=== PATIENT | female | born 1940 | race Hispanic/Latino ===

== ENCOUNTER 2016-06-29 11:48 | Inpatient (IN) | payer MEDICARE, BC ==
[2016-06-29 12:08] VITALS: BMI 41.5
[2016-06-29] MEDS ORDERED: Sodium Chloride 0.9% 1,000 ML IV STA ×4 (12:18→17:48)
--- NOTE | 2016-06-29 12:28 | ED PDOC ---
Arrival/HPI - General Chief Complaint: Trauma Time Seen by Provider: 06/29/16 12:07 Historian: Patient - History of Present Illness Narrative History of Present Illness (Text): 06/29/16 12:30 Sneha Duarte is 75 year old female, whose past medical history includes CHF , TIA, hypertension, leg cellulitis, and hypothyroidism, presents to the emergency department for evaluation following a fall 3 days prior to arrival. States that she was feeling dizzy and about to pass out before she fell to the ground. Patient was unable to get back onto her feet after, and remained on the ground for 3 days until her neighbour checked up on her today. Patient sustained bruises to the right sided face and shoulder due to fall. Denies any loss of consciousness, or weakness/numbness to extremity. Denies fever, chills, chest pain, shortness of breath, nausea, vomiting, diarrhea, urinary incontinence, or any other complaints at this time. Time/Duration: < week (3 days ) Symptom Onset: Gradual Severity Level: Moderate Activities at Onset: Significant Context: Other (fall ) Past Medical History - Provider Review Nursing Documentation Reviewed: Yes - Infectious Disease Hx of Infectious Diseases: None - Cardiac Hx Cardiac Disorders: No Hx Pacemaker: No - Neurological Hx Paralysis: No - Endocrine/Metabolic Hx Endocrine Disorders: Yes Hx Hypothyroidism: Yes - Hematological/Oncological Hx Blood Disorders: Yes Hx Blood Transfusions: Yes Hx Blood Transfusion Reaction: No - Integumentary Other/Comment: cellulitis bilateral lower legs - Musculoskeletal/Rheumatological Hx Musculoskeletal Disorders: Yes - Gastrointestinal Hx Gastrointestinal Disorders: Yes (GI BLEED) - Genitourinary/Gynecological Hx Genitourinary Disorders: No Hx Reproductive Disorders: No - Psychiatric Hx Psychophysiologic Disorder: No Hx Emotional Abuse: No Hx Physical Abuse: No Hx Substance Use: No - Surgical History Hx Hysterectomy: Yes (1983) Hx Orthopedic Surgery: Yes (bilateral knee replacements) Other/Comment: right knee replacement 2012, left knee replacement 2003 - Anesthesia Hx Anesthesia Reactions: No Hx Malignant Hyperthermia: No - Suicidal Assessment Feels Threatened In Home Enviroment: No Family/Social History - Physician Review Nursing Documentation Reviewed: Yes Family/Social History: No Known Family HX Smoking Status: Never Smoked Hx Alcohol Use: No Hx Substance Use: No Hx Substance Use Treatment: No Allergies/Home Meds Allergies/Adverse Reactions: Allergies No Known Allergies Allergy (Verified 06/29/16 12:08) Home Medications: Home Meds Medication Instructions Recorded Confirmed Levothyroxine Sodium [Synthroid] 75 mcg PO DAILY 07/19/12 07/31/15 Linagliptin [Tradjenta] 5 mg PO DAILY 07/19/12 07/31/15 Cholecalciferol [Vitamin D3] 2,000 iu PO DAILY 08/08/13 07/31/15 Cyanocobalamin [Vitamin B12] 1,000 mcg PO BID 08/08/13 07/31/15 Fish Oil [Beeler 3] 1,000 mg PO DAILY 08/08/13 07/31/15 Potassium Chloride 20 meq PO DAILY 08/08/13 07/31/15 Aspirin [Ecotrin] 81 mg PO DAILY 07/27/15 07/31/15 Atorvastatin [Lipitor] 20 mg PO DAILY 07/27/15 07/31/15 Magnesium Oxide [Magnesium] 400 mg PO DAILY 07/27/15 07/31/15 Review of Systems - Physician Review All systems were reviewed & negative as marked: Yes - Review of Systems Constitutional: Normal. absent: Fatigue, Fevers Respiratory: Normal. absent: SOB, Cough Cardiovascular: absent: Chest Pain, Palpitations Gastrointestinal: absent: Abdominal Pain, Diarrhea, Nausea, Vomiting Musculoskeletal: Other (right shoulder and right facial ecchymosis ) Skin: Normal Neurological: Dizziness. absent: Focal Weakness Psychiatric: Normal Physical Exam - Physical Exam Narrative Physical Exam (Text): No nasal bone deformity or tenderness. There is right facial ecchymosis. No neck midline tenderness, thoracic and lumbar spine with no midline tenderness. Pt moving b/l upper and lower extremities without difficulty, 5/5 strength, with full active and passive ROM. Right shoulder ecchymosis with tenderness to palpation. Distal neurovasc fully intact. Abd soft/nt/ng, no hematomas, no peritoneal signs. Neg. pelvic rock. - Physical exam Patient appears age appropriate, speaking full sentences without difficulty - Systems Exam Head: Present: Normocephalic, right sided facial ecchymosis Pupils: Present: PERRL Extraocular Muscles: Present: EOMI Conjunctiva: Present: Normal Mouth: Present: Moist Mucous Membranes Neck: Present: Normal Range of Motion. No: MIDLINE TENDERNESS, Paraspinal Tenderness Respiratory/Chest: Present: Clear to Auscultation, Good Air Exchange. No: Respiratory Distress, Accessory Muscle Use, Tachypneic Cardiovascular: Present: Regular Rate and Rhythm, Normal S1, S2, Peripheral Pulses Present. No: Murmurs Abdomen: Present: Normal Bowel Sounds, No: Tenderness, Peritoneal Signs, Rebound, Guarding, Distention Back: Present: Normal Inspection. No: Midline Tenderness, Paraspinal Tenderness Upper Extremity: Present: Right shoulder ecchymosis with tenderness to palpation No: Cyanosis, Edema Lower Extremity: Present: Normal Inspection. No: Edema Neurological: Present: GCS=15, Speech Normal, cranial nerves II through XII fully intact with no cerebellar abnormality, neuro-sensory fully intact. No focal neurological deficits. Skin: Present: Warm, Dry, Normal Color. No: Rashes Lymphatic: Present: OX3, NI, NC Psychiatric: Present: Alert, Oriented x 3, Normal Insight, Normal Concentration Vital Signs Reviewed: Yes Vital Signs Temp Pulse Resp BP Pulse Ox 06/29/16 17:00 105 H 18 135/69 96 06/29/16 15:11 99 H 18 117/67 98 06/29/16 13:48 98 H 18 99/53 L 95 06/29/16 11:48 98.1 F 98 H 19 124/65 98 Blood Pressure: Normal Pulse: Tachycardic Respiratory Rate: Normal Appearance: Positive for: Well-Appearing, Non-Toxic, Comfortable Pain Distress: None Mental Status: Positive for: Alert and Oriented X 3 Finger Stick Blood Glucose: 261 Medical Decision Making ED Course and Treatment: Impression: A 75 year old female who presents to the emergency department complaining of bruising to right sided face and right shoulder following a fall 3 days prior to arrival. States that she has been feeling dizzy and about to pass out before falling down. On PE, there is ecchymosis to right sided face, and right shoulder. Differential Diagnosis include but are not limited to: Plan: -- CT cervical spine -- CT head -- CT maxillofacial -- EKG -- Labs, cardiac enzymes -- Chest X-ray -- Hip and Right shoulder X-ray -- Blood culture -- Urine culture -- Urinalysis -- Reassess and disposition Progress Notes: 06/29/16 14:[address] scan results, which were unremarkable. 06/29/16 16:[address] Bains who states he will evaluate the patient. Dr. Charlotte mccray. Case discussed with Dr. Tellez, covering for Dr. Porter, who accepts to Dr. Porter's service. Patient in no distress. Patient agrees with plan. - Critical Care Critical Care Minutes: 30 minutes - Lab Interpretations Lab Results: 06/29/16 12:56 06/29/16 15:20 Lab Results 06/29/16 18:05: pO2 96 H, VBG pH 7.40, VBG pCO2 36.0 L, VBG HCO3 22.3, VBG Total CO2 23.4, VBG O2 Sat (Calc) 97.9 H, VBG Base Excess -2.0 L, VBG Potassium 4.7, Sodium 134.0, Chloride 101.0, Glucose 216 H, Lactate 2.2 H, FiO2 21.0, Venous Blood Potassium 4.7 06/29/16 15:20: Sodium 134, Chloride 94 L, Potassium 5.1 H, Carbon Dioxide 23, Anion Gap 22 H, BUN 42 H, Creatinine 2.5 H, Est GFR ( Amer) 23, Est GFR ( Non-Af Amer) 19, Random Glucose 252 H, Calcium 8.9, Total Bilirubin 1.6 H, AST 1038 H, ALT 285 H, Alkaline Phosphatase 106, Lactate Dehydrogenase 2310 H, Total Creatine Kinase 85307 H, CK-MB (CK-2) 431.0 H, CK-MB (CK-2) % 0.8 L, Troponin I 0.12, Total Protein 7.7, Albumin 3.6, Globulin 4.1, Albumin/Globulin Ratio 0.9 L, Salicylates < 1 L, Acetaminophen < 10.0 L 06/29/16 14:27: Urine Color Yellow, Urine Appearance Clear, Urine pH 6.0, Ur Specific [place] 1.010, Urine Protein 30 H, Urine Glucose (UA) Negative, Urine Ketones Negative, Urine Blood Small H, Urine Nitrate Negative, Urine Bilirubin Negative, Urine Urobilinogen 0.2, Ur Leukocyte Esterase Negative, Urine RBC 0 - 2, Urine WBC 0 - 2, Ur Epithelial Cells 0 - 2 06/29/16 12:56: WBC 37.8 H* D, RBC 4.73, Hgb 15.6, Hct 44.3, MCV 93.7, MCH 33.0 , MCHC 35.2, RDW 14.3, Plt Count 397, MPV 10.2, Neutrophils % (Manual) 91 H, Lymphocytes % (Manual) 2 L, Monocytes % (Manual) 7 H, Platelet Evaluation Normal , PT 11.2, INR 1.04, APTT 46.7 H I have reviewed the lab results: Yes - RAD Interpretation Narrative RAD Interpretations (Text): PROCEDURE: CT HEAD WITHOUT CONTRAST. Creator : Evelio Salazar MD IMPRESSION: Normal CT of the Head PROCEDURE: CT Cervical Spine without contrast Creator : Evelio Salazar MD IMPRESSION: No acute fracture. PROCEDURE: CT MAXILLOFACIAL BONES WITHOUT CONTRAST Creator : Evelio Salazar MD IMPRESSION: No acute fracture. PROCEDURE: X-ray Hip/Pelvis Creator : Evelio Salazar MD IMPRESSION: Normal Bone Xray. PROCEDURE: X-ray Shoulder Creator : Evelio Salazar MD IMPRESSION: No acute fracture Radiology Orders: 06/29/16 12:18 MAXILLOFACIAL W/O CONTRAST [CT] Stat CHEST PORTABLE [RAD] Stat 06/29/16 12:19 CERVICAL SPINE W/O CONTRAST [CT] Stat HEAD W/O CONTRAST [CT] Stat HIP MIN 2V W/ PELVIS SUN [RAD] Stat SHOULDER RIGHT [RAD] Stat 06/29/16 17:20 EXT UPPER W/O CONTRAST RIGHT [CT] Stat 06/29/16 17:29 ABDOMEN COMPLETE [US] Stat Prefitter Doors: Radiologist - Medication Orders Current Medication Orders: Sodium Chloride (Sodium Chloride 0.9%) 1,000 mls @ 999 mls/hr IV .Q1H1M STA Stop: 06/29/16 18:48 Pantoprazole Sodium (Protonix Inj) 40 mg IVP DAILY IAIN Discontinued Medications Sodium Chloride (Sodium Chloride 0.9%) 1,000 mls @ 1,000 mls/hr IV .Q1H STA Stop: 06/29/16 13:17 Last Admin: 06/29/16 14:09 Dose: 1,000 MLS/HR eMAR Start Stop Document 06/29/16 14:09 SARAH (Rec: 06/29/16 14:10 SARAH [id number]) Intravenous Solution Start Date 06/29/16 Start Time 13:30 End Date 06/29/16 End time 14:30 Total Infusion Time 60 Piperacillin Sod/Tazobactam Sod (Zosyn 4.5 Gm In Ns 100ml) 100 mls @ 200 mls/ hr IVPB STAT STA PRN Reason: Protocol Stop: 06/29/16 13:45 Last Admin: 06/29/16 14:10 Dose: 200 MLS/HR eMAR Start Stop Document 06/29/16 14:10 EWO (Rec: 06/29/16 14:10 EWO [id number]) Intravenous Solution Start Date 06/29/16 Start Time 14:10 End Date 06/29/16 End time 15:10 Total Infusion Time 60 Vancomycin HCl (Vancomycin 1gm) 250 mls @ 133.333 mls/hr IVPB STAT STA PRN Reason: Protocol Stop: 06/29/16 15:08 Last Admin: 06/29/16 15:32 Dose: 133.333 MLS/HR eMAR Start Stop Document 06/29/16 15:32 EWO (Rec: 06/29/16 15:32 EWO [id number]) Intravenous Solution Start Date 06/29/16 Start Time 15:15 End Date 06/29/16 End time 17:00 Total Infusion Time 105 Sodium Chloride (Sodium Chloride 0.9%) 1,000 mls @ 1,000 mls/hr IV .Q1H STA Stop: 06/29/16 16:50 Last Admin: 06/29/16 16:01 Dose: 1,000 MLS/HR eMAR Start Stop Document 06/29/16 16:01 EWO (Rec: 06/29/16 16:01 EWO [id number]) Intravenous Solution Start Date 06/29/16 Start Time 16:01 End Date 06/29/16 End time 17:01 Total Infusion Time 60 Sodium Chloride (Sodium Chloride 0.9%) 1,000 mls @ 999 mls/hr IV .Q1H1M STA Stop: 06/29/16 18:26 Last Admin: 06/29/16 17:48 Dose: 999 MLS/HR eMAR Start Stop Document 06/29/16 17:48 EWO (Rec: 06/29/16 17:49 EWO [id number]) Intravenous Solution Start Date 06/29/16 Start Time 17:48 End Date 06/29/16 End time 18:48 Total Infusion Time 60 - Scribe Statement The provider has reviewed the documentation as recorded by the Scribe Perla Muthuraman Provider Attestation: All medical record entries made by the Danicaibsharron were at my direction and personally dictated by me. I have reviewed the chart and agree that the record accurately reflects my personal performance of the history, physical exam, medical decision making, and the department course for this patient. I have also personally directed, reviewed, and agree with the discharge instructions and disposition. Disposition/Present on Arrival - Present on Arrival Any Indicators Present on Arrival: No History of DVT/PE: No History of Uncontrolled Diabetes: Yes Urinary Catheter: No History of Decub. Ulcer: No History Surgical Site Infection Following: None - Disposition Have Diagnosis and Disposition been Completed?: Yes Diagnosis: Rhabdomyolysis Disposition: HOSPITALIZED Disposition Time: 17:40 Patient Plan: Admission Condition: CRITICAL
[2016-06-29 13:09] LABS: HEMATOCRIT 44.3 % (36.0-48.0); MEAN CELL VOLUME 93.7 fL (80.0-105.0); MEAN CORPUSCULAR HGB CONC 35.2 g/dl (31.0-37.0); MEAN PLATELET VOLUME 10.2 fl (7.0-11.0); PLATELET COUNT 397 10^3/uL (120.0-450.0); RED CELL DISTRIBUTION WIDTH 14.3 % (11.5-14.5)
[2016-06-29 13:13] LABS: ADD MANUAL DIFF? YES
[2016-06-29 13:15] LABS: WHITE BLOOD COUNT 37.8 10^3/ul (4.5-11.0)
[2016-06-29 13:16] LABS: INR 1.04 (0.93-1.08); PARTIAL THROMBOPLASTIN TIME 46.7 Seconds (23.7-30.8)
[2016-06-29] MEDS ORDERED: Piperacill/Tazo 4.5gm in NS 100 ML IVPB STA (13:16)
[2016-06-29] MEDS ORDERED: Vancomycin 1gm in NS 250ml 250 ML IVPB STA ×2 (13:16→13:24)
--- NOTE | 2016-06-29 13:20 | CT ---
PROCEDURE: CT HEAD WITHOUT CONTRAST. HISTORY: fall COMPARISON: None available. TECHNIQUE: Axial computed tomography images were obtained through the head/brain without intravenous contrast. Radiation dose: Total exam DLP = 774 mGy-cm. This CT exam was performed using one or more of the following dose reduction techniques: Automated exposure control, adjustment of the mA and/or kV according to patient size, and/or use of iterative reconstruction technique. FINDINGS: HEMORRHAGE: No intracranial hemorrhage. BRAIN: No mass effect or edema. No atrophy or chronic microvascular ischemic changes. VENTRICLES: Unremarkable. No hydrocephalus. CALVARIUM: Unremarkable. PARANASAL SINUSES: Unremarkable as visualized. No significant inflammatory changes. MASTOID AIR CELLS: Unremarkable as visualized. No inflammatory changes. OTHER FINDINGS: None. IMPRESSION: Normal CT of the Head.
--- NOTE | 2016-06-29 13:22 | CT ---
PROCEDURE: CT Cervical Spine without contrast HISTORY: <fall> COMPARISON: None available. TECHNIQUE: Axial computed tomography images were obtained of the cervical spine without the use of intravenous contrast. Coronal and sagittal reformatted images were created and reviewed. Radiation dose: Total exam DLP = 624 mGy-cm. This CT exam was performed using one or more of the following dose reduction techniques: Automated exposure control, adjustment of the mA and/or kV according to patient size, and/or use of iterative reconstruction technique. FINDINGS: VERTEBRAE: No fracture. Normal alignment. No destructive bony lesion. DISCS/SPINAL CANAL/NEURAL FORAMINA: Multilevel degenerative disc disease with disc space narrowing and spondylosis. PARASPINAL SOFT TISSUES: Unremarkable. OTHER FINDINGS: None. IMPRESSION: No acute fracture.
--- NOTE | 2016-06-29 13:26 | CT ---
PROCEDURE: CT MAXILLOFACIAL BONES WITHOUT CONTRAST HISTORY: fall COMPARISON: None TECHNIQUE: Contiguous axial CT images of the maxillofacial bones were obtained. Coronal and sagittal reformats were generated. Radiation dose: Total exam DLP = 761 mGy-cm. This CT exam was performed using one or more of the following dose reduction techniques: Automated exposure control, adjustment of the mA and/or kV according to patient size, and/or use of iterative reconstruction technique. FINDINGS: NASAL BONES: Unremarkable. ORBITS: Unremarkable. PARANASAL SINUSES/ MASTOIDS: Clear. MAXILLA: Unremarkable. MANDIBLE/ TEMPOROMANDIBULAR JOINTS: Unremarkable. SKULL BASE: Unremarkable. TEMPORAL BONES: Middle ears and mastoid grossly unremarkable. OTHER FINDINGS: None. IMPRESSION: No acute fracture.
[2016-06-29 13:35] LABS: NEUTROPHIL 91 % (50.0-70.0); PLATELET ESTIMATE NORMAL (NORMAL)
[2016-06-29 15:00] LABS: URINE BILIRUBIN NEGATIVE (NEGATIVE); URINE BLOOD SMALL (NEGATIVE); URINE GLUCOSE (UA) NEGATIVE (NEGATIVE); URINE KETONE NEGATIVE (NEGATIVE); URINE LEUKOCYTE ESTERASE NEGATIVE Leu/uL (NEGATIVE); URINE PROTEIN 30 mg/dL (<30 mg/dL); URINE UROBILINOGEN 0.2 E.U./dL (<1 E.U./dL)
[2016-06-29 15:06] LABS: URINE APPEARANCE CLEAR (CLEAR); URINE COLOR YELLOW (YELLOW)
[2016-06-29 15:07] LABS: URINE EPITHELIAL CELLS 0 - 2 /hpf (0-5); URINE RBC 0 - 2 /hpf (0-2); URINE WBC 0 - 2 /hpf (0-6)
[2016-06-29 15:39] LABS: ALB/GLOB RATIO 0.9 (1.1-1.8); BILIRUBIN,TOTAL 1.6 mg/dL (0.2-1.3); CALCIUM 8.9 mg/dL (8.4-10.5); POTASSIUM 5.1 mmol/L (3.6-5.0); TOTAL PROTEIN 7.7 g/dL (5.8-8.3)
--- NOTE | 2016-06-29 15:59 | RAD ---
HISTORY: fall COMPARISON: No prior FINDINGS: BONES: Normal. No fracture. JOINTS: Normal. No osteoarthritis. SOFT TISSUE: Normal. OTHER FINDINGS: None . IMPRESSION: Normal Bone Xray.
--- NOTE | 2016-06-29 16:00 | RAD ---
PROCEDURE: Radiographs of the Right Shoulder HISTORY: fall COMPARISON: No prior. FINDINGS: BONES: Normal. No fracture. JOINTS: Degenerative changes of the acromioclavicular joint. SOFT TISSUES: Normal. OTHER FINDINGS: None. IMPRESSION: No acute fracture.
--- NOTE | 2016-06-29 16:02 | RAD ---
HISTORY: cough COMPARISON: No prior. FINDINGS: LUNGS: No active pulmonary disease. PLEURA: No significant pleural effusion identified, no pneumothorax apparent. CARDIOVASCULAR: Normal. OSSEOUS STRUCTURES: No significant abnormalities. VISUALIZED UPPER ABDOMEN: Normal. OTHER FINDINGS: None. IMPRESSION: No active disease.
[2016-06-29 16:04] LABS: TROPONIN I 0.12 ng/mL
[2016-06-29 18:30] LABS: AMYLASE 127 U/L (35-125); LIPASE 40 U/L (23-300)
[2016-06-29] MEDS: Sodium Chloride 0.9% 1,000 ML IV SCH (21:30)
--- NOTE | 2016-06-29 21:49 | CP.PCM.CON ---
History of Present Illness - History of Present Illness History of Present Illness: General Surgery Consult note for Dr. Elias Consulted for: Possible acute cholecystitis Pt is a 75y/o F with PMH including CHF, TIA, DM, and hypothyroidism and PSH of hysterectomy and BL knee replacements who presented the ED after falling and lying on the right side on the ground for 3 days after a syncopal episode. Patient reports that prior to her fall she had nausea and green vomit for 3 days. She was just coming out of the bathroom after vomiting when she felt light headed and fell to the ground, landing on her right side. Patient recalls decreased appetite a few days prior to her nausea and vomiting, but denies any abdominal pain, fevers, chills, diarrhea, constipation, chest pain, SOB, or any other symptoms at the time. Patient states that since her fall her nausea and vomiting have resolved and she was able to tolerate lindsey sonal with no negative sequela. Surgery is consulted for possible acute cholecystitis with an elevated bilirubin, AST, ALT, and amylase. Patient also has signs of rhabdomyolisis. PMH: CHF, DVT, TIA, HTN, DM, HLD, degenerative arthritis, hypothyroidism, chronic lower extremity cellulitis PSH: hysterectomy and BL knee replacements All: NKDA Social: 32 year history 1PPD cigarettes quit 30 years ago, admits social ETOH, denies illicit drug use, lives alone Review of Systems - Review of Systems All systems: reviewed and no additional remarkable complaints except (as per HPI ) - Constitutional Constitutional: As Per HPI, Fatigue. absent: Fever, Headache - Cardiovascular Cardiovascular: Leg Edema. absent: Chest Pain, Chest Pain with Activity, Dyspnea, Dyspnea on Exertion - Respiratory Respiratory: absent: Cough, Dyspnea, Dyspnea on Exertion - Gastrointestinal Gastrointestinal: As Per HPI. absent: Constipation, Diarrhea, Dyspepsia, Hematemesis - Genitourinary Genitourinary: absent: Difficulty Urinating, Dysuria, Hematuria - Musculoskeletal Musculoskeletal: Arthralgias, Numbness (right arm). absent: Back Pain Additional comments: unable to move right arm since fall - Integumentary Integumentary: Dry Skin, Skin Ulcer (back, groin, and under breasts) Additional comments: chronic cellulitis of the legs BL Past Patient History - Infectious Disease Hx of Infectious Diseases: None - Past Medical History & Family History Past Medical History?: Yes Past Family History: Reviewed and not pertinent - Past Social History Smoking Status: Former Smoker (>30 pack years 1 PPD, quit when 43 y/o) Alcohol: Social Drugs: Denies Home Situation {Lives}: Alone - CARDIAC Hx Cardiac Disorders: No Hx Hypercholesterolemia: Yes Hx Hypertension: Yes Hx Pacemaker: No - NEUROLOGICAL Hx Paralysis: No Hx Transient Ischemic Attacks (TIA): Yes - ENDOCRINE/METABOLIC Hx Endocrine Disorders: Yes Hx Diabetes Mellitus Type 2: Yes Hx Hypothyroidism: Yes - HEMATOLOGICAL/ONCOLOGICAL Hx Blood Disorders: Yes Hx Blood Transfusions: Yes Hx Blood Transfusion Reaction: No Other/Comment: DVT - INTEGUMENTARY Hx Cellulitis: Yes (BL LE) Other/Comment: cellulitis bilateral lower legs - MUSCULOSKELETAL/RHEUMATOLOGICAL Hx Musculoskeletal Disorders: Yes Hx Degenerative Joint Disease: Yes - GASTROINTESTINAL Hx Gastrointestinal Disorders: Yes (GI BLEED) - GENITOURINARY/GYNECOLOGICAL Hx Genitourinary Disorders: No Hx Reproductive Disorders: No - PSYCHIATRIC Hx Psychophysiologic Disorder: No Hx Emotional Abuse: No Hx Physical Abuse: No Hx Substance Use: No - SURGICAL HISTORY Hx Surgeries: Yes Hx Hysterectomy: Yes (1983) Hx Orthopedic Surgery: Yes (bilateral knee replacements) Other/Comment: right knee replacement 2012, left knee replacement 2003 - ANESTHESIA Hx Anesthesia Reactions: No Hx Malignant Hyperthermia: No Meds Allergies/Adverse Reactions: Allergies Allergy/AdvReac Type Severity Reaction Status Date / Time No Known Allergies Allergy Verified 06/29/16 12:08 - Medications Medications: Current Medications Piperacillin Sod/Tazobactam Sod (Zosyn 2.25 Gm In 0.9% 100 Ml) 100 mls @ 100 mls/hr IVPB Q6 IAIN PRN Reason: Protocol Stop: 06/30/16 06:59 Sodium Chloride (Sodium Chloride 0.9%) 1,000 mls @ 200 mls/hr IV .Q5H IAIN Pantoprazole Sodium (Protonix Inj) 40 mg IVP DAILY IAIN Physical Exam - Constitutional Appears: Non-toxic, No Acute Distress - Head Exam Head Exam: NORMOCEPHALIC. absent: ATRAUMATIC (Echymosis over the right face) - Eye Exam Eye Exam: Normal appearance. absent: Conjunctival injection, Scleral icterus - ENT Exam ENT Exam: Mucous Membranes Moist, Normal Oropharynx - Respiratory Exam Respiratory Exam: NORMAL BREATHING PATTERN. absent: Accessory Muscle Use, Respiratory Distress - Cardiovascular Exam Cardiovascular Exam: Tachycardia, REGULAR RHYTHM - GI/Abdominal Exam GI & Abdominal Exam: Distended (moderate distention due to body habitus), Mass ( palpable mass in the RUQ), Soft. absent: Tenderness - Extremities Exam Extremities exam: Positive for: pedal edema (2+ pitting edema from the feet to the knees BL), pedal pulses present. Negative for: calf tenderness, tenderness Additional comments: plaques of dry skin, mild erythema, no visible wounds or ulcers. Right arm 0/0 motor strength, no sensation to light touch, warm with good capillary refill - Neurological Exam Neurological exam: Alert, Oriented x3 - Skin Additional comments: Wet skin under the breast folds with superficial skin breakdown BL, superficial skin breakdown in the groin BL Results - Vital Signs Recent Vital Signs: Last Vital Signs Temp 98.1 F 06/29/16 11:48 Pulse 100 H 06/29/16 18:54 Resp 18 06/29/16 18:54 BP 103/45 L 06/29/16 18:54 Pulse Ox 97 06/29/16 18:54 - Labs Result Diagrams: 06/29/16 12:56 06/29/16 15:20 Assessment & Plan - Assessment and Plan (Free Text) Assessment: 75F with PMH including DM, hypothyroidism, HTN, and CHF with PSH including hysterectomy 3 days s/p fall recent history of nausea and bilious vomiting and current elevated LFT's afebrile, VSS with mild tachycardia WBC of 37.8 Elevated LFTs: bilirubin 1.6, AST of 1038, ALT 285 Alkaline phosphatase WNL Amylase 127 Abd US: 5 x6 x5cm echogenic lesion in the gallbladder fundus, no wall thickening , no sonographic de la vega's, CBD 0.7-0.86cm, no visible stones. Plan: -No indication for emergent surgery at this time -Vitals are stable, patient is afebrile -Leukocytosis could be an acute phase reaction -Patient is asymptomatic, abdominal exam not acute -Current DIMITRY -Abdominal US without signs of inflammation -CT of the abdomen and pelvis with PO contrast -MRCP -Close follow up with serial abdominal exams -f/u CBC, CMP -f/u GI recs -IVF -Continue Abx -NPO -barrier skin cream for areas of skin breakdown Thank you for this consult Further recs per Dr. Curt Lua, PGY1
--- NOTE | 2016-06-29 22:08 | US ---
EXAM: US Abdomen Complete CLINICAL HISTORY: 75 years old, female; Pain; Abdominal pain; Generalized; Additional info: Obstructive jaundice TECHNIQUE: Real-time ultrasound of the abdomen (complete) with image documentation. COMPARISON: US - ABDOMEN COMPLETE 03/15/2015 11:44:16 AM FINDINGS: Liver: Enlarged, 18.1 cm. Fatty infiltration. No mass. No intrahepatic ductal dilatation. Gallbladder: Gallstones. 5 x 6 x 5 cm echogenic, nonshadowing lesion within gallbladder fundus. No wall thickening. No sonographic Fournier's sign. Common bile duct: Up to 0.86 cm in diameter. No stones. Pancreas: Unremarkable as visualized. Kidneys: Normal echogenicity. Several renal cysts, largest measuring up to 6.1 cm. No hydronephrosis. Spleen: No splenomegaly. Aorta: Unremarkable. No aneurysm. Inferior vena cava: Unremarkable. Free fluid: No significant free fluid. IMPRESSION: 1. Gallbladder lesion. DDX: Neoplasm, tumefactive sludge. Followup as clinically warranted. 2. Biliary ductal dilatation. Suggest MRCP for further evaluation. 3. Cholelithiasis. 4. Incidental/non-acute findings are described above.
[2016-06-29] MEDS ORDERED: Iohexol 240 (50 ml) ONE (22:39)
--- NOTE | 2016-06-29 23:35 | CARD ---
APPROVED REPORT EKG Measurement Heart [id number] <Conclusion> Sinus tachycardia Possible Left atrial enlargement Borderline ECG
[2016-06-29] MEDS: Piperacillin/Tazobact 2.25gm 100 ML IVPB SCH (23:58)
[2016-06-30 04:15] LABS: ALB/GLOB RATIO 0.8 (1.1-1.8); CALCIUM 7.9 mg/dL (8.4-10.5); POTASSIUM 4.8 mmol/L (3.6-5.0)
[2016-06-30] MEDS ORDERED: Sodium Chloride 0.9% 250 ML IV STA (04:15)
[2016-06-30] MEDS: Nystatin 100,000 Units/gm Topical Pow(15 gm) TOP SCH ×3 (04:46→17:00)
[2016-06-30] MEDS: Piperacillin/Tazobact 2.25gm 100 ML IVPB SCH (05:13)
[2016-06-30] MEDS: Sodium Chloride 0.9% 1,000 ML IV SCH ×2 (05:14→22:28)
[2016-06-30 05:47] LABS: HEMATOCRIT 37.1 % (36.0-48.0); MEAN CELL VOLUME 92.3 fL (80.0-105.0); MEAN CORPUSCULAR HEMOGLOBIN 31.8 pg (25.0-35.0); MEAN CORPUSCULAR HGB CONC 34.5 g/dl (31.0-37.0); MEAN PLATELET VOLUME 9.8 fl (7.0-11.0); PLATELET COUNT 311 10^3/uL (120.0-450.0); RED CELL DISTRIBUTION WIDTH 14.4 % (11.5-14.5); WHITE BLOOD COUNT 20.7 10^3/ul (4.5-11.0)
[2016-06-30 06:01] LABS: ADD MANUAL DIFF? YES
[2016-06-30 06:16] LABS: ALB/GLOB RATIO 0.8 (1.1-1.8); CALCIUM 7.3 mg/dL (8.4-10.5); POTASSIUM 4.6 mmol/L (3.6-5.0); TOTAL PROTEIN 6.6 g/dL (5.8-8.3)
[2016-06-30] MEDS: Meropenem 1g/NS 100mL IVPB 100 ML IVPB SCH ×2 (06:43→22:28)
[2016-06-30] MEDS: Linezolid 600 mg in D5W 300 ml 300 ML IVPB SCH ×2 (06:50→22:29)
[2016-06-30 06:57] LABS: BAND 4 % (0-2); NEUTROPHIL 82 % (50.0-70.0); PLATELET ESTIMATE NORMAL (NORMAL)
--- NOTE | 2016-06-30 07:45 | CT ---
PROCEDURE: CT right upper extremity HISTORY: plexus hematoma COMPARISON: Not available TECHNIQUE: 2.5 mm contiguous axial sections were acquired through the right upper extremity from the supraclavicular region through the elbow. Sagittal and coronal images were reformatted from the axial scan. FINDINGS: The examination is suboptimally performed for evaluation of brachia plexus due to asymmetric positioning of the patient. There is no alexandro hematoma seen along the course of the brachial plexus. There is ill-defined soft tissue density seen along the course of the brachia plexus. This may represent blood products. Please note that evaluation with computed tomography, without intravenous contrast, is a limited method of evaluation for brachia plexus pathology. If there is continued clinical concern, recommend evaluation with magnetic resonance imaging. There is no osseous fracture appreciated. Glenohumeral articulation appears unremarkable. There is mild acromioclavicular degenerative arthritis. Evaluation of the visualized lungs limited. There is subsegmental atelectasis at the right lung base. Note is made of a 1.2 cm nodule posterior to the right lobe of the thyroid. Possibility of a parathyroid nodule must be considered. Evaluation with thyroid ultrasound examination is suggested. Note is made of noncalcified gallstones. Evaluation with abdominal ultrasound is suggested. Right upper pole renal cortical cyst. IMPRESSION: No evidence of alexandro hematoma or mass effect along the visualized course of the right brachia plexus. Evaluation is limited by the absence of intravenous contrast and is better evaluated with magnetic resonance imaging. There is evidence of some soft tissue density, possibly blood, along the course of the brachia plexus. Brachia plexus pathology is better evaluated with magnetic resonance imaging. Possible right parathyroid nodule. Alternatively, this could represent a pedunculated thyroid nodule. Recommend correlation with thyroid ultrasound examination. Probable cholelithiasis. Correlate with ultrasound examination. Right upper pole renal cortical cyst. Preliminary interpretation of this examination was reported by [facility] at 6:34 p.m. on 06/29/2016. There is concurrence of this report with the preliminary interpretation.
--- NOTE | 2016-06-30 08:13 | CON ---
DATE: 06/29/2016 HISTORY OF PRESENT ILLNESS: This is a 75-year-old lady with history of CHF, TIA , hypertension, hypothyroidism who presented to the Emergency Department for evaluation of status post fall and right-sided face bruising. That happened 3 days ago, but she continued to feel fatigued and tired. The day prior to fall she vomited several times with bilious secretion. No hematemesis. The patient also denies loss of consciousness, chest pain, shortness of breath, diarrhea. Of note, patient had a biliary stent placed 2 years ago, which has since then, according to Dr. Duncan was removed. Of note patient was offered surgery at the time but refused PAST MEDICAL HISTORY: CHF, TIA, hypertension, hypothyroidism, biliary stricture status post stent placement and then removal. ALLERGIES: NKDA. MEDICATIONS: At home, Synthroid, Tradjenta, vitamin D3, vitamin B12, fish oil, potassium chloride, aspirin, Lipitor, metoprolol, Lasix, aspirin, Lipitor. FAMILY HISTORY: Noncontributory. SOCIAL HISTORY: No alcohol or illicit drug abuse. REVIEW OF SYSTEMS: Revealed 12 organ system other than mentioned in history of present illness is negative. PHYSICAL EXAMINATION: VITAL SIGNS: Blood pressure 135/69, heart rate 105, oxygen saturation 96% on room air, respiratory rate 18. HEAD AND NECK: Atraumatic. LUNGS: Clear to auscultation bilaterally. HEART: Regular rate and rhythm. S1, S2 normal. ABDOMEN: Soft, nontender, nondistended. MUSCULOSKELETAL: Some muscle rigidness associated with some puffiness in the right shoulder present as well. There are chronic cellulitic changes in both upper and lower extremities. NEUROLOGIC: The patient moves left upper extremity and both lower extremities; however, unable to move right upper extremity. She also does not have sensation on the right upper extremity. SKIN: Moist. PSYCHIATRIC: The patient is alert and oriented x3, comfortable. LABORATORY DATA: WBC 37.8, hemoglobin 15.6, platelet count 397. Sodium 134, potassium 5.1, chloride 94, carbon dioxide 23, BUN 42, creatinine 2.5, total bilirubin 1.6, AST 1038, ALT 285. CPK 52,270, LDH 2310. Troponin 0.12. Albumin 3.6. Urine is negative for leukocyte esterase and nitrites. She is negative for ketones. Tylenol level less than 10 and salicylate level less than 1. U-tox is pending. Chest x-ray revealed no active disease. Upper extremity CAT scan revealed no acute fracture. Cervical spine CT showed no acute fracture, multilevel degenerative disk disease with disk space narrowing and spondylosis. Shoulder x-ray on the right side did not reveal acute fracture; however, CAT scan of the upper extremity on the right side is pending. Hip and pelvis x-ray showed normal bone x-ray. Head CT: No acute intracranial pathologies. The patient received 2 liters of normal saline in the Emergency Room and additional 2 liters of normal saline will be given.. ASSESSMENT AND PLAN: This is a 75-year-old lady who presented with severe rhabdomyolysis and associated with it acute kidney injury in the setting of significantly elevated LFTs. Likely to most part related to rhabfo, but component of liver origin can not be ruled out. The total bilirubin is slightly elevated. The patient did not ingest any Tylenol recently. I will, however, order a hepatitis profile as well. I will also order abdominal ultrasound. I will continue with aggressive fluid resuscitation. I will put a Briones catheter in. I will get an ABG, lactic acid and if the ABG showed acidosis I will proceed with maintaining bicarb fluid. I am concerned about right upper shoulder. I am waiting for right upper extremity CAT scan results; however meanwhile, I will give a call to neurology and general surgery to rule out compartment syndrome. Of note, she has good pulse on right radial artery. The arm is warm and nontender on palpation. Nephrology consult was called as well. The patient has some leukocytosis. A septic workup initiated and broad spectrum antibiotics started in the Emergency Room. I will continue to target euvolemia, euglycemia, normothermia and oxygen saturation more than 90%. I will continue with DVT and GI prophylaxis. At this time, patient will be n.p.o. and I will hold statins. Abdo US and CT: suspicious for acute cholecystitis. HIDA ordered, Surgery and GI notified ccm time 40 min Delvin Bains MD cc: [id number] TT: 06/29/2016 19:02:22 Confirmation # [id number] Dictation # [id number] mn DAMIAN
--- NOTE | 2016-06-30 08:15 | CON ---
DATE: 06/29/2016 REASON FOR CONSULTATION: Abnormal LFTs. HISTORY OF PRESENT ILLNESS: This 75-year-old patient with a past medical history of CHF, TIA, hypert ension, hypothyroidism, history of common bile duct stone, status post ERCP, removal of stone, presen ts with a fall at home, and she was lying on the floor for about 3 days and the neighbor found and ca lled the ambulance. The patient denies any loss of consciousness. Complains of . Right should er ecchymosis and facial ecchymosis noted. Also found to have elevated liver enzymes, along with a C PK, suggestive of rhabdomyolysis . The patient has history of gallstones. GI consultation was requested to evaluate this. The patient denies any abdominal pain. Has episodes of nausea and vomit ing. No bleeding per rectum. No diarrhea. No fever. OTHER PAST MEDICAL HISTORY: As above. Significant for history of DVT, cellulitis, obstructive sleep apnea, status post CVA, diabetes mellitus, CHF. The patient had a history of gastric ulcer. Endosc opy showed healed ulcer, questionable CBD stricture, polyp but the patient had an ERCP and removal of the multiple gallstones. The patient had, in 10/2014, an ERCP by Dr. Kelly at . He was found to have multiple stones removed. No CBD stones noticed and the stricture noticed. Brushings w ere negative. The patient recommend a cholecystectomy. The patient, multiple times discussed with the patient and also the family, declined any surgery. History of knee replacement and a hyster ectomy. ALLERGIES: No known drug allergies. SOCIAL HISTORY: smoker. Alcohol socially. REVIEW OF SYSTEMS: Positive as above. Other systems reviewed. History of fall ecchymosis ___ __ shoulder and also facial area. PHYSICAL EXAMINATION: GENERAL: The patient is lying on the bed, not in acute distress. Pulse 107, blood pressure is 115/6 0, respirations 27, and O2 is 96. HEENT: Ecchymosis present in the facial area. NECK: Supple. HEART: S1, S2 heard. LUNGS: Bilateral air entry present. ABDOMEN: Soft. There is no mass palpable. No tenderness. EXTREMITIES: Right shoulder ecchymosis and tenderness present. PSYCHIATRIC: Alert, oriented. NEUROLOGIC: Moves all the extremities. No focal deficit. LABORATORY DATA: WBC count is 37.8, hemoglobin 15.6, hematocrit 44.3. Lactate is 2,310. Creatinine 2.5, BUN 42, total bilirubin 1.6, AST 1,038, ALT , alkaline phosphatase normal at 106. The christa stubbs did have an ultrasound scan of the abdomen done, showed gallstones, thickened gallbladder wall. There is also echogenic material inside the gallbladder. CBD normal. IMPRESSION: This a 75-year-old patient with a history of diabetes mellitus, congestive heart failure , transient ischemic attack, history of gallstones, questionable common bile duct stricture, status p ost endoscopic retrograde cholangiopancreatography and removal of the common bile duct stones, and a history of stent placement and was removed in 10/2014. The patient was recommended surgery and refus ed cholecystectomy. The patient now admitted following a fall, found to have rhabdomyolysis with elevated transaminases, most likely related sent to the rhabdomyolysis. 1. Abnormal ultrasound. Would recommend a . The patient has a history of , history of p eptic ulcer disease, would recommend IV hydration and followup of the chemistry. 2. We will continue to closely follow up her care. At the present time, we will follow up the LFTs. I would request for an MRI with MRCP to further evaluate. Thank you very much for allowing us to participate in the care of the patient. I discussed with Dr. Bains earlier today regarding this patient. Kavon Duncan MD cc: [id number] TT: 06/30/2016 05:54:09 Confirmation # [id number] Dictation # [id number] tn
--- NOTE | 2016-06-30 08:47 | PN ---
DATE: 06/30/2016 The patient seen and examined at bedside. She is comfortable. She talks full sentences. She is not in respiratory or otherwise distress. VITAL SIGNS: Heart rate 114, blood pressure 115/63, oxygen saturation 96% on room air. The patient is on normal saline at 200 mL per hour. Urine output overnight only 100 mL and creatinine jumped up slightly to 2.7 from 2.5. PHYSICAL EXAMINATION: HEAD AND NECK: Atraumatic. LUNGS: Few crackles bibasilarly. HEART: Regular rate and rhythm. S1, S2 normal. ABDOMEN: Soft, nontender, nondistended. Abdomen is not tender, even in right upper quadrant. MUSCULOSKELETAL: There is chronic edema in both lower extremities and chronic cellulitic changes. The mild rigidity in the right upper extremity unchanged. SKIN: Moist. PSYCHIATRIC: The patient is alert and oriented x 3. LABORATORIES: WBC 20.7, down from 37.8, hemoglobin 12.8, platelet count 311. Sodium 132, potassium 4.6, chloride 100, BUN 47, creatinine 2.7, glucose 185, AST 1022, ALT 346. MEDICATIONS: Meropenem, Protonix, Zofran p.r.n., linezolid. ASSESSMENT AND PLAN: This is a 75-year-old lady with acute cholecystitis and concern for some hematoma around the brachial plexus. We will get Dr. Devries for evaluation of this plexus hematoma. We will continue with n.p.o., IV fluids , antibiotics, GI consult, HIDA scan, surgical consult. We will continue with ID consult. We will continue to target euvolemia, euglycemia, normothermia and oxygen saturation more than 90%. We will continue with urine output monitoring with aiming at a goal of 0.5 mL per kilogram per hour or more. Nephrology consult is pending. Neurology consult is pending as well. Addendum: HIDA scan confirmed acute cholecystitis. Neurology consult is appreciated-->"continue current Rx", rhabdo improved, discussed with nephro: pigmented nephropathy consistent with rhabdo related DIMITRY. Abx, NPO, IVF and surgery and GI follow up ccm time 40 min Delvin Bains MD cc: [id number] TT: 06/30/2016 08:46:43 Confirmation # [id number] Dictation # [id number] en MTDD
--- NOTE | 2016-06-30 09:28 | CP.PCM.PN ---
Subjective - Date & Time of Evaluation Date of Evaluation: 06/30/16 Time of Evaluation: 07:25 - Subjective Subjective: Surgery Progress note. Dr. Elias Pt seen and examined at bedside. Still c/o decreased sensation and motor to the RUE. Denies any abdominal pain. No N/V/D. No F/C. No CP/SOB Objective - Vital Signs/Intake and Output Vital Signs (last 24 hours): Temp Pulse Resp BP Pulse Ox 99.9 F H 118 H 25 H 94/56 L 95 06/30/16 04:00 06/30/16 07:00 06/30/16 07:00 06/30/16 07:00 06/30/16 07:00 Intake and Output: 06/30/16 06/30/16 06:59 18:59 Intake Total 3200 Output Total 100 Balance 3100 - Medications Medications: Current Medications Sodium Chloride (Sodium Chloride 0.9%) 1,000 mls @ 200 mls/hr IV .Q5H [facility] Last Admin: 06/30/16 05:14 Dose: 200 mls/hr Meropenem 1g/NS 100mL IVPB (Meropenem 1g/Ns 100ml Ivpb) 100 mls @ 100 mls/hr IVPB Q12 IAIN PRN Reason: Protocol Stop: 07/07/16 06:31 Last Admin: 06/30/16 06:43 Dose: 100 mls/hr Linezolid (Zyvox 600mg/300ml D5w) 300 mls @ 200 mls/hr IVPB Q12 IAIN PRN Reason: Protocol Stop: 07/07/16 06:31 Last Admin: 06/30/16 06:50 Dose: 200 mls/hr Insulin Human Lispro (Humalog Low) 0 units SC ACHS IAIN PRN Reason: Protocol Nystatin (Nystop Topical Powder) 0 gm TOP BID [facility] Last Admin: 06/30/16 04:46 Dose: 1 applic Ondansetron HCl (Zofran Inj) 4 mg IVP Q6H PRN PRN Reason: Nausea/Vomiting Pantoprazole Sodium (Protonix Inj) 40 mg IVP DAILY [facility] Last Admin: 06/30/16 09:01 Dose: 40 mg - Labs Labs: 06/30/16 05:40 06/30/16 05:40 PT 11.2 Seconds (9.9-11.8) 06/29/16 12:56 INR 1.04 (0.93-1.08) 06/29/16 12:56 APTT 46.7 Seconds (23.7-30.8) H 06/29/16 12:56 - Constitutional Appears: Well, No Acute Distress - Head Exam Head Exam: ATRAUMATIC, NORMAL INSPECTION, NORMOCEPHALIC - Eye Exam Eye Exam: EOMI, Normal appearance. absent: Scleral icterus - ENT Exam ENT Exam: Mucous Membranes Moist - Respiratory Exam Respiratory Exam: NORMAL BREATHING PATTERN - Cardiovascular Exam Cardiovascular Exam: Tachycardia. absent: JVD - GI/Abdominal Exam GI & Abdominal Exam: Soft. absent: Distended, Guarding, Rigid, Tenderness - Extremities Exam Additional comments: Right upper extremity: warm. Pulses intact. No sensation throughout arm. C4 dermatomal sensation intact. No motor throughout arm. - Neurological Exam Neurological Exam: Alert, Awake, Oriented x3 - Psychiatric Exam Psychiatric exam: Normal Affect, Normal Mood Assessment and Plan - Assessment and Plan (Free Text) Assessment: 75yo F here with fall. Hx of Biliary stent 2 years ago, since removed. Here with Nausea/Bilious vomiting elevated LFTs. Sepsis. - Still Tachycardic and hypotensive - T.bili now normal. LFTs trending down - ABD US - 5 x 6cm lesion in gallbladder fundus. Sludge. no wall thickening. CBD 0.7-0.86cm. - CT A/P: Distended GB, Gallstones, soft tissue mass in GB. Minimal fat stranding. (awaiting official report) - F/U MRCP - F/U HIDA - Consult Dr. Devries for R Brachial Plexus Neuropraxia - Barrier skin cream for areas of skin breakdown - NPO - Continue Abx Discussed case with Dr. Curt Matta PGY1 surgery pager: [phone]
--- NOTE | 2016-06-30 09:36 | CT ---
PROCEDURE: CT Abdomen and Pelvis without intravenous contrast HISTORY: nausea, vomiting COMPARISON: None. TECHNIQUE: Without contrast.. Contrast Dose: 0 Radiation dose: Total exam DLP = 1392.15 mGy-cm. This CT exam was performed using one or more of the following dose reduction techniques: Automated exposure control, adjustment of the mA and/or kV according to patient size, and/or use of iterative reconstruction technique. FINDINGS: LOWER THORAX: Subsegmental atelectasis medial right upper lobe along mediastinal pleural LIVER: No mass. No biliary dilatation. Small amount of pneumobilia in left hepatic lobe, nonspecific. Please note that patient has a history of biliary stent noted on the ERCP examination of 08/09/2013. This is not evident on current examination. GALLBLADDER AND BILE DUCTS: Multiple hyperdense foci within gallbladder likely noncalcified or partially calcified gallstones. Probable gallbladder sludge. Please correlate with ultrasound examination 06/29/2016. Distended gallbladder. Pericholecystic stranding about gallbladder fundus with mild mural thickening noted in fundal region. Findings raise suspicion of cholecystitis. PANCREAS: Unremarkable. No gross lesion or ductal dilatation. SPLEEN: Unremarkable. ADRENALS: Surface. Linear scar/atelectasis right middle lobe. Unremarkable. No mass. KIDNEYS AND URETERS: Multiple bilateral rounded low-attenuation masses consistent with cysts as demonstrated ultrasound examination of 06/29/2016. 3.7 cm right upper pole. 5.4 cm mid right kidney. 3.0 cm left lower pole. No renal calculus or hydronephrosis. VASCULATURE: Unremarkable. No aortic aneurysm. BOWEL: Unremarkable. No obstruction. No gross mural thickening. APPENDIX: Unremarkable. Normal appendix. PERITONEUM: Unremarkable. No free fluid. No free air. LYMPH NODES: Unremarkable. No enlarged lymph nodes. BLADDER: Decompressed around Briones catheter balloon. REPRODUCTIVE: Status post hysterectomy. BONES: Diffuse multilevel degenerative disc disease. Grade 1 anterolisthesis at L4-5 without spondylolysis. Multilevel central lumbar spinal stenosis most severe at L3-4. OTHER FINDINGS: None. IMPRESSION: Cholelithiasis. Possible gallbladder sludge. Please see report of abdominal ultrasound examination 06/29/2016 where the possibility of tumefactive sludge versus neoplasm was described. Mild pericholecystic stranding about gallbladder fundus with mild mural thickening of fundus. Possible cholecystitis. . Multiple bilateral renal cysts. Status post hysterectomy. Briones catheter. Multilevel degenerative disc disease in thoracolumbar spine with multilevel central lumbar spinal stenosis most pronounced at L3-4. Grade 1 anterolisthesis L4-5. Preliminary interpretation of this examination was reported by [facility] at 1:50 a.m. on 06/30/2016. There is concurrence of this report with the preliminary interpretation.
--- NOTE | 2016-06-30 09:44 | CP.CCUPN ---
<Diego Lama - Last Filed: 06/30/16 11:16> CCU Subjective - Physician Review Subjective (Free Text): Pt seen and examined at bedside. No acute events overnight. Pt is states she is thirsty. Pt still unable to move right arm. Pt had multiple bowel movements overnight. Denies CP, SOB, N/V/D, fevers, chills, headaches. CCU Objective - Vital Signs / Intake & Output Vital Signs (Last 4 hours): Vital Signs Pulse Resp BP Pulse Ox 06/30/16 07:00 118 H 25 H 94/56 L 95 06/30/16 06:30 116 H 26 H 93/48 L 95 06/30/16 06:00 114 H 26 H 101/53 L 95 Intake and Output (Last 8hrs): Intake & Output 06/29/16 06/30/16 06/30/16 22:59 06:59 14:59 Intake Total 3200 Output Total 100 Balance 3100 Weight 220 lb 246 lb 12.8 oz Intake: IV 2000 Left Hand 2000 Left Antecubital 0 Oral 1000 Tube Feeding 0 TPN/PPN 0 Blood Product 0 Lipid 0 Albumin 0 Other 200 Output: Urine 100 Urethral (Briones) 100 Stool 0 Urine/Stool Mix 0 Emesis 0 Oral Regurgitation 0 Other 0 Other: Voiding Method Indwelling Catheter Indwelling Catheter # Voids Urethral (Briones) 0 # Bowel Movements 3 - Physical Exam Head: Positive for: Ecchymosis (Along lower right face) Pupils: Positive for: PERRL Extroacular Muscles: Positive for: EOMI Conjunctiva: Positive for: Normal. Negative for: Icteric Respiratory/Chest: Positive for: Clear to Auscultation, Good Air Exchange. Negative for: Rales, Rhonchi Cardiovascular: Positive for: Regular Rate and Rhythm, Normal S1, S2. Negative for: Murmurs Abdomen: Positive for: Normal Bowel Sounds. Negative for: Tenderness, Distention, Guarding Upper Extremity: Positive for: NORMAL PULSES, Other (Unable to move right arm. Ecchymoses on right shoulder). Negative for: Tenderness Lower Extremity: Positive for: Normal Inspection, Edema (trace). Negative for: CALF TENDERNESS Neurological: Positive for: Speech Normal, Other (No sensation in right upper extremity to light touch or deep stimulation.). Negative for: Motor Func Grossly Intact, Normal Sensory Function Skin: Positive for: Warm, Dry, Other (Ecchymoses on right upper extremity) Psychiatric: Positive for: Alert, Oriented x 3, Normal Insight, Normal Concentration - Medications Active Medications: Active Medications Generic Name Dose Route Start Last Admin Trade Name Freq PRN Reason Stop Dose Admin Sodium Chloride 1,000 mls @ 200 mls/hr 06/29/16 19:00 06/30/16 05:14 Sodium Chloride 0.9% IV 200 mls/hr .Q5H IAIN Administration Meropenem 1g/NS 100mL IVPB 100 mls @ 100 mls/hr 06/30/16 06:30 06/30/16 06:43 Meropenem 1g/Ns 100ml Ivpb IVPB 07/07/16 06:31 100 mls/hr Q12 IAIN Administration Protocol Linezolid 300 mls @ 200 mls/hr 06/30/16 06:30 06/30/16 06:50 Zyvox 600mg/300ml D5w IVPB 07/07/16 06:31 200 mls/hr Q12 IAIN Administration Protocol Insulin Human Lispro 0 units 06/30/16 11:30 Humalog Low SC ACHS IAIN Protocol Nystatin 0 gm 06/30/16 05:00 06/30/16 04:46 Nystop Topical Powder TOP 1 applic BID IAIN Administration Ondansetron HCl 4 mg 06/29/16 22:58 Zofran Inj IVP Q6H PRN Nausea/Vomiting Pantoprazole Sodium 40 mg 06/30/16 10:00 06/30/16 09:01 Protonix Inj IVP 40 mg DAILY IAIN Administration - Patient Studies Lab Studies: Lab Studies 06/30/16 06/30/16 06/29/16 Range/Units 05:40 00:15 21:55 WBC 20.7 H D (4.5-11.0) 10^3/ul RBC 4.02 (3.5-6.1) 10^6/uL Hgb 12.8 (12.0-16.0) gm/dL Hct 37.1 (36.0-48.0) % MCV 92.3 (80.0-105.0) fL MCH 31.8 (25.0-35.0) pg MCHC 34.5 (31.0-37.0) g/dl RDW 14.4 (11.5-14.5) % Plt Count 311 (120.0-450.0) 10^3/uL MPV 9.8 (7.0-11.0) fl Neutrophils % (Manual) 82 H (50.0-70.0) % Band Neutrophils % 4 H (0-2) % Lymphocytes % (Manual) 8 L (22.0-35.0) % Monocytes % (Manual) 6 (1.0-6.0) % Platelet Evaluation Normal (NORMAL) pO2 108 H (30-55) mm/Hg VBG pH 7.40 (7.32-7.43) VBG pCO2 36.0 L (40-60) VBG HCO3 22.3 (21-28) mmol/l VBG Total CO2 23.4 (22-28) mmol.L VBG O2 Sat (Calc) 98.2 H (40-65) % VBG Base Excess -2.0 L (0.0-2.0) mmol/L VBG Potassium 4.7 (3.6-5.2) mmol/L Glucose 211 H (65-105) mg/dl Lactate 1.4 (0.7-2.1) mmol/L FiO2 21.0 % Sodium 132 135 133.0 (132-148) mmol/L Potassium 4.6 4.8 (3.6-5.0) mmol/L Chloride 100 102 104.0 (98-107) mmol/L Carbon Dioxide 20 L 17 L (21-33) mmol/L Anion Gap 17 21 H (10-20) BUN 47 H 47 H (7-21) mg/dL Creatinine 2.7 H 2.5 H (0.5-1.4) mg/dL Est GFR ( Amer) 21 23 Est GFR (Non-Af Amer) 17 19 Random Glucose 185 H 210 H (70-110) mg/dL Calcium 7.3 L 7.9 L (8.4-10.5) mg/dL Total Bilirubin 1.0 1.0 (0.2-1.3) mg/dL AST 1022 H 1266 H (15-39) U/L ALT 346 H 348 H (7-56) U/L Alkaline Phosphatase 92 102 (38-133) U/L Total Creatine Kinase 54418 H 37789 H (35-230) U/L CK-MB (CK-2) 316 H (0.0-3.6) NG/ML CK-MB (CK-2) % 0.6 L (2.5-3.0) % Total Protein 6.6 7.0 (5.8-8.3) g/dL Albumin 2.9 L 3.2 (3.0-4.8) g/dL Globulin 3.6 3.8 gm/dL Albumin/Globulin Ratio 0.8 L 0.8 L (1.1-1.8) Venous Blood Potassium 4.7 (3.6-5.2) mmol/L Laboratory Results - last 24 hr 06/29/16 06/30/16 06/30/16 21:55 00:15 05:40 WBC 20.7 H D RBC 4.02 Hgb 12.8 Hct 37.1 MCV 92.3 MCH 31.8 MCHC 34.5 RDW 14.4 Plt Count 311 MPV 9.8 Neutrophils % (Manual) 82 H Band Neutrophils % 4 H Lymphocytes % (Manual) 8 L Monocytes % (Manual) 6 Platelet Evaluation Normal pO2 108 H VBG pH 7.40 VBG pCO2 36.0 L VBG HCO3 22.3 VBG Total CO2 23.4 VBG O2 Sat (Calc) 98.2 H VBG Base Excess -2.0 L VBG Potassium 4.7 Sodium 133.0 135 132 Chloride 104.0 102 100 Glucose 211 H Lactate 1.4 FiO2 21.0 Potassium 4.8 4.6 Carbon Dioxide 17 L 20 L Anion Gap 21 H 17 BUN 47 H 47 H Creatinine 2.5 H 2.7 H Est GFR ( Amer) 23 21 Est GFR (Non-Af Amer) 19 17 Random Glucose 210 H 185 H Calcium 7.9 L 7.3 L Total Bilirubin 1.0 1.0 AST 1266 H 1022 H ALT 348 H 346 H Alkaline Phosphatase 102 92 Total Creatine Kinase 30436 H 89830 H CK-MB (CK-2) 316 H CK-MB (CK-2) % 0.6 L Total Protein 7.0 6.6 Albumin 3.2 2.9 L Globulin 3.8 3.6 Albumin/Globulin Ratio 0.8 L 0.8 L Venous Blood Potassium 4.7 Fingerstick Blood Sugar Results: 261 Assessment/Plan - Assessment and Plan (Free Text) Plan: 75 y/o F with PMH of CHF, DM, TIA, and hypothyroidism presents with severe rhabdomyolysis complicated by acute kidney injury and transaminitis along with acute cholecystitis and right arm paralysis. Will continue aggressive IVF and monitor urine output, as patient had minimal output overnight. Transaminitis likely secondary to rhabdomyolysis and will continue trend. Pt underwent abdominal US which showed 5 x 6 x 5 cm lesion at the gallbladder fundus, which is suspicious for neoplasm vs sludge. Abdomen/Pelvis CT showed cholecystitis and findings consistent with abdominal US. MRCP and HIDA scans are ordered. Right upper extremity CT did not show any mass or hematoma involving the brachial plexus, although there was a soft tissue density along plexus Right upper extremity sensation and weakness have not improved, will consult Dr. Devries for further management. Neuro: AAOx3 Right arm paralysis, not improved Supportive therapy for right arm Dr. Devries consulted Cardio: Hemodynamically stable Goal MAP >65 Pulm: Maintain O2 sat >90% NC @ 2L Monitor for respiratory distress GI: NPO NS @ 200 cc/hr HIDA and MRCP ordered to evaluate acute cholecystitis Surgery, Dr. Elias following, no intervention at this time GI following, Dr. Duncan Endo: Maintain euglycemia, target glucose between 140-180 ISS Nephro: DIMITRY, creatinine elevated from previous day NS @ 200 cc/hr Monitor urine output Dr. Ron consulted Heme/ID: Afebrile, leukocytosis improving Continue Merrem and Linezolid Gallbladder as possible source of sepsis at this time PPX: Protonix Zofran SCDs Seen, reviewed, and discussed with attending Daina, PGY-1 <Delvin Bains - Last Filed: 07/01/16 08:25> CCU Objective - Vital Signs / Intake & Output Intake and Output (Last 8hrs): Intake & Output 06/30/16 07/01/16 07/01/16 22:59 06:59 14:59 Intake Total 2200 Output Total 50 Balance 2150 Intake: IV 2000 Left Hand 2000 Oral 0 Tube Feeding 0 TPN/PPN 0 Blood Product 0 Lipid 0 Albumin 0 Other 200 Output: Urine 50 Urethral (Briones) 50 Stool 0 Urine/Stool Mix 0 Emesis 0 Oral Regurgitation 0 Other 0 Other: Voiding Method Indwelling Catheter Indwelling Catheter # Voids Urethral (Briones) 0 # Bowel Movements 3 - Medications Active Medications: Active Medications Generic Name Dose Route Start Last Admin Trade Name Freq PRN Reason Stop Dose Admin Sodium Chloride 1,000 mls @ 200 mls/hr 06/29/16 19:00 06/30/16 22:28 Sodium Chloride 0.9% IV 200 mls/hr .Q5H IAIN Administration Meropenem 1g/NS 100mL IVPB 100 mls @ 100 mls/hr 06/30/16 06:30 06/30/16 22:28 Meropenem 1g/Ns 100ml Ivpb IVPB 07/07/16 06:31 100 mls/hr Q12 IAIN Administration Protocol Linezolid 300 mls @ 200 mls/hr 06/30/16 06:30 06/30/16 22:29 Zyvox 600mg/300ml D5w IVPB 07/07/16 06:31 200 mls/hr Q12 IAIN Administration Protocol Insulin Human Lispro 0 units 06/30/16 11:30 07/01/16 07:54 Humalog Low SC Not Given ACHS IAIN Protocol Levothyroxine Sodium 75 mcg 07/01/16 07:30 Synthroid PO ACB IAIN Nystatin 0 gm 06/30/16 05:00 06/30/16 04:46 Nystop Topical Powder TOP 1 applic BID IAIN Administration Ondansetron HCl 4 mg 06/29/16 22:58 06/30/16 12:15 Zofran Inj IVP 4 mg Q6H PRN Administration Nausea/Vomiting Pantoprazole Sodium 40 mg 06/30/16 10:00 06/30/16 09:01 Protonix Inj IVP 40 mg DAILY IAIN Administration - Patient Studies Lab Studies: Microbiology Studies 06/30/16 05:30 C. difficile Antigen & Toxin A,B (M - Final Stool Lab Studies 07/01/16 07/01/16 06/30/16 Range/Units 04:30 04:30 22:20 WBC 23.9 H (4.5-11.0) 10^3/ul RBC 3.34 L (3.5-6.1) 10^6/uL Hgb 10.5 L (12.0-16.0) gm/dL Hct 31.0 L (36.0-48.0) % MCV 92.8 (80.0-105.0) fL MCH 31.4 (25.0-35.0) pg MCHC 33.9 (31.0-37.0) g/dl RDW 14.7 H (11.5-14.5) % Plt Count 292 (120.0-450.0) 10^3/uL MPV 10.4 (7.0-11.0) fl Gran % 88.8 H (50.0-68.0) % Lymph % (Auto) 4.9 L (22.0-35.0) % [place] % (Auto) 6.3 H (1.0-6.0) % Eos % (Auto) 0.0 L (1.5-5.0) % Baso % (Auto) 0.0 (0.0-3.0) % Gran # 21.21 H (1.4-6.5) Lymph # 1.2 (1.2-3.4) [place] # 1.5 H (0.1-0.6) Eos # 0.0 (0.0-0.7) Baso # 0.01 (0.0-2.0) K/mm3 Neutrophils % (Manual) (50.0-70.0) % Lymphocytes % (Manual) (22.0-35.0) % Monocytes % (Manual) (1.0-6.0) % Eosinophils % (Manual) (0.0-3.0) % Platelet Evaluation (NORMAL) Sodium 135 134 (132-148) mmol/L Potassium 4.6 4.5 (3.6-5.0) mmol/L Chloride 104 103 (98-107) mmol/L Carbon Dioxide 19 L 20 L (21-33) mmol/L Anion Gap 17 16 (10-20) BUN 52 H 53 H (7-21) mg/dL Creatinine 3.5 H 3.5 H (0.5-1.4) mg/dL Est GFR ( Amer) 15 15 Est GFR (Non-Af Amer) 13 13 POC Glucose (mg/dL) (65-110) mg/dL Random Glucose 121 H 123 H (70-110) mg/dL Calcium 6.8 L* 6.7 L* (8.4-10.5) mg/dL Total Bilirubin 0.7 0.7 (0.2-1.3) mg/dL AST 595 H 660 H (15-39) U/L ALT 241 H 267 H (7-56) U/L Alkaline Phosphatase 86 81 (38-133) U/L Total Creatine Kinase 52383 H 60824 H (35-230) U/L CK-MB (CK-2) 52.8 H (0.0-3.6) NG/ML CK-MB (CK-2) % 0.3 L (2.5-3.0) % Total Protein 5.8 5.7 L (5.8-8.3) g/dL Albumin 2.5 L 2.4 L (3.0-4.8) g/dL Globulin 3.3 3.3 gm/dL Albumin/Globulin Ratio 0.8 L 0.7 L (1.1-1.8) 06/30/16 06/30/16 06/30/16 Range/Units 22:20 21:20 17:00 WBC 22.3 H (4.5-11.0) 10^3/ul RBC 3.38 L (3.5-6.1) 10^6/uL Hgb 10.8 L (12.0-16.0) gm/dL Hct 31.3 L (36.0-48.0) % MCV 92.6 (80.0-105.0) fL MCH 32.0 (25.0-35.0) pg MCHC 34.5 (31.0-37.0) g/dl RDW 14.5 (11.5-14.5) % Plt Count 279 (120.0-450.0) 10^3/uL MPV 9.9 (7.0-11.0) fl Gran % (50.0-68.0) % Lymph % (Auto) (22.0-35.0) % [place] % (Auto) (1.0-6.0) % Eos % (Auto) (1.5-5.0) % Baso % (Auto) (0.0-3.0) % Gran # (1.4-6.5) Lymph # (1.2-3.4) [place] # (0.1-0.6) Eos # (0.0-0.7) Baso # (0.0-2.0) K/mm3 Neutrophils % (Manual) 89 H (50.0-70.0) % Lymphocytes % (Manual) 6 L (22.0-35.0) % Monocytes % (Manual) 4 (1.0-6.0) % Eosinophils % (Manual) 1 (0.0-3.0) % Platelet Evaluation (NORMAL) Sodium 133 (132-148) mmol/L Potassium 4.8 (3.6-5.0) mmol/L Chloride 100 (98-107) mmol/L Carbon Dioxide 21 (21-33) mmol/L Anion Gap 17 (10-20) BUN 52 H (7-21) mg/dL Creatinine 3.3 H (0.5-1.4) mg/dL Est GFR ( Amer) 16 Est GFR (Non-Af Amer) 14 POC Glucose (mg/dL) 131 H (65-110) mg/dL Random Glucose 150 H (70-110) mg/dL Calcium 7.2 L (8.4-10.5) mg/dL Total Bilirubin 0.9 (0.2-1.3) mg/dL AST 740 H (15-39) U/L ALT 305 H (7-56) U/L Alkaline Phosphatase 88 (38-133) U/L Total Creatine Kinase 43467 H (35-230) U/L CK-MB (CK-2) 79.3 H (0.0-3.6) NG/ML CK-MB (CK-2) % 0.3 L (2.5-3.0) % Total Protein 6.3 (5.8-8.3) g/dL Albumin 2.8 L (3.0-4.8) g/dL Globulin 3.5 gm/dL Albumin/Globulin Ratio 0.8 L (1.1-1.8) 06/30/16 06/30/16 06/30/16 Range/Units 17:00 16:06 11:19 WBC 20.1 H (4.5-11.0) 10^3/ul RBC 3.73 (3.5-6.1) 10^6/uL Hgb 12.1 (12.0-16.0) gm/dL Hct 34.2 L (36.0-48.0) % MCV 91.7 (80.0-105.0) fL MCH 32.4 (25.0-35.0) pg MCHC 35.4 (31.0-37.0) g/dl RDW 15.5 H (11.5-14.5) % Plt Count 356 (120.0-450.0) 10^3/uL MPV 10.8 (7.0-11.0) fl Gran % (50.0-68.0) % Lymph % (Auto) (22.0-35.0) % [place] % (Auto) (1.0-6.0) % Eos % (Auto) (1.5-5.0) % Baso % (Auto) (0.0-3.0) % Gran # (1.4-6.5) Lymph # (1.2-3.4) [place] # (0.1-0.6) Eos # (0.0-0.7) Baso # (0.0-2.0) K/mm3 Neutrophils % (Manual) 85 H (50.0-70.0) % Lymphocytes % (Manual) 7 L (22.0-35.0) % Monocytes % (Manual) 7 H (1.0-6.0) % Eosinophils % (Manual) 1 (0.0-3.0) % Platelet Evaluation Normal (NORMAL) Sodium (132-148) mmol/L Potassium (3.6-5.0) mmol/L Chloride (98-107) mmol/L Carbon Dioxide (21-33) mmol/L Anion Gap (10-20) BUN (7-21) mg/dL Creatinine (0.5-1.4) mg/dL Est GFR ( Amer) Est GFR (Non-Af Amer) POC Glucose (mg/dL) 165 H 187 H (65-110) mg/dL Random Glucose (70-110) mg/dL Calcium (8.4-10.5) mg/dL Total Bilirubin (0.2-1.3) mg/dL AST (15-39) U/L ALT (7-56) U/L Alkaline Phosphatase (38-133) U/L Total Creatine Kinase (35-230) U/L CK-MB (CK-2) (0.0-3.6) NG/ML CK-MB (CK-2) % (2.5-3.0) % Total Protein (5.8-8.3) g/dL Albumin (3.0-4.8) g/dL Globulin gm/dL Albumin/Globulin Ratio (1.1-1.8) 06/30/16 Range/Units 05:40 WBC (4.5-11.0) 10^3/ul RBC (3.5-6.1) 10^6/uL Hgb (12.0-16.0) gm/dL Hct (36.0-48.0) % MCV (80.0-105.0) fL MCH (25.0-35.0) pg MCHC (31.0-37.0) g/dl RDW (11.5-14.5) % Plt Count (120.0-450.0) 10^3/uL MPV (7.0-11.0) fl Gran % (50.0-68.0) % Lymph % (Auto) (22.0-35.0) % [place] % (Auto) (1.0-6.0) % Eos % (Auto) (1.5-5.0) % Baso % (Auto) (0.0-3.0) % Gran # (1.4-6.5) Lymph # (1.2-3.4) [place] # (0.1-0.6) Eos # (0.0-0.7) Baso # (0.0-2.0) K/mm3 Neutrophils % (Manual) (50.0-70.0) % Lymphocytes % (Manual) (22.0-35.0) % Monocytes % (Manual) (1.0-6.0) % Eosinophils % (Manual) (0.0-3.0) % Platelet Evaluation (NORMAL) Sodium (132-148) mmol/L Potassium (3.6-5.0) mmol/L Chloride (98-107) mmol/L Carbon Dioxide (21-33) mmol/L Anion Gap (10-20) BUN (7-21) mg/dL Creatinine (0.5-1.4) mg/dL Est GFR ( Amer) Est GFR (Non-Af Amer) POC Glucose (mg/dL) (65-110) mg/dL Random Glucose (70-110) mg/dL Calcium (8.4-10.5) mg/dL Total Bilirubin (0.2-1.3) mg/dL AST (15-39) U/L ALT (7-56) U/L Alkaline Phosphatase (38-133) U/L Total Creatine Kinase 08247 H (35-230) U/L CK-MB (CK-2) 201 H (0.0-3.6) NG/ML CK-MB (CK-2) % 0.5 L (2.5-3.0) % Total Protein (5.8-8.3) g/dL Albumin (3.0-4.8) g/dL Globulin gm/dL Albumin/Globulin Ratio (1.1-1.8) Laboratory Results - last 24 hr 06/30/16 06/30/16 06/30/16 05:40 11:19 16:06 WBC RBC Hgb Hct MCV MCH MCHC RDW Plt Count MPV Gran % Lymph % (Auto) [place] % (Auto) Eos % (Auto) Baso % (Auto) Gran # Lymph # [place] # Eos # Baso # Neutrophils % (Manual) Lymphocytes % (Manual) Monocytes % (Manual) Eosinophils % (Manual) Platelet Evaluation Sodium Potassium Chloride Carbon Dioxide Anion Gap BUN Creatinine Est GFR ( Amer) Est GFR (Non-Af Amer) POC Glucose (mg/dL) 187 H 165 H Random Glucose Calcium Total Bilirubin AST ALT Alkaline Phosphatase Total Creatine Kinase 49965 H CK-MB (CK-2) 201 H CK-MB (CK-2) % 0.5 L Total Protein Albumin Globulin Albumin/Globulin Ratio 06/30/16 06/30/16 06/30/16 17:00 17:00 21:20 WBC 20.1 H RBC 3.73 Hgb 12.1 Hct 34.2 L MCV 91.7 MCH 32.4 MCHC 35.4 RDW 15.5 H Plt Count 356 MPV 10.8 Gran % Lymph % (Auto) [place] % (Auto) Eos % (Auto) Baso % (Auto) Gran # Lymph # [place] # Eos # Baso # Neutrophils % (Manual) 85 H Lymphocytes % (Manual) 7 L Monocytes % (Manual) 7 H Eosinophils % (Manual) 1 Platelet Evaluation Normal Sodium 133 Potassium 4.8 Chloride 100 Carbon Dioxide 21 Anion Gap 17 BUN 52 H Creatinine 3.3 H Est GFR ( Amer) 16 Est GFR (Non-Af Amer) 14 POC Glucose (mg/dL) 131 H Random Glucose 150 H Calcium 7.2 L Total Bilirubin 0.9 AST 740 H ALT 305 H Alkaline Phosphatase 88 Total Creatine Kinase 20336 H CK-MB (CK-2) 79.3 H CK-MB (CK-2) % 0.3 L Total Protein 6.3 Albumin 2.8 L Globulin 3.5 Albumin/Globulin Ratio 0.8 L 06/30/16 06/30/16 07/01/16 22:20 22:20 04:30 WBC 22.3 H RBC 3.38 L Hgb 10.8 L Hct 31.3 L MCV 92.6 MCH 32.0 MCHC 34.5 RDW 14.5 Plt Count 279 MPV 9.9 Gran % Lymph % (Auto) [place] % (Auto) Eos % (Auto) Baso % (Auto) Gran # Lymph # [place] # Eos # Baso # Neutrophils % (Manual) 89 H Lymphocytes % (Manual) 6 L Monocytes % (Manual) 4 Eosinophils % (Manual) 1 Platelet Evaluation Sodium 134 135 Potassium 4.5 4.6 Chloride 103 104 Carbon Dioxide 20 L 19 L Anion Gap 16 17 BUN 53 H 52 H Creatinine 3.5 H 3.5 H Est GFR ( Amer) 15 15 Est GFR (Non-Af Amer) 13 13 POC Glucose (mg/dL) Random Glucose 123 H 121 H Calcium 6.7 L* 6.8 L* Total Bilirubin 0.7 0.7 AST 660 H 595 H ALT 267 H 241 H Alkaline Phosphatase 81 86 Total Creatine Kinase 78199 H 03048 H CK-MB (CK-2) 52.8 H CK-MB (CK-2) % 0.3 L Total Protein 5.7 L 5.8 Albumin 2.4 L 2.5 L Globulin 3.3 3.3 Albumin/Globulin Ratio 0.7 L 0.8 L 07/01/16 04:30 WBC 23.9 H RBC 3.34 L Hgb 10.5 L Hct 31.0 L MCV 92.8 MCH 31.4 MCHC 33.9 RDW 14.7 H Plt Count 292 MPV 10.4 Gran % 88.8 H Lymph % (Auto) 4.9 L [place] % (Auto) 6.3 H Eos % (Auto) 0.0 L Baso % (Auto) 0.0 Gran # 21.21 H Lymph # 1.2 [place] # 1.5 H Eos # 0.0 Baso # 0.01 Neutrophils % (Manual) Lymphocytes % (Manual) Monocytes % (Manual) Eosinophils % (Manual) Platelet Evaluation Sodium Potassium Chloride Carbon Dioxide Anion Gap BUN Creatinine Est GFR ( Amer) Est GFR (Non-Af Amer) POC Glucose (mg/dL) Random Glucose Calcium Total Bilirubin AST ALT Alkaline Phosphatase Total Creatine Kinase CK-MB (CK-2) CK-MB (CK-2) % Total Protein Albumin Globulin Albumin/Globulin Ratio Addendum Addendum: 07/01/16 08:25 Patient was seen and examined at bedside with Dr. Cortez. Please see Dr. Bains note
--- NOTE | 2016-06-30 11:24 | CP.PCM.HP ---
<Luis Conde - Last Filed: 06/30/16 15:07> History of Present Illness - History of Present Illness History of Present Illness: HPI: Patient is a 75yo female with past medical history of CHF, TIA, DM type 2, hypothyroidism, obesity, CBD stones and RLE DVT presents s/p fall at home. Patient reported that prior to her fall she had been having nausea and bilious emesis. Patient stated that she was exiting her bathroom after having an episode of emesis and felt lightheaded and subsequently fell to the floor landing on her right side. She states that she tried to get up but felt too weak and ended up laying on the floor for over 13 hours. Patient states that she was found by her neighbor who called EMS. She reported that her bilious emesis was associated with decreased appetite but denied abdominal pain, fever, chills, cough, diarrhea, constipation, chest pain, palpitations, SOB, dysuria, frequency, urgency. In the ED, patient had cervical, maxillofacial, shoulder and hip x-rays which were negative for acute fractures. A Head CT revealed no acute intracranial abnormalities. Initial Labs were notable for a WBC count of 37.8, Lactate 2.2, Potassium 5.1, Chloride 94, BUN 42, Creatinine 2.5, Total bili 1.6, AST 1038, ALT 285, LDH 2310, [place] [address]. Patient was subsequently admitted to the ICU for further evaluation and treatment. 12 point ROS as per HPI, otherwise negative PMHx: CHF, DVT, TIA, HTN, DM2, HLD, Hypothyroidism, Chronic lower extremity cellulitis, arthritis, RLE DVT PSHx: Hysterectomy, B/L knee replacements Allergies: NKDA Medications: Reviewed and as per chart Social Hx: Former tobacco user (quit 30 yrs ago; use to smoke 1ppd for ~30yrs); Social Alcohol use; Denies illicit drug use; Lives alone Present on Admission - Present on Admission Any Indicators Present on Admission: No Past Patient History - Infectious Disease Hx of Infectious Diseases: None - Past Medical History & Family History Past Medical History?: Yes Past Family History: Reviewed and not pertinent - Past Social History Smoking Status: Former Smoker (>30 pack years 1 PPD, quit when 43 y/o) Alcohol: Social Drugs: Denies Home Situation {Lives}: Alone - CARDIAC Hx Cardiac Disorders: No Hx Hypercholesterolemia: Yes Hx Hypertension: Yes Hx Pacemaker: No - NEUROLOGICAL Hx Paralysis: No Hx Transient Ischemic Attacks (TIA): Yes - ENDOCRINE/METABOLIC Hx Endocrine Disorders: Yes Hx Diabetes Mellitus Type 2: Yes Hx Hypothyroidism: Yes - HEMATOLOGICAL/ONCOLOGICAL Hx Blood Disorders: Yes Hx Blood Transfusions: Yes Hx Blood Transfusion Reaction: No Other/Comment: DVT - INTEGUMENTARY Hx Cellulitis: Yes (BL LE) Other/Comment: cellulitis bilateral lower legs - MUSCULOSKELETAL/RHEUMATOLOGICAL Hx Musculoskeletal Disorders: Yes Hx Degenerative Joint Disease: Yes - GASTROINTESTINAL Hx Gastrointestinal Disorders: Yes (GI BLEED) - GENITOURINARY/GYNECOLOGICAL Hx Genitourinary Disorders: No Hx Reproductive Disorders: No - PSYCHIATRIC Hx Psychophysiologic Disorder: No Hx Emotional Abuse: No Hx Physical Abuse: No Hx Substance Use: No - SURGICAL HISTORY Hx Surgeries: Yes Hx Hysterectomy: Yes (1983) Hx Orthopedic Surgery: Yes (bilateral knee replacements) Other/Comment: right knee replacement 2012, left knee replacement 2003 - ANESTHESIA Hx Anesthesia Reactions: No Hx Malignant Hyperthermia: No Meds Allergies/Adverse Reactions: Allergies Allergy/AdvReac Type Severity Reaction Status Date / Time No Known Allergies Allergy Verified 06/29/16 12:08 Physical Exam - Constitutional Appears: No Acute Distress, Chronically Ill - Head Exam Head Exam: ATRAUMATIC, NORMAL INSPECTION, NORMOCEPHALIC - Eye Exam Eye Exam: EOMI, PERRL - Respiratory Exam Respiratory Exam: Decreased Breath Sounds. absent: Rales, Rhonchi, Wheezes - Cardiovascular Exam Cardiovascular Exam: RRR, +S1, +S2. absent: Diastolic murmur, Gallop, Rubs, Systolic Murmur - GI/Abdominal Exam GI & Abdominal Exam: Distended, Normal Bowel Sounds, Soft. absent: Firm, Guarding, Rebound, Tenderness - Extremities Exam Extremities exam: Positive for: pedal edema. Negative for: calf tenderness, tenderness Additional comments: RUE muscle strength 0/5; RUE sensation not intact to light or deep palpation Bilateral upper extremity radial pulses 2/4 Bilateral lower extremity muscle strength 5/5 - Neurological Exam Neurological exam: Alert, Oriented x3 - Psychiatric Exam Psychiatric exam: Normal Affect, Normal Mood - Skin Skin Exam: Dry, Intact, Warm Additional comments: erythema of left lower extremity Results - Vital Signs Recent Vital Signs: Last Vital Signs Temp 99.9 F H 06/30/16 04:00 Pulse 118 H 06/30/16 07:00 Resp 25 H 04/24/17 07:00 BP 94/56 L 06/30/16 07:00 Pulse Ox 95 06/30/16 07:00 - Labs Result Diagrams: 06/30/16 05:40 06/30/16 05:40 Labs: Laboratory Results - last 24 hr 06/29/16 06/30/16 06/30/16 21:55 00:15 05:40 WBC 20.7 H D RBC 4.02 Hgb 12.8 Hct 37.1 MCV 92.3 MCH 31.8 MCHC 34.5 RDW 14.4 Plt Count 311 MPV 9.8 Neutrophils % (Manual) 82 H Band Neutrophils % 4 H Lymphocytes % (Manual) 8 L Monocytes % (Manual) 6 Platelet Evaluation Normal pO2 108 H VBG pH 7.40 VBG pCO2 36.0 L VBG HCO3 22.3 VBG Total CO2 23.4 VBG O2 Sat (Calc) 98.2 H VBG Base Excess -2.0 L VBG Potassium 4.7 Sodium 133.0 135 132 Chloride 104.0 102 100 Glucose 211 H Lactate 1.4 FiO2 21.0 Potassium 4.8 4.6 Carbon Dioxide 17 L 20 L Anion Gap 21 H 17 BUN 47 H 47 H Creatinine 2.5 H 2.7 H Est GFR ( Amer) 23 21 Est GFR (Non-Af Amer) 19 17 Random Glucose 210 H 185 H Calcium 7.9 L 7.3 L Total Bilirubin 1.0 1.0 AST 1266 H 1022 H ALT 348 H 346 H Alkaline Phosphatase 102 92 Total Creatine Kinase 85286 H [address]751 H CK-MB (CK-2) 316 H 201 H CK-MB (CK-2) % 0.6 L 0.5 L Total Protein 7.0 6.6 Albumin 3.2 2.9 L Globulin 3.8 3.6 Albumin/Globulin Ratio 0.8 L 0.8 L Venous Blood Potassium 4.7 Assessment & Plan - Assessment and Plan (Free Text) Assessment: 75yo Female with history of CHF, DM2, TIA, hypothyroidism, chronic LE edema, history of DVT and CBD stones admitted to the ICU for rhabdomyolysis, Acute Kidney injury, right arm paralysis and likely acute cholecystitis Plan: 1. Rhabdomyolysis -Patient received 4 liters of fluid in the ED -Continue with aggressive IVF hydration with NS @ 200cc/hr -Monitor I's and O's -Daily weight -Nephrology consulted - Dr. Ron -Will continue to monitor renal function 2. Right upper extremity paralysis -CT RUE reviewed; Did not reveal any mass or hematoma involving the brachial plexus, however soft tissue density along plexus possible -RUE sensation/motor function without improvement since admission -Hand surgeon consulted - Dr. Devries 3. CBD dilatation -MRCP and HIDA scans pending -Abdominal US reviewed; CBD measures 8.6mm, cholelithiasis, gallbladder lesion -CT abd/pelvis reviewed -Continue meropenem and linezolid as per ID recommendations -ID consulted - Dr. Banks -Surgery consulted - Dr. Elias -GI consulted - Dr. Duncan 4. s/p fall -Cervical, maxillofacial, shoulder and hip/pelvis x-rays negative -CT Head negative for acute intracranial pathology 5. DM type 2 -Humalog low dose ISS -Patient currently NPO -Fingersticks ACHS 6. GI/DVT Prophylaxis -Protonix/SCD's Patient seen and case discussed with attending, Dr. Porter - Date & Time Date: 06/30/16 Time: 11:42 <Mark Porter - Last Filed: 08/08/16 08:43> Results - Vital Signs Recent Vital Signs: Last Vital Signs Temp 98.4 F 07/13/16 08:15 Pulse 82 07/13/16 08:15 Resp 22 07/13/16 08:15 BP 147/58 L 07/13/16 08:15 Pulse Ox 94 L 07/13/16 08:15 - Labs Result Diagrams: 07/13/16 06:40 07/13/16 06:40 Attending/Attestation - Attestation I have personally seen and examined this patient.: Yes I have fully participated in the care of the patient.: Yes I have reviewed all pertinent clinical information: Yes Notes (Text): 08/08/16 08:43 Medical record note made by the resident after discussion with my direction and input after the patient was personally seen and examined by me. I have reviewed the chart and agree that the record reflects my personal performance of history, physical, data review and course for the patient that I have planned.
--- NOTE | 2016-06-30 11:43 | CON ---
DATE: 06/30/2016 The patient was seen in the ICU as a dysfunction of the right arm, probably from lying on it, has robert vated enzymes also probably from necrosis and rhabdomyolysis of the right arm. The question is why d id she lie on it for 13 hours, and that is unclear. She said she had abdominal discomfort without pa in, without nausea, vomiting, diarrhea, or constipation. The patient is known to me from years ago. A dilated common duct was identified. There was no stric ture or stenosis, but there was some sludge. The patient had a stent that had been removed. CAT scan this time - the duct is about 10 mm. The gallbladder was very distended with inflammation a round it, but a thin-walled gallbladder. There is probably some sludge in it. Liver functions are elevated. Her white count is 20. Coags: PTT of 46. BUN 47, creatinine 2.7. B nathalie was 1.6, down to 1. SGOT is elevated. Alkaline phos is normal. Creatinine kinase is 52,000. A mylase is normal. An ultrasound was recently done. Sludge in the gallbladder is noted, biliary dilation, cholelithiasi s. HIDA scan and an MRCP are ordered. Discussed with Dr. Duncan. My feeling is that this is increased pressure in the biliary tree, plus or minus sepsis. There is sl udge in the gallbladder, maybe a small stone. She has had surgery offered, a cholecystectomy years a go, and she refused. Her abdomen is soft, nontender. She is very appropriate - remembers me from ye ars ago. We will treat conservatively for now. However, I think surgical intervention might eventually be ap propriate. The real question is whether or not to place a biliary stent, but at the moment, I favor pending further studies. Miguel Ángel Elias MD cc: [id number] TT: 06/30/2016 11:42:26 Confirmation # [id number] Dictation # [id number] jesus
[2016-06-30] MEDS: Insulin Lispro (humaLOG) LOW Coverage SC SCH ×3 (11:50→21:20)
--- NOTE | 2016-06-30 12:59 | CP.PCM.CON ---
History of Present Illness - History of Present Illness History of Present Illness: 75 yo F w/ pmh of htn, CHF, DM, hypothyroidism, cholelithiasis and RLE DVT, presented after fall upon being found down on the floor by her neighbor; nephrology service being consulted for acute renal failure; Patient reports being in her usual state of health until about 2-3 days prior to presentation during which time she started having nausea and vomiting bilious material; denies copious vomiting and describes it more as "spit-up"; however, patient reports getting very weak and lightheaded which led to her falling down; denies any diarrhea during this time or change in urination; patient found lying down over R arm and estimated to be down for about 13 hours ; she reports having been too weak to get up to call for help; Patient currently reports no feeling in her R arm; denies being in any pain; denies any shortness of breath; Baseline functional status is being independent in ADL; lower extremity edema is chronic for which she is on diuretics twice daily; however, she denies any dysnpnea on exertion; Review of Systems - Constitutional Constitutional: As Per HPI Additional comments: Previously with good appetite, no weight change; - EENT Eyes: absent: Blurred Vision, Change in Vision Ears: absent: Decreased Hearing, Tinnitus, Dizziness Nose/Mouth/Throat: absent: Nasal Discharge, Sinus Pain, Sore Throat - Cardiovascular Cardiovascular: Edema. absent: Dyspnea on Exertion - Respiratory Respiratory: absent: Dyspnea on Exertion - Gastrointestinal Gastrointestinal: As Per HPI. absent: Abdominal Pain - Genitourinary Genitourinary: absent: Change in Urinary Stream, Difficulty Urinating, Dysuria, Hematuria - Musculoskeletal Musculoskeletal: absent: Arthralgias, Back Pain - Integumentary Integumentary: absent: Pruritus, Rash - Neurological Neurological: absent: Dizziness, Headaches - Psychiatric Psychiatric: absent: Anxiety, Depression - Hematologic/Lymphatic Hematologic: Easy Bruising. absent: Easy Bleeding Past Patient History - Infectious Disease Hx of Infectious Diseases: None - Past Medical History & Family History Past Medical History?: Yes Past Family History: Reviewed and not pertinent - Past Social History Smoking Status: Former Smoker (>30 pack years 1 PPD, quit when 43 y/o) Alcohol: Social Drugs: Denies Home Situation {Lives}: Alone - CARDIAC Hx Cardiac Disorders: No Hx Hypercholesterolemia: Yes Hx Hypertension: Yes Hx Pacemaker: No - NEUROLOGICAL Hx Paralysis: No Hx Transient Ischemic Attacks (TIA): Yes - ENDOCRINE/METABOLIC Hx Endocrine Disorders: Yes Hx Diabetes Mellitus Type 2: Yes Hx Hypothyroidism: Yes - HEMATOLOGICAL/ONCOLOGICAL Hx Blood Disorders: Yes Hx Blood Transfusions: Yes Hx Blood Transfusion Reaction: No Other/Comment: DVT - INTEGUMENTARY Hx Cellulitis: Yes (BL LE) Other/Comment: cellulitis bilateral lower legs - MUSCULOSKELETAL/RHEUMATOLOGICAL Hx Musculoskeletal Disorders: Yes Hx Degenerative Joint Disease: Yes - GASTROINTESTINAL Hx Gastrointestinal Disorders: Yes (GI BLEED) - GENITOURINARY/GYNECOLOGICAL Hx Genitourinary Disorders: No Hx Reproductive Disorders: No - PSYCHIATRIC Hx Psychophysiologic Disorder: No Hx Emotional Abuse: No Hx Physical Abuse: No Hx Substance Use: No - SURGICAL HISTORY Hx Surgeries: Yes Hx Hysterectomy: Yes (1983) Hx Orthopedic Surgery: Yes (bilateral knee replacements) Other/Comment: right knee replacement 2012, left knee replacement 2003 - ANESTHESIA Hx Anesthesia Reactions: No Hx Malignant Hyperthermia: No Meds Allergies/Adverse Reactions: Allergies Allergy/AdvReac Type Severity Reaction Status Date / Time No Known Allergies Allergy Verified 06/29/16 12:08 - Medications Medications: Current Medications Sodium Chloride (Sodium Chloride 0.9%) 1,000 mls @ 200 mls/hr IV .Q5H IAIN Last Admin: 06/30/16 05:14 Dose: 200 mls/hr Meropenem 1g/NS 100mL IVPB (Meropenem 1g/Ns 100ml Ivpb) 100 mls @ 100 mls/hr IVPB Q12 IAIN PRN Reason: Protocol Stop: 07/07/16 06:31 Last Admin: 06/30/16 06:43 Dose: 100 mls/hr Linezolid (Zyvox 600mg/300ml D5w) 300 mls @ 200 mls/hr IVPB Q12 IAIN PRN Reason: Protocol Stop: 07/07/16 06:31 Last Admin: 06/30/16 06:50 Dose: 200 mls/hr Insulin Human Lispro (Humalog Low) 0 units SC ACHS IAIN PRN Reason: Protocol Last Admin: 06/30/16 11:50 Dose: 1 units Nystatin (Nystop Topical Powder) 0 gm TOP BID IAIN Last Admin: 06/30/16 04:46 Dose: 1 applic Ondansetron HCl (Zofran Inj) 4 mg IVP Q6H PRN PRN Reason: Nausea/Vomiting Pantoprazole Sodium (Protonix Inj) 40 mg IVP DAILY IAIN Last Admin: 06/30/16 09:01 Dose: 40 mg Physical Exam - Constitutional Appears: Non-toxic, No Acute Distress - Head Exam Head Exam: NORMAL INSPECTION - Eye Exam Eye Exam: Normal appearance. absent: Scleral icterus - ENT Exam ENT Exam: Mucous Membranes Moist - Neck Exam Neck exam: Positive for: Normal Inspection. Negative for: Lymphadenopathy - Respiratory Exam Respiratory Exam: NORMAL BREATHING PATTERN. absent: Rhonchi, Wheezes, Respiratory Distress Additional comments: Minimal basal crackles; - Cardiovascular Exam Cardiovascular Exam: RRR, +S1, +S2 - GI/Abdominal Exam GI & Abdominal Exam: Soft. absent: Distended Additional comments: Mild epigastric tenderness - Exam Exam: absent: Bladder Distension - Extremities Exam Extremities exam: Positive for: normal capillary refill Additional comments: Moderately edematous R upper arm; Moderate bilateral lower leg edema with mild erythema; Unable to palpate bilateral DP pulses; - Neurological Exam Neurological exam: Alert, Oriented x3 Additional comments: No sensation over R arm; - Psychiatric Exam Psychiatric exam: Normal Affect, Normal Mood - Skin Skin Exam: Normal Color, Warm Results - Vital Signs Recent Vital Signs: Last Vital Signs Temp 99.9 F H 06/30/16 04:00 Pulse 118 H 06/30/16 07:00 Resp 25 H 06/30/16 07:00 BP 94/56 L 06/30/16 07:00 Pulse Ox 95 06/30/16 07:00 - Labs Result Diagrams: 07/01/16 14:25 07/01/16 14:25 Labs: Laboratory Results - last 24 hr 06/29/16 06/30/16 06/30/16 21:55 00:15 05:40 WBC 20.7 H D RBC 4.02 Hgb 12.8 Hct 37.1 MCV 92.3 MCH 31.8 MCHC 34.5 RDW 14.4 Plt Count 311 MPV 9.8 Neutrophils % (Manual) 82 H Band Neutrophils % 4 H Lymphocytes % (Manual) 8 L Monocytes % (Manual) 6 Platelet Evaluation Normal pO2 108 H VBG pH 7.40 VBG pCO2 36.0 L VBG HCO3 22.3 VBG Total CO2 23.4 VBG O2 Sat (Calc) 98.2 H VBG Base Excess -2.0 L VBG Potassium 4.7 Sodium 133.0 135 132 Chloride 104.0 102 100 Glucose 211 H Lactate 1.4 FiO2 21.0 Potassium 4.8 4.6 Carbon Dioxide 17 L 20 L Anion Gap 21 H 17 BUN 47 H 47 H Creatinine 2.5 H 2.7 H Est GFR ( Amer) 23 21 Est GFR (Non-Af Amer) 19 17 Random Glucose 210 H 185 H Calcium 7.9 L 7.3 L Total Bilirubin 1.0 1.0 AST 1266 H 1022 H ALT 348 H 346 H Alkaline Phosphatase 102 92 Total Creatine Kinase 64570 H 96975 H CK-MB (CK-2) 316 H 201 H CK-MB (CK-2) % 0.6 L 0.5 L Total Protein 7.0 6.6 Albumin 3.2 2.9 L Globulin 3.8 3.6 Albumin/Globulin Ratio 0.8 L 0.8 L Venous Blood Potassium 4.7 - Imaging and Cardiology US - abdomen Status: Image reviewed by me Additional comment: Relatively preserved renal echogenicity bilaterally; cortical thinning bilaterally; multiple cysts present; Assessment & Plan (1) Rhabdomyolysis Assessment and Plan: Secondary to R upper arm muscle injury in the setting of prolonged immobilization after fall; CK level now trending downward, however, already with anuric DIMITRY; R radial pulse palpable but significantly weaker than one on L ; would expect CK level to rise further if compartment syndrome present; mild hypocalcemia (corrected for hypoalbuminemia); -avoid Ca repletion unless patient with sympomatic hypocalcemia or with relevant ECG changes (in order to avoid hypercalcemia as muscle recovers from injury) -no benefit from IVF after anuric DIMITRY has occurred -continue to monitor CK level and R arm pulses Status: Acute (2) Lower extremity edema Assessment and Plan: Chronic edema with history of cellulitis as well; was on lasix 80 mg in am and 40 mg in pm as outpatient; last 2 echo reports note normal EF, no mention of findings consistent with diastolic dysfunction or pulmonary htn; -may benefit from venous compression stockings bilaterally Status: Acute (3) Acute renal failure Assessment and Plan: DIMITRY on CKD III; oligo-anuric renal failure secondary to acute tubular necrosis due to severe rhabdomyolysis with urine microscopy showing numerous coarse granular casts (>10 per 10x field); blood pressure has been low/normal despite having received over 4L isotonic IVF in the setting of SIRS/sepsis and possibly contributing to tubular injury; however, as anuric ATN has already set in, the course of renal recovery cannot be altered with IVF; Patient with minimal signs of pulmonary congestion on exam currently; mild metabolic acidosis in the setting of renal failure; no urgent indication for [employer]UFACT[employer]ING [employer] at this time; -cautious use of IVF -repeat CXR later this evening -can give high dose of lasix prn for vascular congestion (at least 120 mg IVP) if BP stable -avoid nephrotoxic agents -will likely need hemodialysis in the next 24 hours if remains anuric Status: Acute (4) SIRS (systemic inflammatory response syndrome) Assessment and Plan: Marked leukocytosis, somewhat improved, although exaggerated by hemoconcentration on presentation; blood and urine cultures negative to date; question of cholecystitis with gallstone/gallbladder sludge, GI and surgery evaluating; awaiting MRCP and HIDA scan; -need to dose antibiotics for CrCl < 10 ml/min; consider to change meropenem to 500 mg q24hrs; no renal dose adjustment needed for linezolid Status: Acute (5) CKD (chronic kidney disease) stage 3, GFR 30-59 ml/min Assessment and Plan: Non-proteinuric kidney disease per previous UA with baseline serum creatinine ~ 1.1 but noted to have fluctuations that are consistent with cardiorenal/ renovascular etiology; also with multiple renal cysts and renal cortices that appear thin; -continue with statin therapy as outpatient once renal function stabilizes Status: Acute - Assessment and Plan (Free Text) Assessment: Total critical care time spent in reviewing patient's history, labs, personally visualizing urine microscopy and discussion with critical care team: > 1 hr
[2016-06-30] MEDS ORDERED: Sodium Chloride 0.9% 2,000 ML IV STA (15:02)
--- NOTE | 2016-06-30 15:06 | CP.PCM.CON ---
History of Present Illness - History of Present Illness History of Present Illness: 75 year old female with PMH of HTN, CHF, DM, morbid obesity with BMI 47, hypothyroidism, S/P hysterectomy, S/P bilateral knee replacements, dyslipidemia , history of TIA, dyslipidemia, history of chronic lower extremity cellulitis, degenerative arthritis was admitted because of being found on the ground after a syncopal episode. Prior to this the patient was noted to have a 3 day history of nausea and episodes of vomiting. The patient did not have fever or chills, no diarrhea, no SOB, no cough or colds, no dysuria. In the ED, work up revealed rhabdomyolysis. The patient was also noted to have slightly elevated bilirubin, and possible cholecystitis on CT abdomen. Infectious diseases consult is requested to further evaluate and manage. Review of Systems - Review of Systems All systems: reviewed and no additional remarkable complaints except (as per HPI ) Past Patient History - Infectious Disease Hx of Infectious Diseases: None - Past Medical History & Family History Past Medical History?: Yes Past Family History: Reviewed and not pertinent - Past Social History Smoking Status: Former Smoker (>30 pack years 1 PPD, quit when 43 y/o) Alcohol: Social Drugs: Denies Home Situation {Lives}: Alone - CARDIAC Hx Cardiac Disorders: No Hx Hypercholesterolemia: Yes Hx Hypertension: Yes Hx Pacemaker: No - NEUROLOGICAL Hx Paralysis: No Hx Transient Ischemic Attacks (TIA): Yes - ENDOCRINE/METABOLIC Hx Endocrine Disorders: Yes Hx Diabetes Mellitus Type 2: Yes Hx Hypothyroidism: Yes - HEMATOLOGICAL/ONCOLOGICAL Hx Blood Disorders: Yes Hx Blood Transfusions: Yes Hx Blood Transfusion Reaction: No Other/Comment: DVT - INTEGUMENTARY Hx Cellulitis: Yes (BL LE) Other/Comment: cellulitis bilateral lower legs - MUSCULOSKELETAL/RHEUMATOLOGICAL Hx Musculoskeletal Disorders: Yes Hx Degenerative Joint Disease: Yes - GASTROINTESTINAL Hx Gastrointestinal Disorders: Yes (GI BLEED) - GENITOURINARY/GYNECOLOGICAL Hx Genitourinary Disorders: No Hx Reproductive Disorders: No - PSYCHIATRIC Hx Psychophysiologic Disorder: No Hx Emotional Abuse: No Hx Physical Abuse: No Hx Substance Use: No - SURGICAL HISTORY Hx Surgeries: Yes Hx Hysterectomy: Yes (1983) Hx Orthopedic Surgery: Yes (bilateral knee replacements) Other/Comment: right knee replacement 2012, left knee replacement 2003 - ANESTHESIA Hx Anesthesia Reactions: No Hx Malignant Hyperthermia: No Meds Allergies/Adverse Reactions: Allergies Allergy/AdvReac Type Severity Reaction Status Date / Time No Known Allergies Allergy Verified 04/23/17 12:08 - Medications Medications: Current Medications Piperacillin Sod/Tazobactam Sod (Zosyn 2.25 Gm In 0.9% 100 Ml) 100 mls @ 100 mls/hr IVPB Q6 IAIN PRN Reason: Protocol Stop: 06/30/16 06:59 Last Admin: 06/30/16 05:13 Dose: 100 mls/hr Sodium Chloride (Sodium Chloride 0.9%) 1,000 mls @ 200 mls/hr IV .Q5H IAIN Last Admin: 06/30/16 05:14 Dose: 200 mls/hr Meropenem 1g/NS 100mL IVPB (Meropenem 1g/Ns 100ml Ivpb) 100 mls @ 100 mls/hr IVPB Q12 IAIN PRN Reason: Protocol Stop: 07/07/16 06:31 Linezolid (Zyvox 600mg/300ml D5w) 300 mls @ 200 mls/hr IVPB Q12 IAIN PRN Reason: Protocol Stop: 07/07/16 06:31 Nystatin (Nystop Topical Powder) 0 gm TOP BID [facility] Last Admin: 06/30/16 04:46 Dose: 1 applic Ondansetron HCl (Zofran Inj) 4 mg IVP Q6H PRN PRN Reason: Nausea/Vomiting Pantoprazole Sodium (Protonix Inj) 40 mg IVP DAILY [facility] Physical Exam - Constitutional Appears: Non-toxic, No Acute Distress - Head Exam Head Exam: NORMAL INSPECTION - ENT Exam ENT Exam: Mucous Membranes Moist - Neck Exam Neck exam: Negative for: Lymphadenopathy, Meningismus - Respiratory Exam Respiratory Exam: Decreased Breath Sounds - Cardiovascular Exam Cardiovascular Exam: +S1, +S2 - GI/Abdominal Exam GI & Abdominal Exam: Soft, Tenderness (diffuse, mild). absent: Distended, Guarding, Rigid Results - Vital Signs Recent Vital Signs: Last Vital Signs Temp 99.9 F H 06/30/16 04:00 Pulse 110 H 06/30/16 05:00 Resp 27 H 06/30/16 05:00 BP 117/69 06/30/16 05:00 Pulse Ox 97 06/30/16 05:00 - Labs Result Diagrams: 06/30/16 05:40 06/30/16 05:40 Labs: Laboratory Results - last 24 hr 04/06/30/16 06/30/16 21:55 00:15 05:40 WBC 20.7 H D RBC 4.02 Hgb 12.8 Hct 37.1 MCV 92.3 MCH 31.8 MCHC 34.5 RDW 14.4 Plt Count 311 MPV 9.8 pO2 108 H VBG pH 7.40 VBG pCO2 36.0 L VBG HCO3 22.3 VBG Total CO2 23.4 VBG O2 Sat (Calc) 98.2 H VBG Base Excess -2.0 L VBG Potassium 4.7 Sodium 133.0 135 132 Chloride 104.0 102 100 Glucose 211 H Lactate 1.4 FiO2 21.0 Potassium 4.8 4.6 Carbon Dioxide 17 L 20 L Anion Gap 21 H 17 BUN 47 H 47 H Creatinine 2.5 H Est GFR ( Amer) 23 Est GFR (Non-Af Amer) 19 Random Glucose 210 H 185 H Calcium 7.9 L 7.3 L Total Bilirubin 1.0 1.0 AST 1266 H ALT 348 H 346 H Alkaline Phosphatase 102 92 Total Creatine Kinase 74453 H CK-MB (CK-2) 316 H CK-MB (CK-2) % 0.6 L Total Protein 7.0 6.6 Albumin 3.2 2.9 L Globulin 3.8 3.6 Albumin/Globulin Ratio 0.8 L 0.8 L Venous Blood Potassium 4.7 Assessment & Plan - Assessment and Plan (Free Text) Plan: Assessment Consider severe sepsis with acute renal failure in a patient with acute severe rhabdomyolysis, consider secondary to acute cholecystitis/ biliary tree infection in a patient with biliary tree stones HTN chronic CHF DM morbid obesity with BMI 47 hypothyroidism S/P hysterectomy S/P bilateral knee replacements dyslipidemia history of TIA dyslipidemia history of chronic lower extremity cellulitis degenerative arthritis Plan Patient given one dose of IV Vancomycin and started Zyvox and Meropenem pending blood, urine cx; follow up evaluation and surgery - will monitor transaminases and bilirubin will follow clinically
--- NOTE | 2016-06-30 16:56 | NM ---
PROCEDURE: Nuclear Medicine Hepatobiliary Scan HISTORY: acute cholecystitis COMPARISON: Comparison is made to the previous CT dated 06/30/2016 previous ultrasound of the abdomen dated 06/29/2016 TECHNIQUE: 6.6 mCi of technetium 99m Mebrofenin was administered intravenously. Planar images of the abdomen were obtained at 5 min intervals to 60 mins. Delayed images were also obtained. FINDINGS: LIVER: Timely and homogenous uptake. COMMON BILE DUCT: identified at 15 mins. GALLBLADDER: Was not identified up to 4 hours after the radiotracer injection. SMALL BOWEL: Identified at 30 mins. IMPRESSION: Nonvisualization of the gallbladder after 60 minutes and 4 hours from the tracer injection. The possibility of acute cholecystitis should be considered. No evidence of common bile duct obstruction.
[2016-06-30 17:45] LABS: HEMATOCRIT 34.2 % (36.0-48.0); MEAN CELL VOLUME 91.7 fL (80.0-105.0); MEAN CORPUSCULAR HEMOGLOBIN 32.4 pg (25.0-35.0); MEAN CORPUSCULAR HGB CONC 35.4 g/dl (31.0-37.0); MEAN PLATELET VOLUME 10.8 fl (7.0-11.0); PLATELET COUNT 356 10^3/uL (120.0-450.0); RED CELL DISTRIBUTION WIDTH 15.5 % (11.5-14.5); WHITE BLOOD COUNT 20.1 10^3/ul (4.5-11.0)
[2016-06-30 17:50] LABS: ADD MANUAL DIFF? YES
[2016-06-30 18:08] LABS: ALB/GLOB RATIO 0.8 (1.1-1.8); BILIRUBIN,TOTAL 0.9 mg/dL (0.2-1.3); CALCIUM 7.2 mg/dL (8.4-10.5); POTASSIUM 4.8 mmol/L (3.6-5.0); TOTAL PROTEIN 6.3 g/dL (5.8-8.3)
[2016-06-30 18:24] LABS: EOSINOPHIL 1 % (0.0-3.0); PLATELET ESTIMATE NORMAL (NORMAL)
[2016-06-30 18:25] LABS: NEUTROPHIL 85 % (50.0-70.0)
[2016-06-30] MEDS ORDERED: Sodium Chloride 0.9% 1,000 ML IV STA (19:06)
--- NOTE | 2016-06-30 19:39 | PN ---
DATE: 06/30/2016 SUBJECTIVE: This patient was seen and evaluated earlier today. The patient comfortable, mild discom fort in the right upper quadrant area. PHYSICAL EXAMINATION: VITAL SIGNS: Pulse 114, blood pressure is 94/56, respirations 26, O2 saturation 95. HEENT: Atraumatic, anicteric. NECK: Supple. HEART: S1, S2 heard. LUNGS: Bilateral air entry present. ABDOMEN: Soft. There is mild tenderness present in the left lower quadrant area. EXTREMITIES: The patient has ecchymosis and tenderness present in the right shoulder area. NEUROLOGIC: Alert, oriented. LABORATORY DATA: WBC is 20.1, hemoglobin 12.1, hematocrit 34.1, platelet count 356. Chemistry: CPK is 23,889. AST is 740. ALT is 305. Alkaline phosphatase normal at 88. The patient did have a HID A scan showed gallbladder was not identified up to 4 hours of . IMPRESSION: This is a 75-year-old patient with a past medical history of gallstones, status post ERC P, sphincterotomy, and removal of the common bile duct stone, admitted following a fall and also rhab domyolysis, septic clinically suggestive of acute cholecystitis, now on IV antibiotics. RECOMMENDATIONS: Would recommend: 1. Continue the IV antibiotics. 2. Followup of the LFTs. 3. Followup of the MRCP requested. 4. Other problems include rhabdomyolysis, shoulder hematoma. We will continue to closely follow up her care and . History of diabetes mellitus, status post bilateral knee placement; TIA. We sergey l continue to closely follow up her care and suggest further management based on the clinical course. I did discuss with Dr. Elias and also finance advisor earlier today. Kavon Duncan MD cc: [id number] TT: 06/30/2016 19:39:13 Confirmation # [id number] Dictation # [id number] mn
--- NOTE | 2016-06-30 20:33 | CON ---
DATE: 06/30/2016 HISTORY OF PRESENT ILLNESS: This is a 75-year-old female with a past medical history of TIA, hyperte nsion, CHF and hypothyroidism, who came to the Emergency Room status post fall in the bathroom and wa s unable to get up and for 2-3 days lying on the floor, fatigued and tired. Prior to the fall the pa evelyne vomited several times biliary secretions. She denies any loss of consciousness. No chest pain . The patient had a biliary stent put in 2 years ago and I was called to evaluate the patient beau mcdermott the patient following the fall developed some hematoma on the right side of the face and along the corner of the right eye and unable to move the right upper extremity. PAST MEDICAL HISTORY: CHF, hypertension, colitis, hypothyroidism. ALLERGIES: No known drug allergies. MEDICATIONS: Synthroid, Lipitor, aspirin, metoprolol, Lasix. SOCIAL HISTORY: Does not smoke, does not drink. REVIEW OF SYSTEMS: A 10-point review exam was done, negative except right upper extremity weakness. PHYSICAL EXAMINATION: HEENT: Normocephalic, atraumatic. NECK: Supple. NEUROLOGIC: Awake, alert, oriented to self. No aphasia. Cranial nerves II through XII were tested. Pupils reactive. EOMs intact. Visual miramontes full. No facial asymmetry. Tongue midline. Motor e xamination: Moves all the extremities spontaneously except right upper extremity, unable to move and absent reflexes in the right upper extremity. Cerebellar and gait deferred. IMPRESSION: Status post trauma, syncope, fall sustaining injury to the right upper extremity, possib ly right brachial plexus injury. CAT scan of the head was negative. CAT scan of the cervical spine did not show anything and no fracture was noted. Possibly right brachial plexus injury and rhabdomyo lysis. PLAN: Continue present management. Will followup. Tam Ordonez MD cc: [id number] TT: 06/30/2016 20:33:12 Confirmation # [id number] Dictation # [id number] millie
[2016-06-30 22:39] LABS: HEMATOCRIT 31.3 % (36.0-48.0); MEAN CELL VOLUME 92.6 fL (80.0-105.0); MEAN CORPUSCULAR HGB CONC 34.5 g/dl (31.0-37.0); MEAN PLATELET VOLUME 9.9 fl (7.0-11.0); PLATELET COUNT 279 10^3/uL (120.0-450.0); RED CELL DISTRIBUTION WIDTH 14.5 % (11.5-14.5); WHITE BLOOD COUNT 22.3 10^3/ul (4.5-11.0)
[2016-06-30 22:44] LABS: ADD MANUAL DIFF? YES
[2016-06-30 23:09] LABS: ALB/GLOB RATIO 0.7 (1.1-1.8); BILIRUBIN,TOTAL 0.7 mg/dL (0.2-1.3); POTASSIUM 4.5 mmol/L (3.6-5.0); TOTAL PROTEIN 5.7 g/dL (5.8-8.3)
[2016-06-30 23:18] LABS: CALCIUM 6.7 mg/dL (8.4-10.5)
[2016-06-30 23:22] LABS: EOSINOPHIL 1 % (0.0-3.0)
[2016-06-30 23:23] LABS: NEUTROPHIL 89 % (50.0-70.0)
[2016-07-01] MEDS ORDERED: Sodium Chloride 0.9% 1,000 ML IV STA (00:53)
[2016-07-01 06:58] LABS: ADD MANUAL DIFF? NO
[2016-07-01 07:22] LABS: ALB/GLOB RATIO 0.8 (1.1-1.8); BILIRUBIN,TOTAL 0.7 mg/dL (0.2-1.3); POTASSIUM 4.6 mmol/L (3.6-5.0); TOTAL PROTEIN 5.8 g/dL (5.8-8.3)
[2016-07-01 07:45] LABS: BASO # 0.01 K/mm3 (0.0-2.0); GRAN # 21.21 (1.4-6.5); GRAN % 88.8 % (50.0-68.0); LYMPH # 1.2 (1.2-3.4); LYMPH % 4.9 % (22.0-35.0); MEAN CELL VOLUME 92.8 fL (80.0-105.0); MEAN CORPUSCULAR HEMOGLOBIN 31.4 pg (25.0-35.0); MEAN CORPUSCULAR HGB CONC 33.9 g/dl (31.0-37.0); MEAN PLATELET VOLUME 10.4 fl (7.0-11.0); MONO # 1.5 (0.1-0.6); MONO % 6.3 % (1.0-6.0); PLATELET COUNT 292 10^3/uL (120.0-450.0); RED CELL DISTRIBUTION WIDTH 14.7 % (11.5-14.5); WHITE BLOOD COUNT 23.9 10^3/ul (4.5-11.0)
[2016-07-01] MEDS: Insulin Lispro (humaLOG) LOW Coverage SC SCH ×4 (07:54→22:01)
[2016-07-01 08:03] LABS: CALCIUM 6.8 mg/dL (8.4-10.5)
--- NOTE | 2016-07-01 08:27 | CP.PCM.PN ---
Subjective - Date & Time of Evaluation Date of Evaluation: 07/01/16 Time of Evaluation: 08:13 - Subjective Subjective: Surgery Progress note. Dr. Elias Pt seen and examined at bedside. No acute events overnight. Denies any abdominal pain. No N/V. No F/C. Still denies any sensation or motor control of Right upper extremity. No new complaints. Objective - Vital Signs/Intake and Output Vital Signs (last 24 hours): Temp Pulse Resp BP Pulse Ox 98.2 F 98 H 20 101/50 L 94 L 07/01/16 00:00 07/01/16 03:04 07/01/16 03:00 07/01/16 03:00 07/01/16 03:00 - Medications Medications: Current Medications Sodium Chloride (Sodium Chloride 0.9%) 1,000 mls @ 200 mls/hr IV .Q5H [facility] Last Admin: 06/30/16 22:28 Dose: 200 mls/hr Meropenem 1g/NS 100mL IVPB (Meropenem 1g/Ns 100ml Ivpb) 100 mls @ 100 mls/hr IVPB Q12 IAIN PRN Reason: Protocol Stop: 07/07/16 06:31 Last Admin: 06/30/16 22:28 Dose: 100 mls/hr Linezolid (Zyvox 600mg/300ml D5w) 300 mls @ 200 mls/hr IVPB Q12 IAIN PRN Reason: Protocol Stop: 07/07/16 06:31 Last Admin: 06/30/16 22:29 Dose: 200 mls/hr Insulin Human Lispro (Humalog Low) 0 units SC ACHS IAIN PRN Reason: Protocol Last Admin: 07/01/16 07:54 Dose: Not Given Levothyroxine Sodium (Synthroid) 75 mcg PO ACB IAIN Nystatin (Nystop Topical Powder) 0 gm TOP BID [facility] Last Admin: 06/30/16 04:46 Dose: 1 applic Ondansetron HCl (Zofran Inj) 4 mg IVP Q6H PRN PRN Reason: Nausea/Vomiting Last Admin: 06/30/16 12:15 Dose: 4 mg Pantoprazole Sodium (Protonix Inj) 40 mg IVP DAILY [facility] Last Admin: 06/30/16 09:01 Dose: 40 mg - Labs Labs: 07/01/16 04:30 07/01/16 04:30 PT 11.2 Seconds (9.9-11.8) 06/29/16 12:56 INR 1.04 (0.93-1.08) 06/29/16 12:56 APTT 46.7 Seconds (23.7-30.8) H 06/29/16 12:56 - Constitutional Appears: Well, No Acute Distress - Head Exam Head Exam: ATRAUMATIC, NORMAL INSPECTION, NORMOCEPHALIC - Eye Exam Eye Exam: EOMI, Normal appearance. absent: PERRL, Scleral icterus - ENT Exam ENT Exam: Mucous Membranes Moist - Respiratory Exam Respiratory Exam: NORMAL BREATHING PATTERN - Cardiovascular Exam Cardiovascular Exam: RRR. absent: JVD - GI/Abdominal Exam GI & Abdominal Exam: Soft. absent: Distended, Firm, Guarding, Rigid, Tenderness - Extremities Exam Extremities Exam: Normal Inspection - Neurological Exam Neurological Exam: Alert, Awake, Oriented x3 - Skin Skin Exam: Dry, Intact, Normal Color, Warm Assessment and Plan - Assessment and Plan (Free Text) Assessment: 75yo F here after fall, down on right arm for . Hx of Biliary stent 2 years ago , since removed. Here with Nausea/Bilious vomiting elevated LFTs. Sepsis. - BP improving. Tacycardic - T.bili now normal. LFTs trending down - ABD US - 5 x 6cm lesion in gallbladder fundus. Sludge. no wall thickening. CBD 0.7-0.86cm. - CT A/P: Distended GB, Gallstones, soft tissue mass in GB. Minimal fat stranding. (awaiting official report) - HIDA - non-visualized Gallbladder. with the history of previous biliary stents, consider billiary tree stricture as well. Will request MRCP or ERCP for further Eval. - NPO - Continue Abx - Plan for Lap Sabra tomorrow, 07/[address] Curt Matta PGY1 surgery pager: [phone]
[2016-07-01] MEDS ORDERED: Sodium Bicarbonate 8.4% 50 MEQ in Dextrose 5% In Water 1,000 ML IVP ONE (09:30)
[2016-07-01 09:56] LABS: ADD MANUAL DIFF? NO
[2016-07-01 10:00] LABS: BASO # 0.01 K/mm3 (0.0-2.0); EOS % 0.2 % (1.5-5.0); GRAN # 20.31 (1.4-6.5); GRAN % 88.4 % (50.0-68.0); HEMATOCRIT 30.6 % (36.0-48.0); LYMPH # 1.2 (1.2-3.4); LYMPH % 5.1 % (22.0-35.0); MEAN CELL VOLUME 93.3 fL (80.0-105.0); MEAN CORPUSCULAR HEMOGLOBIN 31.7 pg (25.0-35.0); MEAN PLATELET VOLUME 9.8 fl (7.0-11.0); MONO # 1.4 (0.1-0.6); MONO % 6.3 % (1.0-6.0); PLATELET COUNT 274 10^3/uL (120.0-450.0); RED CELL DISTRIBUTION WIDTH 14.8 % (11.5-14.5)
[2016-07-01 10:13] LABS: ALB/GLOB RATIO 0.8 (1.1-1.8); BILIRUBIN,TOTAL 0.6 mg/dL (0.2-1.3); POTASSIUM 4.5 mmol/L (3.6-5.0); TOTAL PROTEIN 5.7 g/dL (5.8-8.3)
[2016-07-01 10:21] LABS: CALCIUM 6.8 mg/dL (8.4-10.5)
[2016-07-01] MEDS: Meropenem 1g/NS 100mL IVPB 100 ML IVPB SCH ×2 (10:42→21:52)
[2016-07-01] MEDS: Linezolid 600 mg in D5W 300 ml 300 ML IVPB SCH ×2 (10:47→21:52)
[2016-07-01] MEDS: Albumin Human 25% (25 gm/100 ml) IV SCH ×2 (10:58→18:43)
--- NOTE | 2016-07-01 11:30 | PN ---
DATE: 07/01/2016 The patient is in the ICU. Note that the vital signs are normal, afebrile with a pulse of about 98. She is not making a lot of urine, but is having multiple bowel movements, being treated with IV anti biotics. Her white count initially was 37, down to 23, hemoglobin stable, platelets normal at 274. Coags showed a PTT of 46.7 which is an issue. I believe that is spontaneous and we will repeat it. Liver functions are improving. The total bili is 0.6. The AST was 500, the ALT 240, normal alk phos . There is still no function in the right arm. She is alert, awake and oriented, remembers me. The abdomen is soft, nontender. She is very obese, but nontender without guarding or rebound. Discusse d with Dr. Duncan. Clearly this seems to be acute cholecystitis. My problem is the history of ana nt and "stenosis," common duct stone. I believe there is back pressure from this which might have be en the inciting event, I will ask for MRCP and possible ERCP. We will plan to do cholecystectomy. N eurology is on board with the ischemia to the arm. It has a nice strong pulse in it and no real matty a or swelling that I can feel. We will repeat a PTT. Miguel Ángel Elias MD cc: [phone] TT: 07/01/2016 11:29:51 Confirmation # [id number] Dictation # [id number] tn
--- NOTE | 2016-07-01 12:59 | CP.PCM.PN ---
Subjective - Date & Time of Evaluation Date of Evaluation: 07/01/16 Time of Evaluation: 10:00 - Subjective Subjective: Patient is comfortable in bed, no fevers overnight, no nausea currently and no vomiting, still with some abdominal discomfort. Objective - Vital Signs/Intake and Output Vital Signs (last 24 hours): Temp Pulse Resp BP Pulse Ox 98.2 F 98 H 20 101/50 L 94 L 07/01/16 00:00 07/01/16 08:00 07/01/16 03:00 07/01/16 03:00 07/01/16 03:00 - Medications Medications: Current Medications Albumin Human (Albumin Human 25% (25 Gm/100 Ml)) 25 gm IV BID [facility] Stop: 07/03/16 23:59 Last Admin: 07/01/16 10:58 Dose: 25 gm Meropenem 1g/NS 100mL IVPB (Meropenem 1g/Ns 100ml Ivpb) 100 mls @ 100 mls/hr IVPB Q12 IAIN PRN Reason: Protocol Stop: 07/07/16 06:31 Last Admin: 07/01/16 10:42 Dose: 100 mls/hr Linezolid (Zyvox 600mg/300ml D5w) 300 mls @ 200 mls/hr IVPB Q12 IAIN PRN Reason: Protocol Stop: 07/07/16 06:31 Last Admin: 07/01/16 10:47 Dose: 200 mls/hr Sodium Bicarbonate 50 meq/ (Dextrose) 1,050 mls @ 200 mls/hr IVP .Q5H15M ONE Stop: 07/01/16 14:44 Last Admin: 07/01/16 10:58 Dose: Not Given Insulin Human Lispro (Humalog Low) 0 units SC ACHS IAIN PRN Reason: Protocol Last Admin: 07/01/16 07:54 Dose: Not Given Levothyroxine Sodium (Synthroid) 75 mcg PO ACB I[facility] Nystatin (Nystop Topical Powder) 0 gm TOP BID [facility] Last Admin: 06/30/16 04:46 Dose: 1 applic Ondansetron HCl (Zofran Inj) 4 mg IVP Q6H PRN PRN Reason: Nausea/Vomiting Last Admin: 06/30/16 12:15 Dose: 4 mg Pantoprazole Sodium (Protonix Inj) 40 mg IVP DAILY [facility] Last Admin: 07/01/16 10:50 Dose: 40 mg - Labs Labs: 07/01/16 09:30 07/01/16 09:30 PT 11.2 Seconds (9.9-11.8) 06/29/16 12:56 INR 1.04 (0.93-1.08) 06/29/16 12:56 APTT 46.7 Seconds (23.7-30.8) H 06/29/16 12:56 - Constitutional Appears: Non-toxic, No Acute Distress - Head Exam Head Exam: NORMAL INSPECTION - ENT Exam ENT Exam: Mucous Membranes Moist - Neck Exam Neck Exam: absent: Lymphadenopathy, Meningismus - Respiratory Exam Respiratory Exam: Decreased Breath Sounds - Cardiovascular Exam Cardiovascular Exam: +S1, +S2 - GI/Abdominal Exam GI & Abdominal Exam: Soft. absent: Tenderness Assessment and Plan - Assessment and Plan (Free Text) Plan: Assessment severe sepsis with acute renal failure in a patient with acute severe rhabdomyolysis, consider secondary to acute cholecystitis/ biliary tree infection in a patient with biliary tree stones HTN chronic CHF DM morbid obesity with BMI 47 hypothyroidism S/P hysterectomy S/P bilateral knee replacements dyslipidemia history of TIA dyslipidemia history of chronic lower extremity cellulitis degenerative arthritis Plan continue Zyvox and Meropenem pending final blood, urine cx results; reviewed HIDA scan results - possible acute cholecystitis will follow up GI and Surgery recommendations
--- NOTE | 2016-07-01 13:26 | PN ---
DATE: 07/01/2016 Seen and examined at the bedside earlier today. She denies any nausea, vomiting. She does have some right-sided abdominal discomfort, but in no acute distress. No reports of any overt GI bleed. Reported to have loose stool yesterday. Stool for C. diff was sent, which is negative. She also went for HIDA scan yesterday, which is reporting nonvisualization of the gallbladder. No evidence of common bile duct obstruction though. VITAL SIGNS: Temperature 98.7, blood pressure is 102/54, pulse rate is 98, respirations 20, and 94 O2 saturation. LABORATORY DATA: Today, WBC is 23.0, hemoglobin is 10.4, hematocrit 30.6, platelets 274. Sodium 136, K is 4.5, BUN is 53, creatinine is 3.7. Her calcium is 6.8. Total bilirubin is 0.6, AST 584, ALT 240, alkaline phosphatase is 87. Her total creatine kinase is . AST, ALT are about the same, but her total CK continues to trend downwards. HIDA scan shows nonvisualization of the gallbladder, possible acute cholecystitis. There is no evidence of common bile duct obstruction. PHYSICAL EXAMINATION: HEENT: Sclerae are anicteric. NECK: Supple. CARDIAC: S1, S2. LUNGS: With decreased breath sounds, but good aeration. ABDOMEN: She does have some tenderness to the right upper quadrant area. No rebound, guarding, or organomegaly. SKIN: The bruising on her face is dry and intact. ASSESSMENT: This is a 75-year-old female status post fall with rhabdomyolysis as well as sepsis with probable acute cholecystitis. She does have a history of gallstones and had an ERCP with sphincterotomy and removal of common bile duct stones. She has also a shoulder hematoma, history of diabetes mellitus, congestive heart failure and bilateral knee replacements. PLAN: She is going for an MRI of the abdomen to rule out any intrabiliary cholestasis. She is on IV antibiotics. She is on Zyvox, meropenem. Continue GI prophylaxis. She is on Protonix. Received some albumin. Continue to monitor LFTs as well as her CK level. She is also being followed by surgery. The patient with right upper extremity decreased sensation, being followed by neurology as well as ID. We will continue to follow closely and make further recommendations after review of the MRI, MRCP. The patient was seen and case discussed with Dr. Duncan. Sweetie BUNN cc: [id number] TT: 07/01/2016 13:25:49 Confirmation # [id number] Dictation # [id number] maksim SALGADO
--- NOTE | 2016-07-01 13:57 | CP.CCUPN ---
<Diego Lama - Last Filed: 07/01/16 14:13> CCU Subjective - Physician Review Subjective (Free Text): Pt seen and examined at bedside. Pt with no acute events overnight. Pt remains oliguric, producing 50 cc of urine overnight. Pt states she is stil unable to move her right arm and has no feeling in it. Denies any new complaints. Denies CP, SOB, N/V/D, fevers, chills. CCU Objective - Vital Signs / Intake & Output Vital Signs (Last 4 hours): Vital Signs Pulse Resp BP Pulse Ox 07/01/16 12:30 99 H 25 H 106/43 L 93 L 07/01/16 12:00 99 H 24 101/52 L 95 07/01/16 11:49 99 H 16 93/50 L 95 07/01/16 11:00 96 H 96 07/01/16 10:33 94 H 12 07/01/16 10:30 95 H 127/84 97 07/01/16 10:23 96 H 9 L 07/01/16 10:22 97 H 10 L 07/01/16 10:21 99 H 19 07/01/16 10:20 98 H 19 07/01/16 10:19 98 H 20 07/01/16 10:12 97 H 20 113/53 L 95 07/01/16 10:06 97 H 15 07/01/16 10:05 98 H 18 07/01/16 10:04 98 H 17 07/01/16 10:02 98 H 16 07/01/16 10:01 99 H 23 07/01/16 10:00 102 H 21 96 Intake and Output (Last 8hrs): Intake & Output 06/30/16 07/01/16 07/01/16 22:59 06:59 14:59 Intake Total 2200 Output Total 50 Balance 2150 Intake: IV 1999 Left Hand 2000 Oral 0 Tube Feeding 0 TPN/PPN 0 Blood Product 0 Lipid 0 Albumin 0 Other 200 Output: Urine 50 Urethral (Briones) 50 Stool 0 Urine/Stool Mix 0 Emesis 0 Oral Regurgitation 0 Other 0 Other: Voiding Method Indwelling Catheter Indwelling Catheter Indwelling Catheter # Voids Urethral (Briones) 0 # Bowel Movements 3 - Physical Exam Head: Positive for: Ecchymosis (Along lower right face) Pupils: Positive for: PERRL Extroacular Muscles: Positive for: EOMI Conjunctiva: Positive for: Normal. Negative for: Icteric Respiratory/Chest: Positive for: Clear to Auscultation, Good Air Exchange. Negative for: Rales, Rhonchi Cardiovascular: Positive for: Regular Rate and Rhythm, Normal S1, S2. Negative for: Murmurs Abdomen: Positive for: Normal Bowel Sounds. Negative for: Tenderness, Distention, Guarding Upper Extremity: Positive for: NORMAL PULSES, Other (Unable to move right arm. No sensation in right arm. Ecchymoses on right shoulder). Negative for: Tenderness Lower Extremity: Positive for: Normal Inspection, Edema (trace). Negative for: CALF TENDERNESS Neurological: Positive for: Speech Normal, Other (No sensation in right upper extremity to light touch or deep stimulation.). Negative for: Motor Func Grossly Intact, Normal Sensory Function Skin: Positive for: Warm, Dry, Other (Ecchymoses on right upper extremity) Psychiatric: Positive for: Alert, Oriented x 3, Normal Insight, Normal Concentration - Medications Active Medications: Active Medications Generic Name Dose Route Start Last Admin Trade Name Freq PRN Reason Stop Dose Admin Albumin Human 25 gm 07/01/16 10:00 07/01/16 10:58 Albumin Human 25% (25 Gm/100 Ml) IV 07/03/16 23:59 25 gm BID IAIN Administration Meropenem 1g/NS 100mL IVPB 100 mls @ 100 mls/hr 06/30/16 06:30 07/01/16 10:42 Meropenem 1g/Ns 100ml Ivpb IVPB 07/07/16 06:31 100 mls/hr Q12 IAIN Administration Protocol Linezolid 300 mls @ 200 mls/hr 06/30/16 06:30 07/01/16 10:47 Zyvox 600mg/300ml D5w IVPB 07/07/16 06:31 200 mls/hr Q12 IAIN Administration Protocol Sodium Bicarbonate 50 meq/ 1,050 mls @ 200 mls/hr 07/01/16 09:30 07/01/16 10: 58 Dextrose IVP 07/01/16 14:44 Not Given .[id number] ONE Insulin Human Lispro 0 units 06/30/16 11:30 07/01/16 07:54 Humalog Low SC Not Given ACHS IAIN Protocol Levothyroxine Sodium 75 mcg 07/01/16 07:30 Synthroid PO ACB [facility] Nystatin 0 gm 06/30/16 05:00 06/30/16 04:46 Nystop Topical Powder TOP 1 applic BID IAIN Administration Ondansetron HCl 4 mg 06/29/16 22:58 06/30/16 12:15 Zofran Inj IVP 4 mg Q6H PRN Administration Nausea/Vomiting Pantoprazole Sodium 40 mg 06/30/16 10:00 07/01/16 10:50 Protonix Inj IVP 40 mg DAILY IAIN Administration - Patient Studies Lab Studies: Microbiology Studies 06/29/16 20:00 MRSA Culture (Admit) - Final Naris MRSA NOT DETECTED 06/30/16 05:30 C. difficile Antigen & Toxin A,B (M - Final Stool Lab Studies 07/01/16 07/01/16 07/01/16 Range/Units 12:18 09:30 09:30 WBC 23.0 H (4.5-11.0) 10^3/ul RBC 3.28 L (3.5-6.1) 10^6/uL Hgb 10.4 L (12.0-16.0) gm/dL Hct 30.6 L (36.0-48.0) % MCV 93.3 (80.0-105.0) fL MCH 31.7 (25.0-35.0) pg MCHC 34.0 (31.0-37.0) g/dl RDW 14.8 H (11.5-14.5) % Plt Count 274 (120.0-450.0) 10^3/uL MPV 9.8 (7.0-11.0) fl Gran % 88.4 H (50.0-68.0) % Lymph % (Auto) 5.1 L (22.0-35.0) % Marin % (Auto) 6.3 H (1.0-6.0) % Eos % (Auto) 0.2 L (1.5-5.0) % Baso % (Auto) 0.0 (0.0-3.0) % Gran # 20.31 H (1.4-6.5) Lymph # 1.2 (1.2-3.4) Marin # 1.4 H (0.1-0.6) Eos # 0.0 (0.0-0.7) Baso # 0.01 (0.0-2.0) K/mm3 Neutrophils % (Manual) (50.0-70.0) % Lymphocytes % (Manual) (22.0-35.0) % Monocytes % (Manual) (1.0-6.0) % Eosinophils % (Manual) (0.0-3.0) % Platelet Evaluation (NORMAL) Sodium 136 (132-148) mmol/L Potassium 4.5 (3.6-5.0) mmol/L Chloride 105 (98-107) mmol/L Carbon Dioxide 19 L (21-33) mmol/L Anion Gap 17 (10-20) BUN 53 H (7-21) mg/dL Creatinine 3.7 H (0.5-1.4) mg/dL Est GFR ( Amer) 14 Est GFR (Non-Af Amer) 12 POC Glucose (mg/dL) 102 (65-110) mg/dL Random Glucose 111 H (70-110) mg/dL Calcium 6.8 L* (8.4-10.5) mg/dL Total Bilirubin 0.6 (0.2-1.3) mg/dL AST 584 H (15-39) U/L ALT 240 H (7-56) U/L Alkaline Phosphatase 87 (38-133) U/L Total Creatine Kinase (35-230) U/L CK-MB (CK-2) (0.0-3.6) ng/mL CK-MB (CK-2) % (2.5-3.0) % Total Protein 5.7 L (5.8-8.3) g/dL Albumin 2.5 L (3.0-4.8) g/dL Globulin 3.3 gm/dL Albumin/Globulin Ratio 0.8 L (1.1-1.8) 07/01/16 07/01/16 07/01/16 Range/Units 07:39 04:30 04:30 WBC 23.9 H (4.5-11.0) 10^3/ul RBC 3.34 L (3.5-6.1) 10^6/uL Hgb 10.5 L (12.0-16.0) gm/dL Hct 31.0 L (36.0-48.0) % MCV 92.8 (80.0-105.0) fL MCH 31.4 (25.0-35.0) pg MCHC 33.9 (31.0-37.0) g/dl RDW 14.7 H (11.5-14.5) % Plt Count 292 (120.0-450.0) 10^3/uL MPV 10.4 (7.0-11.0) fl Gran % 88.8 H (50.0-68.0) % Lymph % (Auto) 4.9 L (22.0-35.0) % Marin % (Auto) 6.3 H (1.0-6.0) % Eos % (Auto) 0.0 L (1.5-5.0) % Baso % (Auto) 0.0 (0.0-3.0) % Gran # 21.21 H (1.4-6.5) Lymph # 1.2 (1.2-3.4) Marin # 1.5 H (0.1-0.6) Eos # 0.0 (0.0-0.7) Baso # 0.01 (0.0-2.0) K/mm3 Neutrophils % (Manual) (50.0-70.0) % Lymphocytes % (Manual) (22.0-35.0) % Monocytes % (Manual) (1.0-6.0) % Eosinophils % (Manual) (0.0-3.0) % Platelet Evaluation (NORMAL) Sodium 135 (132-148) mmol/L Potassium 4.6 (3.6-5.0) mmol/L Chloride 104 (98-107) mmol/L Carbon Dioxide 19 L (21-33) mmol/L Anion Gap 17 (10-20) BUN 52 H (7-21) mg/dL Creatinine 3.5 H (0.5-1.4) mg/dL Est GFR ( Amer) 15 Est GFR (Non-Af Amer) 13 POC Glucose (mg/dL) 131 H (65-110) mg/dL Random Glucose 121 H (70-110) mg/dL Calcium 6.8 L* (8.4-10.5) mg/dL Total Bilirubin 0.7 (0.2-1.3) mg/dL AST 595 H (15-39) U/L ALT 241 H (7-56) U/L Alkaline Phosphatase 86 (38-133) U/L Total Creatine Kinase 62855 H (35-230) U/L CK-MB (CK-2) 40.0 H (0.0-3.6) ng/mL CK-MB (CK-2) % 0.3 L (2.5-3.0) % Total Protein 5.8 (5.8-8.3) g/dL Albumin 2.5 L (3.0-4.8) g/dL Globulin 3.3 gm/dL Albumin/Globulin Ratio 0.8 L (1.1-1.8) 06/30/16 06/30/16 06/30/16 Range/Units 22:20 22:20 21:20 WBC 22.3 H (4.5-11.0) 10^3/ul RBC 3.38 L (3.5-6.1) 10^6/uL Hgb 10.8 L (12.0-16.0) gm/dL Hct 31.3 L (36.0-48.0) % MCV 92.6 (80.0-105.0) fL MCH 32.0 (25.0-35.0) pg MCHC 34.5 (31.0-37.0) g/dl RDW 14.5 (11.5-14.5) % Plt Count 279 (120.0-450.0) 10^3/uL MPV 9.9 (7.0-11.0) fl Gran % (50.0-68.0) % Lymph % (Auto) (22.0-35.0) % Marin % (Auto) (1.0-6.0) % Eos % (Auto) (1.5-5.0) % Baso % (Auto) (0.0-3.0) % Gran # (1.4-6.5) Lymph # (1.2-3.4) Marin # (0.1-0.6) Eos # (0.0-0.7) Baso # (0.0-2.0) K/mm3 Neutrophils % (Manual) 89 H (50.0-70.0) % Lymphocytes % (Manual) 6 L (22.0-35.0) % Monocytes % (Manual) 4 (1.0-6.0) % Eosinophils % (Manual) 1 (0.0-3.0) % Platelet Evaluation (NORMAL) Sodium 134 (132-148) mmol/L Potassium 4.5 (3.6-5.0) mmol/L Chloride 103 (98-107) mmol/L Carbon Dioxide 20 L (21-33) mmol/L Anion Gap 16 (10-20) BUN 53 H (7-21) mg/dL Creatinine 3.5 H (0.5-1.4) mg/dL Est GFR ( Amer) 15 Est GFR (Non-Af Amer) 13 POC Glucose (mg/dL) 131 H (65-110) mg/dL Random Glucose 123 H (70-110) mg/dL Calcium 6.7 L* (8.4-10.5) mg/dL Total Bilirubin 0.7 (0.2-1.3) mg/dL AST 660 H (15-39) U/L ALT 267 H (7-56) U/L Alkaline Phosphatase 81 (38-133) U/L Total Creatine Kinase 82839 H (35-230) U/L CK-MB (CK-2) 52.8 H (0.0-3.6) ng/mL CK-MB (CK-2) % 0.3 L (2.5-3.0) % Total Protein 5.7 L (5.8-8.3) g/dL Albumin 2.4 L (3.0-4.8) g/dL Globulin 3.3 gm/dL Albumin/Globulin Ratio 0.7 L (1.1-1.8) 06/30/16 06/30/16 06/30/16 Range/Units 17:00 17:00 16:06 WBC 20.1 H (4.5-11.0) 10^3/ul RBC 3.73 (3.5-6.1) 10^6/uL Hgb 12.1 (12.0-16.0) gm/dL Hct 34.2 L (36.0-48.0) % MCV 91.7 (80.0-105.0) fL MCH 32.4 (25.0-35.0) pg MCHC 35.4 (31.0-37.0) g/dl RDW 15.5 H (11.5-14.5) % Plt Count 356 (120.0-450.0) 10^3/uL MPV 10.8 (7.0-11.0) fl Gran % (50.0-68.0) % Lymph % (Auto) (22.0-35.0) % [place] % (Auto) (1.0-6.0) % Eos % (Auto) (1.5-5.0) % Baso % (Auto) (0.0-3.0) % Gran # (1.4-6.5) Lymph # (1.2-3.4) Marin # (0.1-0.6) Eos # (0.0-0.7) Baso # (0.0-2.0) K/mm3 Neutrophils % (Manual) 85 H (50.0-70.0) % Lymphocytes % (Manual) 7 L (22.0-35.0) % Monocytes % (Manual) 7 H (1.0-6.0) % Eosinophils % (Manual) 1 (0.0-3.0) % Platelet Evaluation Normal (NORMAL) Sodium 133 (132-148) mmol/L Potassium 4.8 (3.6-5.0) mmol/L Chloride 100 (98-107) mmol/L Carbon Dioxide 21 (21-33) mmol/L Anion Gap 17 (10-20) BUN 52 H (7-21) mg/dL Creatinine 3.3 H (0.5-1.4) mg/dL Est GFR ( Amer) 16 Est GFR (Non-Af Amer) 14 POC Glucose (mg/dL) 165 H (65-110) mg/dL Random Glucose 150 H (70-110) mg/dL Calcium 7.2 L (8.4-10.5) mg/dL Total Bilirubin 0.9 (0.2-1.3) mg/dL AST 740 H (15-39) U/L ALT 305 H (7-56) U/L Alkaline Phosphatase 88 (38-133) U/L Total Creatine Kinase 08876 H (35-230) U/L CK-MB (CK-2) 79.3 H (0.0-3.6) ng/mL CK-MB (CK-2) % 0.3 L (2.5-3.0) % Total Protein 6.3 (5.8-8.3) g/dL Albumin 2.8 L (3.0-4.8) g/dL Globulin 3.5 gm/dL Albumin/Globulin Ratio 0.8 L (1.1-1.8) 06/30/16 Range/Units 11:19 WBC (4.5-11.0) 10^3/ul RBC (3.5-6.1) 10^6/uL Hgb (12.0-16.0) gm/dL Hct (36.0-48.0) % MCV (80.0-105.0) fL MCH (25.0-35.0) pg MCHC (31.0-37.0) g/dl RDW (11.5-14.5) % Plt Count (120.0-450.0) 10^3/uL MPV (7.0-11.0) fl Gran % (50.0-68.0) % Lymph % (Auto) (22.0-35.0) % [place] % (Auto) (1.0-6.0) % Eos % (Auto) (1.5-5.0) % Baso % (Auto) (0.0-3.0) % Gran # (1.4-6.5) Lymph # (1.2-3.4) Marin # (0.1-0.6) Eos # (0.0-0.7) Baso # (0.0-2.0) K/mm3 Neutrophils % (Manual) (50.0-70.0) % Lymphocytes % (Manual) (22.0-35.0) % Monocytes % (Manual) (1.0-6.0) % Eosinophils % (Manual) (0.0-3.0) % Platelet Evaluation (NORMAL) Sodium (132-148) mmol/L Potassium (3.6-5.0) mmol/L Chloride (98-107) mmol/L Carbon Dioxide (21-33) mmol/L Anion Gap (10-20) BUN (7-21) mg/dL Creatinine (0.5-1.4) mg/dL Est GFR ( Amer) Est GFR (Non-Af Amer) POC Glucose (mg/dL) 187 H (65-110) mg/dL Random Glucose (70-110) mg/dL Calcium (8.4-10.5) mg/dL Total Bilirubin (0.2-1.3) mg/dL AST (15-39) U/L ALT (7-56) U/L Alkaline Phosphatase (38-133) U/L Total Creatine Kinase (35-230) U/L CK-MB (CK-2) (0.0-3.6) ng/mL CK-MB (CK-2) % (2.5-3.0) % Total Protein (5.8-8.3) g/dL Albumin (3.0-4.8) g/dL Globulin gm/dL Albumin/Globulin Ratio (1.1-1.8) Laboratory Results - last 24 hr 06/30/16 06/30/16 06/30/16 11:19 16:06 17:00 WBC 20.1 H RBC 3.73 Hgb 12.1 Hct 34.2 L MCV 91.7 MCH 32.4 MCHC 35.4 RDW 15.5 H Plt Count 356 MPV 10.8 Gran % Lymph % (Auto) Marin % (Auto) Eos % (Auto) Baso % (Auto) Gran # Lymph # [place] # Eos # Baso # Neutrophils % (Manual) 85 H Lymphocytes % (Manual) 7 L Monocytes % (Manual) 7 H Eosinophils % (Manual) 1 Platelet Evaluation Normal Sodium Potassium Chloride Carbon Dioxide Anion Gap BUN Creatinine Est GFR ( Amer) Est GFR (Non-Af Amer) POC Glucose (mg/dL) 187 H 165 H Random Glucose Calcium Total Bilirubin AST ALT Alkaline Phosphatase Total Creatine Kinase CK-MB (CK-2) CK-MB (CK-2) % Total Protein Albumin Globulin Albumin/Globulin Ratio 06/30/16 06/30/16 06/30/16 17:00 21:20 22:20 WBC 22.3 H RBC 3.38 L Hgb 10.8 L Hct 31.3 L MCV 92.6 MCH 32.0 MCHC 34.5 RDW 14.5 Plt Count 279 MPV 9.9 Gran % Lymph % (Auto) Marin % (Auto) Eos % (Auto) Baso % (Auto) Gran # Lymph # [place] # Eos # Baso # Neutrophils % (Manual) 89 H Lymphocytes % (Manual) 6 L Monocytes % (Manual) 4 Eosinophils % (Manual) 1 Platelet Evaluation Sodium 133 Potassium 4.8 Chloride 100 Carbon Dioxide 21 Anion Gap 17 BUN 52 H Creatinine 3.3 H Est GFR ( Amer) 16 Est GFR (Non-Af Amer) 14 POC Glucose (mg/dL) 131 H Random Glucose 150 H Calcium 7.2 L Total Bilirubin 0.9 AST 740 H ALT 305 H Alkaline Phosphatase 88 Total Creatine Kinase 15010 H CK-MB (CK-2) 79.3 H CK-MB (CK-2) % 0.3 L Total Protein 6.3 Albumin 2.8 L Globulin 3.5 Albumin/Globulin Ratio 0.8 L 06/30/16 07/01/16 07/01/16 22:20 04:30 04:30 WBC 23.9 H RBC 3.34 L Hgb 10.5 L Hct 31.0 L MCV 92.8 MCH 31.4 MCHC 33.9 RDW 14.7 H Plt Count 292 MPV 10.4 Gran % 88.8 H Lymph % (Auto) 4.9 L [place] % (Auto) 6.3 H Eos % (Auto) 0.0 L Baso % (Auto) 0.0 Gran # 21.21 H Lymph # 1.2 Marin # 1.5 H Eos # 0.0 Baso # 0.01 Neutrophils % (Manual) Lymphocytes % (Manual) Monocytes % (Manual) Eosinophils % (Manual) Platelet Evaluation Sodium 134 135 Potassium 4.5 4.6 Chloride 103 104 Carbon Dioxide 20 L 19 L Anion Gap 16 17 BUN 53 H 52 H Creatinine 3.5 H 3.5 H Est GFR ( Amer) 15 15 Est GFR (Non-Af Amer) 13 13 POC Glucose (mg/dL) Random Glucose 123 H 121 H Calcium 6.7 L* 6.8 L* Total Bilirubin 0.7 0.7 AST 660 H 595 H ALT 267 H 241 H Alkaline Phosphatase 81 86 Total Creatine Kinase 55292 H 21447 H CK-MB (CK-2) 52.8 H 40.0 H CK-MB (CK-2) % 0.3 L 0.3 L Total Protein 5.7 L 5.8 Albumin 2.4 L 2.5 L Globulin 3.3 3.3 Albumin/Globulin Ratio 0.7 L 0.8 L 07/01/16 07/01/16 07/01/16 07:39 09:30 09:30 WBC 23.0 H RBC 3.28 L Hgb 10.4 L Hct 30.6 L MCV 93.3 MCH 31.7 MCHC 34.0 RDW 14.8 H Plt Count 274 MPV 9.8 Gran % 88.4 H Lymph % (Auto) 5.1 L [place] % (Auto) 6.3 H Eos % (Auto) 0.2 L Baso % (Auto) 0.0 Gran # 20.31 H Lymph # 1.2 Marin # 1.4 H Eos # 0.0 Baso # 0.01 Neutrophils % (Manual) Lymphocytes % (Manual) Monocytes % (Manual) Eosinophils % (Manual) Platelet Evaluation Sodium 136 Potassium 4.5 Chloride 105 Carbon Dioxide 19 L Anion Gap 17 BUN 53 H Creatinine 3.7 H Est GFR ( Amer) 14 Est GFR (Non-Af Amer) 12 POC Glucose (mg/dL) 131 H Random Glucose 111 H Calcium 6.8 L* Total Bilirubin 0.6 AST 584 H ALT 240 H Alkaline Phosphatase 87 Total Creatine Kinase CK-MB (CK-2) CK-MB (CK-2) % Total Protein 5.7 L Albumin 2.5 L Globulin 3.3 Albumin/Globulin Ratio 0.8 L 07/01/16 12:18 WBC RBC Hgb Hct MCV MCH MCHC RDW Plt Count MPV Gran % Lymph % (Auto) [place] % (Auto) Eos % (Auto) Baso % (Auto) Gran # Lymph # [place] # Eos # Baso # Neutrophils % (Manual) Lymphocytes % (Manual) Monocytes % (Manual) Eosinophils % (Manual) Platelet Evaluation Sodium Potassium Chloride Carbon Dioxide Anion Gap BUN Creatinine Est GFR ( Amer) Est GFR (Non-Af Amer) POC Glucose (mg/dL) 102 Random Glucose Calcium Total Bilirubin AST ALT Alkaline Phosphatase Total Creatine Kinase CK-MB (CK-2) CK-MB (CK-2) % Total Protein Albumin Globulin Albumin/Globulin Ratio Fingerstick Blood Sugar Results: 131 Assessment/Plan - Assessment and Plan (Free Text) Plan: 75 y/o F with PMH of CHF, DM, TIA, and hypothyroidism presents with severe sepsis secondary to acute cholecystitis in the setting of rhabdomyolysis complicated by acute kidney injury and transaminitis along with right arm paralysis. Today, IVF will be stopped as the patient is in ATN. . Transaminitis likely secondary to rhabdomyolysis and will continue trend LFT's and CK. HIDA scan showed no visualization of the gallbaldder indicating likely acute cholecystitis. Pt refused MRCP yesterday, but will repeat today with sedation beforehand. In regards to her right arm paralysis, pt will be given supportive measures and management will be as per neurology. Neuro: AAOx3 Right arm paralysis, not improved Supportive therapy for right arm Cardio: Hemodynamically stable Goal MAP >65 Pulm: Maintain O2 sat >90% NC @ 2L Monitor for respiratory distress GI: NPO NS decreased to 75 cc MRCP ordered Surgery, Dr. Elias following, no intervention at this time GI following, Dr. Perla Carroll: Maintain euglycemia, target glucose between 140-180 ISS Nephro: DIMITRY, creatinine increasing NS @ 75 cc Oliguric, 50 cc output overnight Albumin and lasix given as per primary care team Monitor urine output Dr. Ron consulted, recommends stopping fluid. Pt may be need temporary dialysis soon Heme/ID: Afebrile, leukocytosis stable Continue Merrem and Linezolid NS @ 75 cc Blood, urine, and stool cultures negative at this time PPX: Protonix Zofran SCDs Seen, reviewed, and discussed with attending Daina PGY-1 <Delvin Bains - Last Filed: 07/02/16 15:39> CCU Objective - Vital Signs / Intake & Output Vital Signs (Last 4 hours): Vital Signs Temp 07/02/16 12:23 98.4 F Intake and Output (Last 8hrs): Intake & Output 07/02/16 07/02/16 07/02/16 06:59 14:59 22:59 Intake Total 500 Output Total 400 Balance 100 Intake: IV 500 Left Hand 500 Oral 0 Output: Urine 400 Urethral (Briones) 400 Other: Voiding Method Indwelling Catheter # Bowel Movements 1 - Medications Active Medications: Active Medications Generic Name Dose Route Start Last Admin Trade Name Freq PRN Reason Stop Dose Admin Albumin Human 25 gm 07/01/16 10:00 07/02/16 09:33 Albumin Human 25% (25 Gm/100 Ml) IV 07/03/16 23:59 Not Given BID IAIN Albuterol Sulfate 2.5 mg 07/02/16 14:00 07/02/16 13:07 Albuterol 0.5% Inhal Lorri (2.5 Mg/0.5 Ml) Ud IH 2.5 mg [id number] IAIN Administration Albuterol Sulfate 2.5 mg 07/02/16 09:01 Albuterol 0.5% Inhal Lorri (2.5 Mg/0.5 Ml) Ud IH Q3 PRN Shortness of Breath Meropenem 1g/NS 100mL IVPB 100 mls @ 100 mls/hr 06/30/16 06:30 07/02/16 09:02 Meropenem 1g/Ns 100ml Ivpb IVPB 07/07/16 06:31 100 mls/hr Q12 IAIN Administration Protocol Insulin Human Lispro 0 units 06/30/16 11:30 07/02/16 12:10 Humalog Low SC Not Given ACHS IAIN Protocol Levothyroxine Sodium 75 mcg 07/01/16 07:30 07/02/16 08:18 Synthroid PO 75 mcg ACB IAIN Administration Nystatin 0 gm 06/30/16 05:00 07/01/16 18:45 Nystop Topical Powder TOP 1 applic BID IAIN Administration Ondansetron HCl 4 mg 06/29/16 22:58 06/30/16 12:15 Zofran Inj IVP 4 mg Q6H PRN Administration Nausea/Vomiting Pantoprazole Sodium 40 mg 06/30/16 10:00 07/02/16 09:03 Protonix Inj IVP 40 mg DAILY IAIN Administration - Patient Studies Lab Studies: Lab Studies 07/02/16 07/02/16 07/02/16 Range/Units 11:00 11:00 05:30 WBC (4.5-11.0) 10^3/ul RBC (3.5-6.1) 10^6/uL Hgb (12.0-16.0) gm/dL Hct (36.0-48.0) % MCV (80.0-105.0) fL MCH (25.0-35.0) pg MCHC (31.0-37.0) g/dl RDW (11.5-14.5) % Plt Count (120.0-450.0) 10^3/uL MPV (7.0-11.0) fl Gran % (50.0-68.0) % Lymph % (Auto) (22.0-35.0) % [place] % (Auto) (1.0-6.0) % Eos % (Auto) (1.5-5.0) % Baso % (Auto) (0.0-3.0) % Gran # (1.4-6.5) Lymph # (1.2-3.4) [place] # (0.1-0.6) Eos # (0.0-0.7) Baso # (0.0-2.0) K/mm3 Neutrophils % (Manual) (50.0-70.0) % Band Neutrophils % (0-2) % Lymphocytes % (Manual) (22.0-35.0) % Monocytes % (Manual) (1.0-6.0) % Eosinophils % (Manual) (0.0-3.0) % Platelet Evaluation (NORMAL) PT 10.4 (9.9-11.8) Seconds INR 0.96 (0.93-1.08) APTT 39.0 H (23.7-30.8) Seconds Sodium Cancelled (132-148) mmol/L Potassium Cancelled (3.6-5.0) mmol/L Chloride Cancelled (98-107) mmol/L Carbon Dioxide Cancelled (21-33) mmol/L Anion Gap Cancelled (10-20) BUN Cancelled (7-21) mg/dL Creatinine (0.5-1.4) mg/dL Est GFR ( Amer) Cancelled Est GFR (Non-Af Amer) Cancelled Random Glucose Cancelled (70-110) mg/dL Calcium Cancelled (8.4-10.5) mg/dL Phosphorus (2.5-4.5) mg/dL Total Bilirubin Cancelled (0.2-1.3) mg/dL AST Cancelled (15-39) U/L ALT Cancelled (7-56) U/L Alkaline Phosphatase Cancelled (38-133) U/L Total Creatine Kinase 9765 H (35-230) U/L CK-MB (CK-2) 15.1 H (0.0-3.6) ng/mL CK-MB (CK-2) % 0.2 L (2.5-3.0) % Total Protein Cancelled (5.8-8.3) g/dL Albumin Cancelled (3.0-4.8) g/dL Globulin Cancelled gm/dL Albumin/Globulin Ratio Cancelled (1.1-1.8) 07/02/16 07/02/16 07/01/16 Range/Units 05:30 05:30 21:54 WBC 24.9 H (4.5-11.0) 10^3/ul RBC 2.90 L (3.5-6.1) 10^6/uL Hgb 9.1 L (12.0-16.0) gm/dL Hct 27.0 L (36.0-48.0) % MCV 93.1 (80.0-105.0) fL MCH 31.4 (25.0-35.0) pg MCHC 33.7 (31.0-37.0) g/dl RDW 15.1 H (11.5-14.5) % Plt Count 283 (120.0-450.0) 10^3/uL MPV 9.5 (7.0-11.0) fl Gran % (50.0-68.0) % Lymph % (Auto) (22.0-35.0) % [place] % (Auto) (1.0-6.0) % Eos % (Auto) (1.5-5.0) % Baso % (Auto) (0.0-3.0) % Gran # (1.4-6.5) Lymph # (1.2-3.4) [place] # (0.1-0.6) Eos # (0.0-0.7) Baso # (0.0-2.0) K/mm3 Neutrophils % (Manual) 85 H (50.0-70.0) % Band Neutrophils % 4 H (0-2) % Lymphocytes % (Manual) 5 L (22.0-35.0) % Monocytes % (Manual) 5 (1.0-6.0) % Eosinophils % (Manual) 1 (0.0-3.0) % Platelet Evaluation Normal (NORMAL) PT (9.9-11.8) Seconds INR (0.93-1.08) APTT (23.7-30.8) Seconds Sodium 136 135 (132-148) mmol/L Potassium 4.4 4.3 (3.6-5.0) mmol/L Chloride 104 103 (98-107) mmol/L Carbon Dioxide 19 L 20 L (21-33) mmol/L Anion Gap 17 16 (10-20) BUN 58 H 55 H (7-21) mg/dL Creatinine 4.2 H 4.1 H (0.5-1.4) mg/dL Est GFR ( Amer) 12 13 Est GFR (Non-Af Amer) 10 11 Random Glucose 93 108 (70-110) mg/dL Calcium 7.4 L 7.1 L (8.4-10.5) mg/dL Phosphorus 6.9 H (2.5-4.5) mg/dL Total Bilirubin 0.7 0.8 (0.2-1.3) mg/dL AST 403 H 437 H (15-39) U/L ALT 184 H 207 H (7-56) U/L Alkaline Phosphatase 91 81 (38-133) U/L Total Creatine Kinase 26751 H (35-230) U/L CK-MB (CK-2) 24.2 H (0.0-3.6) ng/mL CK-MB (CK-2) % 0.2 L (2.5-3.0) % Total Protein 6.2 6.4 (5.8-8.3) g/dL Albumin 3.1 3.0 (3.0-4.8) g/dL Globulin 3.1 3.3 gm/dL Albumin/Globulin Ratio 1.0 L 0.9 L (1.1-1.8) 07/01/16 Range/Units 21:54 WBC 22.4 H (4.5-11.0) 10^3/ul RBC 2.91 L (3.5-6.1) 10^6/uL Hgb 9.2 L (12.0-16.0) gm/dL Hct 27.1 L (36.0-48.0) % MCV 93.1 (80.0-105.0) fL MCH 31.6 (25.0-35.0) pg MCHC 33.9 (31.0-37.0) g/dl RDW 14.9 H (11.5-14.5) % Plt Count 270 (120.0-450.0) 10^3/uL MPV 9.2 (7.0-11.0) fl Gran % 89.6 H (50.0-68.0) % Lymph % (Auto) 4.5 L (22.0-35.0) % [place] % (Auto) 5.3 (1.0-6.0) % Eos % (Auto) 0.6 L (1.5-5.0) % Baso % (Auto) 0.0 (0.0-3.0) % Gran # 20.09 H (1.4-6.5) Lymph # 1.0 L (1.2-3.4) [place] # 1.2 H (0.1-0.6) Eos # 0.1 (0.0-0.7) Baso # 0.00 (0.0-2.0) K/mm3 Neutrophils % (Manual) (50.0-70.0) % Band Neutrophils % (0-2) % Lymphocytes % (Manual) (22.0-35.0) % Monocytes % (Manual) (1.0-6.0) % Eosinophils % (Manual) (0.0-3.0) % Platelet Evaluation (NORMAL) PT (9.9-11.8) Seconds INR (0.93-1.08) APTT (23.7-30.8) Seconds Sodium (132-148) mmol/L Potassium (3.6-5.0) mmol/L Chloride (98-107) mmol/L Carbon Dioxide (21-33) mmol/L Anion Gap (10-20) BUN (7-21) mg/dL Creatinine (0.5-1.4) mg/dL Est GFR ( Amer) Est GFR (Non-Af Amer) Random Glucose (70-110) mg/dL Calcium (8.4-10.5) mg/dL Phosphorus (2.5-4.5) mg/dL Total Bilirubin (0.2-1.3) mg/dL AST (15-39) U/L ALT (7-56) U/L Alkaline Phosphatase (38-133) U/L Total Creatine Kinase (35-230) U/L CK-MB (CK-2) (0.0-3.6) ng/mL CK-MB (CK-2) % (2.5-3.0) % Total Protein (5.8-8.3) g/dL Albumin (3.0-4.8) g/dL Globulin gm/dL Albumin/Globulin Ratio (1.1-1.8) Laboratory Results - last 24 hr 07/01/16 07/01/16 07/02/16 21:54 21:54 05:30 WBC 22.4 H 24.9 H RBC 2.91 L 2.90 L Hgb 9.2 L 9.1 L Hct 27.1 L 27.0 L MCV 93.1 93.1 MCH 31.6 31.4 MCHC 33.9 33.7 RDW 14.9 H 15.1 H Plt Count 270 283 MPV 9.2 9.5 Gran % 89.6 H Lymph % (Auto) 4.5 L [place] % (Auto) 5.3 Eos % (Auto) 0.6 L Baso % (Auto) 0.0 Gran # 20.09 H Lymph # 1.0 L [place] # 1.2 H Eos # 0.1 Baso # 0.00 Neutrophils % (Manual) 85 H Band Neutrophils % 4 H Lymphocytes % (Manual) 5 L Monocytes % (Manual) 5 Eosinophils % (Manual) 1 Platelet Evaluation Normal PT INR APTT Sodium 135 Potassium 4.3 Chloride 103 Carbon Dioxide 20 L Anion Gap 16 BUN 55 H Creatinine 4.1 H Est GFR ( Amer) 13 Est GFR (Non-Af Amer) 11 Random Glucose 108 Calcium 7.1 L Phosphorus Total Bilirubin 0.8 AST 437 H ALT 207 H Alkaline Phosphatase 81 Total Creatine Kinase 55987 H CK-MB (CK-2) 24.2 H CK-MB (CK-2) % 0.2 L Total Protein 6.4 Albumin 3.0 Globulin 3.3 Albumin/Globulin Ratio 0.9 L 07/02/16 07/02/16 07/02/16 05:30 05:30 11:00 WBC RBC Hgb Hct MCV MCH MCHC RDW Plt Count MPV Gran % Lymph % (Auto) [place] % (Auto) Eos % (Auto) Baso % (Auto) Gran # Lymph # [place] # Eos # Baso # Neutrophils % (Manual) Band Neutrophils % Lymphocytes % (Manual) Monocytes % (Manual) Eosinophils % (Manual) Platelet Evaluation PT 10.4 INR 0.96 APTT 39.0 H Sodium 136 Potassium 4.4 Chloride 104 Carbon Dioxide 19 L Anion Gap 17 BUN 58 H Creatinine 4.2 H Est GFR ( Amer) 12 Est GFR (Non-Af Amer) 10 Random Glucose 93 Calcium 7.4 L Phosphorus 6.9 H Total Bilirubin 0.7 AST 403 H ALT 184 H Alkaline Phosphatase 91 Total Creatine Kinase CK-MB (CK-2) CK-MB (CK-2) % Total Protein 6.2 Albumin 3.1 Globulin 3.1 Albumin/Globulin Ratio 1.0 L 07/02/16 11:00 WBC RBC Hgb Hct MCV MCH MCHC RDW Plt Count MPV Gran % Lymph % (Auto) [place] % (Auto) Eos % (Auto) Baso % (Auto) Gran # Lymph # [place] # Eos # Baso # Neutrophils % (Manual) Band Neutrophils % Lymphocytes % (Manual) Monocytes % (Manual) Eosinophils % (Manual) Platelet Evaluation PT INR APTT Sodium Cancelled Potassium Cancelled Chloride Cancelled Carbon Dioxide Cancelled Anion Gap Cancelled BUN Cancelled Creatinine Est GFR ( Amer) Cancelled Est GFR (Non-Af Amer) Cancelled Random Glucose Cancelled Calcium Cancelled Phosphorus Total Bilirubin Cancelled AST Cancelled ALT Cancelled Alkaline Phosphatase Cancelled Total Creatine Kinase 9765 H CK-MB (CK-2) 15.1 H CK-MB (CK-2) % 0.2 L Total Protein Cancelled Albumin Cancelled Globulin Cancelled Albumin/Globulin Ratio Cancelled Critical Care Progress Note - Nutrition Nutrition: Nutrition Category Date Time Status Liquid Diet [DIET] Diets 07/01/16 Lunch Ordered NPO Diet [DIET] Diets 07/02/16 Dinner Ordered Addendum Addendum: 07/02/16 15:34 meds/labs reviewed, for A/P please see Dr. Bains note
[2016-07-01] MEDS: Levothyroxine 75 MCG TAB PO SCH (14:11)
[2016-07-01 14:28] LABS: ADD MANUAL DIFF? NO
--- NOTE | 2016-07-01 14:34 | CP.PCM.PN ---
<Luis Conde - Last Filed: 07/01/16 18:11> Subjective - Date & Time of Evaluation Date of Evaluation: 07/01/16 Time of Evaluation: 14:30 - Subjective Subjective: Medicine progress note - Luis Conde PGY1 Patient seen and examined at bedside this morning. Patient only put out 50cc of urine overnight. Discussed current medical management plan with patient at bedside. Denied overnight events or new complaints. Objective - Vital Signs/Intake and Output Vital Signs (last 24 hours): Temp Pulse Resp BP Pulse Ox 98.2 F 99 H 25 H 114/72 93 L 07/01/16 00:00 07/01/16 12:30 07/01/16 12:30 07/01/16 14:15 07/01/16 12:30 - Medications Medications: Current Medications Albumin Human (Albumin Human 25% (25 Gm/100 Ml)) 25 gm IV BID IAIN Stop: 07/03/16 23:59 Last Admin: 07/01/16 10:58 Dose: 25 gm Meropenem 1g/NS 100mL IVPB (Meropenem 1g/Ns 100ml Ivpb) 100 mls @ 100 mls/hr IVPB Q12 IAIN PRN Reason: Protocol Stop: 07/07/16 06:31 Last Admin: 07/01/16 10:42 Dose: 100 mls/hr Linezolid (Zyvox 600mg/300ml D5w) 300 mls @ 200 mls/hr IVPB Q12 IAIN PRN Reason: Protocol Stop: 07/07/16 06:31 Last Admin: 07/01/16 10:47 Dose: 200 mls/hr Sodium Bicarbonate 50 meq/ (Dextrose) 1,050 mls @ 200 mls/hr IVP .Q5H15M ONE Stop: 07/01/16 14:44 Last Admin: 07/01/16 10:58 Dose: Not Given Insulin Human Lispro (Humalog Low) 0 units SC ACHS IAIN PRN Reason: Protocol Last Admin: 07/01/16 12:15 Dose: Not Given Levothyroxine Sodium (Synthroid) 75 mcg PO ACB IAIN Last Admin: 07/01/16 14:11 Dose: 75 mcg Nystatin (Nystop Topical Powder) 0 gm TOP BID IAIN Last Admin: 06/30/16 04:46 Dose: 1 applic Ondansetron HCl (Zofran Inj) 4 mg IVP Q6H PRN PRN Reason: Nausea/Vomiting Last Admin: 06/30/16 12:15 Dose: 4 mg Pantoprazole Sodium (Protonix Inj) 40 mg IVP DAILY IAIN Last Admin: 07/01/16 10:50 Dose: 40 mg - Labs Labs: 07/01/16 09:30 07/01/16 09:30 PT 11.2 Seconds (9.9-11.8) 06/29/16 12:56 INR 1.04 (0.93-1.08) 06/29/16 12:56 APTT 46.7 Seconds (23.7-30.8) H 06/29/16 12:56 - Constitutional Appears: Non-toxic, No Acute Distress - Head Exam Head Exam: ATRAUMATIC, NORMAL INSPECTION, NORMOCEPHALIC - Eye Exam Eye Exam: EOMI, PERRL - ENT Exam ENT Exam: Mucous Membranes Moist - Neck Exam Neck Exam: Normal Inspection - Respiratory Exam Respiratory Exam: Decreased Breath Sounds. absent: Rales, Rhonchi, Wheezes - Cardiovascular Exam Cardiovascular Exam: RRR, +S1, +S2. absent: Clicks, Diastolic murmur, Rubs, Murmur - GI/Abdominal Exam GI & Abdominal Exam: Soft. absent: Firm, Guarding, Rigid, Tenderness, Rebound - Extremities Exam Additional comments: right upper extremity motor strength 0/5, no sensation from the shoulder down left upper extremity motor strength 5/5 bilateral lower extremity motor strength 5/5 1+ pedal edema - Neurological Exam Neurological Exam: Alert, Awake, Oriented x3 - Psychiatric Exam Psychiatric exam: Normal Affect, Normal Mood - Skin Skin Exam: Dry, Intact, Warm Additional comments: bilateral lower extremity chronic venous stasis Assessment and Plan - Assessment and Plan (Free Text) Plan: 75yo Female with history of CHF, DM2, TIA, hypothyroidism, chronic LE edema, history of DVT and CBD stones admitted to the ICU for rhabdomyolysis, Acute Kidney injury, right arm paralysis and likely acute cholecystitis 1. Rhabdomyolysis -Patient received 4 liters of fluid in the ED -Patient started on IV albumin 25gm q12h today -Given one dose of 120mg IV lasix today post albumin -Monitor I's and O's -Daily weight -Nephrology consulted - Dr. Ron -Will continue to monitor renal function 2. Right upper extremity paralysis -CT RUE reviewed; Did not reveal any mass or hematoma involving the brachial plexus, however soft tissue density along plexus possible -RUE sensation/motor function without improvement since admission -RUE venous duplex ordered to rule out DVT -Hand surgeon consulted - Dr. Devries 3. CBD dilatation -HIDA scan reviewed; consistent with acute cholecystitis -Abdominal US reviewed; CBD measures 8.6mm, cholelithiasis, gallbladder lesion -CT abd/pelvis reviewed -Continue meropenem and linezolid as per ID recommendations -ID consulted - Dr. Banks -Surgery consulted - Dr. Elias -GI consulted - Dr. Duncan 4. s/p fall -Cervical, maxillofacial, shoulder and hip/pelvis x-rays negative -CT Head negative for acute intracranial pathology 5. DM type 2 -Humalog low dose ISS -Patient currently NPO -Fingersticks ACHS 6. GI/DVT Prophylaxis -Protonix/SCD's Patient seen and case discussed with attending, Dr. Porter <Mark Porter - Last Filed: 08/08/16 08:44> Objective - Vital Signs/Intake and Output Vital Signs (last 24 hours): Temp Pulse Resp BP Pulse Ox 98.4 F 82 22 147/58 L 94 L 07/13/16 08:15 07/13/16 08:15 07/13/16 08:15 07/13/16 08:15 07/13/16 08:15 - Labs Labs: 07/13/16 06:40 07/13/16 06:40 PT 10.4 Seconds (9.9-11.8) 07/02/16 05:30 INR 0.96 (0.93-1.08) 07/02/16 05:30 APTT 39.0 Seconds (23.7-30.8) H 07/02/16 11:00 Attending/Attestation - Attestation I have personally seen and examined this patient.: Yes I have fully participated in the care of the patient.: Yes I have reviewed all pertinent clinical information, including history, physical exam and plan: Yes Notes (Text): 08/08/16 08:44 Medical record note made by the resident after discussion with my direction and input after the patient was personally seen and examined by me. I have reviewed the chart and agree that the record reflects my personal performance of history, physical, data review and course for the patient that I have planned.
[2016-07-01 14:38] LABS: BASO # 0.01 K/mm3 (0.0-2.0); EOS # 0.1 (0.0-0.7); EOS % 0.3 % (1.5-5.0); GRAN # 19.82 (1.4-6.5); GRAN % 89.2 % (50.0-68.0); HEMATOCRIT 27.3 % (36.0-48.0); LYMPH % 4.7 % (22.0-35.0); MEAN CELL VOLUME 92.5 fL (80.0-105.0); MEAN CORPUSCULAR HEMOGLOBIN 32.2 pg (25.0-35.0); MEAN CORPUSCULAR HGB CONC 34.8 g/dl (31.0-37.0); MEAN PLATELET VOLUME 9.4 fl (7.0-11.0); MONO # 1.3 (0.1-0.6); MONO % 5.8 % (1.0-6.0); PLATELET COUNT 266 10^3/uL (120.0-450.0); RED CELL DISTRIBUTION WIDTH 14.7 % (11.5-14.5); WHITE BLOOD COUNT 22.2 10^3/ul (4.5-11.0)
[2016-07-01 14:40] LABS: ALB/GLOB RATIO 0.8 (1.1-1.8); BILIRUBIN,TOTAL 0.7 mg/dL (0.2-1.3); POTASSIUM 4.3 mmol/L (3.6-5.0); TOTAL PROTEIN 5.8 g/dL (5.8-8.3)
--- NOTE | 2016-07-01 15:06 | US ---
PROCEDURE: Right upper extremity venous US CLINICAL HISTORY: Arm pain and swelling Evaluate for deep venous thrombosis. PHYSICIAN(S): Nathan Cui M.D FINDINGS: The exam is limited by body habitus and The visualized rightinternal jugular vein is sonographically normal and compressible. No evidence of obstruction or thrombus is seen. The visualized segments of the right subclavian vein are patent with normal waveforms. No sonographic evidence of obstruction or thrombosis is seen. The visualized deep venous system of the proximal right upper extremity is sonographically normal and compressible. IMPRESSION: 1. No sonographic evidence for deep venous thrombosis in the visualized segments of the right upper extremity. 2. Limited study
[2016-07-01] MEDS: Nystatin 100,000 Units/gm Topical Pow(15 gm) TOP SCH ×2 (17:42→18:45)
--- NOTE | 2016-07-01 21:18 | PN ---
DATE: 07/01/2016 A 75-year-old female with past medical history of hypertension, diabetes, hypothyroidism, cholelithia sis and previous right lower extremity DVT, admitted with severe rhabdomyolysis. Nephrology followin g patient for acute renal failure. The patient reports feeling well. Denies any shortness of breath. Denies any abdominal pain. Still with no sensation in right arm. PHYSICAL EXAMINATION: VITAL SIGNS: This morning, blood pressure 127/84, heart rate 96, respirations 9, O2 sat 95% on 3 lit ers oxygen via nasal cannula. GENERAL: No distress, speaking coherently in full sentences. HEENT: Moist mucous membranes, nonicteric, no overt hearing deficit. CHEST: Minimal basilar rales, otherwise clear to auscultation bilaterally. No rhonchi, no wheezes, no respiratory distress. CARDIOVASCULAR: S1, S2 normal, no murmurs, no gallops, no rubs. GASTROINTESTINAL: Abdomen soft, nontender, nondistended. NEUROLOGIC: No sensation in right arm, unable to move right arm. PSYCHIATRIC: Normal mood, normal affect. EXTREMITIES: Fingers warm to touch. Marked bilateral lower leg edema. LABORATORY DATA: This morning, CBC: WBC 23.0, hemoglobin 10.4, hematocrit 30.6, platelets 274. Aria urbano: Sodium 136, potassium 4.5, chloride 105, bicarbonate 19, BUN 53, creatinine 3.7, glucose 111 , calcium 6.8. AST 584, ALT 240, albumin 2.5. ASSESSMENT: 1. Acute renal failure, acute kidney injury on chronic kidney disease 3, oliguric renal failure with acute tubular necrosis secondary to severe rhabdomyolysis, possibly exacerbated with low normal bloo d pressure in the setting of systemic inflammatory response syndrome/sepsis. Only 50 mL urine output overnight; however, increased urine output during the day, although still remains oliguric. Serum cr eatinine relatively stable with only mild increase since last night and may signify that renal recove ry is close. No hyperkalemia. Mild increased anion gap, metabolic acidosis. No objection to contin ued intravascular volume replenishment with either IV fluids or albumin in the setting of sepsis; how ever, this will not alter the course of patient's oliguric acute tubular necrosis at this point. Main rule for diuretics would be in the setting of impending respiratory failure and to help prevent andrea ent from being intubated; otherwise, this also will not change the course of acute tubular necrosis. No indication for renal replacement therapy currently. Continue to monitor respiratory status and e lectrolytes. 2. Rhabdomyolysis secondary to right arm muscle injury. CK level continues to trend downward and ri ght radial pulse is significantly stronger than it was yesterday. Mild hypercalcemia when corrected for hypoalbuminemia due to the rhabdo. Would avoid aggressive calcium replenishment as sequestered c alcium in the affected muscle will start to be released as muscle recovery occurs. Also, calcium can complex with increased phosphorus and deposit in vasculature and soft tissue. Would replenish calci um only if symptomatic or having EKG changes. 3. Systemic inflammatory response syndrome/sepsis, still with marked leukocytosis with hida scan sug gestive of cholecystitis. The patient also underwent MRCP today. Awaiting results. The patient for possible cholecystectomy tomorrow. Currently on meropenem 1 gram q. 12 hours. Consider changing do se to q. 24 hours in the setting of severe renal failure. 4. Metabolic acidosis. Relatively mild. Would avoid giving bicarbonate-containing fluids as this w ill worsen the hypocalcemia further. 5. Anemia. Hemoglobin with mild drop, possibly dilutional. Check iron studies. Timmy Ron MD cc: [id number] TT: 07/01/2016 21:17:47 Confirmation # [id number] Dictation # [id number] maksim
[2016-07-01 21:55] LABS: ADD MANUAL DIFF? NO
[2016-07-01 22:00] LABS: EOS # 0.1 (0.0-0.7); EOS % 0.6 % (1.5-5.0); GRAN # 20.09 (1.4-6.5); GRAN % 89.6 % (50.0-68.0); HEMATOCRIT 27.1 % (36.0-48.0); LYMPH % 4.5 % (22.0-35.0); MEAN CELL VOLUME 93.1 fL (80.0-105.0); MEAN CORPUSCULAR HEMOGLOBIN 31.6 pg (25.0-35.0); MEAN CORPUSCULAR HGB CONC 33.9 g/dl (31.0-37.0); MEAN PLATELET VOLUME 9.2 fl (7.0-11.0); MONO # 1.2 (0.1-0.6); MONO % 5.3 % (1.0-6.0); PLATELET COUNT 270 10^3/uL (120.0-450.0); RED CELL DISTRIBUTION WIDTH 14.9 % (11.5-14.5); WHITE BLOOD COUNT 22.4 10^3/ul (4.5-11.0)
[2016-07-01 22:12] LABS: ALB/GLOB RATIO 0.9 (1.1-1.8); BILIRUBIN,TOTAL 0.8 mg/dL (0.2-1.3); POTASSIUM 4.3 mmol/L (3.6-5.0); TOTAL PROTEIN 6.4 g/dL (5.8-8.3)
[2016-07-01 22:18] LABS: CALCIUM 7.1 mg/dL (8.4-10.5)
[2016-07-02] MEDS: Albumin Human 25% (25 gm/100 ml) IV SCH ×3 (05:12→17:20)
[2016-07-02 05:56] LABS: MEAN CELL VOLUME 93.1 fL (80.0-105.0); MEAN CORPUSCULAR HEMOGLOBIN 31.4 pg (25.0-35.0); MEAN CORPUSCULAR HGB CONC 33.7 g/dl (31.0-37.0); MEAN PLATELET VOLUME 9.5 fl (7.0-11.0); PLATELET COUNT 283 10^3/uL (120.0-450.0); RED CELL DISTRIBUTION WIDTH 15.1 % (11.5-14.5); WHITE BLOOD COUNT 24.9 10^3/ul (4.5-11.0)
[2016-07-02 06:03] LABS: INR 0.96 (0.93-1.08)
[2016-07-02 06:11] LABS: BILIRUBIN,TOTAL 0.7 mg/dL (0.2-1.3); CALCIUM 7.4 mg/dL (8.4-10.5); POTASSIUM 4.4 mmol/L (3.6-5.0); TOTAL PROTEIN 6.2 g/dL (5.8-8.3)
[2016-07-02 06:13] LABS: ADD MANUAL DIFF? YES
[2016-07-02 06:23] LABS: PHOSPHOROUS 6.9 mg/dL (2.5-4.5)
--- NOTE | 2016-07-02 06:29 | PN ---
DATE: 07/01/2016 ADDENDUM This is an addendum to the GI progress report dictated by Sweetie Reece NP. The patient has some mini mal discomfort in the right upper quadrant area. PHYSICAL EXAMINATION: On exam, mild tenderness is present. Remains afebrile. ABDOMEN: Soft. There is mild tenderness present. IMPRESSION AND PLAN: This 75-year-old patient admitted with a fall with rhabdomyolysis. Has right _ ____ abdominal discomfort. The patient has a history of gallstones, chronically has a nonvisualized gallbladder suggestive of acute cholecystitis. The patient did have a history of CBD stone in the pa st, status post ERCP, removal of the stones and also stent placement in the past. At this present ti me, the big concern is the hemidistal biliary obstruction before doing a cholecystectomy. Detailed d iscussion we had with Dr. Elias. We discussed the patient is initially reluctant about going for M RI. I did explain to the patient the importance of the test. The patient is now agreeable. Surgica l options can be considered after the MRCP is reviewed. Thank you very much for allowing us to participate in the care of this patient. Plan is to consider MRCP. The patient is now agreeable. The patient may need . Dr. Elias will consider cholecys tectomy after reviewing the MRI. If there is distal CBD stricture or infection, we will consider ERC P and placement of a stent before the cholecystectomy. Thank you very much for allowing us to participate in the care of the patient. We will continue to c losely follow up her care and suggest further management. Kavon Duncan MD cc: [id number] TT: 07/02/2016 06:28:24 Confirmation # [id number] Dictation # [id number] millie
[2016-07-02 07:11] LABS: BAND 4 % (0-2); EOSINOPHIL 1 % (0.0-3.0); NEUTROPHIL 85 % (50.0-70.0); PLATELET ESTIMATE NORMAL (NORMAL)
--- NOTE | 2016-07-02 08:00 | PN ---
DATE: 07/01/2016 The patient seen and examined at bedside. She is comfortable. She talks full sentences. She is not in respiratory or otherwise distress. She did receive 2 mg of Ativan to treat claustrophobia when at [facility]. She did tolerate that well. She is back from [facility]. PHYSICAL EXAMINATION: VITAL SIGNS: Heart rate 95, oxygen saturation 94% on 2 liters nasal cannula, blood pressure 109/60, respiratory rate 22. HEAD AND NECK: Atraumatic. LUNGS: Clear to auscultation bilaterally. HEART: Regular rate and rhythm. S1S2 normal. ABDOMEN: Soft, nontender, nondistended. MUSCULOSKELETAL: Some chronic cellulitic changes and chronic b/l edema. SKIN: Moist. PSYCHIATRIC: The patient is alert and oriented x 3. Meds/Labs reviewed--see resident note Assessment and Plan This is 75 yo female who was admitted for severe rhabdomyolisis and pigmented nephropathy and was found to have acute cholecystitis. She initially was agressively fluid resuscitated with NS. Bicarb was withheld as serum ph was 7.4. Her renal function continued to deteriorate. I would recommend to continue with fluid resuscitation as there are no signs of respiratory distress, nor worsening of chronic edema nor substantial gas exchange abnormalities. I would not recommend loop diuretics at this point and would continue with crystalloids , not hyperoncotic colloids. Patient is scheduled for MRCP to rule out CBD stricture, if found though, may need ERCP. If ruled out, as per my conversation with Dr. Elias will go for cholecystectomy.. Abx, NPO, serial CPK, DVT/GI prophylaxis. As per Dr. Elias--no compartment syndrome, CPK and lactate trending down and good ps on right a.radialis. Neuro follow up is appreciated. All above discussed with PMD and nephrology service ccm time 40 min Delvin Bains MD cc: [id number] TT: 07/01/2016 16:38:35 Confirmation # [id number] Dictation # [id number] sn SALGADO
[2016-07-02] MEDS: Insulin Lispro (humaLOG) LOW Coverage SC SCH ×4 (08:13→21:41)
[2016-07-02] MEDS: Levothyroxine 75 MCG TAB PO SCH (08:18)
[2016-07-02] MEDS ORDERED: Albuterol 0.5% Inhal Sol (2.5 mg/0.5 ml) UD IH PRN (09:01)
[2016-07-02] MEDS: Meropenem 1g/NS 100mL IVPB 100 ML IVPB SCH ×2 (09:02→21:49)
[2016-07-02] MEDS: Linezolid 600 mg in D5W 300 ml 300 ML IVPB SCH (09:02)
[2016-07-02] MEDS: Nystatin 100,000 Units/gm Topical Pow(15 gm) TOP SCH ×2 (10:00→17:24)
--- NOTE | 2016-07-02 10:04 | CP.PCM.PN ---
Subjective - Date & Time of Evaluation Date of Evaluation: 07/02/16 Time of Evaluation: 07:30 - Subjective Subjective: Surgery Progress note. Dr. Elias Pt seen and evaluated at bedside. No acute events overnight. Patient denies any F/C. No CP/SOB. No Abd pain, No N/V/D. Still denies any motor or sensory improvement to the right upper extremity. Objective - Vital Signs/Intake and Output Vital Signs (last 24 hours): Temp Pulse Resp BP Pulse Ox 98.3 F 85 18 101/45 L 92 L 07/02/16 08:06 07/02/16 08:06 07/02/16 08:06 07/02/16 08:33 07/02/16 08:06 Intake and Output: 07/02/16 07/02/16 06:59 18:59 Intake Total 500 Output Total 400 Balance 100 - Medications Medications: Current Medications Albumin Human (Albumin Human 25% (25 Gm/100 Ml)) 25 gm IV BID IAIN Stop: 07/03/16 23:59 Last Admin: 07/02/16 09:33 Dose: Not Given Albuterol Sulfate (Albuterol 0.5% Inhal Lorri (2.5 Mg/0.5 Ml) Ud) 2.5 mg IH [id number] IAIN Albuterol Sulfate (Albuterol 0.5% Inhal Lorri (2.5 Mg/0.5 Ml) Ud) 2.5 mg IH Q3 PRN PRN Reason: Shortness of Breath Meropenem 1g/NS 100mL IVPB (Meropenem 1g/Ns 100ml Ivpb) 100 mls @ 100 mls/hr IVPB Q12 IAIN PRN Reason: Protocol Stop: 07/07/16 06:31 Last Admin: 07/02/16 09:02 Dose: 100 mls/hr Linezolid (Zyvox 600mg/300ml D5w) 300 mls @ 200 mls/hr IVPB Q12 IAIN PRN Reason: Protocol Stop: 07/07/16 06:31 Last Admin: 07/02/16 09:02 Dose: 200 mls/hr Insulin Human Lispro (Humalog Low) 0 units SC ACHS IAIN PRN Reason: Protocol Last Admin: 07/02/16 08:13 Dose: Not Given Levothyroxine Sodium (Synthroid) 75 mcg PO ACB IAIN Last Admin: 07/02/16 08:18 Dose: 75 mcg Nystatin (Nystop Topical Powder) 0 gm TOP BID [facility] Last Admin: 07/01/16 18:45 Dose: 1 applic Ondansetron HCl (Zofran Inj) 4 mg IVP Q6H PRN PRN Reason: Nausea/Vomiting Last Admin: 06/30/16 12:15 Dose: 4 mg Pantoprazole Sodium (Protonix Inj) 40 mg IVP DAILY [facility] Last Admin: 07/02/16 09:03 Dose: 40 mg - Labs Labs: 07/02/16 05:30 07/02/16 05:30 PT 10.4 Seconds (9.9-11.8) 07/02/16 05:30 INR 0.96 (0.93-1.08) 07/02/16 05:30 APTT 46.7 Seconds (23.7-30.8) H 06/29/16 12:56 - Constitutional Appears: Well, No Acute Distress - Head Exam Head Exam: ATRAUMATIC, NORMAL INSPECTION - Eye Exam Eye Exam: EOMI - ENT Exam ENT Exam: Mucous Membranes Moist - Respiratory Exam Respiratory Exam: NORMAL BREATHING PATTERN - Cardiovascular Exam Cardiovascular Exam: RRR. absent: JVD - GI/Abdominal Exam GI & Abdominal Exam: Soft. absent: Distended, Guarding, Tenderness - Extremities Exam Extremities Exam: Normal Inspection - Neurological Exam Neurological Exam: Alert, Awake, Oriented x3 - Skin Skin Exam: Dry, Intact, Normal Color, Warm Assessment and Plan - Assessment and Plan (Free Text) Assessment: 75yo F here after fall, down on right arm for many hours, being treated for Rhabdo. Hx of Biliary stent 2 years ago, since removed. Here with Nausea/ Bilious vomiting with elevated LFTs. Sepsis likely secondary to Acute cholecystitis. - VSS - T.bili now normal. LFTs trending down - ABD US - 5 x 6cm lesion in gallbladder fundus. Sludge. no wall thickening. CBD 0.7-0.86cm. - CT A/P: Distended GB, Gallstones, soft tissue mass in GB. Minimal fat stranding - HIDA - non-visualized Gallbladder. with the history of previous biliary stents, consider billiary tree stricture as well. - MRCP - 9mm CBD (slight improvement compared to prior), Gallstones, Sludge - Continue Abx as per ID - Plan for Laparoscopic Cholecystectomy with Intraoperative Cholangiogram tomorrow, 07/03. Discussed case with Dr. Curt Matta PGY1 surgery pager: [phone]
--- NOTE | 2016-07-02 10:15 | RAD ---
HISTORY: follow up COMPARISON: 06/29/2016 FINDINGS: LUNGS: Shallow lung volumes. The antral to infrahilar bronchovascular markings appear increased. There is vague diffuse increased bronchovascular marking prominence and infrahilar bilateral peribronchial thickening suggested. Pulmonary venous congestion - increased since a prior exam as well as peribronchial thickening inflammatory changes are some considerations. Left costophrenic angle is obscured as before. Left inferolateral pleural thickening and/or small pleural effusion suspect. Possible small right pleural effusion. Current study is less penetrated than before PLEURA: As above. No pneumothorax CARDIOVASCULAR: Mild cardiomegaly -unchanged OSSEOUS STRUCTURES: No significant abnormalities. VISUALIZED UPPER ABDOMEN: Normal. OTHER FINDINGS: None. IMPRESSION: Interval increase bronchovascular marking prominence with an overall diffuse hazy anatomy depiction. Interval increased pulmonary venous congestion and interval increased infrahilar peribronchial thickening are considerations. - infrahilar bibasilar mild bronchiectasis probable Mild cardiomegaly -unchanged
--- NOTE | 2016-07-02 10:22 | MRI ---
PROCEDURE: Magnetic Resonance Cholangiopancreatography HISTORY: Cholestasis COMPARISON: 04/23/2013. TECHNIQUE: Multiplanar, multisequence MR images of the abdomen were obtained, including heavily T2 weighted MRCP images of the biliary system. Rotating maximum intensity projection images of the biliary system were generated. FINDINGS: MRCP: The common bile duct is dilated with a diameter 9 mm. The common duct has slightly decreased in size compared to the previous study were it measured 12 mm. There are no stones visualized in the common duct. LIVER: Unremarkable. GALLBLADDER: The gallbladder contains a large amount of sludge and several stones. SPLEEN: Unremarkable. PANCREAS: Unremarkable. ADRENALS: Unremarkable. KIDNEYS: Multiple cysts are seen in the kidneys. AORTA: No aneurysm. ASCITES: None. OTHER FINDINGS: None. IMPRESSION: Gallstones and a large amount of sludge in the gallbladder. Moderately dilated common bile duct with no obvious stones
--- NOTE | 2016-07-02 11:09 | PN ---
DATE: 07/02/2016 Seen and examined at the bedside this morning in CCU. The patient was awake and alert. Denies any nausea, vomiting. Not much abdominal pain. No reports of any acute overnight events. The patient states she has some sensation on her right shoulder, a little bit more sensation on the right shoulder, but not on her forearm or hand. No fever or chills. VITAL SIGNS: Temperature is 98.3, blood pressure is 104/45, pulse 84, respirations 17, 96 O2 saturation. LABORATORY DATA: Her WBC is 24.9, H and H is 9.1 and hematocrit of 27.0, platelets are 283. PT is 10.4, INR is 0.96. Sodium 136, K is 4.4, BUN is 58, creatinine is 4.2. Total bilirubin is 0.7, AST 403, ALT is 184, and alkaline phosphatase is 91. This AST, ALT are improving. The patient had an MRCP. The report is pending. Chest x-ray was done this morning and it shows mild cardiomegaly that is unchanged. There is interval increase in the bronchovascular marking prominence with an overall diffuse hazy anatomy, increased pulmonary venous congestion and interval increase infrahilar peribronchial thickening. Considerations likely infrahilar, bibasal mild bronchiectasis. PHYSICAL EXAMINATION: HEENT: Sclerae are anicteric. NECK: Supple. CARDIAC: S1, S2. LUNGS: positive for breath sounds,with faint rhonci/wheezing ABDOMEN: With bowel sounds, softly obese with minimal tenderness to the right side. No rebound, guarding, or organomegaly. EXTREMITIES: He right arm, shoulder and upper arm are softer to touch. She does have some sensation, but none on her forearm or hand. ASSESSMENT: This is a 75-year-old obese female with status post fall admitted with rhabdomyolysis. She also has right arm paralysis, although she is reporting some sensation. The patient has history of gallstones with ERCP with sphincterotomy and removal of common bile duct stones. The patient is noted to have elevated LFTs. Mainly, it is the AST, ALT. The patient noted went for a HIDA scan, found acute cholecystitis. She has a right shoulder hematoma which looks better. History of diabetes mellitus, obesity, congestive heart failure and Bilateral knee replacements. PLAN: She went for MRCP yesterday. Still waiting for report to be read. Radiology file room was called. She is also on IV antibiotics of Zyvox. She is getting meropenem, is on gastrointestinal prophylaxis of Protonix and with acute kidney injury and pulmonary venous congestion and possible mild bronchiectasis. The patient is getting breathing treatments, has been started on breathing treatments. She is currently n.p.o. We will follow up the MRCP. Depending upon the results of MRCP, we will see if there is any distal CBD stricture or infection. Depending upon MRI, MRCP findings, we may consider ERCP and placement of stent before cholecystectomy. The patient was seen and case discussed with Dr. Duncan. ADDENDUM: MRCP films/report reviewed with Dr. Duncan, gallbladder with large amount of sludge and gallstones, no CBD stones, there is CBD dilation of 9mm but slightly decrease compared to previous study at 12mm. No stricture or mass is seen/noted. No ERCP planned recommend cholecystectomy with IOC. Dr. Duncan discuss with Dr. Elias and Dr. Beltran, patient, and ICU team Sweetie BUNN cc: [id number] TT: 07/02/2016 11:08:16 Confirmation # [id number] Dictation # [id number] tn MTDD
--- NOTE | 2016-07-02 11:44 | CON ---
DATE: 07/02/2016 REASON FOR CONSULTATION: Wheezing. REFERRING PHYSICIAN: Dr. Porter. History is obtained via extensive discussion with Dr. Porter and the ICU nurse. I have also reviewed the chart at length, and discussed the case with the patient at length. The patient is a 75-year-old chronically ill female, with past medical history significant for congestive heart failure, transient ischemic attack, hypertension, morbid obesity, leg cellulitis, hypothyroidism, diabetes mellitus , who presented to [facility] -- originally on 06/29/2016 -- after being found on the floor (by her neighbors). Apparently, the patient had multiple bouts of nausea and vomiting. Subsequently, she felt very dizzy and weak and fell to the floor. When the neighbors called her on the phone, and there was no answer -- the neighbors went into the apartment and found the patient. Emergency medical services was called and was transferred the patient to [facility] for additional evaluation and treatment. The patient denies shortness of breath at rest. She does have chronic mild occasional dyspnea on exertion. The patient denies cough or sputum production. The patient also denies chest pain, coughing up of blood or chest pain -- made worse with deep respirations. The patient has had low-grade temperatures during the admission. No history of chills or infectious exposure. No history of night sweats, weight loss or appetite change prior to the above events. No history of calf pains. No history of syncope or diaphoresis. No history of recent travel. REVIEW OF SYSTEMS: No history of acute urinary symptoms. No new neurologic complaints. Rest of the review of systems is negative. ALLERGIES: No known allergies. SOCIAL HISTORY: Positive for tobacco, negative for alcohol. FAMILY HISTORY: No inheritable diseases. HOME MEDICATIONS: Include vitamins, Keflex, Lipitor, Synthroid, Lasix, doxycycline, metoprolol, magnesium. PHYSICAL EXAMINATION: GENERAL: The patient is not short of breath at rest. She is not using accessory muscles for breathing. VITAL SIGNS: Temperature is 98.3, pulse 85, respirations 18, blood pressure 101 /45. Oxygen saturation on nasal cannula is 93%. HEENT: Normocephalic, +ecchymosis right facial area. NECK: No JVD. CARDIOVASCULAR: Systolic ejection murmur at the lower left sternal border. No S3 gallop. LUNGS: Decreased breath sounds at the bases. Minimal rhonchi. Minimal wheezing. EXTREMITIES: Positive for edema. No cyanosis, no clubbing. Calves are nontender to palpation. GASTROINTESTINAL: Abdomen is soft, nontender, nondistended. Bowel sounds are positive. SKIN: Reveals mild cellulitic changes on the legs(anterior aspects). NEUROLOGIC: Limited at the present time. PERTINENT LABORATORY DATA: Chest x-ray was done on 06/29/16 and reviewed. There are no acute changes found. Abdominal and pelvic CAT scan was also done on 06/29/16. There is cholelithiasis noted. There are also minimal atelectatic changes noted in the lungs. CBC: White count 24.9, hemoglobin 9.1, hematocrit 27.0, platelets of 283. Complete metabolic profile: Carbon dioxide 19, BUN 58 , creatinine 4.2, calcium 7.4, phosphorus 6.9, AST 403, ALT 184, creatinine kinase 11,640. Rest of the metabolic profile is within normal limits. Original total creatinine kinase -- 52,270. IMPRESSION: 1. Acute rhabdomyolysis. Status post fall. 2. Acute renal failure. 3. Sepsis syndrome. 4. Acute cholecystitis. 5. Anemia. 6. Mild bronchospasm. PLAN: Again, I did discuss the case with Dr. Porter and the ICU nurse at length. I have also discussed the case with the medical residents at length. As above, the patient initially presented to [facility] -- on -- after falling at home. Apparently, she had several episodes of nausea and vomiting-- and then felt very weak and dizzy -- and then fell to the floor. She was subsequently found by the neighbors who called emergency medical services. During the initial hospital workup, acute rhabdomyolysis, as well as acute renal failure were noted. Inputs by renal are noted. I have also reviewed the notes by GI and surgery. The patient does have acute cholecystitis. She is for possible surgery in the near future (discussed with nurse). I would continue with the antibiotic coverage as per infectious disease. Temperatures have now resolved. There is a persistent leukocytosis. On physical exam, there is mild bronchospasm noted. I will continue with the current nebulizer treatments-- as ordered for now. The patient has also received several doses of Lasix. A stat repeat chest x-ray has been ordered to rule out volume overload("cardiac wheezing"). I will check that when feasible. The clinical status of the patient is certainly guarded at this point in time. I will be happy to follow this patient closely with you. Thank you very much for this pulmonary consultation. Lionel Sheehan MD cc: [id number] TT: 07/02/2016 11:44:19 Confirmation # [id number] Dictation # [id number] an MTDD
--- NOTE | 2016-07-02 12:24 | CP.PCM.PN ---
<Luis Conde - Last Filed: 07/02/16 15:16> Subjective - Date & Time of Evaluation Date of Evaluation: 07/02/16 Time of Evaluation: 12:21 - Subjective Subjective: Medicine progress note - Luis Conde PGY1 Patient seen and examined at bedside this morning. No acute overnight events or new complaints. Patient put out 400cc of urine overnight. Discussed current workup/plan with the patient. Denies chest pain, palpitations, SOB, however has wheezing on exam. Pending MRCP results and further intervention by surgery/GI. Objective - Vital Signs/Intake and Output Vital Signs (last 24 hours): Temp Pulse Resp BP Pulse Ox 98.3 F 90 14 109/39 L 96 07/02/16 08:06 07/02/16 11:00 07/02/16 11:00 07/02/16 11:00 07/02/16 11:00 Intake and Output: 07/02/16 07/02/16 06:59 18:59 Intake Total 500 Output Total 400 Balance 100 - Medications Medications: Current Medications Albumin Human (Albumin Human 25% (25 Gm/100 Ml)) 25 gm IV BID IAIN Stop: 07/03/16 23:59 Last Admin: 07/02/16 09:33 Dose: Not Given Albuterol Sulfate (Albuterol 0.5% Inhal Lorri (2.5 Mg/0.5 Ml) Ud) 2.5 mg IH [id number] IAIN Albuterol Sulfate (Albuterol 0.5% Inhal Lorri (2.5 Mg/0.5 Ml) Ud) 2.5 mg IH Q3 PRN PRN Reason: Shortness of Breath Meropenem 1g/NS 100mL IVPB (Meropenem 1g/Ns 100ml Ivpb) 100 mls @ 100 mls/hr IVPB Q12 IAIN PRN Reason: Protocol Stop: 07/07/16 06:31 Last Admin: 07/02/16 09:02 Dose: 100 mls/hr Linezolid (Zyvox 600mg/300ml D5w) 300 mls @ 200 mls/hr IVPB Q12 IAIN PRN Reason: Protocol Stop: 07/07/16 06:31 Last Admin: 07/02/16 09:02 Dose: 200 mls/hr Insulin Human Lispro (Humalog Low) 0 units SC ACHS IAIN PRN Reason: Protocol Last Admin: 07/02/16 12:10 Dose: Not Given Levothyroxine Sodium (Synthroid) 75 mcg PO ACB [facility] Last Admin: 07/02/16 08:18 Dose: 75 mcg Nystatin (Nystop Topical Powder) 0 gm TOP BID [facility] Last Admin: 07/01/16 18:45 Dose: 1 applic Ondansetron HCl (Zofran Inj) 4 mg IVP Q6H PRN PRN Reason: Nausea/Vomiting Last Admin: 06/30/16 12:15 Dose: 4 mg Pantoprazole Sodium (Protonix Inj) 40 mg IVP DAILY [facility] Last Admin: 07/02/16 09:03 Dose: 40 mg - Labs Labs: 07/02/16 05:30 07/02/16 05:30 PT 10.4 Seconds (9.9-11.8) 07/02/16 05:30 INR 0.96 (0.93-1.08) 07/02/16 05:30 APTT 39.0 Seconds (23.7-30.8) H 07/02/16 11:00 - Constitutional Appears: Non-toxic, No Acute Distress - Head Exam Head Exam: ATRAUMATIC, NORMAL INSPECTION, NORMOCEPHALIC - Eye Exam Eye Exam: EOMI, PERRL - ENT Exam ENT Exam: Mucous Membranes Moist - Neck Exam Neck Exam: Normal Inspection - Respiratory Exam Respiratory Exam: Decreased Breath Sounds, Wheezes. absent: Rales, Rhonchi - Cardiovascular Exam Cardiovascular Exam: RRR, +S1, +S2. absent: Gallop, Rubs - GI/Abdominal Exam GI & Abdominal Exam: Soft, Tenderness (ruq tenderness), Normal Bowel Sounds. absent: Distended, Firm, Guarding, Rigid, Rebound - Extremities Exam Additional comments: right upper extremity motor strength 0/5, no sensation from the shoulder down left upper extremity motor strength 5/5 bilateral lower extremity motor strength 5/5 1+ pedal edema - Neurological Exam Neurological Exam: Alert, Awake, Oriented x3 - Psychiatric Exam Psychiatric exam: Normal Affect, Normal Mood - Skin Skin Exam: Dry, Intact, Warm Assessment and Plan - Assessment and Plan (Free Text) Plan: 75yo Female with history of CHF, DM2, TIA, hypothyroidism, chronic LE edema, history of DVT and CBD stones admitted to the ICU for rhabdomyolysis, Acute Kidney injury, right arm paralysis and likely acute cholecystitis 1. Rhabdomyolysis -Patient received 4 liters of fluid in the ED -Patient started on IV albumin 25gm q12h -Given IV lasix post albumin -400cc of urine output overnight -Monitor I's and O's -Daily weight -Nephrology consulted - Dr. Ron -Will continue to monitor renal function 2. Right upper extremity paralysis -CT RUE reviewed; Did not reveal any mass or hematoma involving the brachial plexus, however soft tissue density along plexus possible -RUE sensation/motor function without improvement since admission -RUE venous duplex negative for DVT -Hand surgeon consulted - Dr. Devries 3. Acute cholecystitis/CBD dilatation -HIDA scan reviewed; consistent with acute cholecystitis -Abdominal US reviewed; CBD measures 8.6mm, cholelithiasis, gallbladder lesion -CT abd/pelvis reviewed -MRCP reviewed -Patient scheduled for cholecystectomy tomorrow with the surgery team -Continue meropenem per ID recommendations -ID consulted - Dr. Banks -Surgery consulted - Dr. Elias -GI consulted - Dr. Duncan 4. s/p fall -Cervical, maxillofacial, shoulder and hip/pelvis x-rays negative -CT Head negative for acute intracranial pathology 5. DM type 2 -Humalog low dose ISS -Patient currently NPO -Fingersticks ACHS 6. GI/DVT Prophylaxis -Protonix/SCD's Patient seen and case discussed with attending, Dr. Porter <Mark Porter - Last Filed: 08/08/16 08:44> Objective - Vital Signs/Intake and Output Vital Signs (last 24 hours): Temp Pulse Resp BP Pulse Ox 98.4 F 82 22 147/58 L 94 L 07/13/16 08:15 07/13/16 08:15 07/13/16 08:15 07/13/16 08:15 07/13/16 08:15 - Labs Labs: 07/13/16 06:40 07/13/16 06:40 PT 10.4 Seconds (9.9-11.8) 07/02/16 05:30 INR 0.96 (0.93-1.08) 07/02/16 05:30 APTT 39.0 Seconds (23.7-30.8) H 07/02/16 11:00 Attending/Attestation - Attestation I have personally seen and examined this patient.: Yes I have fully participated in the care of the patient.: Yes I have reviewed all pertinent clinical information, including history, physical exam and plan: Yes Notes (Text): 08/08/16 08:44 Medical record note made by the resident after discussion with my direction and input after the patient was personally seen and examined by me. I have reviewed the chart and agree that the record reflects my personal performance of history, physical, data review and course for the patient that I have planned.
[2016-07-02] MEDS: Albuterol 0.5% Inhal Sol (2.5 mg/0.5 ml) UD IH SCH ×2 (13:07→20:18)
--- NOTE | 2016-07-02 14:15 | CP.CCUPN ---
<Diego Lama - Last Filed: 07/02/16 14:42> CCU Subjective - Physician Review Subjective (Free Text): Pt seen and examined at bedside. Pt with no acute events overnight. Pt remains oliguric, producing 400 cc of urine overnight. Pt reports no improvement in the status of right arm, as she is unable to move or have sensation in her right arm. Denies CP, SOB, N/V/D, fevers, chills. CCU Objective - Vital Signs / Intake & Output Vital Signs (Last 4 hours): Vital Signs Temp Pulse Resp BP Pulse Ox 07/02/16 12:23 98.4 F 07/02/16 11:00 90 14 109/39 L 96 Intake and Output (Last 8hrs): Intake & Output 07/01/16 07/02/16 07/02/16 22:59 06:59 14:59 Intake Total 1220 500 Output Total 300 400 Balance 920 100 Intake: IV 500 Left Hand 500 Oral 420 0 Other 800 Output: Urine 300 400 Urethral (Briones) 300 400 Other: Voiding Method Indwelling Catheter Indwelling Catheter # Bowel Movements 1 - Physical Exam Head: Positive for: Ecchymosis (Along lower right face) Pupils: Positive for: PERRL Extroacular Muscles: Positive for: EOMI Conjunctiva: Positive for: Normal. Negative for: Icteric Respiratory/Chest: Positive for: Clear to Auscultation, Good Air Exchange. Negative for: Rales, Rhonchi Cardiovascular: Positive for: Regular Rate and Rhythm, Normal S1, S2. Negative for: Murmurs Abdomen: Positive for: Normal Bowel Sounds. Negative for: Tenderness, Distention, Guarding Upper Extremity: Positive for: NORMAL PULSES, Other (Unable to move right arm. No sensation in right arm. Ecchymoses on right shoulder. Exam unchanged from previous day.). Negative for: Tenderness Lower Extremity: Positive for: Normal Inspection, Edema (trace). Negative for: CALF TENDERNESS Neurological: Positive for: Speech Normal, Other (No sensation in right upper extremity to light touch or deep stimulation.). Negative for: Motor Func Grossly Intact, Normal Sensory Function Skin: Positive for: Warm, Dry, Other (Ecchymoses on right upper extremity) Psychiatric: Positive for: Alert, Oriented x 3, Normal Insight, Normal Concentration - Medications Active Medications: Active Medications Generic Name Dose Route Start Last Admin Trade Name Freq PRN Reason Stop Dose Admin Albumin Human 25 gm 07/01/16 10:00 07/02/16 09:33 Albumin Human 25% (25 Gm/100 Ml) IV 07/03/16 23:59 Not Given BID IAIN Albuterol Sulfate 2.5 mg 07/02/16 14:00 07/02/16 13:07 Albuterol 0.5% Inhal Lorri (2.5 Mg/0.5 Ml) Ud IH 2.5 mg [id number] IAIN Administration Albuterol Sulfate 2.5 mg 07/02/16 09:01 Albuterol 0.5% Inhal Lorri (2.5 Mg/0.5 Ml) Ud IH Q3 PRN Shortness of Breath Meropenem 1g/NS 100mL IVPB 100 mls @ 100 mls/hr 06/30/16 06:30 07/02/16 09:02 Meropenem 1g/Ns 100ml Ivpb IVPB 07/07/16 06:31 100 mls/hr Q12 IAIN Administration Protocol Linezolid 300 mls @ 200 mls/hr 06/30/16 06:30 07/02/16 09:02 Zyvox 600mg/300ml D5w IVPB 07/07/16 06:31 200 mls/hr Q12 IAIN Administration Protocol Insulin Human Lispro 0 units 06/30/16 11:30 07/02/16 12:10 Humalog Low SC Not Given ACHS IAIN Protocol Levothyroxine Sodium 75 mcg 07/01/16 07:30 07/02/16 08:18 Synthroid PO 75 mcg ACB IAIN Administration Nystatin 0 gm 06/30/16 05:00 07/01/16 18:45 Nystop Topical Powder TOP 1 applic BID IAIN Administration Ondansetron HCl 4 mg 06/29/16 22:58 06/30/16 12:15 Zofran Inj IVP 4 mg Q6H PRN Administration Nausea/Vomiting Pantoprazole Sodium 40 mg 06/30/16 10:00 07/02/16 09:03 Protonix Inj IVP 40 mg DAILY IAIN Administration - Patient Studies Lab Studies: Microbiology Studies 06/29/16 20:00 MRSA Culture (Admit) - Final Naris MRSA NOT DETECTED Lab Studies 04/26/17 04/26/17 04/26/17 Range/Units 11:00 11:00 05:30 WBC (4.5-11.0) 10^3/ul RBC (3.5-6.1) 10^6/uL Hgb (12.0-16.0) gm/dL Hct (36.0-48.0) % MCV (80.0-105.0) fL MCH (25.0-35.0) pg MCHC (31.0-37.0) g/dl RDW (11.5-14.5) % Plt Count (120.0-450.0) 10^3/uL MPV (7.0-11.0) fl Gran % (50.0-68.0) % Lymph % (Auto) (22.0-35.0) % [place] % (Auto) (1.0-6.0) % Eos % (Auto) (1.5-5.0) % Baso % (Auto) (0.0-3.0) % Gran # (1.4-6.5) Lymph # (1.2-3.4) [place] # (0.1-0.6) Eos # (0.0-0.7) Baso # (0.0-2.0) K/mm3 Neutrophils % (Manual) (50.0-70.0) % Band Neutrophils % (0-2) % Lymphocytes % (Manual) (22.0-35.0) % Monocytes % (Manual) (1.0-6.0) % Eosinophils % (Manual) (0.0-3.0) % Platelet Evaluation (NORMAL) PT 10.4 (9.9-11.8) Seconds INR 0.96 (0.93-1.08) APTT 39.0 H (23.7-30.8) Seconds Sodium Cancelled (132-148) mmol/L Potassium Cancelled (3.6-5.0) mmol/L Chloride Cancelled (98-107) mmol/L Carbon Dioxide Cancelled (21-33) mmol/L Anion Gap Cancelled (10-20) BUN Cancelled (7-21) mg/dL Creatinine (0.5-1.4) mg/dL Est GFR ( Amer) Cancelled Est GFR (Non-Af Amer) Cancelled Random Glucose Cancelled (70-110) mg/dL Calcium Cancelled (8.4-10.5) mg/dL Phosphorus (2.5-4.5) mg/dL Total Bilirubin Cancelled (0.2-1.3) mg/dL AST Cancelled (15-39) U/L ALT Cancelled (7-56) U/L Alkaline Phosphatase Cancelled (38-133) U/L Total Creatine Kinase 9765 H (35-230) U/L CK-MB (CK-2) 15.1 H (0.0-3.6) ng/mL CK-MB (CK-2) % 0.2 L (2.5-3.0) % Total Protein Cancelled (5.8-8.3) g/dL Albumin Cancelled (3.0-4.8) g/dL Globulin Cancelled gm/dL Albumin/Globulin Ratio Cancelled (1.1-1.8) 07/02/16 07/02/16 07/01/16 Range/Units 05:30 05:30 21:54 WBC 24.9 H (4.5-11.0) 10^3/ul RBC 2.90 L (3.5-6.1) 10^6/uL Hgb 9.1 L (12.0-16.0) gm/dL Hct 27.0 L (36.0-48.0) % MCV 93.1 (80.0-105.0) fL MCH 31.4 (25.0-35.0) pg MCHC 33.7 (31.0-37.0) g/dl RDW 15.1 H (11.5-14.5) % Plt Count 283 (120.0-450.0) 10^3/uL MPV 9.5 (7.0-11.0) fl Gran % (50.0-68.0) % Lymph % (Auto) (22.0-35.0) % [place] % (Auto) (1.0-6.0) % Eos % (Auto) (1.5-5.0) % Baso % (Auto) (0.0-3.0) % Gran # (1.4-6.5) Lymph # (1.2-3.4) [place] # (0.1-0.6) Eos # (0.0-0.7) Baso # (0.0-2.0) K/mm3 Neutrophils % (Manual) 85 H (50.0-70.0) % Band Neutrophils % 4 H (0-2) % Lymphocytes % (Manual) 5 L (22.0-35.0) % Monocytes % (Manual) 5 (1.0-6.0) % Eosinophils % (Manual) 1 (0.0-3.0) % Platelet Evaluation Normal (NORMAL) PT (9.9-11.8) Seconds INR (0.93-1.08) APTT (23.7-30.8) Seconds Sodium 136 135 (132-148) mmol/L Potassium 4.4 4.3 (3.6-5.0) mmol/L Chloride 104 103 (98-107) mmol/L Carbon Dioxide 19 L 20 L (21-33) mmol/L Anion Gap 17 16 (10-20) BUN 58 H 55 H (7-21) mg/dL Creatinine 4.2 H 4.1 H (0.5-1.4) mg/dL Est GFR ( Amer) 12 13 Est GFR (Non-Af Amer) 10 11 Random Glucose 93 108 (70-110) mg/dL Calcium 7.4 L 7.1 L (8.4-10.5) mg/dL Phosphorus 6.9 H (2.5-4.5) mg/dL Total Bilirubin 0.7 0.8 (0.2-1.3) mg/dL AST 403 H 437 H (15-39) U/L ALT 184 H 207 H (7-56) U/L Alkaline Phosphatase 91 81 (38-133) U/L Total Creatine Kinase 53504 H (35-230) U/L CK-MB (CK-2) 24.2 H (0.0-3.6) ng/mL CK-MB (CK-2) % 0.2 L (2.5-3.0) % Total Protein 6.2 6.4 (5.8-8.3) g/dL Albumin 3.1 3.0 (3.0-4.8) g/dL Globulin 3.1 3.3 gm/dL Albumin/Globulin Ratio 1.0 L 0.9 L (1.1-1.8) 07/01/16 07/01/1617 Range/Units 21:54 14:25 14:25 WBC 22.4 H 22.2 H (4.5-11.0) 10^3/ul RBC 2.91 L 2.95 L (3.5-6.1) 10^6/uL Hgb 9.2 L 9.5 L (12.0-16.0) gm/dL Hct 27.1 L 27.3 L (36.0-48.0) % MCV 93.1 92.5 (80.0-105.0) fL MCH 31.6 32.2 (25.0-35.0) pg MCHC 33.9 34.8 (31.0-37.0) g/dl RDW 14.9 H 14.7 H (11.5-14.5) % Plt Count 270 266 (120.0-450.0) 10^3/uL MPV 9.2 9.4 (7.0-11.0) fl Gran % 89.6 H 89.2 H (50.0-68.0) % Lymph % (Auto) 4.5 L 4.7 L (22.0-35.0) % [place] % (Auto) 5.3 5.8 (1.0-6.0) % Eos % (Auto) 0.6 L 0.3 L (1.5-5.0) % Baso % (Auto) 0.0 0.0 (0.0-3.0) % Gran # 20.09 H 19.82 H (1.4-6.5) Lymph # 1.0 L 1.0 L (1.2-3.4) [place] # 1.2 H 1.3 H (0.1-0.6) Eos # 0.1 0.1 (0.0-0.7) Baso # 0.00 0.01 (0.0-2.0) K/mm3 Neutrophils % (Manual) (50.0-70.0) % Band Neutrophils % (0-2) % Lymphocytes % (Manual) (22.0-35.0) % Monocytes % (Manual) (1.0-6.0) % Eosinophils % (Manual) (0.0-3.0) % Platelet Evaluation (NORMAL) PT (9.9-11.8) Seconds INR (0.93-1.08) APTT (23.7-30.8) Seconds Sodium 136 (132-148) mmol/L Potassium 4.3 (3.6-5.0) mmol/L Chloride 104 (98-107) mmol/L Carbon Dioxide 19 L (21-33) mmol/L Anion Gap 17 (10-20) BUN 55 H (7-21) mg/dL Creatinine 3.8 H (0.5-1.4) mg/dL Est GFR ( Amer) 14 Est GFR (Non-Af Amer) 12 Random Glucose 117 H (70-110) mg/dL Calcium 7.0 L (8.4-10.5) mg/dL Phosphorus (2.5-4.5) mg/dL Total Bilirubin 0.7 (0.2-1.3) mg/dL AST 481 H (15-39) U/L ALT 217 H (7-56) U/L Alkaline Phosphatase 77 (38-133) U/L Total Creatine Kinase 02961 H (35-230) U/L CK-MB (CK-2) 28.4 H (0.0-3.6) ng/mL CK-MB (CK-2) % 0.2 L (2.5-3.0) % Total Protein 5.8 (5.8-8.3) g/dL Albumin 2.7 L (3.0-4.8) g/dL Globulin 3.2 gm/dL Albumin/Globulin Ratio 0.8 L (1.1-1.8) Laboratory Results - last 24 hr 07/01/16 07/01/16 07/01/16 14:25 14:25 21:54 WBC 22.2 H 22.4 H RBC 2.95 L 2.91 L Hgb 9.5 L 9.2 L Hct 27.3 L 27.1 L MCV 92.5 93.1 MCH 32.2 31.6 MCHC 34.8 33.9 RDW 14.7 H 14.9 H Plt Count 266 270 MPV 9.4 9.2 Gran % 89.2 H 89.6 H Lymph % (Auto) 4.7 L 4.5 L [place] % (Auto) 5.8 5.3 Eos % (Auto) 0.3 L 0.6 L Baso % (Auto) 0.0 0.0 Gran # 19.82 H 20.09 H Lymph # 1.0 L 1.0 L [place] # 1.3 H 1.2 H Eos # 0.1 0.1 Baso # 0.01 0.00 Neutrophils % (Manual) Band Neutrophils % Lymphocytes % (Manual) Monocytes % (Manual) Eosinophils % (Manual) Platelet Evaluation PT INR APTT Sodium 136 Potassium 4.3 Chloride 104 Carbon Dioxide 19 L Anion Gap 17 BUN 55 H Creatinine 3.8 H Est GFR ( Amer) 14 Est GFR (Non-Af Amer) 12 Random Glucose 117 H Calcium 7.0 L Phosphorus Total Bilirubin 0.7 AST 481 H ALT 217 H Alkaline Phosphatase 77 Total Creatine Kinase 24967 H CK-MB (CK-2) 28.4 H CK-MB (CK-2) % 0.2 L Total Protein 5.8 Albumin 2.7 L Globulin 3.2 Albumin/Globulin Ratio 0.8 L 07/01/16 07/02/16 07/02/16 21:54 05:30 05:30 WBC 24.9 H RBC 2.90 L Hgb 9.1 L Hct 27.0 L MCV 93.1 MCH 31.4 MCHC 33.7 RDW 15.1 H Plt Count 283 MPV 9.5 Gran % Lymph % (Auto) [place] % (Auto) Eos % (Auto) Baso % (Auto) Gran # Lymph # [place] # Eos # Baso # Neutrophils % (Manual) 85 H Band Neutrophils % 4 H Lymphocytes % (Manual) 5 L Monocytes % (Manual) 5 Eosinophils % (Manual) 1 Platelet Evaluation Normal PT INR APTT Sodium 135 136 Potassium 4.3 4.4 Chloride 103 104 Carbon Dioxide 20 L 19 L Anion Gap 16 17 BUN 55 H 58 H Creatinine 4.1 H 4.2 H Est GFR ( Amer) 13 12 Est GFR (Non-Af Amer) 11 10 Random Glucose 108 93 Calcium 7.1 L 7.4 L Phosphorus 6.9 H Total Bilirubin 0.8 0.7 AST 437 H 403 H ALT 207 H 184 H Alkaline Phosphatase 81 91 Total Creatine Kinase 61930 H CK-MB (CK-2) 24.2 H CK-MB (CK-2) % 0.2 L Total Protein 6.4 6.2 Albumin 3.0 3.1 Globulin 3.3 3.1 Albumin/Globulin Ratio 0.9 L 1.0 L 07/02/16 07/02/16 07/02/16 05:30 11:00 11:00 WBC RBC Hgb Hct MCV MCH MCHC RDW Plt Count MPV Gran % Lymph % (Auto) [place] % (Auto) Eos % (Auto) Baso % (Auto) Gran # Lymph # [place] # Eos # Baso # Neutrophils % (Manual) Band Neutrophils % Lymphocytes % (Manual) Monocytes % (Manual) Eosinophils % (Manual) Platelet Evaluation PT 10.4 INR 0.96 APTT 39.0 H Sodium Cancelled Potassium Cancelled Chloride Cancelled Carbon Dioxide Cancelled Anion Gap Cancelled BUN Cancelled Creatinine Est GFR ( Amer) Cancelled Est GFR (Non-Af Amer) Cancelled Random Glucose Cancelled Calcium Cancelled Phosphorus Total Bilirubin Cancelled AST Cancelled ALT Cancelled Alkaline Phosphatase Cancelled Total Creatine Kinase 9765 H CK-MB (CK-2) 15.1 H CK-MB (CK-2) % 0.2 L Total Protein Cancelled Albumin Cancelled Globulin Cancelled Albumin/Globulin Ratio Cancelled Fingerstick Blood Sugar Results: 109 Critical Care Progress Note - Nutrition Nutrition: Nutrition Category Date Time Status Liquid Diet [DIET] Diets 07/01/16 Lunch Ordered Assessment/Plan - Assessment and Plan (Free Text) Plan: 75 y/o F with PMH of CHF, DM, TIA, and hypothyroidism presents with severe sepsis secondary to acute cholecystitis in the setting of rhabdomyolysis complicated by acute kidney injury and transaminitis along with right arm paralysis. Creatinine continues to elevate in the setting of ATN. Urine output has improved, but still oliguric. Transaminitis likely secondary to rhabdomyolysis and will continue trend LFT's and CK. MRCP showed gallstones with sludge in the gallbladder and a moderately dilated common bile duct with no stones. Right arm paralysis remains the same. Neuro: AAOx3 Right arm paralysis, not improved Supportive therapy for right arm Cardio: Hemodynamically stable Goal MAP >65 Pulm: Maintain O2 sat >90% NC @ 2L Monitor for respiratory distress GI: NPO MRCP as above Surgery scheduled tomorrow, Dr. Elias following GI following, Dr. Duncan who recommends surgery. Pt not in need or ERCP Endo: Maintain euglycemia, target glucose between 140-180 ISS Nephro: DIMITRY on CKD, creatinine increasing Oliguric, urine output increased to 400 cc output overnight Monitor urine output Dr. Ron consulted, No dialysis needed at this time Heme/ID: Afebrile, leukocytosis stable Continue Merrem and Linezolid Blood, urine, and stool cultures negative at this time Maintain normothermia PPX: Protonix Zofran SCDs Seen, reviewed, and discussed with attending Daina, PGY-1 <Keli TO,Paige H - Last Filed: 07/02/16 15:33> CCU Objective - Vital Signs / Intake & Output Vital Signs (Last 4 hours): Vital Signs Temp 07/02/16 12:23 98.4 F Intake and Output (Last 8hrs): Intake & Output 07/02/16 07/02/16 07/02/16 06:59 14:59 22:59 Intake Total 500 Output Total 400 Balance 100 Intake: IV 500 Left Hand 500 Oral 0 Output: Urine 400 Urethral (Briones) 400 Other: Voiding Method Indwelling Catheter # Bowel Movements 1 - Medications Active Medications: Active Medications Generic Name Dose Route Start Last Admin Trade Name Freq PRN Reason Stop Dose Admin Albumin Human 25 gm 07/01/16 10:00 07/02/16 09:33 Albumin Human 25% (25 Gm/100 Ml) IV 07/03/16 23:59 Not Given BID IAIN Albuterol Sulfate 2.5 mg 07/02/16 14:00 07/02/16 13:07 Albuterol 0.5% Inhal Lorri (2.5 Mg/0.5 Ml) Ud IH 2.5 mg [id number] IAIN Administration Albuterol Sulfate 2.5 mg 07/02/16 09:01 Albuterol 0.5% Inhal Lorri (2.5 Mg/0.5 Ml) Ud IH Q3 PRN Shortness of Breath Meropenem 1g/NS 100mL IVPB 100 mls @ 100 mls/hr 06/30/16 06:30 07/02/16 09:02 Meropenem 1g/Ns 100ml Ivpb IVPB 07/07/16 06:31 100 mls/hr Q12 IAIN Administration Protocol Insulin Human Lispro 0 units 06/30/16 11:30 07/02/16 12:10 Humalog Low SC Not Given ACHS IAIN Protocol Levothyroxine Sodium 75 mcg 07/01/16 07:30 07/02/16 08:18 Synthroid PO 75 mcg ACB IAIN Administration Nystatin 0 gm 06/30/16 05:00 07/01/16 18:45 Nystop Topical Powder TOP 1 applic BID IAIN Administration Ondansetron HCl 4 mg 06/29/16 22:58 06/30/16 12:15 Zofran Inj IVP 4 mg Q6H PRN Administration Nausea/Vomiting Pantoprazole Sodium 40 mg 06/30/16 10:00 07/02/16 09:03 Protonix Inj IVP 40 mg DAILY IAIN Administration - Patient Studies Lab Studies: Lab Studies 07/02/16 07/02/16 07/02/16 Range/Units 11:00 11:00 05:30 WBC (4.5-11.0) 10^3/ul RBC (3.5-6.1) 10^6/uL Hgb (12.0-16.0) gm/dL Hct (36.0-48.0) % MCV (80.0-105.0) fL MCH (25.0-35.0) pg MCHC (31.0-37.0) g/dl RDW (11.5-14.5) % Plt Count (120.0-450.0) 10^3/uL MPV (7.0-11.0) fl Gran % (50.0-68.0) % Lymph % (Auto) (22.0-35.0) % [place] % (Auto) (1.0-6.0) % Eos % (Auto) (1.5-5.0) % Baso % (Auto) (0.0-3.0) % Gran # (1.4-6.5) Lymph # (1.2-3.4) [place] # (0.1-0.6) Eos # (0.0-0.7) Baso # (0.0-2.0) K/mm3 Neutrophils % (Manual) (50.0-70.0) % Band Neutrophils % (0-2) % Lymphocytes % (Manual) (22.0-35.0) % Monocytes % (Manual) (1.0-6.0) % Eosinophils % (Manual) (0.0-3.0) % Platelet Evaluation (NORMAL) PT 10.4 (9.9-11.8) Seconds INR 0.96 (0.93-1.08) APTT 39.0 H (23.7-30.8) Seconds Sodium Cancelled (132-148) mmol/L Potassium Cancelled (3.6-5.0) mmol/L Chloride Cancelled (98-107) mmol/L Carbon Dioxide Cancelled (21-33) mmol/L Anion Gap Cancelled (10-20) BUN Cancelled (7-21) mg/dL Creatinine (0.5-1.4) mg/dL Est GFR ( Amer) Cancelled Est GFR (Non-Af Amer) Cancelled Random Glucose Cancelled (70-110) mg/dL Calcium Cancelled (8.4-10.5) mg/dL Phosphorus (2.5-4.5) mg/dL Total Bilirubin Cancelled (0.2-1.3) mg/dL AST Cancelled (15-39) U/L ALT Cancelled (7-56) U/L Alkaline Phosphatase Cancelled (38-133) U/L Total Creatine Kinase 9765 H (35-230) U/L CK-MB (CK-2) 15.1 H (0.0-3.6) ng/mL CK-MB (CK-2) % 0.2 L (2.5-3.0) % Total Protein Cancelled (5.8-8.3) g/dL Albumin Cancelled (3.0-4.8) g/dL Globulin Cancelled gm/dL Albumin/Globulin Ratio Cancelled (1.1-1.8) 07/02/16 07/02/16 07/01/16 Range/Units 05:30 05:30 21:54 WBC 24.9 H (4.5-11.0) 10^3/ul RBC 2.90 L (3.5-6.1) 10^6/uL Hgb 9.1 L (12.0-16.0) gm/dL Hct 27.0 L (36.0-48.0) % MCV 93.1 (80.0-105.0) fL MCH 31.4 (25.0-35.0) pg MCHC 33.7 (31.0-37.0) g/dl RDW 15.1 H (11.5-14.5) % Plt Count 283 (120.0-450.0) 10^3/uL MPV 9.5 (7.0-11.0) fl Gran % (50.0-68.0) % Lymph % (Auto) (22.0-35.0) % [place] % (Auto) (1.0-6.0) % Eos % (Auto) (1.5-5.0) % Baso % (Auto) (0.0-3.0) % Gran # (1.4-6.5) Lymph # (1.2-3.4) [place] # (0.1-0.6) Eos # (0.0-0.7) Baso # (0.0-2.0) K/mm3 Neutrophils % (Manual) 85 H (50.0-70.0) % Band Neutrophils % 4 H (0-2) % Lymphocytes % (Manual) 5 L (22.0-35.0) % Monocytes % (Manual) 5 (1.0-6.0) % Eosinophils % (Manual) 1 (0.0-3.0) % Platelet Evaluation Normal (NORMAL) PT (9.9-11.8) Seconds INR (0.93-1.08) APTT (23.7-30.8) Seconds Sodium 136 135 (132-148) mmol/L Potassium 4.4 4.3 (3.6-5.0) mmol/L Chloride 104 103 (98-107) mmol/L Carbon Dioxide 19 L 20 L (21-33) mmol/L Anion Gap 17 16 (10-20) BUN 58 H 55 H (7-21) mg/dL Creatinine 4.2 H 4.1 H (0.5-1.4) mg/dL Est GFR ( Amer) 12 13 Est GFR (Non-Af Amer) 10 11 Random Glucose 93 108 (70-110) mg/dL Calcium 7.4 L 7.1 L (8.4-10.5) mg/dL Phosphorus 6.9 H (2.5-4.5) mg/dL Total Bilirubin 0.7 0.8 (0.2-1.3) mg/dL AST 403 H 437 H (15-39) U/L ALT 184 H 207 H (7-56) U/L Alkaline Phosphatase 91 81 (38-133) U/L Total Creatine Kinase 05877 H (35-230) U/L CK-MB (CK-2) 24.2 H (0.0-3.6) ng/mL CK-MB (CK-2) % 0.2 L (2.5-3.0) % Total Protein 6.2 6.4 (5.8-8.3) g/dL Albumin 3.1 3.0 (3.0-4.8) g/dL Globulin 3.1 3.3 gm/dL Albumin/Globulin Ratio 1.0 L 0.9 L (1.1-1.8) 07/01/16 Range/Units 21:54 WBC 22.4 H (4.5-11.0) 10^3/ul RBC 2.91 L (3.5-6.1) 10^6/uL Hgb 9.2 L (12.0-16.0) gm/dL Hct 27.1 L (36.0-48.0) % MCV 93.1 (80.0-105.0) fL MCH 31.6 (25.0-35.0) pg MCHC 33.9 (31.0-37.0) g/dl RDW 14.9 H (11.5-14.5) % Plt Count 270 (120.0-450.0) 10^3/uL MPV 9.2 (7.0-11.0) fl Gran % 89.6 H (50.0-68.0) % Lymph % (Auto) 4.5 L (22.0-35.0) % [place] % (Auto) 5.3 (1.0-6.0) % Eos % (Auto) 0.6 L (1.5-5.0) % Baso % (Auto) 0.0 (0.0-3.0) % Gran # 20.09 H (1.4-6.5) Lymph # 1.0 L (1.2-3.4) [place] # 1.2 H (0.1-0.6) Eos # 0.1 (0.0-0.7) Baso # 0.00 (0.0-2.0) K/mm3 Neutrophils % (Manual) (50.0-70.0) % Band Neutrophils % (0-2) % Lymphocytes % (Manual) (22.0-35.0) % Monocytes % (Manual) (1.0-6.0) % Eosinophils % (Manual) (0.0-3.0) % Platelet Evaluation (NORMAL) PT (9.9-11.8) Seconds INR (0.93-1.08) APTT (23.7-30.8) Seconds Sodium (132-148) mmol/L Potassium (3.6-5.0) mmol/L Chloride (98-107) mmol/L Carbon Dioxide (21-33) mmol/L Anion Gap (10-20) BUN (7-21) mg/dL Creatinine (0.5-1.4) mg/dL Est GFR ( Amer) Est GFR (Non-Af Amer) Random Glucose (70-110) mg/dL Calcium (8.4-10.5) mg/dL Phosphorus (2.5-4.5) mg/dL Total Bilirubin (0.2-1.3) mg/dL AST (15-39) U/L ALT (7-56) U/L Alkaline Phosphatase (38-133) U/L Total Creatine Kinase (35-230) U/L CK-MB (CK-2) (0.0-3.6) ng/mL CK-MB (CK-2) % (2.5-3.0) % Total Protein (5.8-8.3) g/dL Albumin (3.0-4.8) g/dL Globulin gm/dL Albumin/Globulin Ratio (1.1-1.8) Laboratory Results - last 24 hr 07/01/16 07/01/16 07/02/16 21:54 21:54 05:30 WBC 22.4 H 24.9 H RBC 2.91 L 2.90 L Hgb 9.2 L 9.1 L Hct 27.1 L 27.0 L MCV 93.1 93.1 MCH 31.6 31.4 MCHC 33.9 33.7 RDW 14.9 H 15.1 H Plt Count 270 283 MPV 9.2 9.5 Gran % 89.6 H Lymph % (Auto) 4.5 L [place] % (Auto) 5.3 Eos % (Auto) 0.6 L Baso % (Auto) 0.0 Gran # 20.09 H Lymph # 1.0 L [place] # 1.2 H Eos # 0.1 Baso # 0.00 Neutrophils % (Manual) 85 H Band Neutrophils % 4 H Lymphocytes % (Manual) 5 L Monocytes % (Manual) 5 Eosinophils % (Manual) 1 Platelet Evaluation Normal PT INR APTT Sodium 135 Potassium 4.3 Chloride 103 Carbon Dioxide 20 L Anion Gap 16 BUN 55 H Creatinine 4.1 H Est GFR ( Amer) 13 Est GFR (Non-Af Amer) 11 Random Glucose 108 Calcium 7.1 L Phosphorus Total Bilirubin 0.8 AST 437 H ALT 207 H Alkaline Phosphatase 81 Total Creatine Kinase 93877 H CK-MB (CK-2) 24.2 H CK-MB (CK-2) % 0.2 L Total Protein 6.4 Albumin 3.0 Globulin 3.3 Albumin/Globulin Ratio 0.9 L 07/02/16 07/02/16 07/02/16 05:30 05:30 11:00 WBC RBC Hgb Hct MCV MCH MCHC RDW Plt Count MPV Gran % Lymph % (Auto) [place] % (Auto) Eos % (Auto) Baso % (Auto) Gran # Lymph # [place] # Eos # Baso # Neutrophils % (Manual) Band Neutrophils % Lymphocytes % (Manual) Monocytes % (Manual) Eosinophils % (Manual) Platelet Evaluation PT 10.4 INR 0.96 APTT 39.0 H Sodium 136 Potassium 4.4 Chloride 104 Carbon Dioxide 19 L Anion Gap 17 BUN 58 H Creatinine 4.2 H Est GFR ( Amer) 12 Est GFR (Non-Af Amer) 10 Random Glucose 93 Calcium 7.4 L Phosphorus 6.9 H Total Bilirubin 0.7 AST 403 H ALT 184 H Alkaline Phosphatase 91 Total Creatine Kinase CK-MB (CK-2) CK-MB (CK-2) % Total Protein 6.2 Albumin 3.1 Globulin 3.1 Albumin/Globulin Ratio 1.0 L 07/02/16 11:00 WBC RBC Hgb Hct MCV MCH MCHC RDW Plt Count MPV Gran % Lymph % (Auto) [place] % (Auto) Eos % (Auto) Baso % (Auto) Gran # Lymph # [place] # Eos # Baso # Neutrophils % (Manual) Band Neutrophils % Lymphocytes % (Manual) Monocytes % (Manual) Eosinophils % (Manual) Platelet Evaluation PT INR APTT Sodium Cancelled Potassium Cancelled Chloride Cancelled Carbon Dioxide Cancelled Anion Gap Cancelled BUN Cancelled Creatinine Est GFR ( Amer) Cancelled Est GFR (Non-Af Amer) Cancelled Random Glucose Cancelled Calcium Cancelled Phosphorus Total Bilirubin Cancelled AST Cancelled ALT Cancelled Alkaline Phosphatase Cancelled Total Creatine Kinase 9765 H CK-MB (CK-2) 15.1 H CK-MB (CK-2) % 0.2 L Total Protein Cancelled Albumin Cancelled Globulin Cancelled Albumin/Globulin Ratio Cancelled Critical Care Progress Note - Nutrition Nutrition: Nutrition Category Date Time Status Liquid Diet [DIET] Diets 07/01/16 Lunch Ordered NPO Diet [DIET] Diets 07/02/16 Dinner Ordered Attending/Attestation - Attestation I have personally seen and examined this patient.: Yes I have fully participated in the care of the patient.: Yes I have reviewed all pertinent clinical information: Yes Notes (Text): 07/02/16 15:31 75 y/o F w/ Multiple medical problems in the ICU Rhabdomyolysis On N.S with improvement of CK Urine output not gratly improving. Albumin and LASIX tried without much improvement. may need HD in the future Elevated WBC, possible source GB Plans for Surgery in the a.m Continue ABX to cover . No new clinical symptoms R arm weakness From BP injury from fall and hematoma Could benefit from MRi w/ [facility] if surgery was indicated or if it would change course of action. PT/OT needed. Surgery is consulted as well. cc time 65 min
--- NOTE | 2016-07-02 14:17 | CP.PCM.PN ---
Subjective - Date & Time of Evaluation Date of Evaluation: 07/02/16 Time of Evaluation: 10:20 - Subjective Subjective: Patient is comfortable in bed, no nausea, no vomiting, less abdominal discomfort , afebrile overnight. Objective - Vital Signs/Intake and Output Vital Signs (last 24 hours): Temp Pulse Resp BP Pulse Ox 98.4 F 90 14 109/39 L 96 07/02/16 12:23 07/02/16 11:00 07/02/16 11:00 07/02/16 11:00 07/02/16 11:00 Intake and Output: 07/02/16 07/02/16 06:59 18:59 Intake Total 500 Output Total 400 Balance 100 - Medications Medications: Current Medications Albumin Human (Albumin Human 25% (25 Gm/100 Ml)) 25 gm IV BID [facility] Stop: 07/03/16 23:59 Last Admin: 07/02/16 09:33 Dose: Not Given Albuterol Sulfate (Albuterol 0.5% Inhal Lorri (2.5 Mg/0.5 Ml) Ud) 2.5 mg IH [id number] [facility] Last Admin: 07/02/16 13:07 Dose: 2.5 mg Albuterol Sulfate (Albuterol 0.5% Inhal Lorri (2.5 Mg/0.5 Ml) Ud) 2.5 mg IH Q3 PRN PRN Reason: Shortness of Breath Meropenem 1g/NS 100mL IVPB (Meropenem 1g/Ns 100ml Ivpb) 100 mls @ 100 mls/hr IVPB Q12 IAIN PRN Reason: Protocol Stop: 07/07/16 06:31 Last Admin: 07/02/16 09:02 Dose: 100 mls/hr Linezolid (Zyvox 600mg/300ml D5w) 300 mls @ 200 mls/hr IVPB Q12 IAIN PRN Reason: Protocol Stop: 07/07/16 06:31 Last Admin: 07/02/16 09:02 Dose: 200 mls/hr Insulin Human Lispro (Humalog Low) 0 units SC ACHS IAIN PRN Reason: Protocol Last Admin: 07/02/16 12:10 Dose: Not Given Levothyroxine Sodium (Synthroid) 75 mcg PO ACB [facility] Last Admin: 07/02/16 08:18 Dose: 75 mcg Nystatin (Nystop Topical Powder) 0 gm TOP BID [facility] Last Admin: 07/01/16 18:45 Dose: 1 applic Ondansetron HCl (Zofran Inj) 4 mg IVP Q6H PRN PRN Reason: Nausea/Vomiting Last Admin: 06/30/16 12:15 Dose: 4 mg Pantoprazole Sodium (Protonix Inj) 40 mg IVP DAILY [facility] Last Admin: 07/02/16 09:03 Dose: 40 mg - Labs Labs: 07/02/16 05:30 07/02/16 11:00 PT 10.4 Seconds (9.9-11.8) 07/02/16 05:30 INR 0.96 (0.93-1.08) 07/02/16 05:30 APTT 39.0 Seconds (23.7-30.8) H 07/02/16 11:00 - Constitutional Appears: Non-toxic, No Acute Distress - Head Exam Head Exam: NORMAL INSPECTION - ENT Exam ENT Exam: Mucous Membranes Moist - Neck Exam Neck Exam: absent: Lymphadenopathy, Meningismus - Respiratory Exam Respiratory Exam: Decreased Breath Sounds - Cardiovascular Exam Cardiovascular Exam: +S1, +S2 - GI/Abdominal Exam GI & Abdominal Exam: Soft. absent: Tenderness Assessment and Plan - Assessment and Plan (Free Text) Plan: Assessment severe sepsis with acute renal failure in a patient with acute severe rhabdomyolysis, consider secondary to acute cholecystitis/ biliary tree infection in a patient with biliary tree stones HTN chronic CHF DM morbid obesity with BMI 47 hypothyroidism S/P hysterectomy S/P bilateral knee replacements dyslipidemia history of TIA dyslipidemia history of chronic lower extremity cellulitis degenerative arthritis Plan continue Meropenem day 2; blood, urine cx are negative; reviewed HIDA scan results - possible acute cholecystitis - we have discontinued zyvox since there is no evidence of MRSA will follow up GI and Surgery recommendations
--- NOTE | 2016-07-02 20:51 | PN ---
DATE: 07/02/2016 This is a 75-year-old female with past medical history of hypertension, diabetes, hypothyroidism, cho lelithiasis and previous right lower extremity DVT, admitted with severe rhabdomyolysis. Nephrology following patient for acute renal failure. The patient reports feeling well. Denies any shortness of breath, denies any abdominal pain. Still no sensation in right arm, but does have some sensation in right shoulder today. PHYSICAL EXAMINATION: VITAL SIGNS: This morning, blood pressure 105/44, heart rate 85, respirations 18, temperature 98.3, O2 sat 92% on 4 liters via nasal cannula. GENERAL: No distress, speaking coherently in full sentences. HEENT: Moist mucous membranes. Nonicteric. CHEST: Clear to auscultation bilaterally. No rhonchi, no wheezes, no respiratory distress. CARDIOVASCULAR: S1, S2 normal, no murmurs, no gallops, no rubs. ABDOMEN: Soft, mild epigastric tenderness, nondistended. NEUROLOGIC: No sensation in her right arm. Some sensation in right shoulder area. Unable to move r ight arm or hand. PSYCHIATRIC: Normal mood. Normal affect. EXTREMITIES: Warm to touch distally. Marked bilateral lower leg edema. LABORATORY DATA: CBC: WBC 24.9, hemoglobin 9.1, hematocrit 27.0, platelets 283. Chemistry panel: Sodium 136, potassium 4.4, chloride 104, bicarbonate 19, BUN 58, creatinine 4.2, calcium 7.4, glucose 93, phosphorus 6.9. AST 403, ALT 184, CK 9765, albumin 3.1. ASSESSMENT: 1. Acute renal failure, acute kidney injury on chronic kidney disease stage III; oliguric renal fail ure with acute tubular necrosis secondary to severe rhabdomyolysis. Urine output improved, although still borderline. Rate in rise of serum creatinine has slowed significantly, indicating that renal r ecovery is likely close. No hyperkalemia. Mild increase in anion gap. Metabolic acidosis. Signs o f volume excess on exam and chest x-ray findings. Increased FIO2 requirement, otherwise no respirato ry distress and no impending need for intubation at this point. Cautious volume replenishment in the setting of sepsis to avoid worsening respiratory status. Can use high doses of IV Lasix to improve r espiratory status. Would use at least 80 mg IV push and if no response, can increase to 120 mg IV pu sh as needed. 2. Rhabdomyolysis secondary to right arm muscle injury. CK level continues to trend downward. Mild hypercalcemia when corrected for serum albumin. Would avoid aggressive calcium replenishment as sequ estered calcium in the affected muscle will start to be released as muscle recovery occurs. Also wit h hyperphosphatemia, calcium can complex with phosphorus and deposit in vasculature and soft tissues. Would replenish calcium only if symptomatic or having EKG changes. 3. Systemic inflammatory response syndrome/sepsis. Hida scan indicative of possible acute cholecyst itis, on meropenem. Consider decreasing frequency to q. 24 hours in the setting of advanced renal fa ilure. 4. Metabolic acidosis, relatively mild in the setting of renal failure. Would avoid giving bicarbon ate-containing fluids as this will worsen hypocalcemia. 5. Anemia, mild drop in hemoglobin. Checking iron studies. Timmy Ron MD cc: [id number] TT: 07/02/2016 20:51:35 Confirmation # [id number] Dictation # [id number] maksim
--- NOTE | 2016-07-02 21:47 | PN ---
DATE: 07/02/2016 ADDENDUM This is an addendum to the GI progress report dictated by Sweetie Reece NP. The patient is comfortabl e, only has minimal discomfort in the right upper quadrant area. The MRCP was reviewed and discussed with Dr. Elias, no obvious obstruction or significant stricture noticed. The patient is scheduled for a cholecystectomy tomorrow, would recommend intraoperative cholangiogram at that time. Continue the antibiotics and followup of the LFTs. Care also discussed with Dr. Roosevelt Beltran earlier today . Thank you very much for allowing us to participate in the care of the patient. Kavon Duncan MD cc: [id number] TT: 07/02/2016 21:46:34 Confirmation # [id number] Dictation # [id number] mn
[2016-07-03] MEDS: Albuterol 0.5% Inhal Sol (2.5 mg/0.5 ml) UD IH SCH ×4 (04:10→21:08)
[2016-07-03 04:29] LABS: HEMATOCRIT 25.6 % (36.0-48.0); MEAN CELL VOLUME 92.8 fL (80.0-105.0); MEAN CORPUSCULAR HEMOGLOBIN 32.2 pg (25.0-35.0); MEAN CORPUSCULAR HGB CONC 34.8 g/dl (31.0-37.0); MEAN PLATELET VOLUME 9.4 fl (7.0-11.0); PLATELET COUNT 295 10^3/uL (120.0-450.0); RED CELL DISTRIBUTION WIDTH 15.1 % (11.5-14.5); WHITE BLOOD COUNT 23.8 10^3/ul (4.5-11.0)
[2016-07-03 04:32] LABS: ADD MANUAL DIFF? YES
[2016-07-03 04:47] LABS: IRON 23 ug/dL (45-180)
[2016-07-03 05:03] LABS: ALB/GLOB RATIO 0.9 (1.1-1.8); BILIRUBIN,TOTAL 0.9 mg/dL (0.2-1.3); CALCIUM 7.6 mg/dL (8.4-10.5); POTASSIUM 4.5 mmol/L (3.6-5.0); TOTAL PROTEIN 6.2 g/dL (5.8-8.3)
[2016-07-03 05:58] LABS: BAND 3 % (0-2); EOSINOPHIL 2 % (0.0-3.0); MYELOCYTE 1 %; NEUTROPHIL 84 % (50.0-70.0)
[2016-07-03 05:59] LABS: HYPOCHROMIA SLIGHT; PLATELET ESTIMATE NORMAL (NORMAL)
[2016-07-03] MEDS ORDERED: Eptifibatide 20 mg/10mL Inj IVP ONE (07:05)
[2016-07-03] MEDS: Levothyroxine 75 MCG TAB PO SCH (07:09)
[2016-07-03] MEDS: Insulin Lispro (humaLOG) LOW Coverage SC SCH ×4 (07:25→23:00)
[2016-07-03] MEDS ORDERED: Iohexol 240 (50 ml) ONE (07:28)
[2016-07-03] MEDS ORDERED: Bupivacaine 0.5% Inj(30mL) ONE (07:28)
[2016-07-03] MEDS ORDERED: Propofol 10 mg/ml Inj (20 ML) ONE (07:46)
[2016-07-03] MEDS ORDERED: Midazolam 2 MG/2 ML VIAL ONE (07:46)
[2016-07-03] MEDS ORDERED: Rocuronium 10 mg/ml (5 ml) ONE (07:47)
[2016-07-03] MEDS ORDERED: Etomidate 20 mg/10ml Inj IV ONE (07:47)
--- NOTE | 2016-07-03 07:57 | PN ---
DATE: 07/03/2016(630am--715am) SUBJECTIVE: The patient appears comfortable at rest. She is not short of breath. PHYSICAL EXAMINATION: VITAL SIGNS: Temperature is 98.2, pulse on the monitor is 96, respiratory rate 18/20, blood pressure 93/43. Oxygen saturation on nasal cannula is 95%. HEENT: Normocephalic. Positive ecchymosis right facial area. No JVD. CARDIOVASCULAR: Systolic ejection murmur at the lower left sternal border. No S3 gallop. LUNGS: Decreased breath sounds at the bases. Less rhonchi. No wheezing this morning. EXTREMITIES: Positive for edema. No cyanosis, no clubbing. Calves are nontender to palpation. GASTROINTESTINAL: Abdomen is soft, nontender, nondistended. Bowel sounds are positive. SKIN: Mild cellulitic changes on the legs (anterior aspects). NEUROLOGIC: Limited at the present time. PERTINENT LABORATORY DATA: Chest x-ray was done this morning and reviewed. Compared to yesterday's film, there are less pulmonary vascular congestive changes noted. There are minimal atelectatic changes at the bases. CBC: White count 23.8, hemoglobin 8.9, hematocrit 25.6, platelets of 295. IMPRESSION: 1. Acute rhabdomyolysis. Status post fall. 2. Acute renal failure. 3. Sepsis syndrome. 4. Acute cholecystitis. 5. Anemia. 6. Mild bronchospasm. PLAN: The patient appears comfortable this morning. She is not short of breath at rest. She does state to feeling better overall. I did discuss the case with the night nurse at length. The night nurse stated that the patient had a pretty good night. The night nurse also stated that the patient is for probable cholecystectomy later today. I will certainly touch base with GI and surgery this morning. I did review the chest x-ray as above. The x-ray is mildly improved -- with a decrease in the pulmonary vascular congestive changes. On physical exam, there is less bronchospasm noted. In addition, there is less alveolar-arterial gradient. I will continue with the current nebulizer treatments and continue to encourage incentive spirometry for now. I would continue with the antibiotic coverage as per infectious disease. Input by Dr. Good is noted. Clinical status of the patient is certainly improved -- compared to her initial presentation. However, the overall status/prognosis of this patient remains very guarded. I will discuss the above with the entire ICU team in the next few moments. I will also discuss the above with Dr. Porter later this morning. Lionel Sheehan MD cc: [id number] TT: 07/03/2016 07:57:14 Confirmation # [id number] Dictation # [id number] en MTDD
[2016-07-03] MEDS ORDERED: Sevoflurane - Inhalation Anesthetic Liq (250 ml) ONE (08:21)
[2016-07-03 08:46] LABS: RETIC% 0.84 % (0.5-1.5)
[2016-07-03] MEDS ORDERED: Oxychlorosene Topical 2 gm Packet TOP ONE (09:03)
--- NOTE | 2016-07-03 09:17 | RAD ---
HISTORY: follow up COMPARISON: 07/02/2016 FINDINGS: LUNGS: Right basilar opacity, vaguely linear, likely subsegmental atelectasis. No other pulmonary opacity elsewhere. Examination is somewhat limited due to patient body habitus. PLEURA: Cannot rule out small left pleural effusion. No evidence of right pleural effusion. CARDIOVASCULAR: Normal. OSSEOUS STRUCTURES: No significant abnormalities. VISUALIZED UPPER ABDOMEN: Normal. OTHER FINDINGS: None. IMPRESSION: Probable subsegmental atelectasis at right base. Cannot rule out left pleural effusion. No evidence of right pleural effusion. Otherwise unremarkable.
--- NOTE | 2016-07-03 09:39 | PN ---
DATE: 07/03/2016 The patient seen earlier this morning in the ICU bed #1 and she was awake, she was alert. She states she is feeling better. She had no fevers and fevers have improved. Still some abdominal pain. PHYSICAL EXAMINATION: VITAL SIGNS: Temperature is 98, blood pressure is 110/50, respiratory rate of 22, heart rate of 100. HEENT: Unremarkable. NECK: Supple. LUNGS: Have decreased breath sounds. HEART: Normal S1, S2. ABDOMEN: Mild tenderness. No rebound, no guarding, no masses. LABORATORY EXAMINATION: Reveals a white count of 23,800, hemoglobin of 8 and there is 3% bandemia. Coagulation is noted. The chemistries reveals a BUN of 64, creatinine of 4.5. LFTs are elevated. T he alkaline phosphatase is normal. Urinalysis is noted. Microbiology reveals the blood cultures are negative, the stool C. diff is negative antigen and toxin. The patient's MRCP is reviewed, which reveals gallstones in the gallbladder, moderately dilated commo n bile duct with no obvious stones. Dr. Sheehan's progress note is reviewed. Dr. Duncan's progres s note is also reviewed. ASSESSMENT AND PLAN: A 75-year-old with severe sepsis with acute renal failure in a patient with acu te severe rhabdomyolysis and acute cholecystitis with biliary tree stones and cholestasis and choleli thiasis and hypertension and chronic congestive heart failure, diabetes mellitus with morbid obesity, body mass index of 47, hypothyroidism, history of hysterectomy, history of bilateral knee replacemen t, dyslipidemia. Currently on meropenem day #3. The patient for surgery today and thus far the [facility] obiology is reported to be negative. Review of the orders confirms the meropenem to be active. Ang Banks MD cc: [id number] TT: 07/03/2016 09:38:12 Confirmation # [id number] Dictation # [id number] en
[2016-07-03] MEDS ORDERED: HYDROmorphone 0.5 mg/0.5 ml ISec IVP PRN (09:46)
[2016-07-03] MEDS ORDERED: Morphine 2 mg/ml ISec IVP PRN (09:46)
[2016-07-03] MEDS: Meropenem 1g/NS 100mL IVPB 100 ML IVPB SCH ×2 (10:00→23:00)
[2016-07-03] MEDS ORDERED: Sodium Chloride 0.9% 1,000 ML IV SCH (10:00)
[2016-07-03] MEDS ORDERED: Neostigmine Methylsulfate 3mg/3ml Syringe IV ONE (10:03)
[2016-07-03] MEDS ORDERED: Glycopyrrolate 0.2 mg/ml (2ml vial) ONE (10:04)
[2016-07-03] MEDS ORDERED: Naloxone 0.4 mg/ml Inj (Adult) ONE (10:26)
--- NOTE | 2016-07-03 10:50 | PCM.SURG1 ---
Surgeon's Initial Post Op Note - Surgeon's Notes Surgeon: Curt Construction Equipment Mechanic Helper: Roxanna PGY2 Type of Anesthesia: General Endo, Local Pre-Operative Diagnosis: cholecystitis Operative Findings: acutely inflamed gallbladder Post-Operative Diagnosis: same Operation Performed: laparoscopic cholecystectomy converted to open Specimen/Specimens Removed: gallbladder, cultures, lymph node Estimated Blood Loss: EBL {In ML}: 125 Blood Products Given: N/A Drains Used: Hamzah Post-Op Condition: Fair Date of Surgery/Procedure: 07/03/16 Time of Surgery/Procedure: 10:49
[2016-07-03] MEDS ORDERED: Lactated Ringer's 1,000 ML IV SCH (10:52)
[2016-07-03] MEDS: Albumin Human 25% (25 gm/100 ml) IV SCH ×2 (11:27→17:14)
[2016-07-03] MEDS: Nystatin 100,000 Units/gm Topical Pow(15 gm) TOP SCH ×2 (11:51→18:22)
[2016-07-03 13:49] LABS: HEMATOCRIT 29.1 % (36.0-48.0); MEAN CELL VOLUME 94.8 fL (80.0-105.0); MEAN CORPUSCULAR HEMOGLOBIN 31.6 pg (25.0-35.0); MEAN CORPUSCULAR HGB CONC 33.3 g/dl (31.0-37.0); MEAN PLATELET VOLUME 9.5 fl (7.0-11.0); RED CELL DISTRIBUTION WIDTH 15.6 % (11.5-14.5); WHITE BLOOD COUNT 19.2 10^3/ul (4.5-11.0)
[2016-07-03 13:55] LABS: ALKALINE PHOSPHATASE 98 U/L (38-133); ALT/SGPT 178 U/L (7-56); AST/SGOT 335 U/L (15-39); BILIRUBIN,TOTAL 1.1 mg/dL (0.2-1.3); BLOOD UREA NITROGEN 66 mg/dL (7-21); CALCIUM 7.7 mg/dL (8.4-10.5); CARBON DIOXIDE 18 mmol/L (21-33); CHLORIDE 105 mmol/L (98-107); GLUCOSE,RANDOM 112 mg/dL (70-110); POTASSIUM 4.9 mmol/L (3.6-5.0); SODIUM 137 mmol/L (132-148); TOTAL PROTEIN 6.8 g/dL (5.8-8.3)
[2016-07-03 14:00] LABS: GFR AFRICAN-AMERICAN 11
--- NOTE | 2016-07-03 14:26 | CP.CCUPN ---
<Diego Lama - Last Filed: 07/03/16 14:21> CCU Subjective - Physician Review Subjective (Free Text): Pt seen and examined at bedside. Pt with no acute events overnight. Pt remains oliguric, producing 275 cc of urine overnight. Pt admits to no movement or sensation of the right arm. Pt scheduled for surgery today. Denies CP, SOB, N/V/ D, fevers, chills. CCU Objective - Vital Signs / Intake & Output Vital Signs (Last 4 hours): Vital Signs Temp Pulse Resp BP Pulse Ox 07/03/16 13:45 107 H 19 112/64 96 07/03/16 13:30 107 H 20 108/42 L 96 07/03/16 13:15 108 H 20 98/40 L 95 07/03/16 13:00 110 H 23 104/43 L 95 07/03/16 12:47 113 H 26 H 114/38 L 87 L 07/03/16 12:45 114 H 23 71/42 L 90 L 07/03/16 12:31 110 H 22 102/47 L 96 07/03/16 12:17 118 H 26 H 145/66 95 07/03/16 12:00 98.6 F 115 H 26 H 124/56 L 96 07/03/16 11:45 116 H 25 H 133/50 L 95 07/03/16 11:31 112 H 25 H 129/44 L 96 07/03/16 11:30 112 H 25 H 126/51 L 96 07/03/16 11:17 110 H 26 H 129/44 L 96 07/03/16 11:00 108 H 24 96 07/03/16 10:46 95 H 24 117/46 L 98 07/03/16 10:43 96 Intake and Output (Last 8hrs): Intake & Output 07/02/16 07/03/16 07/03/16 22:59 06:59 14:59 Intake Total 900 300 Output Total 300 275 Balance 600 25 Weight 271 lb 6.4 oz Intake: IV 0 100 Left Hand 0 100 Oral 350 200 Albumin 200 Other 350 Output: Urine 300 275 Urethral (Briones) 300 275 Other: Voiding Method Indwelling Catheter Indwelling Catheter - Physical Exam Head: Positive for: Ecchymosis (Along lower right face) Pupils: Positive for: PERRL Extroacular Muscles: Positive for: EOMI Conjunctiva: Positive for: Normal. Negative for: Icteric Respiratory/Chest: Positive for: Clear to Auscultation, Good Air Exchange. Negative for: Rales, Rhonchi Cardiovascular: Positive for: Regular Rate and Rhythm, Normal S1, S2. Negative for: Murmurs Abdomen: Positive for: Normal Bowel Sounds. Negative for: Tenderness, Distention, Guarding Upper Extremity: Positive for: NORMAL PULSES, Other (Unable to move right arm. No sensation in right arm. Ecchymoses on right shoulder. Exam unchanged from previous day.). Negative for: Tenderness Lower Extremity: Positive for: Normal Inspection, Edema (trace). Negative for: CALF TENDERNESS Neurological: Positive for: Speech Normal, Other (No sensation in right upper extremity to light touch or deep stimulation.). Negative for: Motor Func Grossly Intact, Normal Sensory Function Skin: Positive for: Warm, Dry, Other (Ecchymoses on right upper extremity) Psychiatric: Positive for: Alert, Oriented x 3, Normal Insight, Normal Concentration - Medications Active Medications: Active Medications Generic Name Dose Route Start Last Admin Trade Name Freq PRN Reason Stop Dose Admin Albumin Human 25 gm 07/01/16 10:00 07/03/16 11:27 Albumin Human 25% (25 Gm/100 Ml) IV 07/03/16 23:59 25 gm BID IAIN Administration Albuterol Sulfate 2.5 mg 07/02/16 14:00 07/03/16 13:37 Albuterol 0.5% Inhal Lorri (2.5 Mg/0.5 Ml) Ud IH 2.5 mg [id number] IAIN Administration Albuterol Sulfate 2.5 mg 07/02/16 09:01 Albuterol 0.5% Inhal Lorri (2.5 Mg/0.5 Ml) Ud IH Q3 PRN Shortness of Breath Heparin Sodium (Porcine) 5,000 units 07/04/16 10:00 Heparin SC Q12 [facility] Protocol Hydromorphone HCl 1 mg 07/03/16 10:50 Dilaudid IVP Q4H PRN Pain, moderate (4-7) Meropenem 1g/NS 100mL IVPB 100 mls @ 100 mls/hr 06/30/16 06:30 07/03/16 10:00 Meropenem 1g/Ns 100ml Ivpb IVPB 07/07/16 06:31 100 mls/hr Q12 IAIN Administration Protocol Insulin Human Lispro 0 units 06/30/16 11:30 07/03/16 11:30 Humalog Low SC Not Given ACHS [facility] Protocol Levothyroxine Sodium 75 mcg 07/01/16 07:30 07/03/16 07:09 Synthroid PO Not Given ACB IAIN Metoclopramide HCl 10 mg 07/03/16 09:46 Reglan IV ONCE PRN Nausea/Vomiting Nystatin 0 gm 06/30/16 05:00 07/03/16 11:51 Nystop Topical Powder TOP 1 applic BID IAIN Administration Ondansetron HCl 4 mg 06/29/16 22:58 06/30/16 12:15 Zofran Inj IVP 4 mg Q6H PRN Administration Nausea/Vomiting Ondansetron HCl 4 mg 07/03/16 09:46 Zofran Inj IVP ONCE PRN Nausea/Vomiting Pantoprazole Sodium 40 mg 06/30/16 10:00 07/03/16 11:43 Protonix Inj IVP 40 mg DAILY IAIN Administration - Patient Studies Lab Studies: Lab Studies 07/03/16 07/03/16 07/03/16 Range/Units 14:00 13:42 07:24 WBC 19.2 H (4.5-11.0) 10^3/ul RBC 3.07 L (3.5-6.1) 10^6/uL Hgb 9.7 L (12.0-16.0) gm/dL Hct 29.1 L (36.0-48.0) % MCV 94.8 (80.0-105.0) fL MCH 31.6 (25.0-35.0) pg MCHC 33.3 (31.0-37.0) g/dl RDW 15.6 H (11.5-14.5) % Plt Count 333 (120.0-450.0) 10^3/uL MPV 9.5 (7.0-11.0) fl Neutrophils % (Manual) (50.0-70.0) % Band Neutrophils % (0-2) % Lymphocytes % (Manual) (22.0-35.0) % Monocytes % (Manual) (1.0-6.0) % Eosinophils % (Manual) (0.0-3.0) % Myelocytes % % Platelet Evaluation (NORMAL) Hypochromasia Retic Count (0.5-1.5) % Sodium 137 (132-148) mmol/L Potassium 4.9 (3.6-5.0) mmol/L Chloride 105 (98-107) mmol/L Carbon Dioxide 18 L (21-33) mmol/L Anion Gap 19 (10-20) BUN 66 H (7-21) mg/dL Creatinine 4.6 H (0.5-1.4) mg/dL Est GFR ( Amer) 11 Est GFR (Non-Af Amer) 9 POC Glucose (mg/dL) 105 (65-110) mg/dL Random Glucose 112 H (70-110) mg/dL Calcium 7.7 L (8.4-10.5) mg/dL Iron (45-180) ug/dL TIBC (265-497) ug/dL % Saturation (20-55) % Ferritin Total Bilirubin 1.1 (0.2-1.3) mg/dL AST 335 H (15-39) U/L ALT 178 H (7-56) U/L Alkaline Phosphatase 98 (38-133) U/L Lactate Dehydrogenase (333-699) U/L Total Creatine Kinase (35-230) U/L CK-MB (CK-2) (0.0-3.6) ng/mL CK-MB (CK-2) % (2.5-3.0) % Total Protein 6.8 (5.8-8.3) g/dL Albumin 3.3 (3.0-4.8) g/dL Globulin 3.4 gm/dL Albumin/Globulin Ratio 1.0 L (1.1-1.8) Vitamin B12 Folate 07/03/16 07/03/16 07/03/16 Range/Units 05:00 05:00 04:20 WBC (4.5-11.0) 10^3/ul RBC (3.5-6.1) 10^6/uL Hgb (12.0-16.0) gm/dL Hct (36.0-48.0) % MCV (80.0-105.0) fL MCH (25.0-35.0) pg MCHC (31.0-37.0) g/dl RDW (11.5-14.5) % Plt Count (120.0-450.0) 10^3/uL MPV (7.0-11.0) fl Neutrophils % (Manual) (50.0-70.0) % Band Neutrophils % (0-2) % Lymphocytes % (Manual) (22.0-35.0) % Monocytes % (Manual) (1.0-6.0) % Eosinophils % (Manual) (0.0-3.0) % Myelocytes % % Platelet Evaluation (NORMAL) Hypochromasia Retic Count 0.84 (0.5-1.5) % Sodium (132-148) mmol/L Potassium (3.6-5.0) mmol/L Chloride (98-107) mmol/L Carbon Dioxide (21-33) mmol/L Anion Gap (10-20) BUN (7-21) mg/dL Creatinine (0.5-1.4) mg/dL Est GFR ( Amer) Est GFR (Non-Af Amer) POC Glucose (mg/dL) (65-110) mg/dL Random Glucose (70-110) mg/dL Calcium (8.4-10.5) mg/dL Iron 23 L (45-180) ug/dL TIBC 146 L (265-497) ug/dL % Saturation 16 L (20-55) % Ferritin Cancelled Total Bilirubin (0.2-1.3) mg/dL AST (15-39) U/L ALT (7-56) U/L Alkaline Phosphatase (38-133) U/L Lactate Dehydrogenase 2307 H (333-699) U/L Total Creatine Kinase (35-230) U/L CK-MB (CK-2) (0.0-3.6) ng/mL CK-MB (CK-2) % (2.5-3.0) % Total Protein (5.8-8.3) g/dL Albumin (3.0-4.8) g/dL Globulin gm/dL Albumin/Globulin Ratio (1.1-1.8) Vitamin B12 Cancelled Folate Cancelled 07/03/16 07/03/16 07/02/16 Range/Units 04:20 04:20 21:33 WBC 23.8 H (4.5-11.0) 10^3/ul RBC 2.76 L (3.5-6.1) 10^6/uL Hgb 8.9 L (12.0-16.0) gm/dL Hct 25.6 L (36.0-48.0) % MCV 92.8 (80.0-105.0) fL MCH 32.2 (25.0-35.0) pg MCHC 34.8 (31.0-37.0) g/dl RDW 15.1 H (11.5-14.5) % Plt Count 295 (120.0-450.0) 10^3/uL MPV 9.4 (7.0-11.0) fl Neutrophils % (Manual) 84 H (50.0-70.0) % Band Neutrophils % 3 H (0-2) % Lymphocytes % (Manual) 5 L (22.0-35.0) % Monocytes % (Manual) 5 (1.0-6.0) % Eosinophils % (Manual) 2 (0.0-3.0) % Myelocytes % 1 % Platelet Evaluation Normal (NORMAL) Hypochromasia Slight Retic Count (0.5-1.5) % Sodium 136 (132-148) mmol/L Potassium 4.5 (3.6-5.0) mmol/L Chloride 104 (98-107) mmol/L Carbon Dioxide 18 L (21-33) mmol/L Anion Gap 19 (10-20) BUN 64 H (7-21) mg/dL Creatinine 4.5 H (0.5-1.4) mg/dL Est GFR ( Amer) 11 Est GFR (Non-Af Amer) 9 POC Glucose (mg/dL) 150 H (65-110) mg/dL Random Glucose 97 (70-110) mg/dL Calcium 7.6 L (8.4-10.5) mg/dL Iron (45-180) ug/dL TIBC (265-497) ug/dL % Saturation (20-55) % Ferritin Total Bilirubin 0.9 (0.2-1.3) mg/dL AST 301 H (15-39) U/L ALT 161 H (7-56) U/L Alkaline Phosphatase 98 (38-133) U/L Lactate Dehydrogenase (333-699) U/L Total Creatine Kinase 6098 H (35-230) U/L CK-MB (CK-2) 8.0 H (0.0-3.6) ng/mL CK-MB (CK-2) % 0.1 L (2.5-3.0) % Total Protein 6.2 (5.8-8.3) g/dL Albumin 3.0 (3.0-4.8) g/dL Globulin 3.2 gm/dL Albumin/Globulin Ratio 0.9 L (1.1-1.8) Vitamin B12 Folate 07/02/16 07/02/16 07/02/16 Range/Units 15:43 11:17 07:12 WBC (4.5-11.0) 10^3/ul RBC (3.5-6.1) 10^6/uL Hgb (12.0-16.0) gm/dL Hct (36.0-48.0) % MCV (80.0-105.0) fL MCH (25.0-35.0) pg MCHC (31.0-37.0) g/dl RDW (11.5-14.5) % Plt Count (120.0-450.0) 10^3/uL MPV (7.0-11.0) fl Neutrophils % (Manual) (50.0-70.0) % Band Neutrophils % (0-2) % Lymphocytes % (Manual) (22.0-35.0) % Monocytes % (Manual) (1.0-6.0) % Eosinophils % (Manual) (0.0-3.0) % Myelocytes % % Platelet Evaluation (NORMAL) Hypochromasia Retic Count (0.5-1.5) % Sodium (132-148) mmol/L Potassium (3.6-5.0) mmol/L Chloride (98-107) mmol/L Carbon Dioxide (21-33) mmol/L Anion Gap (10-20) BUN (7-21) mg/dL Creatinine (0.5-1.4) mg/dL Est GFR ( Amer) Est GFR (Non-Af Amer) POC Glucose (mg/dL) 104 109 88 (65-110) mg/dL Random Glucose (70-110) mg/dL Calcium (8.4-10.5) mg/dL Iron (45-180) ug/dL TIBC (265-497) ug/dL % Saturation (20-55) % Ferritin Total Bilirubin (0.2-1.3) mg/dL AST (15-39) U/L ALT (7-56) U/L Alkaline Phosphatase (38-133) U/L Lactate Dehydrogenase (333-699) U/L Total Creatine Kinase (35-230) U/L CK-MB (CK-2) (0.0-3.6) ng/mL CK-MB (CK-2) % (2.5-3.0) % Total Protein (5.8-8.3) g/dL Albumin (3.0-4.8) g/dL Globulin gm/dL Albumin/Globulin Ratio (1.1-1.8) Vitamin B12 Folate 07/01/16 07/01/16 Range/Units 21:58 16:26 WBC (4.5-11.0) 10^3/ul RBC (3.5-6.1) 10^6/uL Hgb (12.0-16.0) gm/dL Hct (36.0-48.0) % MCV (80.0-105.0) fL MCH (25.0-35.0) pg MCHC (31.0-37.0) g/dl RDW (11.5-14.5) % Plt Count (120.0-450.0) 10^3/uL MPV (7.0-11.0) fl Neutrophils % (Manual) (50.0-70.0) % Band Neutrophils % (0-2) % Lymphocytes % (Manual) (22.0-35.0) % Monocytes % (Manual) (1.0-6.0) % Eosinophils % (Manual) (0.0-3.0) % Myelocytes % % Platelet Evaluation (NORMAL) Hypochromasia Retic Count (0.5-1.5) % Sodium (132-148) mmol/L Potassium (3.6-5.0) mmol/L Chloride (98-107) mmol/L Carbon Dioxide (21-33) mmol/L Anion Gap (10-20) BUN (7-21) mg/dL Creatinine (0.5-1.4) mg/dL Est GFR ( Amer) Est GFR (Non-Af Amer) POC Glucose (mg/dL) 114 H 106 (65-110) mg/dL Random Glucose (70-110) mg/dL Calcium (8.4-10.5) mg/dL Iron (45-180) ug/dL TIBC (265-497) ug/dL % Saturation (20-55) % Ferritin Total Bilirubin (0.2-1.3) mg/dL AST (15-39) U/L ALT (7-56) U/L Alkaline Phosphatase (38-133) U/L Lactate Dehydrogenase (333-699) U/L Total Creatine Kinase (35-230) U/L CK-MB (CK-2) (0.0-3.6) ng/mL CK-MB (CK-2) % (2.5-3.0) % Total Protein (5.8-8.3) g/dL Albumin (3.0-4.8) g/dL Globulin gm/dL Albumin/Globulin Ratio (1.1-1.8) Vitamin B12 Folate Laboratory Results - last 24 hr 07/01/16 07/01/16 07/02/16 16:26 21:58 07:12 WBC RBC Hgb Hct MCV MCH MCHC RDW Plt Count MPV Neutrophils % (Manual) Band Neutrophils % Lymphocytes % (Manual) Monocytes % (Manual) Eosinophils % (Manual) Myelocytes % Platelet Evaluation Hypochromasia Retic Count Sodium Potassium Chloride Carbon Dioxide Anion Gap BUN Creatinine Est GFR ( Amer) Est GFR (Non-Af Amer) POC Glucose (mg/dL) 106 114 H 88 Random Glucose Calcium Iron TIBC % Saturation Ferritin Total Bilirubin AST ALT Alkaline Phosphatase Lactate Dehydrogenase Total Creatine Kinase CK-MB (CK-2) CK-MB (CK-2) % Total Protein Albumin Globulin Albumin/Globulin Ratio Vitamin B12 Folate 07/02/16 07/02/16 07/02/16 11:17 15:43 21:33 WBC RBC Hgb Hct MCV MCH MCHC RDW Plt Count MPV Neutrophils % (Manual) Band Neutrophils % Lymphocytes % (Manual) Monocytes % (Manual) Eosinophils % (Manual) Myelocytes % Platelet Evaluation Hypochromasia Retic Count Sodium Potassium Chloride Carbon Dioxide Anion Gap BUN Creatinine Est GFR ( Amer) Est GFR (Non-Af Amer) POC Glucose (mg/dL) 109 104 150 H Random Glucose Calcium Iron TIBC % Saturation Ferritin Total Bilirubin AST ALT Alkaline Phosphatase Lactate Dehydrogenase Total Creatine Kinase CK-MB (CK-2) CK-MB (CK-2) % Total Protein Albumin Globulin Albumin/Globulin Ratio Vitamin B12 Folate 07/03/16 07/03/16 07/03/16 04:20 04:20 04:20 WBC 23.8 H RBC 2.76 L Hgb 8.9 L Hct 25.6 L MCV 92.8 MCH 32.2 MCHC 34.8 RDW 15.1 H Plt Count 295 MPV 9.4 Neutrophils % (Manual) 84 H Band Neutrophils % 3 H Lymphocytes % (Manual) 5 L Monocytes % (Manual) 5 Eosinophils % (Manual) 2 Myelocytes % 1 Platelet Evaluation Normal Hypochromasia Slight Retic Count Sodium 136 Potassium 4.5 Chloride 104 Carbon Dioxide 18 L Anion Gap 19 BUN 64 H Creatinine 4.5 H Est GFR ( Amer) 11 Est GFR (Non-Af Amer) 9 POC Glucose (mg/dL) Random Glucose 97 Calcium 7.6 L Iron 23 L TIBC 146 L % Saturation 16 L Ferritin Total Bilirubin 0.9 AST 301 H ALT 161 H Alkaline Phosphatase 98 Lactate Dehydrogenase Total Creatine Kinase 6098 H CK-MB (CK-2) 8.0 H CK-MB (CK-2) % 0.1 L Total Protein 6.2 Albumin 3.0 Globulin 3.2 Albumin/Globulin Ratio 0.9 L Vitamin B12 Folate 07/03/16 07/03/16 07/03/16 05:00 05:00 07:24 WBC RBC Hgb Hct MCV MCH MCHC RDW Plt Count MPV Neutrophils % (Manual) Band Neutrophils % Lymphocytes % (Manual) Monocytes % (Manual) Eosinophils % (Manual) Myelocytes % Platelet Evaluation Hypochromasia Retic Count 0.84 Sodium Potassium Chloride Carbon Dioxide Anion Gap BUN Creatinine Est GFR ( Amer) Est GFR (Non-Af Amer) POC Glucose (mg/dL) 105 Random Glucose Calcium Iron TIBC % Saturation Ferritin Cancelled Total Bilirubin AST ALT Alkaline Phosphatase Lactate Dehydrogenase 2307 H Total Creatine Kinase CK-MB (CK-2) CK-MB (CK-2) % Total Protein Albumin Globulin Albumin/Globulin Ratio Vitamin B12 Cancelled Folate Cancelled 07/03/16 07/03/16 13:42 14:00 WBC 19.2 H RBC 3.07 L Hgb 9.7 L Hct 29.1 L MCV 94.8 MCH 31.6 MCHC 33.3 RDW 15.6 H Plt Count 333 MPV 9.5 Neutrophils % (Manual) Band Neutrophils % Lymphocytes % (Manual) Monocytes % (Manual) Eosinophils % (Manual) Myelocytes % Platelet Evaluation Hypochromasia Retic Count Sodium 137 Potassium 4.9 Chloride 105 Carbon Dioxide 18 L Anion Gap 19 BUN 66 H Creatinine 4.6 H Est GFR ( Amer) 11 Est GFR (Non-Af Amer) 9 POC Glucose (mg/dL) Random Glucose 112 H Calcium 7.7 L Iron TIBC % Saturation Ferritin Total Bilirubin 1.1 AST 335 H ALT 178 H Alkaline Phosphatase 98 Lactate Dehydrogenase Total Creatine Kinase CK-MB (CK-2) CK-MB (CK-2) % Total Protein 6.8 Albumin 3.3 Globulin 3.4 Albumin/Globulin Ratio 1.0 L Vitamin B12 Folate Fingerstick Blood Sugar Results: 134 Critical Care Progress Note - Nutrition Nutrition: Nutrition Category Date Time Status NPO Diet [DIET] Diets 07/02/16 Dinner Ordered Assessment/Plan - Assessment and Plan (Free Text) Plan: 75 y/o F with PMH of CHF, DM, TIA, and hypothyroidism presents with severe sepsis secondary to acute cholecystitis in the setting of rhabdomyolysis complicated by acute kidney injury and transaminitis along with right arm paralysis. Creatinine continues to elevate in the setting of ATN. Urine output is minimal, pt is still oliguric. Transaminitis stablizing, but elevated due to rhabdomyolysis. Pt will undergo cholecystectomy today. Right arm paralysis remains unchanged. Neuro: AAOx3 Right arm paralysis unchanged Supportive therapy for right arm, no surgical intervention at this time Cardio: Hemodynamically stable Goal MAP >65 Pulm: Maintain O2 sat >90% NC @ 2L Monitor for respiratory distress GI: NPO LFT's remain stable, but elevated Surgery today GI following, Dr. Duncan. Endo: Maintain euglycemia, target glucose between 140-180 ISS Nephro: DIMITRY on CKD secondary to rhabdomyolysis and ATN. Creatinine continues to increase Oliguric, urine output increased to 275 cc output overnight Monitor urine output closely Dr. Ron consulted, No dialysis needed at this time Heme/ID: Afebrile, leukocytosis stable Continue Merrem. Linezolid stopped Blood, urine, and stool cultures negative at this time Maintain normothermia PPX: Protonix Zofran SCDs Seen, reviewed, and discussed with attending Daina, PGY-1 <Keli TO,Paige H - Last Filed: 07/03/16 16:40> CCU Objective - Vital Signs / Intake & Output Vital Signs (Last 4 hours): Vital Signs Temp Pulse Resp BP Pulse Ox 07/03/16 15:59 100 F H 07/03/16 15:00 110 H 20 134/58 L 98 07/03/16 14:02 108 H 19 126/60 97 07/03/16 14:00 108 H 19 97 07/03/16 13:45 107 H 19 112/64 96 07/03/16 13:30 107 H 20 108/42 L 96 07/03/16 13:15 108 H 20 98/40 L 95 07/03/16 13:00 110 H 23 104/43 L 95 07/03/16 12:47 113 H 26 H 114/38 L 87 L 07/03/16 12:45 114 H 23 71/42 L 90 L Intake and Output (Last 8hrs): Intake & Output 07/03/16 07/03/16 07/03/16 06:59 14:59 22:59 Intake Total 300 Output Total 275 Balance 25 Weight 271 lb 6.4 oz Intake: IV 100 Left Hand 100 Oral 200 Output: Urine 275 Urethral (Briones) 275 Other: Voiding Method Indwelling Catheter - Medications Active Medications: Active Medications Generic Name Dose Route Start Last Admin Trade Name Freq PRN Reason Stop Dose Admin Albumin Human 25 gm 07/01/16 10:00 07/03/16 11:27 Albumin Human 25% (25 Gm/100 Ml) IV 07/03/16 23:59 25 gm BID IAIN Administration Albuterol Sulfate 2.5 mg 07/02/16 14:00 07/03/16 13:37 Albuterol 0.5% Inhal Lorri (2.5 Mg/0.5 Ml) Ud IH 2.5 mg [id number] IAIN Administration Albuterol Sulfate 2.5 mg 07/02/16 09:01 Albuterol 0.5% Inhal Lorri (2.5 Mg/0.5 Ml) Ud IH Q3 PRN Shortness of Breath Heparin Sodium (Porcine) 5,000 units 07/04/16 10:00 Heparin SC Q12 I[facility] Protocol Hydromorphone HCl 1 mg 07/03/16 10:50 Dilaudid IVP Q4H PRN Pain, moderate (4-7) Meropenem 1g/NS 100mL IVPB 100 mls @ 100 mls/hr 06/30/16 06:30 07/03/16 10:00 Meropenem 1g/Ns 100ml Ivpb IVPB 07/07/16 06:31 100 mls/hr Q12 I[facility] Administration Protocol Insulin Human Lispro 0 units 06/30/16 11:30 07/03/16 16:34 Humalog Low SC Not Given ACHS [facility] Protocol Levothyroxine Sodium 75 mcg 07/01/16 07:30 07/03/16 07:09 Synthroid PO Not Given ACB IAIN Metoclopramide HCl 10 mg 07/03/16 09:46 Reglan IV ONCE PRN Nausea/Vomiting Nystatin 0 gm 06/30/16 05:00 07/03/16 11:51 Nystop Topical Powder TOP 1 applic BID IAIN Administration Ondansetron HCl 4 mg 06/29/16 22:58 06/30/16 12:15 Zofran Inj IVP 4 mg Q6H PRN Administration Nausea/Vomiting Ondansetron HCl 4 mg 07/03/16 09:46 Zofran Inj IVP ONCE PRN Nausea/Vomiting Pantoprazole Sodium 40 mg 06/30/16 10:00 07/03/16 11:43 Protonix Inj IVP 40 mg DAILY IAIN Administration - Patient Studies Lab Studies: Lab Studies 07/03/16 07/03/16 07/03/16 Range/Units 14:00 13:42 07:24 WBC 19.2 H (4.5-11.0) 10^3/ul RBC 3.07 L (3.5-6.1) 10^6/uL Hgb 9.7 L (12.0-16.0) gm/dL Hct 29.1 L (36.0-48.0) % MCV 94.8 (80.0-105.0) fL MCH 31.6 (25.0-35.0) pg MCHC 33.3 (31.0-37.0) g/dl RDW 15.6 H (11.5-14.5) % Plt Count 333 (120.0-450.0) 10^3/uL MPV 9.5 (7.0-11.0) fl Neutrophils % (Manual) (50.0-70.0) % Band Neutrophils % (0-2) % Lymphocytes % (Manual) (22.0-35.0) % Monocytes % (Manual) (1.0-6.0) % Eosinophils % (Manual) (0.0-3.0) % Myelocytes % % Platelet Evaluation (NORMAL) Hypochromasia Retic Count (0.5-1.5) % Sodium 137 (132-148) mmol/L Potassium 4.9 (3.6-5.0) mmol/L Chloride 105 (98-107) mmol/L Carbon Dioxide 18 L (21-33) mmol/L Anion Gap 19 (10-20) BUN 66 H (7-21) mg/dL Creatinine 4.6 H (0.5-1.4) mg/dL Est GFR ( Amer) 11 Est GFR (Non-Af Amer) 9 POC Glucose (mg/dL) 105 (65-110) mg/dL Random Glucose 112 H (70-110) mg/dL Calcium 7.7 L (8.4-10.5) mg/dL Iron (45-180) ug/dL TIBC (265-497) ug/dL % Saturation (20-55) % Ferritin 978.0 Total Bilirubin 1.1 (0.2-1.3) mg/dL AST 335 H (15-39) U/L ALT 178 H (7-56) U/L Alkaline Phosphatase 98 (38-133) U/L Lactate Dehydrogenase (333-699) U/L Total Creatine Kinase (35-230) U/L CK-MB (CK-2) (0.0-3.6) ng/mL CK-MB (CK-2) % (2.5-3.0) % Total Protein 6.8 (5.8-8.3) g/dL Albumin 3.3 (3.0-4.8) g/dL Globulin 3.4 gm/dL Albumin/Globulin Ratio 1.0 L (1.1-1.8) Vitamin B12 Folate 07/03/16 07/03/16 07/03/16 Range/Units 05:00 05:00 04:20 WBC (4.5-11.0) 10^3/ul RBC (3.5-6.1) 10^6/uL Hgb (12.0-16.0) gm/dL Hct (36.0-48.0) % MCV (80.0-105.0) fL MCH (25.0-35.0) pg MCHC (31.0-37.0) g/dl RDW (11.5-14.5) % Plt Count (120.0-450.0) 10^3/uL MPV (7.0-11.0) fl Neutrophils % (Manual) (50.0-70.0) % Band Neutrophils % (0-2) % Lymphocytes % (Manual) (22.0-35.0) % Monocytes % (Manual) (1.0-6.0) % Eosinophils % (Manual) (0.0-3.0) % Myelocytes % % Platelet Evaluation (NORMAL) Hypochromasia Retic Count 0.84 (0.5-1.5) % Sodium (132-148) mmol/L Potassium (3.6-5.0) mmol/L Chloride (98-107) mmol/L Carbon Dioxide (21-33) mmol/L Anion Gap (10-20) BUN (7-21) mg/dL Creatinine (0.5-1.4) mg/dL Est GFR ( Amer) Est GFR (Non-Af Amer) POC Glucose (mg/dL) (65-110) mg/dL Random Glucose (70-110) mg/dL Calcium (8.4-10.5) mg/dL Iron 23 L (45-180) ug/dL TIBC 146 L (265-497) ug/dL % Saturation 16 L (20-55) % Ferritin Cancelled Total Bilirubin (0.2-1.3) mg/dL AST (15-39) U/L ALT (7-56) U/L Alkaline Phosphatase (38-133) U/L Lactate Dehydrogenase 2307 H (333-699) U/L Total Creatine Kinase (35-230) U/L CK-MB (CK-2) (0.0-3.6) ng/mL CK-MB (CK-2) % (2.5-3.0) % Total Protein (5.8-8.3) g/dL Albumin (3.0-4.8) g/dL Globulin gm/dL Albumin/Globulin Ratio (1.1-1.8) Vitamin B12 Cancelled Folate Cancelled 07/03/16 07/03/16 07/02/16 Range/Units 04:20 04:20 21:33 WBC 23.8 H (4.5-11.0) 10^3/ul RBC 2.76 L (3.5-6.1) 10^6/uL Hgb 8.9 L (12.0-16.0) gm/dL Hct 25.6 L (36.0-48.0) % MCV 92.8 (80.0-105.0) fL MCH 32.2 (25.0-35.0) pg MCHC 34.8 (31.0-37.0) g/dl RDW 15.1 H (11.5-14.5) % Plt Count 295 (120.0-450.0) 10^3/uL MPV 9.4 (7.0-11.0) fl Neutrophils % (Manual) 84 H (50.0-70.0) % Band Neutrophils % 3 H (0-2) % Lymphocytes % (Manual) 5 L (22.0-35.0) % Monocytes % (Manual) 5 (1.0-6.0) % Eosinophils % (Manual) 2 (0.0-3.0) % Myelocytes % 1 % Platelet Evaluation Normal (NORMAL) Hypochromasia Slight Retic Count (0.5-1.5) % Sodium 136 (132-148) mmol/L Potassium 4.5 (3.6-5.0) mmol/L Chloride 104 (98-107) mmol/L Carbon Dioxide 18 L (21-33) mmol/L Anion Gap 19 (10-20) BUN 64 H (7-21) mg/dL Creatinine 4.5 H (0.5-1.4) mg/dL Est GFR ( Amer) 11 Est GFR (Non-Af Amer) 9 POC Glucose (mg/dL) 150 H (65-110) mg/dL Random Glucose 97 (70-110) mg/dL Calcium 7.6 L (8.4-10.5) mg/dL Iron (45-180) ug/dL TIBC (265-497) ug/dL % Saturation (20-55) % Ferritin Total Bilirubin 0.9 (0.2-1.3) mg/dL AST 301 H (15-39) U/L ALT 161 H (7-56) U/L Alkaline Phosphatase 98 (38-133) U/L Lactate Dehydrogenase (333-699) U/L Total Creatine Kinase 6098 H (35-230) U/L CK-MB (CK-2) 8.0 H (0.0-3.6) ng/mL CK-MB (CK-2) % 0.1 L (2.5-3.0) % Total Protein 6.2 (5.8-8.3) g/dL Albumin 3.0 (3.0-4.8) g/dL Globulin 3.2 gm/dL Albumin/Globulin Ratio 0.9 L (1.1-1.8) Vitamin B12 Folate 07/02/16 07/02/16 07/02/16 Range/Units 15:43 11:17 07:12 WBC (4.5-11.0) 10^3/ul RBC (3.5-6.1) 10^6/uL Hgb (12.0-16.0) gm/dL Hct (36.0-48.0) % MCV (80.0-105.0) fL MCH (25.0-35.0) pg MCHC (31.0-37.0) g/dl RDW (11.5-14.5) % Plt Count (120.0-450.0) 10^3/uL MPV (7.0-11.0) fl Neutrophils % (Manual) (50.0-70.0) % Band Neutrophils % (0-2) % Lymphocytes % (Manual) (22.0-35.0) % Monocytes % (Manual) (1.0-6.0) % Eosinophils % (Manual) (0.0-3.0) % Myelocytes % % Platelet Evaluation (NORMAL) Hypochromasia Retic Count (0.5-1.5) % Sodium (132-148) mmol/L Potassium (3.6-5.0) mmol/L Chloride (98-107) mmol/L Carbon Dioxide (21-33) mmol/L Anion Gap (10-20) BUN (7-21) mg/dL Creatinine (0.5-1.4) mg/dL Est GFR ( Amer) Est GFR (Non-Af Amer) POC Glucose (mg/dL) 104 109 88 (65-110) mg/dL Random Glucose (70-110) mg/dL Calcium (8.4-10.5) mg/dL Iron (45-180) ug/dL TIBC (265-497) ug/dL % Saturation (20-55) % Ferritin Total Bilirubin (0.2-1.3) mg/dL AST (15-39) U/L ALT (7-56) U/L Alkaline Phosphatase (38-133) U/L Lactate Dehydrogenase (333-699) U/L Total Creatine Kinase (35-230) U/L CK-MB (CK-2) (0.0-3.6) ng/mL CK-MB (CK-2) % (2.5-3.0) % Total Protein (5.8-8.3) g/dL Albumin (3.0-4.8) g/dL Globulin gm/dL Albumin/Globulin Ratio (1.1-1.8) Vitamin B12 Folate 07/01/16 07/01/16 Range/Units 21:58 16:26 WBC (4.5-11.0) 10^3/ul RBC (3.5-6.1) 10^6/uL Hgb (12.0-16.0) gm/dL Hct (36.0-48.0) % MCV (80.0-105.0) fL MCH (25.0-35.0) pg MCHC (31.0-37.0) g/dl RDW (11.5-14.5) % Plt Count (120.0-450.0) 10^3/uL MPV (7.0-11.0) fl Neutrophils % (Manual) (50.0-70.0) % Band Neutrophils % (0-2) % Lymphocytes % (Manual) (22.0-35.0) % Monocytes % (Manual) (1.0-6.0) % Eosinophils % (Manual) (0.0-3.0) % Myelocytes % % Platelet Evaluation (NORMAL) Hypochromasia Retic Count (0.5-1.5) % Sodium (132-148) mmol/L Potassium (3.6-5.0) mmol/L Chloride (98-107) mmol/L Carbon Dioxide (21-33) mmol/L Anion Gap (10-20) BUN (7-21) mg/dL Creatinine (0.5-1.4) mg/dL Est GFR ( Amer) Est GFR (Non-Af Amer) POC Glucose (mg/dL) 114 H 106 (65-110) mg/dL Random Glucose (70-110) mg/dL Calcium (8.4-10.5) mg/dL Iron (45-180) ug/dL TIBC (265-497) ug/dL % Saturation (20-55) % Ferritin Total Bilirubin (0.2-1.3) mg/dL AST (15-39) U/L ALT (7-56) U/L Alkaline Phosphatase (38-133) U/L Lactate Dehydrogenase (333-699) U/L Total Creatine Kinase (35-230) U/L CK-MB (CK-2) (0.0-3.6) ng/mL CK-MB (CK-2) % (2.5-3.0) % Total Protein (5.8-8.3) g/dL Albumin (3.0-4.8) g/dL Globulin gm/dL Albumin/Globulin Ratio (1.1-1.8) Vitamin B12 Folate Laboratory Results - last 24 hr 07/01/16 07/01/16 07/02/16 16:26 21:58 07:12 WBC RBC Hgb Hct MCV MCH MCHC RDW Plt Count MPV Neutrophils % (Manual) Band Neutrophils % Lymphocytes % (Manual) Monocytes % (Manual) Eosinophils % (Manual) Myelocytes % Platelet Evaluation Hypochromasia Retic Count Sodium Potassium Chloride Carbon Dioxide Anion Gap BUN Creatinine Est GFR ( Amer) Est GFR (Non-Af Amer) POC Glucose (mg/dL) 106 114 H 88 Random Glucose Calcium Iron TIBC % Saturation Ferritin Total Bilirubin AST ALT Alkaline Phosphatase Lactate Dehydrogenase Total Creatine Kinase CK-MB (CK-2) CK-MB (CK-2) % Total Protein Albumin Globulin Albumin/Globulin Ratio Vitamin B12 Folate 07/02/16 07/02/16 07/02/16 11:17 15:43 21:33 WBC RBC Hgb Hct MCV MCH MCHC RDW Plt Count MPV Neutrophils % (Manual) Band Neutrophils % Lymphocytes % (Manual) Monocytes % (Manual) Eosinophils % (Manual) Myelocytes % Platelet Evaluation Hypochromasia Retic Count Sodium Potassium Chloride Carbon Dioxide Anion Gap BUN Creatinine Est GFR ( Amer) Est GFR (Non-Af Amer) POC Glucose (mg/dL) 109 104 150 H Random Glucose Calcium Iron TIBC % Saturation Ferritin Total Bilirubin AST ALT Alkaline Phosphatase Lactate Dehydrogenase Total Creatine Kinase CK-MB (CK-2) CK-MB (CK-2) % Total Protein Albumin Globulin Albumin/Globulin Ratio Vitamin B12 Folate 07/03/16 07/03/16 07/03/16 04:20 04:20 04:20 WBC 23.8 H RBC 2.76 L Hgb 8.9 L Hct 25.6 L MCV 92.8 MCH 32.2 MCHC 34.8 RDW 15.1 H Plt Count 295 MPV 9.4 Neutrophils % (Manual) 84 H Band Neutrophils % 3 H Lymphocytes % (Manual) 5 L Monocytes % (Manual) 5 Eosinophils % (Manual) 2 Myelocytes % 1 Platelet Evaluation Normal Hypochromasia Slight Retic Count Sodium 136 Potassium 4.5 Chloride 104 Carbon Dioxide 18 L Anion Gap 19 BUN 64 H Creatinine 4.5 H Est GFR ( Amer) 11 Est GFR (Non-Af Amer) 9 POC Glucose (mg/dL) Random Glucose 97 Calcium 7.6 L Iron 23 L TIBC 146 L % Saturation 16 L Ferritin Total Bilirubin 0.9 AST 301 H ALT 161 H Alkaline Phosphatase 98 Lactate Dehydrogenase Total Creatine Kinase 6098 H CK-MB (CK-2) 8.0 H CK-MB (CK-2) % 0.1 L Total Protein 6.2 Albumin 3.0 Globulin 3.2 Albumin/Globulin Ratio 0.9 L Vitamin B12 Folate 07/03/16 07/03/16 07/03/16 05:00 05:00 07:24 WBC RBC Hgb Hct MCV MCH MCHC RDW Plt Count MPV Neutrophils % (Manual) Band Neutrophils % Lymphocytes % (Manual) Monocytes % (Manual) Eosinophils % (Manual) Myelocytes % Platelet Evaluation Hypochromasia Retic Count 0.84 Sodium Potassium Chloride Carbon Dioxide Anion Gap BUN Creatinine Est GFR ( Amer) Est GFR (Non-Af Amer) POC Glucose (mg/dL) 105 Random Glucose Calcium Iron TIBC % Saturation Ferritin Cancelled Total Bilirubin AST ALT Alkaline Phosphatase Lactate Dehydrogenase 2307 H Total Creatine Kinase CK-MB (CK-2) CK-MB (CK-2) % Total Protein Albumin Globulin Albumin/Globulin Ratio Vitamin B12 Cancelled Folate Cancelled 07/03/16 07/03/16 13:42 14:00 WBC 19.2 H RBC 3.07 L Hgb 9.7 L Hct 29.1 L MCV 94.8 MCH 31.6 MCHC 33.3 RDW 15.6 H Plt Count 333 MPV 9.5 Neutrophils % (Manual) Band Neutrophils % Lymphocytes % (Manual) Monocytes % (Manual) Eosinophils % (Manual) Myelocytes % Platelet Evaluation Hypochromasia Retic Count Sodium 137 Potassium 4.9 Chloride 105 Carbon Dioxide 18 L Anion Gap 19 BUN 66 H Creatinine 4.6 H Est GFR ( Amer) 11 Est GFR (Non-Af Amer) 9 POC Glucose (mg/dL) Random Glucose 112 H Calcium 7.7 L Iron TIBC % Saturation Ferritin 978.0 Total Bilirubin 1.1 AST 335 H ALT 178 H Alkaline Phosphatase 98 Lactate Dehydrogenase Total Creatine Kinase CK-MB (CK-2) CK-MB (CK-2) % Total Protein 6.8 Albumin 3.3 Globulin 3.4 Albumin/Globulin Ratio 1.0 L Vitamin B12 Folate Critical Care Progress Note - Nutrition Nutrition: Nutrition Category Date Time Status NPO Diet [DIET] Diets 07/02/16 Dinner Ordered Attending/Attestation - Attestation I have personally seen and examined this patient.: Yes I have fully participated in the care of the patient.: Yes I have reviewed all pertinent clinical information: Yes Notes (Text): 07/03/16 16:36 75 y/o F w/ SEPSIS DIMITRY Rhabdomyolysis Acute Cholycystitis S/P open lap to remove GB. Apparently necrotic On Empiric ABX , cx to follow Remained Intubated post procedure due to increased volume ( 1600cc) and multiple sedatives on board. Passed SBT and extubated. Currently on pain control w/ Dilaudid NPO. Urine output poor w/ resolving dimitry from Rhabdomyolysis . Plans for possible HD soon. dvdt p Heparin sq tid B.P injury from Fall. Awaiting workup once more stable and need for possible MRi and/or eval from Surgical sub specialty cc time 65 min
--- NOTE | 2016-07-03 16:26 | OP ---
PROCEDURE DATE: 07/03/2016 PREOPERATIVE DIAGNOSIS: Cholecystitis. POSTOPERATIVE DIAGNOSES: Cholecystitis with necrosis. OPERATION PERFORMED: Exploratory laparoscopy, attempted laparoscopic cholecystectomy, open cholecyst ectomy. INDICATIONS: The patient is a 75-year-old in the ICU with multisystem organ failure, renal failure, a difficult diabetic. I operated this morning because I believe this to be acute cholecystitis with n ecrosis and this is what we found at the time of surgery. Discussed with the ICU attending, but not Dr. Porter, for which I apologize. DESCRIPTION OF PROCEDURE: In the operating room, the patient was identified by name, number, procedu re, laterality, my name, number, her name, number, laterality, her consent, her wrist band and birthd ay. The patient had a HIDA scan that was nonvisualization. There was an MRCP showing a markedly dis tended gallbladder, thick walled with sludge. I did not believe this to be amenable to percutaneous drainage and this was subsequently supported by the finding of a thick particulate bile that could no t be aspirated at the time of surgery. In any case, in the operating room, the patient having been i dentified, successful timeout was taken and the laparoscope was used to enter the abdomen after the V eress needle was inserted through 2 liters. The Visiport was then placed and laparoscopy was perform ed. There was no free perforation. The omentum was caked on top of the gallbladder and as a xiphoid 5 and 2 lateral 5s were placed, it became clear that there was a thick-walled gallbladder. Initiall y, there was no necrosis seen; however, the back wall was completely necrotic. 50 mL of clear bile w as initially aspirated, but it could not be completely decompressed because of the thickness of this. The Prestige was placed. However, it eventually ripped through. I tried using a toothed forceps a nd it eventually ripped through. Dissection of the end of the gallbladder and the cystic duct was so mewhat successful; however, I could not pull up on the gallbladder enough because of the necrosis mounika t we began to see. The gallbladder was then opened using a Bookwalter and the extension because of h er weight. The transverse Chris incision was made and the abdomen entered. There was free perforat ion at this point from the tears on the gallbladder from the clamps. This was aspirated cleaned, swi ped and eventually cleaned with Clorpactin. The gallbladder was seen to be necrotic. The omentum wa s alright. Inferiorly there was a large lymph node that was sent as a separate specimen. We tried t o circumscribe the gallbladder at the cystic duct. However, it was incredibly inflamed and we opted not to do that. Taking the gallbladder off the liver bed with cautery, it came initially very well. In the mid portion, there was necrosis and we entered the back wall. This necrotic material was dontae ntually completely removed, but it came with great difficulty. The gallbladder was then taken down o n the gallbladder to the end of it. This dissection was still very difficult. We were able to get t he entire gallbladder up, but the end of the gallbladder, the anatomy distally, was not clear, so it was taken at a point of election on the end of the cystic duct by the gallbladder. This was clamped and tied with Vicryl. The cystic artery was taken with a clamp and divided . The abdomen was c opiously irrigated and dried. There was nothing else untoward. A Hamzah was placed through the old p ort site and it was sutured in place. The abdomen was looked around one more time. The colon was un remarkable as was the duodenum, which had been swept away. There was no leak. There was no bleeding . There was no bile. The particulate gallbladder material was wiped off as best as possible. The i ncision was then closed with a posterior layer of Vicryl and an anterior layer of #1 Novafil. It was injected with Marcaine. The patient was taken back to the ICU in stable condition. Urine output wa s low. The patient was intubated with the anticipation of a rapid extubation. Miguel Ángel Elias MD cc: [id number] TT: 07/03/2016 16:25:51 maksim
[2016-07-03 19:18] LABS: FOLATE > 20.0 ng/mL
--- NOTE | 2016-07-03 19:48 | CP.PCM.PN ---
<Luis Conde - Last Filed: 07/03/16 19:42> Subjective - Date & Time of Evaluation Date of Evaluation: 07/03/16 Time of Evaluation: 07:00 - Subjective Subjective: Medicine progress note - Luis Conde PGY1 Patient seen and examined at bedside this morning. No acute overnight events or new complaints reported. Produced 275mL of urine overnight. Scheduled for cholecystectomy this morning per surgical team. Patient is aware of current workup/results/plan. Denies chest pain, palpitations, sOB. Objective - Vital Signs/Intake and Output Vital Signs (last 24 hours): Temp Pulse Resp BP Pulse Ox 100 F H 110 H 20 134/58 L 98 07/03/16 15:59 07/03/16 15:00 07/03/16 15:00 07/03/16 15:00 07/03/16 15:00 Intake and Output: 07/03/16 07/04/16 18:59 06:59 Intake Total 200 Output Total 280 Balance -80 - Medications Medications: Current Medications Albumin Human (Albumin Human 25% (25 Gm/100 Ml)) 25 gm IV BID [facility] Stop: 07/03/16 23:59 Last Admin: 07/03/16 17:14 Dose: 25 gm Albuterol Sulfate (Albuterol 0.5% Inhal Lorri (2.5 Mg/0.5 Ml) Ud) 2.5 mg IH [id number] [facility] Last Admin: 07/03/16 13:37 Dose: 2.5 mg Albuterol Sulfate (Albuterol 0.5% Inhal Lorri (2.5 Mg/0.5 Ml) Ud) 2.5 mg IH Q3 PRN PRN Reason: Shortness of Breath Heparin Sodium (Porcine) (Heparin) 5,000 units SC Q12 IAIN PRN Reason: Protocol Hydromorphone HCl (Dilaudid) 1 mg IVP Q4H PRN PRN Reason: Pain, moderate (4-7) Meropenem 1g/NS 100mL IVPB (Meropenem 1g/Ns 100ml Ivpb) 100 mls @ 100 mls/hr IVPB Q12 IAIN PRN Reason: Protocol Stop: 07/07/16 06:31 Last Admin: 07/03/16 10:00 Dose: 100 mls/hr Insulin Human Lispro (Humalog Low) 0 units SC ACHS IAIN PRN Reason: Protocol Last Admin: 07/03/16 16:34 Dose: Not Given Levothyroxine Sodium (Synthroid) 75 mcg PO ACB [facility] Last Admin: 07/03/16 07:09 Dose: Not Given Metoclopramide HCl (Reglan) 10 mg IV ONCE PRN PRN Reason: Nausea/Vomiting Nystatin (Nystop Topical Powder) 0 gm TOP BID [facility] Last Admin: 07/03/16 18:22 Dose: 1 applic Ondansetron HCl (Zofran Inj) 4 mg IVP Q6H PRN PRN Reason: Nausea/Vomiting Last Admin: 06/30/16 12:15 Dose: 4 mg Ondansetron HCl (Zofran Inj) 4 mg IVP ONCE PRN PRN Reason: Nausea/Vomiting Pantoprazole Sodium (Protonix Inj) 40 mg IVP DAILY [facility] Last Admin: 07/03/16 11:43 Dose: 40 mg - Labs Labs: 07/03/16 13:42 07/03/16 14:00 PT 10.4 Seconds (9.9-11.8) 07/02/16 05:30 INR 0.96 (0.93-1.08) 07/02/16 05:30 APTT 39.0 Seconds (23.7-30.8) H 07/02/16 11:00 - Constitutional Appears: Non-toxic, No Acute Distress - Head Exam Head Exam: ATRAUMATIC, NORMAL INSPECTION, NORMOCEPHALIC - Eye Exam Eye Exam: EOMI Pupil Exam: PERRL - ENT Exam ENT Exam: Mucous Membranes Moist - Neck Exam Neck Exam: Normal Inspection - Respiratory Exam Respiratory Exam: Decreased Breath Sounds. absent: Rales, Rhonchi, Wheezes - Cardiovascular Exam Cardiovascular Exam: RRR, +S1, +S2. absent: Gallop, Murmur - GI/Abdominal Exam GI & Abdominal Exam: Soft, Tenderness (mild ruq tenderness). absent: Distended , Firm, Guarding, Rigid - Extremities Exam Extremities Exam: Pedal Edema - Neurological Exam Neurological Exam: Alert, Awake, Oriented x3 - Psychiatric Exam Psychiatric exam: Normal Affect, Normal Mood - Skin Skin Exam: Dry, Intact, Normal Color, Warm Assessment and Plan - Assessment and Plan (Free Text) Plan: 75yo Female with history of CHF, DM2, TIA, hypothyroidism, chronic LE edema, history of DVT and CBD stones admitted to the ICU for rhabdomyolysis, acute Kidney injury, right arm paralysis and acute cholecystitis 1. Rhabdomyolysis -Patient received 4 liters of fluid in the ED -Patient was subsequently given IV albumin 25gm q12h -IV lasix post albumin -275cc of urine output overnight; remains oliguric -Monitor I's and O's -Daily weight -Nephrology consulted - Dr. Ron -Will continue to monitor renal function 2. Right upper extremity paralysis -CT RUE reviewed; Did not reveal any mass or hematoma involving the brachial plexus, however soft tissue density along plexus possible -RUE sensation/motor function without improvement since admission -RUE venous duplex negative for DVT -Hand surgeon consulted - Dr. Devries 3. Acute cholecystitis/CBD dilatation -HIDA scan reviewed; consistent with acute cholecystitis -Abdominal US reviewed; CBD measures 8.6mm, cholelithiasis, gallbladder lesion -CT abd/pelvis reviewed -MRCP reviewed -Patient is s/p cholecystectomy today; was originally intubated however extubated successfully in the ICU; will continue to monitor her clinical status post surgery -Continue meropenem per ID recommendations -ID consulted - Dr. Banks -Surgery consulted - Dr. Elias -GI consulted - Dr. Duncan 4. s/p fall -Cervical, maxillofacial, shoulder and hip/pelvis x-rays negative -CT Head negative for acute intracranial pathology 5. DM type 2 -Humalog low dose ISS -Patient currently NPO -Fingersticks ACHS 6. GI/DVT Prophylaxis -Protonix/SCD's Patient seen, reviewed and case discussed with attending, Dr. Porter <Mark Porter - Last Filed: 08/08/16 08:45> Objective - Vital Signs/Intake and Output Vital Signs (last 24 hours): Temp Pulse Resp BP Pulse Ox 98.4 F 82 22 147/58 L 94 L 07/13/16 08:15 07/13/16 08:15 07/13/16 08:15 07/13/16 08:15 07/13/16 08:15 - Labs Labs: 07/13/16 06:40 07/13/16 06:40 PT 10.4 Seconds (9.9-11.8) 07/02/16 05:30 INR 0.96 (0.93-1.08) 07/02/16 05:30 APTT 39.0 Seconds (23.7-30.8) H 07/02/16 11:00 Attending/Attestation - Attestation I have personally seen and examined this patient.: Yes I have fully participated in the care of the patient.: Yes I have reviewed all pertinent clinical information, including history, physical exam and plan: Yes Notes (Text): 08/08/16 08:45 Medical record note made by the resident after discussion with my direction and input after the patient was personally seen and examined by me. I have reviewed the chart and agree that the record reflects my personal performance of history, physical, data review and course for the patient that I have planned.
--- NOTE | 2016-07-03 22:13 | PN ---
DATE: 07/03/2016 A 75-year-old male with past medical history of hypertension, diabetes, hypothyroidism, cholelithiasi s, and previous right lower extremity DVT, admitted with severe rhabdomyolysis, acute renal failure f or which nephrology is following. The patient seen just after being brought back from cholecystectomy procedure. Was still intubated a t the time. Per anesthesiologist, no hypotensive events intra-op reported. Urine output approximate ly 50 mL over the past 3 hours. PHYSICAL EXAMINATION: VITAL SIGNS: This morning, blood pressure 110/53, heart rate 112, respirations 18, temperature 98.8, O2 sat 98% on the vent. GENERAL: The patient intubated, drowsy. HEENT: Moist mucous membranes. Nonicteric. CHEST: Clear to auscultation bilaterally. No rales, no rhonchi, no wheezes. HEART: S1, S2 positive. No murmurs, no rubs, no gallops. ABDOMEN: Soft. Cholecystectomy incision covered with dressing. Nondistended. EXTREMITIES: Moderately edematous legs. LABORATORY DATA: This morning, CBC: WBC 23.8, hemoglobin 8.9, hematocrit 25.6, platelets 295. Chem istry: Sodium 136, potassium 4.5, chloride 104, bicarbonate 18, BUN 64, creatinine 4.5, glucose 97, calcium 7.6, albumin 3.0. CK level 6098. Iron saturation 16%, iron 23, TIBC 146. ASSESSMENT: 1. Acute renal failure, acute kidney injury on chronic kidney disease, stage III, oliguric, renal fa ilure with acute tubular necrosis secondary to severe rhabdomyolysis. Although urine output had impr robyn yesterday, no further improvement noted and remains oliguric. Rate and rise of serum creatinine , although slow, it significantly continues to rise. No hyperkalemia noted. Mild increased anion ga p metabolic acidosis in the setting of renal failure. Chest x-ray appears to shows increased interst itial markings, although no overt pulmonary vascular congestion reported, and the patient's respirato ry status has been relatively stable. At this point, while we are hopeful for spontaneous recovery o f renal function, prognosis is guarded. No urgent indication to initiate renal replacement therapy c urrently, but will be following closely. Should continue to use IV Lasix to avoid worsening respira tory status. Doses needed will be at least 80-120 mg IV push to reach the threshold needed to achiev e diuresis. 2. Rhabdomyolysis secondary to right arm injury. CK level continues to trend downward. Very mild h ypocalcemia when corrected for serum albumin. Should avoid calcium replenishment as the sequestered calcium in the affected muscle will start to be released as muscle recovery occurs and, with concomit ant hyperphosphatemia, calcium can complex with phosphorus and deposit in vascular and soft tissues. Would replenish calcium only if symptomatic or EKG present changes present. 3. Systemic inflammatory response syndrome/sepsis. HIDA scan and MRCP consistent with cholecystitis . Underwent open cholecystectomy today with finding of severely inflamed gallbladder. Currently on meropenem 1 gram q. 12 hours. Would change frequency to q. 24 hours for advanced renal failure. 4. Metabolic acidosis relatively mild in the setting of renal failure. Should avoid giving bicarbon ate-containing fluids as this will worsen hypocalcemia. Only replenish calcium if patient is symptom atic or has EKG changes. 5. Anemia. Hemoglobin relatively stable. Iron deficient per studies done today. Would avoid givin g IV iron in the setting of acute infection. Continue to monitor. Timmy Ron MD cc: [id number] TT: 07/03/2016 22:12:16 Confirmation # [id number] Dictation # [id number] maribell
[2016-07-04] MEDS: Albuterol 0.083% Inhal Sol (2.5 mg/3 mL) UD IH SCH ×4 (02:30→19:20)
[2016-07-04 06:15] LABS: ADD MANUAL DIFF? YES; HEMATOCRIT 25.1 % (36.0-48.0); MEAN CORPUSCULAR HEMOGLOBIN 31.8 pg (25.0-35.0); MEAN CORPUSCULAR HGB CONC 33.9 g/dl (31.0-37.0); MEAN PLATELET VOLUME 9.3 fl (7.0-11.0); PLATELET COUNT 321 10^3/uL (120.0-450.0); RED CELL DISTRIBUTION WIDTH 15.4 % (11.5-14.5); WHITE BLOOD COUNT 21.1 10^3/ul (4.5-11.0)
[2016-07-04 06:47] LABS: BILIRUBIN,TOTAL 0.9 mg/dL (0.2-1.3); CALCIUM 7.9 mg/dL (8.4-10.5); POTASSIUM 4.7 mmol/L (3.6-5.0)
--- NOTE | 2016-07-04 08:03 | PN ---
DATE: 07/04/2016(615am--705am) SUBJECTIVE: The patient appears comfortable this morning. She is not short of breath at rest. PHYSICAL EXAMINATION: VITAL SIGNS: Temperature is 98.4, pulse on the monitor is 101, respiratory rate approximately 20, blood pressure 119/48. Oxygen saturation on nasal cannula is 96%. HEENT: Normocephalic. Positive ecchymosis -- right facial area. No JVD. CARDIOVASCULAR: Systolic ejection murmur at the lower left sternal border. No S3 gallop. LUNGS: Decreased breath sounds at the bases. Minimal/less rhonchi. No wheezing. EXTREMITIES: Positive for edema. No cyanosis. No clubbing. Calves are nontender to palpation. GASTROINTESTINAL: Abdomen is soft. It is mildly distended and tender to palpation. Bowel sounds are decreased. Abdomen is postoperative. SKIN: + cellulitic changes on the legs (anterior aspects). NEUROLOGIC: Limited at the present time. PERTINENT LABORATORY DATA: Chest x-ray was done this morning and reviewed. The x-ray is improved this morning -- with decreased atelectatic changes noted at the right base. Arterial blood gas was ordered for the morning -- not done yet. IMPRESSION: 1. Acute rhabdomyolysis. Status post fall. 2. Acute renal failure. 3. Sepsis syndrome. 4. Acute cholecystitis. Status post cholecystectomy. 5. Anemia. 6. Mild bronchospasm. PLAN: The patient appears comfortable this morning. She is not short of breath at rest. She states she is feeling pretty good overall. I did discuss the case with the night nurse at length. The night nurse stated that the patient had a good night. She is status post cholecystectomy. Input by Dr. Elias is noted. I did review the chest x-ray as above. The x-ray is actually improved -- with decreased atelectatic changes noted at the right base. I will continue the patient on frequent incentive spirometry. On physical exam, there is certainly less bronchospasm noted. In addition, there is no significant alveolar-arterial gradient. I will continue with the current nebulizer treatments for now. I would continue with the antibiotic coverage as per infectious disease. The leukocytosis is trending downward. Clinical status of the patient is certainly improved -- compared to the initial presentation. However, the overall status/prognosis of this patient does remain very guarded. I will discuss the above with the entire ICU team in the next few moments. I will also discuss the above with Dr. Porter later this morning. Lionel Sheehan MD cc: [id number] TT: 07/04/2016 08:03:02 Confirmation # [id number] Dictation # [id number] SALGADO
[2016-07-04] MEDS: Insulin Lispro (humaLOG) LOW Coverage SC SCH ×4 (08:16→21:50)
[2016-07-04] MEDS: Levothyroxine 75 MCG TAB PO SCH (08:18)
--- NOTE | 2016-07-04 08:42 | CP.CCUPN ---
<Diego Lama - Last Filed: 07/04/16 08:39> CCU Subjective - Physician Review Subjective (Free Text): Pt seen and examined at bedside. Pt with no acute events overnight. Pt is oliguric, producing 50 cc of urine overnight. Pt had cholecystectomy yesterday and was brought back to the ICU intubated. Pt was extubated shortly after arrival to the unit. Pt doing well overnight, no change in right arm paralysis. Pt complains of minimal abdominal pain. Denies CP, SOB, N/V/D, fevers, chills. CCU Objective - Vital Signs / Intake & Output Vital Signs (Last 4 hours): Vital Signs Temp Pulse Resp BP Pulse Ox 07/04/16 05:31 98.4 F 07/04/16 05:00 114 H 29 H 119/48 L 94 L Intake and Output (Last 8hrs): Intake & Output 07/03/16 07/04/16 07/04/16 22:59 06:59 14:59 Intake Total 200 145 Output Total 280 80 Balance -80 65 Weight 275 lb Intake: IV 145 Left Wrist 145 Oral 0 Albumin 200 Output: Drainage 55 30 Right Abdomen 55 30 Urine 225 50 Urethral (Briones) 225 50 Emesis 0 Oral Regurgitation 0 Other 0 Other: Voiding Method Indwelling Catheter # Bowel Movements 0 0 - Physical Exam Head: Positive for: Ecchymosis (Along lower right face) Pupils: Positive for: PERRL Extroacular Muscles: Positive for: EOMI Conjunctiva: Positive for: Normal. Negative for: Icteric Respiratory/Chest: Positive for: Clear to Auscultation, Decreased Breath Sounds. Negative for: Rales, Rhonchi Cardiovascular: Positive for: Regular Rate and Rhythm, Normal S1, S2. Negative for: Murmurs Abdomen: Positive for: Normal Bowel Sounds. Negative for: Tenderness, Distention, Guarding Upper Extremity: Positive for: NORMAL PULSES, Other (Unable to move right arm. No sensation in right arm. Ecchymoses on right shoulder. Exam unchanged from previous day.). Negative for: Tenderness Lower Extremity: Positive for: Normal Inspection, Edema (trace). Negative for: CALF TENDERNESS Neurological: Positive for: Speech Normal, Other (No sensation in right upper extremity to light touch or deep stimulation.). Negative for: Motor Func Grossly Intact, Normal Sensory Function Skin: Positive for: Warm, Dry, Other (Ecchymoses on right upper extremity) Psychiatric: Positive for: Alert, Oriented x 3, Normal Insight, Normal Concentration - Medications Active Medications: Active Medications Generic Name Dose Route Start Last Admin Trade Name Freq PRN Reason Stop Dose Admin Albuterol Sulfate 2.5 mg 07/04/16 02:00 07/04/16 07:23 Albuterol 0.083% Inhal Lorri (2.5 Mg/3 Ml) Ud IH 2.5 mg [id number] IAIN Administration Albuterol Sulfate 2.5 mg 07/03/16 21:13 Albuterol 0.083% Inhal Lorri (2.5 Mg/3 Ml) Ud IH Q3 PRN SOB Heparin Sodium (Porcine) 5,000 units 07/04/16 10:00 Heparin SC Q12 [facility] Protocol Hydromorphone HCl 1 mg 07/03/16 10:50 Dilaudid IVP Q4H PRN Pain, moderate (4-7) Meropenem 250 mg/ Sodium 100 mls @ 100 mls/hr 07/04/16 07:45 Chloride IVPB 07/04/16 08:44 Q12H [facility] Protocol Insulin Human Lispro 0 units 06/30/16 11:30 07/04/16 08:16 Humalog Low SC Not Given ACHS [facility] Protocol Levothyroxine Sodium 75 mcg 07/01/16 07:30 07/04/16 08:18 Synthroid PO Not Given ACB [facility] Metoclopramide HCl 10 mg 07/03/16 09:46 Reglan IV ONCE PRN Nausea/Vomiting Nystatin 0 gm 06/30/16 05:00 07/03/16 18:22 Nystop Topical Powder TOP 1 applic BID [facility] Administration Ondansetron HCl 4 mg 06/29/16 22:58 06/30/16 12:15 Zofran Inj IVP 4 mg Q6H PRN Administration Nausea/Vomiting Ondansetron HCl 4 mg 07/03/16 09:46 Zofran Inj IVP ONCE PRN Nausea/Vomiting Pantoprazole Sodium 40 mg 06/30/16 10:00 07/03/16 11:43 Protonix Inj IVP 40 mg DAILY I[facility] Administration - Patient Studies Lab Studies: Microbiology Studies 07/03/16 09:48 Gram Stain - Final Bile Lab Studies 07/04/16 07/04/16 07/03/16 Range/Units 05:30 05:30 23:34 WBC 21.1 H (4.5-11.0) 10^3/ul RBC 2.67 L (3.5-6.1) 10^6/uL Hgb 8.5 L (12.0-16.0) gm/dL Hct 25.1 L (36.0-48.0) % MCV 94.0 (80.0-105.0) fL MCH 31.8 (25.0-35.0) pg MCHC 33.9 (31.0-37.0) g/dl RDW 15.4 H (11.5-14.5) % Plt Count 321 (120.0-450.0) 10^3/uL MPV 9.3 (7.0-11.0) fl Retic Count (0.5-1.5) % Haptoglobin (43-212) mg/dL Sodium 140 (132-148) mmol/L Potassium 4.7 (3.6-5.0) mmol/L Chloride 107 (98-107) mmol/L Carbon Dioxide 17 L (21-33) mmol/L Anion Gap 21 H (10-20) BUN 74 H (7-21) mg/dL Creatinine 5.1 H (0.5-1.4) mg/dL Est GFR ( Amer) 10 Est GFR (Non-Af Amer) 8 POC Glucose (mg/dL) 106 (65-110) mg/dL Random Glucose 98 (70-110) mg/dL Calcium 7.9 L (8.4-10.5) mg/dL Ferritin Total Bilirubin 0.9 (0.2-1.3) mg/dL AST 202 H (15-39) U/L ALT 134 H (7-56) U/L Alkaline Phosphatase 83 (38-133) U/L Lactate Dehydrogenase (333-699) U/L Total Creatine Kinase 2769 H (35-230) U/L CK-MB (CK-2) (0.0-3.6) ng/mL CK-MB (CK-2) % (2.5-3.0) % Total Protein 6.0 (5.8-8.3) g/dL Albumin 3.0 (3.0-4.8) g/dL Globulin 3.1 gm/dL Albumin/Globulin Ratio 1.0 L (1.1-1.8) Vitamin B12 Folate 07/03/16 07/03/16 07/03/16 Range/Units 16:34 14:00 14:00 WBC (4.5-11.0) 10^3/ul RBC (3.5-6.1) 10^6/uL Hgb (12.0-16.0) gm/dL Hct (36.0-48.0) % MCV (80.0-105.0) fL MCH (25.0-35.0) pg MCHC (31.0-37.0) g/dl RDW (11.5-14.5) % Plt Count (120.0-450.0) 10^3/uL MPV (7.0-11.0) fl Retic Count (0.5-1.5) % Haptoglobin 474 H (43-212) mg/dL Sodium 137 (132-148) mmol/L Potassium 4.9 (3.6-5.0) mmol/L Chloride 105 (98-107) mmol/L Carbon Dioxide 18 L (21-33) mmol/L Anion Gap 19 (10-20) BUN 66 H (7-21) mg/dL Creatinine 4.6 H (0.5-1.4) mg/dL Est GFR ( Amer) 11 Est GFR (Non-Af Amer) 9 POC Glucose (mg/dL) 118 H (65-110) mg/dL Random Glucose 112 H (70-110) mg/dL Calcium 7.7 L (8.4-10.5) mg/dL Ferritin 978.0 Total Bilirubin 1.1 (0.2-1.3) mg/dL AST 335 H (15-39) U/L ALT 178 H (7-56) U/L Alkaline Phosphatase 98 (38-133) U/L Lactate Dehydrogenase (333-699) U/L Total Creatine Kinase (35-230) U/L CK-MB (CK-2) (0.0-3.6) ng/mL CK-MB (CK-2) % (2.5-3.0) % Total Protein 6.8 (5.8-8.3) g/dL Albumin 3.3 (3.0-4.8) g/dL Globulin 3.4 gm/dL Albumin/Globulin Ratio 1.0 L (1.1-1.8) Vitamin B12 934 H Folate > 20.0 07/03/16 07/03/16 07/03/16 Range/Units 13:42 12:02 07:24 WBC 19.2 H (4.5-11.0) 10^3/ul RBC 3.07 L (3.5-6.1) 10^6/uL Hgb 9.7 L (12.0-16.0) gm/dL Hct 29.1 L (36.0-48.0) % MCV 94.8 (80.0-105.0) fL MCH 31.6 (25.0-35.0) pg MCHC 33.3 (31.0-37.0) g/dl RDW 15.6 H (11.5-14.5) % Plt Count 333 (120.0-450.0) 10^3/uL MPV 9.5 (7.0-11.0) fl Retic Count (0.5-1.5) % Haptoglobin (43-212) mg/dL Sodium (132-148) mmol/L Potassium (3.6-5.0) mmol/L Chloride (98-107) mmol/L Carbon Dioxide (21-33) mmol/L Anion Gap (10-20) BUN (7-21) mg/dL Creatinine (0.5-1.4) mg/dL Est GFR ( Amer) Est GFR (Non-Af Amer) POC Glucose (mg/dL) 134 H 105 (65-110) mg/dL Random Glucose (70-110) mg/dL Calcium (8.4-10.5) mg/dL Ferritin Total Bilirubin (0.2-1.3) mg/dL AST (15-39) U/L ALT (7-56) U/L Alkaline Phosphatase (38-133) U/L Lactate Dehydrogenase (333-699) U/L Total Creatine Kinase (35-230) U/L CK-MB (CK-2) (0.0-3.6) ng/mL CK-MB (CK-2) % (2.5-3.0) % Total Protein (5.8-8.3) g/dL Albumin (3.0-4.8) g/dL Globulin gm/dL Albumin/Globulin Ratio (1.1-1.8) Vitamin B12 Folate 07/03/16 07/03/16 07/03/16 Range/Units 05:00 05:00 04:20 WBC (4.5-11.0) 10^3/ul RBC (3.5-6.1) 10^6/uL Hgb (12.0-16.0) gm/dL Hct (36.0-48.0) % MCV (80.0-105.0) fL MCH (25.0-35.0) pg MCHC (31.0-37.0) g/dl RDW (11.5-14.5) % Plt Count (120.0-450.0) 10^3/uL MPV (7.0-11.0) fl Retic Count 0.84 (0.5-1.5) % Haptoglobin (43-212) mg/dL Sodium 136 (132-148) mmol/L Potassium 4.5 (3.6-5.0) mmol/L Chloride 104 (98-107) mmol/L Carbon Dioxide 18 L (21-33) mmol/L Anion Gap 19 (10-20) BUN 64 H (7-21) mg/dL Creatinine 4.5 H (0.5-1.4) mg/dL Est GFR ( Amer) 11 Est GFR (Non-Af Amer) 9 POC Glucose (mg/dL) (65-110) mg/dL Random Glucose 97 (70-110) mg/dL Calcium 7.6 L (8.4-10.5) mg/dL Ferritin Cancelled Total Bilirubin 0.9 (0.2-1.3) mg/dL AST 301 H (15-39) U/L ALT 161 H (7-56) U/L Alkaline Phosphatase 98 (38-133) U/L Lactate Dehydrogenase 2307 H (333-699) U/L Total Creatine Kinase 6098 H (35-230) U/L CK-MB (CK-2) 8.0 H (0.0-3.6) ng/mL CK-MB (CK-2) % 0.1 L (2.5-3.0) % Total Protein 6.2 (5.8-8.3) g/dL Albumin 3.0 (3.0-4.8) g/dL Globulin 3.2 gm/dL Albumin/Globulin Ratio 0.9 L (1.1-1.8) Vitamin B12 Cancelled Folate Cancelled Laboratory Results - last 24 hr 07/03/16 07/03/16 07/03/16 04:20 05:00 05:00 WBC RBC Hgb Hct MCV MCH MCHC RDW Plt Count MPV Retic Count 0.84 Haptoglobin Sodium 136 Potassium 4.5 Chloride 104 Carbon Dioxide 18 L Anion Gap 19 BUN 64 H Creatinine 4.5 H Est GFR ( Amer) 11 Est GFR (Non-Af Amer) 9 POC Glucose (mg/dL) Random Glucose 97 Calcium 7.6 L Ferritin Cancelled Total Bilirubin 0.9 AST 301 H ALT 161 H Alkaline Phosphatase 98 Lactate Dehydrogenase 2307 H Total Creatine Kinase 6098 H CK-MB (CK-2) 8.0 H CK-MB (CK-2) % 0.1 L Total Protein 6.2 Albumin 3.0 Globulin 3.2 Albumin/Globulin Ratio 0.9 L Vitamin B12 Cancelled Folate Cancelled 07/03/16 07/03/16 07/03/16 07:24 12:02 13:42 WBC 19.2 H RBC 3.07 L Hgb 9.7 L Hct 29.1 L MCV 94.8 MCH 31.6 MCHC 33.3 RDW 15.6 H Plt Count 333 MPV 9.5 Retic Count Haptoglobin Sodium Potassium Chloride Carbon Dioxide Anion Gap BUN Creatinine Est GFR ( Amer) Est GFR (Non-Af Amer) POC Glucose (mg/dL) 105 134 H Random Glucose Calcium Ferritin Total Bilirubin AST ALT Alkaline Phosphatase Lactate Dehydrogenase Total Creatine Kinase CK-MB (CK-2) CK-MB (CK-2) % Total Protein Albumin Globulin Albumin/Globulin Ratio Vitamin B12 Folate 07/03/16 07/03/16 07/03/16 14:00 14:00 16:34 WBC RBC Hgb Hct MCV MCH MCHC RDW Plt Count MPV Retic Count Haptoglobin 474 H Sodium 137 Potassium 4.9 Chloride 105 Carbon Dioxide 18 L Anion Gap 19 BUN 66 H Creatinine 4.6 H Est GFR ( Amer) 11 Est GFR (Non-Af Amer) 9 POC Glucose (mg/dL) 118 H Random Glucose 112 H Calcium 7.7 L Ferritin 978.0 Total Bilirubin 1.1 AST 335 H ALT 178 H Alkaline Phosphatase 98 Lactate Dehydrogenase Total Creatine Kinase CK-MB (CK-2) CK-MB (CK-2) % Total Protein 6.8 Albumin 3.3 Globulin 3.4 Albumin/Globulin Ratio 1.0 L Vitamin B12 934 H Folate > 20.0 07/03/16 07/04/16 07/04/16 23:34 05:30 05:30 WBC 21.1 H RBC 2.67 L Hgb 8.5 L Hct 25.1 L MCV 94.0 MCH 31.8 MCHC 33.9 RDW 15.4 H Plt Count 321 MPV 9.3 Retic Count Haptoglobin Sodium 140 Potassium 4.7 Chloride 107 Carbon Dioxide 17 L Anion Gap 21 H BUN 74 H Creatinine 5.1 H Est GFR ( Amer) 10 Est GFR (Non-Af Amer) 8 POC Glucose (mg/dL) 106 Random Glucose 98 Calcium 7.9 L Ferritin Total Bilirubin 0.9 AST 202 H ALT 134 H Alkaline Phosphatase 83 Lactate Dehydrogenase Total Creatine Kinase 2769 H CK-MB (CK-2) CK-MB (CK-2) % Total Protein 6.0 Albumin 3.0 Globulin 3.1 Albumin/Globulin Ratio 1.0 L Vitamin B12 Folate Fingerstick Blood Sugar Results: 108 Critical Care Progress Note - Nutrition Nutrition: Nutrition Category Date Time Status NPO Diet [DIET] Diets 07/02/16 Dinner Ordered Assessment/Plan - Assessment and Plan (Free Text) Plan: 5 y/o F with PMH of CHF, DM, TIA, and hypothyroidism presents with severe sepsis s/p cholecystectomy secondary to acute cholecystitis in the setting of rhabdomyolysis complicated by acute kidney injury and transaminitis along with right arm paralysis. Pt stable this morning, with continued elevation in creatinine. Pt is still oliguric. Transaminitis improving, but elevated due to rhabdomyolysis. Right arm paralysis remains unchanged. Neuro: AAOx3 Right arm paralysis unchanged Supportive therapy for right arm, no surgical intervention at this time Cardio: Hemodynamically stable Goal MAP >65 Pulm: Maintain O2 sat >90% NC @ 3L Monitor for respiratory distress GI: Will advance diet to liquids, as per surgery. LFT's improving GI following, Dr. Duncan. Endo: Maintain euglycemia, target glucose between 140-180 ISS Nephro: DIMITRY on CKD secondary to rhabdomyolysis and ATN. Creatinine worsening. Oliguric, urine output 50 cc overnight Monitor creatinine and urine output closely Dr. Ron consulted, No dialysis indicated at this time. Maintain euvolemia Heme/ID: Afebrile, leukocytosis stable Continue Merrem. Dosage changed to account for worsening renal function Blood, urine, and stool cultures negative at this time Maintain normothermia PPX: Protonix Zofran SCDs Seen, reviewed, and discussed with attending Daina, PGY-1 <Keli TO,Paige H - Last Filed: 07/04/16 09:36> CCU Objective - Vital Signs / Intake & Output Vital Signs (Last 4 hours): Vital Signs Temp Pulse Resp BP Pulse Ox 07/04/16 08:01 113 H 24 140/108 H 100 07/04/16 08:00 114 H 11 L 100 07/04/16 07:01 109 H 20 108/81 96 07/04/16 07:00 110 H 20 92 L 07/04/16 06:10 103 H 24 07/04/16 06:09 101 H 22 07/04/16 06:00 107 H 18 07/04/16 05:31 98.4 F Intake and Output (Last 8hrs): Intake & Output 07/03/16 07/04/16 07/04/16 22:59 06:59 14:59 Intake Total 200 145 Output Total 280 80 Balance -80 65 Weight 275 lb Intake: IV 145 Left Wrist 145 Oral 0 Albumin 200 Output: Drainage 55 30 Right Abdomen 55 30 Urine 225 50 Urethral (Briones) 225 50 Emesis 0 Oral Regurgitation 0 Other 0 Other: Voiding Method Indwelling Catheter # Bowel Movements 0 0 - Medications Active Medications: Active Medications Generic Name Dose Route Start Last Admin Trade Name Freq PRN Reason Stop Dose Admin Albuterol Sulfate 2.5 mg 07/04/16 02:00 07/04/16 07:23 Albuterol 0.083% Inhal Lorri (2.5 Mg/3 Ml) Ud IH 2.5 mg [id number] IAIN Administration Albuterol Sulfate 2.5 mg 07/03/16 21:13 Albuterol 0.083% Inhal Lorri (2.5 Mg/3 Ml) Ud IH Q3 PRN SOB Heparin Sodium (Porcine) 5,000 units 07/04/16 10:00 Heparin SC Q12 [facility] Protocol Hydromorphone HCl 1 mg 07/03/16 10:50 Dilaudid IVP Q4H PRN Pain, moderate (4-7) Insulin Human Lispro 0 units 06/30/16 11:30 07/04/16 08:16 Humalog Low SC Not Given ACHS [facility] Protocol Levothyroxine Sodium 75 mcg 07/01/16 07:30 07/04/16 08:18 Synthroid PO Not Given ACB [facility] Metoclopramide HCl 10 mg 07/03/16 09:46 Reglan IV ONCE PRN Nausea/Vomiting Nystatin 0 gm 06/30/16 05:00 07/03/16 18:22 Nystop Topical Powder TOP 1 applic BID IAIN Administration Ondansetron HCl 4 mg 06/29/16 22:58 06/30/16 12:15 Zofran Inj IVP 4 mg Q6H PRN Administration Nausea/Vomiting Ondansetron HCl 4 mg 07/03/16 09:46 Zofran Inj IVP ONCE PRN Nausea/Vomiting Pantoprazole Sodium 40 mg 06/30/16 10:00 07/03/16 11:43 Protonix Inj IVP 40 mg DAILY [facility] Administration - Patient Studies Lab Studies: Microbiology Studies 07/03/16 09:48 Gram Stain - Final Bile Lab Studies 07/04/16 07/04/16 07/03/16 Range/Units 05:30 05:30 23:34 WBC 21.1 H (4.5-11.0) 10^3/ul RBC 2.67 L (3.5-6.1) 10^6/uL Hgb 8.5 L (12.0-16.0) gm/dL Hct 25.1 L (36.0-48.0) % MCV 94.0 (80.0-105.0) fL MCH 31.8 (25.0-35.0) pg MCHC 33.9 (31.0-37.0) g/dl RDW 15.4 H (11.5-14.5) % Plt Count 321 (120.0-450.0) 10^3/uL MPV 9.3 (7.0-11.0) fl Haptoglobin (43-212) mg/dL Sodium 140 (132-148) mmol/L Potassium 4.7 (3.6-5.0) mmol/L Chloride 107 (98-107) mmol/L Carbon Dioxide 17 L (21-33) mmol/L Anion Gap 21 H (10-20) BUN 74 H (7-21) mg/dL Creatinine 5.1 H (0.5-1.4) mg/dL Est GFR ( Amer) 10 Est GFR (Non-Af Amer) 8 POC Glucose (mg/dL) 106 (65-110) mg/dL Random Glucose 98 (70-110) mg/dL Calcium 7.9 L (8.4-10.5) mg/dL Ferritin Total Bilirubin 0.9 (0.2-1.3) mg/dL AST 202 H (15-39) U/L ALT 134 H (7-56) U/L Alkaline Phosphatase 83 (38-133) U/L Lactate Dehydrogenase (333-699) U/L Total Creatine Kinase 2769 H (35-230) U/L CK-MB (CK-2) 4.3 H (0.0-3.6) ng/mL CK-MB (CK-2) % Cancelled (2.5-3.0) % Total Protein 6.0 (5.8-8.3) g/dL Albumin 3.0 (3.0-4.8) g/dL Globulin 3.1 gm/dL Albumin/Globulin Ratio 1.0 L (1.1-1.8) Vitamin B12 Folate 07/03/16 07/03/16 07/03/16 Range/Units 16:34 14:00 14:00 WBC (4.5-11.0) 10^3/ul RBC (3.5-6.1) 10^6/uL Hgb (12.0-16.0) gm/dL Hct (36.0-48.0) % MCV (80.0-105.0) fL MCH (25.0-35.0) pg MCHC (31.0-37.0) g/dl RDW (11.5-14.5) % Plt Count (120.0-450.0) 10^3/uL MPV (7.0-11.0) fl Haptoglobin 474 H (43-212) mg/dL Sodium 137 (132-148) mmol/L Potassium 4.9 (3.6-5.0) mmol/L Chloride 105 (98-107) mmol/L Carbon Dioxide 18 L (21-33) mmol/L Anion Gap 19 (10-20) BUN 66 H (7-21) mg/dL Creatinine 4.6 H (0.5-1.4) mg/dL Est GFR ( Amer) 11 Est GFR (Non-Af Amer) 9 POC Glucose (mg/dL) 118 H (65-110) mg/dL Random Glucose 112 H (70-110) mg/dL Calcium 7.7 L (8.4-10.5) mg/dL Ferritin 978.0 Total Bilirubin 1.1 (0.2-1.3) mg/dL AST 335 H (15-39) U/L ALT 178 H (7-56) U/L Alkaline Phosphatase 98 (38-133) U/L Lactate Dehydrogenase (333-699) U/L Total Creatine Kinase (35-230) U/L CK-MB (CK-2) (0.0-3.6) ng/mL CK-MB (CK-2) % (2.5-3.0) % Total Protein 6.8 (5.8-8.3) g/dL Albumin 3.3 (3.0-4.8) g/dL Globulin 3.4 gm/dL Albumin/Globulin Ratio 1.0 L (1.1-1.8) Vitamin B12 934 H Folate > 20.0 07/03/16 07/03/16 07/03/16 Range/Units 13:42 12:02 05:00 WBC 19.2 H (4.5-11.0) 10^3/ul RBC 3.07 L (3.5-6.1) 10^6/uL Hgb 9.7 L (12.0-16.0) gm/dL Hct 29.1 L (36.0-48.0) % MCV 94.8 (80.0-105.0) fL MCH 31.6 (25.0-35.0) pg MCHC 33.3 (31.0-37.0) g/dl RDW 15.6 H (11.5-14.5) % Plt Count 333 (120.0-450.0) 10^3/uL MPV 9.5 (7.0-11.0) fl Haptoglobin (43-212) mg/dL Sodium (132-148) mmol/L Potassium (3.6-5.0) mmol/L Chloride (98-107) mmol/L Carbon Dioxide (21-33) mmol/L Anion Gap (10-20) BUN (7-21) mg/dL Creatinine (0.5-1.4) mg/dL Est GFR ( Amer) Est GFR (Non-Af Amer) POC Glucose (mg/dL) 134 H (65-110) mg/dL Random Glucose (70-110) mg/dL Calcium (8.4-10.5) mg/dL Ferritin Cancelled Total Bilirubin (0.2-1.3) mg/dL AST (15-39) U/L ALT (7-56) U/L Alkaline Phosphatase (38-133) U/L Lactate Dehydrogenase 2307 H (333-699) U/L Total Creatine Kinase (35-230) U/L CK-MB (CK-2) (0.0-3.6) ng/mL CK-MB (CK-2) % (2.5-3.0) % Total Protein (5.8-8.3) g/dL Albumin (3.0-4.8) g/dL Globulin gm/dL Albumin/Globulin Ratio (1.1-1.8) Vitamin B12 Cancelled Folate Cancelled 07/03/16 Range/Units 04:20 WBC (4.5-11.0) 10^3/ul RBC (3.5-6.1) 10^6/uL Hgb (12.0-16.0) gm/dL Hct (36.0-48.0) % MCV (80.0-105.0) fL MCH (25.0-35.0) pg MCHC (31.0-37.0) g/dl RDW (11.5-14.5) % Plt Count (120.0-450.0) 10^3/uL MPV (7.0-11.0) fl Haptoglobin (43-212) mg/dL Sodium 136 (132-148) mmol/L Potassium 4.5 (3.6-5.0) mmol/L Chloride 104 (98-107) mmol/L Carbon Dioxide 18 L (21-33) mmol/L Anion Gap 19 (10-20) BUN 64 H (7-21) mg/dL Creatinine 4.5 H (0.5-1.4) mg/dL Est GFR ( Amer) 11 Est GFR (Non-Af Amer) 9 POC Glucose (mg/dL) (65-110) mg/dL Random Glucose 97 (70-110) mg/dL Calcium 7.6 L (8.4-10.5) mg/dL Ferritin Total Bilirubin 0.9 (0.2-1.3) mg/dL AST 301 H (15-39) U/L ALT 161 H (7-56) U/L Alkaline Phosphatase 98 (38-133) U/L Lactate Dehydrogenase (333-699) U/L Total Creatine Kinase 6098 H (35-230) U/L CK-MB (CK-2) 8.0 H (0.0-3.6) ng/mL CK-MB (CK-2) % 0.1 L (2.5-3.0) % Total Protein 6.2 (5.8-8.3) g/dL Albumin 3.0 (3.0-4.8) g/dL Globulin 3.2 gm/dL Albumin/Globulin Ratio 0.9 L (1.1-1.8) Vitamin B12 Folate Laboratory Results - last 24 hr 07/03/16 07/03/16 07/03/16 04:20 05:00 12:02 WBC RBC Hgb Hct MCV MCH MCHC RDW Plt Count MPV Haptoglobin Sodium 136 Potassium 4.5 Chloride 104 Carbon Dioxide 18 L Anion Gap 19 BUN 64 H Creatinine 4.5 H Est GFR ( Amer) 11 Est GFR (Non-Af Amer) 9 POC Glucose (mg/dL) 134 H Random Glucose 97 Calcium 7.6 L Ferritin Cancelled Total Bilirubin 0.9 AST 301 H ALT 161 H Alkaline Phosphatase 98 Lactate Dehydrogenase 2307 H Total Creatine Kinase 6098 H CK-MB (CK-2) 8.0 H CK-MB (CK-2) % 0.1 L Total Protein 6.2 Albumin 3.0 Globulin 3.2 Albumin/Globulin Ratio 0.9 L Vitamin B12 Cancelled Folate Cancelled 07/03/16 07/03/16 07/03/16 13:42 14:00 14:00 WBC 19.2 H RBC 3.07 L Hgb 9.7 L Hct 29.1 L MCV 94.8 MCH 31.6 MCHC 33.3 RDW 15.6 H Plt Count 333 MPV 9.5 Haptoglobin 474 H Sodium 137 Potassium 4.9 Chloride 105 Carbon Dioxide 18 L Anion Gap 19 BUN 66 H Creatinine 4.6 H Est GFR ( Amer) 11 Est GFR (Non-Af Amer) 9 POC Glucose (mg/dL) Random Glucose 112 H Calcium 7.7 L Ferritin 978.0 Total Bilirubin 1.1 AST 335 H ALT 178 H Alkaline Phosphatase 98 Lactate Dehydrogenase Total Creatine Kinase CK-MB (CK-2) CK-MB (CK-2) % Total Protein 6.8 Albumin 3.3 Globulin 3.4 Albumin/Globulin Ratio 1.0 L Vitamin B12 934 H Folate > 20.0 07/03/16 07/03/16 07/04/16 16:34 23:34 05:30 WBC 21.1 H RBC 2.67 L Hgb 8.5 L Hct 25.1 L MCV 94.0 MCH 31.8 MCHC 33.9 RDW 15.4 H Plt Count 321 MPV 9.3 Haptoglobin Sodium Potassium Chloride Carbon Dioxide Anion Gap BUN Creatinine Est GFR ( Amer) Est GFR (Non-Af Amer) POC Glucose (mg/dL) 118 H 106 Random Glucose Calcium Ferritin Total Bilirubin AST ALT Alkaline Phosphatase Lactate Dehydrogenase Total Creatine Kinase CK-MB (CK-2) CK-MB (CK-2) % Total Protein Albumin Globulin Albumin/Globulin Ratio Vitamin B12 Folate 07/04/16 05:30 WBC RBC Hgb Hct MCV MCH MCHC RDW Plt Count MPV Haptoglobin Sodium 140 Potassium 4.7 Chloride 107 Carbon Dioxide 17 L Anion Gap 21 H BUN 74 H Creatinine 5.1 H Est GFR ( Amer) 10 Est GFR (Non-Af Amer) 8 POC Glucose (mg/dL) Random Glucose 98 Calcium 7.9 L Ferritin Total Bilirubin 0.9 AST 202 H ALT 134 H Alkaline Phosphatase 83 Lactate Dehydrogenase Total Creatine Kinase 2769 H CK-MB (CK-2) 4.3 H CK-MB (CK-2) % Cancelled Total Protein 6.0 Albumin 3.0 Globulin 3.1 Albumin/Globulin Ratio 1.0 L Vitamin B12 Folate Critical Care Progress Note - Nutrition Nutrition: Nutrition Category Date Time Status NPO Diet [DIET] Diets 07/02/16 Dinner Ordered Attending/Attestation - Attestation I have personally seen and examined this patient.: Yes I have fully participated in the care of the patient.: Yes I have reviewed all pertinent clinical information: Yes Notes (Text): 07/04/16 09:28 75 y/o F s/p GB removal (OPEN) w/ resolving Rhabdomyolysis Rhabdomyolysis /ATn/Oliguria Minimal Urine output , CK improving <4000 Increased Fluid overload I&O's No signs of Uremia or worsening Acidosis. Nephrology watching for need of HD soon. On Lasix and Albumin per PCP to help with urine output , although dosing is low and may not beneficial . Elevated WBC Likely sepsis from GB . Day #2 GB removal. ON empiric abx awaiting CX results. Surgical Team following. Post Extubation following surgery Poor lung volumes post Abdominal Surgery . ICS and Chest PT needed. High risk for respiratory failure R Arm weakness BP injury from fall and Hematoma Can evaluate further once stable from ICU prospective. May need MRI and Surgical SUb specialty reccs. Or transfer? DVT P Heparin sq TID cc time 65 min
--- NOTE | 2016-07-04 10:04 | RAD ---
HISTORY: follow up COMPARISON: 07/03/2016 FINDINGS: LUNGS: No active pulmonary disease. PLEURA: No significant pleural effusion identified, no pneumothorax apparent. CARDIOVASCULAR: Moderate cardiomegaly. Mild vascular congestion decreased from prior study OSSEOUS STRUCTURES: No significant abnormalities. VISUALIZED UPPER ABDOMEN: Normal. OTHER FINDINGS: None. IMPRESSION: Improved vascular congestion
--- NOTE | 2016-07-04 10:05 | PN ---
DATE: 07/04/2016 The patient is in bed in ICU 128 bed 1. She was seen earlier. She is awake and alert. She tolerate d her procedure well. No fevers. PHYSICAL EXAMINATION: VITAL SIGNS: Temperature is 98, T-max of 100, blood pressure is 140/100, respiratory rate of 20 and up to 24, heart rate of 109. HEENT: Unremarkable. NECK: Supple. LUNGS: Have decreased breath sounds. HEART: Normal S1, S2. ABDOMEN: Soft, nontender. LABORATORY DATA: Reveals a white count of 21,000 this morning. Chemistries reveal BUN of 74, creati nine is 5.1. Urinalysis is noted. Microbiology reveals the body fluid culture is pending. The stoo l for C. diff from 06/30/2016 is negative antigen, negative toxin. DrRomaine ____ note is reviewed. Dr. Franklin fuentes's note is reviewed. REVIEW OF ORDERS: Reveals the patient's antibiotics to be off. ASSESSMENT AND PLAN: A 75-year-old female with severe sepsis with acute renal failure and acute conchita re rhabdomyolysis and cholecystitis with biliary tree cholelithiasis, hypertension, chronic congestiv e heart failure, diabetes mellitus, morbid obesity with body mass index of 47, hypothyroidism, histor y of hysterectomy and has a history of bilateral ____ bilateral knee replacement, and dyslipidemia; p ostprocedure, today is postoperative day #1. The patient had an open cholecystectomy; postoperative day #1. Concerned about the persistence of leukocytosis. We will check on the pathology report and follow the white count and continue the meropenem. Will follow with you. Ang Banks MD cc: 350 TT: 07/04/2016 10:01:29 Confirmation # [id number] Dictation # [id number] mn 07/04/2016 09:04:36
--- NOTE | 2016-07-04 10:23 | CP.PCM.PN ---
<JoaquinarosangelaLuis - Last Filed: 07/04/16 14:33> Subjective - Date & Time of Evaluation Date of Evaluation: 07/04/16 Time of Evaluation: 10:19 - Subjective Subjective: Medicine progress note - Lusi Taylorhans PGY1 Patient was seen and examined at bedside this morning. Per nursing and patient, there were no acute overnight events or new complaints. She had produced 50cc overnight and thus remains oliguric. We will discuss with nephrology the current course of action given her lack of renal improvement. She is currently s /p cholecystectomy (POD #1). Denies chest pain, palpitations, SOB. Still lacks sensation to her right arm and is unable to move it. Objective - Vital Signs/Intake and Output Vital Signs (last 24 hours): Temp Pulse Resp BP Pulse Ox 98.4 F 113 H 24 140/108 H 100 07/04/16 05:31 07/04/16 08:01 07/04/16 08:01 07/04/16 08:01 07/04/16 08:01 Intake and Output: 07/04/16 07/04/16 06:59 18:59 Intake Total 145 Output Total 80 Balance 65 - Medications Medications: Current Medications Albuterol Sulfate (Albuterol 0.083% Inhal Lorri (2.5 Mg/3 Ml) Ud) 2.5 mg IH [id number] [facility] Last Admin: 07/04/16 07:23 Dose: 2.5 mg Albuterol Sulfate (Albuterol 0.083% Inhal Lorri (2.5 Mg/3 Ml) Ud) 2.5 mg IH Q3 PRN PRN Reason: SOB Heparin Sodium (Porcine) (Heparin) 5,000 units SC Q12 [facility] PRN Reason: Protocol Last Admin: 07/04/16 10:10 Dose: 5,000 units Hydromorphone HCl (Dilaudid) 1 mg IVP Q4H PRN PRN Reason: Pain, moderate (4-7) Meropenem 250 mg/ Sodium (Chloride) 100 mls @ 100 mls/hr IVPB Q12H [facility] PRN Reason: Protocol Stop: 07/13/16 09:46 Last Admin: 07/04/16 10:15 Dose: Not Given Insulin Human Lispro (Humalog Low) 0 units SC ACHS [facility] PRN Reason: Protocol Last Admin: 07/04/16 08:16 Dose: Not Given Levothyroxine Sodium (Synthroid) 75 mcg PO ACB [facility] Last Admin: 07/04/16 08:18 Dose: Not Given Metoclopramide HCl (Reglan) 10 mg IV ONCE PRN PRN Reason: Nausea/Vomiting Nystatin (Nystop Topical Powder) 0 gm TOP BID [facility] Last Admin: 07/03/16 18:22 Dose: 1 applic Ondansetron HCl (Zofran Inj) 4 mg IVP Q6H PRN PRN Reason: Nausea/Vomiting Last Admin: 06/30/16 12:15 Dose: 4 mg Ondansetron HCl (Zofran Inj) 4 mg IVP ONCE PRN PRN Reason: Nausea/Vomiting Pantoprazole Sodium (Protonix Inj) 40 mg IVP DAILY [facility] Last Admin: 07/04/16 10:10 Dose: 40 mg - Labs Labs: 07/04/16 05:30 07/04/16 05:30 PT 10.4 Seconds (9.9-11.8) 07/02/16 05:30 INR 0.96 (0.93-1.08) 07/02/16 05:30 APTT 39.0 Seconds (23.7-30.8) H 07/02/16 11:00 - Constitutional Appears: Non-toxic, No Acute Distress - Head Exam Head Exam: ATRAUMATIC, NORMAL INSPECTION, NORMOCEPHALIC - Eye Exam Eye Exam: EOMI, PERRL - ENT Exam ENT Exam: Mucous Membranes Moist - Neck Exam Neck Exam: Normal Inspection - Respiratory Exam Respiratory Exam: Clear to Ausculation Bilateral. absent: Rales, Rhonchi, Wheezes - Cardiovascular Exam Cardiovascular Exam: RRR, +S1, +S2. absent: Clicks, Gallop, Rubs, Murmur - GI/Abdominal Exam GI & Abdominal Exam: Soft, Normal Bowel Sounds. absent: Firm, Guarding, Rigid, Tenderness, Rebound - Extremities Exam Extremities Exam: Pedal Edema - Neurological Exam Neurological Exam: Alert, Awake, Oriented x3 - Psychiatric Exam Psychiatric exam: Normal Affect, Normal Mood - Skin Skin Exam: Dry, Intact, Normal Color, Warm Assessment and Plan - Assessment and Plan (Free Text) Plan: 75yo Female with history of CHF, DM2, TIA, hypothyroidism, chronic LE edema, history of DVT and CBD stones admitted to the ICU for rhabdomyolysis, acute Kidney injury, right arm paralysis and acute cholecystitis 1. Rhabdomyolysis -Patient received 4 liters of fluid in the ED -Patient was subsequently given IV albumin 25gm q12h and IV lasix ~1hr post albumin -50cc of urine output overnight and 75cc as of this morning -Patient remains oliguric and her renal function has yet to show signs of improvement. -Discussed with nephrology team today regarding the current status of her renal function. Patient will likely need to be dialyzed tomorrow and thus IR was consulted today for placement of a temporary dialysis catheter. -Monitor I's and O's -Daily weight -IR consulted - Dr. Cui -Nephrology consulted - Dr. Ron 2. Right upper extremity paralysis -CT RUE reviewed; Did not reveal any mass or hematoma involving the brachial plexus, however soft tissue density along plexus possible -RUE sensation/motor function without improvement since admission -RUE venous duplex negative for DVT -Hand surgeon consulted - Dr. Devries 3. Acute cholecystitis/CBD dilatation -HIDA scan reviewed; consistent with acute cholecystitis -Abdominal US reviewed; CBD measures 8.6mm, cholelithiasis, gallbladder lesion -CT abd/pelvis reviewed -MRCP reviewed -Patient is s/p cholecystectomy today; was originally intubated however extubated successfully in the ICU; will continue to monitor her clinical status post surgery -Continue meropenem per ID recommendations -ID consulted - Dr. Banks -Surgery consulted - Dr. Elias -GI consulted - Dr. Duncan 4. s/p fall -Cervical, maxillofacial, shoulder and hip/pelvis x-rays negative -CT Head negative for acute intracranial pathology 5. DM type 2 -Humalog low dose ISS -Patient currently NPO -Fingersticks ACHS 6. GI/DVT Prophylaxis -Protonix/SCD's Patient seen, reviewed and case discussed with attending, Dr. Porter <Roosevelt Beltran - Last Filed: 07/11/16 09:23> Objective - Vital Signs/Intake and Output Vital Signs (last 24 hours): Temp Pulse Resp BP Pulse Ox 97.9 F 81 22 153/57 H 93 L 07/11/16 07:30 07/11/16 07:30 07/11/16 07:30 07/11/16 07:30 07/11/16 07:30 Intake and Output: 07/11/16 07/11/16 06:59 18:59 Intake Total 720 Output Total 700 Balance 20 - Medications Medications: Current Medications Acetylcysteine (Acetylcysteine 20%) 3 ml IH BID [facility] Last Admin: 07/11/16 07:20 Dose: 3 ml Albuterol Sulfate (Albuterol 0.083% Inhal Lorri (2.5 Mg/3 Ml) Ud) 2.5 mg IH [id number] [facility] Last Admin: 07/11/16 07:20 Dose: 2.5 mg Albuterol Sulfate (Albuterol 0.083% Inhal Lorri (2.5 Mg/3 Ml) Ud) 2.5 mg IH Q3 PRN PRN Reason: SOB Last Admin: 07/11/16 05:01 Dose: 2.5 mg Benzocaine/Menthol (Cepacol Sore Throat) 1 adin MT Q2H PRN PRN Reason: Sore Throat Docusate Sodium (Colace) 100 mg PO BID [facility] Last Admin: 07/10/16 17:16 Dose: 100 mg Ferrous Sulfate (Feosol) 324 mg PO BID [facility] Last Admin: 07/10/16 17:17 Dose: 324 mg Guaifenesin/Dextromethorphan (Robitussin Dm) 5 ml PO Q4H PRN PRN Reason: Cough Last Admin: 07/10/16 02:53 Dose: 5 ml Heparin Sodium (Porcine) (Heparin) 5,000 units SC Q12 [facility] PRN Reason: Protocol Last Admin: 07/10/16 21:34 Dose: 5,000 units Meropenem 250 mg/ Sodium (Chloride) 100 mls @ 100 mls/hr IVPB Q12H [facility] PRN Reason: Protocol Stop: 07/13/16 09:46 Last Admin: 07/10/16 21:34 Dose: 100 mls/hr Sodium Chloride (Sodium Chloride 0.9%) 1,000 mls @ 80 mls/hr IV .[id number] [facility] Last Admin: 07/11/16 08:46 Dose: Not Given Insulin Human Lispro (Humalog Low) 0 units SC ACHS [facility] PRN Reason: Protocol Last Admin: 07/11/16 08:42 Dose: Not Given Levothyroxine Sodium (Synthroid) 75 mcg PO 0630 [facility] Last Admin: 05/05/17 06:18 Dose: 75 mcg Midodrine (Proamatine) 10 mg PO Q8H [facility] Last Admin: 07/11/16 08:45 Dose: Not Given Nystatin (Nystop Topical Powder) 0 gm TOP BID [facility] Last Admin: 07/10/16 17:19 Dose: 1 applic Nystatin/Triamcinolone Acetonide (Nystatin/Triamcinolone Cream) 0 ea TOP BID [facility] Last Admin: 07/10/16 17:19 Dose: 1 applic Ondansetron HCl (Zofran Inj) 4 mg IVP Q6H PRN PRN Reason: Nausea/Vomiting Last Admin: 06/30/16 12:15 Dose: 4 mg Pantoprazole Sodium (Protonix Inj) 40 mg IVP DAILY [facility] Last Admin: 07/10/16 09:20 Dose: 40 mg - Labs Labs: 07/11/16 09:00 07/10/16 06:00 PT 10.4 Seconds (9.9-11.8) 07/02/16 05:30 INR 0.96 (0.93-1.08) 07/02/16 05:30 APTT 39.0 Seconds (23.7-30.8) H 07/02/16 11:00 Attending/Attestation - Attestation I have personally seen and examined this patient.: Yes I have fully participated in the care of the patient.: Yes I have reviewed all pertinent clinical information, including history, physical exam and plan: Yes Notes (Text): 07/11/16 09:23 Medical record note made by the resident after discussion with my direction and input after the patient was personally seen and examined by me. I have reviewed the chart and agree that the record accurately reflects by personal performance of the history, physical exam, data review, and medical decision-making, in the course for the patient. I have also personally directed the plan of care.
[2016-07-04] MEDS: Nystatin 100,000 Units/gm Topical Pow(15 gm) TOP SCH ×2 (10:36→19:08)
[2016-07-04 11:30] LABS: NEUTROPHIL 92 % (50.0-70.0)
[2016-07-04 11:31] LABS: ANISOCYTOSIS 1+; HYPOCHROMIA 1+; PLATELET ESTIMATE NORMAL (NORMAL); POLYCHROMASIA SLIGHT
[2016-07-04 11:32] LABS: LARGE PLATELETS PRESENT; OVALOCYTES SLIGHT; TOXIC GRANULATION SLIGHT
--- NOTE | 2016-07-04 14:08 | CP.PCM.PN ---
Subjective - Date & Time of Evaluation Date of Evaluation: 07/04/16 Time of Evaluation: 14:05 - Subjective Subjective: Surgery: Dr. Elias Pt seen and examined. No acute events overnight. Resting comfortably in bed. No pain. No F/C. No N/V. Pt still has no fxn of R arm Objective - Vital Signs/Intake and Output Vital Signs (last 24 hours): Temp Pulse Resp BP Pulse Ox 98.4 F 106 H 18 153/109 H 95 07/04/16 05:31 07/04/16 13:02 07/04/16 13:02 07/04/16 13:02 07/04/16 13:02 Intake and Output: 07/04/16 07/04/16 06:59 18:59 Intake Total 145 Output Total 80 Balance 65 - Medications Medications: Current Medications Albuterol Sulfate (Albuterol 0.083% Inhal Lorri (2.5 Mg/3 Ml) Ud) 2.5 mg IH [id number] [facility] Last Admin: 07/04/16 13:11 Dose: 2.5 mg Albuterol Sulfate (Albuterol 0.083% Inhal Lorri (2.5 Mg/3 Ml) Ud) 2.5 mg IH Q3 PRN PRN Reason: SOB Heparin Sodium (Porcine) (Heparin) 5,000 units SC Q12 [facility] PRN Reason: Protocol Last Admin: 07/04/16 10:10 Dose: 5,000 units Hydromorphone HCl (Dilaudid) 1 mg IVP Q4H PRN PRN Reason: Pain, moderate (4-7) Meropenem 250 mg/ Sodium (Chloride) 100 mls @ 100 mls/hr IVPB Q12H [facility] PRN Reason: Protocol Stop: 07/13/16 09:46 Last Admin: 07/04/16 10:15 Dose: Not Given Insulin Human Lispro (Humalog Low) 0 units SC ACHS [facility] PRN Reason: Protocol Last Admin: 07/04/16 11:39 Dose: Not Given Levothyroxine Sodium (Synthroid) 75 mcg PO ACB [facility] Last Admin: 07/04/16 08:18 Dose: Not Given Metoclopramide HCl (Reglan) 10 mg IV ONCE PRN PRN Reason: Nausea/Vomiting Nystatin (Nystop Topical Powder) 0 gm TOP BID [facility] Last Admin: 07/04/16 10:36 Dose: 1 applic Ondansetron HCl (Zofran Inj) 4 mg IVP Q6H PRN PRN Reason: Nausea/Vomiting Last Admin: 06/30/16 12:15 Dose: 4 mg Ondansetron HCl (Zofran Inj) 4 mg IVP ONCE PRN PRN Reason: Nausea/Vomiting Pantoprazole Sodium (Protonix Inj) 40 mg IVP DAILY [facility] Last Admin: 07/04/16 10:10 Dose: 40 mg - Labs Labs: 07/04/16 05:30 07/04/16 05:30 PT 10.4 Seconds (9.9-11.8) 07/02/16 05:30 INR 0.96 (0.93-1.08) 07/02/16 05:30 APTT 39.0 Seconds (23.7-30.8) H 07/02/16 11:00 - Constitutional Appears: Non-toxic, No Acute Distress - Head Exam Head Exam: NORMOCEPHALIC - Eye Exam Eye Exam: EOMI. absent: Scleral icterus - ENT Exam ENT Exam: Mucous Membranes Moist - Respiratory Exam Respiratory Exam: NORMAL BREATHING PATTERN. absent: Accessory Muscle Use, Respiratory Distress - GI/Abdominal Exam GI & Abdominal Exam: Soft. absent: Distended, Firm, Guarding, Rigid, Tenderness , Rebound Additional comments: Dressing in place, C/D/I RUQ xander in place - Extremities Exam Additional comments: RUE: no sensation distal to elbow. No motor fxn. Distal pulse palpable. compartments soft - Neurological Exam Neurological Exam: Alert, Awake, Oriented x3 Assessment and Plan - Assessment and Plan (Free Text) Assessment: 75F w. cholecystitis, s/p open cholecystectomy POD#1 -Xander 30cc/12hr serosang -Renal Fxn declining -CLD, ADAT -c/w abx -c/w pain management -will d/w attending Zemaitis PGY2
--- NOTE | 2016-07-04 14:32 | PN ---
DATE: 07/04/2016 This is a GI followup note. The patient was seen and examined earlier this morning. The patient is status post cholecystectomy w ith attempted laparotomy. She is postop day #1. The patient was found to have a necrotic gallbladde r. The patient denies any shortness of breath or chest pain. No reports of any nausea, vomiting, fe elis, or chills. Does have some postop pain, but is comfortable. The patient with low urine output o vernight. VITAL SIGNS: Temperature was 98.4, blood pressure was 131/53, pulse is 102, respirations 21, 95 O2 s aturation. LABORATORY DATA: WBC 21.1, H and H is 8.5 and 25.1, platelets are 321. Sodium 140, K is 4.7, BUN 74 , creatinine is 5.1. Total bilirubin is 0.9, AST 202, ALT 134, alkaline phosphatase is 83. Bile asp irate is positive gram-negative hamlet. Chest x-ray was done and that showed improved vascular congesti on. PHYSICAL EXAMINATION: HEENT: Sclerae are anicteric. NECK: Supple. CARDIAC: S1, S2. LUNGS: Clear. No rales or wheeze. ABDOMEN: With bowel sounds. Soft. Her laparoscopic Band-Aids are intact as well as the dressing. Positive CHRISTIANO drain with serosanguineous drain. EXTREMITIES: Lower extremities positive bilateral edema. Right upper arm extremity, shoulder seems softer, still no sensation on her arms, but more states some tingling. NEUROLOGIC: She is easily arousable, a little bit sleepy this morning. ASSESSMENT: This 75-year-old female with history of transient ischemic attack, diabetes mellitus typ e 2, congestive heart failure, history of deep venous thrombosis with common bile ducts stones, came in status post fall and rhabdomyolysis with acute cholecystitis, status post open cholecystectomy wit h necrotic gallbladder. She also has acute kidney injury and right arm paralysis. PLAN: Follow up surgical pathology. Monitor LFTs. She is on DVT prophylaxis, heparin q.12, on IV a ntibiotics, meropenem. GI prophylaxis, Protonix IV. Also, her labs were reviewed. ADDENDUM: Sodium 140, K 4.7. BUN is 74, creatinine is 5.1, total bilirubin 0.9, AST 202, ALT 134, a lkaline phosphatase is 83. This is improved. Total creatine kinase is 2769. The patient was seen a nd case discussed with Dr. Duncan. Sweetie BUNN cc: [id number] TT: 07/04/2016 14:32:51 Confirmation # [id number] Dictation # [id number] tn
[2016-07-04 16:28] LABS: ADD MANUAL DIFF? NO
[2016-07-04 16:31] LABS: BASO # 0.05 K/mm3 (0.0-2.0); BASO % 0.2 % (0.0-3.0); EOS # 0.1 (0.0-0.7); EOS % 0.3 % (1.5-5.0); GRAN # 22.02 (1.4-6.5); GRAN % 91.2 % (50.0-68.0); HEMATOCRIT 25.4 % (36.0-48.0); LYMPH # 0.9 (1.2-3.4); LYMPH % 3.7 % (22.0-35.0); MEAN CELL VOLUME 94.1 fL (80.0-105.0); MEAN CORPUSCULAR HEMOGLOBIN 31.9 pg (25.0-35.0); MEAN CORPUSCULAR HGB CONC 33.9 g/dl (31.0-37.0); MEAN PLATELET VOLUME 9.7 fl (7.0-11.0); MONO # 1.1 (0.1-0.6); MONO % 4.6 % (1.0-6.0); PLATELET COUNT 277 10^3/uL (120.0-450.0); RED CELL DISTRIBUTION WIDTH 15.6 % (11.5-14.5); WHITE BLOOD COUNT 24.2 10^3/ul (4.5-11.0)
[2016-07-04] MEDS ORDERED: Lidocaine 2% Inj (20ml) ONE ×2 (16:57→17:16)
[2016-07-04] MEDS ORDERED: Midazolam 2 MG/2 ML VIAL ONE (17:19)
--- NOTE | 2016-07-04 18:06 | VASCULAR ---
PROCEDURE: Ultrasound and fluoroscopic tunneled right IJ dialysis catheter. CLINICAL HISTORY: Rhabdomyolysis. Acute renal failure. Needs dialysis catheter PHYSICIAN(S): Nathan Cui M.D. TECHNIQUE: The relative risks and indications for the procedure were explained to the patient's family and informed written consent obtained. The patient was placed supine on the arteriography table and the right neck/chest was prepped and draped in the usual sterile fashion. 1% Xylocaine was used to anesthetize the skin and soft tissues at the puncture site. Conscious sedation and monitoring were provided throughout the procedure by a nurse. Under direct ultrasound guidance, the rightinternal jugular vein was punctured with a micropuncture set. A 0.035 Glidewire was advanced into the IVC. Sequential dilatation was performed with subsequent placement of a 28cm Serrano II catheter with its tip in the right atrium. A retrograde tunnel below the right clavicle was performed. The catheter was trimmed and the hub attached. Both ports aspirate and inject easily. The catheter was secured and a dressing applied. The patient tolerated the procedure well. IMPRESSION: 1. Ultrasound and fluoroscopically placed right IJ tunneled dialysis catheter.
--- NOTE | 2016-07-04 18:55 | PN ---
DATE: 07/04/2016 HISTORY OF PRESENT ILLNESS: A 75-year-old female with past medical history of hypertension, diabetes , hypothyroidism, cholelithiasis and previous right lower extremity DVT, admitted with severe rhabdom yolysis, sepsis and acute renal failure for which nephrology is following. The patient this morning denies any shortness of breath or difficulty breathing. She denies being in any pain. PHYSICAL EXAMINATION: VITAL SIGNS: Blood pressure 131/62, heart rate 112, respirations 28, O2 sat 100% on nasal cannula. GENERAL: Mildly tachypneic and mildly labored breathing, able to converse coherently, although with more difficulty than on previous exam. HEENT: Moist mucous membranes, nonicteric sclerae. CHEST: Mild basilar rales. Otherwise, no rhonchi, no wheezes. CARDIOVASCULAR: S1, S2 positive. Mildly tachycardic. No murmurs, no rubs, no gallops. ABDOMEN: Soft. Right surgical incision with dressing overlying it. GENITOURINARY: Briones in place. EXTREMITIES: Moderately edematous legs. PSYCHIATRIC: Normal mood, normal affect. LABORATORY DATA: CBC: WBC 24.2, hemoglobin 8.6, hematocrit 25.4, platelets 277. Chemistry: Sodium 140, potassium 4.7, chloride 107, bicarbonate 17, BUN 74, creatinine 5.1, glucose 98, calcium 7.9, C K 2769, albumin 3.0. ASSESSMENT: 1. Acute renal failure, acute kidney injury on chronic kidney disease stage III. Oliguric renal fail ure with acute tubular necrosis secondary to severe rhabdomyolysis. After urine output had improved, appears to have dropped off today. Also, rate in rise of serum creatinine previously slowing down, n ow increased. Mild increase in anion gap metabolic acidosis in the setting of renal failure. Potass ium level is stable. Chest x-ray showing pulmonary congestion, although the patient's FIO2 requireme nt has been stable. The patient appears more lethargic today and with slightly labored breathing. N o urgent indication to initiate hemodialysis currently. However, I anticipate that hemodialysis will be needed over the next 1-2 days. Therefore, we will have interventional radiology place temporary dialysis catheter and will plan to initiate hemodialysis tomorrow preemptively in order to avoid a si tuation were patient is in severe respiratory distress or has marked electrolyte abnormalities and ne eds to be dialyzed urgently. If patient shows significant clinical improvement overnight, we will ho ld off on initiating hemodialysis. 2. Rhabdomyolysis secondary to right arm injury. CK level continues to trend downward. Corrected yony cium is within normal limits. If hypocalcemia seen, should only replenish if the patient is symptomat ic or EKG changes present, as with concomitant hyperphosphatemia with calcium can with phosphor us and deposit in vascular and soft tissues. 3. Systemic inflammatory response syndrome/sepsis, now status post cholecystectomy with finding of n ecrotic gallbladder. Currently on meropenem 250 mg q. 12 hours, dose decreased in light of renal ernestina lure. 4. Metabolic acidosis, moderate, in the setting of renal failure. Should avoid giving bicarbonate c ontaining fluids as this will worsen hypocalcemia. 5. Anemia. Hemoglobin trending down slightly. Iron deficient. However, should avoid giving IV iro n in the setting of acute infection. Can give p.o. iron. Timmy Ron MD cc: [id number] TT: 07/04/2016 18:55:32 Confirmation # [id number] Dictation # [id number]
[2016-07-04 19:15] LABS: ALB/GLOB RATIO 0.9 (1.1-1.8); CALCIUM 8.3 mg/dL (8.4-10.5); POTASSIUM 4.8 mmol/L (3.6-5.0); TOTAL PROTEIN 6.1 g/dL (5.8-8.3)
--- NOTE | 2016-07-04 21:26 | CP.PCM.PN ---
Subjective - Date & Time of Evaluation Date of Evaluation: 07/04/16 Time of Evaluation: 21:25 - Subjective Subjective: # 20 angiocath was inserted in left hand dorsum. Dx:Poor venous access. Objective - Vital Signs/Intake and Output Vital Signs (last 24 hours): Temp Pulse Resp BP Pulse Ox 9826 F H 114 H 21 160/70 H 95 07/04/16 20:00 07/04/16 19:01 07/04/16 19:01 07/04/16 21:08 07/04/16 19:01 Intake and Output: 07/04/16 07/05/16 18:59 06:59 Intake Total 640 Output Total 230 Balance 410 - Medications Medications: Current Medications Albuterol Sulfate (Albuterol 0.083% Inhal Lorri (2.5 Mg/3 Ml) Ud) 2.5 mg IH [id number] [facility] Last Admin: 07/04/16 19:20 Dose: 2.5 mg Albuterol Sulfate (Albuterol 0.083% Inhal Lorri (2.5 Mg/3 Ml) Ud) 2.5 mg IH Q3 PRN PRN Reason: SOB Ferrous Sulfate (Feosol) 324 mg PO BID [facility] Last Admin: 07/04/16 19:08 Dose: 324 mg Heparin Sodium (Porcine) (Heparin) 5,000 units SC Q12 [facility] PRN Reason: Protocol Last Admin: 07/04/16 10:10 Dose: 5,000 units Hydromorphone HCl (Dilaudid) 1 mg IVP Q4H PRN PRN Reason: Pain, moderate (4-7) Meropenem 250 mg/ Sodium (Chloride) 100 mls @ 100 mls/hr IVPB Q12H [facility] PRN Reason: Protocol Stop: 07/13/16 09:46 Last Admin: 07/04/16 10:15 Dose: Not Given Insulin Human Lispro (Humalog Low) 0 units SC ACHS [facility] PRN Reason: Protocol Last Admin: 07/04/16 18:51 Dose: Not Given Levothyroxine Sodium (Synthroid) 75 mcg PO ACB [facility] Last Admin: 07/04/16 08:18 Dose: Not Given Metoclopramide HCl (Reglan) 10 mg IV ONCE PRN PRN Reason: Nausea/Vomiting Nystatin (Nystop Topical Powder) 0 gm TOP BID [facility] Last Admin: 07/04/16 19:08 Dose: 1 applic Ondansetron HCl (Zofran Inj) 4 mg IVP Q6H PRN PRN Reason: Nausea/Vomiting Last Admin: 06/30/16 12:15 Dose: 4 mg Ondansetron HCl (Zofran Inj) 4 mg IVP ONCE PRN PRN Reason: Nausea/Vomiting Pantoprazole Sodium (Protonix Inj) 40 mg IVP DAILY [facility] Last Admin: 07/04/16 10:10 Dose: 40 mg - Labs Labs: 07/04/16 16:00 07/04/16 16:00 PT 10.4 Seconds (9.9-11.8) 07/02/16 05:30 INR 0.96 (0.93-1.08) 07/02/16 05:30 APTT 39.0 Seconds (23.7-30.8) H 07/02/16 11:00
[2016-07-04] MEDS: HYDROmorphone 1 mg/ml ISec IVP PRN (22:19)
--- NOTE | 2016-07-05 00:50 | CP.PCM.PN ---
Subjective - Date & Time of Evaluation Date of Evaluation: 07/05/16 Time of Evaluation: 07:00 - Subjective Subjective: General Surgery progress note for Dr. Elias Pt s/e at bedside in the ICU. NAEO. Patient denies any pain, nausea, vomiting, fevers, chills. States she has not passed gas or had a BM. States she just wants to go home. Objective - Vital Signs/Intake and Output Vital Signs (last 24 hours): Temp Pulse Resp BP Pulse Ox 98.3 F 111 H 16 94/42 L 94 L 07/05/16 00:00 07/04/16 23:00 07/04/16 23:00 07/04/16 23:00 07/04/16 23:00 Intake and Output: 07/04/16 07/05/16 18:59 06:59 Intake Total 640 Output Total 230 Balance 410 - Medications Medications: Current Medications Albuterol Sulfate (Albuterol 0.083% Inhal Lorri (2.5 Mg/3 Ml) Ud) 2.5 mg IH [id number] [facility] Last Admin: 07/04/16 19:20 Dose: 2.5 mg Albuterol Sulfate (Albuterol 0.083% Inhal Lorri (2.5 Mg/3 Ml) Ud) 2.5 mg IH Q3 PRN PRN Reason: SOB Ferrous Sulfate (Feosol) 324 mg PO BID [facility] Last Admin: 07/04/16 19:08 Dose: 324 mg Heparin Sodium (Porcine) (Heparin) 5,000 units SC Q12 IAIN PRN Reason: Protocol Last Admin: 07/04/16 21:49 Dose: 5,000 units Hydromorphone HCl (Dilaudid) 1 mg IVP Q4H PRN PRN Reason: Pain, moderate (4-7) Last Admin: 07/04/16 22:19 Dose: 1 mg Meropenem 250 mg/ Sodium (Chloride) 100 mls @ 100 mls/hr IVPB Q12H IAIN PRN Reason: Protocol Stop: 07/13/16 09:46 Last Admin: 07/04/16 21:48 Dose: 100 mls/hr Insulin Human Lispro (Humalog Low) 0 units SC ACHS IAIN PRN Reason: Protocol Last Admin: 07/04/16 21:50 Dose: Not Given Levothyroxine Sodium (Synthroid) 75 mcg PO ACB IAIN Last Admin: 07/04/16 08:18 Dose: Not Given Metoclopramide HCl (Reglan) 10 mg IV ONCE PRN PRN Reason: Nausea/Vomiting Nystatin (Nystop Topical Powder) 0 gm TOP BID [facility] Last Admin: 07/04/16 19:08 Dose: 1 applic Ondansetron HCl (Zofran Inj) 4 mg IVP Q6H PRN PRN Reason: Nausea/Vomiting Last Admin: 06/30/16 12:15 Dose: 4 mg Ondansetron HCl (Zofran Inj) 4 mg IVP ONCE PRN PRN Reason: Nausea/Vomiting Pantoprazole Sodium (Protonix Inj) 40 mg IVP DAILY [facility] Last Admin: 07/04/16 10:10 Dose: 40 mg - Labs Labs: 07/04/16 16:00 07/04/16 16:00 PT 10.4 Seconds (9.9-11.8) 07/02/16 05:30 INR 0.96 (0.93-1.08) 07/02/16 05:30 APTT 39.0 Seconds (23.7-30.8) H 07/02/16 11:00 - Constitutional Appears: Non-toxic, No Acute Distress - Head Exam Head Exam: ATRAUMATIC, NORMOCEPHALIC - Eye Exam Eye Exam: Normal appearance. absent: Conjunctival injection, Scleral icterus - ENT Exam ENT Exam: Mucous Membranes Moist, Normal Oropharynx - Respiratory Exam Respiratory Exam: NORMAL BREATHING PATTERN. absent: Accessory Muscle Use, Respiratory Distress - Cardiovascular Exam Cardiovascular Exam: Tachycardia, REGULAR RHYTHM - GI/Abdominal Exam GI & Abdominal Exam: Distended (moderately distended), Soft. absent: Tenderness Additional comments: RUQ surgical dressings intact with moderate sero-sanguinous drainage, no surrounding erythema or drainage - Extremities Exam Extremities Exam: absent: Calf Tenderness, Pedal Edema, Tenderness - Neurological Exam Neurological Exam: Alert, Awake, Oriented x3 - Psychiatric Exam Psychiatric exam: Depressed, Normal Affect - Skin Skin Exam: Dry, Normal Color, Warm Assessment and Plan - Assessment and Plan (Free Text) Assessment: 75F w. cholecystitis, s/p open cholecystectomy POD#2 Hamzah 10cc/12hr serosanguinous No return of bowel function WBC mild improvement @23.8 LFT's improving Plan: -CLD, possible FLD for dinner if tolerates CLD today or passes gas -c/w abx -c/w pain management -will d/w Dr. Curt Lua, PGY1
[2016-07-05] MEDS: Albuterol 0.083% Inhal Sol (2.5 mg/3 mL) UD IH SCH ×4 (02:02→20:08)
[2016-07-05 05:58] LABS: HEMATOCRIT 24.3 % (36.0-48.0); MEAN CELL VOLUME 92.7 fL (80.0-105.0); MEAN CORPUSCULAR HEMOGLOBIN 31.3 pg (25.0-35.0); MEAN CORPUSCULAR HGB CONC 33.7 g/dl (31.0-37.0); MEAN PLATELET VOLUME 9.3 fl (7.0-11.0); PLATELET COUNT 361 10^3/uL (120.0-450.0); RED CELL DISTRIBUTION WIDTH 15.5 % (11.5-14.5); WHITE BLOOD COUNT 23.8 10^3/ul (4.5-11.0)
--- NOTE | 2016-07-05 06:06 | PN ---
DATE: 07/04/2016 ADDENDUM This is an addendum to the GI progress report dictated by Sweetie Reece NP. The patient was seen and evaluated earlier. Attempts were made to reach out to the family at the request of the patient. Unable to reach them; a message left. This patient clinically doing better. The patient is being planned for dialysis. The patient does have tenderness over the surgical site area. I spoke with Dr. Elias before. The pathology report was also reviewed. IMPRESSION: The patient has recently surgery for necrotic gallbladder. IOC was not done. DIMITRY on CKD. Alkaline phosphatase is normal. The present plan is to continue the antibiotics, postop as per surgery. Followup of the LFTs. The patient is scheduled to have a dialysis catheter placement. Thank you very much for allowing us to participate in the care of the patient. Kavon Duncan MD cc: [id number] TT: 07/05/2016 06:05:25 Confirmation # [id number] Dictation # [id number] millie SALGADO
[2016-07-05 06:07] LABS: ALB/GLOB RATIO 0.9 (1.1-1.8); BILIRUBIN,TOTAL 0.9 mg/dL (0.2-1.3); CALCIUM 8.8 mg/dL (8.4-10.5); POTASSIUM 4.9 mmol/L (3.6-5.0)
[2016-07-05 06:22] LABS: ADD MANUAL DIFF? YES
[2016-07-05] MEDS: Insulin Lispro (humaLOG) LOW Coverage SC SCH ×4 (07:58→22:00)
[2016-07-05] MEDS: Levothyroxine 75 MCG TAB PO SCH (07:58)
--- NOTE | 2016-07-05 08:15 | CP.CCUPN ---
CCU Subjective - Physician Review Events Since Last Encounter (Free Text): 07/05/16 08:16 HR 90 -110 overnight BP 95-100 / 40s POx 92-100 U/O 150 over 12 hours CHRISTIANO 10cc serosanguonus overnight No acute complaint. Denies headache, CP, SOB, N/V. CCU Objective - Vital Signs / Intake & Output Vital Signs (Last 4 hours): Vital Signs Temp Pulse Resp BP Pulse Ox 07/05/16 07:30 98.1 F 07/05/16 07:15 112 H 18 100/53 L 94 L 07/05/16 07:00 113 H 18 88/47 L 96 07/05/16 06:00 110 H 18 103/48 L 91 L 07/05/16 05:00 98.3 F 109 H 21 102/46 L 94 L Intake and Output (Last 8hrs): Intake & Output 07/04/16 07/05/16 07/05/16 22:59 06:59 14:59 Intake Total 640 200 Output Total 230 160 Balance 410 40 Weight 273 lb Intake: IV 160 100 Left Wrist 160 Right Hand 100 Oral 480 100 Output: Drainage 30 10 Right Abdomen 30 10 Urine 200 150 Urethral (Briones) 200 150 Other: Voiding Method Indwelling Catheter # Bowel Movements 0 0 - Physical Exam Head: Positive for: Ecchymosis (Along lower right face) Pupils: Positive for: PERRL Extroacular Muscles: Positive for: EOMI Conjunctiva: Positive for: Normal. Negative for: Icteric Respiratory/Chest: Positive for: Clear to Auscultation, Decreased Breath Sounds , Rales (lung bases). Negative for: Rhonchi Cardiovascular: Positive for: Regular Rate and Rhythm, Normal S1, S2. Negative for: Murmurs Abdomen: Positive for: Normal Bowel Sounds. Negative for: Tenderness, Distention, Guarding Upper Extremity: Positive for: NORMAL PULSES, Other (Unable to move right arm. No sensation in right arm. Ecchymoses on right shoulder. Exam unchanged from previous day.). Negative for: Tenderness Lower Extremity: Positive for: Normal Inspection, Edema (trace). Negative for: CALF TENDERNESS Neurological: Positive for: Speech Normal, Other (No sensation in right upper extremity to light touch or deep stimulation.). Negative for: Motor Func Grossly Intact, Normal Sensory Function Skin: Positive for: Warm, Dry, Other (Ecchymoses on right upper extremity) Psychiatric: Positive for: Alert, Oriented x 3, Normal Insight, Normal Concentration - Medications Active Medications: Active Medications Generic Name Dose Route Start Last Admin Trade Name Freq PRN Reason Stop Dose Admin Albuterol Sulfate 2.5 mg 07/04/16 02:00 07/05/16 07:48 Albuterol 0.083% Inhal Lorri (2.5 Mg/3 Ml) Ud IH 2.5 mg [id number] IAIN Administration Albuterol Sulfate 2.5 mg 07/03/16 21:13 Albuterol 0.083% Inhal Lorri (2.5 Mg/3 Ml) Ud IH Q3 PRN SOB Ferrous Sulfate 324 mg 07/04/16 18:30 07/04/16 19:08 Feosol PO 324 mg BID IAIN Administration Heparin Sodium (Porcine) 5,000 units 07/04/16 10:00 07/04/16 21:49 Heparin SC 5,000 units Q12 IAIN Administration Protocol Hydromorphone HCl 1 mg 07/03/16 10:50 07/04/16 22:19 Dilaudid IVP 1 mg Q4H PRN Administration Pain, moderate (4-7) Meropenem 250 mg/ Sodium 100 mls @ 100 mls/hr 07/04/16 09:45 07/04/16 21:48 Chloride IVPB 07/13/16 09:46 100 mls/hr Q12H IAIN Administration Protocol Insulin Human Lispro 0 units 06/30/16 11:30 07/05/16 07:58 Humalog Low SC 1 units ACHS IAIN Administration Protocol Levothyroxine Sodium 75 mcg 07/01/16 07:30 07/05/16 07:58 Synthroid PO 75 mcg ACB IAIN Administration Metoclopramide HCl 10 mg 07/03/16 09:46 Reglan IV ONCE PRN Nausea/Vomiting Nystatin 0 gm 06/30/16 05:00 07/04/16 19:08 Nystop Topical Powder TOP 1 applic BID IAIN Administration Ondansetron HCl 4 mg 06/29/16 22:58 06/30/16 12:15 Zofran Inj IVP 4 mg Q6H PRN Administration Nausea/Vomiting Ondansetron HCl 4 mg 07/03/16 09:46 Zofran Inj IVP ONCE PRN Nausea/Vomiting Pantoprazole Sodium 40 mg 06/30/16 10:00 07/04/16 10:10 Protonix Inj IVP 40 mg DAILY IAIN Administration - Patient Studies Lab Studies: Microbiology Studies 07/03/16 09:48 Gram Stain - Final Bile Body Fluid Culture - Preliminary Gram Negative Rashel Gram Negative Rashel#2 Gram Negative Rashel#3 07/03/16 09:30 Body Fluid Culture - Preliminary Bile Gram Negative Rashel Gram Negative Rashel#2 Gram Negative Rashel#3 Lab Studies 07/05/16 07/05/16 07/04/16 Range/Units 05:30 05:30 21:46 WBC 23.8 H (4.5-11.0) 10^3/ul RBC 2.62 L (3.5-6.1) 10^6/uL Hgb 8.2 L (12.0-16.0) gm/dL Hct 24.3 L (36.0-48.0) % MCV 92.7 (80.0-105.0) fL MCH 31.3 (25.0-35.0) pg MCHC 33.7 (31.0-37.0) g/dl RDW 15.5 H (11.5-14.5) % Plt Count 361 (120.0-450.0) 10^3/uL MPV 9.3 (7.0-11.0) fl Gran % (50.0-68.0) % Lymph % (Auto) (22.0-35.0) % [place] % (Auto) (1.0-6.0) % Eos % (Auto) (1.5-5.0) % Baso % (Auto) (0.0-3.0) % Gran # (1.4-6.5) Lymph # (1.2-3.4) [place] # (0.1-0.6) Eos # (0.0-0.7) Baso # (0.0-2.0) K/mm3 Neutrophils % (Manual) (50.0-70.0) % Lymphocytes % (Manual) (22.0-35.0) % Monocytes % (Manual) (1.0-6.0) % Toxic Granulation Platelet Evaluation (NORMAL) Large Platelets Polychromasia Hypochromasia Anisocytosis (manual) Ovalocytes Haptoglobin (43-212) mg/dL Sodium 141 (132-148) mmol/L Potassium 4.9 (3.6-5.0) mmol/L Chloride 106 (98-107) mmol/L Carbon Dioxide 20 L (21-33) mmol/L Anion Gap 20 (10-20) BUN 85 H (7-21) mg/dL Creatinine 5.2 H (0.5-1.4) mg/dL Est GFR ( Amer) 10 Est GFR (Non-Af Amer) 8 POC Glucose (mg/dL) 202 H (65-110) mg/dL Random Glucose 147 H (70-110) mg/dL Calcium 8.8 (8.4-10.5) mg/dL Total Bilirubin 0.9 (0.2-1.3) mg/dL AST 146 H (15-39) U/L ALT 118 H (7-56) U/L Alkaline Phosphatase 95 (38-133) U/L Total Creatine Kinase 1308 H (35-230) U/L CK-MB (CK-2) 3.9 H (0.0-3.6) ng/mL CK-MB (CK-2) % Cancelled Total Protein 6.0 (5.8-8.3) g/dL Albumin 2.9 L (3.0-4.8) g/dL Globulin 3.1 gm/dL Albumin/Globulin Ratio 0.9 L (1.1-1.8) 07/04/16 07/04/16 07/04/16 Range/Units 18:30 16:00 16:00 WBC 24.2 H (4.5-11.0) 10^3/ul RBC 2.70 L (3.5-6.1) 10^6/uL Hgb 8.6 L (12.0-16.0) gm/dL Hct 25.4 L (36.0-48.0) % MCV 94.1 (80.0-105.0) fL MCH 31.9 (25.0-35.0) pg MCHC 33.9 (31.0-37.0) g/dl RDW 15.6 H (11.5-14.5) % Plt Count 277 (120.0-450.0) 10^3/uL MPV 9.7 (7.0-11.0) fl Gran % 91.2 H (50.0-68.0) % Lymph % (Auto) 3.7 L (22.0-35.0) % [place] % (Auto) 4.6 (1.0-6.0) % Eos % (Auto) 0.3 L (1.5-5.0) % Baso % (Auto) 0.2 (0.0-3.0) % Gran # 22.02 H (1.4-6.5) Lymph # 0.9 L (1.2-3.4) [place] # 1.1 H (0.1-0.6) Eos # 0.1 (0.0-0.7) Baso # 0.05 (0.0-2.0) K/mm3 Neutrophils % (Manual) (50.0-70.0) % Lymphocytes % (Manual) (22.0-35.0) % Monocytes % (Manual) (1.0-6.0) % Toxic Granulation Platelet Evaluation (NORMAL) Large Platelets Polychromasia Hypochromasia Anisocytosis (manual) Ovalocytes Haptoglobin (43-212) mg/dL Sodium 139 (132-148) mmol/L Potassium 4.8 (3.6-5.0) mmol/L Chloride 106 (98-107) mmol/L Carbon Dioxide 17 L (21-33) mmol/L Anion Gap 21 H (10-20) BUN 82 H (7-21) mg/dL Creatinine 5.0 H (0.5-1.4) mg/dL Est GFR ( Amer) 10 Est GFR (Non-Af Amer) 8 POC Glucose (mg/dL) 127 H (65-110) mg/dL Random Glucose 149 H (70-110) mg/dL Calcium 8.3 L (8.4-10.5) mg/dL Total Bilirubin 1.0 (0.2-1.3) mg/dL AST 173 H (15-39) U/L ALT 120 H (7-56) U/L Alkaline Phosphatase 92 (38-133) U/L Total Creatine Kinase 2157 H (35-230) U/L CK-MB (CK-2) 3.8 H (0.0-3.6) ng/mL CK-MB (CK-2) % Cancelled Total Protein 6.1 (5.8-8.3) g/dL Albumin 2.9 L (3.0-4.8) g/dL Globulin 3.2 gm/dL Albumin/Globulin Ratio 0.9 L (1.1-1.8) 07/04/16 07/04/16 07/04/16 Range/Units 11:03 07:39 05:30 WBC (4.5-11.0) 10^3/ul RBC (3.5-6.1) 10^6/uL Hgb (12.0-16.0) gm/dL Hct (36.0-48.0) % MCV (80.0-105.0) fL MCH (25.0-35.0) pg MCHC (31.0-37.0) g/dl RDW (11.5-14.5) % Plt Count (120.0-450.0) 10^3/uL MPV (7.0-11.0) fl Gran % (50.0-68.0) % Lymph % (Auto) (22.0-35.0) % [place] % (Auto) (1.0-6.0) % Eos % (Auto) (1.5-5.0) % Baso % (Auto) (0.0-3.0) % Gran # (1.4-6.5) Lymph # (1.2-3.4) [place] # (0.1-0.6) Eos # (0.0-0.7) Baso # (0.0-2.0) K/mm3 Neutrophils % (Manual) (50.0-70.0) % Lymphocytes % (Manual) (22.0-35.0) % Monocytes % (Manual) (1.0-6.0) % Toxic Granulation Platelet Evaluation (NORMAL) Large Platelets Polychromasia Hypochromasia Anisocytosis (manual) Ovalocytes Haptoglobin (43-212) mg/dL Sodium (132-148) mmol/L Potassium (3.6-5.0) mmol/L Chloride (98-107) mmol/L Carbon Dioxide (21-33) mmol/L Anion Gap (10-20) BUN (7-21) mg/dL Creatinine (0.5-1.4) mg/dL Est GFR ( Amer) Est GFR (Non-Af Amer) POC Glucose (mg/dL) 133 H 108 (65-110) mg/dL Random Glucose (70-110) mg/dL Calcium (8.4-10.5) mg/dL Total Bilirubin (0.2-1.3) mg/dL AST (15-39) U/L ALT (7-56) U/L Alkaline Phosphatase (38-133) U/L Total Creatine Kinase (35-230) U/L CK-MB (CK-2) 4.3 H (0.0-3.6) ng/mL CK-MB (CK-2) % Cancelled Total Protein (5.8-8.3) g/dL Albumin (3.0-4.8) g/dL Globulin gm/dL Albumin/Globulin Ratio (1.1-1.8) 07/04/16 07/03/16 Range/Units 05:30 14:00 WBC (4.5-11.0) 10^3/ul RBC (3.5-6.1) 10^6/uL Hgb (12.0-16.0) gm/dL Hct (36.0-48.0) % MCV (80.0-105.0) fL MCH (25.0-35.0) pg MCHC (31.0-37.0) g/dl RDW (11.5-14.5) % Plt Count (120.0-450.0) 10^3/uL MPV (7.0-11.0) fl Gran % (50.0-68.0) % Lymph % (Auto) (22.0-35.0) % [place] % (Auto) (1.0-6.0) % Eos % (Auto) (1.5-5.0) % Baso % (Auto) (0.0-3.0) % Gran # (1.4-6.5) Lymph # (1.2-3.4) [place] # (0.1-0.6) Eos # (0.0-0.7) Baso # (0.0-2.0) K/mm3 Neutrophils % (Manual) 92 H (50.0-70.0) % Lymphocytes % (Manual) 4 L (22.0-35.0) % Monocytes % (Manual) 4 (1.0-6.0) % Toxic Granulation Slight Platelet Evaluation Normal (NORMAL) Large Platelets Present Polychromasia Slight Hypochromasia 1+ Anisocytosis (manual) 1+ Ovalocytes Slight Haptoglobin 474 H (43-212) mg/dL Sodium (132-148) mmol/L Potassium (3.6-5.0) mmol/L Chloride (98-107) mmol/L Carbon Dioxide (21-33) mmol/L Anion Gap (10-20) BUN (7-21) mg/dL Creatinine (0.5-1.4) mg/dL Est GFR ( Amer) Est GFR (Non-Af Amer) POC Glucose (mg/dL) (65-110) mg/dL Random Glucose (70-110) mg/dL Calcium (8.4-10.5) mg/dL Total Bilirubin (0.2-1.3) mg/dL AST (15-39) U/L ALT (7-56) U/L Alkaline Phosphatase (38-133) U/L Total Creatine Kinase (35-230) U/L CK-MB (CK-2) (0.0-3.6) ng/mL CK-MB (CK-2) % Total Protein (5.8-8.3) g/dL Albumin (3.0-4.8) g/dL Globulin gm/dL Albumin/Globulin Ratio (1.1-1.8) Laboratory Results - last 24 hr 07/03/16 07/04/16 07/04/16 14:00 05:30 05:30 WBC RBC Hgb Hct MCV MCH MCHC RDW Plt Count MPV Gran % Lymph % (Auto) [place] % (Auto) Eos % (Auto) Baso % (Auto) Gran # Lymph # [place] # Eos # Baso # Neutrophils % (Manual) 92 H Lymphocytes % (Manual) 4 L Monocytes % (Manual) 4 Toxic Granulation Slight Platelet Evaluation Normal Large Platelets Present Polychromasia Slight Hypochromasia 1+ Anisocytosis (manual) 1+ Ovalocytes Slight Haptoglobin 474 H Sodium Potassium Chloride Carbon Dioxide Anion Gap BUN Creatinine Est GFR ( Amer) Est GFR (Non-Af Amer) POC Glucose (mg/dL) Random Glucose Calcium Total Bilirubin AST ALT Alkaline Phosphatase Total Creatine Kinase CK-MB (CK-2) 4.3 H CK-MB (CK-2) % Cancelled Total Protein Albumin Globulin Albumin/Globulin Ratio 07/04/16 07/04/16 07/04/16 07:39 11:03 16:00 WBC 24.2 H RBC 2.70 L Hgb 8.6 L Hct 25.4 L MCV 94.1 MCH 31.9 MCHC 33.9 RDW 15.6 H Plt Count 277 MPV 9.7 Gran % 91.2 H Lymph % (Auto) 3.7 L [place] % (Auto) 4.6 Eos % (Auto) 0.3 L Baso % (Auto) 0.2 Gran # 22.02 H Lymph # 0.9 L [place] # 1.1 H Eos # 0.1 Baso # 0.05 Neutrophils % (Manual) Lymphocytes % (Manual) Monocytes % (Manual) Toxic Granulation Platelet Evaluation Large Platelets Polychromasia Hypochromasia Anisocytosis (manual) Ovalocytes Haptoglobin Sodium Potassium Chloride Carbon Dioxide Anion Gap BUN Creatinine Est GFR ( Amer) Est GFR (Non-Af Amer) POC Glucose (mg/dL) 108 133 H Random Glucose Calcium Total Bilirubin AST ALT Alkaline Phosphatase Total Creatine Kinase CK-MB (CK-2) CK-MB (CK-2) % Total Protein Albumin Globulin Albumin/Globulin Ratio 07/04/16 07/04/16 07/04/16 16:00 18:30 21:46 WBC RBC Hgb Hct MCV MCH MCHC RDW Plt Count MPV Gran % Lymph % (Auto) [place] % (Auto) Eos % (Auto) Baso % (Auto) Gran # Lymph # [place] # Eos # Baso # Neutrophils % (Manual) Lymphocytes % (Manual) Monocytes % (Manual) Toxic Granulation Platelet Evaluation Large Platelets Polychromasia Hypochromasia Anisocytosis (manual) Ovalocytes Haptoglobin Sodium 139 Potassium 4.8 Chloride 106 Carbon Dioxide 17 L Anion Gap 21 H BUN 82 H Creatinine 5.0 H Est GFR ( Amer) 10 Est GFR (Non-Af Amer) 8 POC Glucose (mg/dL) 127 H 202 H Random Glucose 149 H Calcium 8.3 L Total Bilirubin 1.0 AST 173 H ALT 120 H Alkaline Phosphatase 92 Total Creatine Kinase 2157 H CK-MB (CK-2) 3.8 H CK-MB (CK-2) % Cancelled Total Protein 6.1 Albumin 2.9 L Globulin 3.2 Albumin/Globulin Ratio 0.9 L 07/05/16 07/05/16 05:30 05:30 WBC 23.8 H RBC 2.62 L Hgb 8.2 L Hct 24.3 L MCV 92.7 MCH 31.3 MCHC 33.7 RDW 15.5 H Plt Count 361 MPV 9.3 Gran % Lymph % (Auto) [place] % (Auto) Eos % (Auto) Baso % (Auto) Gran # Lymph # [place] # Eos # Baso # Neutrophils % (Manual) Lymphocytes % (Manual) Monocytes % (Manual) Toxic Granulation Platelet Evaluation Large Platelets Polychromasia Hypochromasia Anisocytosis (manual) Ovalocytes Haptoglobin Sodium 141 Potassium 4.9 Chloride 106 Carbon Dioxide 20 L Anion Gap 20 BUN 85 H Creatinine 5.2 H Est GFR ( Amer) 10 Est GFR (Non-Af Amer) 8 POC Glucose (mg/dL) Random Glucose 147 H Calcium 8.8 Total Bilirubin 0.9 AST 146 H ALT 118 H Alkaline Phosphatase 95 Total Creatine Kinase 1308 H CK-MB (CK-2) 3.9 H CK-MB (CK-2) % Cancelled Total Protein 6.0 Albumin 2.9 L Globulin 3.1 Albumin/Globulin Ratio 0.9 L Fingerstick Blood Sugar Results: 180 Critical Care Progress Note - Nutrition Nutrition: Nutrition Category Date Time Status Liquid Diet [DIET] Diets 07/04/16 Lunch Ordered Assessment/Plan - Assessment and Plan (Free Text) Plan: 75 y/o F with PMH of CHF, DM, TIA, and hypothyroidism presents with severe sepsis s/p cholecystectomy secondary to acute cholecystitis in the setting of rhabdomyolysis complicated by acute kidney injury from ATN and transaminitis along with right arm paralysis due to a fall. WBC maintained at 24. creatinine trends up to 5.2, oliguric. Transaminitis improving, but elevated due to rhabdomyolysis. Right arm paralysis remains unchanged. Day #3 Open GB removal. Neuro: AAOx3 Right arm paralysis unchanged Supportive therapy for right arm, no surgical intervention at this time Dilaudid 1q4 prn Cardio: Hemodynamically stable Goal MAP >65 Pulm: Maintain O2 sat >90% NC @ 3L Albuterol Q6 standing, Q3 PRN Monitor for respiratory distress Post Extubation following surgery Poor lung volumes post Abdominal Surgery . ICS and Chest PT needed. High risk for respiratory failure GI: Will advance diet to liquids, as per surgery. LFT's improving GI following, Dr. Duncan. Endo: Maintain euglycemia, target glucose between 140-180 ISS-low Synthroid 75mcg acb Nephro: DIMITRY on CKD secondary to rhabdomyolysis and ATN. Creatinine worsening. CK improving <4000; Oliguric, urine output 55 cc overnight Increased Fluid overload; No signs of Uremia or worsening Acidosis. On Lasix and Albumin per PCP to help with urine output Dr. Ron consulted, No dialysis indicated at this time. Heme/ID: Feosol 324 BID Afebrile, leukocytosis hovers at 24 Merrem. renal dosing Nystatin TOP Bile (+) Gram negative rashel Blood, urine, cultures and C. diff negative (06/29) Maintain normothermia PPX: Protonix, SCDs DVT P Heparin sq TID Disposition: Goal - OOB today May need MRI and Surgical SUb specialty reccs. Or transfer? S/R/D/w Dr. Reddy - Date & Time Date: 07/05/16 Time: 08:19
[2016-07-05 08:39] LABS: BAND 2 % (0-2); EOSINOPHIL 1 % (0.0-3.0); HYPOCHROMIA 2+; NEUTROPHIL 85 % (50.0-70.0); PLATELET ESTIMATE NORMAL (NORMAL); POLYCHROMASIA SLIGHT
[2016-07-05 08:40] LABS: ANISOCYTOSIS 1+; OVALOCYTES SLIGHT; POIKILOCYTOSIS SLIGHT
--- NOTE | 2016-07-05 08:48 | PN ---
DATE: 07/05/2016(630am--720am) SUBJECTIVE: The patient appears comfortable this morning. She is not short of breath at rest. OBJECTIVE: VITAL SIGNS: Temperature is 98.3, pulse 96, respirations 18, blood pressure 102 /46. Oxygen saturation on nasal cannula is 95%. HEENT: Normocephalic. Positive ecchymosis--right facial area. No JVD. CARDIOVASCULAR: Systolic ejection murmur at the lower left sternal border. No S3 gallop. LUNGS: Decreased breath sounds at the bases. Minimal rhonchi. No wheezing. EXTREMITIES: Positive for edema. No cyanosis. No clubbing. Calves are nontender to palpation. GASTROINTESTINAL: Abdomen is soft. It is less distended and less tender to palpation. Bowel sounds are still decreased. Abdomen is postoperative. SKIN: Positive cellulitic changes on the legs (anterior aspects). No rashes. NEUROLOGIC: Limited at the present time. PERTINENT LABORATORY DATA: Chest x-ray was done this morning and reviewed. It is a poor, underpenetrated portable film. It appears to show minimal atelectatic changes at the bases. IMPRESSION: 1. Acute rhabdomyolysis. Status post fall. 2. Acute renal failure. 3. Sepsis syndrome. 4. Acute cholecystitis. Status post cholecystectomy. 5. Anemia. 6. Mild bronchospasm. PLAN: The patient appears comfortable this morning. She is not short of breath at rest. She states she is feeling much better overall. I did discuss the case with the night nurse at length. The night nurse stated that the patient did have a good night. However, the night nurse also stated that the patient is for probable hemodialysis today. Input by renal is noted. I did review the x-ray as above. It is a poor portable film, but appears to show minimal atelectatic changes at the bases. I will continue with the current nebulizer treatments and try to continue to stress the importance of spirometry to the patient. I will also add chest percussion therapy. I would continue with the antibiotic coverage as per infectious disease. Repeat a.m. labs are pending. I would continue with the surgical and GI evaluations. Inputs are noted. Clinical status of the patient remains very guarded at this point in time. I will discuss the above with the entire team in the next few moments. Also, I will discuss the above with the attending physician this morning. Lionel Sheehan MD cc: [id number] TT: 07/05/2016 08:47:26 Confirmation # [id number] Dictation # [id number] DAMIAN
--- NOTE | 2016-07-05 09:15 | CP.PCM.PN ---
<Luis Conde - Last Filed: 07/05/16 10:12> Subjective - Date & Time of Evaluation Date of Evaluation: 07/05/16 Time of Evaluation: 09:12 - Subjective Subjective: Medicine progress note - Luis Conde PGY 1 Patient seen and examined at bedside this morning. No acute overnight events or new complaints reported by patient or nursing staff. Patient had a dialysis catheter placed by IR yesterday in anticipated of potential need for dialysis. Nephrology to evaluate if patient needs dialysis today or can hold off for the present time. Right arm unchanged in sensation/motor function today. Urine output remains oliguric. Discussed current workup/plan with patient. We will continue to monitor this complicated patient closely. Objective - Vital Signs/Intake and Output Vital Signs (last 24 hours): Temp Pulse Resp BP Pulse Ox 98.1 F 113 H 18 104/48 L 95 07/05/16 07:30 07/05/16 08:00 07/05/16 08:00 07/05/16 08:00 07/05/16 08:00 Intake and Output: 07/05/16 07/05/16 06:59 18:59 Intake Total 200 Output Total 160 Balance 40 - Medications Medications: Current Medications Albuterol Sulfate (Albuterol 0.083% Inhal Lorri (2.5 Mg/3 Ml) Ud) 2.5 mg IH [id number] [facility] Last Admin: 07/05/16 07:48 Dose: 2.5 mg Albuterol Sulfate (Albuterol 0.083% Inhal Lorri (2.5 Mg/3 Ml) Ud) 2.5 mg IH Q3 PRN PRN Reason: SOB Ferrous Sulfate (Feosol) 324 mg PO BID [facility] Last Admin: 07/04/16 19:08 Dose: 324 mg Heparin Sodium (Porcine) (Heparin) 5,000 units SC Q12 [facility] PRN Reason: Protocol Last Admin: 07/04/16 21:49 Dose: 5,000 units Hydromorphone HCl (Dilaudid) 1 mg IVP Q4H PRN PRN Reason: Pain, moderate (4-7) Last Admin: 07/04/16 22:19 Dose: 1 mg Meropenem 250 mg/ Sodium (Chloride) 100 mls @ 100 mls/hr IVPB Q12H [facility] PRN Reason: Protocol Stop: 07/13/16 09:46 Last Admin: 07/04/16 21:48 Dose: 100 mls/hr Insulin Human Lispro (Humalog Low) 0 units SC ACHS [facility] PRN Reason: Protocol Last Admin: 07/05/16 07:58 Dose: 1 units Levothyroxine Sodium (Synthroid) 75 mcg PO ACB [facility] Last Admin: 07/05/16 07:58 Dose: 75 mcg Metoclopramide HCl (Reglan) 10 mg IV ONCE PRN PRN Reason: Nausea/Vomiting Nystatin (Nystop Topical Powder) 0 gm TOP BID [facility] Last Admin: 07/04/16 19:08 Dose: 1 applic Ondansetron HCl (Zofran Inj) 4 mg IVP Q6H PRN PRN Reason: Nausea/Vomiting Last Admin: 06/30/16 12:15 Dose: 4 mg Ondansetron HCl (Zofran Inj) 4 mg IVP ONCE PRN PRN Reason: Nausea/Vomiting Pantoprazole Sodium (Protonix Inj) 40 mg IVP DAILY [facility] Last Admin: 07/04/16 10:10 Dose: 40 mg - Labs Labs: 07/05/16 05:30 07/05/16 05:30 PT 10.4 Seconds (9.9-11.8) 07/02/16 05:30 INR 0.96 (0.93-1.08) 07/02/16 05:30 APTT 39.0 Seconds (23.7-30.8) H 07/02/16 11:00 - Constitutional Appears: Non-toxic, No Acute Distress - Head Exam Head Exam: ATRAUMATIC, NORMAL INSPECTION, NORMOCEPHALIC - Eye Exam Eye Exam: EOMI, PERRL - ENT Exam ENT Exam: Mucous Membranes Moist - Neck Exam Neck Exam: Normal Inspection - Respiratory Exam Respiratory Exam: Clear to Ausculation Bilateral. absent: Rales, Rhonchi, Wheezes - Cardiovascular Exam Cardiovascular Exam: Tachycardia, +S1, +S2. absent: Diastolic murmur, Gallop, Rubs, Murmur - GI/Abdominal Exam GI & Abdominal Exam: Soft, Tenderness. absent: Firm, Guarding, Rigid, Rebound - Extremities Exam Extremities Exam: Pedal Edema. absent: Tenderness Additional comments: RUE: no sensation; motor function 0/5; radial pulse 1/4; unchanged from prior exams LUE: sensation intact; motor function 5/5; radial pulse 2/4 bilateral lower extremities: 1+ edema; motor function 5/5; sensation intact - Neurological Exam Neurological Exam: Alert, Awake, Oriented x3 Assessment and Plan - Assessment and Plan (Free Text) Plan: 75yo Female with history of CHF, DM2, TIA, hypothyroidism, chronic LE edema, history of DVT and CBD stones admitted to the ICU for rhabdomyolysis, acute Kidney injury, right arm paralysis and acute cholecystitis 1. Rhabdomyolysis/DIMITRY on CKD/Acute tubular necrosis -Patient received 4 liters of fluid in the ED and was aggressively hydrated with NS @ 200cc/hr on presentation -Patient was subsequently given IV albumin 25gm q12h and IV lasix ~1hr post albumin -Urine output over the past 24hours ~390cc; remains oliguric -Patient remains oliguric and her renal function has not shown signs of improvement. Yesterday, the need for potential dialysis was discussed with nephrology. She had a temporary dialysis catheter placed by IR yesterday in anticipation of her need for dialysis. Nephrology to evaluate and determine when to start dialysis. -Monitor I's and O's -Daily weight -IR consulted - Dr. Cui -Nephrology consulted - Dr. Ron 2. Right upper extremity paralysis -CT RUE reviewed; Did not reveal any mass or hematoma involving the brachial plexus, however soft tissue density along plexus possible -RUE sensation/motor function without improvement since admission -RUE venous duplex negative for DVT -No surgical intervention was recommended 3. Acute cholecystitis/CBD dilatation -HIDA scan reviewed; consistent with acute cholecystitis -Abdominal US reviewed; CBD measures 8.6mm, cholelithiasis, gallbladder lesion -CT abd/pelvis reviewed -MRCP reviewed -Patient is s/p cholecystectomy; POD # 2; was originally intubated however extubated successfully in the ICU; will continue to monitor her clinical status post surgery -Continue meropenem per ID recommendations -ID consulted - Dr. Banks -Surgery consulted - Dr. Elias -GI consulted - Dr. Duncan 4. s/p fall -Cervical, maxillofacial, shoulder and hip/pelvis x-rays negative -CT Head negative for acute intracranial pathology 5. DM type 2 -Humalog low dose ISS -Patient currently NPO -Fingersticks ACHS 6. GI/DVT Prophylaxis -Protonix/SCD's Patient seen, reviewed and case discussed with attending, Dr. Beltran <Roosevelt Beltran - Last Filed: 07/11/16 09:14> Objective - Vital Signs/Intake and Output Vital Signs (last 24 hours): Temp Pulse Resp BP Pulse Ox 97.9 F 81 22 153/57 H 93 L 07/11/16 07:30 07/11/16 07:30 07/11/16 07:30 07/11/16 07:30 07/11/16 07:30 Intake and Output: 07/11/16 07/11/16 06:59 18:59 Intake Total 720 Output Total 700 Balance 20 - Medications Medications: Current Medications Acetylcysteine (Acetylcysteine 20%) 3 ml IH BID [facility] Last Admin: 07/11/16 07:20 Dose: 3 ml Albuterol Sulfate (Albuterol 0.083% Inhal Lorri (2.5 Mg/3 Ml) Ud) 2.5 mg IH [id number] [facility] Last Admin: 07/11/16 07:20 Dose: 2.5 mg Albuterol Sulfate (Albuterol 0.083% Inhal Lorri (2.5 Mg/3 Ml) Ud) 2.5 mg IH Q3 PRN PRN Reason: SOB Last Admin: 07/11/16 05:01 Dose: 2.5 mg Benzocaine/Menthol (Cepacol Sore Throat) 1 adin MT Q2H PRN PRN Reason: Sore Throat Docusate Sodium (Colace) 100 mg PO BID [facility] Last Admin: 07/10/16 17:16 Dose: 100 mg Ferrous Sulfate (Feosol) 324 mg PO BID [facility] Last Admin: 07/10/16 17:17 Dose: 324 mg Guaifenesin/Dextromethorphan (Robitussin Dm) 5 ml PO Q4H PRN PRN Reason: Cough Last Admin: 07/10/16 02:53 Dose: 5 ml Heparin Sodium (Porcine) (Heparin) 5,000 units SC Q12 [facility] PRN Reason: Protocol Last Admin: 07/10/16 21:34 Dose: 5,000 units Meropenem 250 mg/ Sodium (Chloride) 100 mls @ 100 mls/hr IVPB Q12H [facility] PRN Reason: Protocol Stop: 07/13/16 09:46 Last Admin: 07/10/16 21:34 Dose: 100 mls/hr Sodium Chloride (Sodium Chloride 0.9%) 1,000 mls @ 80 mls/hr IV .[id number] [facility] Last Admin: 07/11/16 08:46 Dose: Not Given Insulin Human Lispro (Humalog Low) 0 units SC ACHS [facility] PRN Reason: Protocol Last Admin: 07/11/16 08:42 Dose: Not Given Levothyroxine Sodium (Synthroid) 75 mcg PO 0630 [facility] Last Admin: 07/11/16 06:18 Dose: 75 mcg Midodrine (Proamatine) 10 mg PO Q8H [facility] Last Admin: 07/11/16 08:45 Dose: Not Given Nystatin (Nystop Topical Powder) 0 gm TOP BID [facility] Last Admin: 07/10/16 17:19 Dose: 1 applic Nystatin/Triamcinolone Acetonide (Nystatin/Triamcinolone Cream) 0 ea TOP BID [facility] Last Admin: 07/10/16 17:19 Dose: 1 applic Ondansetron HCl (Zofran Inj) 4 mg IVP Q6H PRN PRN Reason: Nausea/Vomiting Last Admin: 06/30/16 12:15 Dose: 4 mg Pantoprazole Sodium (Protonix Inj) 40 mg IVP DAILY [facility] Last Admin: 07/10/16 09:20 Dose: 40 mg - Labs Labs: 07/10/16 06:00 07/10/16 06:00 PT 10.4 Seconds (9.9-11.8) 07/02/16 05:30 INR 0.96 (0.93-1.08) 07/02/16 05:30 APTT 39.0 Seconds (23.7-30.8) H 07/02/16 11:00 Attending/Attestation - Attestation I have personally seen and examined this patient.: Yes I have fully participated in the care of the patient.: Yes I have reviewed all pertinent clinical information, including history, physical exam and plan: Yes Notes (Text): 07/11/16 09:14 Medical record note made by the resident after discussion with my direction and input after the patient was personally seen and examined by me. I have reviewed the chart and agree that the record accurately reflects by personal performance of the history, physical exam, data review, and medical decision-making, in the course for the patient. I have also personally directed the plan of care.
--- NOTE | 2016-07-05 09:47 | PN ---
DATE: 07/05/2016 SUBJECTIVE: The patient is awake and alert and responds to questions appropriately. She has O2 via nasal cannula and saturations are good. The patient does have occasional cough and congestion. She is post-surgery for cholecystectomy and does have some abdominal discomfort. No nausea or vomiting. No diarrhea and hemodynamically she is stable. PHYSICAL EXAMINATION: VITAL SIGNS: Her temperature is 98.1, her pulse is 113, respirations are 18, and BP is 104/48. SKIN: Warm and dry. HEENT: Atraumatic, normocephalic. There is some ecchymosis or hematoma on the right side of her fac e, lateral to her mouth. NECK: Supple. No JVD, no thyroid enlargement, no lymph nodes. HEART: Has regular rate and rhythm, normal S1, S2, but tachycardic. LUNGS: Reveal decreased breath sounds at the bases, no significant rales or rhonchi. ABDOMEN: Soft. Decreased bowel sounds. Tender to palpation postsurgery. GENITALIA AND RECTAL: Deferred. MUSCULOSKELETAL: No joint deformities. EXTREMITIES: Reveal 2+ lower extremity edema. NEUROLOGIC: She seems to be grossly intact. LABORATORY DATA: Her chest x-ray: There is a left lower lobe consolidation may represent an infiltr ate, also reveals cardiomegaly. White count of 23.8, hemoglobin of 8.2, hematocrit 24.3 and platelet s of 361,000. Sodium is 141, potassium 4.9, chloride 106, CO2 of 20 with a BUN of 85 and a creatinin e of 5.2. Her glucose is 147. At this time her creatinine kinase is 1308, which is decreasing. IMPRESSION: The patient has rhabdomyolysis and acute renal failure requiring dialysis. The patient is post-cholecystectomy and has anemia. She has a history of congestive heart failure, but also ther e is a left lower lobe infiltrate, most likely representing pneumonia. The patient has a history of hypertension, diabetes, anemia, deep venous thrombosis, and congestive heart failure. PLAN: We will continue with albuterol as a bronchodilator. The patient is on Dilaudid as far as percy n is concerned. She is getting her up and Zofran as well as Synthroid and her Reglan. We will dunia nue with the O2 via nasal cannula. Continue with aggressive pulmonary toilet. The patient is being evaluated at this time for possible dialysis. We will continue to treat aggressively along with the other consultants and the primary care doctor. Theodore Reddy MD cc: [id number] TT: 07/05/2016 09:46:22 Confirmation # [id number] Dictation # [id number] jn
[2016-07-05] MEDS: Nystatin 100,000 Units/gm Topical Pow(15 gm) TOP SCH ×2 (10:09→17:21)
--- NOTE | 2016-07-05 17:50 | CP.PCM.PN ---
Subjective - Date & Time of Evaluation Date of Evaluation: 07/05/16 Time of Evaluation: 10:00 - Subjective Subjective: Patient denies any shortness of breath; still no feeling in L arm; Objective - Vital Signs/Intake and Output Vital Signs (last 24 hours): Temp Pulse Resp BP Pulse Ox 98.5 F 111 H 22 105/52 L 96 07/05/16 16:00 07/05/16 16:12 07/05/16 16:12 07/05/16 16:12 07/05/16 16:12 Intake and Output: 07/05/16 07/05/16 06:59 18:59 Intake Total 200 Output Total 160 Balance 40 - Medications Medications: Current Medications Albuterol Sulfate (Albuterol 0.083% Inhal Lorri (2.5 Mg/3 Ml) Ud) 2.5 mg IH [id number] [facility] Last Admin: 07/05/16 13:06 Dose: 2.5 mg Albuterol Sulfate (Albuterol 0.083% Inhal Lorri (2.5 Mg/3 Ml) Ud) 2.5 mg IH Q3 PRN PRN Reason: SOB Ferrous Sulfate (Feosol) 324 mg PO BID [facility] Last Admin: 07/05/16 17:20 Dose: 324 mg Heparin Sodium (Porcine) (Heparin) 5,000 units SC Q12 [facility] PRN Reason: Protocol Last Admin: 07/05/16 09:41 Dose: 5,000 units Hydromorphone HCl (Dilaudid) 1 mg IVP Q4H PRN PRN Reason: Pain, moderate (4-7) Last Admin: 07/04/16 22:19 Dose: 1 mg Meropenem 250 mg/ Sodium (Chloride) 100 mls @ 100 mls/hr IVPB Q12H [facility] PRN Reason: Protocol Stop: 07/13/16 09:46 Last Admin: 07/05/16 09:42 Dose: 100 mls/hr Insulin Human Lispro (Humalog Low) 0 units SC ACHS [facility] PRN Reason: Protocol Last Admin: 07/05/16 16:30 Dose: Not Given Levothyroxine Sodium (Synthroid) 75 mcg PO ACB [facility] Last Admin: 07/05/16 07:58 Dose: 75 mcg Metoclopramide HCl (Reglan) 10 mg IV ONCE PRN PRN Reason: Nausea/Vomiting Nystatin (Nystop Topical Powder) 0 gm TOP BID [facility] Last Admin: 07/05/16 17:21 Dose: 1 applic Ondansetron HCl (Zofran Inj) 4 mg IVP Q6H PRN PRN Reason: Nausea/Vomiting Last Admin: 06/30/16 12:15 Dose: 4 mg Ondansetron HCl (Zofran Inj) 4 mg IVP ONCE PRN PRN Reason: Nausea/Vomiting Pantoprazole Sodium (Protonix Inj) 40 mg IVP DAILY [facility] Last Admin: 07/05/16 09:41 Dose: 40 mg - Labs Labs: 07/05/16 05:30 07/05/16 05:30 PT 10.4 Seconds (9.9-11.8) 07/02/16 05:30 INR 0.96 (0.93-1.08) 07/02/16 05:30 APTT 39.0 Seconds (23.7-30.8) H 07/02/16 11:00 - Constitutional Appears: Well, No Acute Distress - Head Exam Head Exam: NORMOCEPHALIC - Eye Exam Eye Exam: Normal appearance. absent: Scleral icterus - ENT Exam ENT Exam: Mucous Membranes Moist - Respiratory Exam Respiratory Exam: NORMAL BREATHING PATTERN - Cardiovascular Exam Cardiovascular Exam: RRR - GI/Abdominal Exam GI & Abdominal Exam: Soft - Extremities Exam Extremities Exam: Normal Capillary Refill Additional comments: Markedly edematous legs; - Neurological Exam Neurological Exam: Alert, Awake - Psychiatric Exam Psychiatric exam: Normal Affect, Normal Mood - Skin Skin Exam: Warm. absent: Cyanosis Assessment and Plan (1) Acute renal failure Assessment & Plan: Secondary to rhabdo; oliguric renal failure; initiating HD today as a pre- emptive measure to avoid needing urgent HD tomorrow; will do low blood flow and minimal UF to avoid any hypotension; Status: Acute (2) SIRS (systemic inflammatory response syndrome) Assessment & Plan: On antibiotics; to be re-dosed after HD; Status: Acute (3) Rhabdomyolysis Assessment & Plan: CK has been improving steadily but renal tubular damage already done before patient's presentation; HD today for supportive measure; Status: Resolved (4) HTN (hypertension) Assessment & Plan: Now with low/normal BP, seeking to avoid hypotension with minimal UF on HD; Status: Chronic - Assessment and Plan (Free Text) Assessment: Critical care time spent seeing patient, reviewing records, formulating plan, discussing care with critical care and primary teams > 35 minutes;
--- NOTE | 2016-07-05 18:22 | RAD ---
HISTORY: follow up COMPARISON: 07/04/2016 FINDINGS: LUNGS: Mild pulmonary vascular congestive changes with bilateral lower lobe alveolar-type infiltrates and/or atelectasis. Small effusions not excluded. PLEURA: As above. No pneumothorax apparent. CARDIOVASCULAR: Cardiomegaly. OSSEOUS STRUCTURES: No significant abnormalities. VISUALIZED UPPER ABDOMEN: Normal. OTHER FINDINGS: Interval placement right IJ dialysis catheter with tip in the SVC IMPRESSION: Mild vascular congestive changes with what may represent the small bilateral lower lobe alveolar-type infiltrates and/or atelectasis. Tiny effusions not excluded. Interval placement right IJ central venous line as above
--- NOTE | 2016-07-05 18:37 | PN ---
DATE: 07/05/2016 SUBJECTIVE: The patient was seen earlier this morning in the ICU, in no acute distress, nontoxic. S he had an uneventful night. PHYSICAL EXAMINATION: VITAL SIGNS: Temperature is 98, blood pressure is 100/50, respiratory rate 21, heart rate of 112. HEENT: Unremarkable. NECK: Supple. LUNGS: Have decreased breath sounds. HEART: Normal S1, S2. ABDOMEN: Soft. LABORATORY DATA: Reveals a white count of 23,000 with 85% neutrophils, 2% bands. The patient's coag ulation is noted. Chemistries reveal the BUN of 85, creatinine of 5.2. Urinalysis is noted and toxi cology is noted. Microbiology reveals the patient's bile culture to have Klebsiella oxytoca, Klebsie lla pneumoniae and Proteus mirabilis; a heavy growth of Klebsiella oxytoca and Proteus mirabilis and a light growth of the Klebsiella pneumoniae. The sensitivity is pending. An earlier bile culture fr om the same day of the reveals the same 3 organisms and relatively pansensitive organisms to all 3 of them. Review of the pathology of the gallbladder reveals acute necrotizing cholecystitis AND h yperplastic lymph node. Review of the orders reveals the patient to be on meropenem. Chest x-ray from this morning is pendin g. Dr. Smith note is reviewed. Dr. Theodore Reddy's note is reviewed. note is reviewed. Dr. Sheehan's note is reviewed. ASSESSMENT AND PLAN: This is a 75-year-old female with severe sepsis, acute renal failure, acute sev ere rhabdomyolysis, cholecystitis, biliary tree, cholelithiasis, hypertension, chronic congestive hea rt failure, diabetes mellitus, morbid obesity with a BMI of 47, hypothyroidism and status post open c holecystectomy, postop day #2, with minimal decrease in her white count. Concerned about this white count at 23,800 postop day #2. Concerned about development of a new infection either a pneumonia and /or complications of surgery. Will continue the meropenem. Follow the white count closely. I will make further recommendations based on tomorrows white count. Ang Banks MD cc: [phone] TT: 07/05/2016 18:36:11 Confirmation # [id number] Dictation # [id number]
--- NOTE | 2016-07-05 20:51 | PN ---
DATE: 07/05/2016 SUBJECTIVE: This patient was seen and evaluated today in the morning and spoke with the resident. The patient was tolerating clear liquid diet. PHYSICAL EXAMINATION: VITAL SIGNS: Afebrile, temperature 98.5, blood pressure is 102/63, pulse 115. HEENT: Pupils equally reactive to light. Not jaundiced. NECK: Supple. HEART: S1, S2 heard. LUNGS: Bilateral air entry present. ABDOMEN: Surgical scar present. EXTREMITIES: Bilateral mild edema present. NEUROLOGIC: Alert, oriented. Moves all the extremities. LABORATORY DATA: Hemoglobin 8.2, hematocrit 24.3, WBC 23.8, platelets 361, BUN 85, creatinine 5.2. LFTs: AST 146, ALT is 118, alkaline phosphatase 95. IMPRESSION AND PLAN: This is a 75-year-old patient with a past medical history of diabetes mellitus, hypertension, chronic kidney disease, history of gallstone , admitted with acute cholecystitis, status post open cholecystectomy for gangrenous gallbladder. LFTs remain normal. The patient did have a history of common bile duct stones in the past, had ERCP and removal of the stones in the past. This time MRCP showed normal common bile duct. The patient is also planned for dialysis. Blood cultures revealed Klebsiella. Continue the IV antibiotics. Surgical followup. We discussed with the resident and will continue to closely follow up her care and suggest further management based on the clinical course. Thank you very much for allowing us to participate in the care of the patient. Kavon Duncan MD cc: [phone] TT: 07/05/2016 20:51:04 Confirmation # [id number] Dictation # [id number] maksim SALGADO
[2016-07-06] MEDS: Albuterol 0.083% Inhal Sol (2.5 mg/3 mL) UD IH SCH ×4 (02:36→20:20)
[2016-07-06] MEDS: HYDROmorphone 1 mg/ml ISec IVP PRN (05:31)
[2016-07-06 06:06] LABS: ALB/GLOB RATIO 0.9 (1.1-1.8); CALCIUM 8.7 mg/dL (8.4-10.5); POTASSIUM 4.2 mmol/L (3.6-5.0); TOTAL PROTEIN 5.9 g/dL (5.8-8.3)
[2016-07-06 06:23] LABS: MEAN CELL VOLUME 90.8 fL (80.0-105.0); MEAN CORPUSCULAR HGB CONC 34.2 g/dl (31.0-37.0); MEAN PLATELET VOLUME 9.7 fl (7.0-11.0); PLATELET COUNT 356 10^3/uL (120.0-450.0)
[2016-07-06 06:32] LABS: HEMATOCRIT 23.7 % (36.0-48.0)
[2016-07-06 06:33] LABS: ADD MANUAL DIFF? YES
[2016-07-06] MEDS: Insulin Lispro (humaLOG) LOW Coverage SC SCH ×4 (07:41→22:28)
[2016-07-06 08:35] LABS: EOSINOPHIL 5 % (0.0-3.0); NEUTROPHIL 81 % (50.0-70.0)
[2016-07-06 08:36] LABS: METAMYELOCYTE 1 %; MYELOCYTE 3 %
--- NOTE | 2016-07-06 08:55 | PN ---
DATE: 07/06/2016 SUBJECTIVE: The patient appears comfortable this morning. She is not short of breath at rest. PHYSICAL EXAMINATION: VITAL SIGNS: Temperature is 99.0. Pulse on the monitor is 105, respiratory rate 15, blood pressure 120/63. Oxygen saturation on nasal cannula is 95%. HEENT: Normocephalic. Positive ecchymosis-right facial area. No JVD. CARDIOVASCULAR: Systolic ejection murmur at the lower left sternal border. No S3 gallop. LUNGS: Decreased breath sounds at the bases. Minimal bilateral rhonchi. No wheezing. EXTREMITIES: Positive for edema. No cyanosis, no clubbing. Calves are nontender to palpation. GASTROINTESTINAL: Abdomen is soft. It is less distended and less tender to palpation. Bowel sounds are improved. SKIN: Positive cellulitic changes on the legs (anterior aspects). No rashes. NEUROLOGIC: Limited at the present time. PERTINENT LABORATORY DATA: Chest x-ray was done this morning and reviewed. It is a poor rotated portable film. There is a mild increase in the pulmonary vascular congestive changes. Minimal atelectatic changes at the bases remain. IMPRESSION: 1. Acute rhabdomyolysis. Status post fall. 2. Acute renal failure. 3. Sepsis syndrome. 4. Acute cholecystitis. Status post cholecystectomy. 5. Anemia. 6. Mild bronchospasm. PLAN: The patient appears comfortable this morning. She is not short of breath at rest. She does state to feeling better overall. I did discuss the case with the night nurse at length. The night nurse stated that the patient had a good night. She did get dialyzed yesterday. I did review the x-ray as above. Again, it is a poor portable film. The film appears to show mild increase in pulmonary vascular congestive changes. Minimal atelectatic changes at the bases remain. I will continue with the current nebulizer treatments and incentive spirometry. I also added chest percussion therapy yesterday - discussed with respiratory. I would continue with the renal evaluation and treatment - noted. I would continue with the antibiotic coverage, as per infectious disease. Surgical and GI evaluations are also noted. Clinical status of the patient is improved. However, she remains very guarded overall. I will discuss the above with the ICU team in the next few moments. I will also discuss the above with the attending physician later this morning. Lionel Sheehan MD cc: [phone] TT: 07/06/2016 08:53:49 Confirmation # [id number] Dictation # [id number] jn MTDD
[2016-07-06] MEDS: Nystatin 100,000 Units/gm Topical Pow(15 gm) TOP SCH ×2 (09:43→17:36)
[2016-07-06] MEDS: Levothyroxine 75 MCG TAB PO SCH (09:44)
--- NOTE | 2016-07-06 09:50 | PN ---
DATE: 07/06/2016 SUBJECTIVE: The patient is resting in bed with O2 via nasal cannula. No complaints of increased mk rtness of breath or cough today. The patient is awake and no complaints of significant pain or fever , chills, or nausea, vomiting. PHYSICAL EXAMINATION: VITAL SIGNS: Her temperature is 99, pulse is 109, respirations are 21, and BP is 103/48. SKIN: Warm and dry. HEAD: Atraumatic, normocephalic. EYES: Reactive to light. EARS, NOSE AND THROAT: Seem to be within normal limits. NECK: Supple. No JVD, no thyroid enlargement, no lymph nodes. HEART: Has regular rate and rhythm, normal S1, S2, but mildly tachycardic. LUNGS: Reveal somewhat decreased breath sounds at the bases with occasional rhonchi. ABDOMEN: Soft. Decreased bowel sounds. No organomegaly noted. GENITALIA AND RECTAL: Deferred. MUSCULOSKELETAL: No joint deformities. EXTREMITIES: Reveal positive lower extremity edema. NEUROLOGIC: She seemed to be grossly intact. As far as her chest x-ray, it reveals that there is pulmonary congestion with left lower lobe opaciti es, maybe infiltrate. LABORATORIES: They reveal a white count of 24.0, hemoglobin of 8.1, hematocrit 23.7 with platelets o f 356,000. The patient's sodium is 140, potassium 4.2, chloride 103, CO2 of 23 with a BUN of 68, pot assium 4.0 and creatinine of 4.0 and a glucose of 134. IMPRESSION: The patient initially presented with rhabdomyolysis with acute renal failure and now req uires dialysis. She is post cholecystectomy and has an anemia, has a history of congestive heart ernestina lure and is noted to have a left lower lobe infiltrate, most likely representing pneumonia. The andrea ent has a history of hypertension, diabetes, anemia, deep venous thrombosis, and congestive heart ernestina lure. PLAN: We will continue with O2 via nasal cannula. Continue with aggressive bronchodilator treatment . The patient is on pain medications of Dilaudid and she is getting Zofran, Synthroid and Reglan als o. She will continue to get dialysis as per renal. We will continue with aggressive pulmonary toile t and O2 via nasal cannula. Theodore M Bey MD cc: [id number] TT: 07/06/2016 09:49:39 Confirmation # [id number] Dictation # [id number]
--- NOTE | 2016-07-06 09:55 | CP.PCM.PN ---
Subjective - Date & Time of Evaluation Date of Evaluation: 07/06/16 Time of Evaluation: 08:49 - Subjective Subjective: General Surgery Progress Note for Dr. Elias This 75F was seen and examined this AM at bedside. Nurse reports no acute events overnight. Patient is reporting no bowel movements or flatus. She denies any abdominal pain, fevers chills, chest pain nausea or vomiting. Objective - Vital Signs/Intake and Output Vital Signs (last 24 hours): Temp Pulse Resp BP Pulse Ox 99.2 F 108 H 18 112/46 L 92 L 07/06/16 08:00 07/06/16 08:00 07/06/16 08:00 07/06/16 08:00 07/06/16 08:00 Intake and Output: 07/06/16 07/06/16 06:59 18:59 Intake Total 530 Output Total 170 Balance 360 - Medications Medications: Current Medications Albuterol Sulfate (Albuterol 0.083% Inhal Lorri (2.5 Mg/3 Ml) Ud) 2.5 mg IH [id number] [facility] Last Admin: 07/06/16 07:25 Dose: 2.5 mg Albuterol Sulfate (Albuterol 0.083% Inhal Lorri (2.5 Mg/3 Ml) Ud) 2.5 mg IH Q3 PRN PRN Reason: SOB Ferrous Sulfate (Feosol) 324 mg PO BID [facility] Last Admin: 07/05/16 17:20 Dose: 324 mg Guaifenesin/Dextromethorphan (Robitussin Dm) 5 ml PO Q4H PRN PRN Reason: Cough Heparin Sodium (Porcine) (Heparin) 5,000 units SC Q12 [facility] PRN Reason: Protocol Last Admin: 07/05/16 21:55 Dose: 5,000 units Hydromorphone HCl (Dilaudid) 1 mg IVP Q4H PRN PRN Reason: Pain, moderate (4-7) Last Admin: 07/06/16 05:31 Dose: 1 mg Meropenem 250 mg/ Sodium (Chloride) 100 mls @ 100 mls/hr IVPB Q12H [facility] PRN Reason: Protocol Stop: 07/13/16 09:46 Last Admin: 07/05/16 21:55 Dose: 100 mls/hr Insulin Human Lispro (Humalog Low) 0 units SC ACHS [facility] PRN Reason: Protocol Last Admin: 07/06/16 07:41 Dose: Not Given Levothyroxine Sodium (Synthroid) 75 mcg PO ACB [facility] Last Admin: 07/05/16 07:58 Dose: 75 mcg Metoclopramide HCl (Reglan) 10 mg IV ONCE PRN PRN Reason: Nausea/Vomiting Nystatin (Nystop Topical Powder) 0 gm TOP BID [facility] Last Admin: 07/05/16 17:21 Dose: 1 applic Ondansetron HCl (Zofran Inj) 4 mg IVP Q6H PRN PRN Reason: Nausea/Vomiting Last Admin: 06/30/16 12:15 Dose: 4 mg Ondansetron HCl (Zofran Inj) 4 mg IVP ONCE PRN PRN Reason: Nausea/Vomiting Pantoprazole Sodium (Protonix Inj) 40 mg IVP DAILY [facility] Last Admin: 07/05/16 09:41 Dose: 40 mg - Labs Labs: 07/06/16 05:30 07/06/16 05:30 PT 10.4 Seconds (9.9-11.8) 07/02/16 05:30 INR 0.96 (0.93-1.08) 07/02/16 05:30 APTT 39.0 Seconds (23.7-30.8) H 07/02/16 11:00 - Constitutional Appears: Non-toxic, No Acute Distress - Head Exam Head Exam: ATRAUMATIC, NORMOCEPHALIC - ENT Exam ENT Exam: Mucous Membranes Moist - Respiratory Exam Respiratory Exam: NORMAL BREATHING PATTERN - Cardiovascular Exam Cardiovascular Exam: +S1, +S2 - GI/Abdominal Exam GI & Abdominal Exam: Distended, Soft. absent: Firm, Guarding, Tenderness Additional comments: Abdominal inscision with ilir in place, well approximated non erythamatous non tender - Neurological Exam Neurological Exam: Alert - Psychiatric Exam Psychiatric exam: Normal Affect, Normal Mood - Skin Skin Exam: Dry, Intact, Normal Color Assessment and Plan - Assessment and Plan (Free Text) Assessment: This is a 75F w. cholecystitis, s/p open cholecystectomy POD#3 Hamzah 25cc 24h serosanguinous, WBC 24, LFT's improving Plan: -Monitor bowel function -CLD -c/w abx -c/w pain management -Will Discuss with Dr. Curt Mcrae, PGY1
--- NOTE | 2016-07-06 11:45 | PN ---
DATE: 07/06/2016 The patient is status post hemodialysis yesterday, currently seen in bed, more comfortable than blank mcdermott. No chest pain, no shortness of breath, no nausea, no vomiting. PHYSICAL EXAMINATION: VITAL SIGNS: Blood pressure is currently 112/46, pulse rate of 108. Temperature is 99.2. O2 satura tion is 92 on room air. HEENT: Normocephalic, atraumatic. [place] conjunctivae, nonicteric sclerae. NECK: No JVD, no thyromegaly. CARDIOVASCULAR: Regular rate and rhythm. S1, S2 appreciated, mildly tachycardic. No S3 noted. LUNGS: Bilateral air entry is positive. No wheezes or rhonchi. ABDOMEN: Nondistended, nontender with positive bowel sounds. EXTREMITIES: Positive for anasarca diffusely. She has a new Port-A-Cath that was placed. LABORATORY DATA: WBCs have elevated to 24.0. Hemoglobin is down to 8.1, hematocrit of 23.7, platele ts of 356. Chemistry within normal limits except for a BUN of 6.8 with a creatinine of 4.0. She has had surgical evaluation where the bile is growing Klebsiella oxytoca, as well as pneumonia, as well as Proteus mirabilis; this x 2. Blood cultures are negative at this point. ASSESSMENT: However, assessment at this point is: 1. Sepsis. 2. Cholecystitis status post cholecystectomy. 3. Rhabdo status post fall. 4. Acute renal insufficiency with hemodialysis. 5. Diabetes mellitus. PLAN: At this point, we will watch labs last very closely, and we will give IV antibiotics, which jamaica mcdermott is on meropenem, as well as pain medication, and watch this patient very closely. We will get phys ical therapy on board, and we will watch for the surgical pathology and advance the diet to clear liq uids. Roosevelt Beltran MD cc: [id number] TT: 07/06/2016 11:45:26 Confirmation # [id number] Dictation # [id number]
[2016-07-06 15:28] LABS: PH,URINE 5.5 (4.7-8.0); URINE BILIRUBIN SMALL (NEGATIVE); URINE BLOOD LARGE (NEGATIVE); URINE GLUCOSE (UA) NEGATIVE (NEGATIVE); URINE KETONE NEGATIVE (NEGATIVE); URINE LEUKOCYTE ESTERASE NEGATIVE Leu/uL (NEGATIVE); URINE PROTEIN 30 mg/dL (<30 mg/dL); URINE UROBILINOGEN 0.2 E.U./dL (<1 E.U./dL)
[2016-07-06 15:33] LABS: URINE APPEARANCE SL CLOUDY (CLEAR); URINE COLOR YELLOW (YELLOW)
--- NOTE | 2016-07-06 15:33 | PN ---
DATE: 07/06/2016 SUBJECTIVE: The patient is in bed in no acute distress, nontoxic. The patient was seen in the ICU earlier in 128, bed 1. No abdominal pain. PHYSICAL EXAMINATION: VITAL SIGNS: Temperature is 99, blood pressure is 120/50, respiratory rate 22, heart rate of 112. HEENT: Unremarkable. NECK: Supple. LUNGS: Have decreased breath sounds. HEART: Normal S1, S2. ABDOMEN: Soft. LABORATORY DATA: Reveals a white count of 24,000, hemoglobin of 8 and platelets of 356. Chemistries reveals a BUN of 68, creatinine of 4.0. Urinalysis is noted and microbiology is noted. The patient has Klebsiella oxytoca, Klebsiella pneumoniae and Proteus. Review of the orders reveals the patient to be on meropenem. Dr. Roosevelt Beltran's note is reviewed and Dr. Elias's note is reviewed. Dr. Sheehan's note is reviewed. The patient had a chest x-ray; the results are pending. ASSESSMENT AND PLAN: A 75-year-old female with severe sepsis, acute renal failure, acute severe rhab domyolysis, cholecystitis and cholelithiasis, hypertension, chronic congestive heart failure, diabete s mellitus, morbid obesity, BMI of 47, hypothyroidism, status post open cholecystectomy post-procedur e day #3 with persistent leukocytosis and currently on meropenem. Cultures with Klebsiella oxytoca, Klebsiella pneumoniae and Proteus with a white count of 24,000. Will check on the repeat chest x-ray and order luna culture results. The etiology of the persistent leukocytosis is concerning. I am con cerned about developing nosocomial pneumonia in a patient with renal failure. Ang Banks MD cc: [id number] TT: 07/06/2016 15:32:18 Confirmation # [id number] Dictation # [id number]
[2016-07-06 15:38] LABS: URINE BACTERIA MANY (NEG); URINE WBC 15 - 20 /hpf (0-6)
[2016-07-06 15:40] LABS: URINE AMORPHOUS SEDIMENT FEW
--- NOTE | 2016-07-06 16:44 | RAD ---
HISTORY: follow up COMPARISON: 07/05/2016. FINDINGS: LUNGS: Mild central pulmonary vascular congestive changes with bibasilar atelectasis and or small infiltrates. Questionable small bilateral effusions. No change right IJ large-bore central venous line with tip in the SVC. PLEURA: No significant pleural effusion identified, no pneumothorax apparent. CARDIOVASCULAR: Normal. OSSEOUS STRUCTURES: No significant abnormalities. VISUALIZED UPPER ABDOMEN: Normal. OTHER FINDINGS: None. IMPRESSION: Mild central pulmonary vascular congestive changes with bibasilar atelectasis and or small infiltrates. Questionable small bilateral effusions.
--- NOTE | 2016-07-06 23:31 | CP.PCM.PN ---
Subjective - Date & Time of Evaluation Date of Evaluation: 07/06/16 Time of Evaluation: 09:30 - Subjective Subjective: Patient drowsy after reportedly not sleeping well overnight; denies sob; tolerated 1st HD session yesterday evening without any hypotension although BP did drop transiently afterward; Objective - Vital Signs/Intake and Output Vital Signs (last 24 hours): Temp Pulse Resp BP Pulse Ox 98.5 F 107 H 23 79/35 L 95 07/06/16 20:00 07/06/16 18:00 07/06/16 18:00 07/06/16 18:00 07/06/16 18:00 Intake and Output: 07/06/16 07/07/16 18:59 06:59 Intake Total 760 Output Total 148 Balance 612 - Medications Medications: Current Medications Albuterol Sulfate (Albuterol 0.083% Inhal Lorri (2.5 Mg/3 Ml) Ud) 2.5 mg IH [id number] [facility] Last Admin: 07/06/16 20:20 Dose: Not Given Albuterol Sulfate (Albuterol 0.083% Inhal Lorri (2.5 Mg/3 Ml) Ud) 2.5 mg IH Q3 PRN PRN Reason: SOB Benzocaine/Menthol (Cepacol Sore Throat) 1 adin MT Q2H PRN PRN Reason: Sore Throat Ferrous Sulfate (Feosol) 324 mg PO BID [facility] Last Admin: 07/06/16 17:34 Dose: 324 mg Guaifenesin/Dextromethorphan (Robitussin Dm) 5 ml PO Q4H PRN PRN Reason: Cough Heparin Sodium (Porcine) (Heparin) 5,000 units SC Q12 [facility] PRN Reason: Protocol Last Admin: 07/06/16 22:27 Dose: 5,000 units Hydromorphone HCl (Dilaudid) 1 mg IVP Q4H PRN PRN Reason: Pain, moderate (4-7) Last Admin: 07/06/16 05:31 Dose: 1 mg Meropenem 250 mg/ Sodium (Chloride) 100 mls @ 100 mls/hr IVPB Q12H [facility] PRN Reason: Protocol Stop: 07/13/16 09:46 Last Admin: 07/06/16 22:26 Dose: 100 mls/hr Insulin Human Lispro (Humalog Low) 0 units SC ACHS [facility] PRN Reason: Protocol Last Admin: 07/06/16 22:28 Dose: Not Given Levothyroxine Sodium (Synthroid) 75 mcg PO ACB [facility] Last Admin: 07/06/16 09:44 Dose: 75 mcg Metoclopramide HCl (Reglan) 10 mg IV ONCE PRN PRN Reason: Nausea/Vomiting Nystatin (Nystop Topical Powder) 0 gm TOP BID [facility] Last Admin: 07/06/16 17:36 Dose: 1 applic Ondansetron HCl (Zofran Inj) 4 mg IVP Q6H PRN PRN Reason: Nausea/Vomiting Last Admin: 06/30/16 12:15 Dose: 4 mg Ondansetron HCl (Zofran Inj) 4 mg IVP ONCE PRN PRN Reason: Nausea/Vomiting Pantoprazole Sodium (Protonix Inj) 40 mg IVP DAILY [facility] Last Admin: 07/06/16 09:51 Dose: 40 mg - Labs Labs: 07/06/16 05:30 07/06/16 05:30 PT 10.4 Seconds (9.9-11.8) 07/02/16 05:30 INR 0.96 (0.93-1.08) 07/02/16 05:30 APTT 39.0 Seconds (23.7-30.8) H 07/02/16 11:00 - Constitutional Appears: Non-toxic, No Acute Distress - Head Exam Head Exam: NORMAL INSPECTION - Eye Exam Eye Exam: Normal appearance. absent: Scleral icterus - ENT Exam ENT Exam: Mucous Membranes Moist - Neck Exam Neck Exam: Normal Inspection - Respiratory Exam Respiratory Exam: Clear to Ausculation Bilateral, NORMAL BREATHING PATTERN. absent: Rales, Rhonchi, Wheezes - Cardiovascular Exam Cardiovascular Exam: REGULAR RHYTHM, +S1, +S2 - GI/Abdominal Exam GI & Abdominal Exam: Soft. absent: Distended, Tenderness - Extremities Exam Additional comments: moderately edematous legs - Neurological Exam Neurological Exam: Awake Additional comments: drowsy - Skin Skin Exam: Normal Color, Warm Assessment and Plan (1) Acute renal failure Assessment & Plan: Oliguric ATN secondary to rhabdo; s/p 1st HD session yesterday evening as patient was still oliguric and so underwent gentle HD session pre-emptively with minimal UF (500 cc); still oliguric this morning; relatively stable lytes and volume status, no urgent indication for HD today; -continue to monitor daily for need for HD -keep MAP > 65 -avoid nephrotoxic agents Status: Acute (2) Rhabdomyolysis Assessment & Plan: Secondary to immobilization and RUE muscle injury; oliguric so no added benefit of IVF anymore for the rhabdo; avoid Ca repletion unless symptomatic or ECG changes; Status: Acute (3) Sepsis Assessment & Plan: Secondary to acute cholecystitis, now s/o cholecystectomy; on meropenem 1g q12h , should consider switching to q24h dosing for severe renal failure; Status: Acute (4) Anemia Assessment & Plan: Secondary to iron deficiency; started on PO iron which is likely not sufficient but would avoid IV iron as patient still being treated for sepsis and still with marked leukocytosis; Status: Acute
[2016-07-07] MEDS: Albuterol 0.083% Inhal Sol (2.5 mg/3 mL) UD IH SCH ×3 (03:00→13:22)
--- NOTE | 2016-07-07 07:49 | CP.PCM.PN ---
Subjective - Date & Time of Evaluation Date of Evaluation: 07/07/16 Time of Evaluation: 07:49 - Subjective Subjective: Dr. Oliver PGY1 Surgery Note for Dr. Elias Patient seen and examined at bedside this AM; denies any overnight events or acute complaints; denies fevers/chills, BUTTS, CP, SOB, abdominal pain, N/V/D, dysuria/freq/urg, or lower extremity pain/swelling. Objective - Vital Signs/Intake and Output Vital Signs (last 24 hours): Temp Pulse Resp BP Pulse Ox 98.4 F 99 H 22 134/60 92 L 07/07/16 00:00 07/07/16 07:00 07/07/16 07:00 07/07/16 07:00 07/07/16 07:00 Intake and Output: 07/07/16 07/07/16 06:59 18:59 Intake Total 200 Output Total 320 Balance -120 - Medications Medications: Current Medications Albuterol Sulfate (Albuterol 0.083% Inhal Lorri (2.5 Mg/3 Ml) Ud) 2.5 mg IH [id number] [facility] Last Admin: 07/07/16 07:32 Dose: 2.5 mg Albuterol Sulfate (Albuterol 0.083% Inhal Lorri (2.5 Mg/3 Ml) Ud) 2.5 mg IH Q3 PRN PRN Reason: SOB Benzocaine/Menthol (Cepacol Sore Throat) 1 adin MT Q2H PRN PRN Reason: Sore Throat Ferrous Sulfate (Feosol) 324 mg PO BID [facility] Last Admin: 07/06/16 17:34 Dose: 324 mg Guaifenesin/Dextromethorphan (Robitussin Dm) 5 ml PO Q4H PRN PRN Reason: Cough Heparin Sodium (Porcine) (Heparin) 5,000 units SC Q12 [facility] PRN Reason: Protocol Last Admin: 07/06/16 22:27 Dose: 5,000 units Hydromorphone HCl (Dilaudid) 1 mg IVP Q4H PRN PRN Reason: Pain, moderate (4-7) Last Admin: 07/06/16 05:31 Dose: 1 mg Meropenem 250 mg/ Sodium (Chloride) 100 mls @ 100 mls/hr IVPB Q12H [facility] PRN Reason: Protocol Stop: 07/13/16 09:46 Last Admin: 07/06/16 22:26 Dose: 100 mls/hr Insulin Human Lispro (Humalog Low) 0 units SC ACHS [facility] PRN Reason: Protocol Last Admin: 07/06/16 22:28 Dose: Not Given Levothyroxine Sodium (Synthroid) 75 mcg PO ACB [facility] Last Admin: 07/06/16 09:44 Dose: 75 mcg Metoclopramide HCl (Reglan) 10 mg IV ONCE PRN PRN Reason: Nausea/Vomiting Nystatin (Nystop Topical Powder) 0 gm TOP BID [facility] Last Admin: 07/06/16 17:36 Dose: 1 applic Ondansetron HCl (Zofran Inj) 4 mg IVP Q6H PRN PRN Reason: Nausea/Vomiting Last Admin: 06/30/16 12:15 Dose: 4 mg Ondansetron HCl (Zofran Inj) 4 mg IVP ONCE PRN PRN Reason: Nausea/Vomiting Pantoprazole Sodium (Protonix Inj) 40 mg IVP DAILY [facility] Last Admin: 07/06/16 09:51 Dose: 40 mg - Labs Labs: 07/06/16 05:30 07/06/16 05:30 PT 10.4 Seconds (9.9-11.8) 07/02/16 05:30 INR 0.96 (0.93-1.08) 07/02/16 05:30 APTT 39.0 Seconds (23.7-30.8) H 07/02/16 11:00 - Constitutional Appears: Non-toxic - Head Exam Additional comments: Head Exam: ATRAUMATIC, NORMOCEPHALIC - ENT Exam ENT Exam: Mucous Membranes Moist - Respiratory Exam Respiratory Exam: NORMAL BREATHING PATTERN - Cardiovascular Exam Cardiovascular Exam: +S1, +S2 - GI/Abdominal Exam GI & Abdominal Exam: Distended, Soft. absent: Firm, Guarding, Tenderness Additional comments: Abdominal incision with ilir in place, well approximated no redness non tender - Neurological Exam Neurological Exam: Alert - Psychiatric Exam Psychiatric exam: Normal Affect, Normal Mood - Skin Skin Exam: Dry, Intact, Normal Color - Psychiatric Exam Psychiatric exam: Normal Affect Assessment and Plan - Assessment and Plan (Free Text) Assessment: This is a 75F s/p open cholecystectomy POD#4 Plan: -Monitor bowel function -CLD -Hamzah has 20cc of serosanguinous drainage over 24 hours -patient clinically stable -c/w abx -c/w pain management -Will Discuss with Dr. Curt Oliver PGY1 Surgery Note for Dr. Elias
--- NOTE | 2016-07-07 07:55 | PN ---
DATE: 07/07/2016(620am--705am) SUBJECTIVE: The patient appears comfortable at rest. She is not short of breath. PHYSICAL EXAMINATION: VITAL SIGNS: Temperature is 98.4, pulse 98, respirations 18/20, blood pressure 109/48. Oxygen saturation on nasal cannula is currently 95%. HEENT: Normocephalic. Positive ecchymosis -- right facial area. No JVD. CARDIOVASCULAR: Systolic ejection murmur at the lower left sternal border. No S3 gallop. LUNGS: Decreased breath sounds at the bases. Minimal rhonchi. No wheezing. EXTREMITIES: Positive for edema. No cyanosis, no clubbing. Calves are nontender to palpation. GASTROINTESTINAL: Abdomen is soft. It is less distended and less tender to palpation. Bowel sounds are improved. SKIN: Positive cellulitic changes on the legs (anterior aspect). No rashes. NEUROLOGIC: Limited at the present time. PERTINENT LABORATORY DATA: Chest x-ray was done this morning and reviewed. There is no significant change from the previous films. IMPRESSION: 1. Acute rhabdomyolysis. Status post fall. 2. Acute renal failure. 3. Sepsis syndrome. 4. Acute cholecystitis. Status post cholecystectomy. 5. Anemia. 6. Mild bronchospasm. PLAN: The patient appears comfortable this morning. She is not short of breath at rest. She states she is feeling much better overall. I did discuss the case with the night nurse at length. The night nurse stated that the patient had a good night. Hopefully, she will be redialyzed this morning. I did review the x-ray as above. It is not significantly changed from the previous films. I will continue with the current nebulizer treatments, chest percussion therapy and incentive spirometry for now. I would continue with the antibiotic coverage as per infectious disease. There are no temperatures noted. Repeat a.m. labs are pending. Surgical and GI evaluations are also ongoing. Clinical status of the patient is certainly improved -- compared to last week. However, the overall status/prognosis of this patient remains guarded. I will discuss the above with the entire ICU team in the next few moments. I will also discuss the above with the attending physician -- Dr. Porter. Lionel Sheehan MD cc: [phone] TT: 07/07/2016 07:55:04 Confirmation # [id number] Dictation # [id number] DAMIAN
[2016-07-07] MEDS: Insulin Lispro (humaLOG) LOW Coverage SC SCH ×4 (08:19→22:21)
[2016-07-07] MEDS: Levothyroxine 75 MCG TAB PO SCH (08:20)
[2016-07-07 10:07] LABS: MEAN CELL VOLUME 91.8 fL (80.0-105.0); MEAN CORPUSCULAR HGB CONC 34.8 g/dl (31.0-37.0); MEAN PLATELET VOLUME 9.7 fl (7.0-11.0); PLATELET COUNT 346 10^3/uL (120.0-450.0); RED CELL DISTRIBUTION WIDTH 15.3 % (11.5-14.5)
[2016-07-07] MEDS: Nystatin 100,000 Units/gm Topical Pow(15 gm) TOP SCH (10:07)
[2016-07-07 10:10] LABS: ALB/GLOB RATIO 0.8 (1.1-1.8); CALCIUM 8.5 mg/dL (8.4-10.5); POTASSIUM 4.2 mmol/L (3.6-5.0)
--- NOTE | 2016-07-07 10:12 | RAD ---
HISTORY: follow up COMPARISON: 07/06/2016 FINDINGS: LUNGS: No active pulmonary disease. PLEURA: No significant pleural effusion identified, no pneumothorax apparent. CARDIOVASCULAR: Mild to moderate cardiomegaly. Mild vascular congestion showing slight improvement OSSEOUS STRUCTURES: No significant abnormalities. VISUALIZED UPPER ABDOMEN: Normal. OTHER FINDINGS: None. IMPRESSION: Mild to moderate cardiomegaly. Mild vascular congestion showing slight improvement
[2016-07-07 10:20] LABS: ADD MANUAL DIFF? YES; HEMATOCRIT 22.4 % (36.0-48.0)
--- NOTE | 2016-07-07 10:40 | CP.PCM.PN ---
<Luis Conde - Last Filed: 07/07/16 13:15> Subjective - Date & Time of Evaluation Date of Evaluation: 07/07/16 Time of Evaluation: 10:37 - Subjective Subjective: Medicine progress note - Luis Conde PGY1 Patient seen and examined at bedside this morning. No acute overnight events or new complaints. She was dialyzed over the weekend per nephrology recommendations. urine output overnight ~200cc and this morning roughly 60cc. She denies chest pain, palpitations, SOB. Her right upper extremity remains unchanged and she is still unable to feel sensation and has no motor function. Prognosis remains guarded. Will continue to follow this complicated patient closely. Objective - Vital Signs/Intake and Output Vital Signs (last 24 hours): Temp Pulse Resp BP Pulse Ox 98.4 F 99 H 22 134/60 92 L 07/07/16 00:00 07/07/16 07:00 07/07/16 07:00 07/07/16 07:00 07/07/16 07:00 Intake and Output: 07/07/16 07/07/16 06:59 18:59 Intake Total 400 Output Total 340 Balance 60 - Medications Medications: Current Medications Albuterol Sulfate (Albuterol 0.083% Inhal Lorri (2.5 Mg/3 Ml) Ud) 2.5 mg IH [id number] [facility] Last Admin: 07/07/16 07:32 Dose: 2.5 mg Albuterol Sulfate (Albuterol 0.083% Inhal Lorri (2.5 Mg/3 Ml) Ud) 2.5 mg IH Q3 PRN PRN Reason: SOB Benzocaine/Menthol (Cepacol Sore Throat) 1 adin MT Q2H PRN PRN Reason: Sore Throat Ferrous Sulfate (Feosol) 324 mg PO BID [facility] Last Admin: 07/07/16 09:55 Dose: 324 mg Guaifenesin/Dextromethorphan (Robitussin Dm) 5 ml PO Q4H PRN PRN Reason: Cough Heparin Sodium (Porcine) (Heparin) 5,000 units SC Q12 [facility] PRN Reason: Protocol Last Admin: 07/07/16 09:55 Dose: 5,000 units Hydromorphone HCl (Dilaudid) 1 mg IVP Q4H PRN PRN Reason: Pain, moderate (4-7) Last Admin: 07/06/16 05:31 Dose: 1 mg Meropenem 250 mg/ Sodium (Chloride) 100 mls @ 100 mls/hr IVPB Q12H [facility] PRN Reason: Protocol Stop: 07/13/16 09:46 Last Admin: 07/07/16 09:59 Dose: 100 mls/hr Insulin Human Lispro (Humalog Low) 0 units SC ACHS [facility] PRN Reason: Protocol Last Admin: 07/07/16 08:19 Dose: Not Given Levothyroxine Sodium (Synthroid) 75 mcg PO ACB [facility] Last Admin: 07/07/16 08:20 Dose: 75 mcg Metoclopramide HCl (Reglan) 10 mg IV ONCE PRN PRN Reason: Nausea/Vomiting Nystatin (Nystop Topical Powder) 0 gm TOP BID [facility] Last Admin: 07/07/16 10:07 Dose: 1 applic Ondansetron HCl (Zofran Inj) 4 mg IVP Q6H PRN PRN Reason: Nausea/Vomiting Last Admin: 06/30/16 12:15 Dose: 4 mg Ondansetron HCl (Zofran Inj) 4 mg IVP ONCE PRN PRN Reason: Nausea/Vomiting Pantoprazole Sodium (Protonix Inj) 40 mg IVP DAILY [facility] Last Admin: 07/07/16 09:54 Dose: 40 mg - Labs Labs: 07/07/16 09:45 07/07/16 09:45 PT 10.4 Seconds (9.9-11.8) 07/02/16 05:30 INR 0.96 (0.93-1.08) 07/02/16 05:30 APTT 39.0 Seconds (23.7-30.8) H 07/02/16 11:00 - Constitutional Appears: No Acute Distress - Head Exam Head Exam: ATRAUMATIC, NORMAL INSPECTION, NORMOCEPHALIC - Eye Exam Eye Exam: EOMI, PERRL - ENT Exam ENT Exam: Mucous Membranes Moist - Neck Exam Neck Exam: Normal Inspection - Respiratory Exam Respiratory Exam: Clear to Ausculation Bilateral. absent: Rales, Rhonchi, Wheezes - Cardiovascular Exam Cardiovascular Exam: RRR, +S1, +S2. absent: Gallop, JVD, Rubs - GI/Abdominal Exam GI & Abdominal Exam: Distended, Soft, Tenderness. absent: Firm, Guarding, Rigid , Rebound - Extremities Exam Additional comments: RUE: no sensation; motor function 0/5; radial pulse 1/4; unchanged from prior exams LUE: sensation intact; motor function 5/5; radial pulse 2/4 bilateral lower extremities: 1+ edema; motor function 5/5; sensation intact - Neurological Exam Neurological Exam: Alert, Awake, Oriented x3 - Psychiatric Exam Psychiatric exam: Normal Affect, Normal Mood - Skin Skin Exam: Dry, Intact, Normal Color, Warm Assessment and Plan - Assessment and Plan (Free Text) Plan: 75yo Female with history of CHF, DM2, TIA, hypothyroidism, chronic LE edema, history of DVT and CBD stones admitted to the ICU for rhabdomyolysis, acute Kidney injury, right arm paralysis and acute cholecystitis 1. Rhabdomyolysis/DIMITRY on CKD/Acute tubular necrosis -Patient received 4 liters of fluid in the ED and was aggressively hydrated with NS @ 200cc/hr on presentation -Patient was subsequently given IV albumin 25gm q12h and IV lasix ~1hr post albumin -Urine output over the past 12hours ~200cc; remains oliguric -Patient remains oliguric and had her first dialysis session over the weekend per nephrology recommendations. -Monitor I's and O's -Daily weight -IR consulted - Dr. Cui -Nephrology consulted - Dr. Ron 2. Sepsis -Afebrile however significant leukocytosis -Procalcitonin elevated -Wound culture positive for klebsiella -ID consulted - Dr. Banks -Continue with meropenem per ID recommendations -As per ID, this patient possesses a high risk of developing nosocomial pneumonia 3. Right upper extremity paralysis -CT RUE reviewed; Did not reveal any mass or hematoma involving the brachial plexus, however soft tissue density along plexus possible -RUE sensation/motor function without improvement since admission -RUE venous duplex negative for DVT -No surgical intervention was recommended 4. Acute cholecystitis/CBD dilatation -HIDA scan reviewed; consistent with acute cholecystitis -Abdominal US reviewed; CBD measures 8.6mm, cholelithiasis, gallbladder lesion -CT abd/pelvis reviewed -MRCP reviewed -Patient is s/p cholecystectomy; POD # 4; was originally intubated however extubated successfully in the ICU; will continue to monitor her clinical status post surgery -Continue meropenem per ID recommendations -ID consulted - Dr. Banks -Surgery consulted - Dr. Elias -GI consulted - Dr. Duncan 5. s/p fall -Cervical, maxillofacial, shoulder and hip/pelvis x-rays negative -CT Head negative for acute intracranial pathology 6. DM type 2 -Humalog low dose ISS -Patient currently NPO -Fingersticks ACHS 7. GI/DVT Prophylaxis -Protonix/SCD's Patient seen, reviewed and case discussed with attending, Dr. Beltran <Roosevelt Beltran - Last Filed: 07/11/16 08:56> Objective - Vital Signs/Intake and Output Vital Signs (last 24 hours): Temp Pulse Resp BP Pulse Ox 97.9 F 81 22 153/57 H 93 L 07/11/16 07:30 07/11/16 07:30 07/11/16 07:30 07/11/16 07:30 07/11/16 07:30 Intake and Output: 07/11/16 07/11/16 06:59 18:59 Intake Total 720 Output Total 700 Balance 20 - Medications Medications: Current Medications Acetylcysteine (Acetylcysteine 20%) 3 ml IH BID [facility] Last Admin: 07/11/16 07:20 Dose: 3 ml Albuterol Sulfate (Albuterol 0.083% Inhal Lorri (2.5 Mg/3 Ml) Ud) 2.5 mg IH Q3LCPBM [facility] Last Admin: 07/11/16 07:20 Dose: 2.5 mg Albuterol Sulfate (Albuterol 0.083% Inhal Lorri (2.5 Mg/3 Ml) Ud) 2.5 mg IH Q3 PRN PRN Reason: SOB Last Admin: 07/11/16 05:01 Dose: 2.5 mg Benzocaine/Menthol (Cepacol Sore Throat) 1 adin MT Q2H PRN PRN Reason: Sore Throat Docusate Sodium (Colace) 100 mg PO BID [facility] Last Admin: 07/10/16 17:16 Dose: 100 mg Ferrous Sulfate (Feosol) 324 mg PO BID [facility] Last Admin: 07/10/16 17:17 Dose: 324 mg Guaifenesin/Dextromethorphan (Robitussin Dm) 5 ml PO Q4H PRN PRN Reason: Cough Last Admin: 07/10/16 02:53 Dose: 5 ml Heparin Sodium (Porcine) (Heparin) 5,000 units SC Q12 [facility] PRN Reason: Protocol Last Admin: 07/10/16 21:34 Dose: 5,000 units Meropenem 250 mg/ Sodium (Chloride) 100 mls @ 100 mls/hr IVPB Q12H [facility] PRN Reason: Protocol Stop: 07/13/16 09:46 Last Admin: 07/10/16 21:34 Dose: 100 mls/hr Sodium Chloride (Sodium Chloride 0.9%) 1,000 mls @ 80 mls/hr IV .[id number] [facility] Last Admin: 07/11/16 08:46 Dose: Not Given Insulin Human Lispro (Humalog Low) 0 units SC ACHS [facility] PRN Reason: Protocol Last Admin: 07/11/16 08:42 Dose: Not Given Levothyroxine Sodium (Synthroid) 75 mcg PO 0630 [facility] Last Admin: 07/11/16 06:18 Dose: 75 mcg Midodrine (Proamatine) 10 mg PO Q8H [facility] Last Admin: 07/11/16 08:45 Dose: Not Given Nystatin (Nystop Topical Powder) 0 gm TOP BID [facility] Last Admin: 07/10/16 17:19 Dose: 1 applic Nystatin/Triamcinolone Acetonide (Nystatin/Triamcinolone Cream) 0 ea TOP BID [facility] Last Admin: 07/10/16 17:19 Dose: 1 applic Ondansetron HCl (Zofran Inj) 4 mg IVP Q6H PRN PRN Reason: Nausea/Vomiting Last Admin: 06/30/16 12:15 Dose: 4 mg Pantoprazole Sodium (Protonix Inj) 40 mg IVP DAILY [facility] Last Admin: 07/10/16 09:20 Dose: 40 mg - Labs Labs: 07/10/16 06:00 07/10/16 06:00 PT 10.4 Seconds (9.9-11.8) 07/02/16 05:30 INR 0.96 (0.93-1.08) 07/02/16 05:30 APTT 39.0 Seconds (23.7-30.8) H 07/02/16 11:00 Attending/Attestation - Attestation I have personally seen and examined this patient.: Yes I have fully participated in the care of the patient.: Yes I have reviewed all pertinent clinical information, including history, physical exam and plan: Yes Notes (Text): 07/11/16 08:56 Medical record note made by the resident after discussion with my direction and input after the patient was personally seen and examined by me. I have reviewed the chart and agree that the record accurately reflects by personal performance of the history, physical exam, data review, and medical decision-making, in the course for the patient. I have also personally directed the plan of care.
[2016-07-07 11:23] LABS: BAND 3 % (0-2); NEUTROPHIL 88 % (50.0-70.0)
[2016-07-07 11:24] LABS: ANISOCYTOSIS 1+; EOSINOPHIL 3 % (0.0-3.0); HYPOCHROMIA 2+; PLATELET ESTIMATE NORMAL (NORMAL); POIKILOCYTOSIS SLIGHT; POLYCHROMASIA SLIGHT
[2016-07-07 11:25] LABS: OVALOCYTES SLIGHT
--- NOTE | 2016-07-07 11:41 | CP.CCUPN ---
<Diego Lama - Last Filed: 07/07/16 11:37> CCU Subjective - Physician Review Subjective (Free Text): Pt seen and examined at bedside. Pt with no acute events overnight. Pt is oliguric, producing 200 cc of urine overnight. Pt is POD #4 from cholecystectomy yesterday. Pt doing well overnight, pt states she randomly has sensation in her fingers, but still unable to move right arm. No abdominal pain at this time. Denies CP, SOB, N/V/D, fevers, chills. CCU Objective - Vital Signs / Intake & Output Intake and Output (Last 8hrs): Intake & Output 07/06/16 07/07/16 07/07/16 22:59 06:59 14:59 Intake Total 760 400 Output Total 148 340 Balance 612 60 Weight 275 lb 14.4 oz Intake: IV 110 200 Right Hand 110 200 Oral 650 200 Output: Gastric Amount 40 Right Stomach 40 Drainage 28 Right Abdomen 28 Urine 120 200 Urethral (Briones) 120 200 Stool 100 Emesis 0 Oral Regurgitation 0 Other 0 Other: Voiding Method Indwelling Catheter # Bowel Movements 0 1 - Physical Exam Head: Positive for: Ecchymosis (Along lower right face) Pupils: Positive for: PERRL Extroacular Muscles: Positive for: EOMI Conjunctiva: Positive for: Normal. Negative for: Icteric Respiratory/Chest: Positive for: Clear to Auscultation, Decreased Breath Sounds , Rhonchi (b/l) Cardiovascular: Positive for: Regular Rate and Rhythm, Normal S1, S2. Negative for: Murmurs Abdomen: Positive for: Normal Bowel Sounds. Negative for: Tenderness, Distention, Guarding Upper Extremity: Positive for: NORMAL PULSES, Other (Unable to move right arm. No sensation in right arm. Ecchymoses on right shoulder. Exam unchanged from previous day.). Negative for: Tenderness Lower Extremity: Positive for: Normal Inspection, Edema (trace). Negative for: CALF TENDERNESS Neurological: Positive for: Speech Normal, Other (No sensation in right upper extremity to light touch or deep stimulation.). Negative for: Motor Func Grossly Intact, Normal Sensory Function Skin: Positive for: Warm, Dry Psychiatric: Positive for: Alert, Oriented x 3, Normal Insight, Normal Concentration - Medications Active Medications: Active Medications Generic Name Dose Route Start Last Admin Trade Name Freq PRN Reason Stop Dose Admin Albuterol Sulfate 2.5 mg 07/04/16 02:00 07/07/16 07:32 Albuterol 0.083% Inhal Lorri (2.5 Mg/3 Ml) Ud IH 2.5 mg [id number] IAIN Administration Albuterol Sulfate 2.5 mg 07/03/16 21:13 Albuterol 0.083% Inhal Lorri (2.5 Mg/3 Ml) Ud IH Q3 PRN SOB Benzocaine/Menthol 1 adin 07/06/16 10:51 Cepacol Sore Throat MT Q2H PRN Sore Throat Ferrous Sulfate 324 mg 07/04/16 18:30 07/07/16 09:55 Feosol PO 324 mg BID IAIN Administration Guaifenesin/Dextromethorphan 5 ml 07/05/16 22:21 Robitussin Dm PO Q4H PRN Cough Heparin Sodium (Porcine) 5,000 units 07/04/16 10:00 07/07/16 09:55 Heparin SC 5,000 units Q12 IAIN Administration Protocol Meropenem 250 mg/ Sodium 100 mls @ 100 mls/hr 07/04/16 09:45 07/07/16 09:59 Chloride IVPB 07/13/16 09:46 100 mls/hr Q12H AIIN Administration Protocol Sodium Chloride 1,000 mls @ 75 mls/hr 07/07/16 11:30 Sodium Chloride 0.9% IV .[id number] [facility] Insulin Human Lispro 0 units 06/30/16 11:30 07/07/16 08:19 Humalog Low SC Not Given ACHS [facility] Protocol Levothyroxine Sodium 75 mcg 07/01/16 07:30 07/07/16 08:20 Synthroid PO 75 mcg ACB IAIN Administration Metoclopramide HCl 10 mg 07/03/16 09:46 Reglan IV ONCE PRN Nausea/Vomiting Nystatin 0 gm 06/30/16 05:00 07/07/16 10:07 Nystop Topical Powder TOP 1 applic BID IAIN Administration Ondansetron HCl 4 mg 06/29/16 22:58 06/30/16 12:15 Zofran Inj IVP 4 mg Q6H PRN Administration Nausea/Vomiting Ondansetron HCl 4 mg 07/03/16 09:46 Zofran Inj IVP ONCE PRN Nausea/Vomiting Pantoprazole Sodium 40 mg 06/30/16 10:00 07/07/16 09:54 Protonix Inj IVP 40 mg DAILY IAIN Administration - Patient Studies Lab Studies: Lab Studies 07/07/16 07/07/16 07/06/16 Range/Units 09:45 09:45 21:54 WBC 23.0 H (4.5-11.0) 10^3/ul RBC 2.44 L (3.5-6.1) 10^6/uL Hgb 7.8 L (12.0-16.0) gm/dL Hct 22.4 L (36.0-48.0) % MCV 91.8 (80.0-105.0) fL MCH 32.0 (25.0-35.0) pg MCHC 34.8 (31.0-37.0) g/dl RDW 15.3 H (11.5-14.5) % Plt Count 346 (120.0-450.0) 10^3/uL MPV 9.7 (7.0-11.0) fl Neutrophils % (Manual) 88 H (50.0-70.0) % Band Neutrophils % 3 H (0-2) % Lymphocytes % (Manual) 5 L (22.0-35.0) % Monocytes % (Manual) 1 (1.0-6.0) % Eosinophils % (Manual) 3 (0.0-3.0) % Platelet Evaluation Normal (NORMAL) Polychromasia Slight Hypochromasia 2+ Poikilocytosis (manual Slight Anisocytosis (manual) 1+ Ovalocytes Slight Sodium 138 (132-148) mmol/L Potassium 4.2 (3.6-5.0) mmol/L Chloride 104 (98-107) mmol/L Carbon Dioxide 23 (21-33) mmol/L Anion Gap 15 (10-20) BUN 83 H (7-21) mg/dL Creatinine 3.6 H (0.5-1.4) mg/dL Est GFR ( Amer) 15 Est GFR (Non-Af Amer) 12 POC Glucose (mg/dL) 131 H (65-110) mg/dL Random Glucose 142 H (70-110) mg/dL Calcium 8.5 (8.4-10.5) mg/dL Total Bilirubin 1.0 (0.2-1.3) mg/dL AST 133 H (15-39) U/L ALT 94 H (7-56) U/L Alkaline Phosphatase 113 (38-133) U/L Total Creatine Kinase 886 H (35-230) U/L CK-MB (CK-2) 2.8 (0.0-3.6) ng/mL CK-MB (CK-2) % Cancelled Total Protein 6.0 (5.8-8.3) g/dL Albumin 2.7 L (3.0-4.8) g/dL Globulin 3.2 gm/dL Albumin/Globulin Ratio 0.8 L (1.1-1.8) Procalcitonin (0.19-0.49) NG/ML Urine Color (YELLOW) Urine Appearance (CLEAR) Urine pH (4.7-8.0) Ur Specific [place] (1.005-1.035) Urine Protein (<30 mg/dL) mg/dL Urine Glucose (UA) (NEGATIVE) mg/dL Urine Ketones (NEGATIVE) mg/dL Urine Blood (NEGATIVE) Urine Nitrate (NEGATIVE) Urine Bilirubin (NEGATIVE) Urine Urobilinogen (<1 E.U./dL) E.U./dL Ur Leukocyte Esterase (NEGATIVE) Kareen/uL Urine RBC (0-2) /hpf Urine WBC (0-6) /hpf Ur Epithelial Cells (0-5) /hpf Amorphous Sediment Urine Bacteria (NEG) Coarse Granular Casts (0-2) /hpf 07/06/16 07/06/16 07/06/16 Range/Units 16:25 16:25 15:00 WBC (4.5-11.0) 10^3/ul RBC (3.5-6.1) 10^6/uL Hgb (12.0-16.0) gm/dL Hct (36.0-48.0) % MCV (80.0-105.0) fL MCH (25.0-35.0) pg MCHC (31.0-37.0) g/dl RDW (11.5-14.5) % Plt Count (120.0-450.0) 10^3/uL MPV (7.0-11.0) fl Neutrophils % (Manual) (50.0-70.0) % Band Neutrophils % (0-2) % Lymphocytes % (Manual) (22.0-35.0) % Monocytes % (Manual) (1.0-6.0) % Eosinophils % (Manual) (0.0-3.0) % Platelet Evaluation (NORMAL) Polychromasia Hypochromasia Poikilocytosis (manual Anisocytosis (manual) Ovalocytes Sodium (132-148) mmol/L Potassium (3.6-5.0) mmol/L Chloride (98-107) mmol/L Carbon Dioxide (21-33) mmol/L Anion Gap (10-20) BUN (7-21) mg/dL Creatinine (0.5-1.4) mg/dL Est GFR ( Amer) Est GFR (Non-Af Amer) POC Glucose (mg/dL) 164 H (65-110) mg/dL Random Glucose (70-110) mg/dL Calcium (8.4-10.5) mg/dL Total Bilirubin (0.2-1.3) mg/dL AST (15-39) U/L ALT (7-56) U/L Alkaline Phosphatase (38-133) U/L Total Creatine Kinase (35-230) U/L CK-MB (CK-2) (0.0-3.6) ng/mL CK-MB (CK-2) % Total Protein (5.8-8.3) g/dL Albumin (3.0-4.8) g/dL Globulin gm/dL Albumin/Globulin Ratio (1.1-1.8) Procalcitonin 6.28 H (0.19-0.49) NG/ML Urine Color Yellow (YELLOW) Urine Appearance Sl cloudy (CLEAR) Urine pH 5.5 (4.7-8.0) Ur Specific [place] 1.025 (1.005-1.035) Urine Protein 30 H (<30 mg/dL) mg/dL Urine Glucose (UA) Negative (NEGATIVE) mg/dL Urine Ketones Negative (NEGATIVE) mg/dL Urine Blood Large H (NEGATIVE) Urine Nitrate Negative (NEGATIVE) Urine Bilirubin Small H (NEGATIVE) Urine Urobilinogen 0.2 (<1 E.U./dL) E.U./dL Ur Leukocyte Esterase Negative (NEGATIVE) Kareen/uL Urine RBC 5 - 10 (0-2) /hpf Urine WBC 15 - 20 (0-6) /hpf Ur Epithelial Cells 4 - 5 (0-5) /hpf Amorphous Sediment Few Urine Bacteria Many (NEG) Coarse Granular Casts Mod H (0-2) /hpf 07/06/16 Range/Units 11:00 WBC (4.5-11.0) 10^3/ul RBC (3.5-6.1) 10^6/uL Hgb (12.0-16.0) gm/dL Hct (36.0-48.0) % MCV (80.0-105.0) fL MCH (25.0-35.0) pg MCHC (31.0-37.0) g/dl RDW (11.5-14.5) % Plt Count (120.0-450.0) 10^3/uL MPV (7.0-11.0) fl Neutrophils % (Manual) (50.0-70.0) % Band Neutrophils % (0-2) % Lymphocytes % (Manual) (22.0-35.0) % Monocytes % (Manual) (1.0-6.0) % Eosinophils % (Manual) (0.0-3.0) % Platelet Evaluation (NORMAL) Polychromasia Hypochromasia Poikilocytosis (manual Anisocytosis (manual) Ovalocytes Sodium (132-148) mmol/L Potassium (3.6-5.0) mmol/L Chloride (98-107) mmol/L Carbon Dioxide (21-33) mmol/L Anion Gap (10-20) BUN (7-21) mg/dL Creatinine (0.5-1.4) mg/dL Est GFR ( Amer) Est GFR (Non-Af Amer) POC Glucose (mg/dL) 195 H (65-110) mg/dL Random Glucose (70-110) mg/dL Calcium (8.4-10.5) mg/dL Total Bilirubin (0.2-1.3) mg/dL AST (15-39) U/L ALT (7-56) U/L Alkaline Phosphatase (38-133) U/L Total Creatine Kinase (35-230) U/L CK-MB (CK-2) (0.0-3.6) ng/mL CK-MB (CK-2) % Total Protein (5.8-8.3) g/dL Albumin (3.0-4.8) g/dL Globulin gm/dL Albumin/Globulin Ratio (1.1-1.8) Procalcitonin (0.19-0.49) NG/ML Urine Color (YELLOW) Urine Appearance (CLEAR) Urine pH (4.7-8.0) Ur Specific [place] (1.005-1.035) Urine Protein (<30 mg/dL) mg/dL Urine Glucose (UA) (NEGATIVE) mg/dL Urine Ketones (NEGATIVE) mg/dL Urine Blood (NEGATIVE) Urine Nitrate (NEGATIVE) Urine Bilirubin (NEGATIVE) Urine Urobilinogen (<1 E.U./dL) E.U./dL Ur Leukocyte Esterase (NEGATIVE) Kareen/uL Urine RBC (0-2) /hpf Urine WBC (0-6) /hpf Ur Epithelial Cells (0-5) /hpf Amorphous Sediment Urine Bacteria (NEG) Coarse Granular Casts (0-2) /hpf Laboratory Results - last 24 hr 07/06/16 07/06/16 07/06/16 11:00 15:00 16:25 WBC RBC Hgb Hct MCV MCH MCHC RDW Plt Count MPV Neutrophils % (Manual) Band Neutrophils % Lymphocytes % (Manual) Monocytes % (Manual) Eosinophils % (Manual) Platelet Evaluation Polychromasia Hypochromasia Poikilocytosis (manual Anisocytosis (manual) Ovalocytes Sodium Potassium Chloride Carbon Dioxide Anion Gap BUN Creatinine Est GFR ( Amer) Est GFR (Non-Af Amer) POC Glucose (mg/dL) 195 H Random Glucose Calcium Total Bilirubin AST ALT Alkaline Phosphatase Total Creatine Kinase CK-MB (CK-2) CK-MB (CK-2) % Total Protein Albumin Globulin Albumin/Globulin Ratio Procalcitonin 6.28 H Urine Color Yellow Urine Appearance Sl cloudy Urine pH 5.5 Ur Specific [place] 1.025 Urine Protein 30 H Urine Glucose (UA) Negative Urine Ketones Negative Urine Blood Large H Urine Nitrate Negative Urine Bilirubin Small H Urine Urobilinogen 0.2 Ur Leukocyte Esterase Negative Urine RBC 5 - 10 Urine WBC 15 - 20 Ur Epithelial Cells 4 - 5 Amorphous Sediment Few Urine Bacteria Many Coarse Granular Casts Mod H 07/06/16 07/06/16 07/07/16 16:25 21:54 09:45 WBC 23.0 H RBC 2.44 L Hgb 7.8 L Hct 22.4 L MCV 91.8 MCH 32.0 MCHC 34.8 RDW 15.3 H Plt Count 346 MPV 9.7 Neutrophils % (Manual) 88 H Band Neutrophils % 3 H Lymphocytes % (Manual) 5 L Monocytes % (Manual) 1 Eosinophils % (Manual) 3 Platelet Evaluation Normal Polychromasia Slight Hypochromasia 2+ Poikilocytosis (manual Slight Anisocytosis (manual) 1+ Ovalocytes Slight Sodium Potassium Chloride Carbon Dioxide Anion Gap BUN Creatinine Est GFR ( Amer) Est GFR (Non-Af Amer) POC Glucose (mg/dL) 164 H 131 H Random Glucose Calcium Total Bilirubin AST ALT Alkaline Phosphatase Total Creatine Kinase CK-MB (CK-2) CK-MB (CK-2) % Total Protein Albumin Globulin Albumin/Globulin Ratio Procalcitonin Urine Color Urine Appearance Urine pH Ur Specific [place] Urine Protein Urine Glucose (UA) Urine Ketones Urine Blood Urine Nitrate Urine Bilirubin Urine Urobilinogen Ur Leukocyte Esterase Urine RBC Urine WBC Ur Epithelial Cells Amorphous Sediment Urine Bacteria Coarse Granular Casts 07/07/16 09:45 WBC RBC Hgb Hct MCV MCH MCHC RDW Plt Count MPV Neutrophils % (Manual) Band Neutrophils % Lymphocytes % (Manual) Monocytes % (Manual) Eosinophils % (Manual) Platelet Evaluation Polychromasia Hypochromasia Poikilocytosis (manual Anisocytosis (manual) Ovalocytes Sodium 138 Potassium 4.2 Chloride 104 Carbon Dioxide 23 Anion Gap 15 BUN 83 H Creatinine 3.6 H Est GFR ( Amer) 15 Est GFR (Non-Af Amer) 12 POC Glucose (mg/dL) Random Glucose 142 H Calcium 8.5 Total Bilirubin 1.0 AST 133 H ALT 94 H Alkaline Phosphatase 113 Total Creatine Kinase 886 H CK-MB (CK-2) 2.8 CK-MB (CK-2) % Cancelled Total Protein 6.0 Albumin 2.7 L Globulin 3.2 Albumin/Globulin Ratio 0.8 L Procalcitonin Urine Color Urine Appearance Urine pH Ur Specific [place] Urine Protein Urine Glucose (UA) Urine Ketones Urine Blood Urine Nitrate Urine Bilirubin Urine Urobilinogen Ur Leukocyte Esterase Urine RBC Urine WBC Ur Epithelial Cells Amorphous Sediment Urine Bacteria Coarse Granular Casts Fingerstick Blood Sugar Results: 136 Critical Care Progress Note - Nutrition Nutrition: Nutrition Category Date Time Status Liquid Diet [DIET] Diets 07/04/16 Lunch Ordered Assessment/Plan - Assessment and Plan (Free Text) Plan: 75 y/o F with PMH of CHF, DM, TIA, and hypothyroidism presents with severe sepsis s/p cholecystectomy secondary to acute cholecystitis in the setting of rhabdomyolysis complicated by acute kidney injury and transaminitis along with right arm paralysis. Pt received dialysis over the weekend and creatinine greatly improved. Pt will be started on IVF today as per nephrology. Transminitis improving at this time, but leukocytosis remains elevated despite abx use. Neuro: AAOx3 Right arm paralysis improving, sensation randomly noted by pt Supportive therapy for right arm, no surgical intervention at this time Cardio: Hemodynamically stable Goal MAP >65 Pulm: Maintain O2 sat >90% NC @ 3L Monitor for respiratory distress GI: Liquit diet, will follow surgery recommendations Transaminitis improving. GI following, Dr. Duncan. Endo: Maintain euglycemia, target glucose between 140-180 ISS Nephro: Creatinine improving Dialysis 2 days ago, will follow nephro on recommendations for further dialysis Oliguric, urine output 200 cc overnight Monitor creatinine and urine output closely Dr. Ron following Maintain euvolemia Heme/ID: Afebrile, leukocytosis elevated stable Continue Merrem Bile cultures show Klebsiella oxytoca and pneumoniae, and proteus mirabilis Maintain normothermia PPX: Protonix Zofran SCDs Seen, reviewed, and discussed with attending Daina, PGY-1 <Keli TO,Paige H - Last Filed: 07/07/16 15:16> CCU Objective - Vital Signs / Intake & Output Intake and Output (Last 8hrs): Intake & Output 07/07/16 07/07/16 07/07/16 06:59 14:59 22:59 Intake Total 400 Output Total 340 Balance 60 Weight 275 lb 14.4 oz Intake: IV 200 Right Hand 200 Oral 200 Output: Gastric Amount 40 Right Stomach 40 Urine 200 Urethral (Briones) 200 Stool 100 Emesis 0 Oral Regurgitation 0 Other 0 Other: # Bowel Movements 1 - Medications Active Medications: Active Medications Generic Name Dose Route Start Last Admin Trade Name Freq PRN Reason Stop Dose Admin Albuterol Sulfate 2.5 mg 07/04/16 02:00 07/07/16 13:22 Albuterol 0.083% Inhal Lorri (2.5 Mg/3 Ml) Ud IH Not Given [id number] IAIN Albuterol Sulfate 2.5 mg 07/03/16 21:13 Albuterol 0.083% Inhal Lorri (2.5 Mg/3 Ml) Ud IH Q3 PRN SOB Benzocaine/Menthol 1 adin 07/06/16 10:51 Cepacol Sore Throat MT Q2H PRN Sore Throat Ferrous Sulfate 324 mg 07/04/16 18:30 07/07/16 09:55 Feosol PO 324 mg BID IAIN Administration Guaifenesin/Dextromethorphan 5 ml 07/05/16 22:21 Robitussin Dm PO Q4H PRN Cough Heparin Sodium (Porcine) 5,000 units 07/04/16 10:00 07/07/16 09:55 Heparin SC 5,000 units Q12 IIAN Administration Protocol Meropenem 250 mg/ Sodium 100 mls @ 100 mls/hr 07/04/16 09:45 07/07/16 09:59 Chloride IVPB 07/13/16 09:46 100 mls/hr Q12H IAIN Administration Protocol Sodium Chloride 1,000 mls @ 75 mls/hr 07/07/16 11:30 07/07/16 12:08 Sodium Chloride 0.9% IV 75 mls/hr .[id number] IAIN Administration Insulin Human Lispro 0 units 06/30/16 11:30 07/07/16 12:08 Humalog Low SC 1 units ACHS IAIN Administration Protocol Levothyroxine Sodium 75 mcg 07/01/16 07:30 07/07/16 08:20 Synthroid PO 75 mcg ACB IAIN Administration Metoclopramide HCl 10 mg 07/03/16 09:46 Reglan IV ONCE PRN Nausea/Vomiting Nystatin 0 gm 06/30/16 05:00 07/07/16 10:07 Nystop Topical Powder TOP 1 applic BID IAIN Administration Ondansetron HCl 4 mg 06/29/16 22:58 06/30/16 12:15 Zofran Inj IVP 4 mg Q6H PRN Administration Nausea/Vomiting Ondansetron HCl 4 mg 07/03/16 09:46 Zofran Inj IVP ONCE PRN Nausea/Vomiting Pantoprazole Sodium 40 mg 06/30/16 10:00 07/07/16 09:54 Protonix Inj IVP 40 mg DAILY IAIN Administration - Patient Studies Lab Studies: Microbiology Studies 07/06/16 15:00 Urine Culture - Final Urine No Growth (<1,000 CFU/ML) Lab Studies 07/07/16 07/07/16 07/06/16 Range/Units 09:45 09:45 21:54 WBC 23.0 H (4.5-11.0) 10^3/ul RBC 2.44 L (3.5-6.1) 10^6/uL Hgb 7.8 L (12.0-16.0) gm/dL Hct 22.4 L (36.0-48.0) % MCV 91.8 (80.0-105.0) fL MCH 32.0 (25.0-35.0) pg MCHC 34.8 (31.0-37.0) g/dl RDW 15.3 H (11.5-14.5) % Plt Count 346 (120.0-450.0) 10^3/uL MPV 9.7 (7.0-11.0) fl Neutrophils % (Manual) 88 H (50.0-70.0) % Band Neutrophils % 3 H (0-2) % Lymphocytes % (Manual) 5 L (22.0-35.0) % Monocytes % (Manual) 1 (1.0-6.0) % Eosinophils % (Manual) 3 (0.0-3.0) % Platelet Evaluation Normal (NORMAL) Polychromasia Slight Hypochromasia 2+ Poikilocytosis (manual Slight Anisocytosis (manual) 1+ Ovalocytes Slight Sodium 138 (132-148) mmol/L Potassium 4.2 (3.6-5.0) mmol/L Chloride 104 (98-107) mmol/L Carbon Dioxide 23 (21-33) mmol/L Anion Gap 15 (10-20) BUN 83 H (7-21) mg/dL Creatinine 3.6 H (0.5-1.4) mg/dL Est GFR ( Amer) 15 Est GFR (Non-Af Amer) 12 POC Glucose (mg/dL) 131 H (65-110) mg/dL Random Glucose 142 H (70-110) mg/dL Calcium 8.5 (8.4-10.5) mg/dL Total Bilirubin 1.0 (0.2-1.3) mg/dL AST 133 H (15-39) U/L ALT 94 H (7-56) U/L Alkaline Phosphatase 113 (38-133) U/L Total Creatine Kinase 886 H (35-230) U/L CK-MB (CK-2) 2.8 (0.0-3.6) ng/mL CK-MB (CK-2) % Cancelled Total Protein 6.0 (5.8-8.3) g/dL Albumin 2.7 L (3.0-4.8) g/dL Globulin 3.2 gm/dL Albumin/Globulin Ratio 0.8 L (1.1-1.8) Procalcitonin (0.19-0.49) NG/ML Urine Color (YELLOW) Urine Appearance (CLEAR) Urine pH (4.7-8.0) Ur Specific [place] (1.005-1.035) Urine Protein (<30 mg/dL) mg/dL Urine Glucose (UA) (NEGATIVE) mg/dL Urine Ketones (NEGATIVE) mg/dL Urine Blood (NEGATIVE) Urine Nitrate (NEGATIVE) Urine Bilirubin (NEGATIVE) Urine Urobilinogen (<1 E.U./dL) E.U./dL Ur Leukocyte Esterase (NEGATIVE) Kareen/uL Urine RBC (0-2) /hpf Urine WBC (0-6) /hpf Ur Epithelial Cells (0-5) /hpf Amorphous Sediment Urine Bacteria (NEG) Coarse Granular Casts (0-2) /hpf 07/06/16 07/06/16 07/06/16 Range/Units 16:25 16:25 15:00 WBC (4.5-11.0) 10^3/ul RBC (3.5-6.1) 10^6/uL Hgb (12.0-16.0) gm/dL Hct (36.0-48.0) % MCV (80.0-105.0) fL MCH (25.0-35.0) pg MCHC (31.0-37.0) g/dl RDW (11.5-14.5) % Plt Count (120.0-450.0) 10^3/uL MPV (7.0-11.0) fl Neutrophils % (Manual) (50.0-70.0) % Band Neutrophils % (0-2) % Lymphocytes % (Manual) (22.0-35.0) % Monocytes % (Manual) (1.0-6.0) % Eosinophils % (Manual) (0.0-3.0) % Platelet Evaluation (NORMAL) Polychromasia Hypochromasia Poikilocytosis (manual Anisocytosis (manual) Ovalocytes Sodium (132-148) mmol/L Potassium (3.6-5.0) mmol/L Chloride (98-107) mmol/L Carbon Dioxide (21-33) mmol/L Anion Gap (10-20) BUN (7-21) mg/dL Creatinine (0.5-1.4) mg/dL Est GFR ( Amer) Est GFR (Non-Af Amer) POC Glucose (mg/dL) 164 H (65-110) mg/dL Random Glucose (70-110) mg/dL Calcium (8.4-10.5) mg/dL Total Bilirubin (0.2-1.3) mg/dL AST (15-39) U/L ALT (7-56) U/L Alkaline Phosphatase (38-133) U/L Total Creatine Kinase (35-230) U/L CK-MB (CK-2) (0.0-3.6) ng/mL CK-MB (CK-2) % Total Protein (5.8-8.3) g/dL Albumin (3.0-4.8) g/dL Globulin gm/dL Albumin/Globulin Ratio (1.1-1.8) Procalcitonin 6.28 H (0.19-0.49) NG/ML Urine Color Yellow (YELLOW) Urine Appearance Sl cloudy (CLEAR) Urine pH 5.5 (4.7-8.0) Ur Specific [place] 1.025 (1.005-1.035) Urine Protein 30 H (<30 mg/dL) mg/dL Urine Glucose (UA) Negative (NEGATIVE) mg/dL Urine Ketones Negative (NEGATIVE) mg/dL Urine Blood Large H (NEGATIVE) Urine Nitrate Negative (NEGATIVE) Urine Bilirubin Small H (NEGATIVE) Urine Urobilinogen 0.2 (<1 E.U./dL) E.U./dL Ur Leukocyte Esterase Negative (NEGATIVE) Kareen/uL Urine RBC 5 - 10 (0-2) /hpf Urine WBC 15 - 20 (0-6) /hpf Ur Epithelial Cells 4 - 5 (0-5) /hpf Amorphous Sediment Few Urine Bacteria Many (NEG) Coarse Granular Casts Mod H (0-2) /hpf 04/30/17 Range/Units 11:00 WBC (4.5-11.0) 10^3/ul RBC (3.5-6.1) 10^6/uL Hgb (12.0-16.0) gm/dL Hct (36.0-48.0) % MCV (80.0-105.0) fL MCH (25.0-35.0) pg MCHC (31.0-37.0) g/dl RDW (11.5-14.5) % Plt Count (120.0-450.0) 10^3/uL MPV (7.0-11.0) fl Neutrophils % (Manual) (50.0-70.0) % Band Neutrophils % (0-2) % Lymphocytes % (Manual) (22.0-35.0) % Monocytes % (Manual) (1.0-6.0) % Eosinophils % (Manual) (0.0-3.0) % Platelet Evaluation (NORMAL) Polychromasia Hypochromasia Poikilocytosis (manual Anisocytosis (manual) Ovalocytes Sodium (132-148) mmol/L Potassium (3.6-5.0) mmol/L Chloride (98-107) mmol/L Carbon Dioxide (21-33) mmol/L Anion Gap (10-20) BUN (7-21) mg/dL Creatinine (0.5-1.4) mg/dL Est GFR ( Amer) Est GFR (Non-Af Amer) POC Glucose (mg/dL) 195 H (65-110) mg/dL Random Glucose (70-110) mg/dL Calcium (8.4-10.5) mg/dL Total Bilirubin (0.2-1.3) mg/dL AST (15-39) U/L ALT (7-56) U/L Alkaline Phosphatase (38-133) U/L Total Creatine Kinase (35-230) U/L CK-MB (CK-2) (0.0-3.6) ng/mL CK-MB (CK-2) % Total Protein (5.8-8.3) g/dL Albumin (3.0-4.8) g/dL Globulin gm/dL Albumin/Globulin Ratio (1.1-1.8) Procalcitonin (0.19-0.49) NG/ML Urine Color (YELLOW) Urine Appearance (CLEAR) Urine pH (4.7-8.0) Ur Specific [place] (1.005-1.035) Urine Protein (<30 mg/dL) mg/dL Urine Glucose (UA) (NEGATIVE) mg/dL Urine Ketones (NEGATIVE) mg/dL Urine Blood (NEGATIVE) Urine Nitrate (NEGATIVE) Urine Bilirubin (NEGATIVE) Urine Urobilinogen (<1 E.U./dL) E.U./dL Ur Leukocyte Esterase (NEGATIVE) [place]/uL Urine RBC (0-2) /hpf Urine WBC (0-6) /hpf Ur Epithelial Cells (0-5) /hpf Amorphous Sediment Urine Bacteria (NEG) Coarse Granular Casts (0-2) /hpf Laboratory Results - last 24 hr 07/06/16 07/06/16 07/06/16 11:00 15:00 16:25 WBC RBC Hgb Hct MCV MCH MCHC RDW Plt Count MPV Neutrophils % (Manual) Band Neutrophils % Lymphocytes % (Manual) Monocytes % (Manual) Eosinophils % (Manual) Platelet Evaluation Polychromasia Hypochromasia Poikilocytosis (manual Anisocytosis (manual) Ovalocytes Sodium Potassium Chloride Carbon Dioxide Anion Gap BUN Creatinine Est GFR ( Amer) Est GFR (Non-Af Amer) POC Glucose (mg/dL) 195 H Random Glucose Calcium Total Bilirubin AST ALT Alkaline Phosphatase Total Creatine Kinase CK-MB (CK-2) CK-MB (CK-2) % Total Protein Albumin Globulin Albumin/Globulin Ratio Procalcitonin 6.28 H Urine Color Yellow Urine Appearance Sl cloudy Urine pH 5.5 Ur Specific [place] 1.025 Urine Protein 30 H Urine Glucose (UA) Negative Urine Ketones Negative Urine Blood Large H Urine Nitrate Negative Urine Bilirubin Small H Urine Urobilinogen 0.2 Ur Leukocyte Esterase Negative Urine RBC 5 - 10 Urine WBC 15 - 20 Ur Epithelial Cells 4 - 5 Amorphous Sediment Few Urine Bacteria Many Coarse Granular Casts Mod H 07/06/16 07/06/16 07/07/16 16:25 21:54 09:45 WBC 23.0 H RBC 2.44 L Hgb 7.8 L Hct 22.4 L MCV 91.8 MCH 32.0 MCHC 34.8 RDW 15.3 H Plt Count 346 MPV 9.7 Neutrophils % (Manual) 88 H Band Neutrophils % 3 H Lymphocytes % (Manual) 5 L Monocytes % (Manual) 1 Eosinophils % (Manual) 3 Platelet Evaluation Normal Polychromasia Slight Hypochromasia 2+ Poikilocytosis (manual Slight Anisocytosis (manual) 1+ Ovalocytes Slight Sodium Potassium Chloride Carbon Dioxide Anion Gap BUN Creatinine Est GFR ( Amer) Est GFR (Non-Af Amer) POC Glucose (mg/dL) 164 H 131 H Random Glucose Calcium Total Bilirubin AST ALT Alkaline Phosphatase Total Creatine Kinase CK-MB (CK-2) CK-MB (CK-2) % Total Protein Albumin Globulin Albumin/Globulin Ratio Procalcitonin Urine Color Urine Appearance Urine pH Ur Specific [place] Urine Protein Urine Glucose (UA) Urine Ketones Urine Blood Urine Nitrate Urine Bilirubin Urine Urobilinogen Ur Leukocyte Esterase Urine RBC Urine WBC Ur Epithelial Cells Amorphous Sediment Urine Bacteria Coarse Granular Casts 07/07/16 09:45 WBC RBC Hgb Hct MCV MCH MCHC RDW Plt Count MPV Neutrophils % (Manual) Band Neutrophils % Lymphocytes % (Manual) Monocytes % (Manual) Eosinophils % (Manual) Platelet Evaluation Polychromasia Hypochromasia Poikilocytosis (manual Anisocytosis (manual) Ovalocytes Sodium 138 Potassium 4.2 Chloride 104 Carbon Dioxide 23 Anion Gap 15 BUN 83 H Creatinine 3.6 H Est GFR ( Amer) 15 Est GFR (Non-Af Amer) 12 POC Glucose (mg/dL) Random Glucose 142 H Calcium 8.5 Total Bilirubin 1.0 AST 133 H ALT 94 H Alkaline Phosphatase 113 Total Creatine Kinase 886 H CK-MB (CK-2) 2.8 CK-MB (CK-2) % Cancelled Total Protein 6.0 Albumin 2.7 L Globulin 3.2 Albumin/Globulin Ratio 0.8 L Procalcitonin Urine Color Urine Appearance Urine pH Ur Specific [place] Urine Protein Urine Glucose (UA) Urine Ketones Urine Blood Urine Nitrate Urine Bilirubin Urine Urobilinogen Ur Leukocyte Esterase Urine RBC Urine WBC Ur Epithelial Cells Amorphous Sediment Urine Bacteria Coarse Granular Casts Critical Care Progress Note - Nutrition Nutrition: Nutrition Category Date Time Status Liquid Diet [DIET] Diets 07/04/16 Lunch Ordered Attending/Attestation - Attestation I have personally seen and examined this patient.: Yes I have fully participated in the care of the patient.: Yes I have reviewed all pertinent clinical information: Yes Notes (Text): 07/07/16 15:12 75 y/o F w/ Resolving DIMITRY on CKD and Cholycystitis On Hd x2, continue unless urine output increases Nephrology following closely for the need for care home HD and need for Catheter. Resolving infection from GB Post open GB removal. On empiric abx, cx positive from surgical specimen healing well, no recent fevers. R Arm BP injury s/p fall Minimal improvement Will need evaluation from Surgical team( NSG, Plastics) May need outpatient work up. Non contrast CT? DVT p Heparin sq tid PT/OT Out of bed to chair. cc time 45 min tx to MEdical floor , pcp aware
[2016-07-07] MEDS: Sodium Chloride 0.9% 1,000 ML IV SCH (12:08)
--- NOTE | 2016-07-07 12:48 | PN ---
DATE: 07/07/2016 A 75-year-old female with past medical history of hypertension, diabetes, hypothyroidism, cholelithia sis and lower extremity DVT. Admitted with severe rhabdomyolysis, sepsis and acute renal failu re, for which nephrology is following. The patient today reporting no shortness of breath. Tolerated liquid diet well. Still, no bowel mov ement and not passing gas either. PHYSICAL EXAMINATION: VITAL SIGNS: This morning, blood pressure 134/60, heart rate 99, respirations 16, O2 sat 96%. GENERAL: No distress, speaking coherently, in full sentences. HEENT: Moist mucous membranes. Nonicteric. CHEST: Clear to auscultation bilaterally. No rales, no rhonchi, no wheezes. CARDIOVASCULAR: S1, S2 normal, no murmurs, no rubs, no gallops. GASTROINTESTINAL: Abdomen soft, mildly distended, mildly tender. GENITOURINARY: Briones in place with 150 mL of urine over the past approximately 4 hours. EXTREMITIES: Moderately edematous legs. Normal capillary refill. NEUROLOGIC: No sensation in right arm. PSYCHIATRIC: Normal affect, normal mood. SKIN: Warm. No cyanosis. LABORATORIES: This morning, WBC 23.0, hemoglobin 7.8, hematocrit 22.4, platelets 346. Chemistry: S odium 138, potassium 4.2, chloride 104, bicarbonate 23, BUN 83, creatinine 3.6, glucose 142, calcium 8.5, albumin 2.7. UA from yesterday: Specific gravity 1.025, large blood, protein 30 mg/dL, 15-20 W BCs per high power field, many bacteremia, moderate coarse granular casts. ASSESSMENT: 1. Acute renal failure, acute kidney injury on chronic kidney disease stage III. Oliguric renal ernestina lure due to acute tubular necrosis from severe rhabdomyolysis appears to be improving with decrease i n serum creatinine since yesterday, status post 1 session of hemodialysis 2 days ago done preemptivel y. Since serum creatinine is improving and patient remains oliguric, this raises the question of whe ther patient is intravascularly volume depleted and/or has obstruction despite having Briones in place. Otherwise stable electrolyte status, stable volume and respiratory status. No indication for hemod ialysis. Start IV fluids with normal saline at 75 mL per hour. Check bladder scan. Avoid hypertrophic agents. 2. Rhabdomyolysis, secondary to right arm muscle injury. Creatine kinase level continues to trend d ownward. Avoid calcium replenishment unless patient is symptomatic or has EKG changes as calcium sergey l be released from affected muscle and giving IV calcium will possibly cause calcium phosphate comple xes that can deposit in vascular and soft tissues. 3. Sepsis, now status post cholecystectomy. Still with marked leukocytosis, on meropenem 1 gram q. 12 hours. Renal function is improving slightly, however, still with advanced renal failure and so sh ould considered q. 24-hour dosing of antibiotics. Would still dose antibiotics for creatinine cleara nce less than 20. 4. Anemia. Hemoglobin continues to trend down. Iron deficient. Started on IV iron. Would continu e to avoid IV iron in the setting of sepsis. Need to rule out upper gastrointestinal bleed, especial ly as BUN is increasing despite improving renal function. Check stool for occult blood (the patient still has not had bowel movement yet). Timmy Ron MD cc: [id number] TT: 07/07/2016 12:47:31 Confirmation # [id number] Dictation # [id number] en
--- NOTE | 2016-07-07 12:58 | PN ---
DATE: 07/06/2016 This patient was seen and evaluated earlier today. The patient did have dialysis yesterday. On liqu id diet. PHYSICAL EXAMINATION: VITAL SIGNS: Temperature is 98.4, blood pressure ____, blood pressure is 101/48, heart rate 106, res pirations 18, O2 saturation 96. HEENT: Atraumatic. Anicteric. NECK: Supple. HEART: S1, S2 heard. LUNGS: Bilateral air entry present. ABDOMEN: Soft. ____. Surgical incision present. EXTREMITIES: Bilateral edema is present. NEUROLOGIC: Alert, oriented. LABORATORY DATA: Hemoglobin 8.1, hematocrit 23.7, WBC still elevated at 24,000, platelets are 356. LFT shows AST 139, ALT 111, alkaline phosphatase 101, remains normal. BUN 68, creatinine 4.0. IMPRESSION: This 75-year-old patient with status post open cholecystectomy for acute gangrenous gall bladder has acute kidney injury on the top of chronic kidney disease, status post dialysis yesterday. The patient's white cell count still remains elevated. Blood culture revealed klebsiella. Continu e with the antibiotics as per ID. The patient's LFTs remain normal. The patient has a history of st atus post ERCP and removal of common bile duct stones in the past. Her last MRCP was negative for an y common bile duct stone. ____. The patient had rhabdomyolysis at the time of admission, slowly imp roving CK, status post dialysis yesterday. Will continue to closely follow up her care. Thank you very much for allowing us to participate in the care of the patient. Kavon Duncan MD cc: [id number] TT: 07/07/2016 08:49:53 Confirmation # [id number] Dictation # [id number] maribell
--- NOTE | 2016-07-07 13:01 | PN ---
DATE: 07/07/2016 Seen and examined at the bedside earlier this morning. The patient is awake and alert. Denies any n ausea, vomiting, or abdominal pain. Still reports no sensation in right arm. The patient has been s tarted on liquid diet. The patient had dialysis treatment x 1 and reports still to have poor urine o utput. The patient does not complain of any abdominal discomfort. VITAL SIGNS: Temperature is 98.4, blood pressure is 134/60, pulse 99, respirations 22, 96% on room a ir. LABORATORIES: WBC 23.0, H and H is 7.8 and 22.4, platelets of 346. Sodium 138, K 4.2, BUN 83, creat inine is . Total bilirubin is 1.0, AST 133, ALT 94, alkaline phosphatase is 113. Total creatin e kinase is 886. ALT, AST is slowly improving as well as total creatine kinase. The patient had a chest x-ray this morning, which shows mild to moderate cardiomegaly with mild vascu lar congestion showing slight improvement. PHYSICAL EXAMINATION: HEENT: Sclera is anicteric. NECK: Supple. CARDIAC: S1, S2. LUNG SOUNDS: With decreased breath sounds, but clear. Decreased breath sounds with positive rhonchi , no wheezing. ABDOMEN: With bowel sounds, soft. It was not tender. Her CHRISTIANO drain with a small amount of serosangu ineous drain and her ilir are open to air. It is dry and intact. No drainage or erythema noted. EXTREMITIES: Positive for edema lower extremities. Right arm still appears edematous. No sensation . NEUROLOGIC: Awake, alert, and oriented. ASSESSMENT: Sepsis, acute cholecystitis, status post open cholecystectomy, acute renal failure, righ t arm paralysis, rhabdomyolysis, improving transaminitis, status post fall, history of diabetes lorrainei tuaida. PLAN: Continue to trend LFTs, is on IV antibiotics, meropenem. Continue gastrointestinal prophylaxi s. The patient is on deep venous thrombosis prophylaxis with heparin. Anemia, on iron supplements. As per ICU medical team, renal, ID and surgical team. The patient was seen and case discussed with Dr. Duncan. Sweetie BUNN cc: [id number] TT: 07/07/2016 12:54:53 Confirmation # [id number] Dictation # [id number] en
[2016-07-07] MEDS ORDERED: Barium Sulfate Susp 2.1% w/v, 2.0% w/w 450 mL Bottle PO ONE (15:16)
--- NOTE | 2016-07-07 23:03 | CT ---
EXAM: CT Abdomen and Pelvis Without Intravenous Contrast CLINICAL HISTORY: 75 years old, female; Condition or disease; Abscess; Abscess location: Abdomnal; Other: Abd bcess; Additional info: R/O intraabdominal abscess TECHNIQUE: Axial computed tomography images of the abdomen and pelvis without intravenous contrast. This CT exam was performed using one or more of the following dose reduction techniques: automated exposure control, adjustment of the mA and/or kV according to patient size, and/or use of iterative reconstruction technique. Coronal and sagittal reformatted images were created and reviewed. COMPARISON: No relevant prior studies available. Findings: This examination is limited, as the left lateral abdomen is not included in the submitted images, secondary to patient habitus ABDOMEN: Liver: Persistent pneumobilia, specifically within the left hepatic lobe. Gallbladder and bile ducts: Interval cholecystectomy with a drainage catheter in the gallbladder fossa. Expected perioperative fluid within the gallbladder fossa. Pancreas: Limited evaluation secondary to the lack of intravenous contrast. Spleen: No acute findings. Adrenals: No acute findings. Kidneys and ureters: No obstructing stones. No hydronephrosis. Persistent bilateral simple and complex cysts, unchanged from prior examination. PELVIS: Bladder: The bladder is decompressed, with Briones catheter, limiting its evaluation. Reproductive.: The uterus is surgically absent. The and Appendix: The appendix is of normal-caliber (series 2, image 169) ABDOMEN and PELVIS: Stomach and bowel: No acute findings. Oral contrast progresses to the colon, without obstruction. A small fat containing hernia is identified within the umbilicus Peritoneum: Expected perioperative findings, as above. Lymph nodes: Limited evaluation without intravenous contrast. Vasculature: No aortic aneurysm. Calcified atherosclerotic disease. Bones: No acute fracture. IMPRESSION: Expected perioperative findings following cholecystectomy, as detailed above. Persistent pneumobilia within the left hepatic lobe. Persistent simple and complex renal cysts, which may be further evaluated with dedicated ultrasound, limited patient is clinically able. No discrete intra-abdominal fluid collection, as detailed above. EXAM: CT Chest Without Intravenous Contrast CLINICAL HISTORY: 75 years old, female; Condition or disease; Abscess; Abscess location: Abdomnal; Other: Abd bcess; Additional info: R/O intraabdominal abscess TECHNIQUE: Axial computed tomography images of the chest without intravenous contrast. This CT exam was performed using one or more of the following dose reduction techniques: automated exposure control, adjustment of the mA and/or kV according to patient size, and/or use of iterative reconstruction technique. Coronal and sagittal reformatted images were created and reviewed. Examination is markedly limited secondary to streak artifact from the patient's arms overlying the chest. As COMPARISON: None FINDINGS: Lungs: Evaluation of the pulmonary parenchyma is markedly limited secondary to motion artifact. Interstitial and peribronchial thickening is identified with bibasilar nodularity. Right basilar and middle lobe consolidation is suspected. Pleural spaces: As above. Heart: The heart is enlarged, with a small pericardial effusion. Vasculature: No aortic aneurysm. Calcified atherosclerotic disease. Lymph nodes: Bilateral axillary lymph nodes as well as scattered hilar and mediastinal lymph nodes, none pathologically enlarged. Bones: No acute fracture. Moderate anasarca is now identified, an interval change from previous examination. IMPRESSION: Interstitial and peribronchial thickening with right basilar and middle lobe consolidation. Cardiomegaly, with a small pericardial effusion. Moderate anasarca, an interval change.
--- NOTE | 2016-07-07 23:16 | PN ---
DATE: 07/07/2016 ADDENDUM This is an addendum to the GI progress report dictated by Sweetie Reece NP. The patient was seen and evaluated earlier today. The patient was sitting up in the chair. Abdomen soft. There is some discomfort in the surgical site. The concern is about elevated white cell count. Discussed with Dr. Bnaks and discussed about CT of the abdomen and pelvis and chest with p.o. contrast. Continue the antibiotics as per ID. We will continue to closely follow up care. Thank you very much for allowing us to participate in the care of the patient. Kavon Duncan MD cc: [id number] TT: 07/07/2016 23:16:28 Confirmation # [id number] Dictation # [id number] ln MTDD
[2016-07-08] MEDS: Albuterol 0.083% Inhal Sol (2.5 mg/3 mL) UD IH SCH ×4 (02:34→20:21)
[2016-07-08] MEDS: Albuterol 0.083% Inhal Sol (2.5 mg/3 mL) UD IH PRN ×2 (06:14→23:30)
[2016-07-08] MEDS: Levothyroxine 75 MCG TAB PO SCH (07:05)
--- NOTE | 2016-07-08 07:45 | CP.PCM.PN ---
<Luis Conde - Last Filed: 07/08/16 16:15> Subjective - Date & Time of Evaluation Date of Evaluation: 07/08/16 Time of Evaluation: 07:42 - Subjective Subjective: Medicine progress note - Luis Conde PGY1 Patient seen and examined at bedside this morning. No acute overnight events or new complaints. Patient appears clinically worse this morning and has some difficulty breathing. Duoneb ordered. Patient is still oliguric and her right upper extremity remains unchanged. CT chest/abd/pelvis from yesterday evening reviewed. Will discuss with GI and ID this morning further recommendations/ treatment. Prognosis remains guarded. Will continue to follow this complicated patient closely. Objective - Vital Signs/Intake and Output Vital Signs (last 24 hours): Temp Pulse Resp BP Pulse Ox 98.4 F 101 H 22 113/51 L 96 07/07/16 00:00 07/07/16 22:00 07/07/16 22:00 07/07/16 22:00 07/07/16 22:00 Intake and Output: 07/08/16 07/08/16 06:59 18:59 Intake Total 1695 Output Total 720 Balance 975 - Medications Medications: Current Medications Albuterol Sulfate (Albuterol 0.083% Inhal Lorri (2.5 Mg/3 Ml) Ud) 2.5 mg IH [id number] [facility] Last Admin: 07/08/16 07:33 Dose: 2.5 mg Albuterol Sulfate (Albuterol 0.083% Inhal Lorri (2.5 Mg/3 Ml) Ud) 2.5 mg IH Q3 PRN PRN Reason: SOB Last Admin: 07/08/16 06:14 Dose: 2.5 mg Benzocaine/Menthol (Cepacol Sore Throat) 1 adin MT Q2H PRN PRN Reason: Sore Throat Ferrous Sulfate (Feosol) 324 mg PO BID [facility] Last Admin: 07/07/16 17:25 Dose: 324 mg Guaifenesin/Dextromethorphan (Robitussin Dm) 5 ml PO Q4H PRN PRN Reason: Cough Heparin Sodium (Porcine) (Heparin) 5,000 units SC Q12 AIIN PRN Reason: Protocol Last Admin: 07/07/16 22:21 Dose: 5,000 units Meropenem 250 mg/ Sodium (Chloride) 100 mls @ 100 mls/hr IVPB Q12H [facility] PRN Reason: Protocol Stop: 07/13/16 09:46 Last Admin: 07/07/16 22:21 Dose: 100 mls/hr Sodium Chloride (Sodium Chloride 0.9%) 1,000 mls @ 75 mls/hr IV .[id number] [facility] Last Admin: 07/07/16 12:08 Dose: 75 mls/hr Insulin Human Lispro (Humalog Low) 0 units SC ACHS [facility] PRN Reason: Protocol Last Admin: 07/07/16 22:21 Dose: Not Given Levothyroxine Sodium (Synthroid) 75 mcg PO 0630 [facility] Last Admin: 07/08/16 07:05 Dose: 75 mcg Metoclopramide HCl (Reglan) 10 mg IV ONCE PRN PRN Reason: Nausea/Vomiting Nystatin (Nystop Topical Powder) 0 gm TOP BID [facility] Last Admin: 07/07/16 10:07 Dose: 1 applic Ondansetron HCl (Zofran Inj) 4 mg IVP Q6H PRN PRN Reason: Nausea/Vomiting Last Admin: 06/30/16 12:15 Dose: 4 mg Ondansetron HCl (Zofran Inj) 4 mg IVP ONCE PRN PRN Reason: Nausea/Vomiting Pantoprazole Sodium (Protonix Inj) 40 mg IVP DAILY [facility] Last Admin: 07/07/16 09:54 Dose: 40 mg - Labs Labs: 07/07/16 09:45 07/07/16 09:45 PT 10.4 Seconds (9.9-11.8) 07/02/16 05:30 INR 0.96 (0.93-1.08) 07/02/16 05:30 APTT 39.0 Seconds (23.7-30.8) H 07/02/16 11:00 - Constitutional Appears: Non-toxic, No Acute Distress - Head Exam Head Exam: NORMAL INSPECTION, NORMOCEPHALIC - Eye Exam Eye Exam: EOMI, PERRL - ENT Exam ENT Exam: Mucous Membranes Moist - Neck Exam Neck Exam: Normal Inspection - Respiratory Exam Respiratory Exam: Rhonchi, Wheezes. absent: Rales, NORMAL BREATHING PATTERN - Cardiovascular Exam Cardiovascular Exam: RRR, +S1, +S2. absent: Gallop, JVD, Rubs - GI/Abdominal Exam GI & Abdominal Exam: Distended, Soft, Tenderness. absent: Firm, Guarding, Rigid , Rebound - Extremities Exam Additional comments: RUE: no sensation; motor function 0/5; radial pulse 1/4; unchanged from prior exams LUE: sensation intact; motor function 5/5; radial pulse 2/4 bilateral lower extremities: 1+ edema; motor function 5/5; sensation intact - Neurological Exam Neurological Exam: Alert, Awake, Oriented x3 - Psychiatric Exam Psychiatric exam: Normal Affect, Normal Mood - Skin Skin Exam: Dry, Intact, Normal Color, Warm Assessment and Plan - Assessment and Plan (Free Text) Plan: 75yo Female with history of CHF, DM2, TIA, hypothyroidism, chronic LE edema, history of DVT and CBD stones admitted to the ICU for rhabdomyolysis, acute Kidney injury, right arm paralysis and acute cholecystitis 1. Rhabdomyolysis/DIMITRY on CKD/Acute tubular necrosis -Patient received 4 liters of fluid in the ED and was aggressively hydrated with NS @ 200cc/hr on presentation -Patient was subsequently given IV albumin 25gm q12h and IV lasix ~1hr post albumin -Urine output over the past 12hours ~200cc; remains oliguric -Patient remains oliguric and had her first dialysis session over the weekend per nephrology recommendations -Albumin 25gm q12h ordered followed by lasix as BP tolerates -PICC line placed today due to poor venous access -Monitor I's and O's -Daily weight -IR consulted - Dr. Cui -Nephrology consulted - Dr. Ron 2. Sepsis -Afebrile however significant leukocytosis -Procalcitonin elevated -Wound culture positive for klebsiella -CT chest/abd/pelvis revealed interstitial and peribronchial thickening with right basilar and middle lobe consolidation; persistent pneumobilia within the left hepatic lobe; see full report -ID consulted - Dr. Banks -Continue with meropenem per ID recommendations -As per ID, this patient possesses a high risk of developing nosocomial pneumonia 3. Right upper extremity paralysis -CT RUE reviewed; Did not reveal any mass or hematoma involving the brachial plexus, however soft tissue density along plexus possible -RUE sensation/motor function without improvement since admission -RUE venous duplex negative for DVT -No surgical intervention was recommended 4. Acute cholecystitis/CBD dilatation -HIDA scan reviewed; consistent with acute cholecystitis -Abdominal US reviewed; CBD measures 8.6mm, cholelithiasis, gallbladder lesion -CT abd/pelvis reviewed -MRCP reviewed -Patient is s/p cholecystectomy; POD # 4; was originally intubated however extubated successfully in the ICU; will continue to monitor her clinical status post surgery -Continue meropenem per ID recommendations -ID consulted - Dr. Banks -Surgery consulted - Dr. Elias -GI consulted - Dr. Duncan 5. Anemia -Hgb downtrending since admission -Ordered 2u pRBC to be transfused today -Anemia workup reviewed; likely multifactorial secondary to sepsis/anemia of chronic disease/chronic kidney disease -Will continue to trend H/H and transfuse as necessary 6. s/p fall -Cervical, maxillofacial, shoulder and hip/pelvis x-rays negative -CT Head negative for acute intracranial pathology 7. DM type 2 -Humalog low dose ISS -Patient currently NPO -Fingersticks ACHS 8. GI/DVT Prophylaxis -Protonix/SCD's Patient seen, reviewed and case discussed with attending, Dr. Porter <Mark Porter - Last Filed: 08/08/16 08:45> Objective - Vital Signs/Intake and Output Vital Signs (last 24 hours): Temp Pulse Resp BP Pulse Ox 98.4 F 82 22 147/58 L 94 L 07/13/16 08:15 07/13/16 08:15 07/13/16 08:15 07/13/16 08:15 07/13/16 08:15 - Labs Labs: 07/13/16 06:40 07/13/16 06:40 PT 10.4 Seconds (9.9-11.8) 07/02/16 05:30 INR 0.96 (0.93-1.08) 07/02/16 05:30 APTT 39.0 Seconds (23.7-30.8) H 07/02/16 11:00 Attending/Attestation - Attestation I have personally seen and examined this patient.: Yes I have fully participated in the care of the patient.: Yes I have reviewed all pertinent clinical information, including history, physical exam and plan: Yes Notes (Text): 08/08/16 08:45 Medical record note made by the resident after discussion with my direction and input after the patient was personally seen and examined by me. I have reviewed the chart and agree that the record reflects my personal performance of history, physical, data review and course for the patient that I have planned.
[2016-07-08] MEDS ORDERED: Albuterol-Ipratrop 3 mg / 0.5 (3 ml) UD IH STA (07:52)
--- NOTE | 2016-07-08 07:59 | CP.PCM.PN ---
Subjective - Date & Time of Evaluation Date of Evaluation: 07/08/16 Time of Evaluation: 07:56 - Subjective Subjective: General Surgery: Dr Elias POD#5 s/p Laparoscopic cholecystectomy converted to open Pt S&E. Transferred to [facility] overnight. Pt denies any abdominal pain at this time. Denies N/V, F/C. Tolerating FLD, passing flatus and having BMs. Pt had CT chest/abdomen ordered by primary yesterday due to persistent leukocytosis. No obvious source recognized. Abdomen shows only post-operative changes. Pt is reporting worsening congestion and cough. She denies SOB but has had difficulty speaking in full sentences. Per nursing documentation pt only produced 120mL of urine yesterday. BUN/Cr only slightly improved. Per nephrology no further hemodialysis is indicated. CHRISTIANO drain w/ ~25cc serosanguinous (tinting unlikely bile leak given low output) Objective - Vital Signs/Intake and Output Vital Signs (last 24 hours): Temp Pulse Resp BP Pulse Ox 98.4 F 101 H 22 113/51 L 96 07/07/16 00:00 07/07/16 22:00 07/07/16 22:00 07/07/16 22:00 07/07/16 22:00 Intake and Output: 07/08/16 07/08/16 06:59 18:59 Intake Total 1695 Output Total 720 Balance 975 - Medications Medications: Current Medications Albuterol Sulfate (Albuterol 0.083% Inhal Lorri (2.5 Mg/3 Ml) Ud) 2.5 mg IH [id number] [facility] Last Admin: 07/08/16 07:33 Dose: 2.5 mg Albuterol Sulfate (Albuterol 0.083% Inhal Lorri (2.5 Mg/3 Ml) Ud) 2.5 mg IH Q3 PRN PRN Reason: SOB Last Admin: 07/08/16 06:14 Dose: 2.5 mg Benzocaine/Menthol (Cepacol Sore Throat) 1 adin MT Q2H PRN PRN Reason: Sore Throat Ferrous Sulfate (Feosol) 324 mg PO BID [facility] Last Admin: 07/07/16 17:25 Dose: 324 mg Guaifenesin/Dextromethorphan (Robitussin Dm) 5 ml PO Q4H PRN PRN Reason: Cough Heparin Sodium (Porcine) (Heparin) 5,000 units SC Q12 [facility] PRN Reason: Protocol Last Admin: 07/07/16 22:21 Dose: 5,000 units Meropenem 250 mg/ Sodium (Chloride) 100 mls @ 100 mls/hr IVPB Q12H [facility] PRN Reason: Protocol Stop: 07/13/16 09:46 Last Admin: 07/07/16 22:21 Dose: 100 mls/hr Sodium Chloride (Sodium Chloride 0.9%) 1,000 mls @ 75 mls/hr IV .[id number] [facility] Last Admin: 07/07/16 12:08 Dose: 75 mls/hr Insulin Human Lispro (Humalog Low) 0 units SC ACHS [facility] PRN Reason: Protocol Last Admin: 07/07/16 22:21 Dose: Not Given Levothyroxine Sodium (Synthroid) 75 mcg PO 0630 [facility] Last Admin: 07/08/16 07:05 Dose: 75 mcg Metoclopramide HCl (Reglan) 10 mg IV ONCE PRN PRN Reason: Nausea/Vomiting Nystatin (Nystop Topical Powder) 0 gm TOP BID [facility] Last Admin: 07/07/16 10:07 Dose: 1 applic Ondansetron HCl (Zofran Inj) 4 mg IVP Q6H PRN PRN Reason: Nausea/Vomiting Last Admin: 06/30/16 12:15 Dose: 4 mg Ondansetron HCl (Zofran Inj) 4 mg IVP ONCE PRN PRN Reason: Nausea/Vomiting Pantoprazole Sodium (Protonix Inj) 40 mg IVP DAILY [facility] Last Admin: 07/07/16 09:54 Dose: 40 mg - Labs Labs: 07/07/16 09:45 07/07/16 09:45 PT 10.4 Seconds (9.9-11.8) 07/02/16 05:30 INR 0.96 (0.93-1.08) 07/02/16 05:30 APTT 39.0 Seconds (23.7-30.8) H 07/02/16 11:00 - Constitutional Appears: Non-toxic, No Acute Distress - Head Exam Head Exam: NORMOCEPHALIC - Respiratory Exam Respiratory Exam: Rhonchi. absent: Accessory Muscle Use, Respiratory Distress - Cardiovascular Exam Cardiovascular Exam: absent: Tachycardia - GI/Abdominal Exam GI & Abdominal Exam: Soft. absent: Distended, Firm, Guarding, Tenderness Additional comments: incision c/d/i CHRISTIANO dressing changed - Neurological Exam Neurological Exam: Alert, Awake - Psychiatric Exam Psychiatric exam: Normal Affect, Normal Mood - Skin Skin Exam: Normal Color, Warm Assessment and Plan - Assessment and Plan (Free Text) Assessment: 75F POD#5 s/p lap janie for necrotic gallbladder; course complicated by sepsis , tami 2/2 rhabdo Plan: pt doing well post-op there is no intra-abdominal pathology to account for persistent leukocytosis increasing concern for development of nosocomial pneumonia defer to ID/Pulm/Renal for further management of associated issues Can advance diet as pt tolerates D/W Dr Curt Hernández, PGY2
--- NOTE | 2016-07-08 08:00 | PN ---
DATE: 07/08/2016 SUBJECTIVE: The patient appears comfortable at rest. She is not short of breath. PHYSICAL EXAMINATION: VITAL SIGNS: Last temperature recorded is 98.4. Pulse this morning approximately 88, respiratory rate 20, last blood pressure recorded 113/51. Oxygen saturation on nasal cannula is 96%. HEENT: Normocephalic. Less ecchymosis -- right facial area. No JVD. CARDIOVASCULAR: Systolic ejection murmur at the lower left sternal border. No S3 gallop. LUNGS: Decreased breath sounds at the bases. Minimal rhonchi. No wheezing. EXTREMITIES: Positive for edema. No cyanosis, no clubbing. Calves are nontender to palpation. GASTROINTESTINAL: Abdomen is soft. It is mildly distended and mildly tender to palpation. Bowel sounds are positive. SKIN: Positive cellulitic changes on the legs (anterior aspects). No rashes. NEUROLOGIC: Limited at the present time. PERTINENT LABORATORY DATA: CAT scan of the chest, abdomen and pelvis was repeated yesterday. There is mild interstitial prominence noted. There is also mild bibasilar atelectasis. There is also moderate anasarca -- not changed. IMPRESSION: 1. Acute rhabdomyolysis. Status post fall. 2. Acute renal failure. 3. Sepsis syndrome. 4. Acute cholecystitis. Status post cholecystectomy. 5. Anemia. 6. Mild bronchospasm. PLAN: The patient appears comfortable this morning. She is not short of breath at rest. She does state to feeling better overall. I did review the CAT scan of the chest -- as above. Again, there is interstitial prominence noted. There are also mild bibasilar atelectatic changes. I will continue with the current nebulizer treatments, chest percussion therapy, and incentive spirometry. I did discuss these orders with the respiratory therapist this morning. The patient does need aggressive physical therapy. She remains on antibiotic therapy -- as per infectious disease. Temperatures have resolved. Repeat labs are pending. Clinical status of the patient is significantly improved -- compared to last week. However, the overall status/prognosis for this elderly patient with multiple medical problems -- remains very guarded. All are aware. I will discuss the above with Dr. Porter. Lionel Sheehan MD cc: [id number] TT: 07/08/2016 07:59:43 Confirmation # [id number] Dictation # [id number] en MTDGuy
[2016-07-08] MEDS: Insulin Lispro (humaLOG) LOW Coverage SC SCH ×3 (08:10→17:26)
--- NOTE | 2016-07-08 08:11 | PN ---
DATE: 07/07/2016 The patient is in bed in no acute distress, was seen earlier today. No fevers and no chills. PHYSICAL EXAMINATION: VITAL SIGNS: Temperature is 98, blood pressure is 120/60, respiratory rate of 16. HEENT: Unremarkable. NECK: Supple. LUNGS: Have decreased breath sounds. HEART: Normal S1, S2. ABDOMEN: Soft, nontender. LABORATORY DATA: Reveals a white count of 23,000, hemoglobin of 7 and haptoglobin of and BUN of 83, creatinine of 3.6, procalcitonin is 6.28. ASSESSMENT AND PLAN: A 75-year-old female with severe sepsis, acute renal failure, acute severe rhab domyolysis, cholecystitis, cholelithiasis, hypertension, chronic congestive heart failure, diabetes m ellitus, morbid obesity with a BMI of 47, hypothyroidism, status post cholecystectomy post-procedure day #4 with persistent leukocytosis and currently on meropenem. The patient's chest x-ray from to y: No active pulmonary disease. We will check on tomorrow's CBC. Check on the pathology from the g allbladder. Renew the meropenem and order a CAT scan of the chest and abdomen and pelvis to rule out a collection, although patient's white count has been persistently elevated throughout the hospitali zation at 88% polys, 3% bands. I will follow closely with you. Ang Banks MD cc: [phone] TT: 07/07/2016 17:53:59 Confirmation # [id number] Dictation # [id number] mn
[2016-07-08 08:39] LABS: MEAN CELL VOLUME 92.8 fL (80.0-105.0); MEAN CORPUSCULAR HEMOGLOBIN 31.4 pg (25.0-35.0); MEAN CORPUSCULAR HGB CONC 33.8 g/dl (31.0-37.0); MEAN PLATELET VOLUME 9.4 fl (7.0-11.0); PLATELET COUNT 309 10^3/uL (120.0-450.0); RED CELL DISTRIBUTION WIDTH 15.1 % (11.5-14.5); WHITE BLOOD COUNT 22.5 10^3/ul (4.5-11.0)
[2016-07-08 08:42] LABS: ADD MANUAL DIFF? YES; HEMATOCRIT 21.9 % (36.0-48.0)
[2016-07-08 08:49] LABS: ALB/GLOB RATIO 0.8 (1.1-1.8); BILIRUBIN,TOTAL 0.8 mg/dL (0.2-1.3); CALCIUM 8.1 mg/dL (8.4-10.5); TOTAL PROTEIN 5.7 g/dL (5.8-8.3)
--- NOTE | 2016-07-08 09:24 | RAD ---
HISTORY: follow up COMPARISON: 07/07/2016 FINDINGS: LUNGS: No active pulmonary disease. PLEURA: No significant pleural effusion identified, no pneumothorax apparent. CARDIOVASCULAR: Moderate vascular congestion. Mild cardiomegaly OSSEOUS STRUCTURES: No significant abnormalities. VISUALIZED UPPER ABDOMEN: Normal. OTHER FINDINGS: None. IMPRESSION: Moderate vascular congestion. Mild cardiomegaly
[2016-07-08 09:51] LABS: ATYPICAL LYMPHOCYTE 1 % (0.0-0.0); BAND 3 % (0-2); EOSINOPHIL 3 % (0.0-3.0); NEUTROPHIL 81 % (50.0-70.0); PLATELET ESTIMATE NORMAL (NORMAL)
[2016-07-08 09:52] LABS: ANISOCYTOSIS 1+; HYPOCHROMIA 2+; OVALOCYTES SLIGHT; POIKILOCYTOSIS SLIGHT; POLYCHROMASIA SLIGHT
[2016-07-08] MEDS: Nystatin 100,000 Units/gm Topical Pow(15 gm) TOP SCH ×2 (09:58→17:58)
--- NOTE | 2016-07-08 10:08 | PN ---
DATE: 07/08/2016 The patient is seen on the floor status post cholecystectomy. The pathology comes back showing necro tic gallbladder and almost certainly the source of the sepsis. Vital signs are normal with a pulse o f 101. She is very lethargic this morning, less so than yesterday. The drain is 20 mL of serosangui neous. The hint of bile I might have seen seemed to resolve. She is having multiple bowel movements . LABORATORY: Remarkable for a white count that is still elevated at 22. Liver functions are normaliz ing quite nicely. Still no function in the right arm. She is lethargic, lying in bed. Will ask physical therapy to st art moving her a little bit more vigorously. CAT scan of the chest, abdomen and pelvis was done yesterday without IV or oral contrast. Nothing re markable about the gallbladder except hemobilia consistent with the recent ERCP, cardiomegaly, a smal l pericardial effusion noted. No masses in the belly. Will follow. Miguel Ángel Elias MD cc: [phone] TT: 07/08/2016 10:08:27 Confirmation # [id number] Dictation # [id number] maribell
--- NOTE | 2016-07-08 11:00 | PN ---
DATE: 07/08/2016 Seen and examined at the bedside earlier today. She was asleep, but easily arousable. No acute over night events were reported. It looks like patient's urine output is a bit more improved compared to yesterday. The patient is tolerating her liquid diet. No reports of nausea, vomiting or abdominal p ain. VITAL SIGNS: Temperature is 98.8, blood pressure is 107/49, pulse rate is 101, respirations 20, 98% on room air. LABORATORIES: WBC is 22.5, her H and H is 7.4 and 21.9, platelets of 309. Sodium 136, K 4.0, BUN 82 , creatinine 3.4, total bilirubin 0.8, AST 77, ALT 78, alkaline phosphatase is 94. Stool occult bloo d negative. Chest x-ray done today and it showed moderate vascular congestion, mild cardiomegaly. She also had a CT scan chest, abdomen and pelvis done yesterday and that was with only oral contrast that showed pe rsistent pneumobilia specifically within the left hepatic lobe, gallbladder and bile ducts interval c holecystectomy with a drainage catheter in the gallbladder fossa, expected fluid within the gal lbladder fossa, pancreas limited eval secondary to lack of IV contrast, spleen no acute findings, per sistent simple and complex renal cysts. Abdomen and pelvis, no acute findings. There is interstitia l and peribronchial thickening with right bibasilar and middle lobe consolidation, cardiomegaly with a small pericardial effusion, moderate anasarca and interval change. PHYSICAL EXAMINATION: HEENT: Sclera is icteric. NECK: Supple. CARDIAC: S1, S2. LUNG SOUNDS: Decreased breath sounds, positive rhonchi, no wheezing. ABDOMEN: With bowel sounds, softly distended. Surgical incisions with ilir open to air. Positiv e CHRISTIANO drain. EXTREMITIES: She has upper and lower extremity edema. NEUROLOGIC: Sleepy, but easily arousable. ASSESSMENT: This is a 75-year-old female with history of diabetes mellitus, status post fall with rh abdomyolysis. She complains of right arm paralysis and is in acute renal failure. She is also found to have sepsis and was found to have acute cholecystitis, status post open cholecystectomy. The pat ient did have 1 treatment of dialysis. PLAN: Continue to trend LFTs, which is improving. She is on IV antibiotics of meropenem, is on deep venous thrombosis prophylaxis of heparin, on Protonix IV. The patient is also with anemia, is on ir on. History of ERCP in the past. The patient is reported to have liquid BMs. No reports of bleedin g. The patient was seen and case discussed with Dr. Duncan. Sweetie BUNN cc: [id number] TT: 07/08/2016 10:59:43 Confirmation # [id number] Dictation # [id number] en
--- NOTE | 2016-07-08 12:35 | PN ---
DATE: 07/08/2016 A 75-year-old female with past medical history of hypertension, diabetes, hypothyroidism, lower extremity DVT, admitted with severe rhabdomyolysis, cholecystitis, sepsis and acute renal failure for which nephrology is following. The patient today again reporting no shortness of breath, tolerating liquid diet. Still no bowel movement nor flatus either; denies any pain around right IJ dialysis catheter tunnel exit site. PHYSICAL EXAMINATION: VITAL SIGNS: This morning, blood pressure 107/49, heart rate 101, respirations 20, temperature 98.8, O2 sat 98% on room air. GENERAL: No distress, conversing coherently in full sentences. HEENT: Moist mucous membranes. Nonicteric. CHEST: Mild basilar rales present. No rhonchi, no wheezes. CARDIOVASCULAR: Soft S2. No murmurs, no rubs, no gallops. GASTROINTESTINAL: Abdomen soft, nontender, nondistended. GENITOURINARY: Briones in place with approximately 175 mL of urine over the past 5 hours. EXTREMITIES: Markedly edematous legs. PSYCHIATRIC: Normal mood, normal affect. SKIN: Warm to touch. No cyanosis. LABORATORY DATA: This morning, CBC: WBC 22.5, hemoglobin 7.4, hematocrit 21.9 , platelets 309. Chemistry panel: Sodium 136, potassium 4.0, chloride 103, bicarb 21, BUN 82, creatinine 3.6, glucose 124, calcium 8.1, CK 437, albumin 2.5. Urine electrolytes: Urine sodium 29, creatinine 76. Fractional excretion of sodium approximately 1%. ASSESSMENT: 1. Acute renal failure, acute kidney injury on chronic kidney disease, stage III; oliguric renal failure due to acute tubular necrosis from severe rhabdomyolysis. Serum creatinine showing mild improvement, although this may be democrat dilutional, still borderline oliguric today, but overall urine output improved. Started on gentle IV fluids yesterday for concern about any prerenal etiology that may be superimposed on the patient's acute tubular necrosis; urine lytes consisent with pre-renal etiology although this would be atypical for ATN recovery stage during which there would be tubular dysfunction and hence polyuria; patient persistently having low diastolic blood pressures and systolic blood pressures dropping to 80s intermittently, consistent with ongoing vaso-dilated state in the setting of sepsis; otherwise, stable electrolyte status and relatively stable respiratory status. -Agree with the primary team's decision to give blood as this will increase the oncotic pressure intravascularly to help with renal perfusion. -Necessary to keep positive sodium balance in the setting of hypotension. We will continue IV fluids, also getting albumin. 2. Rhabdomyolysis secondary to right arm muscle injury. CK level continues to trend downward, no longer hypocalcemic. We will check phosphate levels intermittently and start phosphate binder if needed if patient is getting a regular diet. 3. Sepsis, now status post cholecystectomy, still with marked leukocytosis with no significant roving changer the last few days on meropenem 1 gram q. 12 hours. This may be contributing to what looks like vaso-dilated state and would consider adding dose of vancomycin 750 mg x 1 despite blood and urine cultures being negative. There was a concern raised regarding possible infection of dialysis catheter tunnel exit site. However, no erythema, pain or pus expressed from site. -Continue to dose antibiotics for creatinine clearance less than 20 mL per minute. -Start midodrine for peripheral vasoconstrictive effect 4. Anemia. Hemoglobin continues to trend down. Iron deficient. Agree with blood transfusion. Stool for occult blood was negative, although yield would be low as the patient not having bowel movements. Timmy Ron MD cc: [id number] TT: 07/08/2016 12:34:09 Confirmation # [id number] Dictation # [id number] tn MTDD
--- NOTE | 2016-07-08 13:03 | PN ---
DATE: 07/08/2016 FOLLOWUP A 75-year-old female with a past medical history of TIA, hypertension, CHF, hypothyroidism. The andrea ent fell in the bathroom, unable to get up for 2-3 days, lying on the floor. Denies any loss of cons ciousness, unable to move right upper extremity, and the patient also has some hematoma on the right side of the face, eyelids. PHYSICAL EXAMINATION: NEUROLOGIC: Awake, oriented to self. No aphasia. Cranial nerves II through XII were tested. Spont aneous movement of all the extremities noted except right upper extremity unable to move, and cerebel lar gait deferred. IMPRESSION: Status post trauma, syncope, fell and injured her right upper extremity, possibly brachi al plexus injury, and we will continue present management. CT scan of the head and the cervical spin e did not show ____. PLAN: Continue present management. We will follow up. Tam Ordonez MD cc: [id number] TT: 07/08/2016 13:03:13 Confirmation # [id number] Dictation # [id number] jn
[2016-07-08] MEDS: Albumin Human 25% (25 gm/100 ml) IV SCH ×2 (13:58→17:25)
[2016-07-08] MEDS ORDERED: Lidocaine 2% Inj (20ml) ONE (15:02)
--- NOTE | 2016-07-08 17:17 | VASCULAR ---
PROCEDURE: Ultrasound and fluoroscopically placed left upper extremity PICC line. HISTORY: Postcholecystectomy. Sepsis and postop abscess. Long-term IV antibiotics. Needs PICC line. PHYSICIAN(S): Nathan Cui MD. TECHNIQUE: The relative risks and indications of the procedure were explained to the patient and consent obtained. The patient was placed supine on the arteriogram table and the left arm prepped and draped in the usual sterile fashion. A tourniquet was applied to the left axilla. 1% Xylocaine was used to anesthetize the skin and soft tissues at the puncture site above the elbow. The left basilic vein was punctured under direct ultrasound guidance with a micropuncture set. A 0.018 guidewire was advanced centrally and used to measure the length to the SVC/RA junction. A 5 Bengali single-lumen PICC line 50 cm long was advanced to the SVC/RA junction. The catheter was flushed and secured. The patient tolerated the procedure well. IMPRESSION: 1. Ultrasound and fluoroscopically placed left upper extremity PICC line. A 5 Bengali single-lumen PICC line 50 cm long was advanced to the SVC/RA junction.
--- NOTE | 2016-07-08 21:16 | CP.PCM.PN ---
Subjective - Date & Time of Evaluation Date of Evaluation: 07/08/16 Time of Evaluation: 10:15 - Subjective Subjective: Comfortable in bed, less cough, less SOB, no abdominal pain, no nausea, no diarrhea. Afebrile overnight. Objective - Vital Signs/Intake and Output Vital Signs (last 24 hours): Temp Pulse Resp BP Pulse Ox 98.8 F 101 H 20 107/49 L 98 07/08/16 07:30 07/08/16 07:30 07/08/16 07:30 07/08/16 07:30 07/08/16 07:30 Intake and Output: 07/08/16 07/08/16 06:59 18:59 Intake Total 1695 Output Total 720 Balance 975 - Medications Medications: Current Medications Albuterol Sulfate (Albuterol 0.083% Inhal Lorri (2.5 Mg/3 Ml) Ud) 2.5 mg IH [id number] [facility] Last Admin: 07/08/16 07:33 Dose: 2.5 mg Albuterol Sulfate (Albuterol 0.083% Inhal Lorri (2.5 Mg/3 Ml) Ud) 2.5 mg IH Q3 PRN PRN Reason: SOB Last Admin: 07/08/16 06:14 Dose: 2.5 mg Benzocaine/Menthol (Cepacol Sore Throat) 1 adin MT Q2H PRN PRN Reason: Sore Throat Ferrous Sulfate (Feosol) 324 mg PO BID [facility] Last Admin: 07/08/16 09:57 Dose: 324 mg Guaifenesin/Dextromethorphan (Robitussin Dm) 5 ml PO Q4H PRN PRN Reason: Cough Heparin Sodium (Porcine) (Heparin) 5,000 units SC Q12 [facility] PRN Reason: Protocol Last Admin: 07/08/16 09:57 Dose: 5,000 units Meropenem 250 mg/ Sodium (Chloride) 100 mls @ 100 mls/hr IVPB Q12H [facility] PRN Reason: Protocol Stop: 07/13/16 09:46 Last Admin: 07/08/16 09:57 Dose: 100 mls/hr Sodium Chloride (Sodium Chloride 0.9%) 1,000 mls @ 75 mls/hr IV .[id number] [facility] Last Admin: 07/07/16 12:08 Dose: 75 mls/hr Insulin Human Lispro (Humalog Low) 0 units SC ACHS [facility] PRN Reason: Protocol Last Admin: 07/08/16 08:10 Dose: 1 units Levothyroxine Sodium (Synthroid) 75 mcg PO 0630 [facility] Last Admin: 07/08/16 07:05 Dose: 75 mcg Metoclopramide HCl (Reglan) 10 mg IV ONCE PRN PRN Reason: Nausea/Vomiting Nystatin (Nystop Topical Powder) 0 gm TOP BID [facility] Last Admin: 07/08/16 09:58 Dose: 1 applic Ondansetron HCl (Zofran Inj) 4 mg IVP Q6H PRN PRN Reason: Nausea/Vomiting Last Admin: 06/30/16 12:15 Dose: 4 mg Ondansetron HCl (Zofran Inj) 4 mg IVP ONCE PRN PRN Reason: Nausea/Vomiting Pantoprazole Sodium (Protonix Inj) 40 mg IVP DAILY [facility] Last Admin: 07/08/16 09:57 Dose: 40 mg - Labs Labs: 07/08/16 08:00 07/08/16 08:00 PT 10.4 Seconds (9.9-11.8) 07/02/16 05:30 INR 0.96 (0.93-1.08) 07/02/16 05:30 APTT 39.0 Seconds (23.7-30.8) H 07/02/16 11:00 - Constitutional Appears: Non-toxic, No Acute Distress - Head Exam Head Exam: NORMAL INSPECTION - ENT Exam ENT Exam: Mucous Membranes Moist - Neck Exam Neck Exam: absent: Meningismus - Respiratory Exam Respiratory Exam: Decreased Breath Sounds - Cardiovascular Exam Cardiovascular Exam: +S1, +S2 - GI/Abdominal Exam GI & Abdominal Exam: Soft. absent: Tenderness Assessment and Plan - Assessment and Plan (Free Text) Plan: Assessment severe sepsis with acute renal failure in a patient with acute severe rhabdomyolysis, consider secondary to acute gangrenous cholecystitis/ biliary tree infection in a patient with biliary tree stones S/P lap cholecystectomy POD #5, growing Kleb oxytoca, pneumoniae, and Proteus mirabilis HTN chronic CHF DM morbid obesity with BMI 52 hypothyroidism S/P hysterectomy S/P bilateral knee replacements dyslipidemia history of TIA dyslipidemia history of chronic lower extremity cellulitis degenerative arthritis Plan Continue Meropenem since the WBC count is still elevated Will continue to monitor clinically and trend WBC count
[2016-07-09] MEDS: Insulin Lispro (humaLOG) LOW Coverage SC SCH ×4 (01:09→19:30)
[2016-07-09] MEDS: guaiFENesin DM 100 mg-10 mg/5 ml UD PO PRN ×4 (01:33→19:54)
[2016-07-09] MEDS: Albuterol 0.083% Inhal Sol (2.5 mg/3 mL) UD IH SCH ×4 (01:43→19:52)
[2016-07-09 07:19] LABS: BASO # 0.04 K/mm3 (0.0-2.0); BASO % 0.2 % (0.0-3.0); EOS # 0.6 (0.0-0.7); EOS % 3.4 % (1.5-5.0); GRAN # 15.45 (1.4-6.5); GRAN % 85.8 % (50.0-68.0); LYMPH % 5.8 % (22.0-35.0); MEAN CELL VOLUME 91.3 fL (80.0-105.0); MEAN CORPUSCULAR HEMOGLOBIN 31.6 pg (25.0-35.0); MEAN CORPUSCULAR HGB CONC 34.6 g/dl (31.0-37.0); MEAN PLATELET VOLUME 9.5 fl (7.0-11.0); MONO # 0.9 (0.1-0.6); MONO % 4.8 % (1.0-6.0); PLATELET COUNT 276 10^3/uL (120.0-450.0); RED CELL DISTRIBUTION WIDTH 15.1 % (11.5-14.5)
[2016-07-09 07:27] LABS: ALB/GLOB RATIO 0.9 (1.1-1.8); BILIRUBIN,TOTAL 1.3 mg/dL (0.2-1.3); CALCIUM 8.2 mg/dL (8.4-10.5); POTASSIUM 4.2 mmol/L (3.6-5.0); TOTAL PROTEIN 5.6 g/dL (5.8-8.3)
--- NOTE | 2016-07-09 07:43 | CP.PCM.PN ---
Subjective - Date & Time of Evaluation Date of Evaluation: 07/09/16 Time of Evaluation: 07:42 - Subjective Subjective: Gen Surg: Dr Elias Pt S&E. Reports feeling better today, less sob, less cough. Tolerating liquids. Had PICC placed yesterday. Pt on schedule for CT guided drainage of abscess this morning? Remains on Merrem. Objective - Vital Signs/Intake and Output Vital Signs (last 24 hours): Temp Pulse Resp BP Pulse Ox 98.8 F 84 20 100/44 L 96 07/09/16 05:35 07/09/16 05:35 07/09/16 05:35 07/09/16 05:35 07/08/16 16:00 Intake and Output: 07/09/16 07/09/16 06:59 18:59 Intake Total 1300 Output Total 805 Balance 495 - Medications Medications: Current Medications Albumin Human (Albumin Human 25% (25 Gm/100 Ml)) 25 gm IV BID [facility] Stop: 07/09/16 18:01 Albuterol Sulfate (Albuterol 0.083% Inhal Lorri (2.5 Mg/3 Ml) Ud) 2.5 mg IH [id number] [facility] Last Admin: 07/09/16 07:32 Dose: 2.5 mg Albuterol Sulfate (Albuterol 0.083% Inhal Lorri (2.5 Mg/3 Ml) Ud) 2.5 mg IH Q3 PRN PRN Reason: SOB Last Admin: 07/08/16 23:30 Dose: 2.5 mg Benzocaine/Menthol (Cepacol Sore Throat) 1 adin MT Q2H PRN PRN Reason: Sore Throat Docusate Sodium (Colace) 100 mg PO BID [facility] Last Admin: 07/08/16 17:24 Dose: 100 mg Ferrous Sulfate (Feosol) 324 mg PO BID [facility] Last Admin: 07/08/16 17:24 Dose: 324 mg Guaifenesin/Dextromethorphan (Robitussin Dm) 5 ml PO Q4H PRN PRN Reason: Cough Last Admin: 07/09/16 06:20 Dose: 5 ml Heparin Sodium (Porcine) (Heparin) 5,000 units SC Q12 [facility] PRN Reason: Protocol Last Admin: 07/08/16 22:10 Dose: 5,000 units Meropenem 250 mg/ Sodium (Chloride) 100 mls @ 100 mls/hr IVPB Q12H [facility] PRN Reason: Protocol Stop: 07/13/16 09:46 Last Admin: 07/08/16 22:10 Dose: 100 mls/hr Sodium Chloride (Sodium Chloride 0.9%) 1,000 mls @ 75 mls/hr IV .[id number] [facility] Last Admin: 07/07/16 12:08 Dose: 75 mls/hr Insulin Human Lispro (Humalog Low) 0 units SC ACHS [facility] PRN Reason: Protocol Last Admin: 07/09/16 01:09 Dose: Not Given Levothyroxine Sodium (Synthroid) 75 mcg PO 0630 [facility] Last Admin: 07/08/16 07:05 Dose: 75 mcg Metoclopramide HCl (Reglan) 10 mg IV ONCE PRN PRN Reason: Nausea/Vomiting Midodrine (Proamatine) 5 mg PO Q8H [facility] Last Admin: 07/08/16 23:01 Dose: 5 mg Nystatin (Nystop Topical Powder) 0 gm TOP BID [facility] Last Admin: 07/08/16 17:58 Dose: 1 applic Ondansetron HCl (Zofran Inj) 4 mg IVP Q6H PRN PRN Reason: Nausea/Vomiting Last Admin: 06/30/16 12:15 Dose: 4 mg Pantoprazole Sodium (Protonix Inj) 40 mg IVP DAILY [facility] Last Admin: 07/08/16 09:57 Dose: 40 mg - Labs Labs: 07/08/16 08:00 07/08/16 08:00 PT 10.4 Seconds (9.9-11.8) 07/02/16 05:30 INR 0.96 (0.93-1.08) 07/02/16 05:30 APTT 39.0 Seconds (23.7-30.8) H 07/02/16 11:00 - Constitutional Appears: Non-toxic, No Acute Distress - Respiratory Exam Respiratory Exam: absent: Accessory Muscle Use, Respiratory Distress - Cardiovascular Exam Cardiovascular Exam: REGULAR RHYTHM - GI/Abdominal Exam GI & Abdominal Exam: Soft. absent: Distended, Firm, Tenderness Additional comments: incisions c/d/i - Extremities Exam Extremities Exam: absent: Calf Tenderness, Pedal Edema - Neurological Exam Neurological Exam: Alert, Awake, Oriented x3 - Psychiatric Exam Psychiatric exam: Normal Affect, Normal Mood - Skin Skin Exam: Normal Color, Warm Assessment and Plan - Assessment and Plan (Free Text) Assessment: 75F POD#6 s/p open cholecystectomy Plan: Cont Merrem as per ID -leukocytosis remains -procal declining Cont liquid diet unless pt desires solid food Cont mgmt of DIMITRY per neprhology Will remove drain in near future Pt for CT guided drainage this morning but unclear what abscess is being addressed Eber Hernández DO, PGY2 d/w Dr Elias
--- NOTE | 2016-07-09 07:47 | PN ---
DATE: 07/09/2016 SUBJECTIVE: The patient appears comfortable at rest. She is not short of breath. PHYSICAL EXAMINATION: VITAL SIGNS: Temperature is 98.8, pulse 84, respirations 18/20, blood pressure 100/44. Oxygen saturation on nasal cannula is 96%. HEENT: Normocephalic. Less ecchymosis -- right facial area. No JVD. CARDIOVASCULAR: Systolic ejection murmur at the lower left sternal border. No S3 gallop. LUNGS: Decreased breath sounds at the bases. Minimal/less rhonchi. No wheezing. EXTREMITIES: Positive for edema. No cyanosis, no clubbing. Calves are nontender to palpation. GASTROINTESTINAL: Abdomen is soft. It is not distended and nontender to palpation. Bowel sounds are positive. SKIN: Mild cellulitic changes on the legs (anterior aspects). No rashes. NEUROLOGIC: Limited at the present time. IMPRESSION: 1. Acute rhabdomyolysis. Status post fall. 2. Acute renal failure. 3. Sepsis syndrome. 4. Acute cholecystitis. Status post cholecystectomy. 5. Anemia. 6. Mild bronchospasm. PLAN: The patient appears very comfortable this morning. She is not short of breath at rest. She states she is feeling much better overall. On physical exam, her bronchospasm continues to resolve. In addition, the alveolar- arterial gradient also continues to resolve. I will continue with the current nebulizer treatments, incentive spirometry, and chest percussion therapy for now. Again, hopefully there is some way-- that the patient can be out of bed more often. I would continue with the antibiotic coverage as per infectious disease. The temperatures have resolved. The leukocytosis is decreased. I would continue with the GI and surgical evaluations. Inputs are noted. Clinical status of the patient is significantly improved -- compared to last week. However, again, the overall/future prognosis for this elderly patient -- with multiple medical problems -- remains guarded. All are aware. I will discuss the above with Dr. Porter. Lionel Sheehan MD cc: [id number] TT: 07/09/2016 07:46:32 Confirmation # [id number] Dictation # [id number] en MTDD
[2016-07-09] MEDS: Sodium Chloride 0.9% 1,000 ML IV SCH (08:11)
[2016-07-09 08:30] LABS: ADD MANUAL DIFF? NO
[2016-07-09] MEDS ORDERED: Midazolam 2 MG/2 ML VIAL ONE (09:12)
[2016-07-09] MEDS ORDERED: DAPTOmycin 500 mg Inj (Cubicin) IV SCH (10:30)
[2016-07-09] MEDS: Albumin Human 25% (25 gm/100 ml) IV SCH ×2 (12:26→23:47)
[2016-07-09] MEDS: Nystatin 100,000 Units/gm Topical Pow(15 gm) TOP SCH ×3 (12:43→17:50)
--- NOTE | 2016-07-09 13:19 | CP.PCM.PN ---
<Luis Conde - Last Filed: 07/09/16 13:16> Subjective - Date & Time of Evaluation Date of Evaluation: 07/09/16 Time of Evaluation: 13:16 - Subjective Subjective: Medicine progress note - Luis Conde PGY1 Patient seen and examined at bedside this morning. No acute overnight events or new complaints. Her right upper extremity remains unchanged. Patient went for CT guided abscess draining by IR today. White count downtrending today and patient has some improvement today. Urine output over last 24 hours ~1500mL. Denies chest pain, palpitations, SOB. Objective - Vital Signs/Intake and Output Vital Signs (last 24 hours): Temp Pulse Resp BP Pulse Ox 98.8 F 88 18 111/41 L 94 L 07/09/16 11:00 07/09/16 11:00 07/09/16 11:00 07/09/16 11:00 07/09/16 11:00 Intake and Output: 07/09/16 07/09/16 06:59 18:59 Intake Total 1300 150 Output Total 805 Balance 495 150 - Medications Medications: Current Medications Albumin Human (Albumin Human 25% (25 Gm/100 Ml)) 25 gm IV BID [facility] Stop: 07/09/16 18:01 Last Admin: 07/09/16 12:26 Dose: 25 gm Albuterol Sulfate (Albuterol 0.083% Inhal Lorri (2.5 Mg/3 Ml) Ud) 2.5 mg IH [id number] [facility] Last Admin: 07/09/16 07:32 Dose: 2.5 mg Albuterol Sulfate (Albuterol 0.083% Inhal Lorri (2.5 Mg/3 Ml) Ud) 2.5 mg IH Q3 PRN PRN Reason: SOB Last Admin: 07/08/16 23:30 Dose: 2.5 mg Benzocaine/Menthol (Cepacol Sore Throat) 1 adin MT Q2H PRN PRN Reason: Sore Throat Docusate Sodium (Colace) 100 mg PO BID [facility] Last Admin: 07/09/16 12:38 Dose: 100 mg Ferrous Sulfate (Feosol) 324 mg PO BID [facility] Last Admin: 07/09/16 12:38 Dose: 324 mg Guaifenesin/Dextromethorphan (Robitussin Dm) 5 ml PO Q4H PRN PRN Reason: Cough Last Admin: 07/09/16 12:38 Dose: 5 ml Heparin Sodium (Porcine) (Heparin) 5,000 units SC Q12 [facility] PRN Reason: Protocol Last Admin: 07/08/16 22:10 Dose: 5,000 units Meropenem 250 mg/ Sodium (Chloride) 100 mls @ 100 mls/hr IVPB Q12H [facility] PRN Reason: Protocol Stop: 07/13/16 09:46 Last Admin: 07/08/16 22:10 Dose: 100 mls/hr Insulin Human Lispro (Humalog Low) 0 units SC ACHS [facility] PRN Reason: Protocol Last Admin: 07/09/16 12:29 Dose: Not Given Levothyroxine Sodium (Synthroid) 75 mcg PO 0630 [facility] Last Admin: 07/08/16 07:05 Dose: 75 mcg Metoclopramide HCl (Reglan) 10 mg IV ONCE PRN PRN Reason: Nausea/Vomiting Midodrine (Proamatine) 10 mg PO Q8H [facility] Last Admin: 07/09/16 08:40 Dose: 10 mg Nystatin (Nystop Topical Powder) 0 gm TOP BID [facility] Last Admin: 07/09/16 12:43 Dose: 1 applic Ondansetron HCl (Zofran Inj) 4 mg IVP Q6H PRN PRN Reason: Nausea/Vomiting Last Admin: 06/30/16 12:15 Dose: 4 mg Pantoprazole Sodium (Protonix Inj) 40 mg IVP DAILY [facility] Last Admin: 07/09/16 12:37 Dose: 40 mg - Labs Labs: 07/09/16 06:30 07/09/16 06:30 PT 10.4 Seconds (9.9-11.8) 07/02/16 05:30 INR 0.96 (0.93-1.08) 07/02/16 05:30 APTT 39.0 Seconds (23.7-30.8) H 07/02/16 11:00 - Constitutional Appears: Non-toxic, No Acute Distress - Head Exam Head Exam: ATRAUMATIC, NORMAL INSPECTION, NORMOCEPHALIC - Eye Exam Eye Exam: EOMI, PERRL - ENT Exam ENT Exam: Mucous Membranes Moist - Neck Exam Neck Exam: Normal Inspection - Respiratory Exam Respiratory Exam: Clear to Ausculation Bilateral. absent: Rales, Rhonchi, Wheezes - Cardiovascular Exam Cardiovascular Exam: RRR, +S1, +S2. absent: Gallop, Rubs, Murmur - GI/Abdominal Exam GI & Abdominal Exam: Distended, Soft, Tenderness. absent: Firm, Guarding, Rigid - Extremities Exam Extremities Exam: Pedal Edema Additional comments: RUE: no sensation; motor function 0/5; radial pulse 1/4; unchanged from prior exams LUE: sensation intact; motor function 5/5; radial pulse 2/4 bilateral lower extremities: 1+ edema; motor function 5/5; sensation intact - Neurological Exam Neurological Exam: Alert, Awake, Oriented x3 - Psychiatric Exam Psychiatric exam: Normal Affect, Normal Mood - Skin Skin Exam: Intact, Warm Additional comments: scaly Assessment and Plan - Assessment and Plan (Free Text) Plan: 75yo Female with history of CHF, DM2, TIA, hypothyroidism, chronic LE edema, history of DVT and CBD stones admitted to the ICU for rhabdomyolysis, acute Kidney injury, right arm paralysis and acute cholecystitis 1. Rhabdomyolysis/DIMITRY on CKD/Acute tubular necrosis -Patient received 4 liters of fluid in the ED and was aggressively hydrated with NS @ 200cc/hr on presentation -Patient was subsequently given IV albumin 25gm q12h and IV lasix ~1hr post albumin -Urine output over the past 24hours ~1500mL -Albumin 25gm q12h ordered followed by lasix as BP tolerates -PICC line placed by IR due to poor venous access -Monitor I's and O's; Daily weight -CPK downtrending -IR consulted - Dr. Cui -Nephrology consulted - Dr. Ron 2. Sepsis -Afebrile with significant leukocytosis, however her white count is downtrending -Procalcitonin downtrending -Wound culture positive for klebsiella -CT chest/abd/pelvis revealed interstitial and peribronchial thickening with right basilar and middle lobe consolidation; persistent pneumobilia within the left hepatic lobe; see full report -ID consulted - Dr. Banks -Continue with meropenem per ID recommendations 3. Right upper extremity paralysis -CT RUE reviewed; Did not reveal any mass or hematoma involving the brachial plexus, however soft tissue density along plexus possible -RUE sensation/motor function without improvement since admission -RUE venous duplex negative for DVT -No surgical intervention was recommended 4. Acute cholecystitis/CBD dilatation -HIDA scan reviewed; consistent with acute cholecystitis -Abdominal US reviewed; CBD measures 8.6mm, cholelithiasis, gallbladder lesion -CT abd/pelvis reviewed -MRCP reviewed -Patient is s/p cholecystectomy; POD # 5; was originally intubated however extubated successfully in the ICU; will continue to monitor her clinical status post surgery -Continue meropenem per ID recommendations -ID consulted - Dr. Banks -Surgery consulted - Dr. Elias -GI consulted - Dr. Duncan 5. Anemia -Hgb downtrending since admission; patient was transfused 2units pRBC yesterday -1unit pRBC to be transfused today in addition to receiving albumin -Anemia workup reviewed; likely multifactorial secondary to sepsis/anemia of chronic disease/chronic kidney disease -Will continue to trend H/H and transfuse as necessary 6. s/p fall -Cervical, maxillofacial, shoulder and hip/pelvis x-rays negative -CT Head negative for acute intracranial pathology 7. DM type 2 -Humalog low dose ISS -Patient currently NPO -Fingersticks ACHS 8. GI/DVT Prophylaxis -Protonix/SCD's Patient seen, reviewed and case discussed with attending, Dr. Porter <Mark Porter - Last Filed: 08/08/16 08:45> Objective - Vital Signs/Intake and Output Vital Signs (last 24 hours): Temp Pulse Resp BP Pulse Ox 98.4 F 82 22 147/58 L 94 L 07/13/16 08:15 07/13/16 08:15 07/13/16 08:15 07/13/16 08:15 07/13/16 08:15 - Labs Labs: 07/13/16 06:40 07/13/16 06:40 PT 10.4 Seconds (9.9-11.8) 07/02/16 05:30 INR 0.96 (0.93-1.08) 07/02/16 05:30 APTT 39.0 Seconds (23.7-30.8) H 07/02/16 11:00 Attending/Attestation - Attestation I have personally seen and examined this patient.: Yes I have fully participated in the care of the patient.: Yes I have reviewed all pertinent clinical information, including history, physical exam and plan: Yes Notes (Text): 08/08/16 08:45 Medical record note made by the resident after discussion with my direction and input after the patient was personally seen and examined by me. I have reviewed the chart and agree that the record reflects my personal performance of history, physical, data review and course for the patient that I have planned.
--- NOTE | 2016-07-09 13:30 | CT ---
PROCEDURE: CT-guided right upper quadrant abscess drain HISTORY: Recent cholecystectomy. 6 cm fluid collection in the gallbladder fossa. Evaluate for abscess. PHYSICIAN(S): Nathan Cui MD. TECHNIQUE: The relative risks and indications for the procedure were explained to the patient and informed consent obtained. The patient was placed in a supine position on the CT scanner and preliminary images through the upper abdomen performed. This revealed a 3.7 x 6.2 cm fluid collection with punctate air in the gallbladder fossa.. A right anterior oblique approach was selected and the area prepped/draped in the usual sterile fashion. Conscious sedation and monitoring were provided throughout the procedure by nurse. An 18-gauge needle was advanced into the collection and 10 cc of serosanguineous fluid aspirated. A specimen was sent to microbiology. A 0.035 J-wire was coiled within the fluid collection. Sequential dilatation was performed with subsequent placement of a 12 [place] pigtail drain. Approximately 30 cc of serosanguineous fluid was aspirated. The cavity was lavaged with normal saline. The drain was sutured to the skin and placed to gravity drainage. Completion images were performed. The patient tolerated the procedure well. IMPRESSION: 1. CT-guided right upper quadrant abscess drainage as described above.
[2016-07-09] MEDS: Albuterol 0.083% Inhal Sol (2.5 mg/3 mL) UD IH PRN (17:33)
--- NOTE | 2016-07-09 19:21 | CP.PCM.PN ---
Subjective - Date & Time of Evaluation Date of Evaluation: 07/09/16 Time of Evaluation: 10:25 - Subjective Subjective: Patient is for CT-guided drainage of fluid collection in gallbladder fossa. Afebrile overnight. Objective - Vital Signs/Intake and Output Vital Signs (last 24 hours): Temp Pulse Resp BP Pulse Ox 97.9 F 90 18 104/50 L 95 07/09/16 18:14 07/09/16 18:14 07/09/16 18:14 07/09/16 18:14 07/09/16 16:00 Intake and Output: 07/09/16 07/10/16 18:59 06:59 Intake Total 1110 Output Total 1000 Balance 110 - Medications Medications: Current Medications Albuterol Sulfate (Albuterol 0.083% Inhal Lorri (2.5 Mg/3 Ml) Ud) 2.5 mg IH [id number] Last Admin: 07/09/16 14:02 Dose: Not Given Albuterol Sulfate (Albuterol 0.083% Inhal Lorri (2.5 Mg/3 Ml) Ud) 2.5 mg IH Q3 PRN PRN Reason: SOB Last Admin: 07/09/16 17:33 Dose: 2.5 mg Benzocaine/Menthol (Cepacol Sore Throat) 1 adin MT Q2H PRN PRN Reason: Sore Throat Docusate Sodium (Colace) 100 mg PO BID [facility] Last Admin: 07/09/16 17:47 Dose: 100 mg Ferrous Sulfate (Feosol) 324 mg PO BID [facility] Last Admin: 07/09/16 17:48 Dose: 324 mg Guaifenesin/Dextromethorphan (Robitussin Dm) 5 ml PO Q4H PRN PRN Reason: Cough Last Admin: 07/09/16 12:38 Dose: 5 ml Heparin Sodium (Porcine) (Heparin) 5,000 units SC Q12 [facility] PRN Reason: Protocol Last Admin: 07/09/16 13:48 Dose: Not Given Meropenem 250 mg/ Sodium (Chloride) 100 mls @ 100 mls/hr IVPB Q12H [facility] PRN Reason: Protocol Stop: 07/13/16 09:46 Last Admin: 07/09/16 13:51 Dose: 100 mls/hr Insulin Human Lispro (Humalog Low) 0 units SC ACHS [facility] PRN Reason: Protocol Last Admin: 07/09/16 12:29 Dose: Not Given Levothyroxine Sodium (Synthroid) 75 mcg PO 0630 [facility] Last Admin: 07/08/16 07:05 Dose: 75 mcg Metoclopramide HCl (Reglan) 10 mg IV ONCE PRN PRN Reason: Nausea/Vomiting Midodrine (Proamatine) 10 mg PO Q8H [facility] Last Admin: 07/09/16 16:10 Dose: 10 mg Nystatin (Nystop Topical Powder) 0 gm TOP BID [facility] Last Admin: 07/09/16 17:50 Dose: 1 applic Ondansetron HCl (Zofran Inj) 4 mg IVP Q6H PRN PRN Reason: Nausea/Vomiting Last Admin: 06/30/16 12:15 Dose: 4 mg Pantoprazole Sodium (Protonix Inj) 40 mg IVP DAILY [facility] Last Admin: 07/09/16 12:37 Dose: 40 mg - Labs Labs: 07/09/16 06:30 07/09/16 06:30 PT 10.4 Seconds (9.9-11.8) 07/02/16 05:30 INR 0.96 (0.93-1.08) 07/02/16 05:30 APTT 39.0 Seconds (23.7-30.8) H 07/02/16 11:00 - Constitutional Appears: Non-toxic, No Acute Distress - Head Exam Head Exam: NORMAL INSPECTION - ENT Exam ENT Exam: Mucous Membranes Moist - Neck Exam Neck Exam: absent: Lymphadenopathy, Meningismus - Respiratory Exam Respiratory Exam: Decreased Breath Sounds - Cardiovascular Exam Cardiovascular Exam: +S1, +S2 - GI/Abdominal Exam GI & Abdominal Exam: Soft. absent: Tenderness Assessment and Plan - Assessment and Plan (Free Text) Plan: Assessment severe sepsis with acute renal failure in a patient with acute severe rhabdomyolysis, consider secondary to acute gangrenous cholecystitis/ biliary tree infection in a patient with biliary tree stones S/P lap cholecystectomy POD #6, growing Kleb oxytoca, pneumoniae, and Proteus mirabilis - patient with probable gallbladder fossa abscess post-op S/P CT-guided drainage today HTN chronic CHF DM morbid obesity with BMI 52 hypothyroidism S/P hysterectomy S/P bilateral knee replacements dyslipidemia history of TIA dyslipidemia history of chronic lower extremity cellulitis degenerative arthritis Plan Continue Meropenem and gave a dose of Daptomycin - will repeat blood cx today and check cx of the abscess Will continue to monitor clinically and trend WBC count
--- NOTE | 2016-07-09 19:34 | PN ---
DATE: 07/09/2016 GASTROINTESTINAL FOLLOWUP Seen and examined at the bedside earlier this afternoon. She just returned from a CT-guided abscess drain, IIR. She is a little bit drowsy, but arousable. No reports of nausea, vomiting or abdominal pain. VITAL SIGNS: Temperature is 98.8, blood pressure is 111/41, respirations 18, pulse of 88, 94 on room air. LABORATORY DATA: WBC is 18.0, H is 8.3 and 24.0, platelets of 276. Chem: Sodium is 136, K 4.2, BUN is 80, creatinine is 3.3. Total bilirubin is 1.3, AST 57, ALT , alk phos is 76, total creatini ne kinase is 305. PHYSICAL EXAMINATION: HEENT: Sclera is anicteric. NECK: Supple. CARDIAC: S1, S2. LUNGS: Decreased breath sounds but good air entry, did not hear any wheezing or rales. ABDOMEN: With bowel sounds, softly obese. Her incision with ilir is open to air. No drain. She has the drainage tube draining serosanguineous fluid. EXTREMITIES: Positive pedal edema, as well as upper extremity edema. ASSESSMENT: A 75-year-old female with history of CHF, diabetes, hypothyroidism, history of DVT and C BD stones, admitted with status post fall with rhabdomyolysis, acute renal failure and right arm para lysis, had acute cholecystitis, status post cholecystectomy. The patient also with sepsis, status po st CT-guided drain of abscess, anemia. The patient is status post CT-guided right upper quadrant abs cess with drain. PLAN: The patient remains on IV antibiotics, meropenem. Continue GI prophylaxis, Protonix, is on DV T prophylaxis, heparin, on iron supplements, getting stool softener. Monitor electrolytes and CBC. Continue surgical ID followup. The patient was seen and case discussed with Dr. Duncan. Sweetie BUNN cc: [id number] TT: 07/09/2016 19:33:23 Confirmation # [id number] Dictation # [id number] maribell
[2016-07-10] MEDS: Albuterol 0.083% Inhal Sol (2.5 mg/3 mL) UD IH SCH ×4 (01:26→19:41)
[2016-07-10] MEDS: guaiFENesin DM 100 mg-10 mg/5 ml UD PO PRN (02:53)
[2016-07-10] MEDS: Levothyroxine 75 MCG TAB PO SCH ×2 (05:37→05:44)
--- NOTE | 2016-07-10 06:13 | CP.PCM.PN ---
Subjective - Date & Time of Evaluation Date of Evaluation: 07/09/16 Time of Evaluation: 18:00 - Subjective Subjective: Patient seen this morning just after CT guided RUQ drainage; denies shortness of breath; tolerating liquid diet; Objective - Vital Signs/Intake and Output Vital Signs (last 24 hours): Temp Pulse Resp BP Pulse Ox 97.9 F 90 18 104/50 L 95 07/09/16 18:14 07/09/16 18:14 07/09/16 18:14 07/09/16 18:14 07/09/16 16:00 Intake and Output: 07/09/16 07/10/16 18:59 06:59 Intake Total 1110 675 Output Total 1000 600 Balance 110 75 - Medications Medications: Current Medications Albuterol Sulfate (Albuterol 0.083% Inhal Lorri (2.5 Mg/3 Ml) Ud) 2.5 mg IH [id number] [facility] Last Admin: 07/10/16 01:26 Dose: Not Given Albuterol Sulfate (Albuterol 0.083% Inhal Lorri (2.5 Mg/3 Ml) Ud) 2.5 mg IH Q3 PRN PRN Reason: SOB Last Admin: 07/09/16 17:33 Dose: 2.5 mg Benzocaine/Menthol (Cepacol Sore Throat) 1 adin MT Q2H PRN PRN Reason: Sore Throat Docusate Sodium (Colace) 100 mg PO BID [facility] Last Admin: 07/09/16 17:47 Dose: 100 mg Ferrous Sulfate (Feosol) 324 mg PO BID [facility] Last Admin: 07/09/16 17:48 Dose: 324 mg Guaifenesin/Dextromethorphan (Robitussin Dm) 5 ml PO Q4H PRN PRN Reason: Cough Last Admin: 07/10/16 02:53 Dose: 5 ml Heparin Sodium (Porcine) (Heparin) 5,000 units SC Q12 [facility] PRN Reason: Protocol Last Admin: 07/09/16 23:00 Dose: 5,000 units Meropenem 250 mg/ Sodium (Chloride) 100 mls @ 100 mls/hr IVPB Q12H [facility] PRN Reason: Protocol Stop: 07/13/16 09:46 Last Admin: 07/09/16 22:19 Dose: 100 mls/hr Insulin Human Lispro (Humalog Low) 0 units SC ACHS [facility] PRN Reason: Protocol Last Admin: 07/09/16 19:30 Dose: Not Given Levothyroxine Sodium (Synthroid) 75 mcg PO 0630 [facility] Last Admin: 07/10/16 05:44 Dose: Not Given Midodrine (Proamatine) 10 mg PO Q8H [facility] Last Admin: 07/10/16 00:13 Dose: 10 mg Nystatin (Nystop Topical Powder) 0 gm TOP BID [facility] Last Admin: 07/09/16 17:50 Dose: 1 applic Ondansetron HCl (Zofran Inj) 4 mg IVP Q6H PRN PRN Reason: Nausea/Vomiting Last Admin: 06/30/16 12:15 Dose: 4 mg Pantoprazole Sodium (Protonix Inj) 40 mg IVP DAILY [facility] Last Admin: 07/09/16 12:37 Dose: 40 mg - Labs Labs: 07/09/16 06:30 07/09/16 06:30 PT 10.4 Seconds (9.9-11.8) 07/02/16 05:30 INR 0.96 (0.93-1.08) 07/02/16 05:30 APTT 39.0 Seconds (23.7-30.8) H 07/02/16 11:00 - Constitutional Appears: Well, No Acute Distress - Head Exam Head Exam: NORMAL INSPECTION - Eye Exam Eye Exam: absent: Scleral icterus - ENT Exam ENT Exam: Mucous Membranes Moist - Neck Exam Neck Exam: Normal Inspection - Respiratory Exam Additional comments: Mild basal rhales; not tachypneic; coughing with congested upper airway sounds; - Cardiovascular Exam Cardiovascular Exam: REGULAR RHYTHM, +S1, +S2 - GI/Abdominal Exam GI & Abdominal Exam: Soft. absent: Distended - Exam Additional comments: Briones in place; - Extremities Exam Additional comments: Marked bilateral leg edema; - Neurological Exam Neurological Exam: Alert, Awake - Psychiatric Exam Psychiatric exam: Normal Affect, Normal Mood - Skin Skin Exam: Warm. absent: Cyanosis Assessment and Plan (1) Acute renal failure Assessment & Plan: DIMITRY due to ATN from rhabdo; now non-oliguric; serum creatinine at relative plateau since past 3 daysmay ; appears close to renal recovery but concern for poor renal perfusion with persistently low diastolic BP and low/normal SBP in the setting of ongoing sepsis; BP not improved despite getting 2 u prbc and on IV albumin; respiratory status relatively stable on 2L O2 via NC; stable lytes; no indication for HD; -continue to keep volume replete -will restart IVF after 3rd unit prbc infused -will likely d/c HD cath tomorrow if serum creatinine shows significant decrease Status: Acute (2) Rhabdomyolysis Assessment & Plan: Due to R arm muscle injury; hypocalcemia resolved, continue to monitor level; Status: Acute (3) Sepsis Assessment & Plan: In the setting of cholecystitis, now s/p cholecystitis, RUQ fluid drainage today also; persistent leukocytosis, modestly improved today; ID escalating IV abx today with daptomycin in the setting of a persistently vasodilated state that is hindering renal recovery; -continue to dose abx for CrCl < 20 mL/min -continue midodrine Status: Acute (4) Anemia Assessment & Plan: Getting 3rd u prbc this evening; will f/u morning cbc for appropriate response; Status: Acute
[2016-07-10] MEDS ORDERED: Sodium Chloride 0.9% 1,000 ML IV SCH ×5 (06:30→19:13)
[2016-07-10 06:40] LABS: BASO # 0.05 K/mm3 (0.0-2.0); BASO % 0.3 % (0.0-3.0); EOS # 0.6 (0.0-0.7); EOS % 3.2 % (1.5-5.0); GRAN # 14.69 (1.4-6.5); GRAN % 85.7 % (50.0-68.0); HEMATOCRIT 26.7 % (36.0-48.0); LYMPH # 1.1 (1.2-3.4); LYMPH % 6.2 % (22.0-35.0); MEAN CELL VOLUME 90.2 fL (80.0-105.0); MEAN CORPUSCULAR HEMOGLOBIN 31.1 pg (25.0-35.0); MEAN CORPUSCULAR HGB CONC 34.5 g/dl (31.0-37.0); MEAN PLATELET VOLUME 9.7 fl (7.0-11.0); MONO # 0.8 (0.1-0.6); MONO % 4.6 % (1.0-6.0); PLATELET COUNT 295 10^3/uL (120.0-450.0); WHITE BLOOD COUNT 17.2 10^3/ul (4.5-11.0)
[2016-07-10 07:02] LABS: CALCIUM 8.5 mg/dL (8.4-10.5); TOTAL PROTEIN 5.6 g/dL (5.8-8.3)
[2016-07-10 07:48] LABS: ADD MANUAL DIFF? NO
--- NOTE | 2016-07-10 08:59 | PN ---
DATE: 07/10/2016 SUBJECTIVE: The patient appears very comfortable this morning. She is not short of breath at rest. PHYSICAL EXAMINATION: VITAL SIGNS: Temperature is 97.9, pulse 90, respirations 18, blood pressure 104 /50. Oxygen saturation on nasal cannula is 95%. HEENT: Normocephalic. Less ecchymosis -- right facial area. No JVD. CARDIOVASCULAR: Systolic ejection murmur at the lower left sternal border. No S3 gallop. LUNGS: Decreased breath sounds at the bases. Very minimal/less rhonchi. No wheezing. EXTREMITIES: Positive for edema. No cyanosis, no clubbing. Calves are nontender to palpation. GASTROINTESTINAL: Abdomen is soft. It is not distended and nontender to palpation. Bowel sounds are positive. There is an intraabdominal catheter in place. SKIN: Improving cellulitic changes on the anterior aspects of both legs. No rashes. NEUROLOGIC: Limited at the present time. IMPRESSION: 1. Acute rhabdomyolysis. Status post fall. 2. Acute renal failure. 3. Sepsis syndrome. Intraabdominal collection. 4. Acute cholecystitis. Status post cholecystectomy. 5. Anemia. 6. Mild bronchospasm. PLAN: The patient appears very comfortable this morning. She is not short of breath at rest. She states she is feeling much better overall. On physical exam, her bronchospasm continues to resolve. In addition, the alveolar- arterial gradient also continues to resolve. I will continue with the current nebulizer treatments, incentive spirometry, and chest percussion therapy for now. Hopefully, the patient will be out of bed today. I did discuss this issue with the nurse at length. I would continue with the antibiotic coverage as per infectious disease. Input by Dr. Good is noted. The patient is status post intra-abdominal drainage procedure by Dr. Nathan Cui. Input by Dr. Cui is noted. Repeat a.m. labs are pending. Clinical status of the patient is certainly improved -- compared to last week. However, again, the overall status /prognosis of this patient remains very guarded. I will discuss the above with Dr. Porter. Lionel Sheehan MD cc: [phone] TT: 07/10/2016 08:58:47 Confirmation # [id number] Dictation # [id number] en DAMIAN
[2016-07-10] MEDS: Insulin Lispro (humaLOG) LOW Coverage SC SCH ×5 (09:22→21:31)
--- NOTE | 2016-07-10 10:04 | RAD ---
HISTORY: CHF signs COMPARISON: 07/08/2016 FINDINGS: LUNGS: No active pulmonary disease. PLEURA: No significant pleural effusion identified, no pneumothorax apparent. CARDIOVASCULAR: Cardiomegaly and moderate vascular congestion unchanged OSSEOUS STRUCTURES: No significant abnormalities. VISUALIZED UPPER ABDOMEN: Normal. OTHER FINDINGS: None. IMPRESSION: Cardiomegaly and moderate vascular congestion unchanged
[2016-07-10] MEDS ORDERED: Acetylcysteine 20% Inhal Sol (30ml) IH SCH (11:00)
[2016-07-10] MEDS: Nystatin-Triamcinolone Cream(30 gm) TOP SCH ×2 (11:51→17:19)
[2016-07-10] MEDS: Nystatin 100,000 Units/gm Topical Pow(15 gm) TOP SCH ×2 (11:51→17:19)
--- NOTE | 2016-07-10 12:40 | CP.PCM.PN ---
<Luis Conde - Last Filed: 07/10/16 19:25> Subjective - Date & Time of Evaluation Date of Evaluation: 07/10/16 Time of Evaluation: 12:37 - Subjective Subjective: Medicine progress note - Luis Conde PGY 1 Patient seen and examined at bedside this morning. No acute overnight events or new complaints. Patients urine output substantially improved and her white count is downtrending today. Denies chest pain, palpitations, SOB. Objective - Vital Signs/Intake and Output Vital Signs (last 24 hours): Temp Pulse Resp BP Pulse Ox 98.6 F 71 22 129/50 L 94 L 07/10/16 07:30 07/10/16 07:30 07/10/16 07:30 07/10/16 07:30 07/10/16 07:30 Intake and Output: 07/10/16 07/10/16 06:59 18:59 Intake Total 675 Output Total 1000 Balance -325 - Medications Medications: Current Medications Acetylcysteine (Acetylcysteine 20%) 3 ml IH BID [facility] Albuterol Sulfate (Albuterol 0.083% Inhal Lorri (2.5 Mg/3 Ml) Ud) 2.5 mg IH [id number] [facility] Last Admin: 07/10/16 07:38 Dose: 2.5 mg Albuterol Sulfate (Albuterol 0.083% Inhal Lorri (2.5 Mg/3 Ml) Ud) 2.5 mg IH Q3 PRN PRN Reason: SOB Last Admin: 07/09/16 17:33 Dose: 2.5 mg Benzocaine/Menthol (Cepacol Sore Throat) 1 adin MT Q2H PRN PRN Reason: Sore Throat Docusate Sodium (Colace) 100 mg PO BID [facility] Last Admin: 07/10/16 09:19 Dose: 100 mg Ferrous Sulfate (Feosol) 324 mg PO BID [facility] Last Admin: 07/10/16 09:20 Dose: 324 mg Guaifenesin/Dextromethorphan (Robitussin Dm) 5 ml PO Q4H PRN PRN Reason: Cough Last Admin: 07/10/16 02:53 Dose: 5 ml Heparin Sodium (Porcine) (Heparin) 5,000 units SC Q12 [facility] PRN Reason: Protocol Last Admin: 07/10/16 09:20 Dose: 5,000 units Meropenem 250 mg/ Sodium (Chloride) 100 mls @ 100 mls/hr IVPB Q12H [facility] PRN Reason: Protocol Stop: 07/13/16 09:46 Last Admin: 07/10/16 09:36 Dose: 100 mls/hr Sodium Chloride (Sodium Chloride 0.9%) 1,000 mls @ 40 mls/hr IV .Q24H [facility] Last Admin: 07/10/16 11:51 Dose: 40 mls/hr Insulin Human Lispro (Humalog Low) 0 units SC ACHS [facility] PRN Reason: Protocol Last Admin: 07/10/16 11:50 Dose: Not Given Levothyroxine Sodium (Synthroid) 75 mcg PO 0630 [facility] Last Admin: 07/10/16 05:44 Dose: Not Given Midodrine (Proamatine) 10 mg PO Q8H [facility] Last Admin: 07/10/16 09:20 Dose: 10 mg Nystatin (Nystop Topical Powder) 0 gm TOP BID [facility] Last Admin: 07/10/16 11:51 Dose: 1 applic Nystatin/Triamcinolone Acetonide (Nystatin/Triamcinolone Cream) 0 ea TOP BID [facility] Last Admin: 07/10/16 11:51 Dose: 1 applic Ondansetron HCl (Zofran Inj) 4 mg IVP Q6H PRN PRN Reason: Nausea/Vomiting Last Admin: 06/30/16 12:15 Dose: 4 mg Pantoprazole Sodium (Protonix Inj) 40 mg IVP DAILY [facility] Last Admin: 07/10/16 09:20 Dose: 40 mg - Labs Labs: 07/10/16 06:00 07/10/16 06:00 PT 10.4 Seconds (9.9-11.8) 07/02/16 05:30 INR 0.96 (0.93-1.08) 07/02/16 05:30 APTT 39.0 Seconds (23.7-30.8) H 07/02/16 11:00 - Constitutional Appears: Non-toxic, No Acute Distress - Head Exam Head Exam: ATRAUMATIC, NORMAL INSPECTION, NORMOCEPHALIC - Eye Exam Eye Exam: EOMI, PERRL - ENT Exam ENT Exam: Mucous Membranes Moist - Respiratory Exam Respiratory Exam: Wheezes. absent: Clear to Ausculation Bilateral, Rales, Rhonchi - Cardiovascular Exam Cardiovascular Exam: RRR, +S1, +S2. absent: Gallop, Rubs - GI/Abdominal Exam GI & Abdominal Exam: Distended, Soft, Tenderness. absent: Firm, Guarding, Rigid , Rebound - Extremities Exam Additional comments: RUE: no sensation; motor function 0/5; radial pulse 1/4; unchanged from prior exams LUE: sensation intact; motor function 5/5; radial pulse 2/4 bilateral lower extremities: 1+ edema; motor function 5/5; sensation intact - Neurological Exam Neurological Exam: Alert, Awake, Oriented x3 - Psychiatric Exam Psychiatric exam: Normal Affect, Normal Mood - Skin Additional comments: chronic venous stasis 2+ pitting edema Assessment and Plan - Assessment and Plan (Free Text) Plan: 75yo Female with history of CHF, DM2, TIA, hypothyroidism, chronic LE edema, history of DVT and CBD stones admitted to the ICU for rhabdomyolysis, acute Kidney injury, right arm paralysis and acute cholecystitis 1. Rhabdomyolysis/DIMITRY on CKD/Acute tubular necrosis -Patient received 4 liters of fluid in the ED and was aggressively hydrated with NS @ 200cc/hr on presentation -Patient was subsequently given IV albumin 25gm q12h and IV lasix ~1hr post albumin -Urine output over the past 24hours has significantly improved and as per nephrology she is likely in the polyuric phase of acute tubular necrosis -Albumin 25gm q12h ordered followed by lasix as BP tolerates -PICC line placed by IR due to poor venous access -Monitor I's and O's; Daily weight -CPK downtrending -IR consulted - Dr. Cui -Nephrology consulted - Dr. Ron 2. Sepsis -Afebrile with significant leukocytosis, however her white count continues to be downtrending -Procalcitonin downtrended -Wound culture positive for klebsiella -CT chest/abd/pelvis revealed interstitial and peribronchial thickening with right basilar and middle lobe consolidation; persistent pneumobilia within the left hepatic lobe; see full report -ID consulted - Dr. Banks -Continue with meropenem per ID recommendations; She was given a dose of daptomycin as well 3. Right upper extremity paralysis -CT RUE reviewed; Did not reveal any mass or hematoma involving the brachial plexus, however soft tissue density along plexus possible -RUE sensation/motor function without improvement since admission -RUE venous duplex negative for DVT -No surgical intervention was recommended 4. Acute cholecystitis/CBD dilatation -HIDA scan reviewed; consistent with acute cholecystitis -Abdominal US reviewed; CBD measures 8.6mm, cholelithiasis, gallbladder lesion -CT abd/pelvis reviewed -MRCP reviewed -Patient is s/p cholecystectomy; POD # 7 -Surgical drains in place -ID consulted - Dr. Banks -Surgery consulted - Dr. Elias -GI consulted - Dr. Duncan 5. Anemia -Hgb downtrending since admission; patient was transfused a total of 3units pRBC -Anemia workup reviewed; likely multifactorial secondary to sepsis/anemia of chronic disease/chronic kidney disease -Will continue to trend H/H and transfuse as necessary 6. s/p fall -Cervical, maxillofacial, shoulder and hip/pelvis x-rays negative -CT Head negative for acute intracranial pathology 7. DM type 2 -Humalog low dose ISS -Diet as tolerated -Fingersticks ACHS 8. GI/DVT Prophylaxis -Protonix/Heparin Disposition: Despite this patients improvement over the course of the last several days, her prognosis remains guarded. We will continue to monitor her closely and manage any problems that evolve from her multiple comorbidities. Patient seen, reviewed and case discussed with attending, Dr. Beltran <Roosevelt Beltran - Last Filed: 07/11/16 09:03> Objective - Vital Signs/Intake and Output Vital Signs (last 24 hours): Temp Pulse Resp BP Pulse Ox 97.9 F 81 22 153/57 H 93 L 07/11/16 07:30 07/11/16 07:30 07/11/16 07:30 07/11/16 07:30 07/11/16 07:30 Intake and Output: 07/11/16 07/11/16 06:59 18:59 Intake Total 720 Output Total 700 Balance 20 - Medications Medications: Current Medications Acetylcysteine (Acetylcysteine 20%) 3 ml IH BID [facility] Last Admin: 07/11/16 07:20 Dose: 3 ml Albuterol Sulfate (Albuterol 0.083% Inhal Lorri (2.5 Mg/3 Ml) Ud) 2.5 mg IH [id number] [facility] Last Admin: 07/11/16 07:20 Dose: 2.5 mg Albuterol Sulfate (Albuterol 0.083% Inhal Lorri (2.5 Mg/3 Ml) Ud) 2.5 mg IH Q3 PRN PRN Reason: SOB Last Admin: 07/11/16 05:01 Dose: 2.5 mg Benzocaine/Menthol (Cepacol Sore Throat) 1 adin MT Q2H PRN PRN Reason: Sore Throat Docusate Sodium (Colace) 100 mg PO BID [facility] Last Admin: 07/10/16 17:16 Dose: 100 mg Ferrous Sulfate (Feosol) 324 mg PO BID [facility] Last Admin: 07/10/16 17:17 Dose: 324 mg Guaifenesin/Dextromethorphan (Robitussin Dm) 5 ml PO Q4H PRN PRN Reason: Cough Last Admin: 07/10/16 02:53 Dose: 5 ml Heparin Sodium (Porcine) (Heparin) 5,000 units SC Q12 [facility] PRN Reason: Protocol Last Admin: 07/10/16 21:34 Dose: 5,000 units Meropenem 250 mg/ Sodium (Chloride) 100 mls @ 100 mls/hr IVPB Q12H [facility] PRN Reason: Protocol Stop: 07/13/16 09:46 Last Admin: 07/10/16 21:34 Dose: 100 mls/hr Sodium Chloride (Sodium Chloride 0.9%) 1,000 mls @ 80 mls/hr IV .[id number] [facility] Last Admin: 07/11/16 08:46 Dose: Not Given Insulin Human Lispro (Humalog Low) 0 units SC ACHS [facility] PRN Reason: Protocol Last Admin: 07/11/16 08:42 Dose: Not Given Levothyroxine Sodium (Synthroid) 75 mcg PO 0630 [facility] Last Admin: 07/11/16 06:18 Dose: 75 mcg Midodrine (Proamatine) 10 mg PO Q8H [facility] Last Admin: 07/11/16 08:45 Dose: Not Given Nystatin (Nystop Topical Powder) 0 gm TOP BID [facility] Last Admin: 07/10/16 17:19 Dose: 1 applic Nystatin/Triamcinolone Acetonide (Nystatin/Triamcinolone Cream) 0 ea TOP BID [facility] Last Admin: 07/10/16 17:19 Dose: 1 applic Ondansetron HCl (Zofran Inj) 4 mg IVP Q6H PRN PRN Reason: Nausea/Vomiting Last Admin: 06/30/16 12:15 Dose: 4 mg Pantoprazole Sodium (Protonix Inj) 40 mg IVP DAILY [facility] Last Admin: 07/10/16 09:20 Dose: 40 mg - Labs Labs: 07/10/16 06:00 07/10/16 06:00 PT 10.4 Seconds (9.9-11.8) 07/02/16 05:30 INR 0.96 (0.93-1.08) 07/02/16 05:30 APTT 39.0 Seconds (23.7-30.8) H 07/02/16 11:00 Attending/Attestation - Attestation I have personally seen and examined this patient.: Yes I have fully participated in the care of the patient.: Yes I have reviewed all pertinent clinical information, including history, physical exam and plan: Yes Notes (Text): 07/11/16 09:02 Medical record note made by the resident after discussion with my direction and input after the patient was personally seen and examined by me. I have reviewed the chart and agree that the record accurately reflects by personal performance of the history, physical exam, data review, and medical decision-making, in the course for the patient. I have also personally directed the plan of care.
--- NOTE | 2016-07-10 12:47 | CP.PCM.PN ---
Subjective - Date & Time of Evaluation Date of Evaluation: 07/10/16 Time of Evaluation: 12:43 - Subjective Subjective: Gen Sx: Dr Elias Pt s&E. Reports feeling much better. Has more energy. Denies SOB or chest pain. Denies abdominal pain. Tolerating FLD would like something more solid IR drain placed yesterday, draining serosanguinous fluid. WBC trending down Objective - Vital Signs/Intake and Output Vital Signs (last 24 hours): Temp Pulse Resp BP Pulse Ox 98.6 F 71 22 129/50 L 94 L 07/10/16 07:30 07/10/16 07:30 07/10/16 07:30 07/10/16 07:30 07/10/16 07:30 Intake and Output: 07/10/16 07/10/16 06:59 18:59 Intake Total 675 Output Total 1000 Balance -325 - Medications Medications: Current Medications Acetylcysteine (Acetylcysteine 20%) 3 ml IH BID [facility] Albuterol Sulfate (Albuterol 0.083% Inhal Lorri (2.5 Mg/3 Ml) Ud) 2.5 mg IH [id number] [facility] Last Admin: 07/10/16 07:38 Dose: 2.5 mg Albuterol Sulfate (Albuterol 0.083% Inhal Lorri (2.5 Mg/3 Ml) Ud) 2.5 mg IH Q3 PRN PRN Reason: SOB Last Admin: 07/09/16 17:33 Dose: 2.5 mg Benzocaine/Menthol (Cepacol Sore Throat) 1 adin MT Q2H PRN PRN Reason: Sore Throat Docusate Sodium (Colace) 100 mg PO BID [facility] Last Admin: 07/10/16 09:19 Dose: 100 mg Ferrous Sulfate (Feosol) 324 mg PO BID [facility] Last Admin: 07/10/16 09:20 Dose: 324 mg Guaifenesin/Dextromethorphan (Robitussin Dm) 5 ml PO Q4H PRN PRN Reason: Cough Last Admin: 07/10/16 02:53 Dose: 5 ml Heparin Sodium (Porcine) (Heparin) 5,000 units SC Q12 [facility] PRN Reason: Protocol Last Admin: 07/10/16 09:20 Dose: 5,000 units Meropenem 250 mg/ Sodium (Chloride) 100 mls @ 100 mls/hr IVPB Q12H [facility] PRN Reason: Protocol Stop: 07/13/16 09:46 Last Admin: 07/10/16 09:36 Dose: 100 mls/hr Sodium Chloride (Sodium Chloride 0.9%) 1,000 mls @ 40 mls/hr IV .Q24H [facility] Last Admin: 07/10/16 11:51 Dose: 40 mls/hr Insulin Human Lispro (Humalog Low) 0 units SC ACHS [facility] PRN Reason: Protocol Last Admin: 07/10/16 11:50 Dose: Not Given Levothyroxine Sodium (Synthroid) 75 mcg PO 0630 [facility] Last Admin: 07/10/16 05:44 Dose: Not Given Midodrine (Proamatine) 10 mg PO Q8H [facility] Last Admin: 07/10/16 09:20 Dose: 10 mg Nystatin (Nystop Topical Powder) 0 gm TOP BID [facility] Last Admin: 07/10/16 11:51 Dose: 1 applic Nystatin/Triamcinolone Acetonide (Nystatin/Triamcinolone Cream) 0 ea TOP BID [facility] Last Admin: 07/10/16 11:51 Dose: 1 applic Ondansetron HCl (Zofran Inj) 4 mg IVP Q6H PRN PRN Reason: Nausea/Vomiting Last Admin: 06/30/16 12:15 Dose: 4 mg Pantoprazole Sodium (Protonix Inj) 40 mg IVP DAILY [facility] Last Admin: 07/10/16 09:20 Dose: 40 mg - Labs Labs: 07/10/16 06:00 07/10/16 06:00 PT 10.4 Seconds (9.9-11.8) 07/02/16 05:30 INR 0.96 (0.93-1.08) 07/02/16 05:30 APTT 39.0 Seconds (23.7-30.8) H 07/02/16 11:00 - Constitutional Appears: Non-toxic, No Acute Distress - Respiratory Exam Respiratory Exam: absent: Accessory Muscle Use, Respiratory Distress - Cardiovascular Exam Cardiovascular Exam: absent: Tachycardia - GI/Abdominal Exam GI & Abdominal Exam: Soft. absent: Distended, Firm, Guarding, Tenderness Additional comments: 40cc serosanguinous from IR 10 cc with tinge of bile from CHRISTIANO - Neurological Exam Neurological Exam: Alert, Awake Assessment and Plan - Assessment and Plan (Free Text) Assessment: 75F POD#7 s/p open janie, POD#1 s/p IR drain Plan: cont drains to self-suction x 2 cont abx per ID leukocytosis improving encourage OOB and incentive spirometer d/w Dr Curt Hernández, DO, PGY2
--- NOTE | 2016-07-10 15:41 | PN ---
DATE: 07/10/2016 The patient is in bed in no acute distress. PHYSICAL EXAMINATION: VITAL SIGNS: Temperature is 98, blood pressure is 120/70, respiratory rate of 16. HEENT: Unremarkable. NECK: Supple. LUNGS: Decreased breath sounds. HEART: Normal S1, S2. ABDOMEN: Soft, nontender. LABORATORY EXAMINATION: Reveals a white count of 17,200. Hemoglobin of 9. The chemistries reveal a BUN of 80, creatinine of 2.8. MICROBIOLOGY: Noted. ASSESSMENT AND PLAN: A 75-year-old female seen earlier in room 568, bed 2. 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 Status post laparoscopic cholecystectomy, post-procedure day #7 with Klebsiella pneumoniae and Proteus with status post CAT scan-guided drainage and with hypertensi on. Meropenem. Review of orders reveals meropenem to be active. Overall prognosis quite poor. Ang Banks MD cc: [id number] TT: 07/10/2016 15:41:24 Confirmation # [id number] Dictation # [id number] sn
--- NOTE | 2016-07-10 16:21 | PN ---
DATE: 07/10/2016 The patient is afebrile. Blood pressure 130/50. There is a minimum drainage from the drains. Liver functions remains normal. The white count is trending down at 17.2. We will follow peripherally wi thout surgical intent. The drain that I placed intraoperatively had a ____ of bile in it and we will follow without surgical intent. Miguel Ángel Elias MD cc: [phone] TT: 07/10/2016 16:20:18 Confirmation # [id number] Dictation # [id number] sn
--- NOTE | 2016-07-10 17:15 | PN ---
DATE: 07/10/2016 Seen and examined at the bedside earlier today. The patient had a CT-guided abscess drain yesterday, is draining serosanguineous that drained about 5 mL. The patient denies any nausea, vomiting, or ab dominal pain. VITAL SIGNS: Temperature 98.6, blood pressure 129/50, pulse rate 71, respirations . LABORATORIES: WBC is 17.2, H and H is 9.2 and 26.7, platelets of 295. Sodium is 137, K is 4.0, BUN is 80, creatinine is 2.8. Total bilirubin is 1.0, AST 49, ALT 55, alkaline phosphatase is 67. PHYSICAL EXAMINATION: HEENT: Sclera is anicteric. NECK: Supple. CARDIAC: S1, S2. LUNG SOUNDS: With few rhonchi. Did not hear any wheezing. ABDOMEN: With bowel sounds. It is soft. Positive drainage tube and incision with ilir is open t o air, no drainage noted or erythema. Not much tenderness. EXTREMITIES: Positive bilateral edema as well as the upper extremity. Her right arm negative sensat ion. The patient went for a chest x-ray this morning and that showed cardiomegaly and moderate vascular co ngestion, unchanged. ASSESSMENT: The patient with multiple medical problems. She came in status post fall with rhabdomyo lysis with acute kidney injury that is now improving. She also has improving sepsis. The patient wi th acute cholecystitis, history of common bile duct dilatation, status post cholecystectomy. The pat ient also with right upper extremity paralysis. The patient had a Doppler of that extremity. It is negative for deep venous thrombosis. Anemia, transaminitis, which is improving, history of diabetes mellitus and status post recent CT-guided abscess drain in right upper quadrant. The patient also wi th congestive heart failure. PLAN: Spoke with surgery. The patient's diet will be advanced. We will change to moderate carbohyd rate, soft, heart healthy diet. Encourage incentive spirometer. Continue bowel regimen. She is on stool softeners. Continue gastrointestinal prophylaxis, Protonix. The patient is also on IV antibio tics of meropenem, on deep venous thrombosis prophylaxis, heparin, on iron supplements and respirator y treatments. As per renal, ID, surgery and pulmonary. The patient was seen and case discussed with Dr. Duncan. Sweetie BUNN cc: [id number] TT: 07/10/2016 17:14:38 Confirmation # [id number] Dictation # [id number] en
[2016-07-10] MEDS: Acetylcysteine 20% Inhal Soln (4ml) IH SCH (19:42)
[2016-07-11] MEDS: Albuterol 0.083% Inhal Sol (2.5 mg/3 mL) UD IH SCH ×4 (01:14→20:54)
[2016-07-11 02:11] LABS: URINE BILIRUBIN NEGATIVE (NEGATIVE); URINE BLOOD MODERATE (NEGATIVE); URINE GLUCOSE (UA) NEGATIVE (NEGATIVE); URINE KETONE NEGATIVE (NEGATIVE); URINE LEUKOCYTE ESTERASE NEGATIVE Leu/uL (NEGATIVE); URINE PROTEIN 30 mg/dL (<30 mg/dL); URINE UROBILINOGEN 0.2 E.U./dL (<1 E.U./dL)
[2016-07-11 02:29] LABS: URINE APPEARANCE SL CLOUDY (CLEAR); URINE COLOR YELLOW (YELLOW)
[2016-07-11 02:33] LABS: URINE BACTERIA FEW (NEG)
[2016-07-11] MEDS: Albuterol 0.083% Inhal Sol (2.5 mg/3 mL) UD IH PRN (05:01)
[2016-07-11] MEDS: Levothyroxine 75 MCG TAB PO SCH (06:18)
[2016-07-11] MEDS: Acetylcysteine 20% Inhal Soln (4ml) IH SCH ×3 (07:20→20:52)
--- NOTE | 2016-07-11 08:31 | PN ---
DATE: 07/11/2016 SUBJECTIVE: The patient appears comfortable this morning. She is not short of breath at rest. PHYSICAL EXAMINATION: VITAL SIGNS: Temperature is 98.7, pulse 80, respirations 18/20, blood pressure 117/44. Oxygen saturation on nasal cannula is 93%-95%. HEENT: Normocephalic. Less ecchymosis -- right facial area. No JVD. CARDIOVASCULAR: Systolic ejection murmur at the lower left sternal border. No S3 gallop. LUNGS: Decreased breath sounds at the bases. Very minimal/less rhonchi. No wheezing. EXTREMITIES: Positive for edema. No cyanosis, no clubbing. Calves are nontender to palpation. GASTROINTESTINAL: Abdomen is soft. It is not distended and it is nontender to palpation. Bowel sounds are positive. There is an intraabdominal catheter in place. SKIN: Improving cellulitic changes on the anterior aspects of both legs. No rashes. NEUROLOGIC: Limited at the present time. IMPRESSION: 1. Acute rhabdomyolysis, status post fall. 2. Acute renal failure. 3. Sepsis syndrome. Intraabdominal collection. 4. Acute cholecystitis. Status post cholecystectomy. 5. Anemia. 6. Mild bronchospasm. PLAN: The patient appears comfortable this morning. She is not short of breath at rest. She does state to feeling much better overall. On physical exam, her bronchospasm continues to resolve. In addition, the alveolar- arterial gradient also continues to resolve. I will continue with the current nebulizer treatments, incentive spirometry, and chest percussion therapy for now. Again, I hope that the patient can be out of bed more often. I would continue with the antibiotic coverage as per infectious disease. There are no temperatures noted. The leukocytosis is resolving. GI and surgical evaluations are also noted. Clinical status of the patient is significantly improved -- compared to last week. However, again, the overall status/ prognosis for this elderly patient -- with multiple medical problems -- remains guarded. I will discuss the above with Dr. Porter. Lionel Sheehan MD cc: [id number] TT: 07/11/2016 08:30:37 Confirmation # [id number] Dictation # [id number] brett SALGADO
[2016-07-11] MEDS: Insulin Lispro (humaLOG) LOW Coverage SC SCH ×4 (08:42→22:40)
--- NOTE | 2016-07-11 08:55 | CP.PCM.PN ---
Subjective - Date & Time of Evaluation Date of Evaluation: 07/11/16 Time of Evaluation: 08:50 - Subjective Subjective: Gen Sx: Dr Elias Pt S&E. Clinically significant improvement. Reports less sob and cough. Denies any abdominal pain. Drain output has been minimal. Making adequate urine, appears to becoming more dilute. Kidney function improving gradually. Pt reports she has been OOB but Pt notes report pt only able to tolerating sitting on end of bed with assistance for no more than 10 minutes. Objective - Vital Signs/Intake and Output Vital Signs (last 24 hours): Temp Pulse Resp BP Pulse Ox 97.9 F 81 22 153/57 H 93 L 07/11/16 07:30 07/11/16 07:30 07/11/16 07:30 07/11/16 07:30 07/11/16 07:30 Intake and Output: 07/11/16 07/11/16 06:59 18:59 Intake Total 720 Output Total 700 Balance 20 - Medications Medications: Current Medications Acetylcysteine (Acetylcysteine 20%) 3 ml IH BID [facility] Last Admin: 07/11/16 07:20 Dose: 3 ml Albuterol Sulfate (Albuterol 0.083% Inhal Lorri (2.5 Mg/3 Ml) Ud) 2.5 mg IH [id number] [facility] Last Admin: 07/11/16 07:20 Dose: 2.5 mg Albuterol Sulfate (Albuterol 0.083% Inhal Lorri (2.5 Mg/3 Ml) Ud) 2.5 mg IH Q3 PRN PRN Reason: SOB Last Admin: 07/11/16 05:01 Dose: 2.5 mg Benzocaine/Menthol (Cepacol Sore Throat) 1 adin MT Q2H PRN PRN Reason: Sore Throat Docusate Sodium (Colace) 100 mg PO BID [facility] Last Admin: 07/10/16 17:16 Dose: 100 mg Ferrous Sulfate (Feosol) 324 mg PO BID [facility] Last Admin: 07/10/16 17:17 Dose: 324 mg Guaifenesin/Dextromethorphan (Robitussin Dm) 5 ml PO Q4H PRN PRN Reason: Cough Last Admin: 07/10/16 02:53 Dose: 5 ml Heparin Sodium (Porcine) (Heparin) 5,000 units SC Q12 [facility] PRN Reason: Protocol Last Admin: 07/10/16 21:34 Dose: 5,000 units Meropenem 250 mg/ Sodium (Chloride) 100 mls @ 100 mls/hr IVPB Q12H [facility] PRN Reason: Protocol Stop: 07/13/16 09:46 Last Admin: 07/10/16 21:34 Dose: 100 mls/hr Sodium Chloride (Sodium Chloride 0.9%) 1,000 mls @ 80 mls/hr IV .[id number] [facility] Last Admin: 07/11/16 08:46 Dose: Not Given Insulin Human Lispro (Humalog Low) 0 units SC ACHS [facility] PRN Reason: Protocol Last Admin: 07/11/16 08:42 Dose: Not Given Levothyroxine Sodium (Synthroid) 75 mcg PO 0630 [facility] Last Admin: 07/11/16 06:18 Dose: 75 mcg Midodrine (Proamatine) 10 mg PO Q8H [facility] Last Admin: 07/11/16 08:45 Dose: Not Given Nystatin (Nystop Topical Powder) 0 gm TOP BID [facility] Last Admin: 07/10/16 17:19 Dose: 1 applic Nystatin/Triamcinolone Acetonide (Nystatin/Triamcinolone Cream) 0 ea TOP BID [facility] Last Admin: 07/10/16 17:19 Dose: 1 applic Ondansetron HCl (Zofran Inj) 4 mg IVP Q6H PRN PRN Reason: Nausea/Vomiting Last Admin: 06/30/16 12:15 Dose: 4 mg Pantoprazole Sodium (Protonix Inj) 40 mg IVP DAILY [facility] Last Admin: 07/10/16 09:20 Dose: 40 mg - Labs Labs: 07/10/16 06:00 07/10/16 06:00 PT 10.4 Seconds (9.9-11.8) 07/02/16 05:30 INR 0.96 (0.93-1.08) 07/02/16 05:30 APTT 39.0 Seconds (23.7-30.8) H 07/02/16 11:00 - Constitutional Appears: No Acute Distress - Respiratory Exam Respiratory Exam: Rhonchi (b/l). absent: Accessory Muscle Use, Respiratory Distress - Cardiovascular Exam Cardiovascular Exam: absent: Tachycardia - GI/Abdominal Exam GI & Abdominal Exam: Soft. absent: Distended, Firm, Tenderness Additional comments: 5cc out of each drain dressing changed now c/d/i - Extremities Exam Extremities Exam: absent: Pedal Edema - Neurological Exam Neurological Exam: Alert, Awake, Oriented x3 - Psychiatric Exam Psychiatric exam: Normal Affect, Normal Mood - Skin Skin Exam: Normal Color, Warm Assessment and Plan - Assessment and Plan (Free Text) Assessment: 75F POD#8 open cholecystectomy Plan: cont to trend leukocytosis (trending down) cont abx per ID cont maintain drain RUQ continue aggressive PT cont mgmt DIMITRY per renal pt condition improving but remains guarded d/w Dr Curt Hernández, DO, PGY2
[2016-07-11 09:11] LABS: ADD MANUAL DIFF? NO
[2016-07-11 09:15] LABS: BASO # 0.02 K/mm3 (0.0-2.0); BASO % 0.1 % (0.0-3.0); EOS # 0.4 (0.0-0.7); EOS % 2.6 % (1.5-5.0); GRAN % 86.5 % (50.0-68.0); HEMATOCRIT 27.5 % (36.0-48.0); LYMPH # 1.1 (1.2-3.4); LYMPH % 6.9 % (22.0-35.0); MEAN CELL VOLUME 91.1 fL (80.0-105.0); MEAN CORPUSCULAR HEMOGLOBIN 31.1 pg (25.0-35.0); MEAN CORPUSCULAR HGB CONC 34.2 g/dl (31.0-37.0); MEAN PLATELET VOLUME 9.8 fl (7.0-11.0); MONO # 0.6 (0.1-0.6); MONO % 3.9 % (1.0-6.0); PLATELET COUNT 308 10^3/uL (120.0-450.0); RED CELL DISTRIBUTION WIDTH 16.1 % (11.5-14.5); WHITE BLOOD COUNT 15.6 10^3/ul (4.5-11.0)
[2016-07-11 09:22] LABS: ALB/GLOB RATIO 0.9 (1.1-1.8); BILIRUBIN,TOTAL 0.8 mg/dL (0.2-1.3); CALCIUM 8.3 mg/dL (8.4-10.5); POTASSIUM 3.8 mmol/L (3.6-5.0); TOTAL PROTEIN 5.5 g/dL (5.8-8.3)
--- NOTE | 2016-07-11 09:32 | CP.PCM.PN ---
Subjective - Date & Time of Evaluation Date of Evaluation: 07/10/16 Time of Evaluation: 09:45 - Subjective Subjective: Patient denies shortness of breath, not in pain; still no feeling in L arm; Objective - Vital Signs/Intake and Output Vital Signs (last 24 hours): Temp Pulse Resp BP Pulse Ox 97.9 F 81 22 153/57 H 93 L 07/11/16 07:30 07/11/16 07:30 07/11/16 07:30 07/11/16 07:30 07/11/16 07:30 Intake and Output: 07/11/16 07/11/16 06:59 18:59 Intake Total 720 Output Total 700 Balance 20 - Medications Medications: Current Medications Acetylcysteine (Acetylcysteine 20%) 3 ml IH BID [facility] Last Admin: 07/11/16 07:20 Dose: 3 ml Albuterol Sulfate (Albuterol 0.083% Inhal Lorri (2.5 Mg/3 Ml) Ud) 2.5 mg IH [id number] [facility] Last Admin: 07/11/16 07:20 Dose: 2.5 mg Albuterol Sulfate (Albuterol 0.083% Inhal Lorri (2.5 Mg/3 Ml) Ud) 2.5 mg IH Q3 PRN PRN Reason: SOB Last Admin: 07/11/16 05:01 Dose: 2.5 mg Benzocaine/Menthol (Cepacol Sore Throat) 1 adin MT Q2H PRN PRN Reason: Sore Throat Docusate Sodium (Colace) 100 mg PO BID [facility] Last Admin: 07/10/16 17:16 Dose: 100 mg Ferrous Sulfate (Feosol) 324 mg PO BID [facility] Last Admin: 07/10/16 17:17 Dose: 324 mg Guaifenesin/Dextromethorphan (Robitussin Dm) 5 ml PO Q4H PRN PRN Reason: Cough Last Admin: 07/10/16 02:53 Dose: 5 ml Heparin Sodium (Porcine) (Heparin) 5,000 units SC Q12 [facility] PRN Reason: Protocol Last Admin: 07/10/16 21:34 Dose: 5,000 units Meropenem 250 mg/ Sodium (Chloride) 100 mls @ 100 mls/hr IVPB Q12H [facility] PRN Reason: Protocol Stop: 07/13/16 09:46 Last Admin: 07/10/16 21:34 Dose: 100 mls/hr Sodium Chloride (Sodium Chloride 0.9%) 1,000 mls @ 80 mls/hr IV .[id number] [facility] Last Admin: 07/11/16 08:46 Dose: Not Given Insulin Human Lispro (Humalog Low) 0 units SC ACHS [facility] PRN Reason: Protocol Last Admin: 07/11/16 08:42 Dose: Not Given Levothyroxine Sodium (Synthroid) 75 mcg PO 0630 [facility] Last Admin: 07/11/16 06:18 Dose: 75 mcg Midodrine (Proamatine) 10 mg PO Q8H [facility] Last Admin: 07/11/16 08:45 Dose: Not Given Nystatin (Nystop Topical Powder) 0 gm TOP BID [facility] Last Admin: 07/10/16 17:19 Dose: 1 applic Nystatin/Triamcinolone Acetonide (Nystatin/Triamcinolone Cream) 0 ea TOP BID [facility] Last Admin: 07/10/16 17:19 Dose: 1 applic Ondansetron HCl (Zofran Inj) 4 mg IVP Q6H PRN PRN Reason: Nausea/Vomiting Last Admin: 06/30/16 12:15 Dose: 4 mg Pantoprazole Sodium (Protonix Inj) 40 mg IVP DAILY [facility] Last Admin: 07/10/16 09:20 Dose: 40 mg - Labs Labs: 07/11/16 09:00 07/11/16 09:00 PT 10.4 Seconds (9.9-11.8) 07/02/16 05:30 INR 0.96 (0.93-1.08) 07/02/16 05:30 APTT 39.0 Seconds (23.7-30.8) H 07/02/16 11:00 - Constitutional Appears: Well, No Acute Distress - Head Exam Head Exam: NORMAL INSPECTION - Eye Exam Eye Exam: Normal appearance - ENT Exam ENT Exam: Mucous Membranes Moist - Neck Exam Neck Exam: Normal Inspection - Respiratory Exam Respiratory Exam: NORMAL BREATHING PATTERN. absent: Rhonchi, Wheezes, Respiratory Distress Additional comments: Minimal insp rhales; - Cardiovascular Exam Cardiovascular Exam: REGULAR RHYTHM, +S1, +S2 - GI/Abdominal Exam GI & Abdominal Exam: Soft. absent: Distended, Tenderness - Exam Additional comments: cabrera in place at time of exam; - Extremities Exam Additional comments: Marked leg edema bilaterally, unchanged; - Neurological Exam Neurological Exam: Alert, Awake - Psychiatric Exam Psychiatric exam: Normal Affect, Normal Mood - Skin Skin Exam: Normal Color, Warm Assessment and Plan (1) Acute renal failure Assessment & Plan: ATN due to rhabdo, improving; now non-oliguric; UO ~100 cc/hr; first day of significant decrease in serum creatinine after 2 days of relative plateau, corresponds with improvement in BP and sepsis parameters; -monitor for polyuria -continue IVF w/ NS at 80 cc/hr (NS as patient may still have some intravascular volume depletion at indicated by BUN out of proportion to creat) -will d/c HD cath tomorrow as discussed with primary team Status: Acute (2) Rhabdomyolysis Assessment & Plan: Resolving with serum Ca normalized; continue to monitor lytes; Status: Acute (3) Sepsis Assessment & Plan: Leukocytosis improving; given dose of dapto yesterday; continue to dose abx for CrCl < 30 ml/min; Status: Acute (4) Anemia Assessment & Plan: Now s/p 3 u prbc; inadequate rise in Hgb, may partially be due to hemodilution; continue to monitor; repeat iron studies in a few days; Status: Acute
--- NOTE | 2016-07-11 10:30 | PN ---
DATE: 07/11/2016 The patient is in bed in no acute distress, nontoxic. PHYSICAL EXAMINATION: VITAL SIGNS: Temperature is 98, blood pressure is 112/70, respiratory rate of 16. HEENT: Unremarkable. NECK: Supple. LUNGS: Have decreased breath sounds. HEART: Normal S1, S2. ABDOMEN: Soft. LABORATORY EXAMINATION: Reveals the white count is down to 15,600, hemoglobin of 9 and platelets of 308. BUN of 72, creatinine of 2.3 and procalcitonin of 2.63. Urinalysis is unremarkable. Microbiol ogy reveals the patient had a negative urine culture and negative blood cultures. Review of the new swed[place] rs reveals the patient to be on meropenem. ASSESSMENT AND PLAN: A 75-year-old female with severe sepsis, acute renal failure, acute severe rhab domyolysis, acute gangrenous cholecystitis, biliary tree infection, biliary tree stones, status post laparoscopic cholecystectomy, post-procedure day #8 with Klebsiella pneumoniae and Proteus and CAT sc an-guided drainage with a history of hypertension, currently on meropenem. Dr. Eber Hernández's note is reviewed. We will follow the leukocytosis which is down to 15,600 today. Ang Banks MD cc: 350 TT: 07/11/2016 10:29:59 Confirmation # [id number] Dictation # [id number] tn
[2016-07-11] MEDS: Nystatin-Triamcinolone Cream(30 gm) TOP SCH ×2 (10:37→18:50)
[2016-07-11] MEDS: Nystatin 100,000 Units/gm Topical Pow(15 gm) TOP SCH ×2 (10:37→18:50)
--- NOTE | 2016-07-11 11:25 | CP.PCM.PN ---
<Kyle Condewin - Last Filed: 07/11/16 15:13> Subjective - Date & Time of Evaluation Date of Evaluation: 07/11/16 Time of Evaluation: 11:15 - Subjective Subjective: Medicine progress note - Luis Elton PGY 1 Patient seen and examined at bedside this morning. No overnight events or new complaints reported. Her acute tubular necrosis appears to be improving and her leukocytosis is resolving. Discussed with her the current workup/results/plan for today. Encouraged her to work with physical therapy as much as tolerated. She appears to be improving, however given her multiple medical co-morbidities her prognosis remains guarded. Objective - Vital Signs/Intake and Output Vital Signs (last 24 hours): Temp Pulse Resp BP Pulse Ox 97.9 F 81 22 153/57 H 93 L 07/11/16 07:30 07/11/16 07:30 07/11/16 07:30 07/11/16 07:30 07/11/16 07:30 Intake and Output: 07/11/16 07/11/16 06:59 18:59 Intake Total 720 Output Total 700 Balance 20 - Medications Medications: Current Medications Acetylcysteine (Acetylcysteine 20%) 3 ml IH BID [facility] Last Admin: 07/11/16 07:20 Dose: 3 ml Albuterol Sulfate (Albuterol 0.083% Inhal Lorri (2.5 Mg/3 Ml) Ud) 2.5 mg IH [id number] [facility] Last Admin: 07/11/16 07:20 Dose: 2.5 mg Albuterol Sulfate (Albuterol 0.083% Inhal Lorri (2.5 Mg/3 Ml) Ud) 2.5 mg IH Q3 PRN PRN Reason: SOB Last Admin: 07/11/16 05:01 Dose: 2.5 mg Benzocaine/Menthol (Cepacol Sore Throat) 1 adin MT Q2H PRN PRN Reason: Sore Throat Docusate Sodium (Colace) 100 mg PO BID [facility] Last Admin: 07/11/16 10:34 Dose: 100 mg Ferrous Sulfate (Feosol) 324 mg PO BID [facility] Last Admin: 07/11/16 10:36 Dose: 324 mg Guaifenesin/Dextromethorphan (Robitussin Dm) 5 ml PO Q4H PRN PRN Reason: Cough Last Admin: 07/10/16 02:53 Dose: 5 ml Heparin Sodium (Porcine) (Heparin) 5,000 units SC Q12 [facility] PRN Reason: Protocol Last Admin: 07/11/16 10:36 Dose: 5,000 units Meropenem 250 mg/ Sodium (Chloride) 100 mls @ 100 mls/hr IVPB Q12H [facility] PRN Reason: Protocol Stop: 07/13/16 09:46 Last Admin: 07/11/16 10:36 Dose: 100 mls/hr Sodium Chloride (Sodium Chloride 0.9%) 1,000 mls @ 80 mls/hr IV .[id number] [facility] Last Admin: 07/11/16 08:46 Dose: Not Given Insulin Human Lispro (Humalog Low) 0 units SC ACHS [facility] PRN Reason: Protocol Last Admin: 07/11/16 08:42 Dose: Not Given Levothyroxine Sodium (Synthroid) 75 mcg PO 0630 [facility] Last Admin: 07/11/16 06:18 Dose: 75 mcg Midodrine (Proamatine) 10 mg PO Q8H [facility] Last Admin: 07/11/16 08:45 Dose: Not Given Nystatin (Nystop Topical Powder) 0 gm TOP BID [facility] Last Admin: 07/11/16 10:37 Dose: 1 applic Nystatin/Triamcinolone Acetonide (Nystatin/Triamcinolone Cream) 0 ea TOP BID [facility] Last Admin: 07/11/16 10:37 Dose: 1 applic Ondansetron HCl (Zofran Inj) 4 mg IVP Q6H PRN PRN Reason: Nausea/Vomiting Last Admin: 06/30/16 12:15 Dose: 4 mg Pantoprazole Sodium (Protonix Inj) 40 mg IVP DAILY [facility] Last Admin: 07/11/16 10:36 Dose: 40 mg - Labs Labs: 07/11/16 09:00 07/11/16 09:00 PT 10.4 Seconds (9.9-11.8) 07/02/16 05:30 INR 0.96 (0.93-1.08) 07/02/16 05:30 APTT 39.0 Seconds (23.7-30.8) H 07/02/16 11:00 - Constitutional Appears: No Acute Distress - Head Exam Head Exam: ATRAUMATIC, NORMOCEPHALIC - Eye Exam Eye Exam: EOMI, PERRL - ENT Exam ENT Exam: Mucous Membranes Moist - Respiratory Exam Respiratory Exam: Decreased Breath Sounds. absent: Rales, Rhonchi, Wheezes - Cardiovascular Exam Cardiovascular Exam: RRR, +S1, +S2. absent: Gallop, Rubs - GI/Abdominal Exam GI & Abdominal Exam: Distended, Soft, Tenderness. absent: Firm, Guarding, Rigid , Rebound - Extremities Exam Additional comments: 2+pitting edema - Neurological Exam Neurological Exam: Alert, Awake, Oriented x3 - Psychiatric Exam Psychiatric exam: Normal Affect, Normal Mood - Skin Skin Exam: Dry, Warm Additional comments: chronic venous stasis in bilateral lower extremities Assessment and Plan - Assessment and Plan (Free Text) Plan: 75yo Female with history of CHF, DM2, TIA, hypothyroidism, chronic LE edema, history of DVT and CBD stones admitted to the ICU for rhabdomyolysis, acute Kidney injury, right arm paralysis and acute cholecystitis 1. Rhabdomyolysis/DIMITRY on CKD/Acute tubular necrosis -Patient received 4 liters of fluid in the ED and was aggressively hydrated with NS @ 200cc/hr on presentation -Patient was subsequently given IV albumin 25gm q12h and IV lasix ~1hr post albumin -Urine output over the past 24hours has significantly improved and as per nephrology she is likely in the polyuric phase of acute tubular necrosis -Albumin 25gm q12h ordered followed by lasix as BP tolerates -Patient had a dialysis catheter placed by IR and was dialyzed once -per nephrology, no indications for further dialysis and may have the dialysis catheter removed today -PICC line placed by IR due to poor venous access -Monitor I's and O's; Daily weight -CPK downtrending -IR consulted - Dr. Cui -Nephrology consulted - Dr. Ron 2. Sepsis -Afebrile with significant leukocytosis, however her white count continues to be downtrending -Procalcitonin downtrended -Wound culture positive for klebsiella -CT chest/abd/pelvis revealed interstitial and peribronchial thickening with right basilar and middle lobe consolidation; persistent pneumobilia within the left hepatic lobe; see full report -ID consulted - Dr. Banks -Continue with meropenem per ID recommendations; She was given a dose of daptomycin as well 3. Right upper extremity paralysis -CT RUE reviewed; Did not reveal any mass or hematoma involving the brachial plexus, however soft tissue density along plexus possible -RUE sensation/motor function without improvement since admission -RUE venous duplex negative for DVT -No surgical intervention was recommended 4. Acute cholecystitis/CBD dilatation -HIDA scan reviewed; consistent with acute cholecystitis -Abdominal US reviewed; CBD measures 8.6mm, cholelithiasis, gallbladder lesion -CT abd/pelvis reviewed -MRCP reviewed -Patient is s/p cholecystectomy; POD # 8 -Surgical drains in place -ID consulted - Dr. Banks -Surgery consulted - Dr. Elias -GI consulted - Dr. Duncan 5. Anemia -Hgb downtrending since admission; patient was transfused a total of 3units pRBC -Anemia workup reviewed; likely multifactorial secondary to sepsis/anemia of chronic disease/chronic kidney disease -Will continue to trend H/H and transfuse as necessary 6. s/p fall -Cervical, maxillofacial, shoulder and hip/pelvis x-rays negative -CT Head negative for acute intracranial pathology 7. DM type 2 -Humalog low dose ISS -Diet as tolerated -Fingersticks ACHS 8. GI/DVT Prophylaxis -Protonix/Heparin Disposition: Despite this patients improvement over the course of the last several days, her prognosis remains guarded. We will continue to monitor her closely and manage any problems that evolve from her multiple comorbidities. Patient seen, reviewed and case discussed with attending, Dr. Beltran <Roosevelt Beltran - Last Filed: 07/18/16 09:15> Objective - Vital Signs/Intake and Output Vital Signs (last 24 hours): Temp Pulse Resp BP Pulse Ox 98.4 F 82 22 147/58 L 94 L 07/13/16 08:15 07/13/16 08:15 07/13/16 08:15 07/13/16 08:15 07/13/16 08:15 - Labs Labs: 07/13/16 06:40 07/13/16 06:40 PT 10.4 Seconds (9.9-11.8) 07/02/16 05:30 INR 0.96 (0.93-1.08) 07/02/16 05:30 APTT 39.0 Seconds (23.7-30.8) H 07/02/16 11:00 Attending/Attestation - Attestation I have personally seen and examined this patient.: Yes I have fully participated in the care of the patient.: Yes I have reviewed all pertinent clinical information, including history, physical exam and plan: Yes Notes (Text): 07/18/16 09:15 Medical record note made by the resident after discussion with my direction and input after the patient was personally seen and examined by me. I have reviewed the chart and agree that the record accurately reflects by personal performance of the history, physical exam, data review, and medical decision-making, in the course for the patient. I have also personally directed the plan of care.
--- NOTE | 2016-07-11 11:26 | PN ---
DATE: 07/11/2016 SUBJECTIVE: A 75-year-old female with past medical history of hypertension, diabetes, hypothyroidism , lower extremity DVT, admitted with severe rhabdomyolysis, cholecystitis, sepsis, and acute renal fa ilure for which nephrology is following. The patient today reporting no shortness of breath. Tolerating diet. Still no bowel movement. Stil l with no feeling of right upper extremity. PHYSICAL EXAMINATION: VITAL SIGNS: Today, blood pressure 153/57, heart rate 81, respirations 22, temperature 97.9, O2 sat 93% on room air. GENERAL: No distress, conversing coherently in full sentences. HEENT: Moist mucous membranes. Nonicteric. CHEST: Minimal basilar rales present. No rhonchi, no wheezes. CARDIOVASCULAR: S1, S2 normal, no murmurs, no gallops, no rubs. GASTROINTESTINAL: Abdomen soft, nontender, nondistended. GENITOURINARY: Fully in place. EXTREMITIES: Markedly edematous legs. PSYCHIATRIC: Normal mood, normal affect. SKIN: Warm to touch. No cyanosis. LABORATORY DATA: WBC 15.6, hemoglobin 9.4, hematocrit 27.5, platelet 308. Chemistry panel: Sodium 137, potassium 3.8, chloride 107, bicarb 22, BUN 72, creatinine 2.3, glucose 108, calcium 8.3. UA: Leukocyte esterase negative, 1-3 WBCs per high powered failed. ASSESSMENT: Acute renal failure, acute kidney injury on chronic kidney disease stage III, acute tubular necrosis secondary to severe rhabdomyolysis, now resolving. Urine output 500 mL over 3 hours this morning. Blood pressure overall improved. Improvement in renal function appears to correlate with improved bl ood pressure and improvement of sepsis parameters. No more indication for considering hemodialysis a ny more. PLAN: 1. Continue IV fluids with normal saline at 80 mL per hour in order to avoid volume depletion (would generally use half NS in this state ATN recovery, but due to markedly low serum albumin and patient' s persistently low diastolic blood pressures would like to use isotonic fluids in order to keep as mu ch of it intravascularly as possible). 2. Discontinue hemodialysis catheter today (this is a source of impending infection). 3. Rhabdomyolysis secondary to right arm muscle injury, resolving. No longer hypocalcemic. Monitor electrolytes. 4. Sepsis, now status post cholecystectomy as well as right upper ordered fluid drainage done 2 days ago. Leukocytosis improving. Still on daptomycin 1 gram q.12 hours. Blood pressure much improved. We will hold midodrine. May need to soon redose meropenem for creatinine clearance greater than 60 . Timmy Ariadne TO cc: [id number] TT: 07/11/2016 11:25:29 Confirmation # [id number] Dictation # [id number] jn
[2016-07-11] MEDS ORDERED: Lidocaine 2% Inj (20ml) ONE (16:47)
[2016-07-11] MEDS ORDERED: Midazolam 2 MG/2 ML VIAL ONE (17:11)
--- NOTE | 2016-07-11 17:22 | PN ---
DATE: 07/11/2016 Seen and examined at the bedside earlier today. No reports of shortness of breath or chest pain. Sh sharron does look a bit better. Nursing staff reported that her insertion site at the drain was bleeding. The patient denies any discomfort. VITAL SIGNS: Temperature is 97.9, blood pressure 153/57, pulse 81, respirations 22, 92 on room air. LABORATORY DATA: WBC is 15.6, H and H is 9.4 and 27.5, platelet count is 308. Sodium 137, K 3.8, BU N is 72, creatinine is 2.3, total bilirubin 0.8, AST is 33, ALT 49, alkaline phosphatase is 75. This is improved. Urinalysis was done and was negative for leuko esterase, showed moderate blood, ____ PHYSICAL EXAMINATION: HEENT: Sclera is anicteric. NECK: Supple. CARDIAC: S1, S2. LUNGS: With decreased breath sounds. No rales or wheeze. ABDOMEN: With bowel sounds, softly distended. She does have some tenderness at the right upper quad rant drainage bag with a dressing. No rebound or guarding. EXTREMITIES: Positive for edema, upper and lower. NEUROLOGIC: Awake, alert, and oriented. ASSESSMENT: Rhabdomyolysis, right arm paralysis, acute cholecystitis, status post laparoscopic cholec ystectomy. She is also status post CT-guided drain for right upper quadrant abscess, acute kidney in jury which is improving, right arm paralysis, improving sepsis, removal of dialysis catheter, history of congestive heart failure, diabetes mellitus type 2, hypothyroidism, history of deep venous thromb osis, anemia, guaiac negative. PLAN: Continue bowel regimen. She is on stool softeners. She is getting iron supplement. Continue GI prophylaxis, Protonix. The patient is on IV antibiotics of meropenem, on DVT prophylaxis with amalia rincon. Continue surgical followup, renal and pulmonary. The patient was seen and case discussed forrest Duncan. Sweetie Reece ONI cc: [id number] TT: 07/11/2016 17:20:55 Confirmation # [id number] Dictation # [id number] jesus
--- NOTE | 2016-07-11 18:08 | VASCULAR ---
PROCEDURE: Removal of tunneled right IJ dialysis catheter. CLINICAL HISTORY: Rhabdomyolysis. Acute renal failure. Renal function is improving. Remove tunneled dialysis catheter PHYSICIAN(S): Nathan Cui M.D. TECHNIQUE: The relative risks and indications of the procedure were explained to the patient and consent obtained. The patient was placed supine on the arteriogram table and the tunneled right IJ dialysis catheter prepped and draped in the usual sterile fashion. Conscious sedation and monitoring were provided throughout the procedure by nurse. 1% Xylocaine was used to anesthetize skin and soft tissues along the tunnel. The tunnel and cuff were bluntly dissected. The catheter was removed and pressure applied at the venous insertion site. A single interrupted suture was placed at the exit site. The patient tolerated the procedure well. IMPRESSION: 1. Removal of the patient's tunneled right IJ dialysis catheter.
[2016-07-11] MEDS: guaiFENesin DM 100 mg-10 mg/5 ml UD PO PRN (23:32)
[2016-07-12] MEDS: Albuterol 0.083% Inhal Sol (2.5 mg/3 mL) UD IH SCH ×4 (01:05→19:52)
[2016-07-12] MEDS: Acetylcysteine 20% Inhal Soln (4ml) IH SCH ×3 (07:21→19:53)
--- NOTE | 2016-07-12 07:54 | CP.PCM.PCO ---
Physician Communication Note - Physician Communication Note Physician Communication Note: improved. Plan for LTACH. Surgical drain remains in place at D/C
[2016-07-12 07:59] LABS: ADD MANUAL DIFF? NO
[2016-07-12 08:11] LABS: BASO # 0.02 K/mm3 (0.0-2.0); BASO % 0.1 % (0.0-3.0); EOS # 0.6 (0.0-0.7); EOS % 4.4 % (1.5-5.0); GRAN # 11.25 (1.4-6.5); GRAN % 82.9 % (50.0-68.0); HEMATOCRIT 27.6 % (36.0-48.0); LYMPH # 0.8 (1.2-3.4); MEAN CELL VOLUME 91.7 fL (80.0-105.0); MEAN CORPUSCULAR HEMOGLOBIN 30.9 pg (25.0-35.0); MEAN CORPUSCULAR HGB CONC 33.7 g/dl (31.0-37.0); MEAN PLATELET VOLUME 10.2 fl (7.0-11.0); MONO # 0.9 (0.1-0.6); MONO % 6.6 % (1.0-6.0); PLATELET COUNT 341 10^3/uL (120.0-450.0); RED CELL DISTRIBUTION WIDTH 16.1 % (11.5-14.5); WHITE BLOOD COUNT 13.6 10^3/ul (4.5-11.0)
[2016-07-12] MEDS: Insulin Lispro (humaLOG) LOW Coverage SC SCH ×4 (08:13→22:07)
[2016-07-12 08:25] LABS: ALB/GLOB RATIO 0.8 (1.1-1.8); BILIRUBIN,TOTAL 0.8 mg/dL (0.2-1.3); CALCIUM 8.4 mg/dL (8.4-10.5); POTASSIUM 3.7 mmol/L (3.6-5.0); TOTAL PROTEIN 5.5 g/dL (5.8-8.3)
--- NOTE | 2016-07-12 09:44 | PN ---
DATE: 07/12/2016 I am seeing the patient for Dr. Porter who is off today. I see her resting in bed. She complains of right arm being weak, it is also oozing a little bit, weeping, it is elevated. Nurses are on top of this. She is happy. She is comfortable. She is eating. She is happy about going to subacute re hab tomorrow. PHYSICAL EXAMINATION: VITAL SIGNS: 98.2 temp, 88 pulse, 161/68 blood pressure, 19 respiratory rate, 100% O2 sat on 3 liter s. HEAD: Atraumatic, normocephalic. Throat is moist. NECK: Supple. HEART: Regular rate. LUNGS: Decreased breath sounds bilaterally, with poor inspiration. ABDOMEN: Morbidly, morbidly obese, nontender, positive bowel sounds, normal pericardium. EXTREMITIES: Have swelling especially in the right upper extremity. MEDICATIONS: She is currently on acetylcysteine, albuterol, Cepacol, Colace, Feosol, heparin, insuli n coverage, Merrem IV, nystatin, nystatin powder, ProAmatine, Protonix, guaifenesin, IV fluids at 80 which I will decrease, Synthroid, and Zofran. LABORATORY DATA: She has a 13.6 white count which is coming down with IV antibiotics 9.3, hemoglobin is holding, 27.6, hematocrit, and 341 platelets. She has a 138 sodium, potassium 3.7, BUN 63, creat inine 2.1 improving. GFR is 28, sugar is 115, calcium is 8.4, total bili is 0.8, AST 34, ALT is 47, alk is 96, total protein is 5.5. Urine is down to few bacteria from many. She is improving with IV antibiotics. Stool for occult blood was negative and urine for drug screen was negative. She is being seen by surgery, GI, renal, infectious disease and pulmonary. The plan is for her to go to subacute rehab tomorrow for physical therapy. She had severe sepsis, acute renal failure, acute severe rhabdomyolysis, acute gangrenous cholecystitis, biliary tree infection, biliary tree stone, st atus post laparoscopic cholecystectomy, postop day #9. She had Klebsiella pneumoniae, Proteus and CA T scan guided drainage. She has hypertension. She is on Merrem. She is improving. White count is decreasing. I will decrease the IV fluids to 60 mL an hour, check her labs tomorrow because she is o ozing from the skin and hopefully she will do well at [facility] tomorrow. I will come in tomorrow to discharge. Jayant Tellez DO cc: [id number] TT: 07/12/2016 09:43:50 Confirmation # [id number] Dictation # [id number] jn
[2016-07-12 10:01] VITALS: RESP 22
[2016-07-12] MEDS: Benzocaine/Menthol (Cepacol) Lozenge MT PRN ×2 (10:15→17:13)
--- NOTE | 2016-07-12 10:29 | PN ---
DATE: 07/12/2016 SUBJECTIVE: The patient states that she still has some dyspnea at rest. She is lying in bed. She i s markedly overweight. Her respiratory rate is somewhat rapid. According to the nurse, this is unch anged from her previous status. PHYSICAL EXAMINATION: GENERAL: She is situated in bed as described above. VITAL SIGNS: Show no fever. Her pulse is 80, respiratory rate 20, blood pressure 120/60, O2 sat is 96% on nasal cannula. HEENT: Normocephalic, atraumatic. NECK: No JVD, no lymphadenopathy, no bruit. No thyroid mass. CARDIOVASCULAR: Regular rhythm, S1, S2. Soft systolic ejection murmur at the lower left sternal bor codi. There is no gallop or rub noted. LUNGS: Decreased breath sounds throughout. No rhonchi. No wheezes. Some rales noted at the bases 1/3 up. GASTROINTESTINAL: Soft. Bowel sounds normoactive without mass, guarding, rebound or organomegaly. EXTREMITIES: Reveals no: No clubbing, cyanosis or edema. There is no Homans sign. SKIN: Has cellulitis changes. There is no rash or other excoriations noted. No lymphadenopathy -- there are no lymph nodes palpated in the supraclavicular notch nor in the cervical, inguinal or axill roseann areas. NEUROLOGIC: Difficult to assess at this time. The patient is awake and alert with normal mental sta tus. She is moving all 4 extremities. Further examination is not possible at this time. LABORATORY STUDIES: No new x-ray has been done. CLINICAL IMPRESSION: 1. Rhabdomyolysis, status post fall. 2. Renal failure. 3. Sepsis syndrome. 4. Gallbladder infection? 5. Anemia. 6. Pulmonary vascular congestion secondary to renal failure and fluid retention. No bronchospasm is auscultated at this time. PLAN: Continue evaluation and treatment of the rhabdomyolysis and hopefully the renal insufficiency will improve. The patient needs to continue with supplemental oxygen. There is no need for further pulmonary intervention with regard to bronchodilators, etc. There is no wheezing noted. Rales only. Further diuresis if possible. We will discuss with PMD and consultants to make sure that no additi onal intervention can be done. In addition, the patient's weight is of major importance. She is overweight and probably has signifi cant restrictive lung disease. When she is better, hopefully, she will be able to go on a weight red uction program. Complete pulmonary function studies will be helpful and we will be able to evaluate for further intervention. Rell Woodall MD cc: [id number] TT: 07/12/2016 10:28:49 Confirmation # [id number] Dictation # [id number] jn
[2016-07-12] MEDS: Nystatin-Triamcinolone Cream(30 gm) TOP SCH ×2 (10:53→17:14)
[2016-07-12] MEDS: Nystatin 100,000 Units/gm Topical Pow(15 gm) TOP SCH ×2 (10:54→17:14)
[2016-07-12] MEDS: guaiFENesin DM 100 mg-10 mg/5 ml UD PO PRN ×2 (10:56→17:13)
[2016-07-12] MEDS: Levothyroxine 75 MCG TAB PO SCH (12:11)
--- NOTE | 2016-07-12 12:47 | PN ---
DATE: 07/12/2016 The patient is in bed in no acute distress, nontoxic. PHYSICAL EXAMINATION: VITAL SIGNS: Temperature is 97, blood pressure is 150/60, respiratory rate of 22, heart rate of 94. HEENT: Unremarkable. NECK: Supple. LUNGS: Have decreased breath sounds. HEART: Normal S1, S2. ABDOMEN: Soft, nontender. No rebound or guarding. LABORATORY EXAMINATION: Reveals a white count of 13,600, hemoglobin of 9 and platelets of 341 and BU N of 63, creatinine of 2.1. Blood cultures are negative. Urine cultures are negative. ASSESSMENT AND PLAN: A 75-year-old female with severe sepsis, acute renal failure, acute severe rhab domyolysis, post-procedure day #9 with Klebsiella pneumoniae and Proteus, history of hypertension and currently on meropenem. The patient was seen earlier this morning. She is awake and alert; however , she does not mobilize. She will need physical therapy. She has not mobilized since surgery, curre ntly on meropenem. She will need long-term care and physical therapy. Continue the meropenem. We w ill reorder it. Ang Banks MD cc: [id number] TT: 07/12/2016 12:46:53 Confirmation # [id number] Dictation # [id number] tn
[2016-07-12] MEDS: Sodium Chloride 0.9% 1,000 ML IV SCH (15:39)
--- NOTE | 2016-07-12 23:12 | CP.PCM.PN ---
Subjective - Date & Time of Evaluation Date of Evaluation: 07/12/16 Time of Evaluation: 10:00 - Subjective Subjective: Patient reports feeling better, denies shortness of breath, no pain; still no feeling in L arm; Objective - Vital Signs/Intake and Output Vital Signs (last 24 hours): Temp Pulse Resp BP Pulse Ox 97.5 F L 92 H 22 140/70 97 07/12/16 16:53 07/12/16 16:53 07/12/16 16:53 07/12/16 16:53 07/12/16 16:53 Intake and Output: 07/12/16 07/13/16 18:59 06:59 Intake Total 420 600 Output Total 600 450 Balance -180 150 - Medications Medications: Current Medications Acetylcysteine (Acetylcysteine 20%) 3 ml IH BID [facility] Last Admin: 07/12/16 19:53 Dose: 3 ml Albuterol Sulfate (Albuterol 0.083% Inhal Lorri (2.5 Mg/3 Ml) Ud) 2.5 mg IH [id number] [facility] Last Admin: 07/12/16 19:52 Dose: 2.5 mg Albuterol Sulfate (Albuterol 0.083% Inhal Lorri (2.5 Mg/3 Ml) Ud) 2.5 mg IH Q3 PRN PRN Reason: SOB Last Admin: 07/11/16 05:01 Dose: 2.5 mg Benzocaine/Menthol (Cepacol Sore Throat) 1 adin MT Q2H PRN PRN Reason: Sore Throat Last Admin: 07/12/16 17:13 Dose: 1 adin Docusate Sodium (Colace) 100 mg PO BID [facility] Last Admin: 07/12/16 17:13 Dose: 100 mg Ferrous Sulfate (Feosol) 324 mg PO BID [facility] Last Admin: 07/12/16 17:13 Dose: 324 mg Guaifenesin/Dextromethorphan (Robitussin Dm) 5 ml PO Q4H PRN PRN Reason: Cough Last Admin: 07/12/16 17:13 Dose: 5 ml Heparin Sodium (Porcine) (Heparin) 5,000 units SC Q12 IAIN PRN Reason: Protocol Last Admin: 07/12/16 22:08 Dose: 5,000 units Meropenem 250 mg/ Sodium (Chloride) 100 mls @ 100 mls/hr IVPB Q12H [facility] PRN Reason: Protocol Stop: 07/13/16 09:46 Last Admin: 07/12/16 22:07 Dose: 100 mls/hr Sodium Chloride (Sodium Chloride 0.9%) 1,000 mls @ 60 mls/hr IV .[id number] [facility] Last Admin: 07/12/16 15:39 Dose: 60 mls/hr Insulin Human Lispro (Humalog Low) 0 units SC ACHS [facility] PRN Reason: Protocol Last Admin: 07/12/16 22:07 Dose: Not Given Levothyroxine Sodium (Synthroid) 75 mcg PO 0630 [facility] Last Admin: 07/12/16 12:11 Dose: 75 mcg Nystatin (Nystop Topical Powder) 0 gm TOP BID [facility] Last Admin: 07/12/16 17:14 Dose: 1 applic Nystatin/Triamcinolone Acetonide (Nystatin/Triamcinolone Cream) 0 ea TOP BID [facility] Last Admin: 07/12/16 17:14 Dose: 1 applic Ondansetron HCl (Zofran Inj) 4 mg IVP Q6H PRN PRN Reason: Nausea/Vomiting Last Admin: 06/30/16 12:15 Dose: 4 mg Pantoprazole Sodium (Protonix Inj) 40 mg IVP DAILY [facility] Last Admin: 07/12/16 10:53 Dose: 40 mg - Labs Labs: 07/12/16 07:59 07/12/16 07:59 PT 10.4 Seconds (9.9-11.8) 07/02/16 05:30 INR 0.96 (0.93-1.08) 07/02/16 05:30 APTT 39.0 Seconds (23.7-30.8) H 07/02/16 11:00 - Constitutional Appears: Well, No Acute Distress - Head Exam Head Exam: NORMAL INSPECTION - Eye Exam Eye Exam: Normal appearance - ENT Exam ENT Exam: Mucous Membranes Moist - Neck Exam Neck Exam: Normal Inspection - Respiratory Exam Additional comments: coarse wheezes present, minimal basal crackles; - Cardiovascular Exam Cardiovascular Exam: REGULAR RHYTHM, +S1, +S2 - GI/Abdominal Exam GI & Abdominal Exam: Soft. absent: Distended, Tenderness - Exam Additional comments: Briones in place; - Extremities Exam Additional comments: Moderately edematous legs - Neurological Exam Neurological Exam: Alert, Awake Additional comments: No sensation in L arm - Psychiatric Exam Psychiatric exam: Normal Affect, Normal Mood - Skin Skin Exam: Normal Color, Warm Assessment and Plan (1) Acute renal failure Assessment & Plan: DIMITRY on CKD, due to ATN from rhabdo, resolving; non-oliguric; stable electrolyte and volume status; -continue IVF w/ NS at 60 cc/hr Status: Acute (2) Rhabdomyolysis Status: Resolved (3) Sepsis Assessment & Plan: Resolving; on meropenem 1g q12h, adequately dosed for CrCl 25-50 ml/min; Status: Acute (4) Anemia Assessment & Plan: Stable s/p prbc transfusion; recheck iron studies as outpatient; continue PO iron; Status: Acute (5) HTN (hypertension) Assessment & Plan: BP elevated after previously being borderline hypotensive; was on metoprolol XL 50 mg daily at home; can start at lower dose for now; Status: Acute
[2016-07-13] MEDS: Albuterol 0.083% Inhal Sol (2.5 mg/3 mL) UD IH SCH ×3 (01:40→13:56)
[2016-07-13] MEDS: guaiFENesin DM 100 mg-10 mg/5 ml UD PO PRN ×2 (03:21→12:11)
[2016-07-13] MEDS: Benzocaine/Menthol (Cepacol) Lozenge MT PRN (03:21)
[2016-07-13] MEDS: Levothyroxine 75 MCG TAB PO SCH (05:45)
[2016-07-13] MEDS: Sodium Chloride 0.9% 1,000 ML IV SCH (05:46)
[2016-07-13 06:45] LABS: ADD MANUAL DIFF? NO
[2016-07-13 06:59] LABS: ALB/GLOB RATIO 0.8 (1.1-1.8); BILIRUBIN,TOTAL 0.7 mg/dL (0.2-1.3); CALCIUM 8.8 mg/dL (8.4-10.5); POTASSIUM 3.9 mmol/L (3.6-5.0); TOTAL PROTEIN 5.9 g/dL (5.8-8.3)
[2016-07-13] MEDS: Acetylcysteine 20% Inhal Soln (4ml) IH SCH (07:12)
[2016-07-13 07:15] LABS: BASO # 0.02 K/mm3 (0.0-2.0); BASO % 0.1 % (0.0-3.0); EOS # 0.5 (0.0-0.7); EOS % 3.7 % (1.5-5.0); GRAN # 11.54 (1.4-6.5); HEMATOCRIT 28.3 % (36.0-48.0); LYMPH # 1.1 (1.2-3.4); MEAN CELL VOLUME 92.8 fL (80.0-105.0); MEAN CORPUSCULAR HEMOGLOBIN 31.1 pg (25.0-35.0); MEAN CORPUSCULAR HGB CONC 33.6 g/dl (31.0-37.0); MONO # 0.7 (0.1-0.6); MONO % 5.2 % (1.0-6.0); PLATELET COUNT 386 10^3/uL (120.0-450.0); RED CELL DISTRIBUTION WIDTH 16.2 % (11.5-14.5); WHITE BLOOD COUNT 13.9 10^3/ul (4.5-11.0)
[2016-07-13 08:18] VITALS: BP 147/58; PULSE 82; TEMP 98.4; O2SAT 94
[2016-07-13] MEDS ORDERED: Meropenem 500 MG in Sodium Chloride 0.9% 100 ML IVPB SCH (11:08)
--- NOTE | 2016-07-13 11:39 | PN ---
DATE: 07/13/2016 PULMONARY PROGRESS NOTE ROOM: 568, bed 1. SUBJECTIVE: The patient remains in bed with some degree of dyspnea while sleeping. She remains unchanged from yesterday. Her respiratory rate has slowed, however. After discussion with the nurse, the patient's status has been evaluated. There is no change. Arousing the patient is easy. She is able to talk and communicate, but offers no complaints other than shortness of breath. This is clinically not obvious other than the tachypnea. PHYSICAL EXAMINATION: GENERAL: She is resting comfortably, in no distress. VITAL SIGNS: Show a respiratory rate of 20, her pulse is 80 and blood pressure 122/62, O2 sat 96% on nasal cannula. HEENT: Normocephalic, atraumatic. NECK: No jugular venous distention, no lymphadenopathy, no bruit, no thyroid mass. CARDIOVASCULAR: Regular rhythm, S1, S2. Systolic ejection murmur at the lower left sternal border. No S3 gallop is heard today. LUNGS: Decreased breath sounds at both bases. No rales, rhonchi or wheezes this morning. here are no rales heard on auscultation. Bronchospasm is not noted on auscultation today. GASTROINTESTINAL: Abdomen soft, bowel sounds normoactive without mass, guarding , rebound or organomegaly. EXTREMITIES: Reveal no clubbing, cyanosis or edema. There is no Homans sign. SKIN: Has cellulitis changes as described yesterday. No other problems noted today. LABORATORY STUDIES: No new studies were done since yesterday. CLINICAL IMPRESSION: 1. Status post rhabdomyolysis after a fall. 2. Subsequent renal failure. 3. Sepsis syndrome. 4. Anemia. 5. Pulmonary vascular congestion, secondary to renal failure and fluid retention. This appears to be better today. PLAN: Continue bronchodilators. Continue fluid resuscitation. Defer further renal treatment to nephrology. Followup x-ray in 1-2 days. We will be able to follow closely with you and decide on the need for further intervention. Rell Woodall MD cc: [id number] TT: 07/13/2016 11:38:43 Confirmation # [id number] Dictation # [id number] en [facility]
[2016-07-13] MEDS: Insulin Lispro (humaLOG) LOW Coverage SC SCH (11:45)
[2016-07-13] MEDS ORDERED: Metoprolol Succinate 25 mg XL Tab PO SCH (11:45)
--- NOTE | 2016-07-13 11:58 | PN ---
DATE: 07/13/2016 The patient seen in bed, in no acute distress. PHYSICAL EXAMINATION: VITAL SIGNS: Temperature is 98, blood pressure is 140/50, respiratory rate of 18. HEENT: Unremarkable. NECK: Supple. LUNGS: Have decreased breath sounds. HEART: Normal S1, S2. ABDOMEN: Soft, nontender. LABORATORY EXAMINATION: Reveals a white count of 13,900, hemoglobin of 9, platelets of 386. BUN of 57, creatinine of 1.9. LFTs are noted to be improved. Urinalysis is noted. Stool for occult blood is negative. Microbiology reveals the patient has negative urine culture, negative blood cultures. The bile culture is positive for Klebsiella oxytocia, Klebsiella pneumoniae and Proteus. That is fro m 07/03/2016. Review of orders reveals the patient to be off of antibiotics. The pharmacy has discontinued the bryce openem. Dr. Timmy Ron's note is reviewed. ASSESSMENT AND PLAN: A 75-year-old female with severe sepsis, acute renal failure, acute severe rhab domyolysis, post procedure day #10, Klebsiella pneumoniae and Proteus, history of hypertension and padron d been on meropenem until yesterday. The pharmacy has discontinued the meropenem. The patient had a CAT scan guided drainage of an abscess on the 3rd. The patient had exploratory laparoscopy and atte mpted laparoscopic cholecystectomy, which led to an open cholecystectomy. We will continue the merop enem. Should have a repeat CAT scan to see if the size of the collection is improved. The last CT w as the 3rd. Will make further recommendations. Ang Banks MD cc: 350 TT: 07/13/2016 11:57:21 Confirmation # [id number] Dictation # [id number] en
--- NOTE | 2016-07-13 12:26 | PN ---
DATE: 07/13/2016 The patient reporting no shortness of breath, denies any pain, tolerating diet. Still no feeling in left arm. PHYSICAL EXAMINATION: VITAL SIGNS: This morning, blood pressure 147/58, heart rate 82, respirations 22, temperature 98.4, O2 sat 94% on room air. GENERAL: Drowsy, no distress. HEENT: Moist mucous membranes. Nonicteric. CHEST: Left-sided rales present. Mild scattered wheezes present. CARDIOVASCULAR: S1, S2 normal. No murmurs, no rubs, no gallops. GASTROINTESTINAL: Abdomen soft, nontender, nondistended. GENITOURINARY: Briones in place with about 500 mL urine output over the past 4-5 hours. EXTREMITIES: Moderately edematous legs. PSYCHIATRIC: Normal affect, normal mood. LABORATORIES: This morning, CBC: WBC 13.9, hemoglobin 9.5, hematocrit 28.3, platelets of 386. Chem istry: Sodium 138, potassium 3.9, chloride 108, bicarbonate 21, BUN 57, creatinine 1.9, glucose 122, calcium 8.8, albumin 2.6. ASSESSMENT: 1. Acute renal failure, resolving, secondary to acute tubular necrosis from rhabdomyolysis, nonoligu saima. Stable volume and electrolyte status. The patient is set to be discharged to rehab today, was previously on Lasix at home 40 mg b.i.d. However, would hold off on starting immediately as patient is still coverage from acute renal failure and giving diuretics will induce polyuria and volume deple tion possibly. Will discontinue IV fluids. 2. Sepsis, resolving, secondary to acute cholecystitis, on meropenem 1 gram q. 12 hours, correctly d osed for creatinine clearance between 25 and 50 mL per minute. 3. Anemia. Hemoglobin stable. Status post packed red blood cell transfused. Should recheck iron s tudies as outpatient. Continue p.o. iron. 4. Hypertension. Blood pressure elevated after previously being hypotensive, was on metoprolol XL 2 5 mg b.i.d. at home. Can restart at 12.5 mg daily for now. Timmy Ron MD cc: [id number] TT: 07/13/2016 12:26:22 Confirmation # [id number] Dictation # [id number] en
[2016-07-13] MEDS: Nystatin 100,000 Units/gm Topical Pow(15 gm) TOP SCH (12:37)
[2016-07-13] MEDS: Nystatin-Triamcinolone Cream(30 gm) TOP SCH (12:38)
--- NOTE | 2016-07-13 13:54 | DS ---
She is a patient of Dr. Beltran and Dr. Porter. She is being discharged today from [facility] to [facility] for physical therapy and further care. MEDICATIONS: She is currently going to be sent there on these medications: Acetylcysteine, albutero l, Cepacol, Colace, Feosol, heparin, insulin coverage, nystatin Nystop topical powder, Protonix, Skip tussin, IV fluids, Synthroid and Zofran. PHYSICAL EXAMINATION: VITAL SIGNS: 98.4 temp, 82 pulse, 147/58 blood pressure, 22 respiratory rate, 94% O2 sat on room air . HEENT: Head is atraumatic, normocephalic. HEART: Regular rate. LUNGS: Decreased breath sounds bilaterally. ABDOMEN: Morbidly obese, soft, nontender, positive bowel sounds. EXTREMITIES: Trace edema. LABORATORY DATA: She has a 13.9 white count, 9.5 hemoglobin, 28.3 hematocrit with 386 platelets. e has 138 sodium, potassium 3.9, BUN 57, creatinine 1.9. That is much better than when she came in. GFR is 26, sugar is 122, total bilirubin is 0.7, AST is 29, ALT is 52, alkaline phosphatase 96, all good numbers. Total protein is 5.9. She is here for rhabdomyolysis, acute renal failure which improved, sepsis, acute kidney injury, acut e cholecystectomy, diabetes and fall and anemia. She will follow up with Dr. Porter and Dr. Brandin kaufman at [facility], and she is discharged today. Discussed with the nurse. Jayant Tellez DO cc: [id number] TT: 07/13/2016 13:52:55 tn
--- NOTE | 2016-07-13 22:29 | PN ---
DATE: 07/13/2016 SUBJECTIVE: This patient was seen and evaluated today. The patient is tolerating the diet. PHYSICAL EXAMINATION: VITAL SIGNS: Remains afebrile, blood pressure 140/50, respirations 18. HEENT: Atraumatic, anicteric. NECK: Supple. HEART: S1, S2, regular. LUNGS: Bilateral air entry present. Drains present. LABORATORY DATA: WBC is 13.9, hemoglobin 9, platelets 366. Urine is Gram negative. The patient's b ile culture positive for Klebsiella pneumoniae plus Proteus. IMPRESSION: This 75-year-old patient is admitted with severe rhabdomyolysis, renal failure, with [place] grenous gallbladder, status post cholecystectomy. The patient had a CT-guided drainage of the absces s done. PLAN: Continue the antibiotics as per ID. Continue to closely follow up. Continue the present renee tment. The patient has a history of CBD stone, but MRCP is negative. In the past, had an ERCP and removal o f the stone. The patient's LFTs have been normal. Thank you very much for allowing me to participate in the care of the patient. Kavon Duncan MD cc: [id number] TT: 07/13/2016 22:29:04 Confirmation # [id number] Dictation # [id number] millie
== END 2016-07-13 15:00 | DRG 853 ==
LOC: ED 11:48 → ERH 18:34 → CCU 19:43 → 5RNO 07-07 22:58
PROVIDERS: ADMIT Internal Medicine; ATTEND Internal Medicine
PROC: 0FT40ZZ Resection of Gallbladder, Open Approach (ICD-10-PCS; principal; 2016-07-03 07:30)
PROC: 0FJ44ZZ Inspection of Gallbladder, Percutaneous Endoscopic Approach (ICD-10-PCS; 2016-07-03 07:30)
PROC: 0FB40ZX Excision of Gallbladder, Open Approach, Diagnostic (ICD-10-PCS; 2016-07-03 07:30)
PROC: 05HM33Z Insertion of Infusion Device into Right Internal Jugular Vein, Percutaneous Approach (ICD-10-PCS; 2016-07-04)
PROC: B543ZZA Ultrasonography of Right Jugular Veins, Guidance (ICD-10-PCS; 2016-07-04)
PROC: 5A1D00Z (ICD-10-PCS; 2016-07-05)
PROC: 02HV33Z Insertion of Infusion Device into Superior Vena Cava, Percutaneous Approach (ICD-10-PCS; 2016-07-08)
PROC: B54NZZA Ultrasonography of Left Upper Extremity Veins, Guidance (ICD-10-PCS; 2016-07-08)
PROC: 0W9F30Z Drainage of Abdominal Wall with Drainage Device, Percutaneous Approach (ICD-10-PCS; 2016-07-09)
PROC: 30233N1 Transfusion of Nonautologous Red Blood Cells into Peripheral Vein, Percutaneous Approach (ICD-10-PCS; 2016-07-09)
DX: A41.9 Sepsis, unspecified organism (principal); N17.0 Acute kidney failure with tubular necrosis; J18.9 Pneumonia, unspecified organism; K81.0 Acute cholecystitis; M62.82 Rhabdomyolysis; K68.11 Postprocedural retroperitoneal abscess; E87.2 Acidosis; L03.119 Cellulitis of unspecified part of limb; I13.0 Hypertensive heart and chronic kidney disease with heart failure and stage 1 through stage 4 chronic kidney disease, or unspecified chronic kidney disease; I50.9 Heart failure, unspecified; Z68.42 Body mass index [BMI] 45.0-49.9, adult; K83.8 Other specified diseases of biliary tract; E11.22 Type 2 diabetes mellitus with diabetic chronic kidney disease; S14.3XXA Injury of brachial plexus, initial encounter; E88.09 Other disorders of plasma-protein metabolism, not elsewhere classified; E83.51 Hypocalcemia; M19.90 Unspecified osteoarthritis, unspecified site; Z96.653 Presence of artificial knee joint, bilateral; E78.5 Hyperlipidemia, unspecified; E03.9 Hypothyroidism, unspecified; G83.21 Monoplegia of upper limb affecting right dominant side; D63.8 Anemia in other chronic diseases classified elsewhere; G47.33 Obstructive sleep apnea (adult) (pediatric); N18.3 Chronic kidney disease, stage 3 (moderate); N28.1 Cyst of kidney, acquired; E66.01 Morbid (severe) obesity due to excess calories; R65.20 Severe sepsis without septic shock; E83.39 Other disorders of phosphorus metabolism; J98.01 Acute bronchospasm; W19.XXXA Unspecified fall, initial encounter; R59.9 Enlarged lymph nodes, unspecified; D63.1 Anemia in chronic kidney disease; D50.9 Iron deficiency anemia, unspecified; B96.1 Klebsiella pneumoniae [K. pneumoniae] as the cause of diseases classified elsewhere; B96.4 Proteus (mirabilis) (morganii) as the cause of diseases classified elsewhere; Z53.31 Laparoscopic surgical procedure converted to open procedure; Y92.009 Unspecified place in unspecified non-institutional (private) residence as the place of occurrence of the external cause; Z86.73 Personal history of transient ischemic attack (TIA), and cerebral infarction without residual deficits; Z86.718 Personal history of other venous thrombosis and embolism; Z79.84 Long term (current) use of oral hypoglycemic drugs; Z79.82 Long term (current) use of aspirin; Z87.891 Personal history of nicotine dependence

== ENCOUNTER 2016-07-24 13:22 | Inpatient (IN) | payer MEDICARE, BC ==
[2016-07-24] MEDS ORDERED: Albuterol-Ipratrop 3 mg / 0.5 (3 ml) UD IH ONE (14:30)
[2016-07-25 01:39] LABS: ALB/GLOB RATIO 0.9 (1.1-1.8); ALKALINE PHOSPHATASE 115 U/L (38-133); ALT/SGPT 36 U/L (7-56); AST/SGOT 80 U/L (15-39); BILIRUBIN,TOTAL 0.6 mg/dL (0.2-1.3); BLOOD UREA NITROGEN 39 mg/dL (7-21); CARBON DIOXIDE 30 mmol/L (21-33); CHLORIDE 100 mmol/L (98-107); GFR AFRICAN-AMERICAN 48; GLUCOSE,RANDOM 93 mg/dL (70-110); POTASSIUM 4.5 mmol/L (3.6-5.0); SODIUM 137 mmol/L (132-148); TOTAL PROTEIN 6.7 g/dL (5.8-8.3)
[2016-07-25 01:56] LABS: AMYLASE 60 U/L (35-125); LIPASE 66 U/L (23-300)
[2016-07-25 01:57] LABS: TROPONIN I < 0.01 ng/mL
[2016-07-25] MEDS ORDERED: Albuterol-Ipratrop 3 mg / 0.5 (3 ml) UD IH PRN (02:15)
[2016-07-25 02:17] LABS: PH,URINE >=9.0 (4.7-8.0); URINE BILIRUBIN NEGATIVE (NEGATIVE); URINE BLOOD TRACE-LYSED (NEGATIVE); URINE GLUCOSE (UA) NEGATIVE (NEGATIVE); URINE KETONE NEGATIVE (NEGATIVE); URINE LEUKOCYTE ESTERASE TRACE Leu/uL (NEGATIVE); URINE PROTEIN TRACE mg/dL (<30 mg/dL); URINE UROBILINOGEN 0.2 E.U./dL (<1 E.U./dL)
[2016-07-25 02:28] LABS: URINE COLOR LIGHT YELLOW (YELLOW)
[2016-07-25 02:29] LABS: URINE APPEARANCE SL CLOUDY (CLEAR)
[2016-07-25 02:31] LABS: URINE EPITHELIAL CELLS 0 - 2 /hpf (0-5)
--- NOTE | 2016-07-25 02:31 | CP.PCM.HP ---
<DainaDiego - Last Filed: 07/25/16 04:32> History of Present Illness - History of Present Illness History of Present Illness: 75 y/o F with PMH of CHF, DVT, TIA, HTN, DM2, HLD, Hypothyroidism, Chronic lower extremity cellulitis, arthritis, RLE DVT, and Right Brachial plexus injury presents to ED after being sent in from her [facility] for productive cough for over 1 week. Pt was recently admitted for severe rhabdomylolysis s/p fall at home. Pt also developed a right brachial plexus injury after being on her right arm for a prolonged period of time. Pt is now unable to move right arm and has occasional numbness and tingling in her right arm. Pt was [facility]c to [facility] for further [facility]. Pt presents today after a week of productive cough and shortness of breath at [facility]. Pt states she has not been feeling well lately. Although records from [facility] indicate productive cough, pt denies any current symptoms or pain. Much of prior medical history is gathered from previous medical records. Denies CP, SOB, N/V/D, dysuria, headache. PMHx: CHF, DVT, TIA, HTN, DM2, HLD, Hypothyroidism, Chronic lower extremity cellulitis, arthritis, RLE DVT, Right brachial plexus injury PSHx: Hysterectomy, B/L knee replacements Social Hx: Former tobacco use. 1 ppd x 30 years. Occasional alcohol use and denies illicit drug use. Allergies: NKDA Medications: See MAR Present on Admission - Present on Admission Any Indicators Present on Admission: No Review of Systems - Constitutional Constitutional: Weakness. absent: Fever - EENT Eyes: absent: Blurred Vision, Change in Vision Nose/Mouth/Throat: absent: Nasal Congestion, Nasal Discharge - Cardiovascular Cardiovascular: absent: Chest Pain, Irregular Heart Rhythm - Respiratory Respiratory: absent: Cough, Dyspnea - Gastrointestinal Gastrointestinal: absent: Abdominal Pain, Diarrhea, Vomiting - Genitourinary Genitourinary: absent: Dysuria, Hematuria - Integumentary Integumentary: absent: New Lesions, Rash - Neurological Neurological: Numbness, Tingling. absent: Syncope - Hematologic/Lymphatic Hematologic: absent: Easy Bleeding, Easy Bruising Past Patient History - Infectious Disease Hx of Infectious Diseases: None - Past Medical History & Family History Past Medical History?: Yes - Past Social History Smoking Status: Former Smoker (>30 pack years 1 PPD, quit when 43 y/o) - CARDIAC Hx Congestive Heart Failure: Yes Hx Hypertension: Yes - NEUROLOGICAL Hx Paralysis: No Hx Transient Ischemic Attacks (TIA): Yes - ENDOCRINE/METABOLIC Hx Diabetes Mellitus Type 1: Yes - HEMATOLOGICAL/ONCOLOGICAL Hx Blood Transfusions: Yes Hx Blood Transfusion Reaction: No - INTEGUMENTARY Hx Cellulitis: Yes (BL LE) Other/Comment: cellulitis bilateral lower legs - MUSCULOSKELETAL/RHEUMATOLOGICAL Hx Musculoskeletal Disorders: Yes Hx Degenerative Joint Disease: Yes - GASTROINTESTINAL Hx Gastrointestinal Disorders: Yes (GI BLEED) - GENITOURINARY/GYNECOLOGICAL Hx Genitourinary Disorders: No Hx Reproductive Disorders: No - PSYCHIATRIC Hx Psychophysiologic Disorder: No Hx Emotional Abuse: No Hx Physical Abuse: No Hx Substance Use: No - SURGICAL HISTORY Hx Surgeries: Yes - ANESTHESIA Hx Anesthesia Reactions: No Hx Malignant Hyperthermia: No Meds Allergies/Adverse Reactions: Allergies Allergy/AdvReac Type Severity Reaction Status Date / Time No Known Allergies Allergy Verified 06/29/16 12:08 Physical Exam - Constitutional Appears: Non-toxic, No Acute Distress - Head Exam Head Exam: ATRAUMATIC, NORMAL INSPECTION, NORMOCEPHALIC - Eye Exam Eye Exam: EOMI, Normal appearance - ENT Exam ENT Exam: Mucous Membranes Dry, Normal Exam - Neck Exam Neck exam: Positive for: Normal Inspection. Negative for: Lymphadenopathy - Respiratory Exam Respiratory Exam: NORMAL BREATHING PATTERN. absent: Rhonchi, Wheezes Additional comments: Crackles heard at b/l bases - Cardiovascular Exam Cardiovascular Exam: RRR, +S1, +S2 Additional comments: Removal of tunnel catheter suture in place - GI/Abdominal Exam GI & Abdominal Exam: Normal Bowel Sounds, Soft. absent: Tenderness - Extremities Exam Extremities exam: Negative for: calf tenderness Additional comments: B/l lower extremity anasarca - Neurological Exam Neurological exam: Alert, CN II-XII Intact, Oriented x3 Additional comments: Unable to move right arm. Sensation deficits from right shoulder downward. - Psychiatric Exam Psychiatric exam: Normal Affect, Normal Mood - Skin Skin Exam: Dry, Intact, Normal Color Results - Labs Result Diagrams: 07/24/16 15:25 Labs: Laboratory Results - last 24 hr 07/24/16 15:25 Sodium 137 Potassium 4.5 Chloride 100 Carbon Dioxide 30 Anion Gap 12 BUN 39 H Creatinine 1.3 Est GFR ( Amer) 48 Est GFR (Non-Af Amer) 40 Random Glucose 93 Calcium 11.0 H Total Bilirubin 0.6 AST 80 H ALT 36 Alkaline Phosphatase 115 Lactate Dehydrogenase 565 Total Creatine Kinase 106 Troponin I < 0.01 D Total Protein 6.7 Albumin 3.1 Globulin 3.6 Albumin/Globulin Ratio 0.9 L Amylase 60 Lipase 66 Assessment & Plan - Assessment and Plan (Free Text) Plan: 75 y/o F with PMH of CHF, DVT, TIA, HTN, DM2, HLD, Hypothyroidism, Chronic lower extremity cellulitis, arthritis, RLE DVT, and Right Brachial plexus injury presents with UTI and productive cough for 1 week. On admission, lactate and WBC are within normal limits. Will follow urine culture closely. Pt was also suspicious for possible PE and underwent a V/Q scan which showed low probability for PE. Pt will also be diuresed secondary to anasarca. CT chest/ abdomen/pelvis significant for no consolidation in the lungs along with multifocal groundglass opacities likely secondary to scar atelectasis and under respiration. 1. UTI Rocephin Follow urine culture Follow blood culture Change cabrera catheter 2. Productive cough/SOB BNP within normal limits Lasix 40 mg IV daily NC prn Monitor electrolytes 3. HTN BP stable in ED Continue Metoprolol 4. IDDM ISS 5. Hypothyroidism Continue Levothyroxine 6. PPX Protonix Heparin Daina, PGY-1 <Roosevelt Beltran - Last Filed: 08/10/16 19:00> Results - Vital Signs Recent Vital Signs: Last Vital Signs Temp 99.3 F 07/31/16 07:56 Pulse 113 H 07/31/16 07:56 Resp 22 07/31/16 07:56 BP 140/70 07/31/16 10:34 Pulse Ox 95 07/31/16 07:56 - Labs Result Diagrams: 07/31/16 06:00 07/31/16 06:00 Attending/Attestation - Attestation I have personally seen and examined this patient.: Yes I have fully participated in the care of the patient.: Yes I have reviewed all pertinent clinical information: Yes Notes (Text): 08/10/16 19:00 Medical record note made by the resident after discussion with my direction and input after the patient was personally seen and examined by me. I have reviewed the chart and agree that the record accurately reflects by personal performance of the history, physical exam, data review, and medical decision-making, in the course for the patient. I have also personally directed the plan of care.
[2016-07-25 02:32] LABS: URINE BACTERIA MANY (NEG)
[2016-07-25] MEDS: Insulin Reg-LOW-Coverage SC SCH ×3 (07:54→17:26)
[2016-07-25] MEDS: Potassium Chloride 20 mEq ER Tab PO SCH (08:15)
[2016-07-25] MEDS: Levothyroxine 75 MCG TAB PO SCH (08:15)
--- NOTE | 2016-07-25 09:36 | NM ---
COMPARISON: 07/10/2016 chest x-ray. July 24, 2016. CT thorax TECHNIQUE: 40.0 mCi technetium 99-m DTPA aerosol. 4.0 mCI technetium 99-m MAA administered intravenously. FINDINGS: VENTILATION COMPONENT: Heterogeneous ventilation. Radionuclide identified in the proximal bronchi and trachea as well as the stomach. PERFUSION COMPONENT: Heterogeneous distribution of radionuclide. No geographic, segmental, lobar abnormalities apparent on the present examination. IMPRESSION: Low probability ventilation perfusion scan for pulmonary embolism. Concordant results (preliminary interpretation) provided by [facility]. Procedure Completed: 23:18. Preliminary ([facility]) Report: Dictated and Authenticated: 00:00. Final Interpretation: 09:29. July 25, 2016.
[2016-07-25 09:42] LABS: INR 0.95 (0.93-1.08); PARTIAL THROMBOPLASTIN TIME 29.6 Seconds (23.7-30.8)
[2016-07-25] MEDS: Albuterol-Ipratrop 3 mg / 0.5 (3 ml) UD IH SCH ×3 (09:46→19:40)
[2016-07-25] MEDS: Acetylcysteine 20% Inhal Soln (4ml) IH SCH ×2 (10:11→19:40)
[2016-07-25 11:35] LABS: HEMATOCRIT 29.9 % (36.0-48.0); MEAN CORPUSCULAR HEMOGLOBIN 30.8 pg (25.0-35.0); MEAN CORPUSCULAR HGB CONC 31.4 g/dl (31.0-37.0); MEAN PLATELET VOLUME 10.1 fl (7.0-11.0); RED CELL DISTRIBUTION WIDTH 15.2 % (11.5-14.5); WHITE BLOOD COUNT 9.5 10^3/ul (4.5-11.0)
[2016-07-25] MEDS: Nystatin 100,000 Units/gm Topical Pow(15 gm) TOP SCH ×2 (13:00→17:26)
--- NOTE | 2016-07-25 13:09 | CP.PCM.CON ---
<Luis Conde - Last Filed: 07/29/16 07:17> History of Present Illness - History of Present Illness History of Present Illness: General Surgery Consult Note, Luis Conde PGY1 HPI: Patient is a 75 yo Female with past medical history of CHF, RLE DVT, TIA, hypertension, diabetes type 2, hyperlipidemia, morbid obesity, chronic lower extremity cellulitis and right brachial plexus injury that presented to [facility] for productive cough for over 1 week in duration. Patient with a previous lengthy [place] [facility] [place]habdomyolysis, acute kidney injury, severe sepsis secondary to necrotic gallbladder s/p cholecystectomy and right brachial plexus injury. Patient was sent from [facility] for reports that she had productive cough and shortness of breath. Patient denied chest pain, palpitations, SOB, abdominal pain, nausea, vomiting. Surgery consulted for sacral decubitus ulcer evaluation. 12 point ROS as per HPI above, otherwise negative PMHx: CHF, TIA, HTN, DM2, HLD, Hypothyroidism, Chronic lower extremity cellulitis, arthritis, RLE DVT, Right brachial plexus injury, morbid obesity PSHx: Hysterectomy, B/L knee replacements, cholecystectomy Social Hx: Former tobacco use. 1 ppd x 30 years. Occasional alcohol use and denies illicit drug use. Allergies: NKDA PMD: Dr. Porter Past Patient History - Infectious Disease Hx of Infectious Diseases: None - Past Medical History & Family History Past Medical History?: Yes - Past Social History Smoking Status: Former Smoker (>30 pack years 1 PPD, quit when 43 y/o) - CARDIAC Hx Congestive Heart Failure: Yes Hx Hypertension: Yes - NEUROLOGICAL Hx Paralysis: No Hx Transient Ischemic Attacks (TIA): Yes - ENDOCRINE/METABOLIC Hx Diabetes Mellitus Type 1: Yes - HEMATOLOGICAL/ONCOLOGICAL Hx Blood Transfusions: Yes Hx Blood Transfusion Reaction: No - INTEGUMENTARY Hx Cellulitis: Yes (BL LE) Other/Comment: cellulitis bilateral lower legs - MUSCULOSKELETAL/RHEUMATOLOGICAL Hx Musculoskeletal Disorders: Yes Hx Degenerative Joint Disease: Yes - GASTROINTESTINAL Hx Gastrointestinal Disorders: Yes (GI BLEED) - GENITOURINARY/GYNECOLOGICAL Hx Genitourinary Disorders: No Hx Reproductive Disorders: No - PSYCHIATRIC Hx Psychophysiologic Disorder: No Hx Emotional Abuse: No Hx Physical Abuse: No Hx Substance Use: No - SURGICAL HISTORY Hx Surgeries: Yes - ANESTHESIA Hx Anesthesia Reactions: No Hx Malignant Hyperthermia: No Meds Allergies/Adverse Reactions: Allergies Allergy/AdvReac Type Severity Reaction Status Date / Time No Known Allergies Allergy Verified 06/29/16 12:08 - Medications Medications: Current Medications Acetylcysteine (Acetylcysteine 20%) 3 ml IH BID [facility] Last Admin: 07/25/16 10:11 Dose: 3 ml Albuterol/Ipratropium (Duoneb 3 Mg/0.5 Mg (3 Ml) Ud) 3 ml IH [id number] [facility] Last Admin: 07/25/16 09:46 Dose: 3 ml Aspirin (Ecotrin) 81 mg PO DAILY [facility] Last Admin: 07/25/16 09:50 Dose: 81 mg Atorvastatin Calcium (Lipitor) 20 mg PO DAILY [facility] Last Admin: 07/25/16 09:51 Dose: 20 mg Cholecalciferol (Vitamin D) 2,000 iu PO DAILY [facility] Last Admin: 07/25/16 09:52 Dose: 2,000 iu Cyanocobalamin (Vitamin B12 1000 Mcg Tab) 1,000 mcg PO BID [facility] Last Admin: 07/25/16 09:51 Dose: 1,000 mcg Docusate Sodium (Colace) 100 mg PO BID [facility] Last Admin: 07/25/16 09:50 Dose: 100 mg Ferrous Sulfate (Feosol) 324 mg PO BID [facility] Last Admin: 07/25/16 10:32 Dose: 324 mg Furosemide (Lasix) 40 mg IVP DAILY [facility] Last Admin: 07/25/16 09:49 Dose: 40 mg Heparin Sodium (Porcine) (Heparin) 5,000 units SC Q12 [facility] PRN Reason: Protocol Last Admin: 07/25/16 09:51 Dose: 5,000 units Insulin Human Regular (Humulin R Low) 0 units SC ACHS [facility] PRN Reason: Protocol Last Admin: 07/25/16 12:00 Dose: Not Given Levothyroxine Sodium (Synthroid) 75 mcg PO 0630 [facility] Last Admin: 07/25/16 08:15 Dose: 75 mcg Nystatin (Nystop Topical Powder) 0 gm TOP BID [facility] Ondansetron HCl (Zofran Inj) 4 mg IVP Q6H PRN PRN Reason: Nausea/Vomiting Pantoprazole Sodium (Protonix Inj) 40 mg IVP DAILY [facility] Last Admin: 07/25/16 09:50 Dose: 40 mg Potassium Chloride (K-Dur 20 Meq Er Tab) 20 meq PO BRK [facility] Last Admin: 07/25/16 08:15 Dose: 20 meq Physical Exam - Constitutional Appears: Chronically Ill Additional comments: morbidly obese - Head Exam Head Exam: ATRAUMATIC, NORMAL INSPECTION, NORMOCEPHALIC - Eye Exam Eye Exam: EOMI, PERRL. absent: Scleral icterus - ENT Exam ENT Exam: Mucous Membranes Moist - Neck Exam Neck exam: Positive for: Normal Inspection - Respiratory Exam Respiratory Exam: Decreased Breath Sounds. absent: Rales, Rhonchi, Wheezes - Cardiovascular Exam Cardiovascular Exam: RRR, +S1, +S2. absent: Gallop, Rubs - GI/Abdominal Exam GI & Abdominal Exam: Distended, Guarding, Soft. absent: Firm, Rebound, Tenderness - Extremities Exam Additional comments: RUE motor strength 0/5, no sensation below right shoulder - Back Exam Additional comments: stage 3 decubitus ulcer - Neurological Exam Neurological exam: Alert, Oriented x3 - Psychiatric Exam Psychiatric exam: Normal Affect, Normal Mood - Skin Additional comments: bilateral lower extremity cellulitis Results - Vital Signs Recent Vital Signs: Last Vital Signs Temp 100.0 F H 07/25/16 08:56 Pulse 109 H 07/25/16 12:35 Resp 18 07/25/16 12:35 BP 137/82 07/25/16 12:35 Pulse Ox 95 07/25/16 12:35 - Labs Result Diagrams: 07/24/16 23:00 07/24/16 15:25 Labs: Laboratory Results - last 24 hr 07/25/16 07/25/16 01:55 02:57 NT-Pro-B Natriuret Pep 395 Urine Color Light yellow Urine Appearance Sl cloudy Urine pH >=9.0 Ur Specific [place] 1.010 Urine Protein Trace H Urine Glucose (UA) Negative Urine Ketones Negative Urine Blood Trace-lysed H Urine Nitrate Positive H Urine Bilirubin Negative Urine Urobilinogen 0.2 Ur Leukocyte Esterase Trace H Urine RBC 1 - 3 Urine WBC 1 - 3 Ur Epithelial Cells 0 - 2 Urine Bacteria Many Assessment & Plan - Assessment and Plan (Free Text) Plan: 75yo female with history of CHF, TIA, DVT, right brachial plexus injury, morbidy obesity admitted for productive cough and shortness of breath. Surgery consulted for management of sacral decubitus ulcer. -Recommend pressure offloading, air mattress, silvadene with optifoam dressing -No surgical intervention anticipated at this time -Continue medical management as per primary team Case to be discussed with attending, Dr. Pacheco - Date & Time Date: 07/25/16 Time: 13:14 <Ovidio Pacheco - Last Filed: 08/05/16 08:28> Results - Vital Signs Recent Vital Signs: Last Vital Signs Temp 99.3 F 07/31/16 07:56 Pulse 113 H 07/31/16 07:56 Resp 22 07/31/16 07:56 BP 140/70 07/31/16 10:34 Pulse Ox 95 07/31/16 07:56 - Labs Result Diagrams: 07/31/16 06:00 07/31/16 06:00 Assessment & Plan - Assessment and Plan (Free Text) Plan: Dx Stage IV Sacral Decubitus(Non-Septic) No intervention recommended--wound care orders recommended This consultation done under my direct supervision. Marianne Pacheco MD FACS
--- NOTE | 2016-07-25 14:07 | RAD ---
HISTORY: COUGH/ABD PAIN GENARLIZED COMPARISON: 07/10/2016 FINDINGS: LUNGS: No active pulmonary disease. PLEURA: No significant pleural effusion identified, no pneumothorax apparent. CARDIOVASCULAR: Mild cardiomegaly and mild vascular congestion OSSEOUS STRUCTURES: No significant abnormalities. VISUALIZED UPPER ABDOMEN: Normal. OTHER FINDINGS: None. IMPRESSION: Mild cardiomegaly and mild vascular congestion right greater than left
--- NOTE | 2016-07-25 14:22 | CT ---
PROCEDURE: CT Chest, Abdomen and Pelvis without intravenous contrast HISTORY: Abdominal pain. Relevant surgical history: Cholecystectomy Relevant interventional procedure(s): 07/09/2016 abscess drainage from gallbladder fossa. COMPARISON: 07/07/2016. CT thorax abdomen and pelvis. TECHNIQUE: Radiation dose: Total exam DLP = 1408.99 mGy-cm. This CT exam was performed using one or more of the following dose reduction techniques: Automated exposure control, adjustment of the mA and/or kV according to patient size, and/or use of iterative reconstruction technique. FINDINGS: CT CHEST WITHOUT CONTRAST: LUNGS: No significant infiltrates. No significant interval change compared to the prior examination(s). MEDIASTINUM: Cardiomegaly. No evidence of acute, significant cardiovascular disease. PICC line in satisfactory position LYMPH NODES: Unremarkable. PLEURA: Unremarkable. No pneumothorax. No pleural fluid. BONES: Multilevel degenerative change. No acute findings OTHER FINDINGS: Progressive edema incompletely visualized affecting the chest wall and upper extremity. The precise etiology is uncertain based on the overall appearance and the lack of intravenous contrast. Venous/vascular thrombosis can assume this appearance. CT ABDOMEN AND PELVIS: LIVER: Unremarkable liver. Evidence of 3 Cecile likely related to prior cholecystectomy/ abscess drainage. GALLBLADDER AND BILE DUCTS: Pigtail catheter identified in satisfactory position in the gallbladder fossa. PANCREAS: Unremarkable. No gross lesion or ductal dilatation. SPLEEN: Unremarkable. ADRENALS: Unremarkable. No mass. KIDNEYS AND URETERS: No significant interval change compared to the prior examination(s). VASCULATURE: Unremarkable. No aortic aneurysm. BOWEL: Unremarkable. No obstruction. No gross mural thickening. Diverticulosis without an acute inflammatory component or other associated pathologic process. APPENDIX: No abnormalities to suggest acute appendicitis. No right lower quadrant inflammatory processes identified. PERITONEUM: Unremarkable. No free fluid. No free air. LYMPH NODES: Unremarkable. No enlarged lymph nodes. BLADDER: Briones catheter identified in the urinary bladder. REPRODUCTIVE: Prior hysterectomy. BONES: Multilevel degenerative change. No acute findings OTHER FINDINGS: None. IMPRESSION: Progressive edema about the anterior right chest wall and right upper extremity. No drainable collection. Cardiomegaly. No evidence of acute, significant cardiovascular disease. Venous access catheter/PICC appears to be in satisfactory position. Status post percutaneous catheter placement into the gallbladder fossa. No residual fluid collection identified. Additional benign and/or incidental findings described above. Concordant results (preliminary interpretation) provided by [facility]. Procedure Completed: 18:15. Preliminary ([facility]) Report: Dictated and Authenticated: 20:15. Final Interpretation: 09:11. July 25, 2016.
[2016-07-25 16:21] VITALS: BMI 44.9
[2016-07-25] MEDS ORDERED: Pneumococcal 23-Valent Vaccine IM ONE (16:22)
[2016-07-25] MEDS: Silver Sulfadiazine 1% Cream (20 gm) TOP SCH (17:27)
[2016-07-25 19:23] LABS: VENOUS BLOOD PH 7.36 (7.32-7.43)
[2016-07-25 19:24] LABS: VENOUS BLOOD GAS BASE EXCESS 1.8 mmol/L (0.0-2.0)
--- NOTE | 2016-07-25 19:51 | US ---
PROCEDURE: Right upper extremity venous US CLINICAL HISTORY: Arm pain and swelling Evaluate for deep venous thrombosis. PHYSICIAN(S): Nathan Cui M.D FINDINGS: The exam is limited by edema. The visualized rightinternal jugular vein is sonographically normal and compressible. No evidence of obstruction or thrombus is seen. The visualized segments of the right subclavian vein are patent with normal waveforms. No sonographic evidence of obstruction or thrombosis is seen. The visualized deep venous system of the proximal right upper extremity is sonographically normal and compressible. Limited images of the left subclavian vein demonstrate a catheter without thrombus. IMPRESSION: 1. No sonographic evidence for deep venous thrombosis in the visualized segments of the right upper extremity.
[2016-07-26] MEDS: Albuterol-Ipratrop 3 mg / 0.5 (3 ml) UD IH SCH ×7 (00:01→23:17)
[2016-07-26] MEDS: Insulin Reg-LOW-Coverage SC SCH ×5 (01:02→23:49)
[2016-07-26] MEDS: guaiFENesin 100 mg/5 ml Syrup UD PO PRN ×2 (03:20→20:47)
[2016-07-26] MEDS: Levothyroxine 75 MCG TAB PO SCH (06:12)
[2016-07-26 06:40] LABS: ADD MANUAL DIFF? NO
[2016-07-26 07:03] LABS: ALB/GLOB RATIO 0.8 (1.1-1.8); BILIRUBIN,TOTAL 0.7 mg/dL (0.2-1.3); CALCIUM 10.9 mg/dL (8.4-10.5); POTASSIUM 4.2 mmol/L (3.6-5.0)
[2016-07-26 07:10] LABS: BASO # 0.01 K/mm3 (0.0-2.0); BASO % 0.1 % (0.0-3.0); EOS # 0.3 (0.0-0.7); GRAN # 8.51 (1.4-6.5); GRAN % 75.8 % (50.0-68.0); HEMATOCRIT 27.6 % (36.0-48.0); LYMPH % 8.9 % (22.0-35.0); MEAN CELL VOLUME 98.6 fL (80.0-105.0); MEAN CORPUSCULAR HEMOGLOBIN 31.1 pg (25.0-35.0); MEAN CORPUSCULAR HGB CONC 31.5 g/dl (31.0-37.0); MEAN PLATELET VOLUME 9.7 fl (7.0-11.0); MONO # 1.4 (0.1-0.6); MONO % 12.2 % (1.0-6.0); PLATELET COUNT 363 10^3/uL (120.0-450.0); RED CELL DISTRIBUTION WIDTH 15.2 % (11.5-14.5); WHITE BLOOD COUNT 11.2 10^3/ul (4.5-11.0)
[2016-07-26] MEDS ORDERED: Gentamicin 80 mg/2mL Inj. IVPB SCH (07:15)
[2016-07-26] MEDS: Acetylcysteine 20% Inhal Soln (4ml) IH SCH ×3 (08:20→19:53)
[2016-07-26] MEDS: Potassium Chloride 20 mEq ER Tab PO SCH (08:27)
[2016-07-26] MEDS: Sodium Chloride 0.9% 1,000 ML IV SCH (08:28)
[2016-07-26] MEDS: Cefepime IV 2 gm in NS 2 GM/100 ML BAG IVPB SCH ×2 (08:31→09:09)
[2016-07-26] MEDS ORDERED: Meropenem 1g/NS 100mL IVPB 1 GM/100 ML PIGGYBACK IVPB SCH (08:46)
[2016-07-26 09:07] LABS: VENOUS BLOOD GAS BASE EXCESS 8.3 mmol/L (0.0-2.0); VENOUS BLOOD PH 7.52 (7.32-7.43)
[2016-07-26] MEDS: Nystatin 100,000 Units/gm Topical Pow(15 gm) TOP SCH ×2 (11:30→17:23)
[2016-07-26] MEDS: Silver Sulfadiazine 1% Cream (20 gm) TOP SCH ×2 (11:31→17:23)
--- NOTE | 2016-07-26 11:33 | CP.PCM.CON ---
History of Present Illness - History of Present Illness History of Present Illness: 75 year old female with PMH of HTN, CHF, DM, morbid obesity with BMI 47, hypothyroidism, S/P hysterectomy, S/P bilateral knee replacements, dyslipidemia , history of TIA, dyslipidemia, history of chronic lower extremity cellulitis, degenerative arthritis was recently admitted in [facility] because of acute gangrenous cholecystitis in June 2016. She was also found to have severe rhabdomyolysis then. She underwent laparoscopic cholecystectomy and did well with antibiotics. She was then [facility] a [facility]. A week ago, the patient started to have some shortness of breath and cough as well as generalized weakness. The patient denies fever or chills, no nausea or vomiting , no chest pain, no headache or dizziness, no diarrhea, no dysuria, no abdominal pain. Blood cx were taken in the ED and gram negative bacilli are growing. Infectious diseases consult is requested to further evaluate and manage. Review of Systems - Review of Systems All systems: reviewed and no additional remarkable complaints except (as per HPI ) Past Patient History - Infectious Disease Hx of Infectious Diseases: None - Past Medical History & Family History Past Medical History?: Yes - Past Social History Smoking Status: Former Smoker - CARDIAC Hx Congestive Heart Failure: Yes Hx Hypercholesterolemia: Yes Hx Hypertension: Yes Hx Peripheral Edema: Yes (ble +4 pitting) Hx Peripheral Vascular Disease: Yes (ble cellulitis chronic) Other/Comment: hx rle dvt - NEUROLOGICAL Hx Transient Ischemic Attacks (TIA): Yes - ENDOCRINE/METABOLIC Hx Diabetes Mellitus Type 1: Yes Hx Hypothyroidism: Yes - HEMATOLOGICAL/ONCOLOGICAL Hx Blood Disorders: Yes Other/Comment: DVT - INTEGUMENTARY Other/Comment: cellulitis bilateral lower legs,red, dry flakey and hard skin ble , +4 edema, dry skin to feet, multiple bruises to abd, multiple scabs to abd from recent gb sx, abd dranage bag, red skin to abd fold and under both breasts , right arm swelling and paralysis +4 edema to hand, stage 2 pressure ulcer open wound to right hand between 4th and 5th fingers secondary to lymphodema - MUSCULOSKELETAL/RHEUMATOLOGICAL Hx Falls: Yes (past) - GASTROINTESTINAL Hx Gastrointestinal Disorders: Yes (GI BLEED) Hx Ulcer: Yes - GENITOURINARY/GYNECOLOGICAL Hx Genitourinary Disorders: No - PSYCHIATRIC Hx Psychophysiologic Disorder: No Hx Emotional Abuse: No Hx Physical Abuse: No - SURGICAL HISTORY Hx Surgeries: Yes Hx Cholecystectomy: Yes (with drain r upper abd for abcess) Hx Hysterectomy: Yes (1983) Other/Comment: b/l knee replacement right 2012, left 2003, picc, cbd poly p, ercp - ANESTHESIA Hx Anesthesia Reactions: No Hx Malignant Hyperthermia: No Meds Allergies/Adverse Reactions: Allergies Allergy/AdvReac Type Severity Reaction Status Date / Time No Known Allergies Allergy Verified 06/29/16 12:08 - Medications Medications: Current Medications Acetylcysteine (Acetylcysteine 20%) 3 ml IH BID [facility] Last Admin: 07/26/16 08:20 Dose: 3 ml Albuterol/Ipratropium (Duoneb 3 Mg/0.5 Mg (3 Ml) Ud) 3 ml IH [id number] [facility] Last Admin: 07/26/16 08:20 Dose: 3 ml Aspirin (Ecotrin) 81 mg PO DAILY [facility] Last Admin: 07/25/16 09:50 Dose: 81 mg Atorvastatin Calcium (Lipitor) 20 mg PO DAILY [facility] Last Admin: 07/25/16 09:51 Dose: 20 mg Cholecalciferol (Vitamin D) 2,000 iu PO DAILY [facility] Last Admin: 07/25/16 09:52 Dose: 2,000 iu Cyanocobalamin (Vitamin B12 1000 Mcg Tab) 1,000 mcg PO BID [facility] Last Admin: 07/25/16 17:27 Dose: 1,000 mcg Docusate Sodium (Colace) 100 mg PO BID [facility] Last Admin: 07/25/16 17:25 Dose: 100 mg Ferrous Sulfate (Feosol) 324 mg PO BID [facility] Last Admin: 07/25/16 17:25 Dose: 324 mg Furosemide (Lasix) 40 mg IVP DAILY [facility] Last Admin: 07/25/16 09:49 Dose: 40 mg Guaifenesin (Robitussin) 100 mg PO Q4H PRN PRN Reason: Cough Last Admin: 07/26/16 03:20 Dose: 100 mg Heparin Sodium (Porcine) (Heparin) 5,000 units SC Q12 [facility] PRN Reason: Protocol Last Admin: 07/25/16 22:23 Dose: 5,000 units Cefepime HCl (Maxipime 2gm) 2 gm in 100 mls @ 100 mls/hr IVPB Q12 [facility] PRN Reason: Protocol Stop: 07/31/16 08:01 Last Admin: 07/26/16 08:31 Dose: 100 mls/hr Sodium Chloride (Sodium Chloride 0.9%) 1,000 mls @ 75 mls/hr IV .[id number] [facility] Last Admin: 07/26/16 08:28 Dose: 75 mls/hr Insulin Human Regular (Humulin R Low) 0 units SC ACHS [facility] PRN Reason: Protocol Last Admin: 07/26/16 08:27 Dose: Not Given Levothyroxine Sodium (Synthroid) 75 mcg PO 0630 [facility] Last Admin: 07/26/16 06:12 Dose: 75 mcg Nystatin (Nystop Topical Powder) 0 gm TOP BID [facility] Last Admin: 07/25/16 17:26 Dose: 1 applic Ondansetron HCl (Zofran Inj) 4 mg IVP Q6H PRN PRN Reason: Nausea/Vomiting Pantoprazole Sodium (Protonix Inj) 40 mg IVP DAILY [facility] Last Admin: 07/25/16 09:50 Dose: 40 mg Potassium Chloride (K-Dur 20 Meq Er Tab) 20 meq PO BRK [facility] Last Admin: 07/26/16 08:27 Dose: 20 meq Silver Sulfadiazine (Silvadene 1% 20 Gm) 1 ea TOP BID [facility] Last Admin: 07/25/16 17:27 Dose: 1 applic Physical Exam - Constitutional Appears: Non-toxic, No Acute Distress - Head Exam Head Exam: NORMAL INSPECTION - ENT Exam ENT Exam: Mucous Membranes Moist - Neck Exam Neck exam: Negative for: Lymphadenopathy, Meningismus - Respiratory Exam Respiratory Exam: Decreased Breath Sounds Additional comments: mild erythema and scaling of the skin on the right anterior chest wall without tenderness or discharge noted - Cardiovascular Exam Cardiovascular Exam: +S1, +S2 - GI/Abdominal Exam GI & Abdominal Exam: Soft. absent: Tenderness - Extremities Exam Additional comments: left upper arm PICC line site clean and intact Results - Vital Signs Recent Vital Signs: Last Vital Signs Temp 99.2 F 07/26/16 07:25 Pulse 93 H 07/26/16 07:25 Resp 20 07/26/16 07:25 BP 111/54 L 07/26/16 07:25 Pulse Ox 95 07/26/16 07:25 - Labs Result Diagrams: 07/26/16 06:00 07/26/16 06:00 Labs: Laboratory Results - last 24 hr 07/26/16 07/26/16 06:00 06:00 WBC 11.2 H RBC 2.80 L Hgb 8.7 L Hct 27.6 L MCV 98.6 MCH 31.1 MCHC 31.5 RDW 15.2 H Plt Count 363 MPV 9.7 Gran % 75.8 H Lymph % (Auto) 8.9 L [place] % (Auto) 12.2 H Eos % (Auto) 3.0 Baso % (Auto) 0.1 Gran # 8.51 H Lymph # 1.0 L [place] # 1.4 H Eos # 0.3 Baso # 0.01 Sodium 139 Potassium 4.2 Chloride 100 Carbon Dioxide 32 Anion Gap 11 BUN 38 H Creatinine 1.4 Est GFR ( Amer) 44 Est GFR (Non-Af Amer) 36 Random Glucose 80 Calcium 10.9 H Total Bilirubin 0.7 AST 28 ALT 36 Alkaline Phosphatase 92 Total Protein 6.0 Albumin 2.7 L Globulin 3.3 Albumin/Globulin Ratio 0.8 L Assessment & Plan - Assessment and Plan (Free Text) Plan: Assessment Sepsis due to gram negative bacilli, R/O PICC line as the source; no evidence of intra-abdominal infection on CT abdomen and pelvis and urinalysis does not show pyuria making UTI unlikely right chest wall edema, etiology unclear history of acute severe rhabdomyolysis history of acute gangrenous cholecystitis/ biliary tree infection in a patient with biliary tree stones S/P lap cholecystectomy - grew Kleb oxytoca, pneumoniae , and Proteus mirabilis - patient with probable gallbladder fossa abscess post- op S/P CT-guided drainage HTN chronic CHF DM morbid obesity with BMI 45 hypothyroidism S/P hysterectomy S/P bilateral knee replacements dyslipidemia history of TIA dyslipidemia history of chronic lower extremity cellulitis degenerative arthritis Plan started Meropenem pending identification and sensitivities of the gram negative bacilli in the blood; recommend removal of the PICC line Will monitor clinically
--- NOTE | 2016-07-26 13:24 | PN ---
DATE: 07/26/[address] Porter, who is off this weekend. I saw the patient resting in bed. Family was present. They asked me many, many questions. They mick d me that they did not know anything about the case and I spent 20-25 minutes with them to keep them up to speed. The patient is comfortable in bed, no pain. She has a UTI, sacral ulcer, diabetes, CHF and bacteremia. She is being seen by infectious disease and general surgery. MEDICATIONS: She is on acetylcysteine, Colace, albuterol, DuoNeb, Ecotrin, iron, heparin, insulin, p otassium, Lasix, Lipitor, Merrem IV, nystatin, Protonix, Robitussin, Silvadene cream, IV fluids, Synt hroid, Tylenol, vitamin B12, vitamin D, Zofran. PHYSICAL EXAMINATION: VITAL SIGNS: She has a 99.2 temp, 93 pulse, 111/54 blood pressure, 20 respiratory rate, 95% O2 sat o n room air. HEENT: Head is atraumatic, normocephalic. Throat is moist. NECK: Supple. HEART: Regular rate. LUNGS: Decreased breath sounds, but fairly clear for what I could tell. ABDOMEN: Morbidly obese, nontender, positive bowel sounds, no guarding, no rebound. EXTREMITIES: With +1 pitting edema. LABORATORY DATA: She has an 11.2 white count, 8.7 hemoglobin, 27.6 hematocrit with 363 platelets. I NR is 0.95. Sodium 139, potassium 4.2, BUN 38, creatinine 1.4, GFR 36, sugar is 80, calcium is 10.9, total bili is 0.7, AST is 20, ALT is 36, alk phos 92. Troponin I is less than 0.01. BNP was 395. Total protein 6. Urine was many, many bacteria. She is being seen by infectious disease. She is having multiple issues. She is on IV antibiotics. I ordered physical therapy and out of bed to chair. She is here for sepsis, sacral ulcer, diabetes, morbidly obese, urinary tract infection. Jayant Tellez DO cc: [id number] TT: 07/26/2016 13:23:23 Confirmation # [id number] Dictation # [id number] rn
[2016-07-26] MEDS: Meropenem 1g/NS 100mL IVPB 1 GM/100 ML PIGGYBACK IVPB SCH (22:15)
[2016-07-27] MEDS: Sodium Chloride 0.9% 1,000 ML IV SCH
[2016-07-27] MEDS: Albuterol-Ipratrop 3 mg / 0.5 (3 ml) UD IH SCH ×6 (04:49→23:05)
[2016-07-27] MEDS: Levothyroxine 75 MCG TAB PO SCH (05:42)
[2016-07-27] MEDS: guaiFENesin 100 mg/5 ml Syrup UD PO PRN (05:43)
[2016-07-27 07:10] LABS: ADD MANUAL DIFF? NO
[2016-07-27 07:32] LABS: ALB/GLOB RATIO 0.9 (1.1-1.8); BILIRUBIN,TOTAL 0.4 mg/dL (0.2-1.3); CALCIUM 9.7 mg/dL (8.4-10.5); TOTAL PROTEIN 5.6 g/dL (5.8-8.3)
[2016-07-27 07:44] LABS: BASO # 0.02 K/mm3 (0.0-2.0); BASO % 0.2 % (0.0-3.0); EOS # 0.6 (0.0-0.7); EOS % 4.7 % (1.5-5.0); GRAN # 8.72 (1.4-6.5); GRAN % 75.1 % (50.0-68.0); HEMATOCRIT 25.1 % (36.0-48.0); LYMPH # 0.8 (1.2-3.4); MEAN CELL VOLUME 96.5 fL (80.0-105.0); MEAN CORPUSCULAR HEMOGLOBIN 31.2 pg (25.0-35.0); MEAN CORPUSCULAR HGB CONC 32.3 g/dl (31.0-37.0); MEAN PLATELET VOLUME 9.6 fl (7.0-11.0); MONO # 1.5 (0.1-0.6); PLATELET COUNT 317 10^3/uL (120.0-450.0); RED CELL DISTRIBUTION WIDTH 15.1 % (11.5-14.5); WHITE BLOOD COUNT 11.6 10^3/ul (4.5-11.0)
[2016-07-27] MEDS: Acetylcysteine 20% Inhal Soln (4ml) IH SCH ×2 (07:59→19:35)
[2016-07-27] MEDS: Insulin Reg-LOW-Coverage SC SCH ×4 (08:30→22:10)
[2016-07-27] MEDS: Potassium Chloride 20 mEq ER Tab PO SCH (08:33)
[2016-07-27] MEDS: Meropenem 1g/NS 100mL IVPB 1 GM/100 ML PIGGYBACK IVPB SCH ×2 (09:15→21:07)
[2016-07-27] MEDS: Nystatin 100,000 Units/gm Topical Pow(15 gm) TOP SCH ×2 (09:16→17:58)
[2016-07-27] MEDS: Silver Sulfadiazine 1% Cream (20 gm) TOP SCH ×2 (09:16→17:58)
--- NOTE | 2016-07-27 10:36 | PN ---
DATE: 07/27/2016 I am seeing her for Dr. Porter, who is off. She is resting comfortably in bed, slept fairly well. She is eating a little bit. She is on acetylcysteine, Colace, DuoNeb, Ecotrin, Feosol, heparin, Humulin, K-Dur, Lasix, Lipitor, M errem IV, Nystatin powder, Protonix, Robitussin, Silvadene cream, IV fluids, Synthroid, Tylenol, brayden min B12, vitamin D and Zofran. PHYSICAL EXAMINATION: VITAL SIGNS: She has a 98.5 temp, 92 pulse, 121/59 blood pressure, 18 respiratory rate, 98% O2 sat o n room air. HEAD: Atraumatic, normocephalic. THROAT: Moist. NECK: Supple. HEART: Regular rate. LUNGS: Decreased breath sounds, but clear. ABDOMEN: Soft, morbidly obese. Positive bowel sounds. No guarding. EXTREMITIES: Trace edema. She has an 11.6 white count, 8.1 hemoglobin. If it gets below 8, we will transfuse her. Hematocrit 25.1 with 317 platelets. She has a 135 sodium, potassium is 4, BUN 33, creatinine 1.3, getting tricia r, GFR is up to 40, sugar is 101. Calcium is 9.7. Total bili is 0.4. AST is 32, ALT 32, alk phos i s 83, total protein is 5.6. She is being seen by infectious disease. She has multiple issues. She has sepsis, intra-abdominal i nfection, urinary tract infection, a little congestive heart failure, bacteremia, urinary tract infec tion. We will continue with aggressive treatment and care. That is on top of her morbid obesity, he r diabetes, and she might need to go to subacute rehabilitation. We will check her labs tomorrow. C ontinue with aggressive treatment and care, as per infectious disease. Jayant Tellez DO cc: [id number] TT: 07/27/2016 10:36:28 Confirmation # [id number] Dictation # [id number] en
[2016-07-27] MEDS ORDERED: DAPTOmycin 500 mg Inj (Cubicin) IV SCH (10:45)
--- NOTE | 2016-07-27 10:58 | CP.PCM.PN ---
Subjective - Date & Time of Evaluation Date of Evaluation: 07/27/16 Time of Evaluation: 10:48 - Subjective Subjective: As per orders of Dr Good,Picc line was removed.(aseptic precautions used). Sterile dressing and local pressure applied. . Objective - Vital Signs/Intake and Output Vital Signs (last 24 hours): Temp Pulse Resp BP Pulse Ox 98.5 F 92 H 18 121/59 L 98 07/27/16 07:34 07/27/16 07:34 07/27/16 07:34 07/27/16 09:14 07/27/16 07:34 Intake and Output: 07/27/16 07/27/16 06:59 18:59 Intake Total 925 Output Total 475 Balance 450 - Medications Medications: Current Medications Acetaminophen (Tylenol 325mg Tab) 650 mg PO Q4H PRN PRN Reason: Fever >100.4 F Last Admin: 07/26/16 20:47 Dose: 650 mg Acetylcysteine (Acetylcysteine 20%) 3 ml IH BID [facility] Last Admin: 07/27/16 07:59 Dose: 3 ml Albuterol/Ipratropium (Duoneb 3 Mg/0.5 Mg (3 Ml) Ud) 3 ml IH [id number] [facility] Last Admin: 07/27/16 07:59 Dose: 3 ml Aspirin (Ecotrin) 81 mg PO DAILY [facility] Last Admin: 07/27/16 09:15 Dose: 81 mg Atorvastatin Calcium (Lipitor) 20 mg PO DAILY [facility] Last Admin: 07/27/16 09:15 Dose: 20 mg Cholecalciferol (Vitamin D) 2,000 iu PO DAILY [facility] Last Admin: 07/27/16 09:14 Dose: 2,000 iu Cyanocobalamin (Vitamin B12 1000 Mcg Tab) 1,000 mcg PO BID [facility] Last Admin: 07/27/16 09:14 Dose: 1,000 mcg Daptomycin (Cubicin) 670 mg 6 mg/kg (670 mg) IV Q24H [facility] PRN Reason: Protocol Stop: 08/01/16 10:46 Docusate Sodium (Colace) 100 mg PO BID [facility] Last Admin: 07/27/16 09:14 Dose: 100 mg Ferrous Sulfate (Feosol) 324 mg PO BID [facility] Last Admin: 07/27/16 09:14 Dose: 324 mg Furosemide (Lasix) 40 mg IVP DAILY [facility] Last Admin: 07/27/16 09:14 Dose: 40 mg Guaifenesin (Robitussin) 100 mg PO Q4H PRN PRN Reason: Cough Last Admin: 07/27/16 05:43 Dose: 100 mg Heparin Sodium (Porcine) (Heparin) 5,000 units SC Q12 [facility] PRN Reason: Protocol Last Admin: 07/27/16 09:13 Dose: 5,000 units Sodium Chloride (Sodium Chloride 0.9%) 1,000 mls @ 75 mls/hr IV .[id number] [facility] Last Admin: 07/27/16 00:00 Dose: 75 mls/hr Meropenem 1g/NS 100mL IVPB (Meropenem 1g/Ns 100ml Ivpb) 1 gm in 100 mls @ 100 mls/hr IVPB Q12 [facility] PRN Reason: Protocol Stop: 08/09/16 22:01 Last Admin: 07/27/16 09:15 Dose: 100 mls/hr Insulin Human Regular (Humulin R Low) 0 units SC ACHS [facility] PRN Reason: Protocol Last Admin: 07/27/16 08:30 Dose: Not Given Levothyroxine Sodium (Synthroid) 75 mcg PO 0630 [facility] Last Admin: 07/27/16 05:42 Dose: 75 mcg Nystatin (Nystop Topical Powder) 0 gm TOP BID [facility] Last Admin: 07/27/16 09:16 Dose: 1 applic Ondansetron HCl (Zofran Inj) 4 mg IVP Q6H PRN PRN Reason: Nausea/Vomiting Pantoprazole Sodium (Protonix Inj) 40 mg IVP DAILY [facility] Last Admin: 07/27/16 09:14 Dose: 40 mg Potassium Chloride (K-Dur 20 Meq Er Tab) 20 meq PO BRK [facility] Last Admin: 07/27/16 08:33 Dose: 20 meq Silver Sulfadiazine (Silvadene 1% 20 Gm) 1 ea TOP BID [facility] Last Admin: 07/27/16 09:16 Dose: 1 applic - Labs Labs: 07/27/16 07:00 07/27/16 07:00 PT 10.3 Seconds (9.9-11.8) 07/24/16 23:00 INR 0.95 (0.93-1.08) 07/24/16 23:00 APTT 29.6 Seconds (23.7-30.8) 07/24/16 23:00
[2016-07-27] MEDS: DAPTOmycin 670 MG in Sodium Chloride 0.9% 100 ML IV SCH (13:03)
--- NOTE | 2016-07-27 19:19 | CP.PCM.PN ---
Subjective - Date & Time of Evaluation Date of Evaluation: 07/27/16 Time of Evaluation: 12:30 - Subjective Subjective: Comfortable in bed, not in distress, afebrile, PICC line has been removed, no diarrhea. Objective - Vital Signs/Intake and Output Vital Signs (last 24 hours): Temp Pulse Resp BP Pulse Ox 99 F 103 H 19 115/75 98 07/27/16 18:01 07/27/16 18:01 07/27/16 18:01 07/27/16 18:01 07/27/16 18:01 Intake and Output: 07/27/16 07/28/16 18:59 06:59 Intake Total 850 Output Total 1800 Balance -950 - Medications Medications: Current Medications Acetaminophen (Tylenol 325mg Tab) 650 mg PO Q4H PRN PRN Reason: Fever >100.4 F Last Admin: 07/26/16 20:47 Dose: 650 mg Acetylcysteine (Acetylcysteine 20%) 3 ml IH BID [facility] Last Admin: 07/27/16 07:59 Dose: 3 ml Albuterol/Ipratropium (Duoneb 3 Mg/0.5 Mg (3 Ml) Ud) 3 ml IH [id number] [facility] Last Admin: 07/27/16 15:34 Dose: 3 ml Aspirin (Ecotrin) 81 mg PO DAILY [facility] Last Admin: 07/27/16 09:15 Dose: 81 mg Atorvastatin Calcium (Lipitor) 20 mg PO DAILY [facility] Last Admin: 07/27/16 09:15 Dose: 20 mg Cholecalciferol (Vitamin D) 2,000 iu PO DAILY [facility] Last Admin: 07/27/16 09:14 Dose: 2,000 iu Cyanocobalamin (Vitamin B12 1000 Mcg Tab) 1,000 mcg PO BID [facility] Last Admin: 07/27/16 17:58 Dose: 1,000 mcg Docusate Sodium (Colace) 100 mg PO BID [facility] Last Admin: 07/27/16 17:57 Dose: 100 mg Ferrous Sulfate (Feosol) 324 mg PO BID [facility] Last Admin: 07/27/16 17:57 Dose: 324 mg Furosemide (Lasix) 40 mg IVP DAILY [facility] Last Admin: 07/27/16 09:14 Dose: 40 mg Guaifenesin (Robitussin) 100 mg PO Q4H PRN PRN Reason: Cough Last Admin: 07/27/16 05:43 Dose: 100 mg Heparin Sodium (Porcine) (Heparin) 5,000 units SC Q12 [facility] PRN Reason: Protocol Last Admin: 07/27/16 09:13 Dose: 5,000 units Sodium Chloride (Sodium Chloride 0.9%) 1,000 mls @ 75 mls/hr IV .[id number] [facility] Last Admin: 07/27/16 00:00 Dose: 75 mls/hr Meropenem 1g/NS 100mL IVPB (Meropenem 1g/Ns 100ml Ivpb) 1 gm in 100 mls @ 100 mls/hr IVPB Q12 [facility] PRN Reason: Protocol Stop: 08/09/16 22:01 Last Admin: 07/27/16 09:15 Dose: 100 mls/hr Daptomycin 670 mg/ Sodium (Chloride) 100 mls @ 100 mls/hr IV Q24H [facility] Stop: 08/01/16 11:01 Last Admin: 07/27/16 13:03 Dose: 100 mls/hr Insulin Human Regular (Humulin R Low) 0 units SC ACHS [facility] PRN Reason: Protocol Last Admin: 07/27/16 17:57 Dose: Not Given Levothyroxine Sodium (Synthroid) 75 mcg PO 0630 [facility] Last Admin: 07/27/16 05:42 Dose: 75 mcg Nystatin (Nystop Topical Powder) 0 gm TOP BID [facility] Last Admin: 07/27/16 17:58 Dose: 1 applic Ondansetron HCl (Zofran Inj) 4 mg IVP Q6H PRN PRN Reason: Nausea/Vomiting Pantoprazole Sodium (Protonix Inj) 40 mg IVP DAILY [facility] Last Admin: 07/27/16 09:14 Dose: 40 mg Potassium Chloride (K-Dur 20 Meq Er Tab) 20 meq PO BRK [facility] Last Admin: 07/27/16 08:33 Dose: 20 meq Silver Sulfadiazine (Silvadene 1% 20 Gm) 1 ea TOP BID [facility] Last Admin: 07/27/16 17:58 Dose: 1 applic - Labs Labs: 07/27/16 07:00 07/27/16 07:00 PT 10.3 Seconds (9.9-11.8) 07/24/16 23:00 INR 0.95 (0.93-1.08) 07/24/16 23:00 APTT 29.6 Seconds (23.7-30.8) 07/24/16 23:00 - Constitutional Appears: Non-toxic, No Acute Distress - ENT Exam ENT Exam: Mucous Membranes Moist - Neck Exam Neck Exam: absent: Lymphadenopathy, Meningismus - Respiratory Exam Respiratory Exam: Decreased Breath Sounds - Cardiovascular Exam Cardiovascular Exam: +S1, +S2 - GI/Abdominal Exam GI & Abdominal Exam: Soft. absent: Tenderness Assessment and Plan - Assessment and Plan (Free Text) Plan: Assessment Sepsis due to gram negative bacilli and gram positive cocci bacteremia, R/O PICC line as the source; no evidence of intra-abdominal infection on CT abdomen and pelvis and urinalysis does not show pyuria making UTI unlikely; S/P PICC line removal right chest wall edema, etiology unclear history of acute severe rhabdomyolysis history of acute gangrenous cholecystitis/ biliary tree infection in a patient with biliary tree stones S/P lap cholecystectomy - grew Kleb oxytoca, pneumoniae , and Proteus mirabilis - patient with probable gallbladder fossa abscess post- op S/P CT-guided drainage HTN chronic CHF DM morbid obesity with BMI 45 hypothyroidism S/P hysterectomy S/P bilateral knee replacements dyslipidemia history of TIA dyslipidemia history of chronic lower extremity cellulitis degenerative arthritis Plan continue Meropenem and added pending identification and sensitivities of the gram negative bacilli and gram positive cocci in the blood Will continue to monitor clinically
[2016-07-28] MEDS: Sodium Chloride 0.9% 1,000 ML IV SCH ×2 (00:10→13:37)
[2016-07-28] MEDS: guaiFENesin 100 mg/5 ml Syrup UD PO PRN ×2 (01:00→06:18)
[2016-07-28] MEDS: Albuterol-Ipratrop 3 mg / 0.5 (3 ml) UD IH SCH ×5 (03:35→19:40)
[2016-07-28] MEDS: Levothyroxine 75 MCG TAB PO SCH (06:19)
[2016-07-28 07:30] LABS: ADD MANUAL DIFF? NO
[2016-07-28 07:38] LABS: BASO # 0.02 K/mm3 (0.0-2.0); BASO % 0.2 % (0.0-3.0); EOS # 0.4 (0.0-0.7); EOS % 3.3 % (1.5-5.0); GRAN # 10.09 (1.4-6.5); GRAN % 78.4 % (50.0-68.0); HEMATOCRIT 26.8 % (36.0-48.0); LYMPH # 0.7 (1.2-3.4); LYMPH % 5.4 % (22.0-35.0); MEAN CELL VOLUME 96.4 fL (80.0-105.0); MEAN CORPUSCULAR HEMOGLOBIN 30.9 pg (25.0-35.0); MEAN CORPUSCULAR HGB CONC 32.1 g/dl (31.0-37.0); MEAN PLATELET VOLUME 9.8 fl (7.0-11.0); MONO # 1.6 (0.1-0.6); MONO % 12.7 % (1.0-6.0); PLATELET COUNT 340 10^3/uL (120.0-450.0); RED CELL DISTRIBUTION WIDTH 14.9 % (11.5-14.5); WHITE BLOOD COUNT 12.9 10^3/ul (4.5-11.0)
[2016-07-28 08:01] LABS: ALB/GLOB RATIO 0.8 (1.1-1.8); BILIRUBIN,TOTAL 0.5 mg/dL (0.2-1.3); CALCIUM 10.2 mg/dL (8.4-10.5); POTASSIUM 3.9 mmol/L (3.6-5.0); TOTAL PROTEIN 6.5 g/dL (5.8-8.3)
[2016-07-28] MEDS: Insulin Reg-LOW-Coverage SC SCH ×4 (08:02→22:01)
[2016-07-28] MEDS: Potassium Chloride 20 mEq ER Tab PO SCH (09:31)
[2016-07-28] MEDS: Meropenem 1g/NS 100mL IVPB 1 GM/100 ML PIGGYBACK IVPB SCH (09:33)
[2016-07-28] MEDS: Nystatin 100,000 Units/gm Topical Pow(15 gm) TOP SCH ×2 (09:33→17:35)
[2016-07-28] MEDS: Silver Sulfadiazine 1% Cream (20 gm) TOP SCH ×2 (09:34→17:35)
[2016-07-28] MEDS: Acetylcysteine 20% Inhal Soln (4ml) IH SCH ×2 (11:45→19:40)
--- NOTE | 2016-07-28 13:10 | CP.PCM.PN ---
<Radha Boyd - Last Filed: 07/28/16 16:20> Subjective - Date & Time of Evaluation Date of Evaluation: 07/28/16 Time of Evaluation: 07:30 - Subjective Subjective: Medicine progress note for Dr Beltran and Dr Porter service. Patient with no overnight acute events. Patient reports feeling better. Patient denies cp, sob, fever or chills. Patient tolerating po, denies n/v/d. Patient able to speak in full sentences. Objective - Vital Signs/Intake and Output Vital Signs (last 24 hours): Temp Pulse Resp BP Pulse Ox 99.6 F 102 H 21 137/67 94 L 07/28/16 07:47 07/28/16 07:47 07/28/16 07:47 07/28/16 09:31 07/28/16 07:47 Intake and Output: 07/28/16 07/28/16 06:59 18:59 Output Total 470 Balance -470 - Medications Medications: Current Medications Acetaminophen (Tylenol 325mg Tab) 650 mg PO Q4H PRN PRN Reason: Fever >100.4 F Last Admin: 07/28/16 06:17 Dose: 650 mg Acetylcysteine (Acetylcysteine 20%) 3 ml IH BID [facility] Last Admin: 07/28/16 11:45 Dose: 3 ml Albuterol/Ipratropium (Duoneb 3 Mg/0.5 Mg (3 Ml) Ud) 3 ml IH [id number] [facility] Last Admin: 07/28/16 11:45 Dose: 3 ml Aspirin (Ecotrin) 81 mg PO DAILY [facility] Last Admin: 07/28/16 09:28 Dose: 81 mg Atorvastatin Calcium (Lipitor) 20 mg PO DAILY [facility] Last Admin: 07/28/16 09:33 Dose: 20 mg Cholecalciferol (Vitamin D) 2,000 iu PO DAILY [facility] Last Admin: 07/28/16 09:34 Dose: 2,000 iu Cyanocobalamin (Vitamin B12 1000 Mcg Tab) 1,000 mcg PO BID [facility] Last Admin: 07/28/16 09:35 Dose: 1,000 mcg Docusate Sodium (Colace) 100 mg PO BID [facility] Last Admin: 07/28/16 09:27 Dose: 100 mg Ferrous Sulfate (Feosol) 324 mg PO BID [facility] Last Admin: 05/22/17 09:28 Dose: 324 mg Furosemide (Lasix) 40 mg IVP DAILY [facility] Last Admin: 07/28/16 09:31 Dose: 40 mg Guaifenesin (Robitussin) 100 mg PO Q4H PRN PRN Reason: Cough Last Admin: 07/28/16 06:18 Dose: 100 mg Heparin Sodium (Porcine) (Heparin) 5,000 units SC Q12 [facility] PRN Reason: Protocol Last Admin: 07/28/16 09:28 Dose: 5,000 units Sodium Chloride (Sodium Chloride 0.9%) 1,000 mls @ 75 mls/hr IV .[id number] [facility] Last Admin: 07/28/16 00:10 Dose: 75 mls/hr Meropenem 1g/NS 100mL IVPB (Meropenem 1g/Ns 100ml Ivpb) 1 gm in 100 mls @ 100 mls/hr IVPB Q12 [facility] PRN Reason: Protocol Stop: 08/09/16 22:01 Last Admin: 07/28/16 09:33 Dose: 100 mls/hr Daptomycin 670 mg/ Sodium (Chloride) 100 mls @ 100 mls/hr IV Q24H [facility] Stop: 08/01/16 11:01 Last Admin: 07/27/16 13:03 Dose: 100 mls/hr Insulin Human Regular (Humulin R Low) 0 units SC ACHS [facility] PRN Reason: Protocol Last Admin: 07/28/16 11:56 Dose: Not Given Levothyroxine Sodium (Synthroid) 75 mcg PO 0630 [facility] Last Admin: 07/28/16 06:19 Dose: 75 mcg Nystatin (Nystop Topical Powder) 0 gm TOP BID [facility] Last Admin: 07/28/16 09:33 Dose: 1 applic Ondansetron HCl (Zofran Inj) 4 mg IVP Q6H PRN PRN Reason: Nausea/Vomiting Pantoprazole Sodium (Protonix Inj) 40 mg IVP DAILY [facility] Last Admin: 07/28/16 09:33 Dose: 40 mg Potassium Chloride (K-Dur 20 Meq Er Tab) 20 meq PO BRK [facility] Last Admin: 07/28/16 09:31 Dose: 20 meq Silver Sulfadiazine (Silvadene 1% 20 Gm) 1 ea TOP BID [facility] Last Admin: 07/28/16 09:34 Dose: 1 applic Tamsulosin HCl (Flomax) 0.4 mg PO DAILY [facility] - Labs Labs: 07/28/16 07:00 07/28/16 07:00 PT 10.3 Seconds (9.9-11.8) 07/24/16 23:00 INR 0.95 (0.93-1.08) 07/24/16 23:00 APTT 29.6 Seconds (23.7-30.8) 07/24/16 23:00 - Constitutional Appears: No Acute Distress - Head Exam Head Exam: ATRAUMATIC, NORMAL INSPECTION, NORMOCEPHALIC - Eye Exam Eye Exam: Normal appearance - ENT Exam ENT Exam: Mucous Membranes Dry - Neck Exam Neck Exam: Normal Inspection - Respiratory Exam Respiratory Exam: Clear to Ausculation Bilateral, NORMAL BREATHING PATTERN. absent: Prolonged Expiratory Phase, Rales, Rhonchi, Wheezes, Respiratory Distress - Cardiovascular Exam Cardiovascular Exam: REGULAR RHYTHM, RRR, +S1, +S2 - GI/Abdominal Exam GI & Abdominal Exam: Soft, Normal Bowel Sounds. absent: Distended (obese abdomen. ), Firm, Guarding, Rigid, Tenderness - Extremities Exam Extremities Exam: Pedal Edema - Neurological Exam Neurological Exam: Alert, Awake, Oriented x3 - Psychiatric Exam Psychiatric exam: Normal Affect, Normal Mood - Skin Skin Exam: Dry, Normal Color, Warm Additional comments: Multiple stage 3 decubitus ulcers. Chelecystectomy tube in place, draining biliray fluid Briones catheter in place, draining urine. Assessment and Plan - Assessment and Plan (Free Text) Assessment: Patient is a 75 y/o F with PMH of HTN, CHF, DM, morbidly obese with BMI 47, hypothyroidism, s/p hysterectomy with cholecystectomy tube, s/p bilateral knee replacements, dyslipidemia, history of TIA, history of chronic lower extremity cellulites, degenerative arthritis, chronic indwelling Briones catheter, bed bound and halfway resident admitted with sepsis with multiple sources. Plan: 1) Sepsis secondary to multiple sources- UTI with chronic indwelling Briones catheter, stage 3 decubitus ulcers, patient had picc line ( now removed), cholecystectomy tube, from halfway. - Leukocytosis trended up and afebrile for the last 12 hrs. - Urin cx growing Proteus, bcx growing Proteus and klebsiella and enterococcus. - Hemodynamically stable - NS@ 75 ml/hr - ID following - on daptomycin and merrem 2) Stage 3 decubitus ulcer - wound care as per surgery 3) COPD - continue duoneb and mucomyst - continue robitussin for cough 4) Chronic normocytic anemia 5) Chronic constipation - continue colace 6) CAD- continue asa and lipitor lasix ivp 40 mg echo pending 7) Hypothyroidism- continue synthroid 8) Cholecystectomy tube - - Continue to drain - Gi consult 9) DM - Carb controlled diet - ISS - Accuchecks ACHS. 10) DVT and gi prophylaxis: heparin sc and protonix 11) Dispo- [facility] once medically optimized. Patient seen, examined, case discussed with Dr Beltran. <Roosevelt Beltran - Last Filed: 08/10/16 19:06> Objective - Vital Signs/Intake and Output Vital Signs (last 24 hours): Temp Pulse Resp BP Pulse Ox 99.3 F 113 H 22 140/70 95 07/31/16 07:56 07/31/16 07:56 07/31/16 07:56 07/31/16 10:34 07/31/16 07:56 - Labs Labs: 07/31/16 06:00 07/31/16 06:00 PT 10.3 Seconds (9.9-11.8) 07/24/16 23:00 INR 0.95 (0.93-1.08) 07/24/16 23:00 APTT 29.6 Seconds (23.7-30.8) 07/24/16 23:00 Attending/Attestation - Attestation I have personally seen and examined this patient.: Yes I have fully participated in the care of the patient.: Yes I have reviewed all pertinent clinical information, including history, physical exam and plan: Yes Notes (Text): 08/10/16 19:06 Medical record note made by the resident after discussion with my direction and input after the patient was personally seen and examined by me. I have reviewed the chart and agree that the record accurately reflects by personal performance of the history, physical exam, data review, and medical decision-making, in the course for the patient. I have also personally directed the plan of care.
[2016-07-28] MEDS: DAPTOmycin 670 MG in Sodium Chloride 0.9% 100 ML IV SCH (13:36)
--- NOTE | 2016-07-28 13:49 | PN ---
DATE: 07/28/2016 The patient had an open cholecystectomy about a month ago. There are [address] Initially, there was a little flash of bile and now there is a small amount of bile coming from the drains. A s econd drain was placed by Dr. Cui. Spoke with Dr. Duncan, who is going to try an ERCP. Milton will be removed electively. The liver functions are completely normal now. Miguel Ángel Elias MD cc: [id number] TT: 07/28/2016 13:48:41 Confirmation # [id number] Dictation # [id number] en
--- NOTE | 2016-07-28 14:35 | CP.PCM.PN ---
Subjective - Date & Time of Evaluation Date of Evaluation: 07/28/16 Time of Evaluation: 11:10 - Subjective Subjective: Comfortable in bed, not in distress, afebrile, no nausea, no diarrhea. Objective - Vital Signs/Intake and Output Vital Signs (last 24 hours): Temp Pulse Resp BP Pulse Ox 99.6 F 102 H 21 137/67 94 L 07/28/16 07:47 07/28/16 07:47 07/28/16 07:47 07/28/16 09:31 07/28/16 07:47 Intake and Output: 07/28/16 07/28/16 06:59 18:59 Output Total 470 Balance -470 - Medications Medications: Current Medications Acetaminophen (Tylenol 325mg Tab) 650 mg PO Q4H PRN PRN Reason: Fever >100.4 F Last Admin: 07/28/16 06:17 Dose: 650 mg Acetylcysteine (Acetylcysteine 20%) 3 ml IH BID [facility] Last Admin: 07/28/16 11:45 Dose: 3 ml Albuterol/Ipratropium (Duoneb 3 Mg/0.5 Mg (3 Ml) Ud) 3 ml IH [id number] [facility] Last Admin: 07/28/16 11:45 Dose: 3 ml Aspirin (Ecotrin) 81 mg PO DAILY [facility] Last Admin: 07/28/16 09:28 Dose: 81 mg Atorvastatin Calcium (Lipitor) 20 mg PO DAILY [facility] Last Admin: 07/28/16 09:33 Dose: 20 mg Cholecalciferol (Vitamin D) 2,000 iu PO DAILY [facility] Last Admin: 07/28/16 09:34 Dose: 2,000 iu Cyanocobalamin (Vitamin B12 1000 Mcg Tab) 1,000 mcg PO BID [facility] Last Admin: 07/28/16 09:35 Dose: 1,000 mcg Docusate Sodium (Colace) 100 mg PO BID [facility] Last Admin: 07/28/16 09:27 Dose: 100 mg Ferrous Sulfate (Feosol) 324 mg PO BID [facility] Last Admin: 07/28/16 09:28 Dose: 324 mg Furosemide (Lasix) 40 mg IVP DAILY [facility] Guaifenesin (Robitussin) 100 mg PO Q4H PRN PRN Reason: Cough Last Admin: 07/28/16 06:18 Dose: 100 mg Heparin Sodium (Porcine) (Heparin) 5,000 units SC Q12 [facility] PRN Reason: Protocol Last Admin: 07/28/16 09:28 Dose: 5,000 units Sodium Chloride (Sodium Chloride 0.9%) 1,000 mls @ 75 mls/hr IV .[id number] [facility] Last Admin: 07/28/16 13:37 Dose: 75 mls/hr Piperacillin Sod/Tazobactam Sod (Zosyn 3.375 In Ns 100ml) 100 mls @ 200 mls/hr IVPB Q6 [facility] PRN Reason: Protocol Stop: 08/11/16 18:01 Ceftriaxone Sodium (Rocephin 1 Gram Ivpb) 1 gm in 100 mls @ 100 mls/hr IVPB DAILY [facility] PRN Reason: Protocol Stop: 08/11/16 14:46 Insulin Human Regular (Humulin R Low) 0 units SC ACHS [facility] PRN Reason: Protocol Last Admin: 07/28/16 11:56 Dose: Not Given Levothyroxine Sodium (Synthroid) 75 mcg PO 0630 [facility] Last Admin: 07/28/16 06:19 Dose: 75 mcg Nystatin (Nystop Topical Powder) 0 gm TOP BID [facility] Last Admin: 07/28/16 09:33 Dose: 1 applic Ondansetron HCl (Zofran Inj) 4 mg IVP Q6H PRN PRN Reason: Nausea/Vomiting Pantoprazole Sodium (Protonix Inj) 40 mg IVP DAILY [facility] Last Admin: 07/28/16 09:33 Dose: 40 mg Silver Sulfadiazine (Silvadene 1% 20 Gm) 1 ea TOP BID [facility] Last Admin: 07/28/16 09:34 Dose: 1 applic - Labs Labs: 07/28/16 07:00 07/28/16 07:00 PT 10.3 Seconds (9.9-11.8) 07/24/16 23:00 INR 0.95 (0.93-1.08) 07/24/16 23:00 APTT 29.6 Seconds (23.7-30.8) 07/24/16 23:00 - Constitutional Appears: Non-toxic, No Acute Distress - Head Exam Head Exam: NORMAL INSPECTION - ENT Exam ENT Exam: Mucous Membranes Moist - Neck Exam Neck Exam: absent: Lymphadenopathy, Meningismus - Respiratory Exam Respiratory Exam: Decreased Breath Sounds - Cardiovascular Exam Cardiovascular Exam: +S1, +S2 - GI/Abdominal Exam GI & Abdominal Exam: Soft. absent: Tenderness Additional comments: abdominal drain in place with clear yellowish fluid Assessment and Plan - Assessment and Plan (Free Text) Plan: Assessment Sepsis due to Proteus, Klebsiella and E. faecalis bacteremia, R/O PICC line as the source; no evidence of intra-abdominal infection on CT abdomen and pelvis and urinalysis does not show pyuria making UTI unlikely; S/P PICC line removal right chest wall edema, etiology unclear history of acute severe rhabdomyolysis history of acute gangrenous cholecystitis/ biliary tree infection in a patient with biliary tree stones S/P lap cholecystectomy - grew Kleb oxytoca, pneumoniae , and Proteus mirabilis - patient with probable gallbladder fossa abscess post- op S/P CT-guided drainage HTN chronic CHF DM morbid obesity with BMI 45 hypothyroidism S/P hysterectomy S/P bilateral knee replacements dyslipidemia history of TIA dyslipidemia history of chronic lower extremity cellulitis degenerative arthritis Plan change antibiotics to Zosyn and Rocephin based on susceptibilities; will need at least 14 days of therapy Will monitor clinically
[2016-07-28] MEDS: Piperacillin/Tazobact 3.375 gm 100 ML IVPB SCH ×2 (17:36→22:59)
[2016-07-28] MEDS: cefTRIAXone 1 gm 1 GM/100 ML BAG IVPB SCH (17:37)
--- NOTE | 2016-07-28 18:07 | CON ---
DATE: 07/28/2016 Seen and examined at the bedside earlier today. REQUEST FOR CONSULT: T-tube drainage. HISTORY OF PRESENT ILLNESS: This is a 75-year-old female with a past medical history of diabetes nhan litus, CHF, DVT, TIA and right brachial plexus injury, came from the alf with complaints of productive cough for over a week. The patient was recently discharged from [facility] status post fall and severe rhabdomyolysis. As the patient developed a right brachial plexus injury, she also had a gangr enous gallbladder, status post cholecystectomy and status post abscess with CT-guided drainage. The patient denies any shortness of breath, chest pain. No abdominal pain. On admission, the patient di d complain of shortness of breath and not feeling well. No reports of any overt GI bleed, fever or c hills. The patient still has 2 drains and now it is noticed that her drain has bile coming out of th e drains. PAST MEDICAL HISTORY: As stated above, obesity, hypertension, CHF, DVT, diabetes mellitus 2, hyperli pidemia, TIA, hypothyroidism, chronic lower extremity cellulitis, right brachial plexus injury, obstr uctive sleep apnea, history of gastric ulcer. PAST SURGICAL HISTORY: Knee replacement, hysterectomy and cholecystectomy. SOCIAL HISTORY: Former smoker, occasional alcohol use. Denies any substance abuse. ALLERGIES: No known drug allergies. MEDICATIONS: Reviewed as per MAR. REVIEW OF SYSTEMS: Reviewed with positive findings, see HPI. VITAL SIGNS: Temperature is 99.6, blood pressure is 137/67, respirations 21, 94 on O2 saturation. LABORATORY DATA: WBC is 12.9, H and H are 8.6 and 26.8, platelet count is 340. PT from 07/24 is 10. 3, INR is 0.95, PTT 29.6. Sodium is 135, K is 3.9, BUN 31, creatinine is 1.3. Liver enzymes are wit hin normal limits. Blood cultures: Positive K. pneumoniae and Proteus mirabilis. Urine culture pos itive for Proteus mirabilis. The patient had CT scan of abdomen, chest and pelvis without contrast o n 07/24 and that showed diverticulosis without acute inflammatory component or other associated patho logical process, progressive edema about the anterior right chest wall and right upper extremity, no drainable collection. Cardiomegaly, status post percutaneous catheter placement to the gallbladder f zandra. No residual fluid collection identified. Also, had extremity ultrasound on 07/24 and that mk wed no sonographic evidence for DVT in the right upper extremity. Lung scan nuclear: Lung scan show s low probability ventilation perfusion scan for pulmonary embolism. PHYSICAL EXAMINATION: HEENT: Sclerae are anicteric. NECK: Supple. CARDIAC: S1, S2. LUNGS: Decreased breath sounds, but good air entry. No rales or wheeze. ABDOMEN: With bowel sounds, soft, obese, nontender, positive biliary drain in place. EXTREMITIES: Positive bilateral pedal edema. NEUROLOGIC: Awake, alert, and oriented. ASSESSMENT: A 75-year-old female with history of hypertension, diabetes mellitus, morbid obesity, re cent gangrenous gallbladder, status post cholecystectomy and also status post abscess with drain has a cholecystostomy tube with increased drain, admitted for sepsis with elevated WBC. The patient has stage III decubitus ulcers as well as PICC line, chronic constipation, chronic obstructive pulmonary disease, anemia, hypothyroidism, diabetes mellitus, coronary artery disease. PLAN: We will consider ERCP. We will discuss with Dr. Porter. The patient is currently on IV ant ibiotics of Zosyn. Will just start on ceftriaxone. The patient is getting IV fluids for hydration. Continue GI prophylaxis. She is on Protonix, on DVT prophylaxis heparin, on iron supplements, stool softeners and aspirin. Monitor liver functions and output. Thank you for this consult and for allowing us to participating in your patient's care. We will make further recommendations based upon patient's clinical course. The patient was seen and case discuss ed with Dr. Duncan. Sweetie BUNN cc: [id number] TT: 07/28/2016 18:06:02 Confirmation # [id number] Dictation # [id number] maribell
--- NOTE | 2016-07-28 18:51 | CARD ---
APPROVED REPORT EXAM: Two-dimensional and M-mode echocardiogram with Doppler and color Doppler. INDICATION SEPSIS 2D DIMENSIONS IVSd1.1 (0.7-1.1cm)LVDd3.6 (3.9-5.9cm) PWd1.1 (0.7-1.1cm)LVDs2.6 (2.5-4.0cm) FS (%) 28.5 %LVEF (%)56.0 (>50%) M-Mode DIMENSIONS Aortic Root3.30 (2.2-3.7cm)Aortic Cusp Exc.1.80 (1.5-2.0cm) Aortic Valve AoV Peak Dfqlwvvv554.0cm/sAoV VTI33.4cmAO Peak GR.23mmHg AO Mean GR.11mmHg Mitral Valve E/A ratio0.0 TDI E/Lateral E'0.0E/Medial E'0.0 Pulmonary Valve PV Peak Ahokhzlf715.0cm/sPV Peak Grad.6mmHg Tricuspid Valve TR Peak [id number]/sRAP [id number] Peak Gr.32mmHg [id number] LEFT VENTRICLE The left ventricle is normal size. There is normal left ventricular wall thickness. The left ventricular function is normal.EF-55-60% There is normal LV segmental wall motion. Transmitral Doppler flow pattern is Grade III-reversible restrictive diastolic dysfunction. No left ventricle thrombus noted on this study. There is no ventricular septal defect visualized. There is no left ventricular aneurysm. There is no mass noted in the left ventricle. RIGHT VENTRICLE The right ventricle is borderline dilated. There is normal right ventricular wall thickness. The right ventricular systolic function is normal. ATRIA The left atrium size is normal. The right atrium size is normal. The interatrial septum is intact with no evidence for an atrial septal defect. AORTIC VALVE The aortic valve is thickened but opens well. The aortic valve is moderately sclerotic. No aortic regurgitation is present. Aortic Sclerosis Vs Mild There is no aortic valvular vegetation. MITRAL VALVE The mitral valve is thickened but opens well. Mitral annular calcification is mild to moderate. Mitral regurgitation is trace. There is no mitral valve stenosis. There is no evidence of mitral valve prolapse. TRICUSPID VALVE The tricuspid valve leaflets are thickened , but open well. There is trace to mild tricuspid regurgitation.RVSP-42 mmof Hg There is no tricuspid valve stenosis. There is no tricuspid valve prolapse or vegetation. PULMONIC VALVE The pulmonary valve is normal in structure. GREAT VESSELS The aortic root is normal in size. The ascending aorta is normal in size. The pulmonary artery is normal. The IVC is normal in size and collapses >50% with inspiration. PERICARDIAL EFFUSION There is no pleural effusion. There is no pericardial effusion. <Conclusion> The left ventricle is normal size. There is normal left ventricular wall thickness. The left ventricular function is normal.EF-55-60% Mitral regurgitation is trace. There is trace to mild tricuspid regurgitation.RVSP-42 mmof Hg No thrombus or vegetation noted.
[2016-07-29] MEDS: Albuterol-Ipratrop 3 mg / 0.5 (3 ml) UD IH SCH ×6 (00:58→23:45)
[2016-07-29] MEDS: Sodium Chloride 0.9% 1,000 ML IV SCH ×2 (02:00→18:57)
--- NOTE | 2016-07-29 02:42 | CON ---
DATE: 07/28/2016 ADDENDUM This is an addendum to the consultation report dictated by Sweetie Reece NP. SUBJECTIVE: The patient was seen and evaluated earlier today. Discussed with the patient's brother, Bunny Duarte. Also discussed with Dr. Mark Porter. PHYSICAL EXAMINATION: The patient does have a slightly distended abdomen. It has a drainage tube in the right upper quadrant area draining clear bile. Significant drainage noted. IMPRESSION: The patient is status post open cholecystectomy, had a abscess which has been drained. PLAN: Discussed with Dr. Elias. In view of the biliary leak, it is reasonable to consider ERCP and stent placement if needed. Thank you very much for allowing us to participate in the care of this patient. Kavon Duncan MD cc: [id number] TT: 07/29/2016 02:42:08 Confirmation # [id number] Dictation # [id number] maribell SALGADO
[2016-07-29] MEDS: Piperacillin/Tazobact 3.375 gm 100 ML IVPB SCH ×3 (05:30→18:57)
[2016-07-29] MEDS: Levothyroxine 75 MCG TAB PO SCH (05:31)
--- NOTE | 2016-07-29 05:52 | CP.PCM.CON ---
History of Present Illness - History of Present Illness History of Present Illness: Surgery consult for Dr. Elias 75F obese female with PMH of gangrenous cholecystitis s/p lap janie converted to open on 07/03 had intraabdominal abscess and had CT guided drain placed on 07/09. Initially 30cc serosanguinous fluids were drained. Pt continues to drain moderate amount and now is bilious. Pt deneis F/C/n/V/D/CP/SOB. Pt is morbidly obese and surgery is also following for sacral decubitous ulcer. LFT is wnl. Pt is scheduled to go for ERCP today. Review of Systems - Review of Systems Review of Systems: See HPI Past Patient History - Infectious Disease Hx of Infectious Diseases: None - Past Medical History & Family History Past Medical History?: Yes - Past Social History Smoking Status: Former Smoker - CARDIAC Hx Congestive Heart Failure: Yes Hx Hypertension: Yes - NEUROLOGICAL Hx Transient Ischemic Attacks (TIA): Yes - ENDOCRINE/METABOLIC Hx Diabetes Mellitus Type 2: Yes Hx Hypothyroidism: Yes - HEMATOLOGICAL/ONCOLOGICAL Hx Blood Disorders: Yes Other/Comment: DVT - INTEGUMENTARY Other/Comment: cellulitis bilateral lower legs,red, dry flakey and hard skin ble , +4 edema, dry skin to feet, multiple bruises to abd, multiple scabs to abd from recent gb sx, abd dranage bag, red skin to abd fold and under both breasts , right arm swelling and paralysis +4 edema to hand, stage 2 pressure ulcer open wound to right hand between 4th and 5th fingers secondary to lymphodema - MUSCULOSKELETAL/RHEUMATOLOGICAL Hx Arthritis: Yes - GASTROINTESTINAL Hx Gastrointestinal Disorders: Yes (GI BLEED) Hx Ulcer: Yes - GENITOURINARY/GYNECOLOGICAL Hx Genitourinary Disorders: No - PSYCHIATRIC Hx Psychophysiologic Disorder: No Hx Emotional Abuse: No Hx Physical Abuse: No - SURGICAL HISTORY Hx Surgeries: Yes Hx Cholecystectomy: Yes (with drain r upper abd for abcess) Hx Hysterectomy: Yes (1983) Other/Comment: b/l knee replacement right 2012, left 2003, picc, cbd poly p, ercp - ANESTHESIA Hx Anesthesia Reactions: No Hx Malignant Hyperthermia: No Meds Allergies/Adverse Reactions: Allergies Allergy/AdvReac Type Severity Reaction Status Date / Time No Known Allergies Allergy Verified 06/29/16 12:08 - Medications Medications: Current Medications Acetaminophen (Tylenol 325mg Tab) 650 mg PO Q4H PRN PRN Reason: Fever >100.4 F Last Admin: 07/28/16 06:17 Dose: 650 mg Acetylcysteine (Acetylcysteine 20%) 3 ml IH BID [facility] Last Admin: 07/28/16 19:40 Dose: 3 ml Albuterol/Ipratropium (Duoneb 3 Mg/0.5 Mg (3 Ml) Ud) 3 ml IH [id number] [facility] Last Admin: 07/29/16 00:58 Dose: 3 ml Aspirin (Ecotrin) 81 mg PO DAILY [facility] Last Admin: 07/28/16 09:28 Dose: 81 mg Atorvastatin Calcium (Lipitor) 20 mg PO DAILY [facility] Last Admin: 07/28/16 09:33 Dose: 20 mg Cholecalciferol (Vitamin D) 2,000 iu PO DAILY [facility] Last Admin: 07/28/16 09:34 Dose: 2,000 iu Cyanocobalamin (Vitamin B12 1000 Mcg Tab) 1,000 mcg PO BID [facility] Last Admin: 07/28/16 17:36 Dose: 1,000 mcg Docusate Sodium (Colace) 100 mg PO BID [facility] Last Admin: 07/28/16 09:27 Dose: 100 mg Ferrous Sulfate (Feosol) 324 mg PO BID [facility] Last Admin: 07/28/16 17:30 Dose: 324 mg Furosemide (Lasix) 40 mg IVP DAILY [facility] Last Admin: 07/28/16 17:34 Dose: 40 mg Guaifenesin (Robitussin) 100 mg PO Q4H PRN PRN Reason: Cough Last Admin: 07/28/16 06:18 Dose: 100 mg Heparin Sodium (Porcine) (Heparin) 5,000 units SC Q12 [facility] PRN Reason: Protocol Last Admin: 07/28/16 22:01 Dose: 5,000 units Sodium Chloride (Sodium Chloride 0.9%) 1,000 mls @ 75 mls/hr IV .[id number] [facility] Last Admin: 07/29/16 02:00 Dose: 75 mls/hr Piperacillin Sod/Tazobactam Sod (Zosyn 3.375 In Ns 100ml) 100 mls @ 200 mls/hr IVPB Q6 [facility] PRN Reason: Protocol Stop: 08/11/16 18:01 Last Admin: 07/29/16 05:30 Dose: 200 mls/hr Ceftriaxone Sodium (Rocephin 1 Gram Ivpb) 1 gm in 100 mls @ 100 mls/hr IVPB DAILY [facility] PRN Reason: Protocol Stop: 08/11/16 14:46 Last Admin: 07/28/16 17:37 Dose: 100 mls/hr Insulin Human Regular (Humulin R Low) 0 units SC ACHS [facility] PRN Reason: Protocol Last Admin: 07/28/16 22:01 Dose: Not Given Levothyroxine Sodium (Synthroid) 75 mcg PO 0630 [facility] Last Admin: 07/29/16 05:31 Dose: 75 mcg Nystatin (Nystop Topical Powder) 0 gm TOP BID [facility] Last Admin: 07/28/16 17:35 Dose: 1 applic Ondansetron HCl (Zofran Inj) 4 mg IVP Q6H PRN PRN Reason: Nausea/Vomiting Pantoprazole Sodium (Protonix Inj) 40 mg IVP DAILY [facility] Last Admin: 07/28/16 09:33 Dose: 40 mg Silver Sulfadiazine (Silvadene 1% 20 Gm) 1 ea TOP BID [facility] Last Admin: 07/28/16 17:35 Dose: 1 applic Physical Exam - Constitutional Appears: No Acute Distress - Head Exam Head Exam: ATRAUMATIC, NORMAL INSPECTION, NORMOCEPHALIC - Eye Exam Eye Exam: EOMI, Normal appearance, PERRL Pupil Exam: NORMAL ACCOMODATION, PERRL - ENT Exam ENT Exam: Mucous Membranes Moist, Normal Exam - Neck Exam Neck exam: Positive for: Normal Inspection - Respiratory Exam Respiratory Exam: Clear to Auscultation Bilateral, NORMAL BREATHING PATTERN - Cardiovascular Exam Cardiovascular Exam: REGULAR RHYTHM - GI/Abdominal Exam GI & Abdominal Exam: Soft. absent: Distended, Firm, Guarding, Rebound, Rigid, Tenderness Additional comments: Drain in place on RUQ. Bilious output. obese - Extremities Exam Extremities exam: Positive for: pedal edema - Neurological Exam Neurological exam: Alert, CN II-XII Intact, Oriented x3, Reflexes Normal - Psychiatric Exam Psychiatric exam: Normal Affect, Normal Mood - Skin Skin Exam: Dry, Erythema, Intact, Warm Additional comments: around the decubitous ulcer Results - Vital Signs Recent Vital Signs: Last Vital Signs Temp 99 F 07/28/16 16:00 Pulse 99 H 07/28/16 22:00 Resp 22 07/28/16 16:00 BP 117/60 07/28/16 17:34 Pulse Ox 96 07/28/16 16:00 - Labs Result Diagrams: 07/28/16 07:00 07/28/16 07:00 Labs: Laboratory Results - last 24 hr 07/25/16 07/25/16 07/25/16 11:56 16:44 21:36 WBC RBC Hgb Hct MCV MCH MCHC RDW Plt Count MPV Gran % Lymph % (Auto) Richardson % (Auto) Eos % (Auto) Baso % (Auto) Gran # Lymph # Richardson # Eos # Baso # Sodium Potassium Chloride Carbon Dioxide Anion Gap BUN Creatinine Est GFR ( Amer) Est GFR (Non-Af Amer) POC Glucose (mg/dL) 96 94 86 Random Glucose Calcium Total Bilirubin AST ALT Alkaline Phosphatase Total Protein Albumin Globulin Albumin/Globulin Ratio 07/26/16 07/26/16 07/26/16 07:28 11:46 16:21 WBC RBC Hgb Hct MCV MCH MCHC RDW Plt Count MPV Gran % Lymph % (Auto) Richardson % (Auto) Eos % (Auto) Baso % (Auto) Gran # Lymph # Richardson # Eos # Baso # Sodium Potassium Chloride Carbon Dioxide Anion Gap BUN Creatinine Est GFR ( Amer) Est GFR (Non-Af Amer) POC Glucose (mg/dL) 77 117 H 102 Random Glucose Calcium Total Bilirubin AST ALT Alkaline Phosphatase Total Protein Albumin Globulin Albumin/Globulin Ratio 07/26/16 07/27/16 07/27/16 21:48 07:26 11:00 WBC RBC Hgb Hct MCV MCH MCHC RDW Plt Count MPV Gran % Lymph % (Auto) Richardson % (Auto) Eos % (Auto) Baso % (Auto) Gran # Lymph # Richardson # Eos # Baso # Sodium Potassium Chloride Carbon Dioxide Anion Gap BUN Creatinine Est GFR ( Amer) Est GFR (Non-Af Amer) POC Glucose (mg/dL) 134 H 97 127 H Random Glucose Calcium Total Bilirubin AST ALT Alkaline Phosphatase Total Protein Albumin Globulin Albumin/Globulin Ratio 07/27/16 07/27/16 07/28/16 16:52 21:56 07:00 WBC 12.9 H RBC 2.78 L Hgb 8.6 L Hct 26.8 L MCV 96.4 MCH 30.9 MCHC 32.1 RDW 14.9 H Plt Count 340 MPV 9.8 Gran % 78.4 H Lymph % (Auto) 5.4 L Richardson % (Auto) 12.7 H Eos % (Auto) 3.3 Baso % (Auto) 0.2 Gran # 10.09 H Lymph # 0.7 L Richardson # 1.6 H Eos # 0.4 Baso # 0.02 Sodium Potassium Chloride Carbon Dioxide Anion Gap BUN Creatinine Est GFR ( Amer) Est GFR (Non-Af Amer) POC Glucose (mg/dL) 132 H 103 Random Glucose Calcium Total Bilirubin AST ALT Alkaline Phosphatase Total Protein Albumin Globulin Albumin/Globulin Ratio 07/28/16 07/28/16 07/28/16 07:00 07:05 11:25 WBC RBC Hgb Hct MCV MCH MCHC RDW Plt Count MPV Gran % Lymph % (Auto) Richardson % (Auto) Eos % (Auto) Baso % (Auto) Gran # Lymph # Richardson # Eos # Baso # Sodium 135 Potassium 3.9 Chloride 97 Carbon Dioxide 30 Anion Gap 12 BUN 31 H Creatinine 1.3 Est GFR ( Amer) 48 Est GFR (Non-Af Amer) 40 POC Glucose (mg/dL) 104 128 H Random Glucose 95 Calcium 10.2 Total Bilirubin 0.5 AST 29 ALT 32 Alkaline Phosphatase 105 Total Protein 6.5 Albumin 3.0 Globulin 3.5 Albumin/Globulin Ratio 0.8 L Assessment & Plan - Assessment and Plan (Free Text) Assessment: Bile leak s/p open cholecystectomy s/p drain placement for GB fossa abscess -F/U ERCP -MOnitor output -MOnitor VS -MOnitor LFT -ABX per ID -DVT, GI ppx -Jany removal -We will continue to follow Will RAQUEL Elias
[2016-07-29 06:44] LABS: ADD MANUAL DIFF? NO
[2016-07-29 06:53] LABS: BASO # 0.02 K/mm3 (0.0-2.0); BASO % 0.2 % (0.0-3.0); EOS # 1.2 (0.0-0.7); EOS % 10.9 % (1.5-5.0); GRAN # 8.25 (1.4-6.5); GRAN % 72.7 % (50.0-68.0); HEMATOCRIT 25.2 % (36.0-48.0); LYMPH # 0.7 (1.2-3.4); LYMPH % 6.1 % (22.0-35.0); MEAN CELL VOLUME 96.6 fL (80.0-105.0); MEAN CORPUSCULAR HEMOGLOBIN 30.7 pg (25.0-35.0); MEAN CORPUSCULAR HGB CONC 31.7 g/dl (31.0-37.0); MEAN PLATELET VOLUME 9.5 fl (7.0-11.0); MONO # 1.1 (0.1-0.6); MONO % 10.1 % (1.0-6.0); PLATELET COUNT 316 10^3/uL (120.0-450.0); RED CELL DISTRIBUTION WIDTH 15.1 % (11.5-14.5); WHITE BLOOD COUNT 11.3 10^3/ul (4.5-11.0)
[2016-07-29] MEDS ORDERED: Lidocaine 2% Inj (20ml) ONE (07:41)
[2016-07-29] MEDS: Acetylcysteine 20% Inhal Soln (4ml) IH SCH ×3 (08:13→19:17)
[2016-07-29 08:52] LABS: CALCIUM 9.7 mg/dL (8.4-10.5); POTASSIUM 3.8 mmol/L (3.6-5.0)
[2016-07-29] MEDS ORDERED: Iohexol 240 (50 ml) ONE (09:31)
[2016-07-29] MEDS ORDERED: Indomethacin 50 MG Suppository PR ONE (09:31)
--- NOTE | 2016-07-29 09:36 | CP.PCM.PN ---
<Radha Boyd - Last Filed: 07/29/16 16:47> Subjective - Date & Time of Evaluation Date of Evaluation: 07/29/16 Time of Evaluation: 07:35 - Subjective Subjective: Medicine progress note for Dr Porter and Dr Beltran. Patient with no acute events overnight. Patient denies sob, cp, headache or dizziness. Patient to undergo ercp today, and picc line insertion. Objective - Vital Signs/Intake and Output Vital Signs (last 24 hours): Temp Pulse Resp BP Pulse Ox 97.6 F 87 22 128/66 94 L 07/29/16 08:28 07/29/16 08:28 07/29/16 08:28 07/29/16 08:28 07/29/16 08:28 Intake and Output: 07/29/16 07/29/16 06:59 18:59 Intake Total 360 Output Total 860 Balance -500 - Medications Medications: Current Medications Acetaminophen (Tylenol 325mg Tab) 650 mg PO Q4H PRN PRN Reason: Fever >100.4 F Last Admin: 07/28/16 06:17 Dose: 650 mg Acetylcysteine (Acetylcysteine 20%) 3 ml IH BID [facility] Last Admin: 07/29/16 08:13 Dose: Not Given Albuterol/Ipratropium (Duoneb 3 Mg/0.5 Mg (3 Ml) Ud) 3 ml IH [id number] [facility] Last Admin: 07/29/16 08:13 Dose: Not Given Aspirin (Ecotrin) 81 mg PO DAILY [facility] Last Admin: 07/28/16 09:28 Dose: 81 mg Atorvastatin Calcium (Lipitor) 20 mg PO DAILY [facility] Last Admin: 07/28/16 09:33 Dose: 20 mg Cholecalciferol (Vitamin D) 2,000 iu PO DAILY [facility] Last Admin: 07/28/16 09:34 Dose: 2,000 iu Cyanocobalamin (Vitamin B12 1000 Mcg Tab) 1,000 mcg PO BID [facility] Last Admin: 07/28/16 17:36 Dose: 1,000 mcg Docusate Sodium (Colace) 100 mg PO BID [facility] Last Admin: 07/28/16 09:27 Dose: 100 mg Ferrous Sulfate (Feosol) 324 mg PO BID [facility] Last Admin: 07/28/16 17:30 Dose: 324 mg Furosemide (Lasix) 40 mg IVP DAILY [facility] Last Admin: 07/28/16 17:34 Dose: 40 mg Guaifenesin (Robitussin) 100 mg PO Q4H PRN PRN Reason: Cough Last Admin: 07/28/16 06:18 Dose: 100 mg Heparin Sodium (Porcine) (Heparin) 5,000 units SC Q12 [facility] PRN Reason: Protocol Last Admin: 07/28/16 22:01 Dose: 5,000 units Sodium Chloride (Sodium Chloride 0.9%) 1,000 mls @ 75 mls/hr IV .[id number] [facility] Last Admin: 07/29/16 02:00 Dose: 75 mls/hr Piperacillin Sod/Tazobactam Sod (Zosyn 3.375 In Ns 100ml) 100 mls @ 200 mls/hr IVPB Q6 [facility] PRN Reason: Protocol Stop: 08/11/16 18:01 Last Admin: 07/29/16 05:30 Dose: 200 mls/hr Ceftriaxone Sodium (Rocephin 1 Gram Ivpb) 1 gm in 100 mls @ 100 mls/hr IVPB DAILY [facility] PRN Reason: Protocol Stop: 08/11/16 14:46 Last Admin: 07/28/16 17:37 Dose: 100 mls/hr Insulin Human Regular (Humulin R Low) 0 units SC ACHS [facility] PRN Reason: Protocol Last Admin: 07/28/16 22:01 Dose: Not Given Levothyroxine Sodium (Synthroid) 75 mcg PO 0630 [facility] Last Admin: 07/29/16 05:31 Dose: 75 mcg Nystatin (Nystop Topical Powder) 0 gm TOP BID [facility] Last Admin: 07/28/16 17:35 Dose: 1 applic Ondansetron HCl (Zofran Inj) 4 mg IVP Q6H PRN PRN Reason: Nausea/Vomiting Pantoprazole Sodium (Protonix Ec Tab) 40 mg PO ACB [facility] Silver Sulfadiazine (Silvadene 1% 20 Gm) 1 ea TOP BID [facility] Last Admin: 07/28/16 17:35 Dose: 1 applic - Labs Labs: 07/29/16 06:15 07/29/16 06:15 PT 10.3 Seconds (9.9-11.8) 07/24/16 23:00 INR 0.95 (0.93-1.08) 07/24/16 23:00 APTT 29.6 Seconds (23.7-30.8) 07/24/16 23:00 - Constitutional Appears: No Acute Distress, Older Than Stated Age, Chronically Ill - Head Exam Head Exam: ATRAUMATIC, NORMAL INSPECTION, NORMOCEPHALIC - Eye Exam Eye Exam: EOMI, Normal appearance, PERRL. absent: Scleral icterus - ENT Exam ENT Exam: Mucous Membranes Moist - Neck Exam Neck Exam: Normal Inspection - Respiratory Exam Respiratory Exam: Clear to Ausculation Bilateral, NORMAL BREATHING PATTERN. absent: Rales, Rhonchi, Wheezes, Respiratory Distress, Stridor - Cardiovascular Exam Cardiovascular Exam: REGULAR RHYTHM, RRR, +S1, +S2 - GI/Abdominal Exam GI & Abdominal Exam: Soft, Normal Bowel Sounds. absent: Distended, Firm, Guarding, Rigid, Tenderness Additional comments: + cholecystectomy tubes in place, draining biliary fluid. obese abdomen. - Extremities Exam Extremities Exam: Pedal Edema - Neurological Exam Neurological Exam: Alert, Awake, Oriented x3 - Psychiatric Exam Psychiatric exam: Anxious, Normal Mood - Skin Skin Exam: Normal Color, Warm Additional comments: stage 3 decubitus ulcer in the back - lumbar and sacral region. Assessment and Plan - Assessment and Plan (Free Text) Assessment: Patient is a 75 y/o F with PMH of HTN, CHF, DM, morbidly obese with BMI 47, hypothyroidism, s/p hysterectomy with cholecystectomy tube, s/p bilateral knee replacements, dyslipidemia, history of TIA, history of chronic lower extremity cellulites, degenerative arthritis, chronic indwelling Briones catheter, bed bound and [facility] resident admitted with sepsis with multiple sources. Plan: 1) Sepsis secondary to multiple sources- UTI with chronic indwelling Briones catheter, stage 3 decubitus ulcers, patient had picc line ( now removed), cholecystectomy tubes, from [facility]. - Leukocytosis trendind down, patient remains afebrile. - Urin cx growing Proteus, bcx growing Proteus and klebsiella and enterococcus. - NS@ 75 ml/hr - ID following - on rocephin and zosyn. 2) Stage 3 decubitus ulcer - wound care as per surgery 3) COPD - continue duoneb and mucomyst - continue robitussin for cough 4) Chronic normocytic anemia - H/H at baseline of 8-9. - will continue to monitor. 5) Chronic constipation - continue colace 6) CAD- continue asa and Lipitor - echo with normal LVEF. Please see emr for full reports. - will d/c lasix for now. 7) Hypothyroidism- continue synthroid 8) Cholecystectomy tube - - Gi and surgery following - patient to go for ERCP today with possible stent placement. 9) DM - Carb controlled diet - ISS - Accuchecks ACHS. 10) DVT and gi prophylaxis: heparin sc and protonix 11) Dispo- [facility] once medically optimized. Patient seen, examined, case discussed with Dr Beltran. <Roosevelt Beltran - Last Filed: 08/20/16 14:56> Objective - Vital Signs/Intake and Output Vital Signs (last 24 hours): Temp Pulse Resp BP Pulse Ox 99.3 F 113 H 22 140/70 95 07/31/16 07:56 07/31/16 07:56 07/31/16 07:56 07/31/16 10:34 07/31/16 07:56 - Labs Labs: 07/31/16 06:00 07/31/16 06:00 PT 10.3 Seconds (9.9-11.8) 07/24/16 23:00 INR 0.95 (0.93-1.08) 07/24/16 23:00 APTT 29.6 Seconds (23.7-30.8) 07/24/16 23:00 Attending/Attestation - Attestation I have personally seen and examined this patient.: Yes I have fully participated in the care of the patient.: Yes I have reviewed all pertinent clinical information, including history, physical exam and plan: Yes Notes (Text): 08/20/16 14:56 Medical record note made by the resident after discussion with my direction and input after the patient was personally seen and examined by me. I have reviewed the chart and agree that the record accurately reflects by personal performance of the history, physical exam, data review, and medical decision-making, in the course for the patient. I have also personally directed the plan of care.
[2016-07-29] MEDS: Nystatin 100,000 Units/gm Topical Pow(15 gm) TOP SCH ×2 (10:17→18:56)
[2016-07-29] MEDS: Silver Sulfadiazine 1% Cream (20 gm) TOP SCH ×2 (10:18→18:56)
[2016-07-29] MEDS: Pantoprazole 40 mg EC Tab PO SCH (10:18)
[2016-07-29] MEDS: cefTRIAXone 1 gm 1 GM/100 ML BAG IVPB SCH (10:18)
[2016-07-29] MEDS: Insulin Reg-LOW-Coverage SC SCH ×4 (10:22→22:00)
[2016-07-29] MEDS ORDERED: Propofol 10 mg/ml Inj (20 ML) ONE (14:45)
[2016-07-29] MEDS ORDERED: Midazolam 2 MG/2 ML VIAL ONE (14:45)
[2016-07-29] MEDS ORDERED: Succinylcholine 200 mg/10 ml Inj IV ONE (16:51)
[2016-07-29] MEDS ORDERED: Rocuronium 10 mg/ml (5 ml) ONE (16:51)
[2016-07-29] MEDS ORDERED: Sodium Chloride 0.9% 1,000 ML IV SCH (17:15)
--- NOTE | 2016-07-29 18:59 | VASCULAR ---
PROCEDURE: Ultrasound and fluoroscopically placed left upper extremity PICC line. HISTORY: Sepsis. Limited IV access. Needs PICC [place] PHYSICIAN(S): Nathan Cui MD. TECHNIQUE: The relative risks and indications of the procedure were explained to the patient and consent obtained. The patient was placed supine on the arteriogram table and the left arm prepped and draped in the usual sterile fashion. A tourniquet was applied to the left axilla. 1% Xylocaine was used to anesthetize the skin and soft tissues at the puncture site above the elbow. The left basilic vein was punctured under direct ultrasound guidance with a micropuncture set. A 0.018 guidewire was advanced centrally and used to measure the length to the SVC/RA junction. A 5 [place] single-lumen PICC line 50 cm long was advanced to the SVC/RA junction. The catheter was flushed and secured. The patient tolerated the procedure well. IMPRESSION: 1. Ultrasound and fluoroscopically placed left upper extremity PICC line. A 5 [place] single-lumen PICC line 50 cm long was advanced to the SVC/RA junction.
--- NOTE | 2016-07-29 20:16 | CP.PCM.PN ---
Subjective - Date & Time of Evaluation Date of Evaluation: 07/29/16 Time of Evaluation: 12:20 - Subjective Subjective: Comfortable, afebrile, no abdominal pain, no diarrhea. Objective - Vital Signs/Intake and Output Vital Signs (last 24 hours): Temp Pulse Resp BP Pulse Ox 98.8 F 105 H 16 153/56 H 98 07/29/16 17:55 07/29/16 17:55 07/29/16 17:55 07/29/16 17:55 07/29/16 17:55 Intake and Output: 07/29/16 07/30/16 18:59 06:59 Output Total 600 Balance -600 - Medications Medications: Current Medications Acetaminophen (Tylenol 325mg Tab) 650 mg PO Q4H PRN PRN Reason: Fever >100.4 F Last Admin: 07/28/16 06:17 Dose: 650 mg Acetylcysteine (Acetylcysteine 20%) 3 ml IH BID [facility] Last Admin: 07/29/16 19:17 Dose: 3 ml Albuterol/Ipratropium (Duoneb 3 Mg/0.5 Mg (3 Ml) Ud) 3 ml IH [id number] [facility] Last Admin: 07/29/16 19:18 Dose: 3 ml Aspirin (Ecotrin) 81 mg PO DAILY [facility] Last Admin: 07/29/16 10:15 Dose: Not Given Atorvastatin Calcium (Lipitor) 20 mg PO DAILY [facility] Last Admin: 07/29/16 18:56 Dose: Not Given Cholecalciferol (Vitamin D) 2,000 iu PO DAILY [facility] Last Admin: 07/29/16 10:19 Dose: Not Given Cyanocobalamin (Vitamin B12 1000 Mcg Tab) 1,000 mcg PO BID [facility] Last Admin: 07/29/16 18:55 Dose: 1,000 mcg Docusate Sodium (Colace) 100 mg PO BID [facility] Last Admin: 07/29/16 18:55 Dose: 100 mg Ferrous Sulfate (Feosol) 324 mg PO BID [facility] Last Admin: 07/29/16 18:55 Dose: 324 mg Furosemide (Lasix) 40 mg IVP DAILY [facility] Last Admin: 07/29/16 18:56 Dose: Not Given Guaifenesin (Robitussin) 100 mg PO Q4H PRN PRN Reason: Cough Last Admin: 07/28/16 06:18 Dose: 100 mg Heparin Sodium (Porcine) (Heparin) 5,000 units SC Q12 [facility] PRN Reason: Protocol Last Admin: 07/29/16 10:15 Dose: Not Given Sodium Chloride (Sodium Chloride 0.9%) 1,000 mls @ 75 mls/hr IV .[id number] [facility] Last Admin: 07/29/16 18:57 Dose: 75 mls/hr Piperacillin Sod/Tazobactam Sod (Zosyn 3.375 In Ns 100ml) 100 mls @ 200 mls/hr IVPB Q6 [facility] PRN Reason: Protocol Stop: 08/11/16 18:01 Last Admin: 07/29/16 18:57 Dose: 200 mls/hr Ceftriaxone Sodium (Rocephin 1 Gram Ivpb) 1 gm in 100 mls @ 100 mls/hr IVPB DAILY [facility] PRN Reason: Protocol Stop: 08/11/16 14:46 Last Admin: 07/29/16 10:18 Dose: 100 mls/hr Insulin Human Regular (Humulin R Low) 0 units SC ACHS [facility] PRN Reason: Protocol Last Admin: 07/29/16 18:56 Dose: Not Given Levothyroxine Sodium (Synthroid) 75 mcg PO 0630 [facility] Last Admin: 07/29/16 05:31 Dose: 75 mcg Nystatin (Nystop Topical Powder) 0 gm TOP BID [facility] Last Admin: 07/29/16 18:56 Dose: 1 applic Ondansetron HCl (Zofran Inj) 4 mg IVP Q6H PRN PRN Reason: Nausea/Vomiting Pantoprazole Sodium (Protonix Ec Tab) 40 mg PO ACB [facility] Last Admin: 07/29/16 10:18 Dose: Not Given Silver Sulfadiazine (Silvadene 1% 20 Gm) 1 ea TOP BID [facility] Last Admin: 07/29/16 18:56 Dose: 1 applic - Labs Labs: 07/29/16 06:15 07/29/16 06:15 PT 10.3 Seconds (9.9-11.8) 07/24/16 23:00 INR 0.95 (0.93-1.08) 07/24/16 23:00 APTT 29.6 Seconds (23.7-30.8) 07/24/16 23:00 - Constitutional Appears: Non-toxic, No Acute Distress - Head Exam Head Exam: NORMAL INSPECTION - Respiratory Exam Respiratory Exam: Decreased Breath Sounds - Cardiovascular Exam Cardiovascular Exam: +S1, +S2 - GI/Abdominal Exam GI & Abdominal Exam: Soft. absent: Tenderness Additional comments: abdominal drain in place with clear yellowish fluid
--- NOTE | 2016-07-30 02:35 | PN ---
DATE: 07/29/2016 SUBJECTIVE: This patient underwent an upper GI endoscopy. This patient underwent ERCP today. The patient had a status post cholecystectomy for gangrenous gallbladder, had a biliary collection, had a drainage tube placement. Will continue to have the drainage. Suspected biliary leak since ERCP was requested. The patient initially had an EGD done, which is performed at the common bile duct. Is mildly dilated up to 11 mm. No filling defects noticed. The previous sphincterotomy appears to be open. The patient did have occlusion cholangiogram done, which showed biliary leak. The extravasation of the contrast through the cystic duct stump area. There was cm stent placed across the bile duct extending into the common bile duct. The patient tolerated the procedure well. We will continue to follow up the LFTs and also the biliary drainage output. Kavon Duncan MD cc: [id number] TT: 07/30/2016 02:35:24 Confirmation # [id number] Dictation # [id number] maribell SALGADO
[2016-07-30] MEDS: Albuterol-Ipratrop 3 mg / 0.5 (3 ml) UD IH SCH ×6 (04:55→23:30)
[2016-07-30] MEDS: Piperacillin/Tazobact 3.375 gm 100 ML IVPB SCH ×5 (06:08→23:45)
[2016-07-30] MEDS: Levothyroxine 75 MCG TAB PO SCH (06:17)
[2016-07-30 06:41] LABS: ADD MANUAL DIFF? NO
[2016-07-30 07:15] LABS: CALCIUM 9.6 mg/dL (8.4-10.5); POTASSIUM 3.7 mmol/L (3.6-5.0)
[2016-07-30] MEDS: Acetylcysteine 20% Inhal Soln (4ml) IH SCH ×2 (07:47→22:10)
[2016-07-30] MEDS: Pantoprazole 40 mg EC Tab PO SCH (08:11)
[2016-07-30] MEDS: Insulin Reg-LOW-Coverage SC SCH ×4 (08:11→22:00)
[2016-07-30 08:38] LABS: BASO # 0.02 K/mm3 (0.0-2.0); BASO % 0.1 % (0.0-3.0); EOS # 1.3 (0.0-0.7); EOS % 9.4 % (1.5-5.0); GRAN # 10.23 (1.4-6.5); HEMATOCRIT 25.2 % (36.0-48.0); LYMPH # 0.9 (1.2-3.4); LYMPH % 6.5 % (22.0-35.0); MEAN CELL VOLUME 97.3 fL (80.0-105.0); MEAN CORPUSCULAR HEMOGLOBIN 30.9 pg (25.0-35.0); MEAN CORPUSCULAR HGB CONC 31.7 g/dl (31.0-37.0); MONO # 1.2 (0.1-0.6); PLATELET COUNT 322 10^3/uL (120.0-450.0); WHITE BLOOD COUNT 13.7 10^3/ul (4.5-11.0)
--- NOTE | 2016-07-30 09:10 | CP.PCM.PN ---
Subjective - Date & Time of Evaluation Date of Evaluation: 07/30/16 Time of Evaluation: 09:06 - Subjective Subjective: General surgery consult note for Luis Diaz PGY1 Patient seen and examined at bedside this morning. No acute overnight events or new complaints. Denies chest pain, palpitations, SOB. Objective - Vital Signs/Intake and Output Vital Signs (last 24 hours): Temp Pulse Resp BP Pulse Ox 98.8 F 105 H 16 153/56 H 98 07/29/16 17:55 07/29/16 17:55 07/29/16 17:55 07/29/16 17:55 07/29/16 17:55 Intake and Output: 07/30/16 07/30/16 06:59 18:59 Intake Total 1500 0 Output Total 200 400 Balance 1300 -400 - Medications Medications: Current Medications Acetaminophen (Tylenol 325mg Tab) 650 mg PO Q4H PRN PRN Reason: Fever >100.4 F Last Admin: 07/30/16 03:14 Dose: 650 mg Acetylcysteine (Acetylcysteine 20%) 3 ml IH BID [facility] Last Admin: 07/30/16 07:47 Dose: 3 ml Albuterol/Ipratropium (Duoneb 3 Mg/0.5 Mg (3 Ml) Ud) 3 ml IH [id number] [facility] Last Admin: 07/30/16 07:47 Dose: 3 ml Aspirin (Ecotrin) 81 mg PO DAILY [facility] Last Admin: 07/29/16 10:15 Dose: Not Given Atorvastatin Calcium (Lipitor) 20 mg PO DAILY [facility] Last Admin: 07/29/16 18:56 Dose: Not Given Cholecalciferol (Vitamin D) 2,000 iu PO DAILY [facility] Last Admin: 07/29/16 10:19 Dose: Not Given Cyanocobalamin (Vitamin B12 1000 Mcg Tab) 1,000 mcg PO BID [facility] Last Admin: 07/29/16 18:55 Dose: 1,000 mcg Docusate Sodium (Colace) 100 mg PO BID [facility] Last Admin: 07/29/16 18:55 Dose: 100 mg Ferrous Sulfate (Feosol) 324 mg PO BID [facility] Last Admin: 07/29/16 18:55 Dose: 324 mg Furosemide (Lasix) 40 mg IVP DAILY [facility] Last Admin: 07/29/16 18:56 Dose: Not Given Guaifenesin (Robitussin) 100 mg PO Q4H PRN PRN Reason: Cough Last Admin: 07/28/16 06:18 Dose: 100 mg Heparin Sodium (Porcine) (Heparin) 5,000 units SC Q12 [facility] PRN Reason: Protocol Last Admin: 07/29/16 22:43 Dose: 5,000 units Sodium Chloride (Sodium Chloride 0.9%) 1,000 mls @ 75 mls/hr IV .[id number] [facility] Last Admin: 07/29/16 18:57 Dose: 75 mls/hr Piperacillin Sod/Tazobactam Sod (Zosyn 3.375 In Ns 100ml) 100 mls @ 200 mls/hr IVPB Q6 [facility] PRN Reason: Protocol Stop: 08/11/16 18:01 Last Admin: 07/30/16 06:08 Dose: 200 mls/hr Ceftriaxone Sodium (Rocephin 1 Gram Ivpb) 1 gm in 100 mls @ 100 mls/hr IVPB DAILY [facility] PRN Reason: Protocol Stop: 08/11/16 14:46 Last Admin: 07/29/16 10:18 Dose: 100 mls/hr Insulin Human Regular (Humulin R Low) 0 units SC ACHS [facility] PRN Reason: Protocol Last Admin: 07/30/16 08:11 Dose: Not Given Levothyroxine Sodium (Synthroid) 75 mcg PO 0630 [facility] Last Admin: 07/30/16 06:17 Dose: 75 mcg Nystatin (Nystop Topical Powder) 0 gm TOP BID [facility] Last Admin: 07/29/16 18:56 Dose: 1 applic Ondansetron HCl (Zofran Inj) 4 mg IVP Q6H PRN PRN Reason: Nausea/Vomiting Pantoprazole Sodium (Protonix Ec Tab) 40 mg PO ACB [facility] Last Admin: 07/30/16 08:11 Dose: 40 mg Silver Sulfadiazine (Silvadene 1% 20 Gm) 1 ea TOP BID [facility] Last Admin: 07/29/16 18:56 Dose: 1 applic - Labs Labs: 07/30/16 06:30 07/30/16 06:30 PT 10.3 Seconds (9.9-11.8) 07/24/16 23:00 INR 0.95 (0.93-1.08) 07/24/16 23:00 APTT 29.6 Seconds (23.7-30.8) 07/24/16 23:00 - Constitutional Appears: Non-toxic, No Acute Distress - Head Exam Head Exam: ATRAUMATIC, NORMAL INSPECTION, NORMOCEPHALIC - Eye Exam Eye Exam: EOMI, PERRL - Neck Exam Neck Exam: Normal Inspection - Respiratory Exam Respiratory Exam: Decreased Breath Sounds. absent: Accessory Muscle Use, Rales , Rhonchi, Wheezes - Cardiovascular Exam Cardiovascular Exam: RRR, +S1, +S2. absent: Gallop, Rubs - GI/Abdominal Exam GI & Abdominal Exam: Distended, Soft. absent: Firm, Guarding, Rigid, Tenderness - Extremities Exam Additional comments: right upper extremity motor strength 0/5; sensation not intact below shoulder bilateral lower extremities with chronic venous stasis - Neurological Exam Neurological Exam: Alert, Awake, Oriented x3 - Psychiatric Exam Psychiatric exam: Normal Affect, Normal Mood Assessment and Plan - Assessment and Plan (Free Text) Plan: 75yo female with history of brachial plexus injury, necrotic GB presents with bile leak s/p open cholecystectomy s/p drain placement for GB fossa abscess -Patient is s/p ERCP with stent placement -Hamzah drain removed; Jany removed -Recommend JOHN wrap for RUE -Continue medical management as per primary team -Follow up GI recommendations -No planned surgical intervention at this time Case discussed with attending, Dr. Elias
[2016-07-30 09:32] LABS: ALB/GLOB RATIO 0.8 (1.1-1.8); BILIRUBIN,DIRECT 0.3 mg/dL (0.0-0.4); BILIRUBIN,TOTAL 0.3 mg/dL (0.2-1.3); TOTAL PROTEIN 5.7 g/dL (5.8-8.3)
--- NOTE | 2016-07-30 09:35 | CP.PCM.PN ---
<Nicole Merino - Last Filed: 07/30/16 09:36> Subjective - Date & Time of Evaluation Date of Evaluation: 07/30/16 Time of Evaluation: 09:33 - Subjective Subjective: GI for Dr. Duncan Pt s&e w attending. Pt had ERCP with stent yesterday and tolerated it well. Drain output has decreased. Tolerating PO. Objective - Vital Signs/Intake and Output Vital Signs (last 24 hours): Temp Pulse Resp BP Pulse Ox 98.8 F 105 H 16 153/56 H 98 07/29/16 17:55 07/29/16 17:55 07/29/16 17:55 07/29/16 17:55 07/29/16 17:55 Intake and Output: 07/30/16 07/30/16 06:59 18:59 Intake Total 1500 0 Output Total 200 400 Balance 1300 -400 - Medications Medications: Current Medications Acetaminophen (Tylenol 325mg Tab) 650 mg PO Q4H PRN PRN Reason: Fever >100.4 F Last Admin: 07/30/16 03:14 Dose: 650 mg Acetylcysteine (Acetylcysteine 20%) 3 ml IH BID [facility] Last Admin: 07/30/16 07:47 Dose: 3 ml Albuterol/Ipratropium (Duoneb 3 Mg/0.5 Mg (3 Ml) Ud) 3 ml IH [id number] [facility] Last Admin: 07/30/16 07:47 Dose: 3 ml Aspirin (Ecotrin) 81 mg PO DAILY [facility] Last Admin: 07/29/16 10:15 Dose: Not Given Atorvastatin Calcium (Lipitor) 20 mg PO DAILY [facility] Last Admin: 07/29/16 18:56 Dose: Not Given Cholecalciferol (Vitamin D) 2,000 iu PO DAILY [facility] Last Admin: 07/29/16 10:19 Dose: Not Given Cyanocobalamin (Vitamin B12 1000 Mcg Tab) 1,000 mcg PO BID [facility] Last Admin: 07/29/16 18:55 Dose: 1,000 mcg Docusate Sodium (Colace) 100 mg PO BID [facility] Last Admin: 07/29/16 18:55 Dose: 100 mg Ferrous Sulfate (Feosol) 324 mg PO BID [facility] Last Admin: 07/29/16 18:55 Dose: 324 mg Furosemide (Lasix) 40 mg IVP DAILY [facility] Last Admin: 07/29/16 18:56 Dose: Not Given Guaifenesin (Robitussin) 100 mg PO Q4H PRN PRN Reason: Cough Last Admin: 07/28/16 06:18 Dose: 100 mg Heparin Sodium (Porcine) (Heparin) 5,000 units SC Q12 [facility] PRN Reason: Protocol Last Admin: 07/29/16 22:43 Dose: 5,000 units Sodium Chloride (Sodium Chloride 0.9%) 1,000 mls @ 75 mls/hr IV .[id number] [facility] Last Admin: 07/29/16 18:57 Dose: 75 mls/hr Piperacillin Sod/Tazobactam Sod (Zosyn 3.375 In Ns 100ml) 100 mls @ 200 mls/hr IVPB Q6 [facility] PRN Reason: Protocol Stop: 08/11/16 18:01 Last Admin: 07/30/16 06:08 Dose: 200 mls/hr Ceftriaxone Sodium (Rocephin 1 Gram Ivpb) 1 gm in 100 mls @ 100 mls/hr IVPB DAILY [facility] PRN Reason: Protocol Stop: 08/11/16 14:46 Last Admin: 07/29/16 10:18 Dose: 100 mls/hr Insulin Human Regular (Humulin R Low) 0 units SC ACHS [facility] PRN Reason: Protocol Last Admin: 07/30/16 08:11 Dose: Not Given Levothyroxine Sodium (Synthroid) 75 mcg PO 0630 [facility] Last Admin: 07/30/16 06:17 Dose: 75 mcg Nystatin (Nystop Topical Powder) 0 gm TOP BID [facility] Last Admin: 07/29/16 18:56 Dose: 1 applic Ondansetron HCl (Zofran Inj) 4 mg IVP Q6H PRN PRN Reason: Nausea/Vomiting Pantoprazole Sodium (Protonix Ec Tab) 40 mg PO ACB [facility] Last Admin: 07/30/16 08:11 Dose: 40 mg Silver Sulfadiazine (Silvadene 1% 20 Gm) 1 ea TOP BID [facility] Last Admin: 07/29/16 18:56 Dose: 1 applic - Labs Labs: 07/30/16 06:30 07/30/16 06:30 PT 10.3 Seconds (9.9-11.8) 07/24/16 23:00 INR 0.95 (0.93-1.08) 07/24/16 23:00 APTT 29.6 Seconds (23.7-30.8) 07/24/16 23:00 - Constitutional Appears: No Acute Distress - Head Exam Head Exam: ATRAUMATIC, NORMAL INSPECTION, NORMOCEPHALIC - Eye Exam Eye Exam: EOMI, Normal appearance, PERRL Pupil Exam: NORMAL ACCOMODATION, PERRL - ENT Exam ENT Exam: Mucous Membranes Moist, Normal Exam - Neck Exam Neck Exam: Full ROM, Normal Inspection. absent: Lymphadenopathy - Respiratory Exam Respiratory Exam: Clear to Ausculation Bilateral, NORMAL BREATHING PATTERN - Cardiovascular Exam Cardiovascular Exam: REGULAR RHYTHM, +S1, +S2. absent: Murmur - GI/Abdominal Exam GI & Abdominal Exam: Soft, Normal Bowel Sounds. absent: Distended, Tenderness Additional comments: CHRISTIANO in place. Drain in place: minimal bilious output. - Extremities Exam Extremities Exam: Pedal Edema - Neurological Exam Neurological Exam: Alert, Awake, CN II-XII Intact, Oriented x3 - Psychiatric Exam Psychiatric exam: Normal Affect, Normal Mood - Skin Skin Exam: Dry, Intact, Normal Color, Warm Assessment and Plan - Assessment and Plan (Free Text) Assessment: Bile leak and CBD obstruction s/p ERCP w stent Bilious output on the drain decreasing -FLD: Advance diet as tolerated -MOnitor drain output -Surgery following : f/u when to take out drains -Repeat endoscopy in 3 weeks to remove the stent after DC -Medical management DW Dr. Duncan <Kavon Duncan V - Last Filed: 09/18/16 17:46> Objective - Vital Signs/Intake and Output Vital Signs (last 24 hours): Temp Pulse Resp BP Pulse Ox 99.3 F 113 H 22 140/70 95 07/31/16 07:56 07/31/16 07:56 07/31/16 07:56 07/31/16 10:34 07/31/16 07:56 - Labs Labs: 07/31/16 06:00 07/31/16 06:00 PT 10.3 Seconds (9.9-11.8) 07/24/16 23:00 INR 0.95 (0.93-1.08) 07/24/16 23:00 APTT 29.6 Seconds (23.7-30.8) 07/24/16 23:00 - GI/Abdominal Exam GI & Abdominal Exam: Soft Additional comments: nontender, CHRISTIANO in place. Drain in place: minimal bilious output. Assessment and Plan - Assessment and Plan (Free Text) Assessment: Addendum note to GI progress note of Dr. Merino. Seen and discussed, chart reviewed. Agree with the plan as set out above. Repeat endoscopy in 3 weeks to remove the stent after discharge
[2016-07-30] MEDS: cefTRIAXone 1 gm 1 GM/100 ML BAG IVPB SCH (09:47)
[2016-07-30] MEDS: Silver Sulfadiazine 1% Cream (20 gm) TOP SCH ×2 (09:48→17:13)
[2016-07-30] MEDS: Nystatin 100,000 Units/gm Topical Pow(15 gm) TOP SCH ×2 (09:49→17:13)
[2016-07-30] MEDS: guaiFENesin 100 mg/5 ml Syrup UD PO PRN (10:08)
--- NOTE | 2016-07-30 14:43 | CP.PCM.DIS ---
<Radha Boyd - Last Filed: 08/04/16 14:05> Provider - Provider Date of Admission: 07/25/16 00:35 Attending physician: Mark Porter MD Primary care physician: Mark Porter MD Consults: cardilogy GI Surgery ID Time Spent in preparation of Discharge (in minutes): 70 Diagnosis - Discharge Diagnosis (1) Bacteremia Status: Acute (2) Sepsis Status: Acute (3) Anemia Status: Acute (4) Bilateral lower leg cellulitis Status: Chronic (5) CKD (chronic kidney disease) stage 3, GFR 30-59 ml/min Status: Chronic (6) HTN (hypertension) Status: Chronic (7) Decubitus ulcer, stage 3 Status: Acute (8) UTI (urinary tract infection) Status: Acute (9) Anemia Status: Acute Hospital Course - Lab Results Lab Results: Micro Results 07/27/16 11:30 Catheter Tip Catheter Tip Culture - Final No growth. 07/27/16 20:10 Blood-Venous Blood Culture - Preliminary NO GROWTH AFTER 48 HOURS 07/27/16 19:40 Blood-Venous Blood Culture - Preliminary NO GROWTH AFTER 48 HOURS Most Recent Lab Values WBC 13.7 10^3/ul (4.5-11.0) H D 07/30/16 06:30 RBC 2.59 10^6/uL (3.5-6.1) L 07/30/16 06:30 Hgb 8.0 gm/dL (12.0-16.0) L 07/30/16 06:30 Hct 25.2 % (36.0-48.0) L 07/30/16 06:30 MCV 97.3 fL (80.0-105.0) 07/30/16 06:30 MCH 30.9 pg (25.0-35.0) 07/30/16 06:30 MCHC 31.7 g/dl (31.0-37.0) 07/30/16 06:30 RDW 15.0 % (11.5-14.5) H 07/30/16 06:30 Plt Count 322 10^3/uL (120.0-450.0) 07/30/16 06:30 MPV 10.0 fl (7.0-11.0) 07/30/16 06:30 Gran % 75.0 % (50.0-68.0) H 07/30/16 06:30 Lymph % (Auto) 6.5 % (22.0-35.0) L 07/30/16 06:30 Wolfe % (Auto) 9.0 % (1.0-6.0) H 07/30/16 06:30 Eos % (Auto) 9.4 % (1.5-5.0) H 07/30/16 06:30 Baso % (Auto) 0.1 % (0.0-3.0) 07/30/16 06:30 Gran # 10.23 (1.4-6.5) H 07/30/16 06:30 Lymph # 0.9 (1.2-3.4) L 07/30/16 06:30 Wolfe # 1.2 (0.1-0.6) H 07/30/16 06:30 Eos # 1.3 (0.0-0.7) H 07/30/16 06:30 Baso # 0.02 K/mm3 (0.0-2.0) 07/30/16 06:30 PT 10.3 Seconds (9.9-11.8) 07/24/16 23:00 INR 0.95 (0.93-1.08) 07/24/16 23:00 APTT 29.6 Seconds (23.7-30.8) 07/24/16 23:00 pO2 92 mm/Hg (30-55) H 07/26/16 09:00 VBG pH 7.52 (7.32-7.43) H 07/26/16 09:00 VBG pCO2 39.0 (40-60) L 07/26/16 09:00 VBG HCO3 31.8 mmol/l (21-28) H 07/26/16 09:00 VBG Total CO2 33.0 mmol.L (22-28) H 07/26/16 09:00 VBG O2 Sat (Calc) 98.1 % (40-65) H 07/26/16 09:00 VBG Base Excess 8.3 mmol/L (0.0-2.0) H 07/26/16 09:00 VBG Potassium 4.6 mmol/L (3.6-5.2) 07/26/16 09:00 Sodium 138.0 mmol/L (132-148) 07/26/16 09:00 Chloride 106.0 mmol/L (98-107) 07/26/16 09:00 Glucose 78 mg/dl (65-105) 07/26/16 09:00 Lactate 0.9 mmol/L (0.7-2.1) 07/26/16 09:00 FiO2 21.0 % 07/26/16 09:00 Sodium 135 mmol/L (132-148) 07/30/16 06:30 Potassium 3.7 mmol/L (3.6-5.0) 07/30/16 06:30 Chloride 99 mmol/L (98-107) 07/30/16 06:30 Carbon Dioxide 32 mmol/L (21-33) 07/30/16 06:30 Anion Gap 8 (10-20) L 07/30/16 06:30 BUN 32 mg/dL (7-21) H 07/30/16 06:30 Creatinine 1.4 mg/dL (0.5-1.4) 07/30/16 06:30 Est GFR ( Amer) 44 07/30/16 06:30 Est GFR (Non-Af Amer) 36 07/30/16 06:30 POC Glucose (mg/dL) 126 mg/dL (65-110) H 07/29/16 11:53 Random Glucose 115 mg/dL (70-110) H 07/30/16 06:30 Calcium 9.6 mg/dL (8.4-10.5) 07/30/16 06:30 Total Bilirubin 0.3 mg/dL (0.2-1.3) 07/30/16 06:30 Direct Bilirubin 0.3 mg/dL (0.0-0.4) 07/30/16 06:30 AST 37 U/L (15-39) 07/30/16 06:30 ALT 30 U/L (7-56) 07/30/16 06:30 Alkaline Phosphatase 85 U/L (38-133) 07/30/16 06:30 Lactate Dehydrogenase 565 U/L (333-699) 07/24/16 15:25 Total Creatine Kinase 72 U/L (35-230) 07/27/16 11:20 Troponin I < 0.01 ng/mL D 07/24/16 15:25 NT-Pro-B Natriuret Pep 395 pg/mL (0-450) 07/25/16 02:57 Total Protein 5.7 g/dL (5.8-8.3) L 07/30/16 06:30 Albumin 2.6 g/dL (3.0-4.8) L 07/30/16 06:30 Globulin 3.1 gm/dL 07/30/16 06:30 Albumin/Globulin Ratio 0.8 (1.1-1.8) L 07/30/16 06:30 Amylase 60 U/L (35-125) 07/24/16 15:25 Lipase 66 U/L (23-300) 07/24/16 15:25 Venous Blood Potassium 4.6 mmol/L (3.6-5.2) 07/26/16 09:00 Urine Color Light yellow (YELLOW) 07/25/16 01:55 Urine Appearance Sl cloudy (CLEAR) 07/25/16 01:55 Urine pH >=9.0 (4.7-8.0) 07/25/16 01:55 Ur Specific Boyce 1.010 (1.005-1.035) 07/25/16 01:55 Urine Protein Trace mg/dL (<30 mg/dL) H 07/25/16 01:55 Urine Glucose (UA) Negative mg/dL (NEGATIVE) 07/25/16 01:55 Urine Ketones Negative mg/dL (NEGATIVE) 07/25/16 01:55 Urine Blood Trace-lysed (NEGATIVE) H 07/25/16 01:55 Urine Nitrate Positive (NEGATIVE) H 07/25/16 01:55 Urine Bilirubin Negative (NEGATIVE) 07/25/16 01:55 Urine Urobilinogen 0.2 E.U./dL (<1 E.U./dL) 07/25/16 01:55 Ur Leukocyte Esterase Trace Kareen/uL (NEGATIVE) H 07/25/16 01:55 Urine RBC 1 - 3 /hpf (0-2) 07/25/16 01:55 Urine WBC 1 - 3 /hpf (0-6) 07/25/16 01:55 Ur Epithelial Cells 0 - 2 /hpf (0-5) 07/25/16 01:55 Urine Bacteria Many (NEG) 07/25/16 01:55 Crossmatch See Detail 07/30/16 14:00 BBK History Checked Patient has bt 07/30/16 14:00 - Hospital Course Hospital Course: Patient is a 75 y/o F with PMH of HTN, CHF, DM, morbidly obese with BMI 47, hypothyroidism, s/p hysterectomy with cholecystectomy tube, s/p bilateral knee replacements, dyslipidemia, history of TIA, history of chronic lower extremity cellulites, degenerative arthritis, chronic indwelling Briones catheter, bed bound and custodial resident admitted with sepsis from multiple sources. Patient has Proteus miralbilis UTI likely secondary to chronic indwelling Briones catheter ( Briones catheter was changed). Patient had stage 3 decubitus ulcers surgery was consulted and wound care was addressed. Patient also had klebsiella, proteus miralbilis and enterococcus bacteremia suspected to be 2nd to picc line infection, picc line was removed. ID was following patient and patient was on broadspecturm antibiotic, which was changed to culture sensitive Rocephin and ceftriaxone. Furthermore, patient's cholecystectomy tube was draining bile fluid, biliary duct was suspected to be leaking. Surgery recommended evaluation by GI. Patient had ERCP and the biliary duct was stented. Patient's hgb continued to drop throughout the admission, was given 1 unit of prbc. Patient was discharged to [facility]. Patient will continue 10 more days of antibiotics through her new picc line. Patient need to return to [facility] in 3 weeks for stent removal. Patient will also need repeat CT to make sure there's no bile fluid collected in the abdomen. - Date & Time of H&P Date of H&P: 07/25/16 Time of H&P: 02:18 Discharge Exam - Head Exam Head Exam: ATRAUMATIC, NORMAL INSPECTION, NORMOCEPHALIC - Eye Exam Eye Exam: EOMI, Normal appearance, PERRL. absent: Scleral icterus - ENT Exam ENT Exam: Mucous Membranes Moist - Neck Exam Neck exam: Normal Inspection - Respiratory Exam Respiratory Exam: Clear to PA & Lateral, NORMAL BREATHING PATTERN, UNREMARKABLE. absent: Rales, Rhonchi, Wheezes, Respiratory Distress, Stridor - Cardiovascular Exam Cardiovascular Exam: REGULAR RHYTHM, RRR, +S1, +S2. absent: Systolic Murmur - GI/Abdominal Exam GI & Abdominal Exam: Normal Bowel Sounds, Soft, Unremarkable. absent: Distended , Firm, Guarding, Rigid, Tenderness Additional comments: obese abdomen. - Extremities Exam Extremities exam: pedal edema - Back Exam Back exam: NORMAL INSPECTION - Neurological Exam Neurological exam: Alert, Oriented x3 - Psychiatric Exam Psychiatric exam: Normal Affect, Normal Mood - Skin Skin Exam: Dry, Normal Color Additional comments: chronic b/l le cellulites stage 3 decub on the back. Discharge Plan - Discharge Medications Prescriptions: cefTRIAXone 1 gm [Rocephin 1 gram IVPB] 1 gm IVPB DAILY 10 Days Piperacillin/Tazobact 3.375 gm [Zosyn 3.375 in NS 100ml] 3.375 gm IVPB Q6 10 Days Silver Sulfadiazine 1% 20 gm [Silvadene 1% 20 gm] 1 ea TOP BID #3 - Follow Up Plan Condition: GOOD Disposition: TRANSF TO SNF Instructions: Urinary Tract Infection in Women (DC), Bacteremia (DC) Additional Instructions: - Patient will need repeat CT in few days to follow up on the abdominal biliary leakage - Patient will need to come back to [facility] for biliary stent removal in 3 weeks - Patient will need to continue IV antibiotics ( Zosyn and Rocephin) for 11 more days. - Patient will need to be turned q2 hrs, and her stage 3 decubitus ulcer need to be taking care of as instructed by surgery: silvadene with optifoam dressing daily. Referrals: Mark Porter MD [Primary Care Provider] - <Roosevelt Beltran - Last Filed: 08/22/16 18:44> Provider - Provider Date of Admission: 07/25/16 00:35 Attending physician: Mark Porter MD Primary care physician: Mark Porter MD Hospital Course - Lab Results Lab Results: Micro Results 07/27/16 20:10 Blood-Venous Blood Culture - Final NO GROWTH AFTER 5 DAYS 07/27/16 20:10 Blood-Venous Gram Stain - Final 07/27/16 19:40 Blood-Venous Blood Culture - Final NO GROWTH AFTER 5 DAYS 07/27/16 19:40 Blood-Venous Gram Stain - Final 07/27/16 11:30 Catheter Tip Catheter Tip Culture - Final No growth. Most Recent Lab Values WBC 16.6 10^3/ul (4.5-11.0) H D 07/31/16 06:00 RBC 2.94 10^6/uL (3.5-6.1) L 07/31/16 06:00 Hgb 8.9 gm/dL (12.0-16.0) L 07/31/16 06:00 Hct 27.6 % (36.0-48.0) L 07/31/16 06:00 MCV 93.9 fL (80.0-105.0) 07/31/16 06:00 MCH 30.3 pg (25.0-35.0) 07/31/16 06:00 MCHC 32.2 g/dl (31.0-37.0) 07/31/16 06:00 RDW 15.9 % (11.5-14.5) H 07/31/16 06:00 Plt Count 303 10^3/uL (120.0-450.0) 07/31/16 06:00 MPV 9.5 fl (7.0-11.0) 07/31/16 06:00 Gran % 77.8 % (50.0-68.0) H 07/31/16 06:00 Lymph % (Auto) 6.4 % (22.0-35.0) L 07/31/16 06:00 Wolfe % (Auto) 6.4 % (1.0-6.0) H 07/31/16 06:00 Eos % (Auto) 9.3 % (1.5-5.0) H 07/31/16 06:00 Baso % (Auto) 0.1 % (0.0-3.0) 07/31/16 06:00 Gran # 12.91 (1.4-6.5) H 07/31/16 06:00 Lymph # 1.1 (1.2-3.4) L 07/31/16 06:00 Wolfe # 1.1 (0.1-0.6) H 07/31/16 06:00 Eos # 1.5 (0.0-0.7) H 07/31/16 06:00 Baso # 0.02 K/mm3 (0.0-2.0) 07/31/16 06:00 PT 10.3 Seconds (9.9-11.8) 07/24/16 23:00 INR 0.95 (0.93-1.08) 07/24/16 23:00 APTT 29.6 Seconds (23.7-30.8) 07/24/16 23:00 pO2 92 mm/Hg (30-55) H 07/26/16 09:00 VBG pH 7.52 (7.32-7.43) H 07/26/16 09:00 VBG pCO2 39.0 (40-60) L 07/26/16 09:00 VBG HCO3 31.8 mmol/l (21-28) H 07/26/16 09:00 VBG Total CO2 33.0 mmol.L (22-28) H 07/26/16 09:00 VBG O2 Sat (Calc) 98.1 % (40-65) H 07/26/16 09:00 VBG Base Excess 8.3 mmol/L (0.0-2.0) H 07/26/16 09:00 VBG Potassium 4.6 mmol/L (3.6-5.2) 07/26/16 09:00 Sodium 138.0 mmol/L (132-148) 07/26/16 09:00 Chloride 106.0 mmol/L (98-107) 07/26/16 09:00 Glucose 78 mg/dl (65-105) 07/26/16 09:00 Lactate 0.9 mmol/L (0.7-2.1) 07/26/16 09:00 FiO2 21.0 % 07/26/16 09:00 Sodium 135 mmol/L (132-148) 07/31/16 06:00 Potassium 3.8 mmol/L (3.6-5.0) 07/31/16 06:00 Chloride 99 mmol/L (95-110) 07/31/16 06:00 Carbon Dioxide 31 mmol/L (21-33) 07/31/16 06:00 Anion Gap 9 (10-20) L 07/31/16 06:00 BUN 29 mg/dL (7-21) H 07/31/16 06:00 Creatinine 1.3 mg/dL (0.5-1.4) 07/31/16 06:00 Est GFR ( Amer) 48 07/31/16 06:00 Est GFR (Non-Af Amer) 40 07/31/16 06:00 POC Glucose (mg/dL) 134 mg/dL (65-110) H 07/31/16 11:45 Random Glucose 98 mg/dL (70-110) 07/31/16 06:00 Calcium 9.3 mg/dL (8.4-10.5) 07/31/16 06:00 Total Bilirubin 0.3 mg/dL (0.2-1.3) 07/30/16 06:30 Direct Bilirubin 0.3 mg/dL (0.0-0.4) 07/30/16 06:30 AST 37 U/L (15-39) 07/30/16 06:30 ALT 30 U/L (7-56) 07/30/16 06:30 Alkaline Phosphatase 85 U/L (38-133) 07/30/16 06:30 Lactate Dehydrogenase 565 U/L (333-699) 07/24/16 15:25 Total Creatine Kinase 72 U/L (35-230) 07/27/16 11:20 Troponin I < 0.01 ng/mL D 07/24/16 15:25 NT-Pro-B Natriuret Pep 395 pg/mL (0-450) 07/25/16 02:57 Total Protein 5.7 g/dL (5.8-8.3) L 07/30/16 06:30 Albumin 2.6 g/dL (3.0-4.8) L 07/30/16 06:30 Globulin 3.1 gm/dL 07/30/16 06:30 Albumin/Globulin Ratio 0.8 (1.1-1.8) L 07/30/16 06:30 Amylase 60 U/L (35-125) 07/24/16 15:25 Lipase 66 U/L (23-300) 07/24/16 15:25 Venous Blood Potassium 4.6 mmol/L (3.6-5.2) 07/26/16 09:00 Urine Color Light yellow (YELLOW) 07/25/16 01:55 Urine Appearance Sl cloudy (CLEAR) 07/25/16 01:55 Urine pH >=9.0 (4.7-8.0) 07/25/16 01:55 Ur Specific Boyce 1.010 (1.005-1.035) 07/25/16 01:55 Urine Protein Trace mg/dL (<30 mg/dL) H 07/25/16 01:55 Urine Glucose (UA) Negative mg/dL (NEGATIVE) 07/25/16 01:55 Urine Ketones Negative mg/dL (NEGATIVE) 07/25/16 01:55 Urine Blood Trace-lysed (NEGATIVE) H 07/25/16 01:55 Urine Nitrate Positive (NEGATIVE) H 07/25/16 01:55 Urine Bilirubin Negative (NEGATIVE) 07/25/16 01:55 Urine Urobilinogen 0.2 E.U./dL (<1 E.U./dL) 07/25/16 01:55 Ur Leukocyte Esterase Trace Kareen/uL (NEGATIVE) H 07/25/16 01:55 Urine RBC 1 - 3 /hpf (0-2) 07/25/16 01:55 Urine WBC 1 - 3 /hpf (0-6) 07/25/16 01:55 Ur Epithelial Cells 0 - 2 /hpf (0-5) 07/25/16 01:55 Urine Bacteria Many (NEG) 07/25/16 01:55 Stool Occult Blood Negative (NEGATIVE) 07/31/16 18:05 Blood Type O POSITIVE 07/30/16 14:00 Antibody Screen Negative 07/30/16 14:00 Crossmatch See Detail 07/30/16 14:00 BBK History Checked Patient has bt 07/30/16 14:00 Attending/Attestation - Attestation I have personally seen and examined this patient.: Yes I have fully participated in the care of the patient.: Yes I have reviewed all pertinent clinical information, including history, physical exam and plan: Yes Notes (Text): 08/22/16 18:44 Medical record note made by the resident after discussion with my direction and input after the patient was personally seen and examined by me. I have reviewed the chart and agree that the record accurately reflects by personal performance of the history, physical exam, data review, and medical decision-making, in the course for the patient. I have also personally directed the plan of care.
--- NOTE | 2016-07-30 17:37 | CP.PCM.PN ---
Subjective - Date & Time of Evaluation Date of Evaluation: 07/30/16 Time of Evaluation: 07:30 - Subjective Subjective: Medicine progress note for Dr Beltran and Dr Porter. Patient is s/p ERCP day 1, with biliary stent placement. No output from the cholecystectomy bag overnight. CHRISTIANO in place with no drainage. Patient remains afebrile. Patient denies cp, sob, headache or dizziness. Admits to fatigue and feeling weak. Admits to non productive cough. Objective - Vital Signs/Intake and Output Vital Signs (last 24 hours): Temp Pulse Resp BP Pulse Ox 98.4 F 87 18 103/60 95 07/30/16 06:00 07/30/16 06:00 07/30/16 06:00 07/30/16 09:46 07/30/16 06:00 Intake and Output: 07/30/16 07/30/16 06:59 18:59 Intake Total 1500 480 Output Total 200 1000 Balance 1300 -520 - Medications Medications: Current Medications Acetaminophen (Tylenol 325mg Tab) 650 mg PO Q4H PRN PRN Reason: Fever >100.4 F Last Admin: 07/30/16 03:14 Dose: 650 mg Acetylcysteine (Acetylcysteine 20%) 3 ml IH BID [facility] Last Admin: 07/30/16 07:47 Dose: 3 ml Albuterol/Ipratropium (Duoneb 3 Mg/0.5 Mg (3 Ml) Ud) 3 ml IH [id number] [facility] Last Admin: 07/30/16 15:41 Dose: Not Given Aspirin (Ecotrin) 81 mg PO DAILY [facility] Last Admin: 07/30/16 09:46 Dose: 81 mg Atorvastatin Calcium (Lipitor) 20 mg PO DAILY [facility] Last Admin: 07/30/16 09:47 Dose: 20 mg Cholecalciferol (Vitamin D) 2,000 iu PO DAILY [facility] Last Admin: 07/30/16 09:47 Dose: 2,000 iu Cyanocobalamin (Vitamin B12 1000 Mcg Tab) 1,000 mcg PO BID [facility] Last Admin: 07/30/16 17:12 Dose: 1,000 mcg Docusate Sodium (Colace) 100 mg PO BID [facility] Last Admin: 07/30/16 17:12 Dose: 100 mg Ferrous Sulfate (Feosol) 324 mg PO BID [facility] Last Admin: 07/30/16 17:12 Dose: 324 mg Furosemide (Lasix) 40 mg IVP DAILY [facility] Last Admin: 07/30/16 09:46 Dose: 40 mg Guaifenesin (Robitussin) 100 mg PO Q4H PRN PRN Reason: Cough Last Admin: 07/30/16 10:08 Dose: 100 mg Heparin Sodium (Porcine) (Heparin) 5,000 units SC Q12 [facility] PRN Reason: Protocol Last Admin: 07/30/16 09:47 Dose: 5,000 units Sodium Chloride (Sodium Chloride 0.9%) 1,000 mls @ 75 mls/hr IV .[id number] [facility] Last Admin: 07/29/16 18:57 Dose: 75 mls/hr Piperacillin Sod/Tazobactam Sod (Zosyn 3.375 In Ns 100ml) 100 mls @ 200 mls/hr IVPB Q6 [facility] PRN Reason: Protocol Stop: 08/11/16 18:01 Last Admin: 07/30/16 17:10 Dose: 200 mls/hr Ceftriaxone Sodium (Rocephin 1 Gram Ivpb) 1 gm in 100 mls @ 100 mls/hr IVPB DAILY [facility] PRN Reason: Protocol Stop: 08/11/16 14:46 Last Admin: 07/30/16 09:47 Dose: 100 mls/hr Insulin Human Regular (Humulin R Low) 0 units SC ACHS [facility] PRN Reason: Protocol Last Admin: 07/30/16 16:45 Dose: Not Given Levothyroxine Sodium (Synthroid) 75 mcg PO 0630 [facility] Last Admin: 07/30/16 06:17 Dose: 75 mcg Nystatin (Nystop Topical Powder) 0 gm TOP BID [facility] Last Admin: 07/30/16 17:13 Dose: 1 applic Ondansetron HCl (Zofran Inj) 4 mg IVP Q6H PRN PRN Reason: Nausea/Vomiting Pantoprazole Sodium (Protonix Ec Tab) 40 mg PO ACB [facility] Last Admin: 07/30/16 08:11 Dose: 40 mg Silver Sulfadiazine (Silvadene 1% 20 Gm) 1 ea TOP BID [facility] Last Admin: 07/30/16 17:13 Dose: 1 applic - Labs Labs: 07/30/16 06:30 07/30/16 06:30 PT 10.3 Seconds (9.9-11.8) 07/24/16 23:00 INR 0.95 (0.93-1.08) 07/24/16 23:00 APTT 29.6 Seconds (23.7-30.8) 07/24/16 23:00 - Constitutional Appears: No Acute Distress, Chronically Ill - Head Exam Head Exam: ATRAUMATIC, NORMAL INSPECTION, NORMOCEPHALIC - Eye Exam Eye Exam: EOMI, Normal appearance, PERRL. absent: Scleral icterus - ENT Exam ENT Exam: Mucous Membranes Moist - Neck Exam Neck Exam: Normal Inspection - Respiratory Exam Respiratory Exam: Clear to Ausculation Bilateral, NORMAL BREATHING PATTERN. absent: Rales, Rhonchi, Wheezes, Respiratory Distress, Stridor - Cardiovascular Exam Cardiovascular Exam: REGULAR RHYTHM, +S1, +S2. absent: Murmur - GI/Abdominal Exam GI & Abdominal Exam: Soft, Normal Bowel Sounds. absent: Distended, Firm, Guarding, Rigid, Tenderness - Extremities Exam Extremities Exam: Pedal Edema - Neurological Exam Neurological Exam: Alert, Awake, Oriented x3 - Psychiatric Exam Psychiatric exam: Normal Affect, Normal Mood - Skin Skin Exam: Dry, Warm Additional comments: stage 3 decubitus ulcers, b/l upper and lower extremities with chronic skin changes with erythema. Assessment and Plan - Assessment and Plan (Free Text) Assessment: Patient is a 75 y/o F with PMH of HTN, CHF, DM, morbidly obese with BMI 47, hypothyroidism, s/p hysterectomy with cholecystectomy tube, s/p bilateral knee replacements, dyslipidemia, history of TIA, history of chronic lower extremity cellulites, degenerative arthritis, chronic indwelling Briones catheter, bed bound and halfway resident admitted with sepsis from multiple sources. Patient has a new picc line placed, pending halfway bed for transfer. Plan: 1) Symtomatic acute on chronic anemia of chronic disease - H/H continue to trend down daily - will transfuse 1 unit of prbc - will ontinue to monitor 2) Disposition- pending halfway bed availability. 3) Sepsis secondary to multiple sources- UTI with chronic indwelling Briones catheter, stage 3 decubitus ulcers, patient had picc line ( now removed), cholecystectomy tubes, from halfway. - Sepsis resolving - Urine cx grew Proteus, bcx growing Proteus and klebsiella and enterococcus. - Repeat bcx after few days of antibiotics with no growth. - on rocephin and zosyn, which patient will continue on while at halfway for 14 days total from negative repeat bcx, as per ID. 4) Stage 3 decubitus ulcer - wound care as per surgery 5) COPD - continue duoneb and mucomyst - continue robitussin for cough 6) Chronic constipation - continue colace 7) CAD- continue asa and Lipitor - echo with normal LVEF. Please see emr for full reports. 8) Hypothyroidism- continue synthroid 9) Cholecystectomy with biliary leak - s/p ercp, with cystic duct stent placement - so far no output form cholecystectomy bag - patient will need to return to [facility] in 3 weeks for stent removal, and will need repeat CT as per Gi ( Dr Duncan). 10) DM - Carb controlled diet - ISS - Accuchecks ACHS. 10) DVT and gi prophylaxis: heparin sc and protonix Patient seen, examined, case discussed with Dr Beltran.
--- NOTE | 2016-07-30 17:43 | RAD ---
PROCEDURE: ERCP HISTORY: ? CBD OBST COMPARISON: None TECHNIQUE: Standard FINDINGS: Total fluoroscopic time (continuous mode) utilized during the procedure: 2 minutes 23 seconds. IMPRESSION: Submitted images from the current procedure: 10.0.
--- NOTE | 2016-07-30 18:38 | PN ---
DATE: 07/30/2016 The patient was seen yesterday and today. The drainage today is markedly less than it was. One drai n will be removed that is partially out, leaving Dr. Cui's drain. The stent is in place, numbers a re normal. I will follow peripherally, but without surgical intention. Miguel Ángel Elias MD cc: [phone] TT: 07/30/2016 18:37:38 Confirmation # [id number] Dictation # [id number] rn
--- NOTE | 2016-07-30 20:25 | CP.PCM.PN ---
Subjective - Date & Time of Evaluation Date of Evaluation: 07/30/16 Time of Evaluation: 12:20 - Subjective Subjective: Comfortable, afebrile, not in distress. Objective - Vital Signs/Intake and Output Vital Signs (last 24 hours): Temp Pulse Resp BP Pulse Ox 98.2 F 97 H 18 115/50 L 96 07/30/16 18:42 07/30/16 18:42 07/30/16 18:42 07/30/16 18:42 07/30/16 16:00 Intake and Output: 07/30/16 07/31/16 18:59 06:59 Intake Total 480 Output Total 1000 Balance -520 - Medications Medications: Current Medications Acetaminophen (Tylenol 325mg Tab) 650 mg PO Q4H PRN PRN Reason: Fever >100.4 F Last Admin: 07/30/16 03:14 Dose: 650 mg Acetylcysteine (Acetylcysteine 20%) 3 ml IH BID [facility] Last Admin: 07/30/16 07:47 Dose: 3 ml Albuterol/Ipratropium (Duoneb 3 Mg/0.5 Mg (3 Ml) Ud) 3 ml IH [id number] [facility] Last Admin: 07/30/16 15:41 Dose: Not Given Aspirin (Ecotrin) 81 mg PO DAILY [facility] Last Admin: 07/30/16 09:46 Dose: 81 mg Atorvastatin Calcium (Lipitor) 20 mg PO DAILY [facility] Last Admin: 07/30/16 09:47 Dose: 20 mg Cholecalciferol (Vitamin D) 2,000 iu PO DAILY [facility] Last Admin: 07/30/16 09:47 Dose: 2,000 iu Cyanocobalamin (Vitamin B12 1000 Mcg Tab) 1,000 mcg PO BID [facility] Last Admin: 07/30/16 17:12 Dose: 1,000 mcg Docusate Sodium (Colace) 100 mg PO BID [facility] Last Admin: 07/30/16 17:12 Dose: 100 mg Ferrous Sulfate (Feosol) 324 mg PO BID [facility] Last Admin: 07/30/16 17:12 Dose: 324 mg Furosemide (Lasix) 40 mg IVP DAILY [facility] Last Admin: 07/30/16 09:46 Dose: 40 mg Guaifenesin (Robitussin) 100 mg PO Q4H PRN PRN Reason: Cough Last Admin: 07/30/16 10:08 Dose: 100 mg Heparin Sodium (Porcine) (Heparin) 5,000 units SC Q12 [facility] PRN Reason: Protocol Last Admin: 07/30/16 09:47 Dose: 5,000 units Sodium Chloride (Sodium Chloride 0.9%) 1,000 mls @ 75 mls/hr IV .[id number] [facility] Last Admin: 07/29/16 18:57 Dose: 75 mls/hr Piperacillin Sod/Tazobactam Sod (Zosyn 3.375 In Ns 100ml) 100 mls @ 200 mls/hr IVPB Q6 [facility] PRN Reason: Protocol Stop: 08/11/16 18:01 Last Admin: 07/30/16 17:10 Dose: 200 mls/hr Ceftriaxone Sodium (Rocephin 1 Gram Ivpb) 1 gm in 100 mls @ 100 mls/hr IVPB DAILY [facility] PRN Reason: Protocol Stop: 08/11/16 14:46 Last Admin: 07/30/16 09:47 Dose: 100 mls/hr Insulin Human Regular (Humulin R Low) 0 units SC ACHS [facility] PRN Reason: Protocol Last Admin: 07/30/16 16:45 Dose: Not Given Levothyroxine Sodium (Synthroid) 75 mcg PO 0630 [facility] Last Admin: 07/30/16 06:17 Dose: 75 mcg Nystatin (Nystop Topical Powder) 0 gm TOP BID [facility] Last Admin: 07/30/16 17:13 Dose: 1 applic Ondansetron HCl (Zofran Inj) 4 mg IVP Q6H PRN PRN Reason: Nausea/Vomiting Pantoprazole Sodium (Protonix Ec Tab) 40 mg PO ACB [facility] Last Admin: 07/30/16 08:11 Dose: 40 mg Silver Sulfadiazine (Silvadene 1% 20 Gm) 1 ea TOP BID [facility] Last Admin: 07/30/16 17:13 Dose: 1 applic - Labs Labs: 07/30/16 06:30 07/30/16 06:30 PT 10.3 Seconds (9.9-11.8) 07/24/16 23:00 INR 0.95 (0.93-1.08) 07/24/16 23:00 APTT 29.6 Seconds (23.7-30.8) 07/24/16 23:00 - Constitutional Appears: Non-toxic, No Acute Distress - Head Exam Head Exam: NORMAL INSPECTION - ENT Exam ENT Exam: Mucous Membranes Moist - Neck Exam Neck Exam: absent: Lymphadenopathy, Meningismus - Respiratory Exam Respiratory Exam: Decreased Breath Sounds - Cardiovascular Exam Cardiovascular Exam: +S1, +S2 - GI/Abdominal Exam GI & Abdominal Exam: Soft. absent: Tenderness Assessment and Plan - Assessment and Plan (Free Text) Plan: Assessment Sepsis due to Proteus, Klebsiella and E. faecalis bacteremia, R/O PICC line as the source; no evidence of intra-abdominal infection on CT abdomen and pelvis and urinalysis does not show pyuria making UTI unlikely; S/P PICC line removal right chest wall edema, etiology unclear history of acute severe rhabdomyolysis history of acute gangrenous cholecystitis/ biliary tree infection in a patient with biliary tree stones S/P lap cholecystectomy - grew Kleb oxytoca, pneumoniae , and Proteus mirabilis - patient with probable gallbladder fossa abscess post- op S/P CT-guided drainage HTN chronic CHF DM morbid obesity with BMI 45 hypothyroidism S/P hysterectomy S/P bilateral knee replacements dyslipidemia history of TIA dyslipidemia history of chronic lower extremity cellulitis degenerative arthritis Plan continue Zosyn and Rocephin (day 4 from first negative blood cx) based on susceptibilities; will need at least 14 days of therapy Will continue to monitor clinically
--- NOTE | 2016-07-31 00:45 | PN ---
DATE: 07/30/2016 ADDENDUM This is an addendum to the GI progress report dictated by Dr. Merino. The patient was seen and evaluated earlier today. The patient did have an ERCP and placement of biliary stent yesterday. The drainage tube, her bile drainage has significantly decreased. The patient did have significant improvement. The reasonable thing is to consider repeating the CAT scan. Removal of the external drainage tube. We will discuss with also Dr. Elias. Thank you very much for allowing us to participate in the care of the patient. Kavon Duncan MD cc: [phone] TT: 07/31/2016 00:44:48 Confirmation # [id number] Dictation # [id number] MTDD
[2016-07-31] MEDS: Albuterol-Ipratrop 3 mg / 0.5 (3 ml) UD IH SCH ×4 (01:30→15:27)
[2016-07-31] MEDS: guaiFENesin 100 mg/5 ml Syrup UD PO PRN (05:40)
[2016-07-31] MEDS: Piperacillin/Tazobact 3.375 gm 100 ML IVPB SCH ×2 (05:40→15:26)
[2016-07-31] MEDS: Levothyroxine 75 MCG TAB PO SCH (05:41)
[2016-07-31] MEDS: Sodium Chloride 0.9% 1,000 ML IV SCH (05:44)
[2016-07-31 06:15] LABS: ADD MANUAL DIFF? NO
[2016-07-31 06:23] LABS: BASO # 0.02 K/mm3 (0.0-2.0); BASO % 0.1 % (0.0-3.0); EOS # 1.5 (0.0-0.7); EOS % 9.3 % (1.5-5.0); GRAN # 12.91 (1.4-6.5); GRAN % 77.8 % (50.0-68.0); HEMATOCRIT 27.6 % (36.0-48.0); LYMPH # 1.1 (1.2-3.4); LYMPH % 6.4 % (22.0-35.0); MEAN CELL VOLUME 93.9 fL (80.0-105.0); MEAN CORPUSCULAR HEMOGLOBIN 30.3 pg (25.0-35.0); MEAN CORPUSCULAR HGB CONC 32.2 g/dl (31.0-37.0); MEAN PLATELET VOLUME 9.5 fl (7.0-11.0); MONO # 1.1 (0.1-0.6); MONO % 6.4 % (1.0-6.0); PLATELET COUNT 303 10^3/uL (120.0-450.0); RED CELL DISTRIBUTION WIDTH 15.9 % (11.5-14.5); WHITE BLOOD COUNT 16.6 10^3/ul (4.5-11.0)
[2016-07-31 06:41] LABS: CALCIUM 9.3 mg/dL (8.4-10.5); POTASSIUM 3.8 mmol/L (3.6-5.0)
[2016-07-31 07:57] VITALS: BP 140/70; PULSE 113; RESP 22; TEMP 99.3; O2SAT 95
[2016-07-31] MEDS: Acetylcysteine 20% Inhal Soln (4ml) IH SCH ×2 (08:11→11:27)
[2016-07-31] MEDS: Insulin Reg-LOW-Coverage SC SCH ×2 (08:42→15:26)
[2016-07-31] MEDS: Pantoprazole 40 mg EC Tab PO SCH (08:43)
[2016-07-31] MEDS: cefTRIAXone 1 gm 1 GM/100 ML BAG IVPB SCH (10:44)
[2016-07-31] MEDS: Nystatin 100,000 Units/gm Topical Pow(15 gm) TOP SCH (10:44)
[2016-07-31] MEDS: Silver Sulfadiazine 1% Cream (20 gm) TOP SCH (10:45)
--- NOTE | 2016-07-31 16:41 | CP.PCM.PN ---
Subjective - Date & Time of Evaluation Date of Evaluation: 07/31/16 Time of Evaluation: 11:00 - Subjective Subjective: Patient is comfortable, no diarrhea, no nausea or vomiting, not in distress, no fevers overnight. Objective - Vital Signs/Intake and Output Vital Signs (last 24 hours): Temp Pulse Resp BP Pulse Ox 99.3 F 113 H 22 140/70 95 07/31/16 07:56 07/31/16 07:56 07/31/16 07:56 07/31/16 10:34 07/31/16 07:56 Intake and Output: 07/31/16 07/31/16 06:59 18:59 Intake Total 1595 600 Output Total 300 400 Balance 1295 200 - Labs Labs: 07/31/16 06:00 07/31/16 06:00 PT 10.3 Seconds (9.9-11.8) 07/24/16 23:00 INR 0.95 (0.93-1.08) 07/24/16 23:00 APTT 29.6 Seconds (23.7-30.8) 07/24/16 23:00 - Constitutional Appears: Non-toxic, No Acute Distress - Head Exam Head Exam: NORMAL INSPECTION - ENT Exam ENT Exam: Mucous Membranes Moist - Neck Exam Neck Exam: absent: Lymphadenopathy, Meningismus - Respiratory Exam Respiratory Exam: Decreased Breath Sounds - Cardiovascular Exam Cardiovascular Exam: +S1, +S2 - GI/Abdominal Exam GI & Abdominal Exam: Soft. absent: Tenderness Assessment and Plan - Assessment and Plan (Free Text) Plan: Assessment Sepsis due to Proteus, Klebsiella and E. faecalis bacteremia, consider PICC line as the source; no evidence of intra-abdominal infection on CT abdomen and pelvis and urinalysis does not show pyuria making UTI unlikely; S/P PICC line removal right chest wall edema, etiology unclear history of acute severe rhabdomyolysis history of acute gangrenous cholecystitis/ biliary tree infection in a patient with biliary tree stones S/P lap cholecystectomy - grew Kleb oxytoca, pneumoniae , and Proteus mirabilis - patient with probable gallbladder fossa abscess post- op S/P CT-guided drainage HTN chronic CHF DM morbid obesity with BMI 45 hypothyroidism S/P hysterectomy S/P bilateral knee replacements dyslipidemia history of TIA dyslipidemia history of chronic lower extremity cellulitis degenerative arthritis Plan continue Zosyn and Rocephin (day 5 from first negative blood cx) based on susceptibilities; will need at least 14 days of therapy; WBC count is elevated and should be monitored when the patient is transferred to the half-way to complete her antibiotic therapy - discussed with Dr. Beltran
--- NOTE | 2016-07-31 17:25 | CP.PCM.PN ---
Subjective - Date & Time of Evaluation Date of Evaluation: 07/31/16 Time of Evaluation: 11:00 - Subjective Subjective: Seen and examined at bedside. CHRISTIANO drain removed, scant drainage at T tube drain. No c/o abdominal pain. No new complaints. Objective - Vital Signs/Intake and Output Vital Signs (last 24 hours): Temp Pulse Resp BP Pulse Ox 99.3 F 113 H 22 140/70 95 07/31/16 07:56 07/31/16 07:56 07/31/16 07:56 07/31/16 10:34 07/31/16 07:56 Intake and Output: 07/31/16 07/31/16 06:59 18:59 Intake Total 1595 600 Output Total 300 400 Balance 1295 200 - Labs Labs: 07/31/16 06:00 07/31/16 06:00 PT 10.3 Seconds (9.9-11.8) 07/24/16 23:00 INR 0.95 (0.93-1.08) 07/24/16 23:00 APTT 29.6 Seconds (23.7-30.8) 07/24/16 23:00 - Constitutional Appears: No Acute Distress - Head Exam Head Exam: NORMOCEPHALIC - Eye Exam Eye Exam: Normal appearance. absent: Scleral icterus - ENT Exam ENT Exam: Mucous Membranes Moist - Neck Exam Neck Exam: Normal Inspection - Respiratory Exam Respiratory Exam: NORMAL BREATHING PATTERN. absent: Respiratory Distress - Cardiovascular Exam Cardiovascular Exam: +S1, +S2 - GI/Abdominal Exam GI & Abdominal Exam: Soft (obsese, t tube site intact, no eyrethema, or drainage , nontender), Normal Bowel Sounds. absent: Guarding, Tenderness, Organomegaly, Rebound - Extremities Exam Extremities Exam: Pedal Edema. absent: Calf Tenderness - Neurological Exam Neurological Exam: Alert, Awake, Oriented x3 Assessment and Plan - Assessment and Plan (Free Text) Assessment: ASSESSMENT: s/p ERCP with bilary stent for leak s/p gangrenous gallbladder, cholecytectomy s/p abcess post op with tube insertion Sepsis Decubitus ulcer chronic constipation COPD Anemia DM CAD PLAN: continue diet, on puree IV antibiotics PPI C DVT prophylaxsis, on heparin Iron supplement bowel regimine: stool softners moniitor LFT Transfer back to [facility] The patient was seen and case discussed with Dr. Duncan.
--- NOTE | 2016-08-01 02:17 | PN ---
DATE: 07/31/2016 ADDENDUM: This is an addendum to the GI progress report dictated by Sweetie Reece NP. The patient padron s significant decrease from the drainage tube. Status post ERCP, stent placement. Continue the pres ent management and follow up with the LFTs. The patient may need a repeat CT prior to the removal of the drainage tube. There is biliary drainage in the drainage tube. Would recommend repeating the [facility] [employer] in about 4-6 weeks' time for removal of the stent. Kavon Duncan MD cc: [phone] TT: 08/01/2016 02:16:44 Confirmation # [id number] Dictation # [id number]
== END 2016-07-31 15:57 | DRG 871 ==
LOC: ED 13:22 → UNDOADMIN 07-25 00:35 → ERH 07-25 00:35 → 3RNO 07-25 16:21
PROVIDERS: ADMIT Internal Medicine; ATTEND Internal Medicine
PROC: 3E0F7GC Introduction of Other Therapeutic Substance into Respiratory Tract, Via Natural or Artificial Opening (ICD-10-PCS; 2016-07-25)
PROC: 02HV33Z Insertion of Infusion Device into Superior Vena Cava, Percutaneous Approach (ICD-10-PCS; 2016-07-29)
PROC: 0DJ08ZZ Inspection of Upper Intestinal Tract, Via Natural or Artificial Opening Endoscopic (ICD-10-PCS; principal; 2016-07-29 14:45)
PROC: BF47ZZZ Ultrasonography of Pancreas (ICD-10-PCS; 2016-07-29 14:45)
PROC: BF40ZZZ Ultrasonography of Bile Ducts (ICD-10-PCS; 2016-07-29 14:45)
PROC: 0F798DZ Dilation of Common Bile Duct with Intraluminal Device, Via Natural or Artificial Opening Endoscopic (ICD-10-PCS; 2016-07-29 14:45)
PROC: 30233N1 Transfusion of Nonautologous Red Blood Cells into Peripheral Vein, Percutaneous Approach (ICD-10-PCS; 2016-07-30)
DX: A41.59 Other Gram-negative sepsis (principal); L89.153 Pressure ulcer of sacral region, stage 3; N39.0 Urinary tract infection, site not specified; I13.0 Hypertensive heart and chronic kidney disease with heart failure and stage 1 through stage 4 chronic kidney disease, or unspecified chronic kidney disease; E11.22 Type 2 diabetes mellitus with diabetic chronic kidney disease; K83.1 Obstruction of bile duct; Z68.42 Body mass index [BMI] 45.0-49.9, adult; I50.9 Heart failure, unspecified; K83.8 Other specified diseases of biliary tract; L03.115 Cellulitis of right lower limb; L03.116 Cellulitis of left lower limb; E66.01 Morbid (severe) obesity due to excess calories; J44.9 Chronic obstructive pulmonary disease, unspecified; E78.5 Hyperlipidemia, unspecified; E03.9 Hypothyroidism, unspecified; N18.3 Chronic kidney disease, stage 3 (moderate); I25.10 Atherosclerotic heart disease of native coronary artery without angina pectoris; G47.33 Obstructive sleep apnea (adult) (pediatric); K59.09 Other constipation; K29.70 Gastritis, unspecified, without bleeding; D63.8 Anemia in other chronic diseases classified elsewhere; M19.90 Unspecified osteoarthritis, unspecified site; Z96.653 Presence of artificial knee joint, bilateral; Z86.73 Personal history of transient ischemic attack (TIA), and cerebral infarction without residual deficits; Z74.01 Bed confinement status; Z86.718 Personal history of other venous thrombosis and embolism; Z87.11 Personal history of peptic ulcer disease; Z90.710 Acquired absence of both cervix and uterus; Z90.49 Acquired absence of other specified parts of digestive tract; Z87.891 Personal history of nicotine dependence